=== PATIENT | male | born 1940 | race Caucasian/White ===

== ENCOUNTER 2018-02-06 00:23 | Outpatient (CLI) | payer MEDICARE, SELFPAY ==
--- NOTE | 2018-02-06 13:53 | MERGE_ITS ---
*[facility]* *[facility]* [address] [place] [address] Date of study: 02/06/2018 Transthoracic Echocardiography M-mode, complete 2D, complete spectral Doppler, and color Doppler *STUDY CONCLUSIONS* Summary: 1. Left ventricle: The cavity size was normal. Wall thickness was increased in a pattern of mild LVH. Systolic function was normal. The estimated ejection fraction was 60-65%. Wall motion was normal; there were no regional wall motion abnormalities. 2. Right ventricle: The cavity size was normal. Systolic function was normal. 3. Left atrium: The atrium was mildly dilated. 4. Aortic valve: A bioprosthesis was present and functioning normally. There was trivial regurgitation. Peak velocity (S): 2.3m/sec. Mean gradient (S): 11mm Hg. 5. Inferior vena cava: The vessel was normal in size. The respirophasic diameter changes were in the normal range (greater than or equal to 50%), consistent with normal central venous pressure. *PATIENT PRESENTATION* Height: 182.9cm ((72in) ) S/D Pressure: 159 / 81 Weight: 106.6kg ((234.5lb) ) BSA: 2.36m^2 Test start time: 01:53 PM. Test stop time: 03:10 PM. 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 Pertinent images and digital data are archived for permanent storage and are available for subsequent review. Comparison was made to the study of 01/07/2017. Study status: Routine. Transthoracic echocardiography. M-mode, complete 2D, complete spectral Doppler, and color Doppler. A Transthoracic Echocardiogram was performed. Scanning was performed from the parasternal, apical, subcostal, and suprasternal notch acoustic windows. Images were obtained using an [employer] 2000 cardiac ultrasound machine. Image quality was adequate. Study completion: The patient tolerated the procedure well. There were no complications. History: PMH: Bioprosthetic Aortic Valve, Aortic Stenosis. *CARDIAC ANATOMY* Left ventricle: The cavity size was normal. Wall thickness was increased in a pattern of mild LVH. Systolic function was normal. The estimated ejection fraction was 60-65%. Wall motion was normal; there were no regional wall motion abnormalities. Findings consistent with diastolic dysfunction. There was no evidence of elevated ventricular filling pressure by Doppler parameters. Aortic valve: A bioprosthesis was present and functioning normally. Mobility was not restricted. Doppler: Transvalvular velocity was within the normal range. There was no stenosis. There was trivial regurgitation. VTI ratio of LVOT to aortic valve: 0.62. Valve area (VTI): 2.3cm^2. Indexed valve area (VTI): 1cm^2/m^2. Peak velocity ratio of LVOT to aortic valve: 0.51. Valve area (Vmax): 1.9cm^2. Indexed valve area (Vmax): 0.8cm^2/m^2. Mean velocity ratio of LVOT to aortic valve: 0.49. Valve area (Vmean): 1.8cm^2. Indexed valve area (Vmean): 0.8cm^2/m^2. Mean gradient (S): 11mm Hg. Peak gradient (S): 21mm Hg. Aorta: Aortic root: The aortic root was normal in size. Ascending aorta: The ascending aorta was normal in size. Mitral valve: Mildly thickened leaflets. Mobility was not restricted. Doppler: Transvalvular velocity was within the normal range. There was no evidence for stenosis. There was mild regurgitation. Valve area by pressure half-time: 1.9cm^2. Indexed valve area by pressure half-time: 0.8cm^2/m^2. Left atrium: The atrium was mildly dilated. Right ventricle: The cavity size was normal. Systolic function was normal. Pulmonic valve: Poorly visualized. Doppler: Transvalvular velocity was within the normal range. There was no evidence for stenosis. There was mild to moderate regurgitation. Tricuspid valve: Structurally normal valve. Doppler: Transvalvular velocity was within the normal range. There was no evidence for stenosis. There was mild regurgitation. Pulmonary artery: Poorly visualized. Pulmonary systolic pressure was within the normal range, in the range of 30mm Hg to 35mm Hg. Right atrium: The atrium was dilated. Pericardium: There was no pericardial effusion. Systemic veins: Inferior vena cava: The vessel was normal in size. The respirophasic diameter changes were in the normal range (greater than or equal to 50%), consistent with normal central venous pressure. Measurements Left ventricle Value 01/07/2017 Reference LV ID, ED, PLAX 5.2 cm 6.1 3.5 - 6.0 LV ID, ES, PLAX (H) 4.1 cm 4.1 2.1 - 4.0 LV PW thickness, ED, PLAX 1.2 cm 1.1 LV end-diastolic volume, 121 ml 94 1-p A2C LV ejection fraction, 1-p 65 % 44 A2C LV end-diastolic volume, 104 ml 115 1-p A4C LV ejection fraction, 1-p 70 % 52 A4C LV e', lateral 0.089 m/sec LV E/e', lateral 6 LV e', medial 0.05 m/sec LV E/e', medial 11 LV e', average 0.069 m/sec LV E/e', average 8 Ventricular septum Value 01/07/2017 Reference IVS thickness, ED, PLAX 1.2 cm 1.0 LVOT Value 01/07/2017 Reference LVOT ID, A-P 2.2 cm 2.4 LVOT area 3.7 cm^2 4.5 LVOT peak velocity, S 1.16 m/sec 1.02 LVOT mean velocity, S 0.75 m/sec LVOT VTI, S 24.1 cm 25.4 LVOT peak gradient, S 5.4 mm Hg LVOT mean gradient, S 2.7 mm Hg 2 Stroke volume (SV), LVOT 90 ml DP Stroke index (SV/bsa), 38 ml/m^2 LVOT DP Aortic valve Value 01/07/2017 Reference Aortic valve peak 2.3 m/sec 2.4 velocity, S Aortic valve mean 1.53 m/sec velocity, S Aortic valve VTI, S 39.0 cm Aortic mean gradient, S 11 mm Hg 12 Aortic peak gradient, S 21 mm Hg 23 VTI ratio, LVOT/AV 0.62 0.49 Aortic valve area, VTI 2.3 cm^2 2.2 Velocity ratio, peak, 0.51 0.42 LVOT/AV Aortic valve area, peak 1.9 cm^2 1.9 velocity Velocity ratio, mean, 0.49 LVOT/AV Aortic valve area, mean 1.8 cm^2 velocity Aortic valve area/bsa, 0.8 cm^2/m^2 mean velocity Aorta Value 01/07/2017 Reference Aortic root ID, ED 3.4 cm 3.7 Ascending aorta ID, A-P, S 3.8 cm 3.8 Left atrium Value 01/07/2017 Reference LA ID, A-P, ES 4.6 cm LA ID/bsa, A-P 2.0 cm/m^2 <=2.2 LA area, ES, A4C (H) 24.9 cm^2 26 8.8 - 23.4 LA area, ES, A2C 27 cm^2 LA volume/bsa, S 39 ml/m^2 LA volume, ES, 2-p 84 ml LA volume/bsa, ES, 2-p 36 ml/m^2 LA/aortic root ratio 1.36 1.12 Mitral valve Value 01/07/2017 Reference Mitral E-wave peak 0.55 m/sec 0.63 velocity Mitral A-wave peak 0.89 m/sec 0.86 velocity Mitral deceleration time (H) 410 ms 150 - 230 Mitral pressure half-time 119 ms 80 Mitral E/A ratio, peak 0.61 0.74 Mitral valve area, PHT, DP 1.9 cm^2 2.7 Tricuspid valve Value 01/07/2017 Reference Tricuspid regurg peak 2.6 m/sec 2.7 velocity Tricuspid peak RV-RA 27.5 mm Hg 30 gradient Right atrium Value 01/07/2017 Reference RA area, ES, A4C (H) 29.9 cm^2 27 8.3 - 19.5 Legend: (L) and (H) thiago values outside specified reference range. I have personally reviewed the images and have reviewed and edited the reported findings. Electronically signed by Tiffany De Oliveira 02/07/2018 16:02
== END 2018-02-06 00:43 ==
PROVIDERS: PCP Family Medicine; Visit Provider Internal Medicine Interventional Cardiology
DX: I35.0 Nonrheumatic aortic (valve) stenosis (principal); Z95.2 Presence of prosthetic heart valve; I51.7 Cardiomegaly
CPT/HCPCS: 93306

== ENCOUNTER → 2018-02-23 10:43 | Outpatient (BNVA) | payer MEDICARE, SELFPAY | PROVIDERS: Visit Provider Internal Medicine Interventional Cardiology | DX: I35.0 Nonrheumatic aortic (valve) stenosis (principal); R00.2 Palpitations; I10 Essential (primary) hypertension | CPT/HCPCS: 99213 ==

== ENCOUNTER 2018-02-27 02:44 | Outpatient (CLI) | payer MEDICARE, SELFPAY ==
[2018-02-27 11:28] LABS: ALT 36 U/L (12-78); AST 21 U/L (15-37); Alkaline Phosphatase 63 U/L (46-116); Bilirubin, Direct 0.19 mg/dL (0.00-0.20); Bilirubin, Total 0.8 mg/dL (0.2-1.0); Total Protein 7.1 g/dL (6.4-8.2)
[2018-02-27 11:40] LABS: Cholesterol 185 mg/dL (50-200); HDL Cholesterol 52 mg/dL (40-60); LDL CHOLESTEROL 115 mg/dL (<100); Triglyceride 118 mg/dL (30-150)
== END 2018-02-27 03:04 ==
PROVIDERS: PCP Family Medicine; Visit Provider Internal Medicine Interventional Cardiology
DX: E78.5 Hyperlipidemia, unspecified (principal); I35.0 Nonrheumatic aortic (valve) stenosis
CPT/HCPCS: 36415; 80061; 80076; 83721

== ENCOUNTER 2019-05-26 00:55 | Outpatient (CLI) | payer MEDICARE, SELFPAY ==
[2019-05-26 10:48] LABS: Anion Gap 9.3 mmol/L (3-11); BUN 20 mg/dL (7-18); CO2 28.7 mmol/L (21.0-32.0); CREATININE 0.83 mg/dL (0.70-1.30); Calcium 9.2 mg/dL (8.5-10.1); Chloride 106 mmol/L (98-107); Glucose 100 mg/dL (74-106); Potassium 4.5 mmol/L (3.5-5.1); Sodium 144 mmol/L (136-145)
== END 2019-05-26 01:15 ==
PROVIDERS: PCP Nurse Practitioner; Visit Provider Family Medicine
DX: I10 Essential (primary) hypertension (principal)
CPT/HCPCS: 36415; 80048

== ENCOUNTER 2019-11-01 14:19 | Outpatient (REF) | payer MEDICARE, SELFPAY ==
[2019-11-01 15:43] LABS: Bilirubin Negative (Negative); Blood Negative (Negative); Clarity Clear (Clear); Glucose Negative (Negative); Ketones Negative (Negative); Leukocyte Esterase Negative (Negative); Nitrite Negative (Negative); Specific Gravity 1.025 (1.005-1.025); pH 5.5 (5-8)
== END 2019-11-01 14:39 ==
LOC: LBN 14:19
PROVIDERS: PCP Nurse Practitioner; Visit Provider Family Medicine
DX: N20.0 Calculus of kidney (principal); R82.998 Other abnormal findings in urine
CPT/HCPCS: 81003

== ENCOUNTER 2020-05-31 03:59 | Outpatient (CLI) | payer MEDICARE, SELFPAY ==
[2020-05-31 12:56] LABS: Calculated LDL 90 mg/dL (<100); Cholesterol 164 mg/dL (<200); HDL Cholesterol 54 mg/dL (40-60); Triglyceride 104 mg/dL (<150)
== END 2020-05-31 04:19 ==
PROVIDERS: PCP Nurse Practitioner; Visit Provider Nurse Practitioner
DX: I10 Essential (primary) hypertension (principal)
CPT/HCPCS: 36415; 80061; 82565

== ENCOUNTER → 2020-06-02 08:58 | Outpatient (BNVA) | payer MEDICARE, SELFPAY | PROVIDERS: PCP Nurse Practitioner; Referring Provider Nurse Practitioner; Visit Provider Internal Medicine Cardiovascular Disease | DX: I35.0 Nonrheumatic aortic (valve) stenosis (principal); Z95.3 Presence of xenogenic heart valve; R00.2 Palpitations; I10 Essential (primary) hypertension; E78.5 Hyperlipidemia, unspecified | CPT/HCPCS: 99215 ==

== ENCOUNTER 2020-06-21 02:16 | Outpatient (CLI) | payer MEDICARE, SELFPAY ==
--- NOTE | 2020-06-21 13:52 | DI.US_ITS ---
APPROVED REPORT EXAM: Comprehensive 2D, Doppler, and color-flow Echocardiogram Patient Location: Out-Patient Reinforcing Steel Erector: Sujey Lima RDCS (AE) Indications: Bioprosthetic Aortic Valve, Palpitations, Aortic Valve Stenosis Other Information Study Quality: Adequate Conclusion Left Ventricle : The left ventricle is normal size. The left ventricular systolic function is normal. The left ventricular ejection fraction is within the normal range. There is normal left ventricular wall thickness. There is normal LV segmental wall motion. The left ventricular diastolic function is normal. LVEF is 60%. Right Ventricle : The right ventricle is normal size. The right ventricular systolic function is norm al. The RVSP is 33.8 mmHg. Atria : The right atrium size is normal. Left atrium is mildly dilated. Aortic Valve : A bioprosthetic aortic valve is present. It appears to be functioning normally withou t any perivalvular leak. Trace aortic regurgitation. Peak aortic valve gradient is 22.8mmHg. Mean gra dient is 12 mmHg. Mitral Valve : Moderate mitral annular calcification. Mild mitral regurgitation. No evidence of tangela l valve stenosis. Please see remainder of study for further details. Compared to study from 02/06/2018, there is no significant change. Wall motion Left Ventricle The left ventricle is normal size. The left ventricular systolic function is normal. The left ventric ular ejection fraction is within the normal range. There is normal left ventricular wall thickness. T here is normal LV segmental wall motion. The left ventricular diastolic function is normal. There is no ventricular septal defect visualized. LVEF is 60%. Right Ventricle The right ventricle is normal size. The right ventricular systolic function is normal. The RVSP is 33 .8 mmHg. Atria Left atrium is mildly dilated. The right atrium size is normal. The interatrial septum is intact with no evidence for an atrial septal defect. Aortic Valve A bioprosthetic aortic valve is present. It appears to be functioning normally without any perivalvul ar leak. Peak aortic valve gradient is 22.8mmHg. Mean gradient is 12 mmHg. Trace aortic regurgitation . Mitral Valve Moderate mitral annular calcification. No evidence of mitral valve stenosis. Mild mitral regurgitatio n. Tricuspid Valve The tricuspid valve is normal in structure. There is no tricuspid valve stenosis. Mild to moderate tr icuspid regurgitation. Pulmonic Valve The pulmonary valve is normal in structure. There is no pulmonic valvular stenosis. Moderate pulmonic regurgitation. Great Vessels The aortic root is normal in size. The ascending aorta is mildly dilated. Aortic arch is normal in ca liber. IVC is normal in size and collapses >50% with inspiration. Pericardium There is no pericardial effusion. 2D Dimensions IVSD d PLAX 0.97 cm M: 0.6-1.2 LV Vol A2C d MOD 132.2 mL LVPW d PLAX 0.97 cm M: 0.6 - 1.2 LV Vol A4C d MOD 132.2 mL LVID d PLAX 5.67 cm M: 4.2 - 5.8 LA vol/ BSA A2C s A-L 39.9 mL/m2 LVDs 3.25 cm M: 2.5 - 4.0 LA vol/ BSA A4C s A-L 29.1 mL/m2 Ao Root d 3.49 cm M: 3.1 - 3.7 LA Vol/ BSA Biplane s A-L 34.4 mL/m2 RA Area A4C 22.67 cm2 LA Area A4C s MOD 23.19 cm2 RA Vol/ BSA A4C s A-L 32.2 mL/m2 LA Area A2C s MOD 27.46 cm2 Ao Asc Diam d 3.86 cm M: 2.6 - 3.4 LV EF A4C MOD 61.8 % LV EF Teichholz 72.6 % LV EF A2C MOD 60.0 % LVEF (Rangel's) 61.21 % M: 52 - 72 LV EF Biplane MOD 61.2 % LV Volume 95.86 mL M: 62 - 150 SV 82.03 mL LV Volume Index 41.31 mL/m2 M: 34 - 74 SV Index 35.32 mL/m2 LV Vol Biplane MOD 134.0 mL FS 42.20 % M-Mode TAPSE 2.60 cm (M/F) >1.7 LV Diastology MV E' medial 0.069 (>0.07 m/s) E/A Ratio 0.8 LV E/e MED 11.25 (<14) MV E Vmax 0.78 (0.4-1.3 m/s) MV E' lateral 0.064 (>0.1 m/s) MV A Vmax 0.95 (0.4-1.3 m/s) LV E/e LAT 12.10 (<14) MV E/A Ratio 0.79 MV E/E' medial 11.27 MV E/E' lateral 12.13 Aortic Valve LVOT Area 3.65 cm2 AoV Area Vmax 2.34 cm2 LVOT Vmax 1.53 m/s AoV Area/ BSA (Vmax) 1.01 cm2/m2 LVOT Mean Mario. 1.09 m/s MARISOL Mean Mario. 2.42 cm2 LVOT Peak Grad 9.4 mmHg MARISOL Mean Mario. Index 1.04 cm2/m2 LVOT Mean Grad 5.4 mmHg LVOT VTI 0.352 m LVOT Diam s 2.15 cm AoV Vmax 2.39 m/s Velocity Ratio 0.64 AoV Mean Mario. 1.64 m/s AoV Peak Grad 22.8 mmHg LVOT SV 128.46 mL AoV Mean Grad 12.1 mmHg AoV VTI 0.516 m AoV Area VTI 2.49 cm2 AoV Area/ BSA (VTI) 1.07 cm/m2 Mitral Valve MV DT 244 (160-240 msec) MV PHT 71 msec MV Area PHT 3.10 cm2 MV VTI 0.381 m MV Area VTI 3.37 (4.0-6.0 cm2) Pulmonary Valve PV Vmax 1.18 (0.5-1.5 m/s) RVOT Peak Gr. 1.58 mmHg PV Peak Grad 5.6 mmHg RVOT Mean Gr. 0.85 mmHg PV Mean Grad 2.5 mmHg RVOT VTI 0.160 m PV VTI 0.236 m RVOT Vmax 0.63 m/s Tricuspid Valve TR Peak Grad 30.7 mmHg TR Vmax 2.77 m/s RA Pressure 3.00 mmHg RVSP (TR) 33.8 mmHg
== END 2020-06-21 02:17 ==
LOC: DI 02:16
PROVIDERS: PCP Nurse Practitioner; Visit Provider Internal Medicine Cardiovascular Disease
DX: I08.0 Rheumatic disorders of both mitral and aortic valves (principal); R00.2 Palpitations; Z95.3 Presence of xenogenic heart valve
CPT/HCPCS: 93306

== ENCOUNTER 2020-06-21 03:12 | Outpatient (CLI) | payer MEDICARE, SELFPAY ==
--- NOTE | 2020-07-07 08:46 | W.ZIOMONITOR ---
Date of service: 07/07/20 Time of Service: 08:46 14 Day Certified Alcohol Drug Counselor Referring Provider:: Roxana Indications:: Palpitations Note: This is a 14-day Holter monitor. The predominant rhythm was sinus with an average heart rate of 53, minimum 40 and maximum 132 There were rare atrial and ventricular ectopic beats There was no ventricular tachycardia atrial fibrillation high-grade AV block or pauses greater than 3 seconds There were several brief self-limited atrial runs longest of which lasted 9 beats. These were asymptomatic. Patient triggered events corresponded to sinus rhythm , generally heart rates of 67-74
== END 2020-06-21 03:13 | disposition home or self-care (01) ==
LOC: RT 03:12
PROVIDERS: PCP Nurse Practitioner; Visit Provider Internal Medicine Cardiovascular Disease
DX: R00.2 Palpitations (principal); I08.0 Rheumatic disorders of both mitral and aortic valves; Z95.3 Presence of xenogenic heart valve
CPT/HCPCS: 93246; 93306

== ENCOUNTER 2020-07-07 08:46 | Outpatient (CLI) | payer MEDICARE, SELFPAY | END 2020-07-07 08:47 | LOC: CARDO 08-07 15:49 | PROVIDERS: PCP Nurse Practitioner; Referring Provider Internal Medicine Cardiovascular Disease; Visit Provider Internal Medicine Cardiovascular Disease | DX: R00.2 Palpitations (principal); I49.1 Atrial premature depolarization | CPT/HCPCS: 93248 ==

== ENCOUNTER → 2020-07-21 12:38 | Outpatient (BNVA) | payer MEDICARE, SELFPAY | PROVIDERS: PCP Nurse Practitioner; Referring Provider Nurse Practitioner; Visit Provider Internal Medicine Cardiovascular Disease | DX: I35.0 Nonrheumatic aortic (valve) stenosis (principal); I10 Essential (primary) hypertension; E78.5 Hyperlipidemia, unspecified; R00.2 Palpitations | CPT/HCPCS: 99213 ==

== ENCOUNTER 2021-06-05 04:12 | Outpatient (CLI) | payer MEDICARE, SELFPAY ==
[2021-06-05 13:29] LABS: Calculated LDL 103 mg/dL (<100); Cholesterol 180 mg/dL (<200); HDL Cholesterol 59 mg/dL (40-60); Triglyceride 94 mg/dL (<150)
== END 2021-06-05 04:13 | disposition home or self-care (01) ==
LOC: LBO 04:13
PROVIDERS: PCP Nurse Practitioner; Visit Provider Nurse Practitioner
DX: E78.5 Hyperlipidemia, unspecified (principal)
CPT/HCPCS: 36415; 80061

== ENCOUNTER → 2021-08-07 12:53 | Outpatient (BNVA) | payer MEDICARE, SELFPAY | PROVIDERS: PCP Nurse Practitioner; Referring Provider Nurse Practitioner; Visit Provider Internal Medicine Cardiovascular Disease | DX: I35.0 Nonrheumatic aortic (valve) stenosis (principal); I10 Essential (primary) hypertension | CPT/HCPCS: 99213 ==

== ENCOUNTER → 2022-08-08 13:31 | Outpatient (BNVA) | payer MEDICARE, SELFPAY | PROVIDERS: PCP Nurse Practitioner Family; Visit Provider Internal Medicine Cardiovascular Disease | DX: I35.0 Nonrheumatic aortic (valve) stenosis (principal); Z95.3 Presence of xenogenic heart valve | CPT/HCPCS: 99213 ==

== ENCOUNTER 2023-06-16 05:13 | Outpatient (CLI) | payer MEDICARE, SELFPAY ==
[2023-06-16 12:42] LABS: Abs Immature Grans 0.02 10^3/uL (0.0-0.06); Absolute Basophil Count 0.04 10^3/uL (0.0-0.2); Absolute Eosinophil Count 0.11 10^3/uL (0.0-0.7); Absolute Lymphocyte Count 1.59 10^3/uL (1.2-3.4); Absolute Monocyte Count 0.68 10^3/uL (0.1-0.8); Absolute Neutrophil Count 2.62 10^3/uL (1.2-6.7); Basophils % 0.8; Eosinophils % 2.2; HCT 42.3 % (40.0-50.0); Immature Grans % 0.4; Lymphocytes % 31.4; MCH 33.6 pg (27.0-33.0); MCHC 35.5 % (32.0-36.0); MCV 95 fL (80-95); MPV 10.8 fL (8.0-11.0); Monocytes % 13.4; Neutrophils % 51.8; Platelet Count 127 10^3/uL (130-400); RBC 4.46 10^6/uL (4.36-5.78); RDW 12.7 % (11.8-14.1); RDW-SD 43.9 fL; WBC 5.06 10^3/uL (4.4-10.8)
[2023-06-16 12:59] LABS: ALT 31 U/L (16-63); AST 22 U/L (15-37); Albumin 3.6 g/dL (3.4-5.0); Alkaline Phosphatase 58 U/L (46-116); Anion Gap 8.8 mmol/L (3-11); BUN 22 mg/dL (7-18); Bilirubin, Total 0.8 mg/dL (0.2-1.0); CO2 28.2 mmol/L (21.0-32.0); CREATININE 0.9 mg/dL (0.70-1.30); Calcium 9.1 mg/dL (8.5-10.1); Calculated LDL 55 mg/dL (<100); Chloride 105 mmol/L (98-107); Cholesterol 127 mg/dL (<200); Glucose 108 mg/dL (74-106); HDL Cholesterol 62 mg/dL (40-60); Potassium 3.8 mmol/L (3.5-5.1); Sodium 142 mmol/L (136-145); Total Protein 7.3 g/dL (6.4-8.2); Triglyceride 53 mg/dL (<150)
[2023-06-17 17:42] LABS: PSA, Ultrasensitive 0.61 ng/mL (<= 7.2)
== END 2023-06-16 05:14 | disposition home or self-care (01) ==
PROVIDERS: PCP Nurse Practitioner Family; Visit Provider Nurse Practitioner Family
DX: I10 Essential (primary) hypertension (principal); N20.0 Calculus of kidney; C61 Malignant neoplasm of prostate
CPT/HCPCS: 36415; 80053; 80061; 84153; 85025

== ENCOUNTER → 2023-07-18 00:04 | Outpatient (CLI) | payer MEDICARE, SELFPAY ==
--- NOTE | 2023-07-18 12:30 | DI.US_ITS ---
APPROVED REPORT EXAM: Comprehensive 2D, Doppler, and color-flow Echocardiogram Patient Location: Out-Patient Wind Turbine Installer: Dave Macdonald RDCS (AE) Indications: Check AVR, sleep apnea, aortic valve stenosis, HTN Conclusion Normal left ventricular wall thickness and chamber size. Ejection fraction is 60%. Wall motion is no rmal Mildly enlarged right ventricle Both atria are moderately dilated There is a bioprosthetic aortic valve. There is no aortic regurgitation. Mean gradient is 12 mmHg The tip of the anterior mitral leaflet is calcified. There is mild mitral regurgitation Mild to moderate tricuspid regurgitation. Estimated right ventricular systolic pressure is 32 mmHg Wall motion Left Ventricle The left ventricle is normal size. The left ventricular systolic function is normal. The left ventric ular ejection fraction is within the normal range. There is normal left ventricular wall thickness. T here is normal LV segmental wall motion. There is no ventricular septal defect visualized. LVEF is 62 -65%. Right Ventricle Right ventricle is mildly dilated. Right ventricular systolic function is grossly normal. Atria Left atrium is moderately dilated. Right atrium is moderately dilated. The interatrial septum is inta ct with no evidence for an atrial septal defect. Aortic Valve Bioprosthetic aortic valve is present. Peak aortic valve gradient is 19.7 mmHg. Highest mean aortic v alve gradient is 12.14 mmHg. Calculated MARISOL by the continuity equation is 1.2 cm2. No aortic regurgit ation is present. Mitral Valve Calcified tip anterior mitral leaflet No evidence of mitral valve stenosis. Mild mitral regurgitation . Tricuspid Valve The tricuspid valve is normal in structure. There is no tricuspid valve stenosis. Mild to moderate tr icuspid regurgitation. The RVSP is 32.5 mmHg. Pulmonic Valve The pulmonary valve is normal in structure. There is no pulmonic valvular stenosis. Moderate pulmonic regurgitation. Great Vessels The aortic root is normal in size. The ascending aorta is mildly dilated. Aortic arch is not well vis ualized. IVC is normal in size and collapses >50% with inspiration. Pericardium There is no pericardial effusion. 2D Dimensions IVSD d PLAX 0.90 cm M: 0.6-1.2 Ao Root d 3.13 cm M: 3.1 - 3.7 LVPW d PLAX 0.92 cm M: 0.6 - 1.2 Ao Asc Diam d 3.60 cm M: 2.6 - 3.4 LVID d PLAX 5.79 cm M: 4.2 - 5.8 LVDs 3.70 cm M: 2.5 - 4.0 LV EF Teichholz 64.8 % FS 35.99 % LV EDV (Teich) 165.6 mL LV ESV (Teich) 58.2 mL Stroke Vol Index (Teich) 48.13 M-Mode TAPSE 2.40 cm (M/F) >1.7 Auto EF LV EDV A4C 152.2 mL LV EDV A2C 124.1 mL LV EDV BP 139.0 mL LV ESV A4C 55.6 mL LV ESV A2C 46.8 mL LV ESV BP 51.1 mL LVEF(%) A4C 63.5 % LVEF(%) A2C 62.3 % LVEF(%) BP 63.2 % LV SV A4C 96.7 ml LV SV A2C 77.3 ml LV SV BP 87.9 ml LV CO A4C 4.9 L/min LV CO A2C 4.5 L/min LV CO BP 4.7 L/min HR A4C 50.85 BPM HR A2C 58.35 BPM LV EDV Index (BP) LA Volume LA Length A4C 6.4 cm LA Length A2C 6.2 cm LA Area A4C s 18.52 cm2 LA Area A2C s 18.95 cm2 LA Vol A4C A-L 45.46 mL LA Vol A2C A-L 49.44 mL LA Vol Biplane A-L 48.3 mL LA Vol/BSA A4C A-L LA Vol/BSA A2C A-L LA Vol/BSA BP A-L 21.7 mL/m2 LA Vol A4C MOD 44.2 mL LA Vol A2C MOD 48.6 mL LA Vol BP MOD 47.1 mL RA Volume RA Area A4C 24.8 cm2 RA ESV A4C (A-L) 84.8mL RA Vol/BSA A4C A-L RA Length A4C 6.1 cm RA ESV A4C (MOD) 86.7mL LV Diastology MV E' medial 0.067 (>0.07 m/s) MV E Vmax 0.74 (0.4-1.3 m/s) MV E/E' MED 11.08 (<14) MV A Vmax 1.15 (0.4-1.3 m/s) MV E' lateral 0.107 (>0.1 m/s) E/A Ratio 0.6 MV E/E' LAT 6.91 (<14) MV E' Average 0.087 m/s MV E/E'(average) 8.51 Aortic Valve AoV Vmax 2.22 m/s LVOT Vmax 1.14 m/s AoV Peak Grad 19.7 mmHg LVOT Peak Grad 5.2 mmHg AoV Area (Vmax) 1.24 cm2 LVOT VTI 0.252 m AoV VTI 0.490 m LVOT Mean Grad 2.6 mmHg AoV Mean Mario. 1.67 m/s LVOT SV 60.65 mL AoV Mean Grad 12.1 mmHg LVOT Diam s 1.75 cm AoV Area (VTI) 1.24 cm2 Velocity Ratio 0.51 Mitral Valve MV DT 343 (160-240 msec) Pulmonary Valve PV Vmax 1.26 (0.5-1.5 m/s) RVOT Vmax 0.45 m/s PV Peak Grad 6.3 mmHg RVOT Peak Gr. 0.8 mmHg PV Mean Mario 0.72 m/s RVOT VTI 0.113 m PV Mean Grad 2.6 mmHg RVOT Mean Gr. 0.5 mmHg Tricuspid Valve RA Pressure 3.00 mmHg TR Vmax 2.72 m/s TR Peak Grad 29.5 mmHg RVSP (TR) 32.5 mmHg
== END ==
PROVIDERS: PCP Nurse Practitioner Family; Visit Provider Internal Medicine Cardiovascular Disease
DX: G47.33 Obstructive sleep apnea (adult) (pediatric) (principal); I35.0 Nonrheumatic aortic (valve) stenosis
CPT/HCPCS: 93306

== ENCOUNTER 2023-08-07 08:17 | Outpatient (CLI) | payer MEDICARE, SELFPAY ==
--- NOTE | 2023-08-07 08:15 | RT.EKG_ITS ---
APPROVED REPORT Exam: Resting ECG Reason for Exam: palpitation Patient Location: O HR:56 bpm ECG Measurements Heart Rate 56 AXIS WA 97 P 8 QRSd 162 QRS -46 QT 464 T -11 QTc 448 Conclusion Sinus rhythm...normal P axis, V-rate 50- 99 Atrial premature complex...SV complex w/ short R-R interval Short WA interval...WA <110mS RBBB and LAFB...QRSd >120mS, axis(-40,240) Left ventricular hypertrophy...multiple voltage criteria Baseline wander in lead(s) II,III,aVF
== END 2023-08-07 08:18 | disposition home or self-care (01) ==
LOC: DI.CARD 08:18
PROVIDERS: PCP Nurse Practitioner Family; Visit Provider Internal Medicine Cardiovascular Disease
DX: R00.2 Palpitations (principal)
CPT/HCPCS: 93010

== ENCOUNTER → 2023-08-07 13:37 | Outpatient (BNVA) | payer MEDICARE, SELFPAY | PROVIDERS: PCP Nurse Practitioner Family; Visit Provider Internal Medicine Cardiovascular Disease | DX: I44.4 Left anterior fascicular block (principal); R94.31 Abnormal electrocardiogram [ECG] [EKG]; R00.2 Palpitations; I35.0 Nonrheumatic aortic (valve) stenosis | CPT/HCPCS: 93005; 99213 ==

== ENCOUNTER 2023-10-07 01:22 | Outpatient (CLI) | payer MEDICARE, SELFPAY ==
[2023-10-07 12:43] LABS: Abs Immature Grans 0.02 10^3/uL (0.0-0.06); Absolute Basophil Count 0.07 10^3/uL (0.0-0.2); Absolute Eosinophil Count 0.23 10^3/uL (0.0-0.7); Absolute Lymphocyte Count 1.56 10^3/uL (1.2-3.4); Absolute Monocyte Count 0.44 10^3/uL (0.1-0.8); Absolute Neutrophil Count 3.14 10^3/uL (1.2-6.7); Basophils % 1.3 %; Eosinophils % 4.2 %; HCT 41.6 % (40.0-50.0); HGB 14.2 g/dL (13.5-17.5); Immature Grans % 0.4 %; Lymphocytes % 28.6 %; MCH 33.2 pg (27.0-33.0); MCHC 34.1 % (32.0-36.0); MCV 97 fL (80-95); MPV 10.2 fL (8.0-11.0); Monocytes % 8.1 %; Neutrophils % 57.4 %; Platelet Count 143 10^3/uL (130-400); RBC 4.28 10^6/uL (4.36-5.78); RDW 12.9 % (11.8-14.1); WBC 5.46 10^3/uL (4.4-10.8)
[2023-10-07 13:29] LABS: ALT 27 U/L (16-63); AST 16 U/L (15-37); Albumin 3.8 g/dL (3.4-5.0); Alkaline Phosphatase 56 U/L (46-116); Anion Gap 10.9 mmol/L (3-11); BUN 24 mg/dL (7-18); Bilirubin, Total 0.7 mg/dL (0.2-1.0); CO2 24.1 mmol/L (21.0-32.0); CREATININE 0.9 mg/dL (0.70-1.30); Calcium 8.9 mg/dL (8.5-10.1); Chloride 106 mmol/L (98-107); Glucose 114 mg/dL (74-106); Potassium 3.9 mmol/L (3.5-5.1); Sodium 141 mmol/L (136-145)
[2023-10-09 13:00] LABS: PSA, Ultrasensitive 0.53 ng/mL (<= 7.2)
[2023-10-12 14:41] LABS: Testosterone, Total 393 ng/dL (240-950)
== END 2023-10-07 01:23 | disposition home or self-care (01) ==
LOC: LOS 01:22
PROVIDERS: PCP Nurse Practitioner Family; Visit Provider Internal Medicine
DX: C61 Malignant neoplasm of prostate (principal)
CPT/HCPCS: 36415; 80053; 84153; 84403; 85025

== ENCOUNTER 2024-01-09 01:22 | Outpatient (CLI) | payer MEDICARE, SELFPAY ==
--- OUTSIDE RECORDS SUMMARY | 2024-01-09 01:24 | XMS_ITS | Encounter Summary ---
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 Eliel Vanessa MD [address] [place] [id number] Franki Gutierrez MD [facility] [address] [place] [address] Referral ID Status Reason Start Date Expiration Date Visits Re quested Visits Authorized [id number] Closed 09/23/2023 09/22/2024 1 1 Encounter Details Date Type Department Care Team (Latest Contact Info) Description 10/08/2023 12:00 PM EDT Procedure visit Dermatology at [facility] [address] [place] [address] Franki Gutierrez MD [facility] [address] [place] [address] Squamous cell carcinoma of scalp Social History Tobacco Use Types Packs/Day Years Used Date Smoking Tobacco: Former Cigars Smokeless Tobacco: Never Alcohol Use Standard Drinks/Week Comments Yes 7 (1 standard drink = 0.6 oz pur e alcohol) Sex and Gender Information Value Date Recorded Sex Assigned at Not on file Gender Identity Not on file Sexual Orientation Not on file documented as of this encounter Last Filed Vital Signs Vital Sign Reading Time Taken Comments Blood Pressure 158/73 10/08/2023 11:44 AM EDT Pulse 61 10/08/2023 11:44 AM EDT Temperature - - Respiratory Rate - - Oxygen Saturation - - Inhaled Oxygen Concentration - - Weight - - Height - - Body Mass Index - - documented in this encounter Progress Notes * Franki Gutierrez MD - 10/08/2023 12:00 PM EDT Images from the original note were not included. Summary of Procedure(s): Site: left parietal scalp Tumor Type: invasive Squamous Cell Carcinoma, moderately to poorly differentiated Stages to clear tumor: 2 Repair: complex partial linear closure Images: The patient was asked to call with any issues and is aware that I am available 02/12 should questions arise. Franki Gutierrez MD PhD Mohs Micrographic Surgery and Dermatologic Oncology Department of Dermatology Please note that I have reviewed the preoperative checklist from today's nursing visit including relevant social history and medications. I have reviewed the preoperative photos if available and the biopsy report. VITAL SIGNS: BP 158/73 (BP Location (NBP): Left arm, Patient Position: Sitting, BP Cuff Sizes: Adult (25-34 cm)) Pulse 61 PHYSICAL EXAMINATION: General: patient is awake, alert, oriented and in no acute distress. Skin: Focused examination of surgical site(s) performed which shows a well healed biopsy site with surrounding ulcerated plaque and poorly defined induration. No palpable clinical lymphadenopathy. PHYSICIAN REVIEW OF REPORTS, RECORDS, IMAGES: 1) The accompanying pathology report(s) associated with aforementioned biopsy slide(s) were/was also reviewed. Assessment: Ayad Kauffman Sr. is a 82 y.o. male presenting for: 1. 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 Plan: 1. Findings from the biopsy report, today's clinical exam, and other pertinent details were reviewed with patient today. All questions were answered. 2. Discussed treatment options based on the above findings. We recommended Mohs micrographic surgery for treatment of this tumor. Mohs micrographic surgery was indicated due to patient, site and/or tumor characteristics (see operative report for specific indication). 3. We discussed risks, benefits, and alternative treatment options to the Mohs micrographic surgeryprocedure and pertinent information including but not limited to the following: Risks include bleeding, infection, scar, recurrence, incomplete tumor removal or inability to cure with surgery alone if the tumor features are more aggressive than the initial pathology indicates. Occasionally, additional adjuvant treatments may be recommended. Additional risks include large wound, prolonged wound and healing, pain, swelling, bruising, increased appearance of vessels or worsening erythema of baseline skin; more rarely risks include damage to underlying structures such as nerves, cartilage, or muscle which could lead to temporary or permanent loss of sensation or motor function. Benefit is precise tumor removal If reconstruction is performed, it is specific to the patient and defect. Discussed that the shape, size, depth of the wound is often not known until the tumor is cleared and thus the reconstruction options are sometimes not known until after tumor clearance. Occasionally,referrals to other providers may be recommended for reconstruction based on patient preference and need. Reviewed the pros and cons of common reconstructions used for this tumor type, size, and location, and that reconstruction may lead to change in appearance. Natural history of scar was discussed, including that the scar will continue to mature for 1-2 years. Recommended avoidance of special ointments or scar creams, and avoidance of direct sun exposure to the scar for optimal recovery. Reviewed that there are some aspects of cosmesis that are dependent on patient's characteristics such as age, skin laxity/texture factors, inflammatory skin diseases such as rosacea, prior surgery/radiation, degree of actinic damage, smoking status, strength of the patient's immune system, diligentwound care, medications, and genetics. Having Mohs surgery may lead to physical limitations for optimal healing, such as restricted physical activity and heavy lifting. 4. Signs and symptoms of skin cancer reviewed. Patient to report any new, changing, or symptomatic lesions and follow up with his or her laborer laboratory or other skin provider. 5. Discussed avoiding direct sun exposure to scars for best cosmetic result. Note initiated by JAMIN Vann RN has performed the documentation for this encounter in the presence of and acting as a scribe for Dr. Gutierrez I performed the above scribed service and agree with the accuracy of the documentation in this encounter. Reviewed and signed by: Franki Gutierrez [facility] * Franki Gutierrez MD - 10/08/2023 12:00 PM EDT Mohs micrographic Surgery Operative Report Patient name: Ayad Kauffman Sr. : 1940 Date: 10/08/2023 Staff Surgeon and Pathologist: Franki Gutierrez MD PhD Nursing/Die Finisher Forging(s): Abby Arroyo RN, Taisha Mueller RN, Mariely Tejada DESK REPRESENTATIVE, Rochelle WaldenShauna NET WASHER, Evan Colunga DESK REPRESENTATIVE, Tiffanie Muñoz NET WASHER, Lucina HER, France Davalos RN, Irene Huitron RN Armorer Technician (s): Bri Rivera, Lula Knox, Evan Colunga CMA Pre-operative diagnosis: invasive Squamous Cell Carcinoma, moderately to poorly differentiated Post-operative diagnosis: same Location/Site: left parietal scalp Procedure: Mohs micrographic surgery Indication(s) for Mohs micrographic surgery: Anatomic location for tissue conservation and >2cm Size Stages: 2 Preoperative size of tumor: 2.8 x 3.0 cm Stage I The nature and purpose of the procedure, associated risks, possible consequences and complications,and alternative forms of treatment were explained in detail. We reviewed the possible repairs basedon the clinical appearance of tumor but discussed that often the repair options may not be known until the tumor has yao extirpated. Informed consent and permission to take photographs were obtained. The site was confirmed with the patient/authorized support representative/referring physician and/or a photograph form time of biopsy. A pre-operative time-out (procedural pause) was conducted with no unresolved discrepancies noted. Local anesthesia was obtained with 0.5 % lidocaine with 1:200,000 epinephrine. The surgical site was prepped and draped in the usual sterile manner. A 1-2 mm margin was excised around clinically evident tumor as a complete layer. Hemostasis was achieved by electrocoagulation. The excised tissue was oriented and divided into 2 sections, chromacoded, and submitted for frozen sections. The patient tolerated the procedure well and without complications. On my personal microscopic evaluation of the frozen sections, residual tumor was identified as POORLY-DIFFERENTIATED INVASIVE SQUAMOUS CELL CARCINOMA -- Arising from the epidermis is a pleomorphic proliferation of atypical keratinocytes with mitoses. Invasion into the dermis is noted. on sections A1 and A2 (see section number on map). Stage II The surgical site was re-anesthetized with 0.5 % lidocaine with 1:200,000 epinephrine, re-prepped and redraped in a sterile manner. The residual tumor was re-excised as a complete layer 2-3mm in thickness using the Mohs map to delineate area of residual tumor. Hemostasis was achieved with electrocoa gulation. The tissue was oriented and divided into 1 section, chromacoded, and submitted for frozensections. The patient tolerated the procedure well and without complications. On my personal microscopic evaluation of the frozen sections, no residual tumor was identified on the deep or outer border of the sections. Depth of excision: periosteum . Final defect size: 3.3 x 3.6 cm Franki Gutierrez MD PhD Mohs Micrographic Surgery and Dermatologic Oncology Department of Dermatology [address] [place] [address] Repair Operative Report (Complex Partial Linear Repair) Patient name: Ayad Kauffman Sr. : 1940 Clinical Diagnosis: 3.3 x 3.6 cm surgical defect secondary to Mohs microscopically controlled excision Location/Site: left parietal scalp Indication: repair of wound for mormonism of function/anatomy Procedure: Complex partial linear layered closure of Mohs defect Due to the size and location of the defect resulting from the complete removal of the tumor, the postoperative risk of hemorrhage, infection, and the possibility of serious deformity from scarring, and in order to restore proper function and prevent loss of function, the defect was closed in the following manner. The nature and purpose of the procedure, associated risks, possible consequences, complications andalternative methods of treatment were explained to the patient in detail. An informed consent was obtained. The operative site was anesthetized with 0.5% lidocaine with 1:200,000 epinephrine. The site was prepped and draped in the usual sterile manner. The edges of the defect were widely underminedat the dermal subcutaneous layer greater than the width of the defect as stated above. Hemostasis was achieved with electrocoagulation. The edges could then be approximated without excess tension. The deep tissues were apposed and sutured with 4.0 Monocryl sutures and the epidermal edges were approximated with 5-0 Fast Absorbing Gut running and/or interrupted sutures. The resulting complex linearclosure measured 4.9 cm with an area of second intention measuring 2.7 x 1.4 cm. The surgical site was cleaned and white petrolatum with a gauze pressure dressing applied. The patient tolerated the procedure well and without complications and was given both verbal and written instruction on postoperative wound care. Follow up as needed. The patient was discharged in good condition. Pre-op medication: cephalexin (Keflex) 2,000 mg PO once @ 1200 (see MAR) Total local anesthesia with 0.5 % lidocaine with 1:200,000 epinephrine used: 20 cc Franki Gutierrez MD PhD Mohs Micrographic Surgery and Dermatologic Oncology Department of Dermatology [address] [place] [id number] Note initiated by Taisha Mueller, RN Taisha Mueller, JAMIN has performed the documentation for this encounter in the presence of and acting as a scribe for Dr. Gutierrez I performed the above scribed service and agree with the accuracy of the documentation in this encounter. Reviewed and signed by: Franki Gutierrez [facility] documented in this encounter Plan of Treatment Upcoming Encounters Date Type Department Care Team (Late st Contact Info) Description 01/20/2024 9:30 AM EDT Office Visit Hematology/Oncology at [address] [phone] Miguelina Lucia APRN [facility] [place] [address] 02/27/2024 2:15 PM EDT Office Visit Dermatology at [address] [place] [phone] Eliel Vanessa MD [address], [place] [address] documented as of this encounter Visit Diagnoses Diagnosis Squamous cell carcinoma of scalp Squamous cell carcinoma of scalp and skin of neck documented in this encounter Administered Medications Inactive Administered Medications - up to 3 most recent administrations Medication Order MAR Action Action Date Dose Rate Site cephALEXin (Keflex) capsule 2,000 mg 2,000 mg, Oral, ONCE, 1 dose, On Fri10/08/23 at 1230, Routine, Indication for (Active or Suspected): Prophylaxis Given 10/08/2023 12:00 PM EDT 2,000 mg documented in this encounter Care Teams Roll Plugger Relationship Specialty Start Date End Date Александр, Desire Richard APRN [address] [facility] [address] [place] [address] PCP - General Internal Medicine 10/08/23 documented as of this encounter
--- OUTSIDE RECORDS SUMMARY | 2024-01-09 01:24 | XMS_ITS | Encounter Summary ---
Author Organization [facility] [place] [address] Care Team Providers Care Electrical Engineering Manager Name Role Phone Александр, Desiredamari Richard APRN Primary Care Provider [phone]- [phone] Reason for Visit * Reason Comments Squamous Cell Carcinoma Encounter Details Date Type Department Care Team (Latest Contact Info) Description 10/08/2023 11:45 AM EDT Clinical Support Dermatology at [facility] [address] [place] [phone] Franki Gutierrez MD [facility] [address] [place] [address] Squamous cell carcinoma of scalp Social History [...] on file documented as of this encounter Progress Notes * Taisha Mueller RN - 10/08/2023 11:45 AM EDT Mohs consultation and preoperative note (H&P) Patient Name: Ayad Kauffman Sr. Age: 82 y.o. Date of : 1940 Today's Date: 10/08/2023 REFERRING PROVIDER: Eliel Vanessa MD CC: Mohs micrographic surgery for treatment of a cutaneous tumor HPI: Ayad Kauffman Sr. is a 82 y.o. male presenting for biopsy-proven squamous cell carcinoma, invasive,moderately to poorly differentiated, location on the left parietal scalp. The dermatologic preoperative information sheet was reviewed with pertinent positive and negative as below. DERMATOLOGIC PRE-OPERATIVE EVALUATION AND REVIEW OF SYSTEMS History of Mohs surgery? no Pacemaker/Defibrillator? no Joint replacement or other implantable devices (e.g. Cochlear implant)? If yes then when? no Do you take a blood thinner? No History of organ transplant? no History of artificial valve or stroke? yes artifical heart valve (aortic) bovine placed in 2011 History of liver disease or bleeding disorder? no Do you have any medical problems that may affect your upcoming surgery? no Do you have any concerns regarding your upcoming surgery? no SOCIAL HISTORY: Makes Own Decisions: Yes Hearing aid or other devices: Yes, has hearing aids, doesn't wear them Relevant travel history or future plans: none Tobacco use (amount per day, type of tobacco): no Do you have any physical limitations that may affect your surgery?: no ALLERGIES: Allergies reviewed MEDICATIONS: Medications reviewed documented in this encounter Plan of Treatment Upcoming Encounters Date Type Department Care Team (Late st Contact Info) Description 01/20/2024 9:30 AM EDT Office Visit Hematology/Oncology at [address] [phone] Miguelina Lucia APRN [facility] [place] [address] 02/27/2024 2:15 PM EDT Office Visit Dermatology at [address] [place] [address] Eliel Vanessa MD [address] [facility], [place] [address] documented as of this encounter Visit Diagnoses Diagnosis Squamous cell carcinoma of scalp Squamous cell carcinoma of scalp and skin of neck documented in this encounter Care Teams Electrical Engineering Manager Relationship Specialty Start Date End Date Александр, Desire Richard APRN [address] [place] [address] [place] [address] PCP - General Internal Medicine 10/08/23 documented as of this encounter
--- OUTSIDE RECORDS SUMMARY | 2024-01-09 01:24 | XMS_ITS | Encounter Summary ---
Author Organization [facility] [place] [address] Care Team Providers Care Thimble Press Operator Name Role Phone Desire Fountain APRN Primary Care Provider +1- [phone] Encounter Details Date Type Department Care Team (Late st Contact Info) Description 07/15/2023 11:00 AM EST Office Visit Hematology/Oncology at [address] [phone] Ankur Doss MD [facility] DR HEMATOLOGY [place] [address] Miguelina Lucia APRN [facility] [place] [address] Malignant neoplasm of prostate (Primary Dx) Social History Tobacco Use Types Packs/Day Years [...] Sign Reading Time Taken Comments Blood Pressure 160/72 07/15/2023 11:06 AM EST Pulse 70 07/15/2023 11:06 AM EST Temperature 36.1 ??C (97 ??F) 07/15/2023 11:06 AM EST Respiratory Rate 16 07/15/2023 11:06 AM EST Oxygen Saturation 99% 07/15/2023 11:06 AM EST Inhaled Oxygen Concentration - - Weight 98.9 kg (218 lb) 07/15/2023 11:06 AM EST Height 185.4 cm (6' 0.99) 07/15/2023 11:06 AM E Body Mass Index 28.77 07/15/2023 11:06 AM EST documented in this encounter Progress Notes * Ankur Doss MD - 07/15/2023 11:00 AM EST Problem list 1. Prostate cancer Diagnosed in 2006 with a PSA of 4.8. He underwent laparoscopic prostatectomy. He was found of Michelle's 7 with perineural invasion but no extracapsular extension. He did well until his PSA began to rise in 2010. It andreina to 0.13 in January of 2011 and radiation was started along with 4-month Lupron in February of 2011. He completed radiation therapy July 03, 2011. PSA in 10/21 was <0.03. Hehas been following with serial PSAs since. 2. Aortic stenosis S/P Bovine Aortic valve replacement Interval history 01/27/23 Marco Antonio returns for followup of his prostate cancer. He continues to feel well. Maribell passed a kidney stone about a week ago. No changes in peripheral neuropathy.. 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 He continues to have issues with balance- in part due to neuropathy-he stands and moves slowly so he does not fall. He denies any chest pain, shortness of breath or cough. His appetite is about the same. He denies any blood in his urine or stools. Overall stable ROS is otherwise negative. PMH: Squamous cell carcinoma of skin, follows with Dr. Vanessa Social and family history: No interval changes since last visit Review of Systems Constitution: Negative. HENT: Negative. Eyes: Negative. Cardiovascular: Negative. No swelling. Respiratory: Negative. Skin: Squamous cell carcinoma Actinic keratoses bothersome on top of scalp- sees Derm Dr. Vanessa Musculoskeletal: Negative. Arthralgias- uses CBD oil. Gastrointestinal: Negative. Positive for intermittent diarrhea/cramping Genitourinary: Positive for frequency, nocturia and urgency. Does note ED since prostatectomy in 2006. Recurrent kidney stones. Neurological: Negative. Psychiatric/Behavioral: Negative. Physical Exam BP 160/72 (Patient Position: Sitting) Pulse 70 Temp 36.1 ??C (97 ??F) (Temporal) Resp 16 Ht185.4 cm (6' 0.99) Wt 98.9 kg (218 lb) SpO2 99% BMI 28.77 kg/m?? Constitutional: He is oriented to person, place, and time. He appears well- developed and well-nourished. HENT: Head: Normocephalic. Eyes: Pupils are equal, round, and reactive to light. Conjunctivae and EOM are normal. Neck: Normal range of motion. Neck supple. Cardiovascular: Normal rate and regular rhythm. Pulmonary/Chest: Effort normal and breath sounds normal. Abdominal: Soft. He exhibits no distension and no mass. There is no tenderness. There is no guarding. Musculoskeletal: Normal range of motion. He exhibits no edema. Lymphadenopathy: He has no cervical adenopathy. Neurological: He is alert and oriented to person, place, and time. Skin: Skin is warm and dry. Psychiatric: He has a normal mood and affect. His behavior is normal. Wt Readings from Last 3 Encounters: 07/15/23 98.9 kg (218 lb) 01/27/23 100.7 kg (222 lb) 07/16/22 100.9 kg (222 lb 6.4 oz) Pathology: 09/30/2006 Adenocarcinoma of the prostate Michelle pattern 3+4 Labs: 06/18/2023 PSA 0.61 WBC 5.06, hemoglobin 15, platelet count 127, ANC 2.62, creatinine 0.9, calcium 9.1, TB 0.8, AST 22, ALT 31, alkaline phosphatase 58, total protein 7.3, albumin 3.6. 11/07/20- WBC-6.4 Hgb/Hct-15.8/44.5 Plt-150 ANC-4.16 Na-141 K+-4.3 BUN/cr-19/0.91 Ca-9.5 Glucose-108 Albumin-4.6 T. Bili-0.7 Alk phos-72 AST-23 ALT-23 04/25/20- WBC-6.9 Hgb/Hct-15.6/45.5 Plt-167 ANC-4.36 Na-140 K+-3.8 BUN/Cr-18/0.99 Ca-9.1 Glucose-95 Albumin-4.6 T. Bili-0.5 Alk phos- 73 AST-23 ALT-23 10/26/19- WBC-6.3 Hgb/Hct-15.3/44.6 Plt-191 ANC-3.77 BUN-22 Cr-0.84 K+-4.1 Ca-9.6 LFTS unremarkable Date PSA Testosterone 06/18/2023 0.61 01/14/23 0.36 07/16/22 0.35 11/21/21 0.40 05/16/21 0.31 11/07/20 0.20 04/25/20 0.20 10/26/19 0.17 Results for MARIBELL KAUFFMAN SR. ( ) as of 04/27/2019 14:17 Ref. Range 03/20/2017 12:04 09/01/2017 13:22 03/04/2018 12:35 08/18/2018 11:20 03/09/2019 12:11 PSA Total (Ultrasensitive) Latest Ref Range: 0.00 - 4.00 ng/mL 0.12 0.08 0.10 0.08 0.15 Assessment/plan: #Prostate cancer: Initially diagnosed with prostatic adenocarcinoma Drummonds 3+4 in 2006, status post prostatectomy and salvage radiation with short term Lupron. PSA in 10/21 was <0.03. Mr Kauffman's PSA is stable at this point -0.36. It has been in this range for about 18 months now. Hedenies any urinary issues. He denies any other pain or symptoms. We will continue monitoring his PSA every six months. If it doubles within a six month period we may consider scans. His platelet count is lower today than it has been. Over the last 3 yrs it has drifted slowly down from 190K to 131K today. We will just continue to monitor at this point. 07/15/2023 PSA 0.61 up from 0.36 last visit. PSA consistent with biochemical recurrence of his prostate cancer but PSA doubling time around 2 years. Will see him back in 3 to 4 months with blood work. If PSA goes above 1 we will consider restaging him with PSMA PET scan Plan: 1. Follow up visit in 3 months with labs The plan was discussed with the patient in details. All questions were answered to the patients satisfaction documented in this encounter Plan of Treatment Upcoming Encounters Date Type Department Care Team (Late st Contact Info) Description 01/20/2024 9:30 AM EDT Office Visit Hematology/Oncology at [address] [phone] Miguelina Lucia APRN [facility] [place] [address] 02/27/2024 2:15 PM EDT Office Visit Dermatology at [place] [address] [place] [phone] Eliel Vanessa MD [address], [place] [address] Scheduled Orders Name Type Priority Associated Diagnoses Orde r Schedule PSA (Ultrasensitive) Lab Routine Malignant neoplasm of prostate As Needed for 4 Occurrences starting 07/15/2023 until 07/14/2024 CBC (with Diff) Lab Routine Malignant neoplasm of prostate As Needed for 4 Occurrences starting 07/15/2023 until 07/14/2024 Comprehensive metabolic panel (non-fasting) Lab Routine Malignant neoplasm of prostate As Needed for 4 Occurrences starting 07/15/2023 until 07/14/2024 Testosterone, total Lab Routine Malignant neoplasm of prostate As Needed for 4 Occurrences starting 07/15/2023 until 07/14/2024 documented as of this encounter Visit Diagnoses Diagnosis Malignant neoplasm of prostate- Primary documented in this encounter Care Teams Thimble Press Operator Relationship Specialty Start Date End Date Александр, Desire Richard APRN PCP - General Internal Medicine 06/18/22 10/07/23 documented as of this encounter
--- OUTSIDE RECORDS SUMMARY | 2024-01-09 01:24 | XMS_ITS | Encounter Summary ---
Author Organization [facility] Address [facility] [place] [address] Care Team Providers Care Clinical Rehabilitation Aide Name Role Phone Александр, Desiredamari Richard APRN Primary Care Provider +1- [phone] Encounter Details Date Type Department Care Team (Late st Contact Info) Description 10/11/2023 Telephone Dermatology at [facility] [address] [place] [phone] Nieves Castillo MD [facility] [address] KRUPA HERNÁNDEZ[place] [address] Social History Tobacco Use Types Packs/Day Years Used Date Smoking Tobacco: Former Cigars Smokeless Tobacco: Never Alcohol Use Standard Drinks/Week Comments Yes 7 (1 standard drink = 0.6 oz pur e alcohol) Sex and Gender Information Value Date Recorded Sex Assigned at Not on file Gender Identity Not on file Sexual Orientation Not on file documented as of this encounter Miscellaneous Notes * Telephone Encounter - Nieves Castillo MD - 10/11/2023 12:24 PM EDT Patient's called about a yellow dressing with Vaseline tacked into the base of the wound. Should she remove this? Likely Xeroform, which needs to be taken out. I recommend leaving this alone and applying lots of Vaseline on top to assist wound healing, per the instruction sheet. I'll relay to Taisha to verify. Patient agrees with this plan. Nieves Castillo MD documented in this encounter Plan of Treatment Upcoming Encounters Date Type Department Care Team (Late st Contact Info) Description 01/20/2024 9:30 AM EDT Office Visit Hematology/Oncology at [address] [phone] Miguelina Lucia APRN [facility] [address] [place] [address] 02/27/2024 2:15 PM EDT Office Visit Dermatology at [place] [address] [place] [address] Eliel Vanessa MD [address], [place] [address] documented as of this encounter Visit Diagnoses Not on filedocumented in this encounter Care Teams Clinical Rehabilitation Aide Relationship Specialty Start Date End Date Александр, Desire Richard APRN [address] [facility] [address] [place] [address] PCP - General Internal Medicine 10/08/23 documented as of this encounter
--- OUTSIDE RECORDS SUMMARY | 2024-01-09 01:24 | XMS_ITS | Encounter Summary ---
Author Organization [facility] [place] [address] Care Team Providers Care Siebel Crm Developer Name Role Phone Desire Fountain APRN Primary Care Provider +1- [phone] Encounter Details Date Type Department Care Team (Latest Contact Info) Description 01/27/2023 Travel Social History Tobacco Use Types Packs/Day Years Used Date Smoking Tobacco: Former Cigars Smokeless Tobacco: Never Alcohol Use Standard Drinks/Week Comments Yes 7 (1 standard drink = 0.6 oz pur e alcohol) Sex and Gender Information Value Date Recorded Sex Assigned at Not on file Gender Identity Not on file Sexual Orientation Not on file documented as of this encounter Plan of Treatment Upcoming Encounters Date Type Department Care Team (Late st Contact Info) Description 01/20/2024 9:30 AM EDT Office Visit Hematology/Oncology at [address] [phone] Miguelina Lucia APRN [facility] [place] [address] 02/27/2024 2:15 PM EDT Office Visit Dermatology at [address] [place] [phone] Eliel Vanessa MD [address], [place]HAEL [place] [address] documented as of this encounter Visit Diagnoses Not on filedocumented in this encounter Care Teams Siebel Crm Developer Relationship Specialty Start Date End Date Александр, Desire Richard APRN PCP - General Internal Medicine 06/18/22 10/07/23 documented as of this encounter
--- OUTSIDE RECORDS SUMMARY | 2024-01-09 01:24 | XMS_ITS | Encounter Summary ---
Author Organization [facility] Address [facility] [place] [address] Care Team Providers Care Emblem Fuser Tender Name Role Phone Александр, Desire Richard ISRAEL Primary Care Provider +1- [phone] Encounter Details Date Type Department Care Team (Late st Contact Info) Description 10/14/2023 Notes Only Dermatology at [facility] [address] [place] [phone] Nieves Castillo MD [facility] [address] KRUPA HERNÁ[place] [address] Social History Tobacco Use Types Packs/Day Years Used Date Smoking Tobacco: Former Cigars Smokeless Tobacco: Never Alcohol Use Standard Drinks/Week Comments Yes 7 (1 standard drink = 0.6 oz pur e alcohol) Sex and Gender Information Value Date Recorded Sex Assigned at Not on file Gender Identity Not on file Sexual Orientation Not on file documented as of this encounter Progress Notes * Nieves Castillo MD - 10/14/2023 7:54 PM EDT Spoke with Anderson, Xeroform should be taken out. Lauren did remove it slowly and successfully yesterday. No issues with bleeding or healing at this point. Nieves Castillo MD documented in this encounter Plan of Treatment Upcoming Encounters Date Type Department Care Team (Late st Contact Info) Description 01/20/2024 9:30 AM EDT Office Visit Hematology/Oncology at [address] [phone] Miguelina Lucia APRN [facility] [place] [address] 02/27/2024 2:15 PM EDT Office Visit Dermatology at [place] [address] [place] [address] Eliel Vanessa MD [address], [place] [address] documented as of this encounter Visit Diagnoses Not on filedocumented in this encounter Care Teams Emblem Fuser Tender Relationship Specialty Start Date End Date Александр, Desire Richard APRN [address] [place] [address] PCP - General Internal Medicine 10/08/23 documented as of this encounter
--- OUTSIDE RECORDS SUMMARY | 2024-01-09 01:24 | XMS_ITS | Encounter Summary ---
[place] [address] Care Team Providers Care Tube Operator Name Role Phone Desire Founatin APRN Primary Care Provider +1- [phone] Encounter Details Date Type Department Care Team (Late st Contact Info) Description 09/23/2023 Telephone Dermatology at [address] [phone] Yumiko Peck LPN Social History Tobacco Use Types Packs/Day Years [...] encounter Miscellaneous Notes * Telephone Encounter - Yumiko Peck LPN - 09/23/2023 8:22 AM EDT 09/08/23 Left parietal scalp skin shave biopsy Diagnosis: SCCa Dr. Vanessa recommends Mohs [place] at [facility]. Also, schedule a six month follow up appointment to return to clinic for skin check. Reviewed biopsy results, detailed information on Mohs surgery, and follow up appointment reviewed with . Encouraged her to call if she had any other concerns. [facility] will call patient to schedule procedure. Scheduled f/u at 1:45. She voiced understanding. documented in this encounter Plan of Treatment Upcoming Encounters Date Type Department Care Team (Late st Contact Info) Description 01/20/2024 9:30 AM EDT Office Visit Hematology/Oncology at [address] [phone] Miguelina Lucia APRN [facility] [place] [address] 02/27/2024 2:15 PM EDT Office Visit Dermatology at [place] [address] [place] [phone] Eliel Vanessa MD [address], [place] [address] documented as of this encounter Visit Diagnoses Not on filedocumented in this encounter Care Teams Tube Operator Relationship Specialty Start Date End Date Александр, Desire Richard APRN PCP - General Internal Medicine 06/18/22 10/07/23 documented as of this encounter
--- OUTSIDE RECORDS SUMMARY | 2024-01-09 01:24 | XMS_ITS | Encounter Summary ---
Author Organization [facility] [place] [address] Care Team Providers Care Supervisor Evaporator Name Role Phone Desire Fountain APRN Primary Care Provider +1- [phone] Encounter Details Date Type Department Care Team (Latest Contact Info) Description 10/08/2023 Travel Social History Tobacco Use Types Packs/Day [...] 9:30 AM EDT Office Visit Hematology/Oncology at [address] [phone] Miguelina Lucia APRN [facility] [address] 02/27/2024 2:15 PM EDT Office Visit Dermatology at [address] [place] [phone] Eliel Vanessa MD [address], [place] [address] documented as of this encounter Visit Diagnoses Not on filedocumented in this encounter Care Teams Supervisor Evaporator Relationship Specialty Start Date End Date Александр, Desire Richard APRN [address] [place] [address] PCP - General Internal Medicine 10/08/23 documented as of this encounter
--- OUTSIDE RECORDS SUMMARY | 2024-01-09 01:24 | XMS_ITS | Encounter Summary ---
Author Organization [facility] [place] [address] Care Team Providers Care Embossing Unit Operator Name Role Phone Desire Fountain APRN Primary Care Provider +1- [phone] Encounter Details Date Type Department Care Team (Latest Contact Info) Description 12/01/2023 Travel Social History Tobacco Use Types Packs/Day [...] 9:30 AM EDT Office Visit Hematology/Oncology at [address] [phone] Miguelina Lucia APRN [facility] [place] [address] 02/27/2024 2:15 PM EDT Office Visit Dermatology at [address] [place] [phone] Eliel Vanessa MD [address], MICHAEL [place] [address] documented as of this encounter Visit Diagnoses Not on filedocumented in this encounter Care Teams Embossing Unit Operator Relationship Specialty Start Date End Date Александр, Desire Richard APRN [address] [place] [address] PCP - General Internal Medicine 10/08/23 documented as of this encounter
--- OUTSIDE RECORDS SUMMARY | 2024-01-09 01:24 | XMS_ITS | Encounter Summary ---
Author Organization [facility] [place] [address] Care Team Providers Care Window/Distribution Clerk Name Role Phone Desire Fountain APRN Primary Care Provider +1- [phone] Encounter Details Date Type Department Care Team (Late st Contact Info) Description 10/13/2023 2:30 PM EDT Office Visit Hematology/Oncology at [address] [phone] Miguelina Lucia APRN [facility] [place] [address] Malignant neoplasm of prostate Social History Tobacco Use Types Packs/Day Years [...] Sign Reading Time Taken Comments Blood Pressure 130/70 10/13/2023 2:38 PM EDT Pulse 51 10/13/2023 2:38 PM EDT Temperature 36.3 ??C (97.3 ??F) 10/13/2023 2:38 PM ED T Respiratory Rate 16 10/13/2023 2:38 PM EDT Oxygen Saturation 99% 10/13/2023 2:38 PM EDT Inhaled Oxygen Concentration - - Weight 98.9 kg (218 lb) 10/13/2023 2:38 PM EDT Height 185.4 cm (6' 0.99) 10/13/2023 2:38 PM ED T Body Mass Index 28.77 10/13/2023 2:38 PM EDT documented in this encounter Progress Notes * LuciaCitlalily Mark, TRANSPORTATION ASSOCIATE - 10/13/2023 2:30 PM EDT Problem list 1. Prostate cancer Diagnosed in 2006 with a PSA of 4.8. He underwent laparoscopic prostatectomy. He was found of [place]'s 7 with perineural invasion but no extracapsular [...] S/P Bovine Aortic valve replacement Interval history 10/13/23 Marco Antonio returns for followup of his prostate cancer. He continues to feel well.No changes in peripheral neuropathy. He continues to have issues with balance- in part due to neuropathy- he stands and moves slowly so he does not fall. He is s/p aortic valve replacement and follows with Cardiology and has serial echos. He denies any chest pain, shortness of breath or cough. His appetite is about the same. He denies any blood in his urine or stools. No new pain anywhere. 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 Overall stable ROS is otherwise negative. PMH: -Squamous cell carcinoma of skin, follows with Dr. 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 He is here with his today. She wanted to be a nurse all her life but never was able to finish school due to life events. They have 2 grandchildren who are PA-Cs in [place], one is with their great grandchild. Review of Systems As in interval history Physical Exam BP 130/70 (Patient Position: Sitting) Pulse 51 Temp 36.3 ??C (97.3 ??F) (Temporal) Resp 16 Ht 185.4 cm (6' 0.99) Wt 98.9 kg (218 lb) SpO2 99% BMI 28.77 kg/m?? Constitutional: He is oriented to person, place, and time. He appears well- developed and well-nourished. HENT: Head: Normocephalic. Eyes: non-icteric Neck: no lymphadenopathy Cardiovascular: Normal rate and regular rhythm. Pulmonary/Chest: Effort normal and breath sounds normal. CTA Abdominal: Soft. He exhibits no distension and no mass. There is no tenderness. There is no guarding. Lymphadenopathy: He has no cervical, axillary, or supraclavicular adenopathy. Wt Readings from Last 3 Encounters: 10/13/23 98.9 kg (218 lb) 07/15/23 98.9 kg (218 lb) 01/27/23 100.7 kg (222 lb) Pathology: 09/30/2006 Adenocarcinoma of the prostate Michelle pattern 3+4 Labs: 10/07/23 PSA 0.53 WBC 5.46, hemoglobin 14.2, platelet count 143, ANC 3.14, creatinine 0.9, calcium 8.9, TB 0.7, AST 16, ALT 27, alkaline phosphatase 56, total protein 7.0, albumin 3.8. 06/18/2023 PSA 0.61 WBC 5.06, hemoglobin 15, [...] K+-4.1 Ca-9.6 LFTS unremarkable Date PSA Testosterone 10/13/23 0.53 06/18/2023 0.61 01/14/23 0.36 07/16/22 0.35 11/21/21 0.40 05/16/21 0.31 11/07/20 0.20 04/25/20 0.20 10/26/19 0.17 Results for MARIBELL KAUFFMAN SR. ( ) as of 04/27/2019 14:17 Ref. Range 03/20/2017 12:04 09/01/2017 13:22 03/04/2018 12:35 08/18/2018 11:20 03/09/2019 12:11 PSA Total (Ultrasensitive) Latest Ref Range: 0.00 - 4.00 ng/mL 0.12 0.08 0.10 0.08 0.15 Assessment/plan: #Prostate cancer: Initially diagnosed with prostatic adenocarcinoma Michelle 3+4 in 2006, status post prostatectomy and salvage radiation with short term Lupron. PSA in 10/21 was <0.03. 07/15/2023 PSA 0.53, 0.61 last visit and 0.36 prior to that. PSA consistent with biochemical recurrence of his prostate cancer but PSA doubling time around 2 years. Will see him back in 3 to 4 months with blood work. If PSA goes above 1 we will consider restaging him with PSMA PET scan. #Hx of mild thrombocytopenia: PLT 143 today. Continue to monitor Plan: 1. Follow up visit in 3 months with labs prior to visit The plan was discussed with the patient in details. All questions were answered to the patients satisfaction Miguelina Lucia APRN 25 minutes were spent on date of visit, including non-face to face time. documented in this encounter Plan of Treatment Upcoming Encounters Date Type Department Care Team (Late st Contact Info) Description 01/20/2024 9:30 AM EDT Office Visit Hematology/Oncology at [address] [phone] Miguelina Lucia APRN [facility] [place] [address] 02/27/2024 2:15 PM EDT Office Visit Dermatology at [place] [address] [place] [address] Eliel Vanessa MD [address], [place] [address] documented as of this encounter Visit Diagnoses Diagnosis Malignant neoplasm of prostate documented in this encounter Care Teams Window/Distribution Clerk Relationship Specialty Start Date End Date Александр, Desire Richard APRN [address] [facility] [address] [place] [address] PCP - General Internal Medicine 10/08/23 documented as of this encounter
--- OUTSIDE RECORDS SUMMARY | 2024-01-09 01:24 | XMS_ITS | Encounter Summary ---
[place] [address] Care Team Providers Care Central Sterilization Technician Name Role Phone АлександрDesire APRN Primary Care Provider +1- [phone] Reason for Visit * Reason Comments Follow-up Check scalp Encounter Details Date Type Department Care Team (Late st Contact Info) Description 12/01/2023 4:30 PM EDT Office Visit Dermatology at [address] [phone] Eliel Vanessa MD [address] [place] [address], [facility] [place] [address] History of basal cell carcinoma; History of squamous cell carcinoma in situ (SCCIS) of skin; AK (actinic keratosis) Social History Tobacco Use Types Packs/Day Years Used Date Smoking Tobacco: Former Cigars Smokeless Tobacco: Never Alcohol Use Standard Drinks/Week Comments Yes 7 (1 standard drink = 0.6 oz pur e alcohol) Sex and Gender Information Value Date Recorded Sex Assigned at Not on file Gender Identity Not on file Sexual Orientation Not on file documented as of this encounter Progress Notes * Eliel Vanessa MD - 12/01/2023 4:30 PM EDT Problem: 1. 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 Actinic damage parietal scalp status post 3 weeks 5-FU to scalp September 2022 3. Status post Mohs surgery 2 stages for squamous of carcinoma left parietal scalp September 2023 Marco Antonio follows up today with his Lauren. He had a good experience with the Mohs surgery and things are healing very well things and almost totally granulated in. Physical examination is a pleasant 83-year-old gentleman who has excellent granulation and foremosttotal healing of the wound on the left parietal scalp. He has diffuse actinic damage on his scalp which states is somewhat itchy. Examination of the hands and the forearms is otherwise benign. Assessment plan: Actinic keratosis forehead scalp 1. Wait 2 more weeks and then begin again 5 fluorouracil 5% cream apply on a daily basis for 1 weekon 3 weeks off, repeat for total of 3 cycles. Apply to scalp temples and vertex. Patient still has plenty left from his last course of therapy 2. Return to clinic in another 3 months for repeat check. CC: Desire Fountain APRN documented in this encounter Plan of Treatment Upcoming Encounters Date Type Department Care Team (Late st Contact Info) Description 01/20/2024 9:30 AM EDT Office Visit Hematology/Oncology at [address] [phone] Miguelina Lucia APRN [facility] [place] [address] 02/27/2024 2:15 PM EDT Office Visit Dermatology at [address] [place] [address] Eliel Vanessa MD [address] [facility], [place] [address] documented as of this encounter Visit Diagnoses Diagnosis History of basal cell carcinoma Personal history of other malignant neoplasm of skin History of squamous cell carcinoma in situ (SCCIS) of skin AK (actinic keratosis) Actinic keratosis documented in this encounter Care Teams Central Sterilization Technician Relationship Specialty Start Date End Date Desire Fountain APRN [address] [place] [address] PCP - General Internal Medicine 10/08/23 documented as of this encounter
--- OUTSIDE RECORDS SUMMARY | 2024-01-09 01:24 | XMS_ITS | Encounter Summary ---
Author Organization [facility] [place] [address] Care Team Providers Care Wig Dresser Name Role Phone Desire Fountain APRN Primary Care Provider +1- [phone] Encounter Details Date Type Department Care Team (Latest Contact Info) Description 10/13/2023 Travel Social History Tobacco Use Types Packs/Day [...] 9:30 AM EDT Office Visit Hematology/Oncology at [address] [phone] Miguelina Lucia APRN [facility] [place] [address] 02/27/2024 2:15 PM EDT Office Visit Dermatology at [address] [place] [phone] Eliel Vanessa MD [address], [place] [address] documented as of this encounter Visit Diagnoses Not on filedocumented in this encounter Care Teams Wig Dresser Relationship Specialty Start Date End Date Александр, Desire Richard APRN [address] [place] [address] PCP - General Internal Medicine 10/08/23 documented as of this encounter
--- OUTSIDE RECORDS SUMMARY | 2024-01-09 01:24 | XMS_ITS | Clinical Summary ---
Author Organization [facility] Address [facility] [place] [address] Care Team Providers Care Blasting Gang Miner Name Role Phone Desire Fountain APRN Primary Care Provider +1- [phone] Allergies No known active allergies Medications Medication Sig Dispensed Refills Start Date End Date Status Flaxseed Oil 1,000 mg Cap 03/13/2010 Active GLUCOSAMINE HCL/CHONDRO EVANS A (GLUCOSAMINE-CHONDROIT IN ORAL) 03/13/2010 Active MULTI-VITAMIN ORAL Take by mouth daily. 10/04/2010 Active ibuprofen (ADVIL;MOTRIN) 200 mg tablet Take 3 tablets by mouth every 8 hours as needed for Pain. 12/09/2011 Active meTOPROLOL succinate (TOPROL-XL) 25 mg Tablet Sustained Release 24 hr Take 25 mg by mouth daily. Active tamsulosin (FLOMAX) 0.4 mg Capsule, Sust. Release 24 hr Take 0.4 mg by mouth daily as needed. Takes if needed for kidney stones Active rosuvastatin (CRESTOR) 10 mg Tablet Take 10 mg by mouth daily. Active ubiquinone (COENZYME Q10) 10 mg Capsule Take by mouth. Ac tive fluorouraciL (EFUDEX) 5 % Cream Uses once a year 05/26/2020 Active oxybutynin (Ditropan) 5 mg Tablet 05/26/2020 Active lisinopriL (Zestril) 5 mg Tablet Take 5 mg by mouth daily. Active amoxicillin (Amoxil) 500 mg capsule Uses twice a year for dentist 08/12/2022 Active acetaminophen (Tylenol) 500 mg tablet Take 500 mg by mouth every 6 hours as needed for Pain. Active Active Problems Problem Noted Date Diagnosed Date Aortic stenosis 07/03/2011 Overview (02/09/2012): No Spinals allowed per patient Prostate cancer 10/09/2010 ED (erectile dysfunction) 10/09/2010 Encounters Date Type Department Care Team Description 12/01/2023 4:30 PM EDT Office Visit Dermatology at [address] [phone] Eliel Vanessa MD History of basal cell carcinoma; History of squamous cell carcinoma in situ (SCCIS) of skin; AK (actinic keratosis) 12/01/2023 Travel 10/14/2023 Notes Only Dermatology at [facility] [address] [place] [address] Nieves Castillo MD 10/13/2023 2:30 PM EDT Office Visit Hematology/Oncology at [address] [phone] Miguelina Lucia APRN Malignant neoplasm of prostate 10/13/2023 Travel 10/11/2023 Telephone Dermatology at [facility] [address] [place] [address] Nieves Castillo MD from Last 3 Months Family History Medical History Relation Comments Prostate Cancer Brother Ovarian Cancer Maternal Grandfather Ovarian Cancer Maternal Grandmother Breast Cancer Mother Skin Cancer Paternal Aunt Relation Status Comments Brother Alive Maternal Grandfather Maternal Grandmother Alive Mother Paternal Aunt Social History Tobacco Use Types Packs/Day Years Used Date Smoking Tobacco: Former Cigars Smokeless Tobacco: Never Alcohol Use Standard Drinks/Week Comments Yes 7 (1 standard drink = 0.6 oz pur e alcohol) Sex and Gender Information Value Date Recorded Sex Assigned at Not on file Gender Identity Not on file Sexual Orientation Not on file Last Filed Vital Signs Vital Sign Reading [...] Mass Index 28.77 10/13/2023 2:38 PM EDT Plan of Treatment Upcoming Encounters Date Type Department Care Team (Late st Contact Info) Description 01/20/2024 9:30 AM EDT Office Visit Hematology/Oncology at [address] [phone] Miguelina Lucia APRN [facility] [place] [address] 02/27/2024 2:15 PM EDT Office Visit Dermatology at [place] [address] [place] [phone] Eliel Vanessa MD [address], [place] [address] Health Maintenance Due Date Last Done Comments Tdap adult 1960 Tetanus vaccine 1960 Zoster vaccine (1 of 2) 11/10/1991 Pneumoccocal Vaccine: 65+ (1 of 1 - PCV) 2006 Covid-19 Vaccine (1 - 2022-24 season) 2023 Influenza (Flu) vaccine (1 o f 1 - Influenza standard series) 01/11/2024 Medical Devices Implanted Type Area Waxer Device Identifier Shelf Expiration Date Model / Serial / Lot Cable,Sternal ([id number]) - [id number] Implanted:Qty : 1 on 12/05/2011 at [facility] IMPLANTS N/A: Chest [employer] - [id number] 10/09/2016 [id number] / / [id number] Valve,Trifect a,27mm ([id number]) - [id number] Implanted:Qty : 1 on 12/05/2011 at [facility] IMPLANTS N/A: Chest DO NOT USE [employer] - [id number] 03/18/2013 TF-27A / [id number] / Cable,Sternal ,Single ([id number]) - [id number] Implanted:Qty : 1 on 12/05/2011 at [facility] IMPLANTS N/A: Chest [employer] - [id number] 07/09/2016 [facility]-692 / / [id number] Advance Directives Documents on File Type Date Recorded Patient Housing Assistant Property Manager Expl anation Advance Directives and Livin g Will 07/11/2010 8:51 AM * Full Code (Latest Code Status on File) Date Activated Date Inactivated Comments 12/05/2011 12:08 PM 12/09/2011 3:37 PM Question Answer Comments Order Status: Initial Order Does patient have decision m aking capacity? Yes, Order is based on Patients wishes. * Full Code Date Activated Date Inactivated Comments 12/05/2011 6:11 AM 12/05/2011 12:02 PM Question Answer Comments Order Status: Initial Order Does patient have decision m aking capacity? Yes, Order is based on Patients wishes. Care Teams Blasting Gang Miner Relationship Specialty Start Date End Date Александр, Desire Richard APRN [address] [place] [address] PCP - General Internal Medicine 10/08/23
--- OUTSIDE RECORDS SUMMARY | 2024-01-09 01:24 | XMS_ITS | Encounter Summary ---
Author Organization [facility] [place] [address] Care Team Providers Care Fondant Cooker Name Role Phone Desire Fountain APRN Primary Care Provider +1- [phone] Encounter Details Date Type Department Care Team (Late Contact Info) Description 07/10/2023 Telephone Hematology/Oncology at [address] [phone] Shantel Joya Social History Tobacco Use Types Packs/Day Years [...] encounter Miscellaneous Notes * Telephone Encounter - Shantel Joya - 07/10/2023 2:12 PM EST Ayad thought that the labs from 06/16 would be ok for the appt on 07/14, I asked him to go get thelabs done again he will go the morning of the appt at 10am documented in this encounter Plan of Treatment Upcoming Encounters Date Type Department Care Team (Late Contact Info) Description 01/20/2024 9:30 AM EDT Office Visit Hematology/Oncology at [address] [phone] Miguelina Lucia APRN [facility] [place] [address] 02/27/2024 2:15 PM EDT Office Visit Dermatology at [place] [address] [place] [phone] Eliel Vanessa MD [address], MICHAEL [place] [address] documented as of this encounter Visit Diagnoses Not on filedocumented in this encounter Care Teams Fondant Cooker Relationship Specialty Start Date End Date Александр, Desire Richard APRN PCP - General Internal Medicine 06/18/22 10/07/23 documented as of this encounter
--- OUTSIDE RECORDS SUMMARY | 2024-01-09 01:24 | XMS_ITS | Encounter Summary ---
[place] [address] Care Team Providers Care Art Display Maker Name Role Phone Desire Fountain APRN Primary Care Provider +1- [phone] Encounter Details Date Type Department Care Team (Late st Contact Info) Description 10/07/2023 Telephone Dermatology at [address] [phone] Mariely Tejada CMA Social History Tobacco Use Types Packs/Day Years [...] encounter Miscellaneous Notes * Telephone Encounter - Mariely Tejada CMA - 10/07/2023 11:42 AM EDT Mohs consultation and preoperative note (H&P) Patient Name: Ayad Kauffman Sr. Age: 82 y.o. Date of : 1940 Today's Date: 10/07/2023 REFERRING PROVIDER: Eliel Vanessa MD CC: Mohs micrographic surgery for treatment of a cutaneous tumor HPI: Ayad B Daly Sr. is a 82 y.o. 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 The dermatologic preoperative information sheet was reviewed with pertinent positive and negative as below. DERMATOLOGIC PRE-OPERATIVE EVALUATION AND REVIEW OF SYSTEMS History of Mohs surgery? no If yes, have you ever had Mohs surgery with Dr. Pollard? no Pacemaker/Defibrillator? no Joint replacement or other implantable devices (e.g. Cochlear implant)? If yes then when? no Do you take a blood thinner? No History of organ transplant? 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 no Do you have any medical problems that may affect your upcoming surgery? no Do you have any concerns regarding your upcoming surgery? no We ask patients to discontinue Fish oil/Multivitamin/Vit E/?? supplements and natural medicines not prescribed by a physician 1 week prior to surgery. SOCIAL HISTORY: Makes Own Decisions Yes Hearing aid or other devices: Yes, [...] AM EDT Office Visit Hematology/Oncology at [address] [phone] Miguelina Lucia APRN [facility] [place] [address] 02/27/2024 2:15 PM EDT Office Visit Dermatology at [place] [address] [facility] [place] [phone] Eliel Vanessa MD [address], MICHAEL [place] [address] documented as of this encounter Visit Diagnoses Not on filedocumented in this encounter Care Teams Art Display Maker Relationship Specialty Start Date End Date Александр, Desire Richard APRN PCP - General Internal Medicine 06/18/22 10/07/23 documented as of this encounter
--- OUTSIDE RECORDS SUMMARY | 2024-01-09 01:24 | XMS_ITS | Encounter Summary ---
[place] [address] Care Team Providers Care Drum Sprayer Name Role Phone Александр, Desire Richard APRN Primary Care Provider +1- [phone] Reason for Visit * Reason Comments Skin Lesion Encounter Details Date Type Department Care Team (Late st Contact Info) Description 09/08/2023 4:15 PM EDT Office Visit Dermatology at [address] [address] Eliel Vanessa MD [address] [facility] DER[facility] [place], [place] [address] History of basal cell carcinoma; History of squamous cell carcinoma in situ (SCCIS) of skin Social History Tobacco Use Types Packs/Day Years [...] Progress Notes * Eliel Vanessa MD - 09/08/2023 4:15 PM EDT Images from the original note were not included. Problem: 1. 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 Actinic damage parietal scalp status post 3 weeks 5-FU to scalp September 2022 Marco Antonio follows up after last being seen last December. He is seen today on a semiurgent basis. He is concerned about a spot on his scalp and actually sent us a photograph of this morning. He has used some5-FU at home that he had leftover from last spring on several occasions to his scalp without benefit for this lesion. Physical examination reveals a pleasant 82-year-old gentleman here today with his Lauren and her who has a 1.5 cm eroded ulceration on the left parietal scalp concerning for a rodent ulcer BCCA versus SCCA. In the photographed some of the partially removed scab is hanging inferiorly from the ulceration. Assessment plan: Probable SCC versus BCCA left parietal scalp 1. Today shave biopsy obtained from raised anterior margin of lesion 2. Submitted for pathologic analysis 3. I was dressed and wound care reviewed with patient 4. Discussed the probable need for Mohs surgery for the site 5. Contact patient when we have biopsy results and make appropriate referral. CC: Desire Fountian APRN documented in this encounter Plan of Treatment Upcoming Encounters Date Type Department Care Team (Late st Contact Info) Description 01/20/2024 9:30 AM EDT Office Visit Hematology/Oncology at [address] [phone] Mgiuelina Lucia APRN [facility] [place] [address] 02/27/2024 2:15 PM EDT Office Visit Dermatology at [place] [address] [facility] [place] [address] Eliel Vanessa MD [address] [facility], [place] [address] documented as of this encounter Visit Diagnoses Diagnosis History of basal cell carcinoma Personal history of other malignant neoplasm of skin History of squamous cell carcinoma in situ (SCCIS) of skin documented in this encounter Care Teams Drum Sprayer Relationship Specialty Start Date End Date Desire Fountain APRN PCP - General Internal Medicine 06/18/22 10/07/23 documented as of this encounter
--- OUTSIDE RECORDS SUMMARY | 2024-01-09 01:24 | XMS_ITS | Encounter Summary ---
Author Organization [facility] [place] [address] Care Team Providers Care Ager Operator Name Role Phone Desire Fountain APRN Primary Care Provider +1- [phone] Encounter Details Date Type Department Care Team (Latest Contact Info) Description 09/08/2023 Travel Social History Tobacco Use Types Packs/Day [...] 9:30 AM EDT Office Visit Hematology/Oncology at [address] [phone] Miguelina Lucia APRN [facility] [place] [address] 02/27/2024 2:15 PM EDT Office Visit Dermatology at [address] [place] [phone] Eliel Vanessa MD [address] [address] [address], [place] [address] documented as of this encounter Visit Diagnoses Not on filedocumented in this encounter Care Teams Ager Operator Relationship Specialty Start Date End Date Александр, Desire Richard APRN PCP - General Internal Medicine 06/18/22 10/07/23 documented as of this encounter
--- OUTSIDE RECORDS SUMMARY | 2024-01-09 01:24 | XMS_ITS | Encounter Summary ---
Author Organization [facility] [place] [address] Care Team Providers Care Adult Manager Name Role Phone Desire Fountain APRN Primary Care Provider +1- [phone] Encounter Details Date Type Department Care Team (Latest Contact Info) Description 07/15/2023 Travel Social History Tobacco Use Types Packs/Day [...] AM EDT Office Visit Hematology/Oncology at [address] [phone] Miguelina Lucia APRN [facility] [place] [address] 02/27/2024 2:15 PM EDT Office Visit Dermatology at [address] [place] [phone] Eliel Vanessa MD [address], [place]HAEL [place] [address] documented as of this encounter Visit Diagnoses Not on filedocumented in this encounter Care Teams Adult Manager Relationship Specialty Start Date End Date Александр, Desire Richard APRN PCP - General Internal Medicine 06/18/22 10/07/23 documented as of this encounter
--- OUTSIDE RECORDS SUMMARY | 2024-01-09 01:24 | XMS_ITS | Encounter Summary ---
[place] [address] Care Team Providers Care Licensed Therapist Name Role Phone Александр, Desire Richard APRN Primary Care Provider [phone]- [phone] Encounter Details Date Type Department Care Team (Latest Contact Info) Description 09/08/2023 10:14 PM EDT - 09/08/2023 11:59 PM EDT Hospital [place] [address] Discharge Disposition: Home Social History Tobacco Use Types Packs/Day Years Used Date Smoking Tobacco: Former Cigars Smokeless Tobacco: Never Alcohol Use Standard Drinks/Week Comments Yes 7 (1 standard drink = 0.6 oz pur e alcohol) Sex and Gender Information Value Date Recorded Sex Assigned at Not on file Gender Identity Not on file Sexual Orientation Not on file documented as of this encounter Medications at Time of Discharge Medication Sig Dispensed Refills Start Date End Date amoxicillin (Amoxil) 500 mg capsule Uses twice a year for dentist 08/12/2022 lisinopriL (Zestril) 5 mg Tablet Take 5 mg by mouth daily. fluorouraciL (EFUDEX) 5 % Cream Uses once a year 05/26/2020 oxybutynin (Ditropan) 5 mg Tablet 05/26/2020 rosuvastatin (CRESTOR) 10 mg Tablet Take 10 mg by mouth daily. ubiquinone (COENZYME Q10) 10 mg Capsule Take by mouth. tamsulosin (FLOMAX) 0.4 mg Capsule, Sust. Release 24 hr Take 0.4 mg by mouth daily as needed. Takes if needed for kidney stones meTOPROLOL succinate (TOPROL-XL) 25 mg Tablet Sustained Release 24 hr Take 25 mg by mouth daily. ibuprofen (ADVIL;MOTRIN) 200 mg tablet Take 3 tablets by mouth every 8 hours as needed for Pain. 12/09/2011 MULTI-VITAMIN ORAL Take by mouth daily. 10/04/2010 Flaxseed Oil 1,000 mg Cap 03/13/2010 GLUCOSAMINE HCL/CHONDRO EVANS A (GLUCOSAMINE-CHONDROITIN ORAL) 03/13/2010 documented as of this encounter Plan of Treatment Upcoming Encounters Date Type Department Care Team (Late st Contact Info) Description 01/20/2024 9:30 AM EDT Office Visit Hematology/Oncology at [address] [phone] Miguelina Lucia APRN [facility] [place] [address] 02/27/2024 2:15 PM EDT Office Visit Dermatology at [place] [address] [place] [phone] Eliel Vanessa MD [address], [place] [address] documented as of this encounter Procedures Procedure Name Priority Date/Time Associated Diagnosis Comments SURGICAL PATHOLOGY REPORT Routine 09/08/2023 4:45 PM EDT documented in this encounter Results * (ABNORMAL) Surgical Pathology Report (09/08/2023 4:45 PM EDT) Final Diagnosis [id number] ? Location: [facility] The signing pathologist has (i) examined the relevant preparation(s) for the specimen(s) and (ii) rendered or confirmed the diagnosis(es). . ?Surgical Pathology DIAGNOSIS Left parietal scalp, skin shave biopsy: - ??Invasive squamous cell carcinoma, ??moderately to poorly differentiated, present at the peripheral and deep specimen edges Electronically signed by: ?Hunter BENITEZ, PhD, Komal Verified: ??09/22/2023 16:24 ??Dermatopathologist Performed at: ??-[facility] Dept. of Pathology, [place] [address] Account Clerk: Elan Godinez MD, FCAP, ??CLIA Certificate: [id number] DISCUSSION THIS RESULT REQUIRES PHYSICIAN/A.P.P. FOLLOW UP ADDITIONAL STUDIES Immunohistochemistry Studies: Formalin-fixed, paraffin-embedded tissue sections are studied using the polymer technique with appropriate positive and negative controls. ?These IHC studies provide the pathologist with adjunctive diagnostic information. Antibody specificity has been verified by testing antibodies on a series of in-house tissues with known immunohistochemical performance characteristics. The clinical interpretation of any antibody positive staining or its absence is evaluated within the context of clinical presentation, morphology, histopathological criteria and other diagnostic tests. Block ? Antibody ? Result (Positive/Negative) A1 ? Sox10 ? Tumor cells are negative A1 ? CK5 ? Tumor cells are positive SPECIMEN(S) SUBMITTED A - L parietal scalp, Shave Referring Identifier: ?(not provided) CLINICAL INFORMATION Gradually enlarging crusting scabbing area. ??Shave BX for Dx only. ??BCCA/SCCA SPECIMEN PROCESSING A - Labeled/Fixative: Patient demographics, formalin. Quantity/Size: ??Single, 1.0 x 0.2 x 0.1 cm. Tissue Description: Shave of a gore-solis skin papule. Sections/Processing: Inked, trisected and entirely submitted in 1 cassette labeled A1. ??vani(Mark) 09/22/2023 4:24 PM EDT [facility] SPECIMEN FROM SKIN / Unknown 09/08/2023 4:45 PM EDT 09/08/2023 4:45 PM EDT Eliel Vanessa MD PATHOLOGY/CYTOLOGY O SURYA [facility] [place] [id number] documented in this encounter Visit Diagnoses Not on filedocumented in this encounter Care Teams Licensed Therapist Relationship Specialty Start Date End Date Александр, Desire Richard APRN PCP - General Internal Medicine 06/18/22 10/07/23 documented as of this encounter
--- OUTSIDE RECORDS SUMMARY | 2024-01-09 01:25 | XMS_ITS | Encounter Summary ---
Author Organization [facility] [place] [address] Care Team Providers Care Pin Feather Machine Operator Name Role Phone Александр, Desire Richard APRN Primary Care Provider [phone]- [phone] Encounter Details Date Type Department Care Team (Late st Contact Info) Description 07/16/2022 2:30 PM EST Office Visit Hematology/Oncology at [address] [address] Ankur Doss MD [facility] [address] [place] [address] Kiera Zuluaga, RN Malignant neoplasm of prostate Social History Tobacco [...] Sign Reading Time Taken Comments Blood Pressure 141/60 07/16/2022 2:32 PM EST Pulse 63 07/16/2022 2:32 PM EST Temperature 35.9 ??C (96.6 ??F) 07/16/2022 2:32 PM ES T Respiratory Rate 18 07/16/2022 2:32 PM EST Oxygen Saturation 100% 07/16/2022 2:32 PM EST Inhaled Oxygen Concentration - - Weight 100.9 kg (222 lb 6.4 oz) 07/16/2022 2:32 PM EST Height 185.4 cm (6' 0.99) 07/16/2022 2:32 PM ES T Body Mass Index 29.35 07/16/2022 2:32 PM EST documented in this encounter Progress Notes * Kiera Zuluaga Jerome, CHEMIST STEROIDS - 07/16/2022 2:30 PM EST Problem list 1. Prostate cancer Diagnosed [...] S/P Bovine Aortic valve replacement Interval history (07/16/22)- Marco Antonio returns for routine followup of his prostate cancer. Last seen on 11/27/21. He continues to feel well. He has not had any new illnesses or hospitalizations. His budget specialist follows him on a regular basis. He is currently getting physical therapy for strengthening. Denies any falls but he states his balance has been off a little. He denies any new pain. He has had some weight loss that is intentional. No cough, shortness of breath, chest pain or edema. He denies any new urinary or bowel issues. Overall stable. ROS is otherwise negative. PMH: No interval changes since last visit Social and family history: No interval changes since last visit Review of Systems Constitution: Negative. HENT: Negative. Eyes: Negative. Cardiovascular: Negative. No swelling. Respiratory: Negative. Skin: Actinic keratoses bothersome on top of scalp- sees Derm Musculoskeletal: Negative. Arthralgias- uses CBD oil. Gastrointestinal: Negative. Positive for intermittent diarrhea/cramping Genitourinary: Positive for frequency, nocturia and urgency. Does note ED since prostatectomy in 2006. Recurrent kidney stones. Neurological: Negative. Psychiatric/Behavioral: Negative. Physical Exam BP 141/60 (Patient Position: Sitting) Pulse 63 Temp 35.9 ??C (96.6 ??F) (Temporal) Resp 18 Ht 185.4 cm (6' 0.99) Wt 100.9 kg (222 lb 6.4 oz) SpO2 100% BMI 29.35 kg/m?? Constitutional: He is oriented to person, [...] normal. Wt Readings from Last 3 Encounters: 07/16/22 100.9 kg (222 lb 6.4 oz) 11/27/21 102.5 kg (226 lb) 05/16/21 110.1 kg (242 lb 12.8 oz) Pathology: 09/30/2006 Adenocarcinoma of the prostate Michelle pattern 3+4 Labs: Latest Reference Range & Units 05/30/22 10:11 WBC 4.0 - 9.5 x10(3)/mcL 6.8 RBC 4.58 - 5.54 x10(6)/mcL 4.50 (L) Hemoglobin 13.7 - 16.5 g/dL 14.8 Hematocrit 40.5 - 48.5 % 42.9 MCV 82.9 - 93.1 fL 95.3 (H) MCH 27.5 - 32.1 pg 32.9 (H) MCHC 32.0 - 35.7 g/dL 34.5 RDWSD 36.0 - 45.0 fL 44.0 RDWCV 11.4 - 13.8 % 12.6 Platelets 145 - 357 x10(3)/mcL 142 (L) MPV 7.6 - 12.9 fL 10.2 nRBC % Auto % 0.0 nRBC Abs Auto 0.000 - 0.000 x10(3)/mcL 0.000 Neutr Abs (ANC) 1.70 - 6.10 x10(3)/mcL 4.69 Neutrophils % % 68.7 Immature Gran % % 0.30 Lymphocytes % % 18.4 Monocytes % % 8.6 Eosinophils % % 3.1 Basophils % % 0.9 Carolann Gran Abs 0.00 - 0.04 x10(3)/mcL 0.02 Lymphocytes Abs 0.9 - 3.2 x10(3)/mcL 1.3 Monocyte Abs 0.3 - 0.9 x10(3)/mcL 0.6 Eosinophils Abs 0.0 - 0.4 x10(3)/mcL 0.2 Basophils Abs 0.0 - 0.1 x10(3)/mcL 0.1 Sodium 135 - 145 mmol/L 141 Potassium 3.5 - 5.0 mmol/L 4.3 Chloride 98 - 107 mmol/L 105 CO2 22 - 31 mmol/L 27 Anion Gap 5 - 15 mmol/L 9 BUN 10 - 20 mg/dL 19 Creatinine 0.80 - 1.50 mg/dL 0.82 Estimated GFR >=60 mL/min/1.73 m?? 89 Calcium 8.5 - 10.5 mg/dL 9.8 Glucose Lvl 65 - 199 mg/dL 103 Total Protein 6.1 - 8.0 g/dL 7.1 Albumin 3.2 - 5.2 g/dL 4.6 Total Bilirubin 0.2 - 1.3 mg/dL 0.6 Alk Phos 40 - 130 unit/L 65 AST 0 - 39 unit/L 16 ALT 0 - 55 unit/L 18 PSA Total (Ultrasensitive) 0.00 - 4.00 ng/mL 0.35 (L): Data is abnormally low (H): Data is abnormally high 11/07/20- WBC-6.4 Hgb/Hct-15.8/44.5 Plt-150 ANC-4.16 Na-141 K+-4.3 BUN/cr-19/0.91 Ca-9.5 Glucose-108 Albumin-4.6 T. Bili-0.7 Alk phos-72 AST-23 ALT-23 04/25/20- WBC-6.9 Hgb/Hct-15.6/45.5 Plt-167 ANC-4.36 Na-140 K+-3.8 BUN/Cr-18/0.99 Ca-9.1 Glucose-95 Albumin-4.6 T. Bili-0.5 Alk phos- 73 AST-23 ALT-23 10/26/19- WBC-6.3 Hgb/Hct-15.3/44.6 Plt-191 ANC-3.77 BUN-22 Cr-0.84 K+-4.1 Ca-9.6 LFTS unremarkable Date PSA Testosterone 07/16/22 0.35 11/21/21 0.40 05/16/21 0.31 11/07/20 0.20 04/25/20 0.20 10/26/19 0.17 Results for MARIBELL KAUFFMAN SR. ( ) as of 04/27/2019 14:17 Ref. 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 PSA in 10/21 was <0.03. Mr Kauffman's PSA has been slowly increasing. He denies any urinary issues. He denies any other pain or symptoms. He would like to keep monitoring his PSA every six months. If it doubles within a six month period we may consider scans. Plan: 1. CBC,CMP, PSA 2. Follow up visit in 6 months with labs The plan was discussed with the patient in details. All questions were answered to the patients satisfaction documented in this encounter Plan of Treatment Upcoming Encounters Date Type Department Care Team (Late st Contact Info) Description 01/20/2024 9:30 AM EDT Office Visit Hematology/Oncology at [address] [phone] Miguelina Lucia APRN [facility] [place] [address] 02/27/2024 2:15 PM EDT Office Visit Dermatology at [place] [address] [place] [phone] Eliel Vanessa MD [address], MICHAEL [place] [address] documented as of this encounter Visit Diagnoses Diagnosis Malignant neoplasm of prostate documented in this encounter Care Teams Pin Feather Machine Operator Relationship Specialty Start Date End Date Александр, Desire Richard APRN PCP - General Internal Medicine 06/18/22 10/07/23 documented as of this encounter
--- OUTSIDE RECORDS SUMMARY | 2024-01-09 01:25 | XMS_ITS | Encounter Summary ---
Author Organization [facility] [place] [address] Care Team Providers Care Soils Technician Name Role Phone Desire Fountain APRN Primary Care Provider +1- [phone] Encounter Details Date Type Department Care Team (Late st Contact Info) Description 01/27/2023 2:00 PM EDT Office Visit Hematology/Oncology at [address] [address] Nisha Marlow [facility] [place] [address] Prostate cancer Social History Tobacco Use Types Packs/Day Years [...] Sign Reading Time Taken Comments Blood Pressure 154/75 01/27/2023 2:19 PM EDT Pulse 61 01/27/2023 2:19 PM EDT Temperature 36.2 ??C (97.1 ??F) 01/27/2023 2:19 PM ED T Respiratory Rate 16 01/27/2023 2:19 PM EDT Oxygen Saturation 97% 01/27/2023 2:19 PM EDT Inhaled Oxygen Concentration - - Weight 100.7 kg (222 lb) 01/27/2023 2:19 PM EDT Height 185.4 cm (6' 0.99) 01/27/2023 2:19 PM ED T Body Mass Index 29.3 01/27/2023 2:19 PM EDT documented in this encounter Patient Instructions * Patient Instructions* Nisha Marlow APRN - 01/27/2023 2:00 PM EDT He will return in 6 months with labs prior documented in this encounter Progress Notes * Nisha Marlow APRN - 01/27/2023 2:00 PM EDT Problem list 1. Prostate cancer Diagnosed in 2006 with a PSA of 4.8. He underwent laparoscopic prostatectomy. He was found of [place]'s 7 with perineural invasion but no extracapsular [...] prostate cancer. He continues to feel well. He has not had any new illnesses or hospitalizations. He continues to follow with his animal rehabilitator. He continues to have issues with balance- in part due to neuropathy- he stands and moves slowly sohe does not fall. He denies any chest pain, shortness of breath or cough. His appetite is about thesame. He denies any blood in his urine or stools. Overall stable ROS is otherwise negative. Interval history (07/16/22)- Marco Antonio returns for routine followup of his prostate cancer. Last seen on 11/27/21. He continues to feel well. He has not had any new illnesses or hospitalizations. His animal rehabilitator follows him on a regular basis. He [...] Neurological: Negative. Psychiatric/Behavioral: Negative. Physical Exam BP 154/75 (Patient Position: Sitting) Pulse 61 Temp 36.2 ??C (97.1 ??F) (Temporal) Resp 16 Ht 185.4 cm (6' 0.99) Wt 100.7 kg (222 lb) SpO2 97% BMI 29.30 kg/m?? Constitutional: He is oriented to person, [...] normal. Wt Readings from Last 3 Encounters: 01/27/23 100.7 kg (222 lb) 07/16/22 100.9 kg (222 lb 6.4 oz) 11/27/21 102.5 kg (226 lb) Pathology: 09/30/2006 Adenocarcinoma of the prostate Michelle pattern 3+4 Labs: Latest Reference Range & Units 01/14/23 13:19 WBC 4.0 - 9.5 x10(3)/mcL 6.2 RBC 4.58 - 5.54 x10(6)/mcL 4.36 (L) Hemoglobin 13.7 - 16.5 g/dL 14.6 Hematocrit 40.5 - 48.5 % 41.5 MCV 82.9 - 93.1 fL 95.2 (H) MCH 27.5 - 32.1 pg 33.5 (H) MCHC 32.0 - 35.7 g/dL 35.2 RDWSD 36.0 - 45.0 fL 44.0 RDWCV 11.4 - 13.8 % 12.7 Platelets 145 - 357 x10(3)/mcL 131 (L) MPV 7.6 - 12.9 fL 10.1 nRBC % Auto % 0.0 nRBC Abs Auto 0.000 - 0.000 x10(3)/mcL 0.000 Neutr Abs (ANC) 1.70 - 6.10 x10(3)/mcL 3.83 Neutrophils % % 62.1 Immature Gran % % 0.20 Lymphocytes % % 25.3 Monocytes % % 8.4 Eosinophils % % 3.2 Basophils % % 0.8 Carolann Gran Abs 0.00 - 0.04 x10(3)/mcL 0.01 Lymphocytes Abs 0.9 - 3.2 x10(3)/mcL 1.6 Monocyte Abs 0.3 - 0.9 x10(3)/mcL 0.5 Eosinophils Abs 0.0 - 0.4 x10(3)/mcL 0.2 Basophils Abs 0.0 - 0.1 x10(3)/mcL 0.0 Sodium 135 - 145 mmol/L 141 Potassium 3.5 - 5.0 mmol/L 4.1 Chloride 98 - 107 mmol/L 104 CO2 22 - 31 mmol/L 26 Anion Gap 5 - 15 mmol/L 11 BUN 10 - 20 mg/dL 19 Creatinine 0.80 - 1.50 mg/dL 0.74 (L) Estimated GFR >=60 mL/min/1.73 m?? 91 Calcium 8.5 - 10.5 mg/dL 9.3 Glucose Lvl 65 - 199 mg/dL 100 Total Protein 6.1 - 8.0 g/dL 6.9 Albumin 3.2 - 5.2 g/dL 4.4 Total Bilirubin 0.2 - 1.3 mg/dL 0.8 Alk Phos 40 - 130 unit/L 64 AST 0 - 39 unit/L 12 ALT 0 - 55 unit/L 15 PSA Total (Ultrasensitive) 0.00 - 4.00 ng/mL 0.36 (L): Data is abnormally low (H): Data is abnormally high 11/07/20- WBC-6.4 Hgb/Hct-15.8/44.5 Plt-150 ANC-4.16 Na-141 K+-4.3 BUN/cr-19/0.91 Ca-9.5 Glucose-108 Albumin-4.6 T. Bili-0.7 Alk phos-72 AST-23 ALT-23 04/25/20- WBC-6.9 Hgb/Hct-15.6/45.5 Plt-167 ANC-4.36 Na-140 K+-3.8 BUN/Cr-18/0.99 Ca-9.1 Glucose-95 Albumin-4.6 T. Bili-0.5 Alk phos- 73 AST-23 ALT-23 10/26/19- WBC-6.3 Hgb/Hct-15.3/44.6 Plt-191 ANC-3.77 BUN-22 Cr-0.84 K+-4.1 Ca-9.6 LFTS unremarkable Date PSA Testosterone 01/14/23 0.36 07/16/22 0.35 11/21/21 0.40 05/16/21 0.31 11/07/20 0.20 04/25/20 0.20 10/26/19 0.17 Results for MARIBELL KAUFFMAN Padmaja VARNER ( ) as of 04/27/2019 14:17 Ref. [...] just continue to monitor at this point. Plan: 1. CBC,CMP, PSA 2. Follow up visit in 6 months with labs The plan was discussed with the patient in details. All questions were answered to the patients satisfaction documented in this encounter Plan of Treatment Upcoming Encounters Date Type Department Care Team (Late st Contact Info) Description 01/20/2024 9:30 AM EDT Office Visit Hematology/Oncology at [address] [phone] Miguelina Lucia APRN [facility] [place] [address] 02/27/2024 2:15 PM EDT Office Visit Dermatology at [place] [address] [place] [address] Eliel Vanessa MD [address], MICHAEL [place] [address] documented as of this encounter Visit Diagnoses Diagnosis Prostate cancer Malignant neoplasm of prostate documented in this encounter Care Teams Soils Technician Relationship Specialty Start Date End Date Александр, Desire Richard APRN PCP - General Internal Medicine 06/18/22 10/07/23 documented as of this encounter
--- OUTSIDE RECORDS SUMMARY | 2024-01-09 01:25 | XMS_ITS | Encounter Summary ---
Author Organization [facility] [place] [address] Care Team Providers Care Elephant Keeper Name Role Phone Dseire Fountain APRN Primary Care Provider [phone] Encounter Details Date Type Department Care Team (Late Contact Info) Description 10/18/2022 Orders Only Hematology [place] [address] Nisha Marlow [facility] [place] [address] Malignant neoplasm of prostate Social History Tobacco [...] 9:30 AM EDT Office Visit Hematology/Oncology at [address] [phone] Miguelina Lucia APRN [facility] [place] [place] [address] 02/27/2024 2:15 PM EDT Office Visit Dermatology at [place] [address] [place] [address] Eliel Vanessa MD [address], MICHAEL [place] [address] documented as of this encounter Visit Diagnoses Diagnosis Malignant neoplasm of prostate documented in this encounter Care Teams Elephant Keeper Relationship Specialty Start Date End Date Александр, Desire Richard APRN PCP - General Internal Medicine 06/18/22 10/07/23 documented as of this encounter
--- OUTSIDE RECORDS SUMMARY | 2024-01-09 01:25 | XMS_ITS | Encounter Summary ---
Author Organization [facility] Address [facility] [place] [address] Care Team Providers Care Jewel Setter Name Role Phone Michael Franco MD Primary Care Provider [phone] Encounter Details Date Type Department Care Team (Late st Contact Info) Description 2019 11:00 AM EDT Office Visit Hematology/Oncology at [address] [phone] Ankur Doss MD [facility] [address] [place] [address] Kiera Zuluaga, RN Malignant neoplasm [...] Sign Reading Time Taken Comments Blood Pressure 159/83 2019 11:07 AM EDT Pulse 55 2019 11:07 AM EDT Temperature 37 ??C (98.6 ??F) 2019 11:07 AM EDT Respiratory Rate 20 2019 11:07 AM EDT Oxygen Saturation 98% 2019 11:07 AM EDT Inhaled Oxygen Concentration - - Weight 114.8 kg (253 lb) 2019 11:07 AM EDT Height 185.7 cm (6' 1.11) 2019 11:07 AM E DT Body Mass Index 33.28 2019 11:07 AM EDT documented in this encounter Progress Notes * Kiera Zuluaga, CLOTH PRINTING INSPECTOR - 2019 11:00 AM EDT Problem list 1. Prostate cancer Diagnosed [...] He completed radiation therapy July 03, 2011. He has been following with serial PSAs since. 2. Aortic stenosis S/P Bovine Aortic valve replacement Interval history: Maribell returns to the [facility] today for follow-up of his prostate cancer. His Lauren is on the phone during the visit. He is feeling well. Denies any new pain. No new illnesses,hospitalizations or medication changes. He has been having trouble with kidney stones and is going to see Dr. Carias. No chest pain,shortness of breath or edema. PMH: No interval changes since last visit Social and family history: No interval changes since last visit Review of Systems Constitution: Negative. HENT: Negative. Eyes: Negative. Cardiovascular: Negative. Respiratory: Negative. Skin: Actinic keratoses bothersome on top of scalp- sees Derm Musculoskeletal: Negative. Arthralgias- uses CBD oil. Gastrointestinal: Negative. Genitourinary: Positive for frequency, nocturia and urgency. Does note ED since prostatectomy in 2006. Recurrent kidney stones. Neurological: Negative. Psychiatric/Behavioral: Negative. Physical Exam Constitutional: He is oriented to person, place, [...] mood and affect. His behavior is normal. Pathology: 09/30/2006 Adenocarcinoma of the prostate Michelle pattern 3+4 Labs: 10/26/19- WBC-6.3 Hgb/Hct-15.3/44.6 Plt-191 ANC-3.77 BUN-22 Cr-0.84 K+-4.1 Ca-9.6 LFTS unremarkable Date PSA Testosterone 10/26/19 0.17 Results for MARIBELL KAUFFMAN SR. ( ) as of 04/27/2019 14:17 Ref. Range 03/20/2017 12:04 09/01/2017 13:22 03/04/2018 12:35 08/18/2018 11:20 03/09/2019 12:11 PSA Total (Ultrasensitive) Latest Ref Range: 0.00 - 4.00 ng/mL 0.12 0.08 0.10 0.08 0.15 Assessment/plan: #Prostate cancer: Initially diagnosed with prostatic adenocarcinoma [place] 3+4 in 2006, status post prostatectomy and salvage radiation with short term Lupron. PSA is 0.17- stable. Maribell is doing exceptionally well more than 10yrs out. PSA remains stable and low. He remains active and feels well. Plan: 1. CBC,CMP, PSA 2. Follow up visit in 6 months with labs The plan was discussed with the patient in details. All questions were answered to the patients satisfaction documented in this encounter Plan of Treatment Upcoming Encounters Date Type Department Care Team (Late st Contact Info) Description 01/20/2024 9:30 AM EDT Office Visit Hematology/Oncology at [address] [phone] Miguelina Lucia APRN [facility] [place] [address] 02/27/2024 2:15 PM EDT Office Visit Dermatology at [place] [address] [place] [phone] Eliel Vanessa MD [address], [place] [address] documented as of this encounter Visit Diagnoses Diagnosis Malignant neoplasm of prostate documented in this encounter Care Teams Jewel Setter Relationship Specialty Start Date End Date Michael Franco MD [address] [facility] [[email or web address] [address] [place] [address] PCP - General 04/03/10 05/15/21 documented as of this encounter
--- OUTSIDE RECORDS SUMMARY | 2024-01-09 01:25 | XMS_ITS | Encounter Summary ---
Author Organization Formerly [facility] [place] [address] Care Team Providers Care Foot Roentgenologist Name Role Phone AntoinetteDilciamonty Cano APRN Primary Care Provider [phone] Encounter Details Date Type Department Care Team (Late Contact Info) Description 06/11/2022 Telephone Hematology/Oncology at [address] [phone] Brit Butts Social History Tobacco Use Types Packs/Day Years [...] encounter Miscellaneous Notes * Telephone Encounter - Brit Butts - 06/11/2022 9:16 AM EST I LEFT A VOICEMAIL CONFIRMING THE CHANGE OF THE APPT FROM 06/25 TO 07/16 AT 2:30 documented in this encounter Plan of Treatment Upcoming Encounters Date Type Department Care Team (Late Contact Info) Description 01/20/2024 9:30 AM EDT Office Visit Hematology/Oncology at [address] [phone] [facility] [place] [address] 02/27/2024 2:15 PM EDT Office Visit Dermatology at [place] [address] [place] [address] Eliel Vanessa MD [address], [place] [address] documented as of this encounter Visit Diagnoses Not on filedocumented in this encounter Care Teams Foot Roentgenologist Relationship Specialty Start Date End Date Vicky Curry APRN [address] [place] [address] PCP - General Family Medicine 05/16/21 06/17/22 documented as of this encounter
--- OUTSIDE RECORDS SUMMARY | 2024-01-09 01:25 | XMS_ITS | Encounter Summary ---
[place] [address] Care Team Providers Care Auto Technician Name Role Phone Michael Franco MD Primary Care Provider [phone] Encounter Details Date Type Department Care Team (Latest Contact Info) Description 04/25/2020 1:20 PM EST Laboratory Appointment Lab [address] [place] [address] Malignant neoplasm of prostate Social History Tobacco [...] 9:30 AM EDT Office Visit Hematology/Oncology at [address] [phone] Miguelina Lucia APRN [facility] [place] [address] 02/27/2024 2:15 PM EDT Office Visit Dermatology at [address] [place] [phone] Eliel Vanessa MD [address], [place] [address] documented as of this encounter Procedures Procedure Name Priority Date/Time Associated Diagnosis Comments HEMOGRAM STAT 04/25/2020 1:28 PM EST Malignant neoplasm of prostate DIFFERENTIAL, AUTOMATED STAT 04/25/2020 1:28 PM EST Malignant neoplasm of prostate HC CBC,PLT & AUTO DIFF STAT 0 1:28 PM EST Malignant neoplasm of prostate HC PROSTATE SPECIFIC ANTIGEN STAT 04/25/2020 1:28 PM EST Malignant neoplasm of prostate COMPREHENSIVE METABOLIC PANEL STAT 04/25/2020 1:28 PM EST Malignant neoplasm of prostate documented in this encounter Results * Differential, Automated (04/25/2020 1:28 PM EST) Neutrophil % 63.6 % [facility] Neutrophil Absolute 4.36 1.70 - 6.10 x10(3)/[facility] Lymph % 23.3 % [facility] Lymphocytes Abs 1.6 0.9 - 3.2 x10(3)/[facility] Monocyte % 9.0 % [facility] Monocyte Abs 0.6 0.3 - 0.9 x10(3)/[facility] Eos % 2.9 % [facility] Eosinophils Abs 0.2 0.0 - 0.4 x10(3)/[facility] Basophil % 0.9 % [facility] Baso Absolute 0.1 0.0 - 0.1 x10(3)/[facility] Immature Gran % 0.30 % [facility] Comment: Immature granulocytes(IG's)percentage and absolute count will include metamyelocytes, myelocytes, and promyelocytes. Blood smears from CBCs yielding IG's will be scanned manually for concordance. If this scan disagrees with the automated IG or if promyelocytes are noted, a manual differential will be performed. Immature Gran Absolute 0.02 0.00 - 0.04 x10(3)/[facility] Blood specimen (specimen) 04/25/2020 1:28 PM EST 04/25/2020 1:32 PM EST Narrative Resulting Agency Comment Spec In Lab Ankur Doss MD HEMATOLOGY ORDERABLE S [facility] [place] [address] * (ABNORMAL) Hemogram (04/25/2020 1:28 PM EST) White Blood Cell 6.9 4.0 - 9.5 x10(3)/[facility] Red Blood Cell 4.68 4.58 - 5.54 x10(6)/[facility] Hemoglobin 15.6 13.7 - 16.5 gm/dL [facility] Hematocrit 45.5 40.5 - 48.5 % [facility] Mean Cell Volume 97.2(H) 82.9 - 93.1 [facility] Mean Cell Hemoglobin 33.3(H) 27.5 - 32.1 pg [facility] Mean Cell Hemoglobin Concentration 34.3 32.0 - 35.7 gm/dL [facility] Platelet 167 145 - 357 x10(3)/[facility] RDW Standard Deviation 45.6(H) 36.0 - 45.0 [facility] RDW coefficient of variation 12.8 11.4 - 13.8 % [facility] Mean Platelet Volume 10.1 7.6 - 12.9 [facility] NRBC% auto 0.0 % [facility] NRBC Absolute 0.000 0.000 - 0.000 x10(3)/[facility] Blood specimen (specimen) 04/25/2020 1:28 PM EST 04/25/2020 1:32 PM EST Narrative Resulting Agency Comment Spec In Lab Ankur Doss MD HEMATOLOGY ORDERABLE S [facility] [place] [address] * Comprehensive metabolic panel (non-fasting) (04/25/2020 1:28 PM EST) Glucose 95 65 - 199 mg/dL [facility] Comment:Diabetes: >=200 mg/d L plus symptoms Blood Urea Nitrogen 18 10 - 20 mg/dL [facility] Creatinine 0.99 0.80 - 1.50 mg/dL [facility] Sodium 140 135 - 145 mmol/L [facility] Potassium 3.8 3.5 - 5.0 mmol/L [facility] Comment: Please note: ??Patients with WBC >100,000 may have falsely elevated Potassium levels. ??For accurate Potassium quantification in these patients send serum separator tube (gold top) for subsequent determinations. ??Contact the Clinical Chemistry Laboratory if there are any questions. Chloride 103 98 - 107 mmol/L [facility] Carbon Dioxide 27 22 - 31 mmol/L [facility] Anion Gap 10 5 - 15 mmol/L [facility] Calcium 9.1 8.5 - 10.5 mg/dL [facility] Protein, Total 7.4 6.1 - 8.0 gm/dL [facility] Albumin 4.6 3.2 - 5.2 gm/dL [facility] Aspartate Aminotransferase 23 0 - 39 unit/L [facility] Alanine Aminotransferase 23 0 - 55 unit/L [facility] Alkaline Phosphatase 73 40 - 130 unit/L [facility] Bilirubin, Total 0.5 0.2 - 1.3 mg/dL [facility] Est Glomerular Filtration Rate 73 >=60 mL/min/1. 73 m?? [facility] Comment: This patient? s estimated glomerular filtration rate (eGFR) is between 73 mL/min/1.73 m2 (patients with less muscle mass per kg body weight) and 84 mL/min/1.73 m2 (patients with more muscle mass per kg body weight) as determined by the CKD-EPI equation. Assessment of eGFR is not appropriate when creatinine concentrations are rapidly changing. For clinical decisions where creatinine clearance will affect therapy, a 24-hour urine creatinine clearance may be advised. Assignment of CKD stage 1 ? 5 for patients with an eGFR near the transition point between stages may be based on clinical assessment of muscle mass and symptoms in addition to eGFR. Blood specimen (specimen) 04/25/2020 1:28 PM EST 04/25/2020 1:32 PM EST Narrative Resulting Agency Comment Spec In Lab Ankur Doss MD CHEMISTRY ORDERABLES Performing Organization Address [facility] Co de Phone Number [facility] [place] [address] * PSA (Ultrasensitive) (04/25/2020 1:28 PM EST) Prostate Specific Antigen (Ultrasensitive ) 0.20 0.00 - 4.00 ng/mL [facility] Comment: PLEASE NOTE: The above reference interval is intended for healthy males with an intact prostate. Values within this reference interval may indicate recurrence in men who have undergone radical prostatectomy. Blood specimen (specimen) 04/25/2020 1:28 PM EST 04/25/2020 1:32 PM EST Narrative Resulting Agency Comment Spec In Lab Ankur Doss MD CHEMISTRY ORDERABLES Performing Organization Address City/[facility]/ZIP Co de Phone Number [facility] [place] [address] documented in this encounter Visit Diagnoses Diagnosis Malignant neoplasm of prostate documented in this encounter Care Teams Auto Technician Relationship Specialty Start Date End Date Michael Franco MD [address] [place] [address] PCP - General 04/03/10 05/15/21 documented as of this encounter
--- OUTSIDE RECORDS SUMMARY | 2024-01-09 01:25 | XMS_ITS | Encounter Summary ---
[place] [address] Care Team Providers Care Data Analytics Developer Name Role Phone Michael Franco MD Primary Care Provider [phone] Encounter Details Date Type Department Care Team (Latest Contact Info) Description 04/25/2021 11:50 AM EST Laboratory Appointment Lab [address] [place] [address] Malignant neoplasm of prostate Social [...] 9:30 AM EDT Office Visit Hematology/Oncology at [address] [phone] Miguelina Lucia APRN [facility] [place] [address] 02/27/2024 2:15 PM EDT Office Visit Dermatology at [address] [place] [phone] Eliel Vanessa MD [address], [place] [address] documented as of this encounter Procedures Procedure Name Priority Date/Time Associated Diagnosis Comments HEMOGRAM Routine 04/25/2021 12:08 PM EST Malignant neoplasm of prostate DIFFERENTIAL, AUTOMATED Routine 04/25/2021 12:08 PM EST Malignant neoplasm of prostate HC CBC,PLT & AUTO DIFF Routine 04/25/2021 12:08 PM EST Malignant neoplasm of prostate HC PROSTATE SPECIFIC ANTIGEN Routine 04/25/2021 12:08 PM EST Malignant neoplasm of prostate HC VENIPUNCTURE Routine 04/25/2021 12:08 PM EST Malignant neoplasm of prostate documented in this encounter Results * Differential, Automated (04/25/2021 12:08 PM EST) Neutrophil % 68.3 % [facility] Neutrophil Absolute 4.14 1.70 - 6.10 x10(3)/[facility] LAB[facility] Lymph % 19.3 % [facility] Lymphocytes Abs 1.2 0.9 - 3.2 x10(3)/[facility] LAB[facility]ORY Monocyte % 8.9 % [facility] Monocyte Abs 0.5 0.3 - 0.9 x10(3)/[facility] LABOR[facility]ORY Eos % 2.6 % [facility] Eosinophils Abs 0.2 0.0 - 0.4 x10(3)/[facility] LAB[facility] Basophil % 0.7 % [facility] Baso Absolute 0.0 0.0 - 0.1 x10(3)/[facility] LAB[facility] Immature Gran % 0.20 % [facility] Comment: Immature granulocytes(IG's)percentage and absolute count will include metamyelocytes, myelocytes, and promyelocytes. Blood smears from CBCs yielding IG's will be scanned manually for concordance. If this scan disagrees with the automated IG or if promyelocytes are noted, a manual differential will be performed. Immature Gran Absolute 0.01 0.00 - 0.04 x10(3)/mcL [facility] Blood 04/25/2021 12:0 8 PM EST 04/25/2021 12:12 PM EST Narrative Resulting Agency Comment Spec In Lab Kiera Zuluaga RN HEMATOLOGY ORDERABLE S [facility] [place] [address] * (ABNORMAL) Hemogram (04/25/2021 12:08 PM EST) White Blood Cell 6.1 4.0 - 9.5 x10(3)/[facility] LABORAT[facility] Red Blood Cell 4.91 4.58 - 5.54 x10(6)/[facility] Hemoglobin 16.4 13.7 - 16.5 g/dL [facility] Hematocrit 47.2 40.5 - 48.5 % [facility] Mean Cell Volume 96.1(H) 82.9 - 93.1 [facility] Mean Cell Hemoglobin 33.4(H) 27.5 - 32.1 pg [facility] Mean Cell Hemoglobin Concentration 34.7 32.0 - 35.7 g/dL [facility] Platelet 152 145 - 357 x10(3)/[facility] LABORAT[facility] RDW Standard Deviation 44.1 36.0 - 45.0 [facility] RDW coefficient of variation 12.4 11.4 - 13.8 % [facility] Mean Platelet Volume 10.4 7.6 - 12.9 [facility] NRBC% auto 0.0 % [facility] NRBC Absolute 0.000 0.000 - 0.000 x10(3)/[facility] Blood 04/25/2021 12:0 8 PM EST 04/25/2021 12:12 PM EST Narrative Resulting Agency Comment Spec In Lab Kiera Zuluaga RN HEMATOLOGY ORDERABLE S Performing Organization Address [facility] Co de Phone Number [facility] [place] [address] * PSA (Ultrasensitive) (04/25/2021 12:08 PM EST) Prostate Specific Antigen (Ultrasensitive ) 0.31 0.00 - 4.00 ng/mL [facility] Comment: PLEASE NOTE: The above reference interval is intended for healthy males with an intact prostate. Values within this reference interval may indicate recurrence in men who have undergone radical prostatectomy. Blood 04/25/2021 12:0 8 PM EST 04/25/2021 12:12 PM EST Narrative Resulting Agency Comment Spec In Lab Kiera Zuluaga RN CHEMISTRY ORDERABLES Performing Organization Address [facility] Co de Phone Number [facility] [place] [address] * (ABNORMAL) Comprehensive metabolic panel (non-fasting) (04/25/2021 12:08 PM EST) Glucose 104 65 - 199 mg/dL [facility] Comment:Diabetes: >=200 mg/d L plus symptoms Blood Urea Nitrogen 20 10 - 20 mg/dL [facility] Creatinine 0.74(L) 0.80 - 1.50 mg/dL [facility] Sodium 143 135 - 145 mmol/L [facility] Potassium 4.4 3.5 - 5.0 mmol/L [facility] Comment: Please note: ??Patients with WBC >100,000 may have falsely elevated Potassium levels. ??For accurate Potassium quantification in these patients send serum separator tube (gold top) for subsequent determinations. ??Contact the Clinical Chemistry Laboratory if there are any questions. Chloride 106 98 - 107 mmol/L [facility] Carbon Dioxide 27 22 - 31 mmol/L [facility] Anion Gap 10 5 - 15 mmol/L [facility] Calcium 10.0 8.5 - 10.5 mg/dL [facility] Protein, Total 7.5 6.1 - 8.0 g/dL [facility] Albumin 4.8 3.2 - 5.2 g/dL [facility] Aspartate Aminotransferase 20 0 - 39 unit/L [facility] Alanine Aminotransferase 24 0 - 55 unit/L [facility] Alkaline Phosphatase 72 40 - 130 unit/L [facility] Bilirubin, Total 0.7 0.2 - 1.3 mg/dL [facility] Est Glomerular Filtration Rate 88 >=60 mL/min/1. 73 m?? [facility] Comment: This patient? s estimated glomerular filtration rate (eGFR) is between 88 mL/min/1.73 m2 (patients with less muscle mass per kg body weight) and 102 mL/min/1.73 m2 (patients with more muscle mass per kg body weight) as determined by the CKD-EPI equation. Assessment of eGFR is not appropriate when creatinine concentrations are rapidly changing. For clinical decisions where creatinine clearance will affect therapy, a 24-hour urine creatinine clearance may be advised. Assignment of CKD stage 1 - 5 for patients with an eGFR near the transition point between stages may be based on clinical assessment of muscle mass and symptoms in addition to eGFR. Blood 04/25/2021 12:0 8 PM EST 04/25/2021 12:12 PM EST Narrative Resulting Agency Comment Spec In Lab Kiera Zuluaga RN CHEMISTRY ORDERABLES [facility] [place] [address] documented in this encounter Visit Diagnoses Diagnosis Malignant neoplasm of prostate documented in this encounter Care Teams Data Analytics Developer Relationship Specialty Start Date End Date Michael Franco MD [address] [place] [address] PCP - General 04/03/10 05/15/21 documented as of this encounter
--- OUTSIDE RECORDS SUMMARY | 2024-01-09 01:25 | XMS_ITS | Encounter Summary ---
Author Organization [facility] [place] [address] Care Team Providers Care Food Stylist Name Role Phone EuniceDilcia hammondsmonty Cano APRN Primary Care Provider [phone] Encounter Details Date Type Department Care Team (Late Contact Info) Description 10/24/2021 Orders Only Hematology/Oncology at [address] [phone] Nisha Marlow [facility] [place] [address] Malignant neoplasm of prostate Social History Tobacco [...] 9:30 AM EDT Office Visit Hematology/Oncology at [address] [phone] Miguelina Lucia APRN [facility] [place] [address] 02/27/2024 2:15 PM EDT Office Visit Dermatology at [place] [address] [place] [address] Eliel Vanessa MD [address], MICHAEL [place] [address] documented as of this encounter Visit Diagnoses Diagnosis Malignant neoplasm of prostate documented in this encounter Care Teams Food Stylist Relationship Specialty Start Date End Date Vicky Curry APRN [address] [facility] [address] [place] [address] PCP - General Family Medicine 05/16/21 2 documented as of this encounter
--- OUTSIDE RECORDS SUMMARY | 2024-01-09 01:25 | XMS_ITS | Encounter Summary ---
[place] [address] Care Team Providers Care Truck Guard Name Role Phone Michael Franco MD Primary Care Provider [phone] Encounter Details Date Type Department Care Team (Late st Contact Info) Description 05/10/2020 11:00 AM EST Office Visit Hematology/Oncology at [address] [phone] Kiera Zuluaga, RN Malignant neoplasm of prostate [...] Sign Reading Time Taken Comments Blood Pressure 158/75 05/10/2020 11:00 AM EST Pulse 52 05/10/2020 11:00 AM EST Temperature 36 ??C (96.8 ??F) 05/10/2020 11:00 AM EST Respiratory Rate 20 05/10/2020 11:00 AM EST Oxygen Saturation 98% 05/10/2020 11:00 AM EST Inhaled Oxygen Concentration - - Weight 111.1 kg (245 lb) 05/10/2020 11:06 AM EST Height 185.7 cm (6' 1.11) 05/10/2020 11:00 AM Luis Eduardo ALVAREZ Body Mass Index 32.23 05/10/2020 11:00 AM EST documented in this encounter Progress Notes * Kiera Zuluaga, CROCODILE FARMER - 05/10/2020 11:00 AM EST Problem list 1. Prostate cancer Diagnosed in 2006 with a PSA of 4.8. He underwent laparoscopic prostatectomy. He was found of [place]'s 7 with perineural invasion but no extracapsular [...] stenosis S/P Bovine Aortic valve replacement Interval history(05/10/20): Maribell returns to the [facility] today for follow-up of his prostate cancer. He is feeling well today. Since his last visit with us he has been in the ED with a kidney stone which he passed. Lately he has been having some chest discomfort and feelings of tightness in his neck. He has a visit coming up shortly with his search director and he is having an echocardio gram done. Denies any joint pain or any other pain. Denies any urinary issues. No fevers, chills orinfections. Energy level has been good. He has intermittent issues with his bowels- sometimes he has normal movements and sometimes he has cramping and diarrhea. No shortness of breath or edema. PMH: No interval changes since last visit Social and family history: No interval changes since last visit Review of Systems Constitution: Negative. HENT: Negative. Eyes: Negative. Cardiovascular: Negative. Positive for chest discomfort and tightness in his throat. No swelling. Respiratory: Negative. Skin: Actinic keratoses [...] normal. Pathology: 09/30/2006 Adenocarcinoma of the prostate [place] pattern 3+4 Labs: 04/25/20- WBC-6.9 Hgb/Hct-15.6/45.5 Plt-167 ANC-4.36 Na-140 K+-3.8 BUN/Cr-18/0.99 Ca-9.1 Glucose-95 Albumin-4.6 T. Bili-0.5 Alk phos- 73 AST-23 ALT-23 10/26/19- WBC-6.3 Hgb/Hct-15.3/44.6 Plt-191 ANC-3.77 BUN-22 Cr-0.84 K+-4.1 Ca-9.6 LFTS unremarkable Date PSA Testosterone 04/25/20 0.20 10/26/19 0.17 Results for MARIBELL KAUFFMAN . ( ) as of 04/27/2019 14:17 Ref. [...] increasing. He denies any urinary issues. He has been having some chest discomfort and tightness in his throat and is seeing his search director later this week for followup and an echocardiogram. He denies any other pain or symptoms. Will continue to monitor his PSA every six months. Plan: 1. CBC,CMP, PSA 2. Follow up visit in 6 months with labs The plan was discussed with the patient in details. All questions were answered to the patients satisfaction documented in this encounter Plan of Treatment Upcoming Encounters Date Type Department Care Team (Late st Contact Info) Description 01/20/2024 9:30 AM EDT Office Visit Hematology/Oncology at [address] [phone] Miguelina Lucia APRN [facility] [place] [address] 02/27/2024 2:15 PM EDT Office Visit Dermatology at [place] [address] [place] [phone] Eliel Vanessa MD [address], [place] [address] documented as of this encounter Visit Diagnoses Diagnosis Malignant neoplasm of prostate documented in this encounter Care Teams Truck Guard Relationship Specialty Start Date End Date Michael Franco MD [address] [place] [address] PCP - General 04/03/10 05/15/21 documented as of this encounter
--- OUTSIDE RECORDS SUMMARY | 2024-01-09 01:25 | XMS_ITS | Encounter Summary ---
[place] [address] Care Team Providers Care Preassembler Printed Circuit Board Name Role Phone Desire Fountain APRN Primary Care Provider [phone] Reason for Visit * Reason Comments Skin Lesion * Consultation (Routine) - Closed Specialty Diagnoses / Procedures Referred By Hayley milian Referred To Contact Dermatology Diagnoses Solar keratosis Desire Fountain APRN [address] [facility] 1 [place] [address] [facility] [address] [place] [phone] Referral ID Status Reason Start Date Expiration Date V isits Requested Visits Authorized [id number] Closed Consult, Test & Treat PCP Updated and/or Approved 06/18/2022 06/18/2023 6 6 Encounter Details Date Type Department Care Team (Late st Contact Info) Description 08/30/2022 2:30 PM EDT Office Visit Dermatology at [address] [phone] Eliel Vanessa MD [address] [facility], [place] [address] [place] (actinic keratosis); History of squamous cell carcinoma in situ [...] Progress Notes * Eliel Vanessa MD - 08/30/2022 2:30 PM EDT Problem: 1. Right dorsal forearm lesion 2. Actinic damage parietal scalp Marco Antonio presents today with his Lauren. He is has actinic damage of the scalp and is referred for evaluation of this nonhealing lesion right forearm. This has been present for a year and a half at least. Patient grew up in [facility]. He is here today with his Lauren. He is in officework of his life. He states that he had several courses of 5-FU usually once daily application treatment but then eventually, the scalp lesions recur. Physical examination reveals a pleasant 81-year-old woman who has a shallow ulceration on the rightdorsal forearm about a centimeter in diameter. Is consistent with SCC versus BCCA. He has diffuse actinic keratoses present over the scalp, most prominently anteriorly. Assessment plan: Probable BCC versus SCC right dorsal forearm. 1. After obtaining consent site was anesthetized and removed with shave C&D 2. After curettage, the site measured 1 cm in diameter 3. Wound care instructions and supplies given Actinic keratosis scalp 1. Return to clinic in 3 weeks following healing of the right dorsal foot lesion to initiate a twice daily 3-week course of 5-FU to scalp utilizing triamcinolone presents afterwards 2. Patient has at home an unused 40 g tube of 5-FU. CC: Desire Fountain APRN documented in this encounter Plan of Treatment Upcoming Encounters Date Type Department Care Team (Late st Contact Info) Description 01/20/2024 9:30 AM EDT Office Visit Hematology/Oncology at [address] [phone] Miguelina Lucia APRN [facility] [place] [address] 02/27/2024 2:15 PM EDT Office Visit Dermatology at [place] [address] [place] [phone] Eliel Vanessa MD [address], [place] [address] documented as of this encounter Visit Diagnoses Diagnosis [place] (actinic keratosis) Actinic keratosis History of squamous cell carcinoma in situ (SCCIS) of skin documented in this encounter Care Teams Preassembler Printed Circuit Board Relationship Specialty Start Date End Date Александр, Desire Richard APRN PCP - General Internal Medicine 06/18/22 10/07/23 documented as of this encounter
--- OUTSIDE RECORDS SUMMARY | 2024-01-09 01:25 | XMS_ITS | Encounter Summary ---
[place] [address] Care Team Providers Care Public Bath Attendant Name Role Phone Александр, Desire Richard APRN Primary Care Provider [phone] Reason for Visit * Reason Comments Follow-up Encounter Details Date Type Department Care Team (Late st Contact Info) Description 12/19/2022 3:30 PM EDT Office Visit Dermatology at [address] [phone] Eliel Vanessa MD 580 [facility] [place] [address] [place] (actinic keratosis); History of basal cell carcinoma; History of [...] Progress Notes * Eliel Vanessa MD - 12/19/2022 3:30 PM EDT Problem: 1. 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 Actinic damage parietal scalp status post 3 weeks 5-FU to scalp September 2022 Marco Antonio follows today with his Lauren. He has had a good response with only minimal erythema but good clearance of the actinic's present widely over the bald parietal scalp. He tolerated this well. Physical examination reveals a pleasant 82-year-old gentleman who has resolution of all but 3 of the prior actinic keratoses of the scalp. Assessment plan: Actinic keratosis, mostly resolved following 3-week course of 5-FU 1. Today's residual actinic keratosis sites, 3, treated with LN2 2. Patient congratulated on good response 3. Return to clinic in a year for repeat check. CC: Desire Fountain APRN documented in this encounter Plan of Treatment Upcoming Encounters Date Type Department Care Team (Late st Contact Info) Description 01/20/2024 9:30 AM EDT Office Visit Hematology/Oncology at [address] [phone] Miguelina Lucia APRN [facility] [place] [address] 02/27/2024 2:15 PM EDT Office Visit Dermatology at [address] [place] [phone] Eliel Vanessa MD 580 [facility], [place] [address] documented as of this encounter Visit Diagnoses Diagnosis [place] (actinic keratosis) Actinic keratosis History of basal cell carcinoma Personal history of other malignant neoplasm of skin History of squamous cell carcinoma in situ (SCCIS) of skin documented in this encounter Care Teams Public Bath Attendant Relationship Specialty Start Date End Date Desire Fountain APRN PCP - General Internal Medicine 06/18/22 10/07/23 documented as of this encounter
--- OUTSIDE RECORDS SUMMARY | 2024-01-09 01:25 | XMS_ITS | Encounter Summary ---
Author Organization [facility] Address [facility] [place] [id number] Care Team Providers Care Apprentice Carpenter Name Role Phone Michael Franco MD Primary Care Provider [phone] Reason for Referral * Consultation (Routine) - Closed Specialty Diagnoses / Procedures Referred By Contac t Referred To Contact Urology Diagnoses Prostate cancer Erectile dysfunction, unspecified erectile dysfunction type ED S/P PROSTATECTOMY Lula Dobson APRN [address] [place] [address] Scottie Ivory MD [facility] [place] [address] Referral ID Status Reason Start Date Expiration Date V isits Requested Visits Authorized [id number] Closed Consult, Test & Treat 09/10/2018 09/10/2019 1 1 Encounter Details Date Type Department Care Team (Late st Contact Info) Description 09/10/2018 2:15 PM EDT Office Visit Hematology/Oncology at [address] [phone] Lula Dobson APRN [address] [place] [address] Prostate cancer; Erectile dysfunction, unspecified erectile dysfunction type Social History Tobacco Use Types Packs/Day Years [...] Sign Reading Time Taken Comments Blood Pressure 156/79 09/10/2018 2:19 PM EDT Pulse 68 09/10/2018 2:19 PM EDT Temperature 36.5 ??C (97.7 ??F) 09/10/2018 2:19 PM ED T Respiratory Rate 16 09/10/2018 2:19 PM EDT Oxygen Saturation 98% 09/10/2018 2:19 PM EDT Inhaled Oxygen Concentration - - Weight 113.9 kg (251 lb) 09/10/2018 2:19 PM EDT Height 185.4 cm (6' 0.99) 09/10/2018 2:19 PM ED T Body Mass Index 33.12 09/10/2018 2:19 PM EDT documented in this encounter Progress Notes * Lula Dobson, CITRIX ENGINEER - 09/10/2018 2:15 PM EDT Problem list 1. Prostate cancer Diagnosed in 2006 with a PSA of 4.8. He underwent laparoscopic prostatectomy. He was found of Michelle's 7 with perineural invasion but no extracapsular extension. He did well until his PSA began to rise in 2010. It andreina to 0.13 in January of 2011 and radiation was started along with Lupron in February of 2011. He completed radiation therapy July 03, 2011. 2. Aortic stenosis S/P Bovine Aortic valve replacement Subjective: Maribell comes in today for follow-up on his prostate cancer, now 7yrs out. He is doing great. Review of Systems Constitution: Negative. HENT: Negative. Eyes: Negative. Cardiovascular: Negative. Respiratory: Negative. Skin: Actinic keratoses bothersome on top of scalp- sees Derm Musculoskeletal: Negative. Gastrointestinal: Negative. Genitourinary: Positive for frequency, nocturia and urgency. Does note ED since prostatectomy in 2006. He and his miss this aspect of their lives upon questioning and started to explore options but then gave up. He states he still feels desire but has difficulty with maintaining an erection. They are interested in pursuing this. Neurological: Negative. Psychiatric/Behavioral: Negative. International Prostate Symptom Score Total Score_9__ 0 1 2 3 4 5 Not at all Less than one time in five Less than half of the time About half of the time More than half of the time Almost always Incomplete emptying x frequency x intermittency x urgency x Weak stream x Flow resistance x Not at all Every eight hours Every four hours Every three hours Every 2 hours Every hour nocturia x QOL=0 AMPARO = 1 BP 156/79 (Patient Position: Sitting) Pulse 68 Temp 36.5 ??C (97.7 ??F) (Oral) Resp 16 Ht 185.4 cm (6' 0.99) Wt 113.9 kg (251 lb) SpO2 98% BMI 33.12 kg/m?? Wt Readings from Last 3 Encounters: 09/10/18 113.9 kg (251 lb) 03/20/18 110.8 kg (244 lb 3.2 oz) 10/21/17 108.9 kg (240 lb) Physical Exam Constitutional: He is oriented to [...] mood and affect. His behavior is normal. Results for MARIBELL KAUFFMAN SR. ( ) as of 09/07/2018 09:00 Ref. Range 08/18/2018 11:20 WBC Latest Ref Range: 4.0 - 9.5 x10(3)/mcL 6.8 RBC Latest Ref Range: 4.58 - 5.54 x10(6)/mcL 4.74 Hemoglobin Latest Ref Range: 13.7 - 16.5 gm/dL 15.6 Hematocrit Latest Ref Range: 40.5 - 48.5 % 46.8 MCV Latest Ref Range: 82.9 - 93.1 fL 98.7 (H) MCH Latest Ref Range: 27.5 - 32.1 pg 32.9 (H) MCHC Latest Ref Range: 32.0 - 35.7 gm/dL 33.3 RDWSD Latest Ref Range: 36.0 - 45.0 fL 45.6 (H) RDWCV Latest Ref Range: 11.4 - 13.8 % 12.6 Platelets Latest Ref Range: 145 - 357 x10(3)/mcL 177 MPV Latest Ref Range: 7.6 - 12.9 fL 10.7 nRBC % Auto Latest Units: % 0.0 nRBC Abs Auto Latest Ref Range: 0.000 - 0.000 x10(3)/mcL 0.000 Neutr Abs (ANC) Latest Ref Range: 1.70 - 6.10 x10(3)/mcL 4.28 Neutrophils % Latest Units: % 63.0 Immature Gran % Latest Units: % 0.30 Lymphocytes % Latest Units: % 23.5 Monocytes % Latest Units: % 9.0 Eosinophils % Latest Units: % 3.5 Basophils % Latest Units: % 0.7 Carolann Gran Abs Latest Ref Range: 0.00 - 0.04 x10(3)/mcL 0.02 Lymphocytes Abs Latest Ref Range: 0.9 - 3.2 x10(3)/mcL 1.6 Monocyte Abs Latest Ref Range: 0.3 - 0.9 x10(3)/mcL 0.6 Eosinophils Abs Latest Ref Range: 0.0 - 0.4 x10(3)/mcL 0.2 Basophils Abs Latest Ref Range: 0.0 - 0.1 x10(3)/mcL 0.0 Sodium Latest Ref Range: 135 - 145 mmol/L 143 Potassium Latest Ref Range: 3.5 - 5.0 mmol/L 4.3 Chloride Latest Ref Range: 98 - 107 mmol/L 103 CO2 Latest Ref Range: 22 - 31 mmol/L 28 Anion Gap Latest Ref Range: 5 - 15 mmol/L 12 BUN Latest Ref Range: 10 - 20 mg/dL 17 Creatinine Latest Ref Range: 0.80 - 1.50 mg/dL 0.78 (L) eGFR Latest Ref Range: >=60 mL/min/1.73 m?? 88 eGFR Latest Ref Range: >=60 mL/min/1.73 m?? 102 Glucose Lvl Latest Ref Range: 65 - 199 mg/dL 101 Calcium Latest Ref Range: 8.5 - 10.5 mg/dL 9.7 Total Protein Latest Ref Range: 6.1 - 8.0 gm/dL 7.6 Albumin Latest Ref Range: 3.2 - 5.2 gm/dL 4.6 Total Bilirubin Latest Ref Range: 0.2 - 1.3 mg/dL 0.6 Alk Phos Latest Ref Range: 40 - 120 unit/L 58 AST Latest Ref Range: 0 - 39 unit/L 21 ALT Latest Ref Range: 0 - 55 unit/L 25 PSA Total Latest Ref Range: 0.00 - 4.00 ng/mL 0.08 Results for MARIBELL KAUFFMAN SR. ( ) as of 09/07/2018 09:00 Ref. Range 03/12/2016 10:29 03/20/2017 12:04 09/01/2017 13:22 03/04/2018 12:35 08/18/2018 11:20 PSA Total Latest Ref Range: 0.00 - 4.00 ng/mL 0.03 0.12 0.08 0.10 0.08 Assessment/plan: Maribell is doing exceptionally well 7yrs out. PSA remains stable and low. RTC 6mo for fwup. I will refer them to Dr. Scottie Ivory for evaluation for ED. Lula Dobson, MSN, INPATIENT SERVICES DIRECTOR, AOCN Hematology/Oncology Nurse Practitioner [place], [place] [phone] documented in this encounter Plan of Treatment Upcoming Encounters Date Type Department Care Team (Late st Contact Info) Description 01/20/2024 9:30 AM EDT Office Visit Hematology/Oncology at [address] [phone] Miguelina Lucia APRN [facility] [place] [address] 02/27/2024 2:15 PM EDT Office Visit Dermatology at [place] [address] [place] [address] Eliel Vanessa MD [address], [place] [address] Scheduled Referrals Name Type Priority Associated Diagnoses Orde r Schedule Referral to Urology Outpatient Referral Routine Prostate cancer Erectile dysfunction, unspecified erectile dysfunction type Ordered: 09/10/2018 documented as of this encounter Results * PSA (03/09/2019 12:11 PM EDT) Prostate Specific Antigen (Ultrasensitiv e) 0.15 0.00 - 4.00 ng/mL [facility] Blood specimen (specimen) 03/09/2019 12:11 PM EDT 03/09/2019 12:32 PM EDT Narrative Resulting Agency Comment Spec In Lab Lula Dobson CITRIX ENGINEER CHEMISTRY ORDERABLES [facility] [place] [phone] documented in this encounter Visit Diagnoses Diagnosis Prostate cancer Malignant neoplasm of prostate Erectile dysfunction, unspecified erectile dysfunction type documented in this encounter Care Teams Apprentice Carpenter Relationship Specialty Start Date End Date Michael Franco MD [address] [facility] 1 [place] [address] PCP - General 04/03/10 05/15/21 documented as of this encounter
--- OUTSIDE RECORDS SUMMARY | 2024-01-09 01:25 | XMS_ITS | Encounter Summary ---
Author Organization [facility] Address [facility] [place] [address] Care Team Providers Care Assistant Infant Toddler Teacher Name Role Phone Michael Franco MD Primary Care Provider [phone] Encounter Details Date Type Department Care Team (Late st Contact Info) Description 11/13/2018 [place] [phone] Scottie Ivory MD [facility] [place] [address] Social History Tobacco Use Types Packs/Day Years [...] encounter Miscellaneous Notes * Telephone Encounter - Stella Leon RN - 11/19/2018 2:16 PM EDT Call returned to patient. Informed him that the prior authorization for Sildenafil was submitted and denied by insurance. Advised that he look up local prices on [employer]. If he finds a location with an acceptable gregory range, he should call back with pharmacy information and we are happy to sendin a new prescription. Patient agrees with the plan. * Telephone Encounter - Jessy Diamond - 11/18/2018 2:05 PM EDT Pt called again to check on the prior authorization. He said it has to go to [facility]. . Thank you! * Telephone Encounter - Vero Pruitt - 11/13/2018 2:47 PM EDT Pt called stating that his prescription of sildanafel needs a prior authorization. Pt gave this number to call to do that documented in this encounter Plan of Treatment Upcoming Encounters Date Type Department Care Team (Late st Contact Info) Description 01/20/2024 9:30 AM EDT Office Visit Hematology/Oncology at [address] [phone] Miguelina Lucia APRN [facility] [place] [address] 02/27/2024 2:15 PM EDT Office Visit Dermatology at [address] [place] [phone] Eliel Vanessa MD [address], [place] [address] documented as of this encounter Visit Diagnoses Not on filedocumented in this encounter Care Teams Assistant Infant Toddler Teacher Relationship Specialty Start Date End Date Michael Franco MD [address] [place] [address] PCP - General 04/03/10 05/15/21 documented as of this encounter
--- OUTSIDE RECORDS SUMMARY | 2024-01-09 01:25 | XMS_ITS | Encounter Summary ---
Author Organization [facility] [place] [address] Care Team Providers Care Metal Spray Operator Name Role Phone Michael Franco MD Primary Care Provider [phone] Encounter Details Date Type Department Care Team (Late st Contact Info) Description 02/23/2020 Orders Only Hematology/Oncology at [address] [phone] Corey Parra RN Malignant neoplasm of prostate Social History [...] 9:30 AM EDT Office Visit Hematology/Oncology at [address] [phone] Miguelina Lucia APRN [facility] [place] [address] 02/27/2024 2:15 PM EDT Office Visit Dermatology at [address] [place] [address] Eliel Vanessa MD [address], [place] [address] documented as of this encounter Visit Diagnoses Diagnosis Malignant neoplasm of prostate documented in this encounter Care Teams Metal Spray Operator Relationship Specialty Start Date End Date Michael Franco MD [address] [facility] 1 [place] [address] PCP - General 04/03/10 05/15/21 documented as of this encounter
--- OUTSIDE RECORDS SUMMARY | 2024-01-09 01:25 | XMS_ITS | Encounter Summary ---
[place] [address] Care Team Providers Care Transportation Maintenance Supervisor Name Role Phone Александр, Desire Richard APRN Primary Care Provider [phone] Encounter Details Date Type Department Care Team (Latest Contact Info) Description 08/30/2022 9:36 PM EDT - 08/30/2022 11:59 PM EDT Hospital [place] [address] Discharge Disposition: Home Social History [...] GLUCOSAMINE HCL/CHONDRO EVANS A (GLUCOSAMINE-CHONDROITIN ORAL) 03/13/2010 hydroCHLOROthiazide (Hydrodiuril) 25 mg Tablet TAKE 1 TABLET BY MOUTH DAILY 06/09/2020 07/15/2023 UNABLE TO FIND cbd oil 01/27/2023 documented as of this encounter Plan of Treatment Upcoming Encounters Date Type Department Care Team (Late st Contact Info) Description 01/20/2024 9:30 AM EDT Office Visit Hematology/Oncology at [address] [phone] Miguelina Lucia APRN [facility] [place] [address] 02/27/2024 2:15 PM EDT Office Visit Dermatology at [address] [place] [phone] Eliel Vanessa MD [address], [place] [address] documented as of this encounter Procedures Procedure Name Priority Date/Time Associated Diagnosis Comments SURGICAL PATHOLOGY REPORT Routine 08/30/2022 3:15 PM EDT documented in this encounter Results * (ABNORMAL) Surgical Pathology Report (08/30/2022 3:15 PM EDT) Final Diagnosis [id number] ? Location: [facility] The signing pathologist has (i) examined the relevant preparation(s) for the specimen(s) and (ii) rendered or confirmed the diagnosis(es). . ?Surgical Pathology DIAGNOSIS Right dorsal forearm, skin shave biopsy: - ??Basal cell carcinoma, nodular type, present at the peripheral and deep specimen edge Electronically signed by: ?Kurt BENITEZ, PhD, Chet Richard Verified: ??09/13/2022 8:49 ?? Dermat[address]i st, Bone & Soft Tissue Pathologist Performed at: ??-[facility] [place] Dept. of Pathology, [place] [address] .Net Architect: Elan Godinez MD, AP, ??CLIA Certificate: [id number] DISCUSSION THIS RESULT REQUIRES PHYSICIAN/A.P.P. FOLLOW UP SPECIMEN(S) SUBMITTED A - R Dorsal forearm, shave Referring Identifier: ?(not provided) CLINICAL INFORMATION Pearly ulceration, tx'ed & shave C&D: BCCA/SCCA SPECIMEN PROCESSING A - Labeled/Fixative : Patient demographics, formalin. Quantity/Size: ??Single, 1.3 x 0.7 x 0.1 cm. Tissue Description: Shave of a gore-pink crusted skin papule. Sections/Process ing: Inked, quadrisected and entirely submitted in 1 cassette labeled A1. ??sdy(A) 09/13/2022 8:49 AM EDT [facility] SPECIMEN FROM SKIN / Unknown 08/30/2022 3:15 PM EDT 08/30/2022 3:15 PM EDT Eliel Vanessa MD PATHOLOGY/CYTOLOGY O RDERABLES [facility] [place] [phone] [facility] [place] [address] documented in this encounter Visit Diagnoses Not on filedocumented in this encounter Care Teams Transportation Maintenance Supervisor Relationship Specialty Start Date End Date Александр, Desire Richard APRN PCP - General Internal Medicine 06/18/22 10/07/23 documented as of this encounter
--- OUTSIDE RECORDS SUMMARY | 2024-01-09 01:25 | XMS_ITS | Encounter Summary ---
[place] [address] Care Team Providers Care Business And Financial Counsel Name Role Phone AntoinetteToyVickymarni Cano APRN Primary Care Provider [phone] Encounter Details Date Type Department Care Team (Latest Contact Info) Description 05/30/2022 9:50 AM EST Laboratory Appointment Lab 3L [place] [address] Malignant neoplasm of prostate Social [...] 9:30 AM EDT Office Visit Hematology/Oncology at [address] [phone] Miguelina Lucia APRN [facility] [place] [address] 02/27/2024 2:15 PM EDT Office Visit Dermatology at [address] [place] [address] Eliel Vanessa MD [address] [facility], [place] [address] documented as of this encounter Procedures Procedure Name Priority Date/Time Associated Diagnosis Comments HEMOGRAM Routine 05/30/2022 10:11 AM EST Malignant neoplasm of prostate DIFFERENTIAL, AUTOMATED Routine 05/30/2022 10:11 AM EST Malignant neoplasm of prostate HC VENIPUNCTURE Routine 05/30/2022 10:11 AM EST Malignant neoplasm of prostate HC PROSTATE SPECIFIC ANTIGEN Routine 05/30/2022 10:11 AM EST Malignant neoplasm of prostate COMPREHENSIVE METABOLIC PANEL Routine 05/30/2022 10:11 AM EST Malignant neoplasm of prostate documented in this encounter Results * Differential, Automated (05/30/2022 10:11 AM EST) Neutrophil % 68.7 % [facility] Neutrophil Absolute 4.69 1.70 - 6.10 x10(3)/[facility] Lymph % 18.4 % [facility] Lymphocytes Abs 1.3 0.9 - 3.2 x10(3)/[facility] Monocyte % 8.6 % [facility] Monocyte Abs 0.6 0.3 - 0.9 x10(3)/[facility] Eos % 3.1 % [facility] Eosinophils Abs 0.2 0.0 - 0.4 x10(3)/[facility] Basophil % 0.9 % [facility] Baso Absolute 0.1 0.0 - 0.1 x10(3)/[facility] Immature Gran % 0.30 % [facility] Comment: Immature granulocytes(IG's)percentage and absolute count will include metamyelocytes, myelocytes, and promyelocytes. Blood smears from CBCs yielding IG's will be scanned manually for concordance. If this scan disagrees with the automated IG or if promyelocytes are noted, a manual differential will be performed. Immature Gran Absolute 0.02 0.00 - 0.04 x10(3)/mcL [facility] Blood 05/30/2022 10:1 1 AM EST 05/30/2022 10:21 AM EST Narrative Resulting Agency Comment Spec In Lab Nisha Marlow ROTATING EQUIPMENT ENGINEER HEMATOLOGY ORDERABLE S Performing Organization Address City/[facility]/ZIP Co de Phone Number [facility] [place] [address] * (ABNORMAL) Hemogram (05/30/2022 10:11 AM EST) White Blood Cell 6.8 4.0 - 9.5 x10(3)/mc L [facility] Red Blood Cell 4.50(L) 4.58 - 5.54 x10(6)/mc L [facility] Hemoglobin 14.8 13.7 - 16.5 g/dL [facility] Hematocrit 42.9 40.5 - 48.5 % [facility] Mean Cell Volume 95.3(H) 82.9 - 93.1 fL [facility] Mean Cell Hemoglobin 32.9(H) 27.5 - 32.1 pg [facility] Mean Cell Hemoglobin Concentration 34.5 32.0 - 35.7 g/dL [facility] Platelet 142(L) 145 - 357 x10(3)/mc L [facility] RDW Standard Deviation 44.0 36.0 - 45.0 fL [facility] RDW coefficient of variation 12.6 11.4 - 13.8 % [facility] Mean Platelet Volume 10.2 7.6 - 12.9 fL [facility] NRBC% auto 0.0 % [facility] NRBC Absolute 0.000 0.000 - 0.000 x10(3)/mc L [facility] Blood 05/30/2022 10:1 1 AM EST 05/30/2022 10:21 AM EST Narrative Resulting Agency Comment Spec In Lab Nisha Marlow APRN HEMATOLOGY ORDERABLE S Performing Organization Address City/[facility]/ZIP Co de Phone Number [facility] [place] [address] * Comprehensive metabolic panel (non-fasting) (05/30/2022 10:11 AM EST) Glucose 103 65 - 199 mg/dL [facility] Comment:Diabetes: >=200 mg/d L plus symptoms Blood Urea Nitrogen 19 10 - 20 mg/dL [facility] Creatinine 0.82 0.80 - 1.50 mg/dL [facility] Sodium 141 135 - 145 mmol/L [facility] Potassium 4.3 3.5 - 5.0 mmol/L [facility] Comment: Please note: ??Patients with WBC >100,000 may have falsely elevated Potassium levels. ??For accurate Potassium quantification in these patients send serum separator tube (gold top) for subsequent determinations. ??Contact the Clinical Chemistry Laboratory if there are any questions. Chloride 105 98 - 107 mmol/L [facility] Carbon Dioxide 27 22 - 31 mmol/L [facility] Anion Gap 9 5 - 15 mmol/L [facility] Calcium 9.8 8.5 - 10.5 mg/dL [facility] Protein, Total 7.1 6.1 - 8.0 g/dL [facility] Albumin 4.6 3.2 - 5.2 g/dL [facility] Aspartate Aminotransferase 16 0 - 39 unit/L [facility] Alanine Aminotransferase 18 0 - 55 unit/L [facility] Alkaline Phosphatase 65 40 - 130 unit/L [facility] Bilirubin, Total 0.6 0.2 - 1.3 mg/dL [facility] Est Glomerular Filtration Rate 89 >=60 mL/min/1. 73 m?? [facility] Comment: This patient's estimated GFR was calculated using the 2020 CKD-EPI equation. The estimated GFR can vary from the measured GFR by up to 30% in the absence of rapidly changing kidney function. Assessment of the estimated GFR is not appropriate when creatinine concentrations are rapidly changing. For clinical situations in which a more precise estimate of GFR is necessary, consider alternative methods of GFR estimation such as a 24-hour urine creatinine clearance. Assignment of CKD stage 1-5 for patients with an eGFR near the transition point between stages may be based on clinical assessment of muscle mass and symptoms in addition to eGFR. Blood 05/30/2022 10:1 1 AM EST 05/30/2022 10:21 AM EST Narrative Resulting Agency Comment Spec In Lab Nisha Marlow APRN CHEMISTRY ORDERABLES Performing Organization Address [facility] Co de Phone Number [facility] [place] [address] * PSA (Ultrasensitive) (05/30/2022 10:11 AM EST) Prostate Specific Antigen (Ultrasensitive) 0.35 0.00 - 4.00 ng/mL [facility] Comment: PLEASE NOTE: The above reference interval is intended for healthy males with an intact prostate. Values within this reference interval may indicate recurrence in men who have undergone radical prostatectomy. This result was generated using a Smashrunas immunoassay. ??Results obtained from other methods or manufacturers cannot be used interchangeably with this method. Blood 05/30/2022 10:1 1 AM EST 05/30/2022 10:21 AM EST Narrative Resulting Agency Comment Spec In Lab Nisha Marlow APRN CHEMISTRY ORDERABLES Performing Organization Address [facility] Co de Phone Number [facility] [place] [address] documented in this encounter Visit Diagnoses Diagnosis Malignant neoplasm of prostate documented in this encounter Care Teams Business And Financial Counsel Relationship Specialty Start Date End Date Vicky Curry APRN [address] [place] [address] PCP - General Family Medicine 05/16/21 06/17/22 documented as of this encounter
--- OUTSIDE RECORDS SUMMARY | 2024-01-09 01:25 | XMS_ITS | Encounter Summary ---
Author Organization [facility] [place] [address] Care Team Providers Care Endoscopic Technician Name Role Phone Michael Franco MD Primary Care Provider [phone] Encounter Details Date Type Department Care Team (Late st Contact Info) Description 11/23/2018 [place] [phone] Scottie Ivory MD [facility] [place] [address] Social History Tobacco Use Types Packs/Day Years [...] encounter Miscellaneous Notes * Telephone Encounter - Henry Wright RN - 11/23/2018 10:19 AM EDT Spoke with Ayad and order was placed to [facility] for Sildenafil [address] Ivory. Will call with any questions or concerns * Telephone Encounter - Vero Pruitt - 11/23/2018 9:08 AM EDT Pt looking to get prescription sent to him. He had a hard time using [email or web address] He thinks he is going to try one of the [facility] up his way. Please give him a call at [phone] documented in this encounter Plan of Treatment Upcoming Encounters Date Type Department Care Team (Late st Contact Info) Description 01/20/2024 9:30 AM EDT Office Visit Hematology/Oncology at [address] [phone] Miguelina Lucia [facility] [place] [address] 02/27/2024 2:15 PM EDT Office Visit Dermatology at [address] [place] [phone] Eliel Vanessa MD [address] [facility] [facility] [address], [place] [address] documented as of this encounter Visit Diagnoses Not on filedocumented in this encounter Care Teams Endoscopic Technician Relationship Specialty Start Date End Date Michael Franco MD [address] [place] [address] PCP - General 04/03/10 05/15/21 documented as of this encounter
--- OUTSIDE RECORDS SUMMARY | 2024-01-09 01:25 | XMS_ITS | Encounter Summary ---
[place] [address] Care Team Providers Care Stereotyper Name Role Phone Desire Fountain APRN Primary Care Provider [phone] Reason for Referral * Consultation (Routine) - Closed Specialty Diagnoses / Procedures Referred By Hayley milian Referred To Contact Dermatology Diagnoses Solar keratosis Desire Fountain APRN [address] [place] [address] [facility] Dermatology [address] [place] [address] [place] [address] Referral ID Status Reason Start Date Expiration Date V isits Requested Visits Authorized [id number] Closed Consult, Test & Treat PCP Updated and/or Approved 06/18/2022 06/18/2023 6 6 Encounter Details Date Type Department Care Team (Late st Contact Info) Description 06/18/2022 Transcribe Orders eD Incoming Referrals [phone] Desire Fountain APRN [address] [place], [place] [id number] Solar keratosis Social History Tobacco Use Types Packs/Day Years [...] AM EDT Office Visit Hematology/Oncology at [address] [phone] Miguelina Lucia APRN [facility] [place] [address] 02/27/2024 2:15 PM EDT Office Visit Dermatology at [place] [address] [facility] [place] [phone] Eliel Vanessa MD [address] [facility] [address], [place] [address] Scheduled Referrals Name Type Priority Associated Diagnoses Order Schedule Referral to Dermatology Outpatient Referral Routine Solar keratosis Ordered: 06/18/2022 documented as of this encounter Visit Diagnoses Diagnosis Solar keratosis Actinic keratosis documented in this encounter Care Teams Stereotyper Relationship Specialty Start Date End Date Александр, Desire Richard APRN PCP - General Internal Medicine 06/18/22 10/07/23 documented as of this encounter
--- OUTSIDE RECORDS SUMMARY | 2024-01-09 01:25 | XMS_ITS | Encounter Summary ---
[place] [address] Care Team Providers Care Wash Box Operator Name Role Phone Michael Franco MD Primary Care Provider [phone] Encounter Details Date Type Department Care Team (Latest Contact Info) Description 10/26/2019 10:35 AM EDT Laboratory Appointment Lab [address]L [place] [address] Malignant neoplasm of prostate Social [...] 9:30 AM EDT Office Visit Hematology/Oncology at [address] [phone] Miguelina Lucia APRN [facility] [place] [address] 02/27/2024 2:15 PM EDT Office Visit Dermatology at [address] [place] [phone] Eliel Vanessa MD [address] [facility] [address], [place] [address] documented as of this encounter Procedures Procedure Name Priority Date/Time Associated Diagnosis Comments HEMOGRAM Routine 10/26/2019 10:02 AM EDT Malignant neoplasm of prostate DIFFERENTIAL, AUTOMATED Routine 10/26/2019 10:02 AM EDT Malignant neoplasm of prostate HC CBC,PLT & AUTO DIFF Routine 10/26/2019 10:02 AM EDT Malignant neoplasm of prostate HC PROSTATE SPECIFIC ANTIGEN Routine 10/26/2019 10:02 AM EDT Malignant neoplasm of prostate HC VENIPUNCTURE Routine 10/26/2019 10:02 AM EDT Malignant neoplasm of prostate documented in this encounter Results * Differential, Automated (10/26/2019 10:02 AM EDT) Neutrophil % 59.9 % [facility] Neutrophil Absolute 3.77 1.70 - 6.10 x10(3)/[facility] LAB[facility]AT[facility] Lymph % 24.2 % [facility] Lymphocytes Abs 1.5 0.9 - 3.2 x10(3)/[facility] Monocyte % 11.0 % [facility] Monocyte Abs 0.7 0.3 - 0.9 x10(3)/[facility] Eos % 3.5 % [facility] Eosinophils Abs 0.2 0.0 - 0.4 x10(3)/[facility] Basophil % 1.1 % [facility] Baso Absolute 0.1 0.0 - 0.1 x10(3)/[facility] LABORATORY Immature Gran % 0.30 % [facility] Comment: Immature granulocytes(IG's)percentage and absolute count will include metamyelocytes, myelocytes, and promyelocytes. Blood smears from CBCs yielding IG's will be scanned manually for concordance. If this scan disagrees with the automated IG or if promyelocytes are noted, a manual differential will be performed. Immature Gran Absolute 0.02 0.00 - 0.04 x10(3)/mcL [facility] Blood specimen (specimen) 10/26/2019 10:02 AM EDT 10/26/2019 10:08 AM EDT Narrative Resulting Agency Comment Spec In Lab Ankur oDss MD HEMATOLOGY ORDERABLE S [facility] [place] [address] * (ABNORMAL) Hemogram (10/26/2019 10:02 AM EDT) White Blood Cell 6.3 4.0 - 9.5 x10(3)/mc L [facility] Red Blood Cell 4.58 4.58 - 5.54 x10(6)/mc L [facility] Hemoglobin 15.3 13.7 - 16.5 gm/dL [facility] Hematocrit 44.6 40.5 - 48.5 % [facility] Mean Cell Volume 97.4(H) 82.9 - 93.1 fL [facility] Mean Cell Hemoglobin 33.4(H) 27.5 - 32.1 pg [facility] Mean Cell Hemoglobin Concentration 34.3 32.0 - 35.7 gm/dL [facility] Platelet 191 145 - 357 x10(3)/mc L [facility] RDW Standard Deviation 44.3 36.0 - 45.0 [facility] RDW coefficient of variation 12.3 11.4 - 13.8 % [facility] Mean Platelet Volume 10.4 7.6 - 12.9 [facility]ORY NRBC% auto 0.0 % [facility] NRBC Absolute 0.000 0.000 - 0.000 x10(3)/mc L [facility] Blood specimen (specimen) 10/26/2019 10:02 AM EDT 10/26/2019 10:08 AM EDT Narrative Resulting Agency Comment Spec In Lab Ankur Doss MD HEMATOLOGY ORDERABLE S Performing Organization Address [facility]/ZIP Co de Phone Number [facility] [place] [address] * PSA (Ultrasensitive) (10/26/2019 10:02 AM EDT) Prostate Specific Antigen (Ultrasensitiv e) 0.17 0.00 - 4.00 ng/mL [facility] Blood specimen (specimen) 10/26/2019 10:02 AM EDT 10/26/2019 10:08 AM EDT Narrative Resulting Agency Comment Spec In Lab Ankur Doss MD CHEMISTRY ORDERABLES Performing Organization Address [facility]/ZIP Co de Phone Number [facility] [place] [address] * (ABNORMAL) Comprehensive metabolic panel (non-fasting) (10/26/2019 10:02 AM EDT) Glucose 104 65 - 199 mg/dL [facility] Comment:Diabetes: >=200 mg/d L plus symptoms Blood Urea Nitrogen 22(H) 10 - 20 mg/dL [facility] Creatinine 0.84 0.80 - 1.50 mg/dL [facility] Sodium 142 135 - 145 mmol/L [facility] Potassium 4.1 3.5 - 5.0 mmol/L [facility] Comment: Please note: ??Patients with WBC >100,000 may have falsely elevated Potassium levels. ??For accurate Potassium quantification in these patients send serum separator tube (gold top) for subsequent determinations. ??Contact the Clinical Chemistry Laboratory if there are any questions. Chloride 105 98 - 107 mmol/L [facility] Carbon Dioxide 25 22 - 31 mmol/L [facility] Anion Gap 12 5 - 15 mmol/L [facility] Calcium 9.6 8.5 - 10.5 mg/dL [facility] Protein, Total 7.6 6.1 - 8.0 gm/dL [facility] Albumin 4.8 3.2 - 5.2 gm/dL [facility] Aspartate Aminotransferase 23 0 - 39 unit/L [facility] Alanine Aminotransferase 23 0 - 55 unit/L [facility] Alkaline Phosphatase 70 40 - 130 unit/L [facility] Bilirubin, Total 0.5 0.2 - 1.3 mg/dL [facility] Est Glomerular Filtration Rate 84 >=60 mL/min/1. 73 m?? [facility] Comment: The eGFR was calculated using the CKD-EPI equation. As with all creatinine based estimates of kidney function, eGFR values calculated with the CKD-EPI equation are not accurate in patients with acute kidney failure, extremes of body mass or the acutely ill. [email or web address] eGFR 98 >=60 mL/min/1. 73 m?? [facility] Comment: The eGFR was calculated using the CKD-EPI equation. As with all creatinine based estimates of kidney function, eGFR values calculated with the CKD-EPI equation are not accurate in patients with acute kidney failure, extremes of body mass or the acutely ill. [email or web address] Blood specimen (specimen) 10/26/2019 10:02 AM EDT 10/26/2019 10:08 AM EDT Narrative Resulting Agency Comment Spec In Lab Ankur Doss MD CHEMISTRY ORDERABLES [facility] [place] [address] documented in this encounter Visit Diagnoses Diagnosis Malignant neoplasm of prostate documented in this encounter Care Teams Wash Box Operator Relationship Specialty Start Date End Date Michael Franco MD [address] [place] [address] PCP - General 04/03/10 05/15/21 documented as of this encounter
--- OUTSIDE RECORDS SUMMARY | 2024-01-09 01:25 | XMS_ITS | Encounter Summary ---
[place] [address] Care Team Providers Care Director And Professor Name Role Phone Александр, Desire Richard APRN Primary Care Provider [phone] Encounter Details Date Type Department Care Team (Latest Contact Info) Description 01/14/2023 12:50 PM EDT Laboratory Appointment Lab [address] [place] [address] Malignant neoplasm of prostate Social [...] 9:30 AM EDT Office Visit Hematology/Oncology at [address] [phone] Miguelina Lucia APRN [facility] [place] [address] 02/27/2024 2:15 PM EDT Office Visit Dermatology at [address] [place] [phone] Eliel Vanessa MD [address] [facility], [place] [address] documented as of this encounter Procedures Procedure Name Priority Date/Time Associated Diagnosis Comments HEMOGRAM Routine 01/14/2023 1:19 PM EDT Malignant neoplasm of prostate DIFFERENTIAL, AUTOMATED Routine 01/14/2023 1:19 PM EDT Malignant neoplasm of prostate CBC (WITH DIFF) Routine 01/14/2023 1:19 PM EDT Malignant neoplasm of prostate PSA (ULTRASENSITIVE) Routine 01/14/2023 1:19 PM EDT Malignant neoplasm of prostate COMPREHENSIVE METABOLIC PANEL Routine 01/14/2023 1:19 PM EDT Malignant neoplasm of prostate documented in this encounter Results * Differential, Automated (01/14/2023 1:19 PM EDT) Neutrophil % 62.1 % [facility] Neutrophil Absolute 3.83 1.70 - 6.10 x10(3)/[facility] LABORAT[facility] Lymph % 25.3 % [facility] Lymphocytes Abs 1.6 0.9 - 3.2 x10(3)/[facility] LABORATORY Monocyte % 8.4 % [facility] Monocyte Abs 0.5 0.3 - 0.9 x10(3)/[facility] LABORATORY Eos % 3.2 % [facility] Eosinophils Abs 0.2 0.0 - 0.4 x10(3)/[facility] LABORATORY Basophil % 0.8 % [facility] Baso Absolute 0.0 0.0 - 0.1 x10(3)/[facility] LABORATORY Immature Gran % 0.20 % [facility] Comment: Immature granulocytes(IG's)percentage and absolute count will include metamyelocytes, myelocytes, and promyelocytes. Blood smears from CBCs yielding IG's will be scanned manually for concordance. If this scan disagrees with the automated IG or if promyelocytes are noted, a manual differential will be performed. Immature Gran Absolute 0.01 0.00 - 0.04 x10(3)/mcL [facility] Blood 01/14/2023 1:19 PM EDT 01/14/2023 1:30 PM EDT Narrative Resulting Agency Comment Spec In Lab Nisha Marlow APRN HEMATOLOGY ORDERABLE S Performing Organization Address City/[facility]/ZIP Co de Phone Number [facility] [place] [address] * (ABNORMAL) Hemogram (01/14/2023 1:19 PM EDT) White Blood Cell 6.2 4.0 - 9.5 x10(3)/mc L [facility] Red Blood Cell 4.36(L) 4.58 - 5.54 x10(6)/mc L [facility] Hemoglobin 14.6 13.7 - 16.5 g/dL [facility] Hematocrit 41.5 40.5 - 48.5 % [facility] Mean Cell Volume 95.2(H) 82.9 - 93.1 fL [facility] Mean Cell Hemoglobin 33.5(H) 27.5 - 32.1 pg [facility] Mean Cell Hemoglobin Concentration 35.2 32.0 - 35.7 g/dL [facility] Platelet 131(L) 145 - 357 x10(3)/mc L [facility] RDW Standard Deviation 44.0 36.0 - 45.0 fL [facility] RDW coefficient of variation 12.7 11.4 - 13.8 % [facility] Mean Platelet Volume 10.1 7.6 - 12.9 fL [facility] NRBC% auto 0.0 % [facility] NRBC Absolute 0.000 0.000 - 0.000 x10(3)/mc L [facility] Blood 01/14/2023 1:19 PM EDT 01/14/2023 1:30 PM EDT Narrative Resulting Agency Comment Spec In Lab Nisha Marlow APRN HEMATOLOGY ORDERABLE S Performing Organization Address City/[facility]/ZIP Co de Phone Number [facility] [place] [address] * PSA (Ultrasensitive) (01/14/2023 1:19 PM EDT) Prostate Specific Antigen (Ultrasensitive) 0.36 0.00 - 4.00 ng/mL [facility] Comment: PLEASE NOTE: The above reference interval is intended for healthy males with an intact prostate. Values within this reference interval may indicate recurrence in men who have undergone radical prostatectomy. This result was generated using a Ramon Kristel immunoassay. ??Results obtained from other methods or manufacturers cannot be used interchangeably with this method. Blood 01/14/2023 1:19 PM EDT 01/14/2023 1:30 PM EDT Narrative Resulting Agency Comment Spec In Lab Nisha Marlow RESIDENT SERVICES MANAGER CHEMISTRY ORDERABLES [facility] [place] [address] * (ABNORMAL) Comprehensive metabolic panel (non-fasting) (01/14/2023 1:19 PM EDT) Glucose 100 65 - 199 mg/dL [facility] Comment:Diabetes: >=200 mg/d L plus symptoms Blood Urea Nitrogen 19 10 - 20 mg/dL [facility] Creatinine 0.74(L) 0.80 - 1.50 mg/dL [facility] Sodium 141 135 - 145 mmol/L [facility] Potassium 4.1 3.5 - 5.0 mmol/L [facility] Comment: Please note: ??Patients with WBC >100,000 may have falsely elevated Potassium levels. ??For accurate Potassium quantification in these patients send serum separator tube (gold top) for subsequent determinations. ??Contact the Clinical Chemistry Laboratory if there are any questions. Chloride 104 98 - 107 mmol/L [facility] Carbon Dioxide 26 22 - 31 mmol/L [facility] Anion Gap 11 5 - 15 mmol/L [facility] Calcium 9.3 8.5 - 10.5 mg/dL [facility] Protein, Total 6.9 6.1 - 8.0 g/dL [facility] Albumin 4.4 3.2 - 5.2 g/dL [facility] Aspartate Aminotransferase 12 0 - 39 unit/L [facility] Alanine Aminotransferase 15 0 - 55 unit/L [facility] Alkaline Phosphatase 64 40 - 130 unit/L [facility] Bilirubin, Total 0.8 0.2 - 1.3 mg/dL [facility] Est Glomerular Filtration Rate 91 >=60 mL/min/1. 73 m?? [facility] Comment: This patient's estimated GFR was [...] and symptoms in addition to eGFR. Blood 01/14/2023 1:19 PM EDT 01/14/2023 1:30 PM EDT Narrative Resulting Agency Comment Spec In Lab Nisha Marlow APRN CHEMISTRY ORDERABLES [facility] [place] [address] documented in this encounter Visit Diagnoses Diagnosis Malignant neoplasm of prostate documented in this encounter Care Teams Director And Professor Relationship Specialty Start Date End Date Александр, Desire Richard APRN PCP - General Internal Medicine 06/18/22 10/07/23 documented as of this encounter
--- OUTSIDE RECORDS SUMMARY | 2024-01-09 01:25 | XMS_ITS | Encounter Summary ---
[place] [address] Care Team Providers Care Bath Attendant Name Role Phone Michael Franco MD Primary Care Provider [phone] Reason for Visit * Consultation (Routine) - Closed Specialty Diagnoses / Procedures Referred By Contafshan t Referred To Contact Urology Diagnoses Prostate cancer Erectile dysfunction, unspecified erectile dysfunction type ED S/P PROSTATECTOMY Lula Dobson, ORGAN TEACHER [address] [facility] [place] [place] [address] Scottie Ivory MD [facility] [place] [address] Referral ID Status Reason Start Date Expiration Date V isits Requested Visits Authorized [id number] Closed Consult, Test & Treat 09/10/2018 09/10/2019 1 1 Encounter Details Date Type Department Care Team (Late st Contact Info) Description 11/11/2018 1:40 PM EDT Office [place] [phone] Scottie Ivory MD [facility] [place] [address] Erectile dysfunction, unspecified erectile dysfunction type Social [...] Sign Reading Time Taken Comments Blood Pressure 136/66 11/11/2018 1:31 PM EDT Pulse 65 11/11/2018 1:31 PM EDT Temperature - - Respiratory Rate - - Oxygen Saturation - - Inhaled Oxygen Concentration - - Weight - - Height - - Body Mass Index - - documented in this encounter Progress Notes * Scottie Ivory MD - 11/11/2018 1:40 PM EDT S: I have been requested by Lula Dobson to see Mr. Kauffman for my opinion regarding his erectile dysfunction. He is a very pleasant 78-year-old gentleman with a history of erectile dysfunction laparoscopic prostatectomy for the last 12 years. He says his penile rigidity is approximately 0 % at best without medications. He has not tried PDE 5 inhibitors in the past. He has used a vacuum erection device without good success. His intentional erections are absent. His sustaining capacities are absent. AM erections are absent, and less frequent than previous. He rates his sexual desire at 70 % and says it is reduced due to frustration and aging. He says hisejaculation is absent following laparoscopic prostatectomy. Orgasmic capability is intact. He denies significant penile curvature. He denies penile pain. He denies a history of penile trauma. He denies blunt perineal trauma or any bicycle riding. Sexual Health Inventory for Men (AMPARO) 1. Rate your confidence: 1 2. Hard enough for penetration: 0 3. Maintain after penetration: 0 4. Maintain to completion: 0 5. Satisfaction from intercourse: 0 -- TOTAL 1 -- 1-7 Severe ED 8-11 Moderate ED 12-16 Mild to Moderate ED 17-21 Mild ED Other issues include a history of laparoscopic prostatectomy 12 years ago followed by XRT 7 years ago. He also notes urinary frequency and urgency. He consumes 3 cups of coffee in the morning and has a drink every afternoon. Past medical history is notable for hypertension, hyperlipidemia, prostate cancer. Past surgical history includes laparoscopic prostatectomy, aortic valve replacement, appendectomy, shoulder surgery. From a social perspective, he quit smoking 5 to 6 years ago and previously smoked cigars and pipe. Alcohol usage is [address] drug usage is denied. He is . He is retired. Family history is negative for any genitourinary cancers. He has no known drug allergies. His medications were reviewed and are consistent with those in the electronic medical record. A review of systems was performed and he has no pertinent positives, except for those listed in thehistory of present illness. O: On physical exam today he is in general a healthy, well-appearing man. He is awake, alert and oriented to person place and time. Mood and affect are normal. ? Gait: Normal and neurologically intact ? Skin: Warm and dry, no visible scars or lesions HEENT: EOMI, PERRLA, NC/AT ? Lungs: No audible wheezing, normal respiratory effort. ? His abdomen is soft, nontender, nondistended. His phallus is circumcised. There are no penile plaques or lesions. He has a patent, orthotopic urinary meatus. Both testes are scrotally located. The bilateral cords are palpable and within normal limits. There are no testicular masses or nodules bilaterally. His scrotum is without edema or erythema. A digital rectal exam was deferred. A: This is a 78-year-old gentleman with erectile dysfunction. P: We discussed ED at length, including the etiology and natural history of the disease. We specifically talked about the management of ED. We then discussed the treatment algorithm for ED, and I explained his options. These include PDE5 inhibitors, intraurethral alprostadil, intracavernosal injection therapy, and an inflatable penile prosthesis. He seemed most comfortable with proceeding with PDE5 inhibitor therapy after extensive explanation of the risks and benefits. He and his have reviewed all of these treatment options feel that that is the best way to proceed. I have written him for a prescription for sildenafil. I explained that I am doubtful this will have much of an effect, but he and his are interested in trying it nonetheless. We discussed appropriate medication administration, dosing and side effects. He was in agreement with this plan and expressed understanding. All of his questions were answered at length. I spent approximately 35 of the 40 minutes of our appointment in extensive [id number] counseling regarding hisED. We also discussed his urinary urgency and frequency, and I suggested reduction in caffeine and alcohol intake to see if this improves symptoms. I will see him again in 2 months to assess his progress. Should his urinary urgency and frequency remain bothersome we will consider anticholinergic therapy to help with this. I will keep you updated as we move forward. Thank you very much for this kind referral. Please do not hesitate to contact me if you have any questions. documented in this encounter Plan of Treatment Upcoming Encounters Date Type Department Care Team (Late st Contact Info) Description 01/20/2024 9:30 AM EDT Office Visit Hematology/Oncology at [address] [phone] Miguelina Lucia APRN [facility] [place] [address] 02/27/2024 2:15 PM EDT Office Visit Dermatology at [place] [address] [facility] [place] [address] Eliel Vanessa MD [address], [place] [address] documented as of this encounter Visit Diagnoses Diagnosis Erectile dysfunction, unspecified erectile dysfunction type documented in this encounter Care Teams Bath Attendant Relationship Specialty Start Date End Date Michael Franco MD [address] [place] [address] PCP - General 04/03/10 05/15/21 documented as of this encounter
--- OUTSIDE RECORDS SUMMARY | 2024-01-09 01:25 | XMS_ITS | Encounter Summary ---
Author Organization [facility] [place] [address] Care Team Providers Care Staff Services Manager Name Role Phone Michael Franco MD Primary Care Provider [phone] Encounter Details Date Type Department Care Team (Latest Contact Info) Description 03/09/2019 12:15 PM EDT Laboratory Appointment Lab 3L [place] [address] Prostate cancer; Erectile dysfunction, unspecified erectile dysfunction [...] 9:30 AM EDT Office Visit Hematology/Oncology at [address] [phone] Miguelina Lucia APRN [facility] [place] [address] 02/27/2024 2:15 PM EDT Office Visit Dermatology at [address] [place] [phone] Eliel Vanessa MD [address] [facility] [address], [place] [address] documented as of this encounter Procedures Procedure Name Priority Date/Time Associated Diagnosis Comments HC VENIPUNCTURE Routine 03/09/2019 12:11 PM EDT Prostate cancer Erectile dysfunction, unspecified erectile dysfunction type documented in this encounter Results * PSA (03/09/2019 12:11 PM EDT) Prostate Specific Antigen (Ultrasensitiv e) 0.15 0.00 - 4.00 ng/mL [facility] Blood specimen (specimen) 03/09/2019 12:11 PM EDT 03/09/2019 12:32 PM EDT Narrative Resulting Agency Comment Spec In Lab Lula Dobson ETHANOL MAINTENANCE MECHANIC CHEMISTRY ORDERABLES [facility] [place] [address] documented in this encounter Visit Diagnoses Diagnosis Prostate cancer Malignant neoplasm of prostate Erectile dysfunction, unspecified erectile dysfunction type documented in this encounter Care Teams Staff Services Manager Relationship Specialty Start Date End Date Michael Franco MD [address] [place] [address] PCP - General 04/03/10 05/15/21 documented as of this encounter
--- OUTSIDE RECORDS SUMMARY | 2024-01-09 01:25 | XMS_ITS | Encounter Summary ---
Author Organization [facility] [place] [address] Care Team Providers Care Underwriting Service Representative Name Role Phone Desire Fountain APRN Primary Care Provider [phone] Encounter Details Date Type Department Care Team (Latest Contact Info) Description 08/30/2022 Travel Social History Tobacco Use Types Packs/Day [...] 9:30 AM EDT Office Visit Hematology/Oncology at [address] [phone] Miguelina Lucia APRN [facility] [place] [address] 02/27/2024 2:15 PM EDT Office Visit Dermatology at [address] [place] [phone] Eliel Vanessa MD [address], [place] [address] documented as of this encounter Visit Diagnoses Not on filedocumented in this encounter Care Teams Underwriting Service Representative Relationship Specialty Start Date End Date Александр, Desire Richard APRN PCP - General Internal Medicine 06/18/22 10/07/23 documented as of this encounter
--- OUTSIDE RECORDS SUMMARY | 2024-01-09 01:25 | XMS_ITS | Encounter Summary ---
[place] [address] Care Team Providers Care Fender Mechanic Apprentice Name Role Phone Vicky Curry APRN Primary Care Provider [phone] Encounter Details Date Type Department Care Team (Late st Contact Info) Description 05/16/2021 1:30 PM EST Office Visit Hematology/Oncology at [address] [phone] Kiera Zuluaga, RN Malignant neoplasm [...] Sign Reading Time Taken Comments Blood Pressure 157/65 05/16/2021 1:29 PM EST Pulse 66 05/16/2021 1:29 PM EST Temperature 36.1 ??C (97 ??F) 05/16/2021 1:29 PM EST Respiratory Rate 18 05/16/2021 1:29 PM EST Oxygen Saturation 98% 05/16/2021 1:29 PM EST Inhaled Oxygen Concentration - - Weight 110.1 kg (242 lb 12.8 oz) 05/16/2021 1:29 PM EST Height 185.7 cm (6' 1.11) 05/16/2021 1:29 PM ES T Body Mass Index 31.94 05/16/2021 1:29 PM EST documented in this encounter Progress Notes * Kiera Zuluaga, TAPE DUPLICATOR - 05/16/2021 1:30 PM EST Problem list 1. Prostate cancer [...] stenosis S/P Bovine Aortic valve replacement Interval history(05/16/21): Maribell returns to the [facility] today for follow-up of his prostate cancer. He is feeling well today. Denies any new illnesses or hospitalizations since his last visit. He saw his production assembly supervisor since we last saw him and everything looked well. Denies any joint pain or any other pain. Denies any urinary issues. No fevers, chills or infections. Energy level has been good. He has intermittent issues with his bowels- sometimes he has normal movements and sometimeshe has cramping and diarrhea- this is not new for him. No shortness of breath or edema. No other focal complaints. PMH: No interval changes since last visit [...] of the prostate Michelle pattern 3+4 Labs: Results for ARUNMARIBELL SR. ( ) as of 05/16/2021 13:19 Ref. Range 04/25/2021 12:08 WBC Latest Ref Range: 4.0 - 9.5 x10(3)/mcL 6.1 RBC Latest Ref Range: 4.58 - 5.54 x10(6)/mcL 4.91 Hemoglobin Latest Ref Range: 13.7 - 16.5 g/dL 16.4 Hematocrit Latest Ref Range: 40.5 - 48.5 % 47.2 MCV Latest Ref Range: 82.9 - 93.1 fL 96.1 (H) MCH Latest Ref Range: 27.5 - 32.1 pg 33.4 (H) MCHC Latest Ref Range: 32.0 - 35.7 g/dL 34.7 RDWSD Latest Ref Range: 36.0 - 45.0 fL 44.1 RDWCV Latest Ref Range: 11.4 - 13.8 % 12.4 Platelets Latest Ref Range: 145 - 357 x10(3)/mcL 152 MPV Latest Ref Range: 7.6 - 12.9 fL 10.4 nRBC % Auto Latest Units: % 0.0 nRBC Abs Auto Latest Ref Range: 0.000 - 0.000 x10(3)/mcL 0.000 Neutr Abs (ANC) Latest Ref Range: 1.70 - 6.10 x10(3)/mcL 4.14 Neutrophils % Latest Units: % 68.3 Immature Gran % Latest Units: % 0.20 Lymphocytes % Latest Units: % 19.3 Monocytes % Latest Units: % 8.9 Eosinophils % Latest Units: % 2.6 Basophils % Latest Units: % 0.7 Carolann Gran Abs Latest Ref Range: 0.00 - 0.04 x10(3)/mcL 0.01 Lymphocytes Abs Latest Ref Range: 0.9 - 3.2 x10(3)/mcL 1.2 Monocyte Abs Latest Ref Range: 0.3 - 0.9 x10(3)/mcL 0.5 Eosinophils Abs Latest Ref Range: 0.0 - 0.4 x10(3)/mcL 0.2 Basophils Abs Latest Ref Range: 0.0 - 0.1 x10(3)/mcL 0.0 Sodium Latest Ref Range: 135 - 145 mmol/L 143 Potassium Latest Ref Range: 3.5 - 5.0 mmol/L 4.4 Chloride Latest Ref Range: 98 - 107 mmol/L 106 CO2 Latest Ref Range: 22 - 31 mmol/L 27 Anion Gap Latest Ref Range: 5 - 15 mmol/L 10 BUN Latest Ref Range: 10 - 20 mg/dL 20 Creatinine Latest Ref Range: 0.80 - 1.50 mg/dL 0.74 (L) Estimated GFR Latest Ref Range: >=60 mL/min/1.73 m?? 88 Calcium Latest Ref Range: 8.5 - 10.5 mg/dL 10.0 Glucose Lvl Latest Ref Range: 65 - 199 mg/dL 104 Total Protein Latest Ref Range: 6.1 - 8.0 g/dL 7.5 Albumin Latest Ref Range: 3.2 - 5.2 g/dL 4.8 Total Bilirubin Latest Ref Range: 0.2 - 1.3 mg/dL 0.7 Alk Phos Latest Ref Range: 40 - 130 unit/L 72 AST Latest Ref Range: 0 - 39 unit/L 20 ALT Latest Ref Range: 0 - 55 unit/L 24 PSA Total (Ultrasensitive) Latest Ref Range: 0.00 - 4.00 ng/mL 0.31 11/07/20- WBC-6.4 Hgb/Hct-15.8/44.5 Plt-150 ANC-4.16 Na-141 K+-4.3 BUN/cr-19/0.91 Ca-9.5 Glucose-108 Albumin-4.6 T. Bili-0.7 Alk phos-72 AST-23 ALT-23 04/25/20- WBC-6.9 Hgb/Hct-15.6/45.5 Plt-167 ANC-4.36 Na-140 K+-3.8 BUN/Cr-18/0.99 Ca-9.1 Glucose-95 Albumin-4.6 T. Bili-0.5 Alk phos- 73 AST-23 ALT-23 10/26/19- WBC-6.3 Hgb/Hct-15.3/44.6 Plt-191 ANC-3.77 BUN-22 Cr-0.84 K+-4.1 Ca-9.6 LFTS unremarkable Date PSA Testosterone 05/16/21 0.31 11/07/20 0.20 04/25/20 0.20 10/26/19 0.17 Results for MARIBELL KAUFFMAN SR. ( ) as of 04/27/2019 14:17 Ref. 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 PSA in 10/21 was <0.03. Mr Kauffman's PSA has been slowly increasing. He denies any urinary issues. He denies any other pain or symptoms. He would like to keep monitoring his PSA every six months. If it double within a six month period we may [...] 9:30 AM EDT Office Visit Hematology/Oncology at [address] [phone] Miguelina Lucia APRN [facility] [place] [address] 02/27/2024 2:15 PM EDT Office Visit Dermatology at [place] [address] [place] [phone] Eliel Vanessa MD [address], [place] [address] documented as of this encounter Visit Diagnoses Diagnosis Malignant neoplasm of prostate documented in this encounter Care Teams Fender Mechanic Apprentice Relationship Specialty Start Date End Date Vicky Curry APRN [address] [place] [address] [address] [facility] [address] [place] [address] PCP - General Family Medicine 05/16/21 06/17/22 documented as of this encounter
--- OUTSIDE RECORDS SUMMARY | 2024-01-09 01:25 | XMS_ITS | Encounter Summary ---
[place] [address] Care Team Providers Care Chief Service Observer Name Role Phone Александр, Desiremanfred Richard APRN Primary Care Provider [phone]- [phone] Reason for Visit * Reason Comments Follow-up Encounter Details Date Type Department Care Team (Late st Contact Info) Description 09/20/2022 3:00 PM EDT Office Visit Dermatology at [address] [phone] Eliel Vanessa MD 580 [facility] [address] [place] (actinic keratosis); History of basal cell carcinoma Social History Tobacco Use Types Packs/Day Years [...] Progress Notes * Eliel Vanessa MD - 09/20/2022 3:00 PM EDT Problem: 1. 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 Actinic damage parietal scalp Marco Antonio follows up today with his Lauren. Physical examination reveals good healing of the right dorsal forearm site. He does have ongoing diffuse actinic damage of the bald parietal scalp. Assessment plan: Diffuse actinic damage bald parietal scalp 1. Begin 5-FU percent cream applying on a daily basis for 2 weeks then discontinue. If there is little to no reaction, treatment may go to 3 weeks. Discussed with them what constitutes a moderate reaction. They will call if they have questions 2. Return to clinic in 2 months for repeat check. CC: Desire Fountain APRN documented in this encounter Plan of Treatment Upcoming Encounters Date Type Department Care Team (Late st Contact Info) Description 01/20/2024 9:30 AM EDT Office Visit Hematology/Oncology at [address] [phone] Miguelina Lucia APRN [facility] [place] [address] 02/27/2024 2:15 PM EDT Office Visit Dermatology at [address] [phone] Eliel Vanessa MD 580 [facility], [place] [address] documented as of this encounter Visit Diagnoses Diagnosis AK (actinic keratosis) Actinic keratosis History of basal cell carcinoma Personal history of other malignant neoplasm of skin documented in this encounter Care Teams Chief Service Observer Relationship Specialty Start Date End Date Desire Fountain APRN PCP - General Internal Medicine 06/18/22 10/07/23 documented as of this encounter
--- OUTSIDE RECORDS SUMMARY | 2024-01-09 01:25 | XMS_ITS | Encounter Summary ---
Author Organization [facility] [place] [address] Care Team Providers Care Curriculum Director Name Role Phone Michael Franco MD Primary Care Provider [phone] Encounter Details Date Type Department Care Team (Late st Contact Info) Description 03/04/2018 Orders Only Hematology/Oncology at [address] [phone] Corey Parra RN Prostate cancer Social History Tobacco Use Types [...] AM EDT Office Visit Hematology/Oncology at [address] [phone] Miguelina Lucia APRN [facility] [place] [address] 02/27/2024 2:15 PM EDT Office Visit Dermatology at [place] [address] [place] [phone] Eliel Vanessa MD 580 [facility], [place] [address] documented as of this encounter Results * PSA (03/04/2018 12:35 PM EDT) Pathologist [facility] Prostate Specific Antigen (Ultrasensitiv e) 0.10 0.00 - 4.00 ng/mL [facility] Blood specimen (specimen) 03/04/2018 12:35 PM EDT 03/04/2018 12:41 PM EDT Narrative Resulting Agency Comment Spec In Lab Lula Dobson APRN CHEMISTRY ORDERABLES [facility] [place] [address] * (ABNORMAL) Comprehensive metabolic panel (non-fasting) (03/04/2018 12:35 PM EDT) Pathologist [facility] Glucose 104 65 - 199 mg/dL [facility] Comment:Diabetes: >=200 mg/d L plus symptoms Blood Urea Nitrogen 19 10 - 20 mg/dL [facility] Creatinine 0.75(L) 0.80 - 1.50 mg/dL [facility] Sodium 142 135 - 145 mmol/L [facility] Potassium 4.5 3.5 - 5.0 mmol/L [facility] Comment: Please note: ??Patients with WBC >100,000 may have falsely elevated Potassium levels. ??For accurate Potassium quantification in these patients send serum separator tube (gold top) for subsequent determinations. ??Contact the Clinical Chemistry Laboratory if there are any questions. Chloride 103 98 - 107 mmol/L [facility] Carbon Dioxide 26 22 - 31 mmol/L [facility] Anion Gap 13 5 - 15 mmol/L [facility] Calcium 9.6 8.5 - 10.5 mg/dL [facility] Protein, Total 7.4 6.1 - 8.0 gm/dL [facility] Albumin 4.6 3.2 - 5.2 gm/dL [facility] Aspartate Aminotransferase 23 0 - 39 unit/L [facility] Alanine Aminotransferase 22 0 - 55 unit/L [facility] Alkaline Phosphatase 58 40 - 120 unit/L [facility] Bilirubin, Total 0.6 0.2 - 1.3 mg/dL [facility] Est Glomerular Filtration Rate 89 >=60 mL/min/1. 73 m?? [facility] Comment: The eGFR was calculated using the CKD-EPI equation. As with all creatinine based estimates of kidney function, eGFR values calculated with the CKD-EPI equation are not accurate in patients with acute kidney failure, extremes of body mass or the acutely ill. [email or web address]/[email or web address] eGFR 103 >=60 mL/min/1. 73 m?? [facility] Comment: The eGFR was calculated using the CKD-EPI equation. As with all creatinine based estimates of kidney function, eGFR values calculated with the CKD-EPI equation are not accurate in patients with acute kidney failure, extremes of body mass or the acutely ill. [email or web address]/[facility] Blood specimen (specimen) 03/04/2018 12:35 PM EDT 03/04/2018 12:41 PM EDT Narrative Resulting Agency Comment Spec In Lab Lula Dobson APRN CHEMISTRY ORDERABLES [facility] [place] [address] documented in this encounter Visit Diagnoses Diagnosis Prostate cancer Malignant neoplasm of prostate documented in this encounter Care Teams Curriculum Director Relationship Specialty Start Date End Date Michael Franco MD [address] [place] [address] PCP - General 04/03/10 05/15/21 documented as of this encounter
--- OUTSIDE RECORDS SUMMARY | 2024-01-09 01:25 | XMS_ITS | Encounter Summary ---
Author Organization [facility] [place] [address] Care Team Providers Care Fly Fishing Guide Name Role Phone Desire Fountain APRN Primary Care Provider [phone] Encounter Details Date Type Department Care Team (Latest Contact Info) Description 01/14/2023 Travel Social History Tobacco Use Types Packs/Day [...] 9:30 AM EDT Office Visit Hematology/Oncology at [address] [phone] Miguelina Lucia APRN [facility] [place] [address] 02/27/2024 2:15 PM EDT Office Visit Dermatology at [address] [place] [phone] Eliel Vanessa MD [address], [place] [address] documented as of this encounter Visit Diagnoses Not on filedocumented in this encounter Care Teams Fly Fishing Guide Relationship Specialty Start Date End Date Александр, Desire Richard APRN PCP - General Internal Medicine 06/18/22 10/07/23 documented as of this encounter
--- OUTSIDE RECORDS SUMMARY | 2024-01-09 01:25 | XMS_ITS | Encounter Summary ---
[place] [address] Care Team Providers Care Electronic Sensing Equipment Assembler Name Role Phone Michael Franco MD Primary Care Provider [phone] Encounter Details Date Type Department Care Team (Latest Contact Info) Description 11/07/2020 10:40 AM EDT Laboratory Appointment Lab [address] [place] [address] Malignant neoplasm of prostate Social [...] 9:30 AM EDT Office Visit Hematology/Oncology at [address] [phone] Miguelina Lucia APRN [facility] [place] [address] 02/27/2024 2:15 PM EDT Office Visit Dermatology at [address] [place] [phone] Eliel Vanessa MD [address], [place] [address] documented as of this encounter Procedures Procedure Name Priority Date/Time Associated Diagnosis Comments HEMOGRAM STAT 11/07/2020 10:50 AM EDT Malignant neoplasm of prostate DIFFERENTIAL, AUTOMATED STAT 11/07/2020 10:50 AM EDT Malignant neoplasm of prostate HC CBC,PLT & AUTO DIFF STAT 10:50 AM EDT Malignant neoplasm of prostate HC PROSTATE SPECIFIC ANTIGEN STAT 11/07/2020 10:50 AM EDT Malignant neoplasm of prostate COMPREHENSIVE METABOLIC PANEL STAT 11/07/2020 10:50 AM EDT Malignant neoplasm of prostate documented in this encounter Results * Differential, Automated (11/07/2020 10:50 AM EDT) Neutrophil % 64.7 % [facility] Neutrophil Absolute 4.16 1.70 - 6.10 x10(3)/[facility] Lymph % 21.9 % [facility] Lymphocytes Abs 1.4 0.9 - 3.2 x10(3)/[facility] Monocyte % 9.3 % [facility] Monocyte Abs 0.6 0.3 - 0.9 x10(3)/[facility] Eos % 3.0 % [facility] Eosinophils Abs 0.2 0.0 - 0.4 x10(3)/[facility] Basophil % 0.9 % [facility] Baso Absolute 0.1 0.0 - 0.1 x10(3)/[facility] Immature Gran % 0.20 % [facility] Comment: Immature granulocytes(IG's)percentage and absolute count will include metamyelocytes, myelocytes, and promyelocytes. Blood smears from CBCs yielding IG's will be scanned manually for concordance. If this scan disagrees with the automated IG or if promyelocytes are noted, a manual differential will be performed. Immature Gran Absolute 0.01 0.00 - 0.04 x10(3)/mcL [facility] Blood 11/07/2020 10:5 0 AM EDT 11/07/2020 10:56 AM EDT Narrative Resulting Agency Comment Spec In Lab Ankur Doss MD HEMATOLOGY ORDERABLE S [facility] [place] [address] * (ABNORMAL) Hemogram (11/07/2020 10:50 AM EDT) White Blood Cell 6.4 4.0 - 9.5 x10(3)/mc L [facility] Red Blood Cell 4.66 4.58 - 5.54 x10(6)/mc L [facility] Hemoglobin 15.8 13.7 - 16.5 gm/dL [facility] Hematocrit 44.5 40.5 - 48.5 % [facility] Mean Cell Volume 95.5(H) 82.9 - 93.1 fL [facility] Mean Cell Hemoglobin 33.9(H) 27.5 - 32.1 pg [facility] Mean Cell Hemoglobin Concentration 35.5 32.0 - 35.7 gm/dL [facility] Platelet 150 145 - 357 x10(3)/mc L [facility] RDW Standard Deviation 44.4 36.0 - 45.0 [facility] RDW coefficient of variation 12.6 11.4 - 13.8 % [facility] Mean Platelet Volume 10.1 7.6 - 12.9 fL [facility] NRBC% auto 0.0 % [facility] NRBC Absolute 0.000 0.000 - 0.000 x10(3)/mc L [facility] Blood 11/07/2020 10:5 0 AM EDT 11/07/2020 10:56 AM EDT Narrative Resulting Agency Comment Spec In Lab Ankur Doss MD HEMATOLOGY ORDERABLE S [facility] [place] [address] * Comprehensive metabolic panel (non-fasting) (11/07/2020 10:50 AM EDT) Glucose 108 65 - 199 mg/dL [facility] Comment:Diabetes: >=200 mg/d L plus symptoms Blood Urea Nitrogen 19 10 - 20 mg/dL [facility] Creatinine 0.91 0.80 - 1.50 mg/dL [facility] Sodium 141 135 - 145 mmol/L [facility] Potassium 4.3 3.5 - 5.0 mmol/L [facility] Comment: Please note: ??Patients with WBC >100,000 may have falsely elevated Potassium levels. ??For accurate Potassium quantification in these patients send serum separator tube (gold top) for subsequent determinations. ??Contact the Clinical Chemistry Laboratory if there are any questions. Chloride 104 98 - 107 mmol/L [facility] Carbon Dioxide 26 22 - 31 mmol/L [facility] Anion Gap 11 5 - 15 mmol/L [facility] Calcium 9.5 8.5 - 10.5 mg/dL [facility] Protein, Total 7.4 6.1 - 8.0 gm/dL [facility] Albumin 4.6 3.2 - 5.2 gm/dL [facility] Aspartate Aminotransferase 23 0 - 39 unit/L [facility] Alanine Aminotransferase 23 0 - 55 unit/L [facility] Alkaline Phosphatase 72 40 - 130 unit/L [facility] Bilirubin, Total 0.7 0.2 - 1.3 mg/dL [facility] Est Glomerular Filtration Rate 80 >=60 mL/min/1. 73 m?? [facility] Comment: This patient? s estimated glomerular filtration rate (eGFR) is between 80 mL/min/1.73 m2 (patients with less muscle mass per kg body weight) and 93 mL/min/1.73 m2 (patients with more muscle mass [...] and symptoms in addition to eGFR. Blood 11/07/2020 10:5 0 AM EDT 11/07/2020 10:57 AM EDT Narrative Resulting Agency Comment Spec In Lab Ankur Doss MD CHEMISTRY ORDERABLES Performing Organization Address [facility] Co de Phone Number [facility] [place] [address] * PSA (Ultrasensitive) (11/07/2020 10:50 AM EDT) Prostate Specific Antigen (Ultrasensitive ) 0.20 0.00 - 4.00 ng/mL [facility] Comment: PLEASE NOTE: The above reference interval is intended for healthy males with an intact prostate. Values within this reference interval may indicate recurrence in men who have undergone radical prostatectomy. Blood 11/07/2020 10:5 0 AM EDT 11/07/2020 10:57 AM EDT Narrative Resulting Agency Comment Spec In Lab Ankur Doss MD CHEMISTRY ORDERABLES Performing Organization Address [facility] Co de Phone Number [facility] [place] [address] documented in this encounter Visit Diagnoses Diagnosis Malignant neoplasm of prostate documented in this encounter Care Teams Electronic Sensing Equipment Assembler Relationship Specialty Start Date End Date Michael Franco MD [address] [place] [address] [address] [place] [address] PCP - General 04/03/10 05/15/21 documented as of this encounter
--- OUTSIDE RECORDS SUMMARY | 2024-01-09 01:25 | XMS_ITS | Encounter Summary ---
Author Organization [facility] [place] [address] Care Team Providers Care Plant Supervisor Name Role Phone Desire Fountain APRN Primary Care Provider [phone]- [phone] Encounter Details Date Type Department Care Team (Latest Contact Info) Description 09/20/2022 Travel Social History Tobacco Use Types Packs/Day [...] AM EDT Office Visit Hematology/Oncology at [address] [phone] Miguelina Lucia APRN [facility] [place] [address] 02/27/2024 2:15 PM EDT Office Visit Dermatology at [address] [place] [phone] Eliel Vanessa MD [address], [place] [address] documented as of this encounter Visit Diagnoses Not on filedocumented in this encounter Care Teams Plant Supervisor Relationship Specialty Start Date End Date Александр, Desire Richard APRN PCP - General Internal Medicine 06/18/22 10/07/23 documented as of this encounter
--- OUTSIDE RECORDS SUMMARY | 2024-01-09 01:25 | XMS_ITS | Encounter Summary ---
Author Organization [facility] [place] [address] Care Team Providers Care Air Cargo Ground Crew Supervisor Name Role Phone Desire Fountain APRN Primary Care Provider [phone]- [phone] Encounter Details Date Type Department Care Team (Latest Contact Info) Description 12/19/2022 Travel Social History Tobacco Use Types Packs/Day [...] 9:30 AM EDT Office Visit Hematology/Oncology at [address] [phone] Miguelina Lucia APRN [facility] [place] [address] 02/27/2024 2:15 PM EDT Office Visit Dermatology at [address] [place] [phone] Eliel Vanessa MD [address], [place] [address] documented as of this encounter Visit Diagnoses Not on filedocumented in this encounter Care Teams Air Cargo Ground Crew Supervisor Relationship Specialty Start Date End Date Александр, Desire Richard APRN PCP - General Internal Medicine 06/18/22 10/07/23 documented as of this encounter
--- OUTSIDE RECORDS SUMMARY | 2024-01-09 01:25 | XMS_ITS | Encounter Summary ---
[place] [address] Care Team Providers Care Hat Body Inspector Name Role Phone Александр, Desire Richard APRN Primary Care Provider [phone]- [phone] Encounter Details Date Type Department Care Team (Late st Contact Info) Description 09/13/2022 Telephone Dermatology at [address] [phone] Breanne Treadwell RN Social History Tobacco Use Types Packs/Day Years [...] encounter Miscellaneous Notes * Telephone Encounter - Breanne Treadwell RN - 09/13/2022 1:08 PM EDT Patient called and informed of his pathology results. Patient had a shave biopsy right dorsal forearm on 08/30/2022. Diagnosis: Basal cell carcinoma. Per Dr. Vanessa's recommendation, no further treatment is needed. Patient to return to the clinic for a follow up appointment on 09/20/2022. Patient informed the above and stated that he understood. documented in this encounter Plan of Treatment Upcoming Encounters Date Type Department Care Team (Late st Contact Info) Description 01/20/2024 9:30 AM EDT Office Visit Hematology/Oncology at [address] [phone] Miguelina Lucia APRN [facility] [place] [address] 02/27/2024 2:15 PM EDT Office Visit Dermatology at [place] [address] [place] [address] Eliel Vanessa MD [address], [place] [address] documented as of this encounter Visit Diagnoses Not on filedocumented in this encounter Care Teams Hat Body Inspector Relationship Specialty Start Date End Date Александр, Desire Richard APRN PCP - General Internal Medicine 06/18/22 10/07/23 documented as of this encounter
--- OUTSIDE RECORDS SUMMARY | 2024-01-09 01:25 | XMS_ITS | Encounter Summary ---
[place] [address] Care Team Providers Care Field Reviewer Name Role Phone Michael Franco MD Primary Care Provider Encounter Details Date Type Department Care Team (Latest Contact Info) Description 08/18/2018 11:15 AM EDT Laboratory Appointment Lab 3L [place] [address] Prostate cancer Social History Tobacco Use Types [...] AM EDT Office Visit Hematology/Oncology at [address] [phone] Miguelina Lucia APRN [facility] [place] [address] 02/27/2024 2:15 PM EDT Office Visit Dermatology at [address] [place] [phone] Eliel Vanessa MD [address], [place] [address] documented as of this encounter Procedures Procedure Name Priority Date/Time Associated Diagnosis Comments HEMOGRAM Routine 08/18/2018 11:20 AM EDT Prostate cancer DIFFERENTIAL, AUTOMATED Routine 08/18/2018 11:20 AM EDT Prostate cancer CBC (WITH DIFF) Routine 08/18/2018 11:20 AM EDT Prostate cancer PSA (ULTRASENSITIVE) Routine 08/18/2018 11:20 AM EDT Prostate cancer COMPREHENSIVE METABOLIC PANEL Routine 08/18/2018 11:20 AM EDT Prostate cancer documented in this encounter Results * Differential, Automated (08/18/2018 11:20 AM EDT) Neutrophil % 63.0 % [facility] Neutrophil Absolute 4.28 1.70 - 6.10 x10(3)/[facility] Lymph % 23.5 % [facility] Lymphocytes Abs 1.6 0.9 - 3.2 x10(3)/[facility] Monocyte % 9.0 % [facility] Monocyte Abs 0.6 0.3 - 0.9 x10(3)/[facility] Eos % 3.5 % [facility] Eosinophils Abs 0.2 0.0 - 0.4 x10(3)/[facility] Basophil % 0.7 % [facility] Baso Absolute 0.0 0.0 - 0.1 x10(3)/[facility] Immature Gran % 0.30 % [facility] Comment: Immature granulocytes(IG's)percentage and absolute count will include metamyelocytes, myelocytes, and promyelocytes. Blood smears from CBCs yielding IG's will be scanned manually for concordance. If this scan disagrees with the automated IG or if promyelocytes are noted, a manual differential will be performed. Immature Gran Absolute 0.02 0.00 - 0.04 x10(3)/[facility] Blood specimen (specimen) 08/18/2018 11:20 AM EDT 08/18/2018 11:36 AM EDT Narrative Resulting Agency Comment Spec In Lab Nisha Marlow MULTIMEDIA ASSISTANT HEMATOLOGY ORDERABLE S [facility] [place] [address] * (ABNORMAL) Hemogram (08/18/2018 11:20 AM EDT) White Blood Cell 6.8 4.0 - 9.5 x10(3)/[facility] Red Blood Cell 4.74 4.58 - 5.54 x10(6)/[facility] Hemoglobin 15.6 13.7 - 16.5 gm/dL [facility] Hematocrit 46.8 40.5 - 48.5 % [facility] Mean Cell Volume 98.7(H) 82.9 - 93.1 [facility] Mean Cell Hemoglobin 32.9(H) 27.5 - 32.1 pg [facility] Mean Cell Hemoglobin Concentration 33.3 32.0 - 35.7 gm/dL [facility] Platelet 177 145 - 357 x10(3)/[facility] RDW Standard Deviation 45.6(H) 36.0 - 45.0 [facility] RDW coefficient of variation 12.6 11.4 - 13.8 % [facility] Mean Platelet Volume 10.7 7.6 - 12.9 [facility] NRBC% auto 0.0 % [facility] NRBC Absolute 0.000 0.000 - 0.000 x10(3)/[facility] Blood specimen (specimen) 08/18/2018 11:20 AM EDT 08/18/2018 11:36 AM EDT Narrative Resulting Agency Comment Spec In Lab Nisha Lior Marlow MULTIMEDIA ASSISTANT HEMATOLOGY ORDERABLE S [facility] [place] [address] * (ABNORMAL) Comprehensive metabolic panel (non-fasting) (08/18/2018 11:20 AM EDT) Glucose 101 65 - 199 mg/dL [facility] Comment:Diabetes: >=200 mg/d L plus symptoms Blood Urea Nitrogen 17 10 - 20 mg/dL [facility] Creatinine 0.78(L) 0.80 - 1.50 mg/dL [facility] Sodium 143 135 - 145 mmol/L [facility] Potassium 4.3 3.5 - 5.0 mmol/L [facility] Comment: Please note: ??Patients with WBC >100,000 may have falsely elevated Potassium levels. ??For accurate Potassium quantification in these patients send serum separator tube (gold top) for subsequent determinations. ??Contact the Clinical Chemistry Laboratory if there are any questions. Chloride 103 98 - 107 mmol/L [facility] Carbon Dioxide 28 22 - 31 mmol/L [facility] Anion Gap 12 5 - 15 mmol/L [facility] Calcium 9.7 8.5 - 10.5 mg/dL [facility] Protein, Total 7.6 6.1 - 8.0 gm/dL [facility] Albumin 4.6 3.2 - 5.2 gm/dL [facility] Aspartate Aminotransferase 21 0 - 39 unit/L [facility] Alanine Aminotransferase 25 0 - 55 unit/L [facility] Alkaline Phosphatase 58 40 - 120 unit/L [facility] Bilirubin, Total 0.6 0.2 - 1.3 mg/dL [facility] Est Glomerular Filtration Rate 88 >=60 mL/min/1. 73 m?? [facility] Comment: The eGFR was calculated using the CKD-EPI equation. As with all creatinine based estimates of kidney function, eGFR values calculated with the CKD-EPI equation are not accurate in patients with acute kidney failure, extremes of body mass or the acutely ill. [email or web address] eGFR 102 >=60 mL/min/1. 73 m?? [facility] Comment: The eGFR was calculated using the CKD-EPI equation. As with all creatinine based estimates of kidney function, eGFR values calculated with the CKD-EPI equation are not accurate in patients with acute kidney failure, extremes of body mass or the acutely ill. [email or web address] Blood specimen (specimen) 08/18/2018 11:20 AM EDT 08/18/2018 11:36 AM EDT Narrative Resulting Agency Comment Spec In Lab Nisha Marlow APRN CHEMISTRY ORDERABLES Performing Organization Address City/[facility]/ZIP Co de Phone Number [facility] [address] * PSA (08/18/2018 11:20 AM EDT) Prostate Specific Antigen (Ultrasensitiv e) 0.08 0.00 - 4.00 ng/mL [facility] Blood specimen (specimen) 08/18/2018 11:20 AM EDT 08/18/2018 11:36 AM EDT Narrative Resulting Agency Comment Spec In Lab Nisha Marlow APRN CHEMISTRY ORDERABLES Performing Organization Address City/[facility]/ZIP Co de Phone Number [facility] [place] [address] documented in this encounter Visit Diagnoses Diagnosis Prostate cancer Malignant neoplasm of prostate documented in this encounter Care Teams Field Reviewer Relationship Specialty Start Date End Date Michael Franco MD [address] [place] [address] PCP - General 04/03/10 05/15/21 documented as of this encounter
--- OUTSIDE RECORDS SUMMARY | 2024-01-09 01:25 | XMS_ITS | Encounter Summary ---
[place] [address] Care Team Providers Care Warehouse Delivery Driver Name Role Phone AntoinetteToyVickymarni Cano APRN Primary Care Provider [phone] Encounter Details Date Type Department Care Team (Latest Contact Info) Description 11/21/2021 11:15 AM EDT Laboratory Appointment Lab [address] [address] Malignant neoplasm of prostate Social [...] AM EDT Office Visit Hematology/Oncology at [address] [phone] [facility] [place] [place] [address] 02/27/2024 2:15 PM EDT Office Visit Dermatology at [address] [place] [phone] Eliel Vanessa MD [address], [place] [address] documented as of this encounter Procedures Procedure Name Priority Date/Time Associated Diagnosis Comments HEMOGRAM STAT 11/21/2021 11:18 AM EDT Malignant neoplasm of prostate DIFFERENTIAL, AUTOMATED STAT 11/21/2021 11:18 AM EDT Malignant neoplasm of prostate HC CBC,PLT & AUTO DIFF STAT 11:18 AM EDT Malignant neoplasm of prostate HC VENIPUNCTURE STAT 11/21/2021 11:18 AM EDT Malignant neoplasm of prostate COMPREHENSIVE METABOLIC PANEL STAT 11/21/2021 11:18 AM EDT Malignant neoplasm of prostate documented in this encounter Results * Differential, Automated (11/21/2021 11:18 AM EDT) Neutrophil % 69.1 % [facility] Neutrophil Absolute 4.71 1.70 - 6.10 x10(3)/[facility] Lymph % 19.2 % [facility] Lymphocytes Abs 1.3 0.9 - 3.2 x10(3)/[facility] Monocyte % 8.5 % [facility] Monocyte Abs 0.6 0.3 - 0.9 x10(3)/[facility] Eos % 2.2 % [facility] Eosinophils Abs 0.2 0.0 - 0.4 x10(3)/[facility] Basophil % 0.7 % [facility] Baso Absolute 0.0 0.0 - 0.1 x10(3)/[facility] Immature Gran % 0.30 % [facility] Comment: Immature granulocytes(IG's)percentage and absolute count will include metamyelocytes, myelocytes, and promyelocytes. Blood smears from CBCs yielding IG's will be scanned manually for concordance. If this scan disagrees with the automated IG or if promyelocytes are noted, a manual differential will be performed. Immature Gran Absolute 0.02 0.00 - 0.04 x10(3)/mcL [facility] Blood 11/21/2021 11:1 8 AM EDT 11/21/2021 11:30 AM EDT Narrative Resulting Agency Comment Spec In Lab Nisha Marlow BANKING CONSULTANT HEMATOLOGY ORDERABLE S [facility] [place] [address] * (ABNORMAL) Hemogram (11/21/2021 11:18 AM EDT) White Blood Cell 6.8 4.0 - 9.5 x10(3)/mc L [facility] Red Blood Cell 4.54(L) 4.58 - 5.54 x10(6)/mc L [facility] Hemoglobin 15.4 13.7 - 16.5 g/dL [facility] Hematocrit 44.0 40.5 - 48.5 % [facility] Mean Cell Volume 96.9(H) 82.9 - 93.1 fL [facility] Mean Cell Hemoglobin 33.9(H) 27.5 - 32.1 pg [facility] Mean Cell Hemoglobin Concentration 35.0 32.0 - 35.7 g/dL [facility] Platelet 148 145 - 357 x10(3)/mc L [facility] RDW Standard Deviation 44.5 36.0 - 45.0 [facility] RDW coefficient of variation 12.4 11.4 - 13.8 % [facility] Mean Platelet Volume 10.0 7.6 - 12.9 fL [facility] NRBC% auto 0.0 % [facility] NRBC Absolute 0.000 0.000 - 0.000 x10(3)/mc L [facility] Blood 11/21/2021 11:1 8 AM EDT 11/21/2021 11:30 AM EDT Narrative Resulting Agency Comment Spec In Lab Nisha Tinajero Marlow BANKING CONSULTANT HEMATOLOGY ORDERABLE S [facility] [place] [address] * Comprehensive metabolic panel (non-fasting) (11/21/2021 11:18 AM EDT) Glucose 103 65 - 199 mg/dL [facility] Comment:Diabetes: >=200 mg/d L plus symptoms Blood Urea Nitrogen 17 10 - 20 mg/dL [facility] Creatinine 0.83 0.80 - 1.50 mg/dL [facility] Sodium 142 135 - 145 mmol/L [facility] Carbon Dioxide 27 22 - 31 mmol/L [facility] Anion Gap 12 5 - 15 mmol/L [facility] Calcium 9.6 8.5 - 10.5 mg/dL [facility] Protein, Total 7.3 6.1 - 8.0 g/dL [facility] Albumin 4.6 3.2 - 5.2 g/dL [facility] Aspartate Aminotransferase 21 0 - 39 unit/L [facility] Alanine Aminotransferase 23 0 - 55 unit/L [facility] Alkaline Phosphatase 66 40 - 130 unit/L [facility] Bilirubin, Total 0.7 0.2 - 1.3 mg/dL [facility] Est Glomerular Filtration Rate 88 >=60 mL/min/1. 73 m?? [facility] Comment: This patient's estimated GFR was [...] and symptoms in addition to eGFR. Blood 11/21/2021 11:1 8 AM EDT 11/21/2021 11:30 AM EDT Narrative Resulting Agency Comment Spec In Lab Nisha Marlow APRN CHEMISTRY ORDERABLES Performing Organization Address [facility] Co de Phone Number [facility] [place] [address] * PSA (Ultrasensitive) (11/21/2021 11:18 AM EDT) Prostate Specific Antigen (Ultrasensitive) 0.40 0.00 - 4.00 ng/mL [facility] Comment: PLEASE NOTE: The above reference interval is intended for healthy males with an intact prostate. Values within this reference interval may indicate recurrence in men who have undergone radical prostatectomy. This result was generated using a Ramon Kristel immunoassay. ??Results obtained from other methods or manufacturers cannot be used interchangeably with this method. Blood 11/21/2021 11:1 8 AM EDT 11/21/2021 11:30 AM EDT Narrative Resulting Agency Comment Spec In Lab Nisha Marlow APRN CHEMISTRY ORDERABLES Performing Organization Address [facility] Co de Phone Number [facility] [place] [address] documented in this encounter Visit Diagnoses Diagnosis Malignant neoplasm of prostate documented in this encounter Care Teams Warehouse Delivery Driver Relationship Specialty Start Date End Date Vicky Curry APRN [address] [place] [address] PCP - General Family Medicine 05/16/21 2 documented as of this encounter
--- OUTSIDE RECORDS SUMMARY | 2024-01-09 01:25 | XMS_ITS | Encounter Summary ---
Author Organization [facility] Address [facility] [place] [address] Care Team Providers Care Forest Economics Professor Name Role Phone Michael Franco MD Primary Care Provider [phone] Reason for Visit * Reason Comments Follow-up Encounter Details Date Type Department Care Team (Late st Contact Info) Description 04/20/2019 4:00 PM EST Office Visit Hematology/Oncology at [address] [phone] Ankur Doss MD [facility] HEMATOLOGY [place] [address] Malignant neoplasm of prostate (Primary Dx) Social [...] Sign Reading Time Taken Comments Blood Pressure 155/87 04/20/2019 4:40 PM EST Pulse 61 04/20/2019 4:40 PM EST Temperature 36.9 ??C (98.4 ??F) 04/20/2019 4:40 PM ES T Respiratory Rate 16 04/20/2019 4:40 PM EST Oxygen Saturation 99% 04/20/2019 4:40 PM EST Inhaled Oxygen Concentration - - Weight 113.4 kg (250 lb) 04/20/2019 4:40 PM EST Height 185.4 cm (6' 0.99) 04/20/2019 4:40 PM ES T Body Mass Index 32.99 04/20/2019 4:40 PM EST documented in this encounter Progress Notes * Ankur Doss MD - 04/20/2019 4:00 PM EST Problem list 1. Prostate cancer [...] Bovine Aortic valve replacement Interval history: Maribell comes in today for follow-up on his prostate cancer. He is feeling well. Denies any new pain.. PMH: No interval changes since last visit Social and family history: No interval changes since last visit Review of Systems Constitution: Negative. HENT: Negative. Eyes: Negative. Cardiovascular: Negative. Respiratory: Negative. Skin: Actinic keratoses bothersome on top of scalp- sees Derm Musculoskeletal: Negative. Gastrointestinal: Negative. Genitourinary: Positive for frequency, nocturia and urgency. Does note ED since prostatectomy in 2006. Neurological: Negative. Psychiatric/Behavioral: Negative. Physical Exam Constitutional: [...] prostate Michelle pattern 3+4 Labs: Results for MARIBELL KAUFFMAN SR. ( ) as of 04/27/2019 14:17 Ref. 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 PSA is 0.15, stable. Maribell is doing exceptionally well mpore than 7yrs out. PSA remains stable and low. RTC 6mo for fwup. Plan: 1. Next visit in 6 months with blood work at [facility]. The plan was discussed with the patient in details. All questions were answered to patient satisfaction documented in this encounter Plan of Treatment Upcoming Encounters Date Type Department Care Team (Late st Contact Info) Description 01/20/2024 9:30 AM EDT Office Visit Hematology/Oncology at [address] [phone] Miguelina Lucia APRN [facility] [address] [place] [address] 02/27/2024 2:15 PM EDT Office Visit Dermatology at [place] [address] [facility] [place] [phone] Eliel Vanessa MD [address], [place]HA[place] [address] documented as of this encounter Results * (ABNORMAL) Comprehensive metabolic panel (non-fasting) (10/26/2019 10:02 AM EDT) Glucose 104 65 - 199 mg/dL [facility] Comment:Diabetes: >=200 mg/d L plus symptoms Blood Urea Nitrogen 22(H) 10 - 20 mg/dL [facility] Creatinine 0.84 0.80 - 1.50 mg/dL [facility] Sodium 142 135 - 145 mmol/L [facility] Potassium 4.1 3.5 - 5.0 mmol/L [facility] Comment: Please note: ??Patients with WBC >100,000 may have falsely elevated Potassium levels. ??For accurate Potassium quantification in these patients send serum separator tube (gold top) for subsequent determinations. ??Contact the Clinical Chemistry Laboratory if there are any questions. Chloride 105 98 - 107 mmol/L [facility] Carbon Dioxide 25 22 - 31 mmol/L [facility] Anion Gap 12 5 - 15 mmol/L [facility] Calcium 9.6 8.5 - 10.5 mg/dL [facility] Protein, Total 7.6 6.1 - 8.0 gm/dL [facility] Albumin 4.8 3.2 - 5.2 gm/dL [facility] Aspartate Aminotransferase 23 0 - 39 unit/L [facility] Alanine Aminotransferase 23 0 - 55 unit/L [facility] Alkaline Phosphatase 70 40 - 130 unit/L [facility] Bilirubin, Total 0.5 0.2 - 1.3 mg/dL [facility] Est Glomerular Filtration Rate 84 >=60 mL/min/1. 73 m?? [facility] Comment: The eGFR was calculated using the CKD-EPI equation. As with all creatinine based estimates of kidney function, eGFR values calculated with the CKD-EPI equation are not accurate in patients with acute kidney failure, extremes of body mass or the acutely ill. [email or web address] eGFR 98 >=60 mL/min/1. 73 m?? [facility] Comment: The eGFR was calculated using the CKD-EPI equation. As with all creatinine based estimates of kidney function, eGFR values calculated with the CKD-EPI equation are not accurate in patients with acute kidney failure, extremes of body mass or the acutely ill. [email or web address] Blood specimen (specimen) 10/26/2019 10:02 AM EDT 10/26/2019 10:08 AM EDT Narrative Resulting Agency Comment Spec In Lab Ankur Doss MD CHEMISTRY ORDERABLES Performing Organization Address City/[facility] Co de Phone Number [facility] [place] [address] * PSA (Ultrasensitive) (10/26/2019 10:02 AM EDT) Prostate Specific Antigen (Ultrasensitiv e) 0.17 0.00 - 4.00 ng/mL [facility] Blood specimen (specimen) 10/26/2019 10:02 AM EDT 10/26/2019 10:08 AM EDT Narrative Resulting Agency Comment Spec In Lab Ankur Doss MD CHEMISTRY ORDERABLES Performing Organization Address [facility] Co de Phone Number [facility] [place] [address] documented in this encounter Visit Diagnoses Diagnosis Malignant neoplasm of prostate- Primary documented in this encounter Care Teams Forest Economics Professor Relationship Specialty Start Date End Date Michael Franco MD [address] [facility] [address] [place] [address] PCP - General 04/03/10 05/15/21 documented as of this encounter
--- OUTSIDE RECORDS SUMMARY | 2024-01-09 01:25 | XMS_ITS | Encounter Summary ---
Author Organization [facility] [place] [address] Care Team Providers Care Finger Buffs Assembler Name Role Phone Desire Fountain APRN Primary Care Provider [phone] Encounter Details Date Type Department Care Team (Latest Contact Info) Description 07/16/2022 Travel Social History Tobacco Use Types Packs/Day [...] AM EDT Office Visit Hematology/Oncology at [address] [phone] Miguelina Lucia APRN [facility] [address] 02/27/2024 2:15 PM EDT Office Visit Dermatology at [address] [place] [phone] Eliel Vanessa MD [address], [place] [address] documented as of this encounter Visit Diagnoses Not on filedocumented in this encounter Care Teams Finger Buffs Assembler Relationship Specialty Start Date End Date Александр, Desire Richard APRN PCP - General Internal Medicine 06/18/22 10/07/23 documented as of this encounter
--- OUTSIDE RECORDS SUMMARY | 2024-01-09 01:25 | XMS_ITS | Encounter Summary ---
Author Organization [facility] [place] [address] Care Team Providers Care Flat Drier Name Role Phone AntoinetteToyVickymarni Cano APRN Primary Care Provider [phone] Encounter Details Date Type Department Care Team (Late st Contact Info) Description 11/27/2021 11:00 AM EDT Office Visit Hematology/Oncology at [address] [phone] Ankur Doss MD [facility] [address] [place] [address] Malignant neoplasm of prostate Social History Tobacco [...] Sign Reading Time Taken Comments Blood Pressure 155/69 11/27/2021 11:06 AM EDT Pulse 64 11/27/2021 11:06 AM EDT Temperature 36.7 ??C (98.1 ??F) 11/27/2021 11:06 AM E DT Respiratory Rate 18 11/27/2021 11:06 AM EDT Oxygen Saturation 97% 11/27/2021 11:06 AM EDT Inhaled Oxygen Concentration - - Weight 102.5 kg (226 lb) 11/27/2021 11:06 AM EDT Height 185.4 cm (6' 1) 11/27/2021 11:06 AM EDT Body Mass Index 29.82 11/27/2021 11:06 AM EDT documented in this encounter Patient Instructions * Patient Instructions* Nisha Marlow APRN - 11/27/2021 11:00 AM EDT He will return in 6 months with labs prior documented in this encounter Progress Notes * Nisha Marlow APRN - 11/27/2021 11:00 AM EDT Problem list 1. Prostate cancer Diagnosed in 2006 with a PSA of 4.8. He underwent laparoscopic prostatectomy. He was found of Peck's 7 with perineural invasion but no extracapsular [...] S/P Bovine Aortic valve replacement Interval history 11/27/21 Marco Antonio returns for routine followup of his prostate cancer. He continues to feel well. He has not had any new illnesses or hospitalizations. His chemical checker follows him on a regular basis. He has been having issues with his blood pressure medicine. The original dose was too much for him so he has been tapering it slowly. He experienced light headedness and double or triple vision at times. He also felt off balance. He is now at 5 mg daily of lisinopril. He no longer has these symptoms. He has also lost some weight 16 lbs. He has cut back on his portions and feels better. This was intentional. ROS is otherwise negative. Interval history(05/16/21): Maribell returns to the [facility] today for follow-up of his prostate cancer. He is feeling well today. Denies any new illnesses or hospitalizations since his last visit. He saw his chemical checker since we last saw him and everything [...] stones. Neurological: Negative. Psychiatric/Behavioral: Negative. Physical Exam Temp: [36.7 ??C (98.1 ??F)] Heart Rate: [64] Resp: [18] BP: (155)/(69) SpO2: [97 %] Heart Rate from SpO2: -- Constitutional: He is oriented to person, place, [...] normal. Pathology: 09/30/2006 Adenocarcinoma of the prostate Peck pattern 3+4 Labs: Latest Reference Range & Units 11/21/21 11:18 WBC 4.0 - 9.5 x10(3)/mcL 6.8 RBC 4.58 - 5.54 x10(6)/mcL 4.54 (L) Hemoglobin 13.7 - 16.5 g/dL 15.4 Hematocrit 40.5 - 48.5 % 44.0 MCV 82.9 - 93.1 fL 96.9 (H) MCH 27.5 - 32.1 pg 33.9 (H) MCHC 32.0 - 35.7 g/dL 35.0 RDWSD 36.0 - 45.0 fL 44.5 RDWCV 11.4 - 13.8 % 12.4 Platelets 145 - 357 x10(3)/mcL 148 MPV 7.6 - 12.9 fL 10.0 nRBC % Auto % 0.0 nRBC Abs Auto 0.000 - 0.000 x10(3)/mcL 0.000 Neutr Abs (ANC) 1.70 - 6.10 x10(3)/mcL 4.71 Neutrophils % % 69.1 Immature Gran % % 0.30 Lymphocytes % % 19.2 Monocytes % % 8.5 Eosinophils % % 2.2 Basophils % % 0.7 Carolann Gran Abs 0.00 - 0.04 x10(3)/mcL 0.02 Lymphocytes Abs 0.9 - 3.2 x10(3)/mcL 1.3 Monocyte Abs 0.3 - 0.9 x10(3)/mcL 0.6 Eosinophils Abs 0.0 - 0.4 x10(3)/mcL 0.2 Basophils Abs 0.0 - 0.1 x10(3)/mcL 0.0 Sodium 135 - 145 mmol/L 142 Potassium 3.5 - 5.0 mmol/L 4.3 Chloride 98 - 107 mmol/L 103 CO2 22 - 31 mmol/L 27 Anion Gap 5 - 15 mmol/L 12 BUN 10 - 20 mg/dL 17 Creatinine 0.80 - 1.50 mg/dL 0.83 Estimated GFR >=60 mL/min/1.73 m?? 88 Calcium 8.5 - 10.5 mg/dL 9.6 Glucose Lvl 65 - 199 mg/dL 103 Total Protein 6.1 - 8.0 g/dL 7.3 Albumin 3.2 - 5.2 g/dL 4.6 Total Bilirubin 0.2 - 1.3 mg/dL 0.7 Alk Phos 40 - 130 unit/L 66 AST 0 - 39 unit/L 21 ALT 0 - 55 unit/L 23 PSA Total (Ultrasensitive) 0.00 - 4.00 ng/mL 0.40 (L): Data is abnormally low (H): Data is abnormally high 11/07/20- WBC-6.4 Hgb/Hct-15.8/44.5 Plt-150 ANC-4.16 Na-141 K+-4.3 BUN/cr-19/0.91 Ca-9.5 Glucose-108 Albumin-4.6 T. Bili-0.7 Alk phos-72 AST-23 ALT-23 04/25/20- WBC-6.9 Hgb/Hct-15.6/45.5 Plt-167 ANC-4.36 Na-140 K+-3.8 BUN/Cr-18/0.99 Ca-9.1 Glucose-95 Albumin-4.6 T. Bili-0.5 Alk phos- 73 AST-23 ALT-23 10/26/19- WBC-6.3 Hgb/Hct-15.3/44.6 Plt-191 ANC-3.77 BUN-22 Cr-0.84 K+-4.1 Ca-9.6 LFTS unremarkable Date PSA Testosterone 11/21/21 0.40 05/16/21 0.31 11/07/20 0.20 04/25/20 [...] 9:30 AM EDT Office Visit Hematology/Oncology at [address] [phone] Miguelina Lucia APRN [facility] [place] [address] 02/27/2024 2:15 PM EDT Office Visit Dermatology at [place] [address] [facility] [place] [phone] Eliel Vanessa MD [address], [place] [address] documented as of this encounter Results * PSA (Ultrasensitive) (05/30/2022 10:11 AM EST) Prostate Specific Antigen (Ultrasensitive) 0.35 0.00 - 4.00 ng/mL [facility] Comment: PLEASE NOTE: The above reference [...] In Lab Nisha Marlow APRN CHEMISTRY ORDERABLES [facility] [place] [address] * Comprehensive metabolic panel (non-fasting) (05/30/2022 10:11 AM EST) Glucose 103 65 - 199 mg/dL [facility] Comment:Diabetes: >=200 mg/d L plus symptoms Blood Urea Nitrogen 19 10 - 20 mg/dL [facility] Creatinine 0.82 0.80 - 1.50 mg/dL [facility] Sodium 141 135 - 145 mmol/L [facility] Potassium 4.3 3.5 - 5.0 mmol/L [facility] Comment: Please note: ??Patients with WBC >100,000 may have falsely elevated Potassium levels. ??For accurate Potassium quantification in these patients send serum separator tube (gold top) for subsequent determinations. ??Contact the Clinical Chemistry Laboratory if there are any questions. Chloride 105 98 - 107 mmol/L [facility] Carbon Dioxide 27 22 - 31 mmol/L [facility] Anion Gap 9 5 - 15 mmol/L [facility] Calcium 9.8 8.5 - 10.5 mg/dL [facility] Protein, Total 7.1 6.1 - 8.0 g/dL [facility] Albumin 4.6 3.2 - 5.2 g/dL [facility] Aspartate Aminotransferase 16 0 - 39 unit/L [facility] Alanine Aminotransferase 18 0 - 55 unit/L [facility] Alkaline Phosphatase 65 40 - 130 unit/L [facility] Bilirubin, Total 0.6 0.2 - 1.3 mg/dL [facility] Est Glomerular Filtration Rate 89 >=60 mL/min/1. 73 m?? [facility] Comment: This patient's estimated GFR was [...] In Lab Nisha Marlow APRN CHEMISTRY ORDERABLES [facility] [place] [address] documented in this encounter Visit Diagnoses Diagnosis Malignant neoplasm of prostate documented in this encounter Care Teams Flat Drier Relationship Specialty Start Date End Date Vicky Curry APRN [address] [place] [address] PCP - General Family Medicine 05/16/21 2 documented as of this encounter
--- OUTSIDE RECORDS SUMMARY | 2024-01-09 01:25 | XMS_ITS | Encounter Summary ---
Author Organization [facility] [place] [address] Care Team Providers Care Cotton Wringer Name Role Phone Michael Franco MD Primary Care Provider Encounter Details Date Type Department Care Team (Late st Contact Info) Description 03/20/2018 11:30 AM EST Office Visit Hematology/Oncology at [address] [phone] Nisha Marlow APRN [facility] [place] [address] Prostate cancer Social History Tobacco Use Types [...] Sign Reading Time Taken Comments Blood Pressure 142/71 03/20/2018 11:37 AM EST Pulse 53 03/20/2018 11:37 AM EST Temperature 36.9 ??C (98.4 ??F) 03/20/2018 1 1:37 AM EST Respiratory Rate 18 03/20/2018 11:3 7 AM EST Oxygen Saturation 99% 03/20/2018 11: 37 AM EST Inhaled Oxygen Concentration - - Weight 110.8 kg (244 lb 3.2 oz) 018 11:37 AM EST Height 185.4 cm (6' 1) 03/20/2018 11:3 7 AM EST Body Mass Index 32.22 03/20/2018 11:37 AM EST documented in this encounter Patient Instructions * Patient Instructions* Nisha Marlow APRN - 03/20/2018 11:30 AM EST He will return in 6 months with labs prior. He will do labs in [place]. documented in this encounter Progress Notes * Nisha Marlow APRN - 03/20/2018 11:30 AM EST Problem list 1. Prostate cancer [...] follow-up on his prostate cancer. He is status post prostatectomy so when his PSA started going up a couple years ago we were concerned his prostate cancer was back. Fortunately that has not been the case as his PSA has basically stabilized at a low level and actually dropped a bit. He did get his labs in a couple months ago as he was concerned but was able to get his results on the computer. He is here today for follow-up and notes he is doing well with no urinary or bowel problems and has a negative review of systems. He is active physically at home and has no complaints or problems. He is walking at least 1.5 miles/day. His energy level is good. He gets up usually 2x at night. He denies any bone pain Past history and social history are reviewed. He is still enjoying his longterm Review of Systems Constitutional: Negative for fever, chills, activity change, fatigue and unexpected weight change. HENT: Negative for sore throat, mouth sores and trouble swallowing. Eyes: Negative. Respiratory: Negative for cough, shortness of breath and wheezing. Cardiovascular: Negative for chest pain, palpitations and leg swelling. Gastrointestinal: Negative for nausea, vomiting, abdominal pain, diarrhea, constipation and abdominal distention. Genitourinary: Negative for dysuria and difficulty urinating. Musculoskeletal: Negative. Skin: Negative. Neurological: Negative. Hematological: Negative for adenopathy. Temp: [36.9 ??C (98.4 ??F)] Heart Rate: [53] Resp: [18] BP: (142)/(71) SpO2: [99 %] Heart Rate from SPO2: -- Head: Normocephalic, without obvious abnormality, atraumatic Eyes: PERRL, conjunctiva/corneas clear, EOM's intact, fundi benign, both eyes Ears: Normal TM's and external ear canals, both ears Nose: Nares normal, septum midline, mucosa normal, no drainage or sinus tenderness Throat: Lips, mucosa, and tongue normal; teeth and gums normal Neck: Supple, symmetrical, trachea midline, no adenopathy, thyroid: not enlarged, symmetric, no tenderness/mass/nodules, no carotid bruit or JVD Back: Symmetric, no curvature, ROM normal, no CVA tenderness Lungs: Clear to auscultation bilaterally, respirations unlabored Chest Wall: No tenderness or deformity Heart: Regular rate and rhythm, S1, S2 normal, no murmur, rub or gallop Abdomen: Soft, non-tender, bowel sounds active all four quadrants, no masses, no organomegaly Extremities: Extremities normal, atraumatic, no cyanosis or edema Pulses: 2+ and symmetric Skin: Skin color, texture, turgor normal, no rashes or lesions Lymph nodes: Cervical, supraclavicular, and axillary nodes normal Neurologic: Normal Results for MARIBELL KAUFFMAN SR. ( ) as of 03/20/2018 13:38 Ref. Range 09/01/2017 13:22 03/04/2018 12:35 WBC Latest Ref Range: 4.0 - 9.5 x10(3)/mcL 6.3 5.9 RBC Latest Ref Range: 4.58 - 5.54 x10(6)/mcL 4.54 (L) 4.56 (L) Hemoglobin Latest Ref Range: 13.7 - 16.5 gm/dL 15.2 15.3 Hematocrit Latest Ref Range: 40.5 - 48.5 % 43.2 44.0 MCV Latest Ref Range: 82.9 - 93.1 fL 95.2 (H) 96.5 (H) MCH Latest Ref Range: 27.5 - 32.1 pg 33.5 (H) 33.6 (H) MCHC Latest Ref Range: 32.0 - 35.7 gm/dL 35.2 34.8 RDWSD Latest Ref Range: 36.0 - 45.0 fL 43.2 45.1 (H) RDWCV Latest Ref Range: 11.4 - 13.8 % 12.4 12.6 Platelets Latest Ref Range: 145 - 357 x10(3)/mcL 165 166 MPV Latest Ref Range: 7.6 - 12.9 fL 10.6 10.1 nRBC % Auto Latest Units: % 0.0 0.0 nRBC Abs Auto Latest Ref Range: 0.000 - 0.000 x10(3)/mcL 0.000 0.000 Neutr Abs (ANC) Latest Ref Range: 1.70 - 6.10 x10(3)/mcL 3.75 3.33 Neutrophils % Latest Units: % 59.8 56.4 Immature Gran % Latest Units: % 0.30 0.20 Lymphocytes % Latest Units: % 27.4 26.5 Monocytes % Latest Units: % 8.3 8.7 Eosinophils % Latest Units: % 3.2 6.8 Basophils % Latest Units: % 1.0 1.4 Carolann Gran Abs Latest Ref Range: 0.00 - 0.04 x10(3)/mcL 0.02 0.01 Lymphocytes Abs Latest Ref Range: 0.9 - 3.2 x10(3)/mcL 1.7 1.6 Monocyte Abs Latest Ref Range: 0.3 - 0.9 x10(3)/mcL 0.5 0.5 Eosinophils Abs Latest Ref Range: 0.0 - 0.4 x10(3)/mcL 0.2 0.4 Basophils Abs Latest Ref Range: 0.0 - 0.1 x10(3)/mcL 0.1 0.1 Sodium Latest Ref Range: 135 - 145 mmol/L 141 142 Potassium Latest Ref Range: 3.5 - 5.0 mmol/L 4.6 4.5 Chloride Latest Ref Range: 98 - 107 mmol/L 101 103 CO2 Latest Ref Range: 22 - 31 mmol/L 27 26 Anion Gap Latest Ref Range: 5 - 15 mmol/L 13 13 BUN Latest Ref Range: 10 - 20 mg/dL 20 19 Creatinine Latest Ref Range: 0.80 - 1.50 mg/dL 0.82 0.75 (L) eGFR Latest Ref Range: >=60 mL/min/1.73 m?? >60 89 eGFR Latest Ref Range: >=60 mL/min/1.73 m?? 103 Glucose Lvl Latest Ref Range: 65 - 199 mg/dL 100 104 Calcium Latest Ref Range: 8.5 - 10.5 mg/dL 9.4 9.6 Total Protein Latest Ref Range: 6.1 - 8.0 gm/dL 7.4 7.4 Albumin Latest Ref Range: 3.2 - 5.2 gm/dL 4.6 4.6 Total Bilirubin Latest Ref Range: 0.2 - 1.3 mg/dL 0.6 0.6 Alk Phos Latest Ref Range: 40 - 120 unit/L 60 58 AST Latest Ref Range: 0 - 39 unit/L 22 23 ALT Latest Ref Range: 0 - 55 unit/L 22 22 PSA Total Latest Ref Range: 0.00 - 4.00 ng/mL 0.08 0.10 Assessment/plan: Maribell is doing exceptionally well. His PSA is about the same as it was several months ago. We will continue to monitor it on an every 6 month basis. If it starts to rise, we will follow it more closely. He is comfortable with this plan. He will call if there is issues or problems in the interim. documented in this encounter Plan of Treatment Upcoming Encounters Date Type Department Care Team (Late Contact Info) Description 01/20/2024 9:30 AM EDT Office Visit Hematology/Oncology at [address] [phone] Miguelina Lucia APRN [facility] [place] [address] 02/27/2024 2:15 PM EDT Office Visit Dermatology at [address] [place] [phone] Eliel Vanessa MD [address] [facility], [place] [address] documented as of this encounter Results * PSA (08/18/2018 11:20 AM EDT) Prostate Specific Antigen (Ultrasensitiv e) 0.08 0.00 - 4.00 ng/mL [facility] Blood specimen (specimen) 08/18/2018 11:20 AM EDT 08/18/2018 11:36 AM EDT Narrative Resulting Agency Comment Spec In Lab Nisha Marlow APRN CHEMISTRY ORDERABLES [facility] [place] [address] * (ABNORMAL) Comprehensive metabolic panel (non-fasting) (08/18/2018 11:20 AM EDT) Glucose 101 65 - 199 mg/dL [facility] Comment:Diabetes: >=200 mg/d L plus symptoms Blood Urea Nitrogen 17 10 - 20 mg/dL [facility] Creatinine 0.78(L) 0.80 - 1.50 mg/dL [facility] Sodium 143 135 - 145 mmol/L [facility] Potassium 4.3 3.5 - 5.0 mmol/L [facility] Comment: Please note: ??Patients with WBC >100,000 may have falsely elevated Potassium levels. ??For accurate Potassium quantification in these patients send serum separator tube (gold top) for subsequent determinations. ??Contact the Clinical Chemistry Laboratory if there are any questions. Chloride 103 98 - 107 mmol/L [facility] Carbon Dioxide 28 22 - 31 mmol/L [facility] Anion Gap 12 5 - 15 mmol/L [facility] Calcium 9.7 8.5 - 10.5 mg/dL [facility] Protein, Total 7.6 6.1 - 8.0 gm/dL [facility] Albumin 4.6 3.2 - 5.2 gm/dL [facility] Aspartate Aminotransferase 21 0 - 39 unit/L [facility] Alanine Aminotransferase 25 0 - 55 unit/L [facility] Alkaline Phosphatase 58 40 - 120 unit/L [facility] Bilirubin, Total 0.6 0.2 - 1.3 mg/dL [facility] Est Glomerular Filtration Rate 88 >=60 mL/min/1. 73 m?? [facility] Comment: The eGFR was calculated using the CKD-EPI equation. As with all creatinine based estimates of kidney function, eGFR values calculated with the CKD-EPI equation are not accurate in patients with acute kidney failure, extremes of body mass or the acutely ill. http://[employer]/[facility] eGFR 102 >=60 mL/min/1. 73 m?? [facility] Comment: The eGFR was calculated using the CKD-EPI equation. As with all creatinine based estimates of kidney function, eGFR values calculated with the CKD-EPI equation are not accurate in patients with acute kidney failure, extremes of body mass or the acutely ill. http://[employer]/[facility] Blood specimen (specimen) 08/18/2018 11:20 AM EDT 08/18/2018 11:36 AM EDT Narrative Resulting Agency Comment Spec In Lab Nisha Marlow APRN CHEMISTRY ORDERABLES [facility] [place] [address] documented in this encounter Visit Diagnoses Diagnosis Prostate cancer Malignant neoplasm of prostate documented in this encounter Care Teams Cotton Wringer Relationship Specialty Start Date End Date Michael Franco MD [address] [place] [address] PCP - General 04/03/10 05/15/21 documented as of this encounter
--- OUTSIDE RECORDS SUMMARY | 2024-01-09 01:25 | XMS_ITS | Encounter Summary ---
Author Organization [facility] [place] [address] Care Team Providers Care Adult Literacy Instructor Name Role Phone EuniceDilcia hammondsmonty Cano APRN Primary Care Provider [phone] Encounter Details Date Type Department Care Team (Latest Contact Info) Description 05/30/2022 Travel Social History Tobacco Use Types Packs/Day [...] 9:30 AM EDT Office Visit Hematology/Oncology at [address] [phone] Miguelina Lucia APRN [facility] [place] [address] 02/27/2024 2:15 PM EDT Office Visit Dermatology at [address] [place] [phone] Eliel Vanessa MD [address], [place] [address] documented as of this encounter Visit Diagnoses Not on filedocumented in this encounter Care Teams Adult Literacy Instructor Relationship Specialty Start Date End Date Vicky Curry APRN [address] [place] [address] PCP - General Family Medicine 05/16/21 2 documented as of this encounter
--- OUTSIDE RECORDS SUMMARY | 2024-01-09 01:25 | XMS_ITS | Encounter Summary ---
[place] [address] Care Team Providers Care Van Cdl Driver Name Role Phone Michael Franco MD Primary Care Provider [phone] Encounter Details Date Type Department Care Team (Late st Contact Info) Description 11/14/2020 2:30 PM EDT Office Visit Hematology/Oncology at [address] [phone] Kiera Zuluaga, RN Malignant neoplasm [...] Sign Reading Time Taken Comments Blood Pressure 152/63 11/14/2020 2:12 PM EDT Pulse 56 11/14/2020 2:12 PM EDT Temperature 37 ??C (98.6 ??F) 11/14/2020 2:12 PM EDT Respiratory Rate 18 11/14/2020 2:12 PM EDT Oxygen Saturation 98% 11/14/2020 2:12 PM EDT Inhaled Oxygen Concentration - - Weight 111.5 kg (245 lb 12.8 oz) 11/14/2020 2:12 PM EDT Height 185.7 cm (6' 1.11) 11/14/2020 2:12 PM ED T Body Mass Index 32.33 11/14/2020 2:12 PM EDT documented in this encounter Progress Notes * Kiera Zuluaga, BEVELING AND EDGING MACHINE OPERATOR - 11/14/2020 2:30 PM EDT Problem list 1. Prostate [...] stenosis S/P Bovine Aortic valve replacement Interval history(11/14/20): Maribell returns to the [facility] today for follow-up of his prostate cancer. He is feeling well today. Denies any new illnesses or hospitalizations since his last visit. He saw his fine grader since we last saw him and everything looked well. Denies any joint pain or any other pain. Denies any urinary issues. No fevers, chills or infections. Energy level has been good. He has intermittent issues with his bowels- sometimes he has normal movements and sometimeshe has cramping and diarrhea- this is not new for him. No shortness of breath or edema. PMH: [...] normal. Pathology: 09/30/2006 Adenocarcinoma of the prostate Wilmont pattern 3+4 Labs: 11/07/20- WBC-6.4 Hgb/Hct-15.8/44.5 Plt-150 ANC-4.16 Na-141 K+-4.3 BUN/cr-19/0.91 Ca-9.5 Glucose-108 Albumin-4.6 T. Bili-0.7 Alk phos-72 AST-23 ALT-23 04/25/20- WBC-6.9 Hgb/Hct-15.6/45.5 Plt-167 ANC-4.36 Na-140 K+-3.8 BUN/Cr-18/0.99 Ca-9.1 Glucose-95 Albumin-4.6 T. Bili-0.5 Alk phos- 73 AST-23 ALT-23 10/26/19- WBC-6.3 Hgb/Hct-15.3/44.6 Plt-191 ANC-3.77 BUN-22 Cr-0.84 K+-4.1 Ca-9.6 LFTS unremarkable Date PSA Testosterone 11/07/20 0.20 04/25/20 0.20 10/26/19 0.17 Results for MARIBELL KAUFFMAN SR. ( ) as of 04/27/2019 14:17 Ref. Range 03/20/2017 12:04 09/01/2017 13:22 03/04/2018 12:35 08/18/2018 11:20 03/09/2019 12:11 PSA Total (Ultrasensitive) Latest Ref Range: 0.00 - 4.00 ng/mL 0.12 0.08 0.10 0.08 0.15 Assessment/plan: #Prostate cancer: Initially diagnosed with prostatic adenocarcinoma Wilmont 3+4 in 2006, status post prostatectomy and salvage radiation with short term Lupron. PSA in 10/21 was <0.03. Mr Kauffman's PSA has been slowly increasing but has remained stable for the last 6 months. . He denies any urinary issues. He denies [...] 9:30 AM EDT Office Visit Hematology/Oncology at [address] [phone] Miguelina Lucia APRN [facility] [place] [address] 02/27/2024 2:15 PM EDT Office Visit Dermatology at [address] [place] [phone] Eliel Vanessa MD [address] [facility], [place] [address] documented as of this encounter Visit Diagnoses Diagnosis Malignant neoplasm of prostate documented in this encounter Care Teams Van Cdl Driver Relationship Specialty Start Date End Date Michael Franco MD [address] [place] [address] PCP - General 04/03/10 05/15/21 documented as of this encounter
--- OUTSIDE RECORDS SUMMARY | 2024-01-09 01:26 | XMS_ITS | Encounter Summary ---
[place] [address] Care Team Providers Care Monomer Recovery Operator Name Role Phone Michael Franco MD Primary Care Provider [phone] Encounter Details Date Type Department Care Team (Latest Contact Info) Description 03/16/2014 12:40 PM EST - 03/16/2014 11:59 PM [facility] Hospital Encounter Hematology [place] [phone] John Wilson MD [address] [place] [address] [address] [place], [place] [id number] Prostate cancer Discharge Disposition: Home Social History Tobacco Use [...] Sig Dispensed Refills Start Date End Date ibuprofen (ADVIL;MOTRIN) 200 mg tablet Take 3 tablets by mouth every 8 hours as needed for Pain. 12/09/2011 MULTI-VITAMIN ORAL Take by mouth daily. 10/04/2010 Flaxseed Oil 1,000 mg Cap 03/13/2010 GLUCOSAMINE HCL/CHONDRO EVANS A (GLUCOSAMINE-CHONDROITI N ORAL) 03/13/2010 simvastatin (ZOCOR) 40 mg tablet Take 40 mg by mouth nightly. 03/27/2017 acetaminophen (TYLENOL) 500 mg tablet Take 1-2 tablets by mouth every 6 hours as needed for Pain. 12/09/2011 03/16/2015 metoprolol tartrate (LOPRESSOR) 25 mg tablet Take 1 tablet by mouth 2 times daily. 60 tablet 1 12/09/2011 03/16/2015 senna-docusate (PERICOLACE) 8.6-50 mg per tablet Take 2 tablets by mouth daily. 12/09/2011 03/16/2015 aspirin 81 mg EC tablet Take 81 mg by mouth daily. 08/30/2022 ERGOCALCIFEROL, VITAMIN D2, (VITAMIN D ORAL) 03/13/2010 017 documented as of this encounter Plan of Treatment Upcoming Encounters Date Type Department Care Team (Late st Contact Info) Description 01/20/2024 9:30 AM EDT Office Visit Hematology/Oncology at [address] [phone] Miguelina Lucia APRN [facility] [place] [address] 02/27/2024 2:15 PM EDT Office Visit Dermatology at [place] [address] [place] [phone] Eliel Vanessa MD [address], MICHAEL [place] [address] documented as of this encounter Procedures Procedure Name Priority Date/Time Associated Diagnosis Comments HEMOGRAM Routine 03/16/2014 1:00 PM EST Prostate cancer DIFFERENTIAL, AUTOMATED Routine 03/16/2014 1:00 PM EST Prostate cancer CBC (WITH DIFF) Routine 03/16/2014 1:00 PM EST Prostate cancer PSA (ULTRASENSITIVE) Routine 03/16/2014 1:00 PM EST Prostate cancer COMPREHENSIVE METABOLIC PANEL Routine 03/16/2014 1:00 PM EST Prostate cancer documented in this encounter Results * Differential, Automated (03/16/2014 1:00 PM EST) Neutrophil % 50.1 % [facility] MILLENNIUM Neutrophil Absolute 2.35 1.50 - 6.30 x10(3)/mcL CERNER MILLENNIUM Lymph % 31.1 % CERNER MILLENNIUM Lymphocytes Abs 1.5 1.0 - 3.6 x10(3)/mcL CERNER MILLENNIUM Monocyte % 9.0 % CERNER MILLENNIUM Monocyte Abs 0.4 0.2 - 1.0 x10(3)/mcL CERNER MILLENNIUM Eos % 8.1 % CERNER MILLENNIUM Eosinophils Abs 0.4 0.0 - 0.5 x10(3)/mcL CERNER MILLENNIUM Basophil % 1.5 % CERNER MILLENNIUM Baso Absolute 0.1 0.0 - 0.2 x10(3)/mcL CERNER MILLENNIUM Immature Gran % 0.20 % CERN ER MILLENNIUM Comment: Immature granulocytes(IG's)percentage and absolute count will include metamyelocytes, myelocytes, and promyelocytes. Blood smears from CBCs yielding IG's will be scanned manually for concordance. If this scan disagrees with the automated IG or if promyelocytes are noted, a manual differential will be performed. Immature Gran Absolute 0.01 0.00 - 0.05 x10(3)/mcL CERNER MILLENNIUM Blood specimen (specimen) 03/16/2014 1:00 PM EST 03/16/2014 1:07 PM EST Narrative Resulting Agency Comment Spec In Lab John Wilson MD HEMATOLOGY ORDERABLE S CERNER MILLENNIUM * (ABNORMAL) Hemogram (03/16/2014 1:00 PM EST) White Blood Cell 4.7 4.0 - 10.0 x10(3)/mc L CERNER MILLENNIUM Red Blood Cell 4.36(L) 4.63 - 6.08 x10(6)/mc L CERNER MILLENNIUM Hemoglobin 15.1 13.7 - 17.5 gm/dL CERNER MILLENNIUM Hematocrit 42.3 40.0 - 51.0 % CERNER MILLENNIUM Mean Cell Volume 97.0(H) 79.0 - 92.0 fL CERNER MILLENNIUM Mean Cell Hemoglobin 34.6(H) 25.6 - 32.2 pg CERNER MILLENNIUM Mean Cell Hemoglobin Concentration 35.7 32.0 - 36.5 gm/dL CERNER MILLENNIUM Platelet 161 145 - 370 x10(3)/mc L CERNER MILLENNIUM RDW Standard Deviation 45.6 35.0 - 46.0 fL CERNER MILLENNIUM RDW coefficient of variation 13.0 10.9 - 14.4 % CERNER MILLENNIUM Mean Platelet Volume 10.4 9.0 - 12.0 fL CERNER MILLENNIUM Blood specimen (specimen) 03/16/2014 1:00 PM EST 03/16/2014 1:07 PM EST Narrative Resulting Agency Comment Spec In Lab John Wilson MD HEMATOLOGY ORDERABLE S CERNER MILLENNIUM * (ABNORMAL) Comprehensive metabolic panel (non-fasting) (03/16/2014 1:00 PM EST) [facility] Glucose 103 60 - 199 mg/dL CERNER MILLENNIUM Comment:Diabetes: >=200 mg/d L plus symptoms Blood Urea Nitrogen 20 10 - 20 mg/dL CERNER MILLENNIUM Creatinine 0.79(L) 0.80 - 1.50 mg/dL CERNER MILLENNIUM Comment: Please note that the pediatric reference intervals supplied above were not validated at [facility]. Results from pediatric patients should be interpreted in conjunction to the patient's age, height and muscle mass. Sodium 140 135 - 145 mmol/L CERNER MILLENNIUM Potassium 4.6 3.5 - 5.0 mmol/L CERNER MILLENNIUM Comment: Please note: ??Patients with WBC >100,000 may have falsely elevated Potassium levels. ??For accurate Potassium quantification in these patients send serum separator tube (gold top) for subsequent determinations. ??Contact the Clinical Chemistry Laboratory if there are any questions. Chloride 100 98 - 107 mmol/L CERNER MILLENNIUM Carbon Dioxide 24 22 - 31 mmol/L CERNER MILLENNIUM Anion Gap 16(H) 5 - 15 mmol/L CERNER MILLENNIUM Calcium 9.8 8.5 - 10.5 mg/dL CERNER MILLENNIUM Protein, Total 7.3 6.4 - 8.3 gm/dL CERNER MILLENNIUM Albumin 4.6 3.2 - 5.2 gm/dL CERNER MILLENNIUM Aspartate Aminotransferase 25 0 - 39 unit/L CERNER MILLENNIUM Alanine Aminotransferase 29 0 - 55 unit/L CERNER MILLENNIUM Alkaline Phosphatase 55 40 - 120 unit/L CERNER MILLENNIUM Bilirubin, Total 0.5 0.2 - 1.3 mg/dL CERNER MILLENNIUM Bilirubin, Direct 0.1 0.0 - 0.3 mg/dL CERNER MILLENNIUM Est Glomerular Filtration Rate >60 >=60 CERNER MILLENNIUM Comment: This estimated GFR (eGFR) value was calculated using the MDRD equation which has been validated on patients between the ages of 18 and 70. The MDRD should not be used to assess kidney function in patients < 18 years of age or in patients with extremes of body mass, or in patients with acute kidney failure. This value should be multiplied by 1.2 for patients. For further information please copy and paste the following links into your internet browser. [email or web address] [email or web address] Blood specimen (specimen) 03/16/2014 1:00 PM EST 03/16/2014 1:07 PM EST Narrative Resulting Agency Comment Spec In Lab John Wilson MD CHEMISTRY ORDERABLES [facility] * PSA (03/16/2014 1:00 PM EST) Prostate Specific Antigen (Ultrasensitiv e) <0.03 0.00 - 4.00 ng/mL CERNER MILLENNIUM Blood specimen (specimen) 03/16/2014 1:00 PM EST 03/16/2014 1:07 PM EST Narrative Resulting Agency Comment Spec In Lab John Wilson MD CHEMISTRY ORDERABLES [facility] documented in this encounter Visit Diagnoses Diagnosis Prostate cancer Malignant neoplasm of prostate documented in this encounter Care Teams Monomer Recovery Operator Relationship Specialty Start Date End Date Michael Franco MD [address] [place] [address] PCP - General 04/03/10 05/15/21 documented as of this encounter
--- OUTSIDE RECORDS SUMMARY | 2024-01-09 01:26 | XMS_ITS | Encounter Summary ---
[place] [address] Care Team Providers Care Frame Fixer Name Role Phone Michael Franco MD Primary Care Provider [phone] Encounter Details Date Type Department Care Team (Latest Contact Info) Description 03/01/2015 12:10 PM EDT Laboratory Appointment Lab [address] [place] [address] Prostate cancer Social History Tobacco [...] AM EDT Office Visit Hematology/Oncology at [address] [phone] Miguelina Lucia APRN [facility] [place] [address] 02/27/2024 2:15 PM EDT Office Visit Dermatology at [address] [place] [phone] Eliel Vanessa MD [address], MICHAEL Mark DERMATOLOGY [place], [place] [phone] documented as of this encounter Procedures Procedure Name Priority Date/Time Associated Diagnosis Comments HEMOGRAM Routine 03/01/2015 12:41 PM EDT DIFFERENTIAL, AUTOMATED Routine 03/01/2015 12:41 PM EDT PSA (ULTRASENSITIVE) Routine 03/01/2015 12:41 PM EDT COMPREHENSIVE METABOLIC PANEL Routine 03/01/2015 12:41 PM EDT documented in this encounter Results * PSA (03/01/2015 12:41 PM EDT) Pathologist [facility] Prostate Specific Antigen (Ultrasensitiv e) <0.03 0.00 - 4.00 ng/mL [facility] Blood specimen (specimen) Venous Draw / Unknown 03/01/2015 12:41 PM EDT 03/01/2015 12:52 PM EDT Narrative Resulting Agency Comment Spec In Lab John Wilson MD CHEMISTRY ORDERABLES [facility] * Comprehensive metabolic panel (non-fasting) (03/01/2015 12:41 PM EDT) Pathologist [facility] Glucose 95 65 - 199 mg/dL [facility] Comment:Diabetes: >=200 mg/d L plus symptoms Blood Urea Nitrogen 16 10 - 20 mg/dL [facility] Creatinine 0.88 0.80 - 1.50 mg/dL [facility] Comment: Please note that the pediatric reference intervals supplied above were not validated at [facility]. Results from pediatric patients should be interpreted in conjunction to the patient's age, height and muscle mass. Sodium 141 135 - 145 mmol/L [facility] Potassium 4.5 3.5 - 5.0 mmol/L [facility] Comment: Please note: ??Patients with WBC >100,000 may have falsely elevated Potassium levels. ??For accurate Potassium quantification in these patients send serum separator tube (gold top) for subsequent determinations. ??Contact the Clinical Chemistry Laboratory if there are any questions. Chloride 102 98 - 107 mmol/L CERNER MILLENNIUM Carbon Dioxide 26 22 - 31 mmol/L CERNER MILLENNIUM Anion Gap 13 5 - 15 mmol/L CERNER MILLENNIUM Calcium 9.3 8.5 - 10.5 mg/dL CERNER MILLENNIUM Protein, Total 7.2 6.1 - 8.0 gm/dL CERNER MILLENNIUM Albumin 4.5 3.2 - 5.2 gm/dL CERNER MILLENNIUM Aspartate Aminotransferase 27 0 - 39 unit/L CERNER MILLENNIUM Alanine Aminotransferase 35 0 - 55 unit/L CERNER MILLENNIUM Alkaline Phosphatase 58 40 - 120 unit/L CERNER MILLENNIUM Bilirubin, Total 0.6 0.2 - 1.3 mg/dL CERNER MILLENNIUM Bilirubin, [...] the following links into your internet browser. [email or web address] Blood specimen (specimen) Venous Draw / Unknown 03/01/2015 12:41 PM EDT 03/01/2015 12:52 PM EDT Narrative Resulting Agency Comment Spec In Lab John Wilson MD CHEMISTRY ORDERABLES CERNER MILLENNIUM * Differential, Automated (03/01/2015 12:41 PM EDT) Neutrophil % 63.2 % CERNER MILLENNIUM Neutrophil Absolute 3.36 1.50 - 6.30 x10(3)/mcL CERNER MILLENNIUM Lymph % 23.9 % CERNER MILLENNIUM Lymphocytes Abs 1.3 1.0 - 3.6 x10(3)/mcL CERNER MILLENNIUM Monocyte % 7.3 % CERNER MILLENNIUM Monocyte Abs 0.4 0.2 - 1.0 x10(3)/mcL CERNER MILLENNIUM Eos % 4.3 % CERNER MILLENNIUM Eosinophils Abs 0.2 0.0 - 0.5 x10(3)/mcL CERNER MILLENNIUM Basophil % 0.9 % CERNER MILLENNIUM Baso Absolute 0.0 0.0 - 0.2 x10(3)/mcL CERNER MILLENNIUM Immature Gran % 0.40 % CERN ER MILLENNIUM Comment: Immature granulocytes(IG's)percentage and absolute count will include metamyelocytes, myelocytes, and promyelocytes. Blood smears from CBCs yielding IG's will be scanned manually for concordance. If this scan disagrees with the automated IG or if promyelocytes are noted, a manual differential will be performed. Immature Gran Absolute 0.02 0.00 - 0.05 x10(3)/mcL CERNER MILLENNIUM Blood specimen (specimen) Venous Draw / Unknown 03/01/2015 12:41 PM EDT 03/01/2015 12:52 PM EDT Narrative Resulting Agency Comment Spec In Lab John Wilson MD HEMATOLOGY ORDERABLE S CERNER MILLENNIUM * (ABNORMAL) Hemogram (03/01/2015 12:41 PM EDT) White Blood Cell 5.3 4.0 - 10.0 x10(3)/mc L CERNER MILLENNIUM Red Blood Cell 4.51(L) 4.63 - 6.08 x10(6)/mc L CERNER MILLENNIUM Hemoglobin 15.2 13.7 - 17.5 gm/dL CERNER MILLENNIUM Hematocrit 43.6 40.0 - 51.0 % CERNER MILLENNIUM Mean Cell Volume 96.7(H) 79.0 - 92.0 fL CERNER MILLENNIUM Mean Cell Hemoglobin 33.7(H) 25.6 - 32.2 pg [facility]LLSEN[facility] Mean Cell Hemoglobin Concentration 34.9 32.0 - 36.5 gm/dL [facility]LL[facility] Platelet 178 145 - 370 x10(3)/mc L [facility]ERMAG[facility] WELLSENNIUM RDW Standard Deviation 46.5(H) 35.0 - 46.0 fL [facility]LLS[facility] RDW coefficient of variation 13.3 10.9 - 14.4 % [facility] WELLS[facility] Mean Platelet Volume 10.9 9.0 - 12.0 fL [facility] FATIMAI[facility] Blood specimen (specimen) Venous Draw / Unknown 03/01/2015 12:41 PM EDT 03/01/2015 12:52 PM EDT Narrative Resulting Agency Comment Spec In Lab John Wilson MD HEMATOLOGY ORDERABLE S [facility] documented in this encounter Visit Diagnoses Diagnosis Prostate cancer Malignant neoplasm of prostate documented in this encounter Care Teams Frame Fixer Relationship Specialty Start Date End Date Michael Franco MD [address] [place] [address] PCP - General 04/03/10 05/15/21 documented as of this encounter
--- OUTSIDE RECORDS SUMMARY | 2024-01-09 01:26 | XMS_ITS | Encounter Summary ---
Author Organization [facility] [place] [address] Care Team Providers Care Cloth Mercerizer Operator Name Role Phone Michael Franco MD Primary Care Provider Encounter Details Date Type Department Care Team (Latest Contact Info) Description 03/09/2012 9:09 AM EDT - 03/09/2012 11:59 PM EDT Hospital [place] [address] John Wilson MD [address] [place] [address] [address] [place], [place] [address] Prostate cancer Discharge Disposition: Home Social History [...] HCL/CHONDRO EVANS A (GLUCOSAMINE-CHONDROITI N ORAL) 03/13/2010 acetaminophen (TYLENOL) 500 mg tablet Take 1-2 [...] 9:30 AM EDT Office Visit Hematology/Oncology at [address] [phone] Miguelina Lucia APRN [facility] [place] [address] 02/27/2024 2:15 PM EDT Office Visit Dermatology at [place] [address] [place] [address] Eliel Vanessa MD [address], [place]EL [place] [address] documented as of this encounter Procedures Procedure Name Priority Date/Time Associated Diagnosis Comments DIFFERENTIAL, AUTOMATED STAT 03/09/2012 9:17 AM EDT CBC (WITH DIFF) STAT 03/09/2012 9:17 AM EDT Prostate cancer TESTOSTERONE, TOTAL STAT 03/09/2012 9 :17 AM EDT Prostate cancer PSA (ULTRASENSITIVE) STAT 03/09/2012 9:17 AM EDT Prostate cancer COMPREHENSIVE METABOLIC PANEL STAT 03/09/2012 9:17 AM EDT Prostate cancer documented in this encounter Results * DIFFERENTIAL, AUTOMATED (03/09/2012 9:17 AM EDT) Neutrophil % 68.3 34.0 - 71.0 % CERNER MILLENNIUM Neutrophil Absolute 3.90 1.50 - 6.30 x10(3)/mcL CERNER MILLENNIUM Lymph % 19.6 19.0 - 53.0 % CERNER MILLENNIUM Lymphocytes Abs 1.1 1.0 - 3.6 x10(3)/mcL CERNER MILLENNIUM Monocyte % 7.7 4.0 - 13.0 % CERNER MILLENNIUM Monocyte Abs 0.4 0.2 - 1.0 x10(3)/mcL CERNER MILLENNIUM Eos % 3.7 0.0 - 7.0 % CERNER MILLENNIUM Eosinophils Abs 0.2 0.0 - 0.5 x10(3)/mcL CERNER MILLENNIUM Basophil % 0.5 0.0 - 2.0 % CERNER MILLENNIUM Baso Absolute 0.0 0.0 - 0.2 x10(3)/mcL CERNER MILLENNIUM Immature Gran % 0.20 0.00 - 0.66 % CERNER MILLENNIUM Comment: Immature granulocytes(IG's)percentage and absolute count will include metamyelocytes, myelocytes, and promyelocytes. Blood smears from CBCs yielding IG's will be scanned manually for concordance. If this scan disagrees with the automated IG or if promyelocytes are noted, a manual differential will be performed. Immature Gran Absolute 0.01 0.00 - 0.05 x10(3)/mcL CERNER MILLENNIUM Blood specimen (specimen) 03/09/2012 9:17 AM EDT 03/09/2012 9:31 AM EDT John Wilson MD HEMATOLOGY ORDERABLE S [facility] * Testosterone, total (03/09/2012 9:17 AM EDT) Testosterone 3.25 2.80 - 8.00 ng/mL [facility] Comment: Please note: Updated Reference Ranges 08/29/2010. Reference Ranges: ? Males (7to18 years) ?Females (8-18 years) Bret Stage ?ng/ml ? ng/ml ? 1 ? <0.03 ? <0.03 to 0.06 ? 2 ? <0.03 to 4.32 ? <0.03 to 0.10 ? 3 ? 0.65 to 7.78 ?<0.03 to 0.24 ? 4 ? 1.80 to 7.63 ?<0.03 to 0.27 ? 5 ? 1.88 to 8.82 ?<0.05 to 0.38 ?Males 18 years to adult ? Females 18 years to adult ? 2.80 to 8.00 ng/ml ?0.06 to 0.82 ng/ml Stated adult reference ranges derived from review of [employer] E170 Testosterone reagent package insert 03/16, V8 Stated pediatric reference ranges derived from review of [employer] E170 Testosterone II reagent package insert 11/18, V2. Blood specimen (specimen) 03/09/2012 9:17 AM EDT 03/09/2012 9:31 AM EDT Narrative Resulting Agency Comment Spec In Lab John Wilson MD CHEMISTRY ORDERABLES [facility] * PSA (03/09/2012 9:17 AM EDT) Prostate Specific Antigen (Ultrasensitiv e) <0.03 0.00 - 4.00 ng/mL CERNER MILLENNIUM Blood specimen (specimen) 03/09/2012 9:17 AM EDT 03/09/2012 9:31 AM EDT Narrative Resulting Agency Comment Spec In Lab John Wilson MD CHEMISTRY ORDERABLES Performing Organization Address [facility] Co de Phone Number CERNER MILLENNIUM * (ABNORMAL) Comprehensive metabolic panel (non-fasting) (03/09/2012 9:17 AM EDT) Glucose 99 60 - 199 mg/dL CERNER MILLENNIUM Comment:Diabetes: >=200 mg/d L plus symptoms Blood Urea Nitrogen 17 10 - 20 mg/dL CERNER MILLENNIUM Creatinine 0.79(L) 0.80 - 1.50 mg/dL CERNER MILLENNIUM Comment: Please note that the pediatric reference intervals supplied above were not validated at [facility] Results from pediatric patients should be interpreted in conjunction to the patient's age, height and muscle mass. Sodium 138 135 - 145 mmol/L CERNER MILLENNIUM Potassium 4.0 3.5 - 5.0 mmol/L CERN[facility] MILLENNIUM Comment: Please note: ??Patients with WBC >100,000 may have falsely elevated Potassium levels. ??For accurate Potassium quantification in these patients send serum separator tube (gold top) for subsequent determinations. ??Contact the Clinical Chemistry Laboratory if there are any questions. Chloride 102 98 - 107 mmol/L CERNER MILLENNIUM Carbon Dioxide 28 22 - 31 mmol/L CERNER MILLENNIUM Anion Gap 8 5 - 15 mmol/L CERNER MILLENNIUM Calcium 9.8 8.5 - 10.5 mg/dL CERNER MILLENNIUM Protein, Total 7.3 6.4 - 8.3 gm/dL [facility] MILLENNIUM Albumin 4.3 3.2 - 5.2 gm/dL CERNER MILLENNIUM Aspartate Aminotransferase 17 0 - 39 unit/L CERNER MILLENNIUM Alanine Aminotransferase 21 0 - 55 unit/L CERNER MILLENNIUM Alkaline Phosphatase 97 40 - 120 unit/L CERNER MILLENNIUM Bilirubin, Total 0.3 0.2 - 1.3 mg/dL CERNER MILLENNIUM Bilirubin, Direct 0.1 0.0 - 0.3 mg/dL CERNER MILLENNIUM Est Glomerular Filtration Rate >60 >=60 CERNER MILLENNIUM Comment: The National Kidney Disease Education Program (NKDEP) has recommended all laboratories report estimated GFR (eGFR) along with plasma creatinine measurements to assist you with recognition of early kidney disease. Caveats: ??Plasma creatinine should be at steady-state (unchanged within the past week). For patients multiply eGFR by 1.2. The MDRD equation was developed using patients between the ages of 18 and 70 years. ?? The MDRD equation has not been validated for patients < 18 years of age and should not be used to assess renal function in the pediatric population. ??The MDRD eGFR equation will also overestimate the true GFR of patients above the age of 70. ??This overestimation is variable but increases with age. At present, NKDEP does NOT recommend using the MDRD equation for drug dosing purposes and pharmacists should continue to use their current dosing methods. In addition, numerical eGFR values greater than 60 ml/min/1.73 square meters should be treated as > 60, and not an exact number due to greater inaccuracies at these higher values. Per NKDEP, they classify normal renal function as any GFR >60ml/min/1.73 square meters; chronic kidney disease when GFR <60, and renal failure when GFR <15. ??This calculation may not be valid for patients with atypical muscle mass (very lean or obese), acute renal failure, and in patients with diabetic kidney disease. References: http://nkdep.nih.gov/resources/NKDEP_Suggestn4Labs_0606_508.pdf http://www.kidney.org/professionals/kls/pdf/faq_gfr.pdf Aileen Hernandez, Lamont NA, Dominic AK, Kuldip TS, Lenin AD, Cristy SHAWNA. Relative performance of the MDRD and CKD-EPI equations for estimating glomerular filtration rate among patients with varied clinical presentations. Clin J Am Soc Nephrol;6:1963-72. Blood specimen (specimen) 03/09/2012 9:17 AM EDT 03/09/2012 9:31 AM EDT Narrative Resulting Agency Comment Spec In Lab John Wilson MD CHEMISTRY ORDERABLES CERNER MILLENNIUM * (ABNORMAL) CBC (with Diff) (03/09/2012 9:17 AM EDT) White Blood Cell 5.7 4.0 - 10.0 x10(3)/mc L CERNER MILLENNIUM Red Blood Cell 4.55(L) 4.63 - 6.08 x10(6)/mc L CERNER MILLENNIUM Hemoglobin 14.5 13.7 - 17.5 gm/dL CERNER MILLENNIUM Hematocrit 43.2 40.0 - 51.0 % CERNER MILLENNIUM Mean Cell Volume 94.9(H) 79.0 - 92.0 fL CERNER MILLENNIUM Mean Cell Hemoglobin 31.9 25.6 - 32.2 pg CERNER MILLENNIUM Mean Cell Hemoglobin Concentration 33.6 32.0 - 36.5 gm/dL CERNER MILLENNIUM Platelet 233 145 - 370 x10(3)/mc L CERNER MILLENNIUM RDW Standard Deviation 48.3(H) 35.0 - 46.0 fL CERNER MILLENNIUM RDW coefficient of variation 14.2 10.9 - 14.4 % CERNER MILLENNIUM Mean Platelet Volume 10.2 9.0 - 12.0 fL CERNER MILLENNIUM Blood specimen (specimen) 03/09/2012 9:17 AM EDT 03/09/2012 9:31 AM EDT Narrative Resulting Agency Comment Spec In Lab John Wilson MD HEMATOLOGY ORDERABLE S [facility] documented in this encounter Visit Diagnoses Diagnosis Prostate cancer Malignant neoplasm of prostate documented in this encounter Care Teams Cloth Mercerizer Operator Relationship Specialty Start Date End Date Michael Franco MD [address] [facility] [address] [place] [address] PCP - General 04/03/10 05/15/21 documented as of this encounter
--- OUTSIDE RECORDS SUMMARY | 2024-01-09 01:26 | XMS_ITS | Encounter Summary ---
[place] [address] Care Team Providers Care Strategic Marketing Manager Name Role Phone Michael Franco MD Primary Care Provider [phone] Reason for Visit * Reason Comments Prostate Cancer Encounter Details Date Type Department Care Team (Late st Contact Info) Description 03/27/2017 2:30 PM EST Office Visit Hematology/Oncology at [address] [phone] John Wilson MD [address] [place] [address] Prostate cancer Social History Tobacco Use Types [...] Sign Reading Time Taken Comments Blood Pressure 132/65 03/27/2017 2:36 PM EST Pulse 60 03/27/2017 2:36 PM EST Temperature 36.7 ??C (98.1 ??F) 03/27/2017 2:36 PM ES T Respiratory Rate 16 03/27/2017 2:36 PM EST Oxygen Saturation 98% 03/27/2017 2:36 PM EST Inhaled Oxygen Concentration - - Weight 108.9 kg (240 lb) 03/27/2017 2:36 PM EST Height 185.4 cm (6' 0.99) 03/27/2017 2:36 PM ES T copied Body Mass Index 31.67 03/27/2017 2:36 PM EST documented in this encounter Progress Notes * John Wilson MD - 03/27/2017 2:30 PM EST Problem list 1. Prostate cancer Diagnosed in 2006 with a PSA of 4.8. He underwent laparoscopic prostatectomy. He was found of [place]'s 7 with perineural invasion but no extracapsular extension. He did well until his PSA began to rise in 2010. It andreina to 0.13 in January of 2011 and radiation was started along with Lupron in February of 2011. He completed radiation therapy July 03, 2011. 2. Aortic stenosis S/P Bovine Aortic valve replacement SUBJECTIVE: Maribell come in today for followup on his prostate cancer. He has done well since I last saw him. He is currently on a diet and exercise program and has lost about 20 pounds in an attempt to keep from needing to take medications for his cholesterol. They make him feel terrible and he feels better off of them, so he is highly motivated for that. He is not having urinary or bowel problems. He is doing well in that regard. We went over his lab today, which includes a slight increase in PSA going from 0.03 to 0.12. Past history and social history are reviewed. He is enjoying his chcf Review of Systems Constitutional: Negative for fever, [...] Negative. Neurological: Negative. Hematological: Negative for adenopathy. Head: Normocephalic, without obvious abnormality, atraumatic Eyes: [...] normal Neurologic: Normal Results for MARIBELL KAUFFMAN Padmaja VARNER ( ) as of 03/27/2017 14:52 Ref. Range 10/20/2013 14:27 03/16/2014 13:00 03/01/2015 12:41 03/12/2016 10:29 03/20/2017 12:04 PSA Total Latest Ref Range: 0.00 - 4.00 ng/mL <0.03 <0.03 <0.03 0.03 0.12 Laboratory is otherwise reviewed and unremarkable with a white count of 5.9, hemoglobin 15.7, hematocrit 43.6, platelet 161. CMP shows normal electrolytes, an alkaline phosphatase of 61 and a calcium of 9.1. ASSESSMENT/PLAN: Maribell has had a measurable PSA a year ago and again today. He does not have a prostate, so in that regard, if on remeasuring this in 6 months, his PSA continues to go upwards, one would have to hypothesize he has recurrent prostate cancer. At this point, it is obvious that he has gone 7 years since his radiation therapy without difficulty. In that regard, that argues well for the future. I discussed with him indications for treatment. I would certainly consider scanning him with bone scans and a CT scan if PSA got in the range of 10 or so. If he had any symptoms that could suggest metastatic prostate cancer, it would not be unreasonable to check a scan sooner than that. That being said, it may be several years before one even entertains a scan. In that regard, I think he is fine on the treatment right now. We decided to see him back in 6 months' time with a PSA and CBC and CMP. He will call if there are issues or problems in the interim but he is basically given reassurance today. documented in this encounter Plan of Treatment Upcoming Encounters Date Type Department Care Team (Late st Contact Info) Description 01/20/2024 9:30 AM EDT Office Visit Hematology/Oncology at [address] [phone] Miguelina Lucia APRN [facility] [place] [address] 02/27/2024 2:15 PM EDT Office Visit Dermatology at [place] [address] [place] [address] Eliel Vanessa MD [address] [facility], [place] [address] documented as of this encounter Results * PSA (09/01/2017 1:22 PM EDT) Pathologist [facility] [place] Prostate Specific Antigen (Ultrasensitiv e) 0.08 0.00 - 4.00 ng/mL [facility] Blood specimen (specimen) 09/01/2017 1:22 PM EDT 09/01/2017 1:28 PM EDT Narrative Resulting Agency Comment Spec In Lab John Wilson MD CHEMISTRY ORDERABLES [facility] [place] [address] * Comprehensive metabolic panel (non-fasting) (09/01/2017 1:22 PM EDT) Pathologist [facility] [place] Glucose 100 65 - 199 mg/dL [facility] Comment:Diabetes: >=200 mg/d L plus symptoms Blood Urea Nitrogen 20 10 - 20 mg/dL [facility] Creatinine 0.82 0.80 - 1.50 mg/dL [facility] Sodium 141 135 - 145 mmol/L [facility] Potassium 4.6 3.5 - 5.0 mmol/L [facility] Comment: Please note: ??Patients with WBC >100,000 may have falsely elevated Potassium levels. ??For accurate Potassium quantification in these patients send serum separator tube (gold top) for subsequent determinations. ??Contact the Clinical Chemistry Laboratory if there are any questions. Chloride 101 98 - 107 mmol/L [facility] Carbon Dioxide 27 22 - 31 mmol/L [facility] Anion Gap 13 5 - 15 mmol/L [facility] Calcium 9.4 8.5 - 10.5 mg/dL [facility] Protein, Total 7.4 6.1 - 8.0 gm/dL [facility] Albumin 4.6 3.2 - 5.2 gm/dL [facility] Aspartate Aminotransferase 22 0 - 39 unit/L [facility] Alanine Aminotransferase 22 0 - 55 unit/L [facility] Alkaline Phosphatase 60 40 - 120 unit/L [facility] Bilirubin, Total 0.6 0.2 - 1.3 mg/dL [facility] Est Glomerular Filtration Rate >60 >=60 [facility] Comment: The reported eGFR should be multiplied by 1.2 for patients. The MDRD is not an appropriate measure of renal function for patients with body mass extremes or in patients with acute kidney failure. http://Scutum.ascentify/DHnkdep http://Scutum.com/DHMCnkf Blood specimen (specimen) 09/01/2017 1:22 PM EDT 09/01/2017 1:28 PM EDT Narrative Resulting Agency Comment Spec In Lab John Wilson MD CHEMISTRY ORDERABLES [address] [place] [address] documented in this encounter Visit Diagnoses Diagnosis Prostate cancer Malignant neoplasm of prostate documented in this encounter Care Teams Strategic Marketing Manager Relationship Specialty Start Date End Date Michael Franco MD [address] [place] [address] PCP - General 04/03/10 05/15/21 documented as of this encounter
--- OUTSIDE RECORDS SUMMARY | 2024-01-09 01:26 | XMS_ITS | Encounter Summary ---
[place] [address] Care Team Providers Care Telegraph Plant Maintainer Name Role Phone Michael Franco MD Primary Care Provider [phone] Encounter Details Date Type Department Care Team (Latest Contact Info) Description 03/04/2018 12:10 PM EDT Laboratory Appointment Lab [address] [place] [address] Prostate cancer Social History Tobacco [...] 9:30 AM EDT Office Visit Hematology/Oncology at [address] [phone] Miguelina Lucia APRN [facility] [place] [address] 02/27/2024 2:15 PM EDT Office Visit Dermatology at [address] [place] [phone] Eliel Vanessa MD [address], [address] Flores DERMATOLOGY [place], [place] [id number] documented as of this encounter Procedures Procedure Name Priority Date/Time Associated Diagnosis Comments HEMOGRAM Routine 03/04/2018 12:35 PM EDT Prostate cancer DIFFERENTIAL, AUTOMATED Routine 03/04/2018 12:35 PM EDT Prostate cancer CBC (WITH DIFF) Routine 03/04/2018 12:35 PM EDT Prostate cancer PSA (ULTRASENSITIVE) Routine 03/04/2018 12:35 PM EDT Prostate cancer COMPREHENSIVE METABOLIC PANEL Routine 03/04/2018 12:35 PM EDT Prostate cancer documented in this encounter Results * Differential, Automated (03/04/2018 12:35 PM EDT) Neutrophil % 56.4 % [facility] Neutrophil Absolute 3.33 1.70 - 6.10 x10(3)/[facility] Lymph % 26.5 % [facility] Lymphocytes Abs 1.6 0.9 - 3.2 x10(3)/[facility] Monocyte % 8.7 % [facility] Monocyte Abs 0.5 0.3 - 0.9 x10(3)/[facility] Eos % 6.8 % [facility] Eosinophils Abs 0.4 0.0 - 0.4 x10(3)/[facility] Basophil % 1.4 % [facility] Baso Absolute 0.1 0.0 - 0.1 x10(3)/[facility] Immature Gran % 0.20 % [facility] Comment: Immature granulocytes(IG's)percentage and absolute count will include metamyelocytes, myelocytes, and promyelocytes. Blood smears from CBCs yielding IG's will be scanned manually for concordance. If this scan disagrees with the automated IG or if promyelocytes are noted, a manual differential will be performed. Immature Gran Absolute 0.01 0.00 - 0.04 x10(3)/[facility] Blood specimen (specimen) 03/04/2018 12:35 PM EDT 03/04/2018 12:41 PM EDT Narrative Resulting Agency Comment Spec In Lab Lula Dobson MEAL TEMPERER HEMATOLOGY ORDERABLE S [facility] [place] [address] * (ABNORMAL) Hemogram (03/04/2018 12:35 PM EDT) White Blood Cell 5.9 4.0 - 9.5 x10(3)/ L [facility] Red Blood Cell 4.56(L) 4.58 - 5.54 x10(6)/[facility] Hemoglobin 15.3 13.7 - 16.5 gm/dL [facility] Hematocrit 44.0 40.5 - 48.5 % [facility] Mean Cell Volume 96.5(H) 82.9 - 93.1 [facility] Mean Cell Hemoglobin 33.6(H) 27.5 - 32.1 pg [facility] Mean Cell Hemoglobin Concentration 34.8 32.0 - 35.7 gm/dL [facility] Platelet 166 145 - 357 x10(3)/mc L [facility] RDW Standard Deviation 45.1(H) 36.0 - 45.0 [facility] RDW coefficient of variation 12.6 11.4 - 13.8 % [facility] Mean Platelet Volume 10.1 7.6 - 12.9 [facility] NRBC% auto 0.0 % [facility] NRBC Absolute 0.000 0.000 - 0.000 x10(3)/ L [facility] Blood specimen (specimen) 03/04/2018 12:35 PM EDT 03/04/2018 12:41 PM EDT Narrative Resulting Agency Comment Spec In Lab Lula Dobson [place] HEMATOLOGY ORDERABLE S [facility] [place] [address] * (ABNORMAL) Comprehensive metabolic panel (non-fasting) (03/04/2018 12:35 PM EDT) Glucose 104 65 - 199 mg/dL [facility] Comment:Diabetes: >=200 mg/d L plus symptoms Blood Urea Nitrogen 19 10 - 20 mg/dL [facility] Creatinine 0.75(L) 0.80 - 1.50 mg/dL [facility] Sodium 142 135 - 145 mmol/L [facility] Potassium 4.5 3.5 - 5.0 mmol/L [facility] Comment: Please note: ??Patients with WBC >100,000 may have falsely elevated Potassium levels. ??For accurate Potassium quantification in these patients send serum separator tube (gold top) for subsequent determinations. ??Contact the Clinical Chemistry Laboratory if there are any questions. Chloride 103 98 - 107 mmol/L [facility] Carbon Dioxide 26 22 - 31 mmol/L [facility] Anion Gap 13 5 - 15 mmol/L [facility] Calcium 9.6 8.5 - 10.5 mg/dL [facility] Protein, Total 7.4 6.1 - 8.0 gm/dL [facility] Albumin 4.6 3.2 - 5.2 gm/dL [facility] Aspartate Aminotransferase 23 0 - 39 unit/L [facility] Alanine Aminotransferase 22 0 - 55 unit/L [facility] Alkaline Phosphatase 58 40 - 120 unit/L [facility] Bilirubin, Total 0.6 0.2 - 1.3 mg/dL [facility] Est Glomerular Filtration Rate 89 >=60 mL/min/1. 73 m?? [facility] Comment: The eGFR was calculated using the CKD-EPI equation. As with all creatinine based estimates of kidney function, eGFR values calculated with the CKD-EPI equation are not accurate in patients with acute kidney failure, extremes of body mass or the acutely ill. http://[employer]/[facility] NORMANnkf eGFR 103 >=60 mL/min/1. 73 m?? [facility] Comment: The eGFR was calculated using the CKD-EPI equation. As with all creatinine based estimates of kidney function, eGFR values calculated with the CKD-EPI equation are not accurate in patients with acute kidney failure, extremes of body mass or the acutely ill. http://[employer]/[facility] NORMANnkf Blood specimen (specimen) 03/04/2018 12:35 PM EDT 03/04/2018 12:41 PM EDT Narrative Resulting Agency Comment Spec In Lab Lula Bostonromario MEAL TEMPERER CHEMISTRY ORDERABLES [facility] [place] [address] * PSA (03/04/2018 12:35 PM EDT) Prostate Specific Antigen (Ultrasensitiv e) 0.10 0.00 - 4.00 ng/mL [facility] Blood specimen (specimen) 03/04/2018 12:35 PM EDT 03/04/2018 12:41 PM EDT Narrative Resulting Agency Comment Spec In Lab Lula Mark Olya MEAL TEMPERER CHEMISTRY ORDERABLES [facility] [place] [address] documented in this encounter Visit Diagnoses Diagnosis Prostate cancer Malignant neoplasm of prostate documented in this encounter Care Teams Telegraph Plant Maintainer Relationship Specialty Start Date End Date Michael Franco MD [address] [place] [address] PCP - General 04/03/10 05/15/21 documented as of this encounter
--- OUTSIDE RECORDS SUMMARY | 2024-01-09 01:26 | XMS_ITS | Encounter Summary ---
[place] [address] Care Team Providers Care Lap Grinder Name Role Phone Michael Franco MD Primary Care Provider [phone] Reason for Visit * Reason Comments Prostate Cancer Encounter Details Date Type Department Care Team (Late st Contact Info) Description 03/11/2012 11:30 AM EDT Follow-Up Hematology Oncology at [address] [phone] John Wilson MD [address] [place] [address] Prostate cancer (Primary Dx) Discharge Disposition: Home Social History Tobacco Use [...] Sign Reading Time Taken Comments Blood Pressure 150/79 03/11/2012 11:25 AM EDT Pulse 68 03/11/2012 11:25 AM EDT Temperature 36.6 ??C (97.9 ??F) 03/11/2012 11:25 AM E DT Respiratory Rate 18 03/11/2012 11:25 AM EDT Oxygen Saturation 98% 03/11/2012 11:25 AM EDT Inhaled Oxygen Concentration - - Weight 114.3 kg (252 lb) 03/11/2012 11:25 AM EDT Height 185.4 cm (6' 0.99) 03/11/2012 11:25 AM E DT Body Mass Index 33.25 03/11/2012 11:25 AM EDT documented in this encounter Progress Notes * John Wilson MD - 03/11/2012 12:31 PM EDT Problem list 1. Prostate cancer Diagnosed in 2006 with a PSA of 4.8. He underwent laparoscopic prostatectomy. He was found of [place]'s 7 with perineural invasion but no extracapsular extension. He did well until his PSA began to rise in 2010. It andreina to 0.13 in January of 2011 and radiation was started along with Lupron in February of 2001. He completed radiation therapy July 03, 2011. 2. Aortic stenosis S/P Bovine Aortic valve replacement History present illness: Maribell comes in today for followup. She's been off Lupron since last July and is starting to feel his old self again. Since we last saw him he has had his aortic valve replacement and notes his surgery went well and he is feeling great. He denies any issues or problems. He is urinating fine and hasno particular bone pain and has no bowel problems. Last visit here at the cancer center he is given the option of going on low-dose Casodex. He has decided against it. Past medical history and social history are reviewed and unchanged from when he was seen in October. Past Medical History Diagnosis Date ??? Prostate cancer ??? Hypertension ??? Hypercholesteremia Past Surgical History Procedure Date ??? Prostatectomy 2006 ??? Appendectomy ??? Tonsillectomy as a child ??? Replace aort valv, prosth valv 12/05/2011 @REPLACE AORTIC VALVE, W\CPB, W\PROSTHETIC VALVE performed by ERINN RAMIREZ at [facility] MA[facility] OR History Social History ??? Marital Status: Spouse Name: N/A Number of Children: N/A ??? Years of Education: N/A Occupational History ??? Not on file. Social History Main Topics ??? Smoking status: Former Smoker Types: Cigars ??? Smokeless tobacco: Never Used ??? Alcohol Use: 4.2 oz/week 7 Shots of liquor per week ??? Drug Use: No ??? Sexually Active: Yes Other Topics Concern ??? Not on file Social History Narrative ??? No narrative on file Current outpatient prescriptions ordered prior to encounter Medication Sig Dispense Refill ??? acetaminophen (TYLENOL) 500 mg tablet Take 1-2 tablets by mouth every 6 hours as needed for Pain. ??? ibuprofen (ADVIL;MOTRIN) 200 mg tablet Take 3 tablets by mouth every 8 hours as needed for Pain. ??? metoprolol tartrate (LOPRESSOR) 25 mg tablet Take 1 tablet by mouth 2 times daily. 60 tablet 1 ??? aspirin 81 mg EC tablet Take 81 mg by mouth daily. ??? MULTI-VITAMIN ORAL Take by mouth daily. ??? ERGOCALCIFEROL, VITAMIN D2, (VITAMIN D ORAL) ??? GLUCOSAMINE HCL/CHONDRO EVANS A (GLUCOSAMINE-CHONDROITIN ORAL) ??? senna-docusate (PERICOLACE) 8.6-50 mg per tablet Take 2 tablets by mouth daily. ??? Flaxseed Oil 1,000 mg Cap No Known Allergies Review of Systems Constitutional: Negative for fever, [...] MARIBELL KAUFFMAN SR. ( ) as of 03/11/2012 12:28 Ref. Range 10/09/2010 13:08 02/04/2011 08:55 07/18/2011 11:36 10/10/2011 13:26 03/09/2012 09:17 PSA Latest Range: 0.00-4.00 ng/mL 0.09 0.13 <0.03 <0.03 <0.03 PSA Total Latest Range: <=4.5 ng/mL <0.10 <0.10 PSA Free No range found <0.1 <0.1 Results for MARIBELL KAUFFMAN SR. ( ) as of 03/11/2012 12:28 Ref. Range 03/09/2012 09:17 Testo Total Latest Range: 2.80-8.00 ng/mL 3.25 Post op 12/16 PSA=0.04 03/18 0.03 08/17 0.0 04/18 <0.1 11/17 0.1 12/18 0.06 03/20 0.05 08/19 0.04 12/19 0.06 03/21 0.07 09/19 0.09 02/19 0.13 10/21 <0.03 Assessment/Plan: Maribell is doing well and is in remission from his prostate cancer. He well may be cured although certainly warrants following his PSA. We'll arrange for followup in 6 months with PSA CBC and CMP. He'll call if problems or issues develop in the interim. documented in this encounter Plan of Treatment Upcoming Encounters Date Type Department Care Team (Late st Contact Info) Description 01/20/2024 9:30 AM EDT Office Visit Hematology/Oncology at [address] [phone] Miguelina Lucia APRN [facility] [place] [address] 02/27/2024 2:15 PM EDT Office Visit Dermatology at [place] [address] [place] [address] Eliel Vanessa MD [address], [place] [address] documented as of this encounter Results * PSA (09/10/2012 12:19 PM EDT) Pathologist [facility] Prostate Specific Antigen (Ultrasensitiv e) <0.03 0.00 - 4.00 ng/mL [facility] Blood specimen (specimen) 09/10/2012 12:19 PM EDT 09/10/2012 12:19 PM EDT Narrative Resulting Agency Comment Spec In Lab John Wilson MD CHEMISTRY ORDERABLES [facility] * (ABNORMAL) Comprehensive metabolic panel (non-fasting) (09/10/2012 12:19 PM EDT) Pathologist [facility] Glucose 93 60 - 199 mg/dL [facility] Comment:Diabetes: >=200 mg/d L plus symptoms Blood Urea Nitrogen 19 10 - 20 mg/dL [facility] Creatinine 0.70(L) 0.80 - 1.50 mg/dL [facility] Comment: Please note that the pediatric reference intervals supplied above were not validated at [facility]. Results from pediatric patients should be interpreted in conjunction to the patient's age, height and muscle mass. Sodium 140 135 - 145 mmol/L [facility] Potassium 4.3 3.5 - 5.0 mmol/L [facility] Comment: Please note: ??Patients with WBC >100,000 may have falsely elevated Potassium levels. ??For accurate Potassium quantification in these patients send serum separator tube (gold top) for subsequent determinations. ??Contact the Clinical Chemistry Laboratory if there are any questions. Chloride 105 98 - 107 mmol/L [facility] Carbon Dioxide 26 22 - 31 mmol/L [facility] Anion Gap 9 5 - 15 mmol/L [facility] Calcium 9.3 8.5 - 10.5 mg/dL [facility] Protein, Total 7.2 6.4 - 8.3 gm/dL [facility] Albumin 4.5 3.2 - 5.2 gm/dL [facility] Aspartate Aminotransferase 23 0 - 39 unit/L [facility] Alanine Aminotransferase 29 0 - 55 unit/L [facility] Alkaline Phosphatase 64 40 - 120 unit/L [facility] Bilirubin, [...] the following links into your internet browser. http://www.nkdep.nih.gov/lab-evaluation.shtml http://www.kidney.org/professionals/ Blood specimen (specimen) 09/10/2012 12:19 PM EDT 09/10/2012 12:19 PM EDT Narrative Resulting Agency Comment Spec In Lab John Wilson MD [facility]LES [facility] * (ABNORMAL) CBC (with Diff) (09/10/2012 12:19 PM EDT) White Blood Cell 5.3 4.0 - 10.0 x10(3)/mc L [facility] Red Blood Cell 4.53(L) 4.63 - 6.08 x10(6)/mc L [facility] Hemoglobin 15.3 13.7 - 17.5 gm/dL [facility] Hematocrit 44.3 40.0 - 51.0 % [facility] Mean Cell Volume 97.8(H) 79.0 - 92.0 fL [facility] Mean Cell Hemoglobin 33.8(H) 25.6 - 32.2 pg [facility] Mean Cell Hemoglobin Concentration 34.5 32.0 - 36.5 gm/dL [facility] Platelet 175 145 - 370 x10(3)/mc L [facility] RDW Standard Deviation 46.1(H) 35.0 - 46.0 fL [facility] RDW coefficient of variation 13.0 10.9 - 14.4 % [facility] Mean Platelet Volume 10.8 9.0 - 12.0 fL [facility] Blood specimen (specimen) 09/10/2012 12:19 PM EDT 09/10/2012 12:19 PM EDT Narrative Resulting Agency Comment Spec In Lab John Wilson MD HEMATOLOGY ORDERABLE S [facility] documented in this encounter Visit Diagnoses Diagnosis Prostate cancer- Primary Malignant neoplasm of prostate documented in this encounter Care Teams Lap Grinder Relationship Specialty Start Date End Date Michael Franco MD [address] [place] [address] PCP - General 04/03/10 05/15/21 documented as of this encounter
--- OUTSIDE RECORDS SUMMARY | 2024-01-09 01:26 | XMS_ITS | Encounter Summary ---
Author Organization [place] [address] Care Team Providers Care Chief Data Officer Name Role Phone Michael Franco MD Primary Care Provider [phone] Encounter Details Date Type Department Care Team (Latest Contact Info) Description 03/12/2016 10:15 AM EDT Laboratory Appointment Lab [address] [place] [address] Prostate cancer Social History Tobacco [...] AM EDT Office Visit Hematology/Oncology at [address] [phone] Miguelina Lucia APRN [facility] [place] [address] 02/27/2024 2:15 PM EDT Office Visit Dermatology at [address] [place] [phone] Eliel Vanessa MD [address], MICHAEL Flores DERMATOLOGY [place], [place] [phone] documented as of this encounter Procedures Procedure Name Priority Date/Time Associated Diagnosis Comments HEMOGRAM Routine 03/12/2016 10:29 AM EDT Prostate cancer DIFFERENTIAL, AUTOMATED Routine 03/12/2016 10:29 AM EDT Prostate cancer CBC (WITH DIFF) Routine 03/12/2016 10:29 AM EDT Prostate cancer PSA (ULTRASENSITIVE), TOTAL AND FREE Routine 03/12/2016 10:29 AM EDT Prostate cancer COMPREHENSIVE METABOLIC PANEL Routine 03/12/2016 10:29 AM EDT Prostate cancer documented in this encounter Results * Differential, Automated (03/12/2016 10:29 AM EDT) Neutrophil % 61.5 % [facility] Neutrophil Absolute 3.85 1.70 - 6.10 x10(3)/[facility] Lymph % 21.7 % [facility] Lymphocytes Abs 1.4 0.9 - 3.2 x10(3)/[facility] Monocyte % 10.7 % [facility] Monocyte Abs 0.7 0.3 - 0.9 x10(3)/[facility] Eos % 4.8 % [facility] Eosinophils Abs 0.3 0.0 - 0.4 x10(3)/[facility] Basophil % 1.0 % [facility] Baso Absolute 0.1 0.0 - 0.1 x10(3)/[facility] Immature Gran % 0.30 % [facility] Comment: Immature granulocytes(IG's)percentage and absolute count will include metamyelocytes, myelocytes, and promyelocytes. Blood smears from CBCs yielding IG's will be scanned manually for concordance. If this scan disagrees with the automated IG or if promyelocytes are noted, a manual differential will be performed. Immature Gran Absolute 0.02 0.00 - 0.04 x10(3)/[facility] Blood specimen (specimen) 03/12/2016 10:29 AM EDT 03/12/2016 10:41 AM EDT Narrative Resulting Agency Comment Spec In Lab John Wilson MD HEMATOLOGY ORDERABLE S [facility] [place] [address] * (ABNORMAL) Hemogram (03/12/2016 10:29 AM EDT) White Blood Cell 6.3 4.0 - 9.5 x10(3)/[facility] LAB[facility] Red Blood Cell 4.50(L) 4.58 - 5.54 x10(6)/[facility] Hemoglobin 15.1 13.7 - 16.5 gm/dL [facility] Hematocrit 43.1 40.5 - 48.5 % [facility] Mean Cell Volume 95.8(H) 82.9 - 93.1 [facility] Mean Cell Hemoglobin 33.6(H) 27.5 - 32.1 pg [facility] Mean Cell Hemoglobin Concentration 35.0 32.0 - 35.7 gm/dL [facility] Platelet 181 145 - 357 x10(3)/ L [facility] RDW Standard Deviation 45.4(H) 36.0 - 45.0 [facility] RDW coefficient of variation 12.8 11.4 - 13.8 % [facility] Mean Platelet Volume 10.3 7.6 - 12.9 [facility] NRBC% auto 0.0 % [facility] NRBC Absolute 0.000 0.000 - 0.000 x10(3)/ L [facility] Blood specimen (specimen) 03/12/2016 10:29 AM EDT 03/12/2016 10:41 AM EDT Narrative Resulting Agency Comment Spec In Lab John Wilson MD HEMATOLOGY ORDERABLE S [facility] [place] [address] * PSA, total and free (03/12/2016 10:29 AM EDT) Prostate Specific Antigen (Ultrasensitiv e) 0.03 0.00 - 4.00 ng/mL [facility] Prostate Specific Antigen, Free <0.1 ng/mL [facility] PSA % Free Not Calculated % [facility] Comment: The percent free PSA was not calculated for this sample as the total PSA value was not in the range of 4-10 ng/mL. ??The utility of the percent free PSA in the setting of total PSA values below 4 or above 10 ng/mL has not been evaluated. Probability of finding [employer] on needle biopsy by age in years: % fPSA ? 50-59yrs ? 60-69yrs ? >=70yrs <=10 ? 49.2 ? 57.5 ? 64.5 11-18 ?26.9 ? 33.9 ? 40.8 19-25 ?18.2 ? 23.9 ? 29.7 >25 ? 9.1 ? 12.2 ? 15.8 Blood specimen (specimen) 03/12/2016 10:29 AM EDT 03/12/2016 10:41 AM EDT Narrative Resulting Agency Comment Spec In Lab John Wilson MD CHEMISTRY ORDERABLES [facility] [place] [address] * (ABNORMAL) Comprehensive metabolic panel (non-fasting) (03/12/2016 10:29 AM EDT) Glucose 107 65 - 199 mg/dL [facility] Comment:Diabetes: >=200 mg/d L plus symptoms Blood Urea Nitrogen 21(H) 10 - 20 mg/dL [facility] Creatinine 0.88 0.80 - 1.50 mg/dL [facility] Comment: Please note that the pediatric reference intervals supplied above were not validated at [facility]. Results from pediatric patients should be interpreted in conjunction to the patient's age, height and muscle mass. Sodium 140 135 - 145 mmol/L [facility] Potassium 4.7 3.5 - 5.0 mmol/L [facility] Comment: Please note: ??Patients with WBC >100,000 may have falsely elevated Potassium levels. ??For accurate Potassium quantification in these patients send serum separator tube (gold top) for subsequent determinations. ??Contact the Clinical Chemistry Laboratory if there are any questions. Chloride 101 98 - 107 mmol/L [facility] Carbon Dioxide 26 22 - 31 mmol/L [facility] Anion Gap 13 5 - 15 mmol/L [facility] Calcium 9.5 8.5 - 10.5 mg/dL [facility] Protein, Total 7.2 6.1 - 8.0 gm/dL [facility] Albumin 4.5 3.2 - 5.2 gm/dL [facility] Aspartate Aminotransferase 26 0 - 39 unit/L [facility] Alanine Aminotransferase 31 0 - 55 unit/L [facility] Alkaline Phosphatase 64 40 - 120 unit/L [facility] Bilirubin, Total 0.5 0.2 - 1.3 mg/dL [facility] Bilirubin, Direct 0.1 0.0 - 0.3 mg/dL [facility] Est Glomerular Filtration Rate >60 >=60 [facility] Comment: This estimated GFR (eGFR) value was [...] the following links into your internet browser. [email or web address] Blood specimen (specimen) 03/12/2016 10:29 AM EDT 03/12/2016 10:41 AM EDT Narrative Resulting Agency Comment Spec In Lab John Wilson MD CHEMISTRY ORDERABLES [facility] [place] [address] documented in this encounter Visit Diagnoses Diagnosis Prostate cancer Malignant neoplasm of prostate documented in this encounter Care Teams Chief Data Officer Relationship Specialty Start Date End Date Michael Franco MD [address] [place] [address] PCP - General 04/03/10 05/15/21 documented as of this encounter
--- OUTSIDE RECORDS SUMMARY | 2024-01-09 01:26 | XMS_ITS | Encounter Summary ---
[place] [address] Care Team Providers Care Milieu Coordinator Name Role Phone Michael Franco MD Primary Care Provider [phone] Reason for Visit * Reason Comments Prostate Cancer Encounter Details Date Type Department Care Team (Late st Contact Info) Description 09/15/2012 2:30 PM EDT Follow-Up Hematology Oncology at [address] [phone] John Wilson MD [address] [place] [address] Prostate cancer (Primary Dx) Discharge Disposition: [...] Sign Reading Time Taken Comments Blood Pressure 130/77 09/15/2012 2:17 PM EDT Pulse 73 09/15/2012 2:17 PM EDT Temperature 36.4 ??C (97.5 ??F) 09/15/2012 2:17 PM ED T Respiratory Rate 18 09/15/2012 2:17 PM EDT Oxygen Saturation 96% 09/15/2012 2:17 PM EDT Inhaled Oxygen Concentration - - Weight 117 kg (258 lb) 09/15/2012 2:17 PM EDT Height 185.4 cm (6' 0.99) 09/15/2012 2:17 PM ED T Body Mass Index 34.05 09/15/2012 2:17 PM EDT documented in this encounter Progress Notes * John Wilson MD - 09/15/2012 2:36 PM EDT Problem list 1. Prostate cancer Diagnosed in 2006 with a PSA of 4.8. He underwent laparoscopic prostatectomy. He was found of Michelle's 7 with perineural invasion but no extracapsular extension. He did well until his PSA began to rise in 2010. It anderina to 0.13 in January of 2011 and radiation was started along with Lupron in February of 2001. He completed radiation therapy July 03, 2011. 2. Aortic stenosis S/P Bovine Aortic valve replacement History present illness: Maribell comes in today for followup. He's been off Lupron since July 2011 and is starting to feel his old self again. The only residual problem he has is occasional soft bowel movements. This is not an issue for him. He is doing well as far as urination with a good stream and no difficulty there. Past history and social history are reviewed. He's going to retire here shortly from [employer] and is looking forward to that. 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 Review of Systems Constitutional: Negative for fever, [...] KAUFFMAN Padmaja VARNER ( ) as of 09/15/2012 14:36 Ref. Range 02/04/2011 08:55 07/18/2011 11:36 10/10/2011 13:26 03/09/2012 09:17 09/10/2012 12:19 PSA Latest Range: 0.00-4.00 ng/mL 0.13 <0.03 <0.03 <0.03 <0.03 Assessment/Plan: Maribell is doing well and [...] 9:30 AM EDT Office Visit Hematology/Oncology at [address] [phone] Miguelina Lucia APRN [facility] [place] [address] 02/27/2024 2:15 PM EDT Office Visit Dermatology at [place] [address] [place] [address] Eliel Vanessa MD [address], [place] [address] documented as of this encounter Results * PSA (03/16/2013 12:59 PM EST) Prostate Specific Antigen (Ultrasensitiv e) <0.03 0.00 - 4.00 ng/mL [facility] Blood specimen (specimen) 03/16/2013 12:59 PM EST 03/16/2013 1:06 PM EST Narrative Resulting Agency Comment Spec In Lab John Wilson MD CHEMISTRY ORDERABLES [facility] * Comprehensive metabolic panel (non-fasting) (03/16/2013 12:59 PM EST) Pathologist [facility] Glucose 101 60 - 199 mg/dL [facility] Comment:Diabetes: >=200 mg/d L plus symptoms Blood Urea Nitrogen 16 10 - 20 mg/dL [facility] Creatinine 0.87 0.80 - 1.50 mg/dL [facility] Comment: Please note that the pediatric reference intervals supplied above were not validated at [facility]. Results from pediatric patients should be interpreted in conjunction to the patient's age, height and muscle mass. Sodium 139 135 - 145 mmol/L [facility] Potassium 4.5 3.5 - 5.0 mmol/L [facility] Comment: Please note: ??Patients with WBC >100,000 may have falsely elevated Potassium levels. ??For accurate Potassium quantification in these patients send serum separator tube (gold top) for subsequent determinations. ??Contact the Clinical Chemistry Laboratory if there are any questions. Chloride 101 98 - 107 mmol/L [facility] Carbon Dioxide 27 22 - 31 mmol/L [facility] Anion Gap 11 5 - 15 mmol/L [facility] Calcium 9.8 8.5 - 10.5 mg/dL [facility] Protein, Total 7.3 6.4 - 8.3 gm/dL [facility] Albumin 4.6 3.2 - 5.2 gm/dL [facility] Aspartate Aminotransferase 25 0 - 39 unit/L [facility] Alanine Aminotransferase 31 0 - 55 unit/L [facility] Alkaline Phosphatase 71 40 - 120 unit/L [facility] Bilirubin, [...] internet browser. http://www.nkdep.nih.gov/lab-evaluation.shtml http://www.kidney.org/professionals/ Blood specimen (specimen) 03/16/2013 12:59 PM EST 03/16/2013 1:06 PM EST Narrative Resulting Agency Comment Spec In Lab John Wilson MD CHEMISTRY ORDERABLES [facility] * (ABNORMAL) CBC (with Diff) (03/16/2013 12:59 PM EST) White Blood Cell 6.1 4.0 - 10.0 x10(3)/mc L [facility] Red Blood Cell 4.64 4.63 - 6.08 x10(6)/mc L [facility] Hemoglobin 15.9 13.7 - 17.5 gm/dL [facility] Hematocrit 44.8 40.0 - 51.0 % [facility] Mean Cell Volume 96.6(H) 79.0 - 92.0 fL [facility] Mean Cell Hemoglobin 34.3(H) 25.6 - 32.2 pg [facility] Mean Cell Hemoglobin Concentration 35.5 32.0 - 36.5 gm/dL [facility] Platelet 173 145 - 370 x10(3)/mc L [facility] RDW Standard Deviation 45.0 35.0 - 46.0 fL [facility] RDW coefficient of variation 13.0 10.9 - 14.4 % [facility] Mean Platelet Volume 10.9 9.0 - 12.0 fL [facility] Blood specimen (specimen) 03/16/2013 12:59 PM EST 03/16/2013 1:06 PM EST Narrative Resulting Agency Comment Spec In Lab John Wilson MD HEMATOLOGY ORDERABLE S [facility] documented in this encounter Visit Diagnoses Diagnosis Prostate cancer- Primary Malignant neoplasm of prostate documented in this encounter Care Teams Milieu Coordinator Relationship Specialty Start Date End Date Michael Franco MD [address] [place] [address] PCP - General 04/03/10 05/15/21 documented as of this encounter
--- OUTSIDE RECORDS SUMMARY | 2024-01-09 01:26 | XMS_ITS | Encounter Summary ---
[place] [address] Care Team Providers Care Costume Shop Coordinator Name Role Phone Michael Franco MD Primary Care Provider [phone] Encounter Details Date Type Department Care Team (Latest Contact Info) Description 10/20/2013 2:17 PM EDT - 10/20/2013 11:59 PM EDT Hospital Encounter Hematology [place] [phone] John Wilson MD [address] [place] [address] [place], [place] [id number] Prostate cancer Discharge Disposition: Home Social History [...] 9:30 AM EDT Office Visit Hematology/Oncology at [address] [phone] Miguelina Lucia APRN [facility] DR [place] [address] 02/27/2024 2:15 PM EDT Office Visit Dermatology at [address] [place] [phone] Eliel Vanessa MD [address], [place]HAEL [place] [address] documented as of this encounter Procedures Procedure Name Priority Date/Time Associated Diagnosis Comments PSA (ULTRASENSITIVE) Routine 10/20/2013 2:27 PM EDT Prostate cancer documented in this encounter Results * PSA (10/20/2013 2:27 PM EDT) Prostate Specific Antigen (Ultrasensitiv e) <0.03 0.00 - 4.00 ng/mL [facility] Blood specimen (specimen) 10/20/2013 2:27 PM EDT 10/20/2013 2:38 PM EDT Narrative Resulting Agency Comment Spec In Lab John Wilson MD CHEMISTRY ORDERABLES [facility] documented in this encounter Visit Diagnoses Diagnosis Prostate cancer Malignant neoplasm of prostate documented in this encounter Care Teams Costume Shop Coordinator Relationship Specialty Start Date End Date Michael Franco MD [address] [place] [address] PCP - General 04/03/10 05/15/21 documented as of this encounter
--- OUTSIDE RECORDS SUMMARY | 2024-01-09 01:26 | XMS_ITS | Encounter Summary ---
Author Organization [facility] [address] Care Team Providers Care Union Contract Representative Name Role Phone Michael Franco MD Primary Care Provider [phone] Encounter Details Date Type Department Care Team (Late st Contact Info) Description 03/20/2017 Orders Only Hematology/Oncology at [address] [phone] John Wilson MD [address] [place] [address] Prostate cancer Social History Tobacco Use [...] 9:30 AM EDT Office Visit Hematology/Oncology at [address] [phone] Miguelina Lucia APRN [facility] DR [facility] ONCOLOGY [place], [place] [phone] 02/27/2024 2:15 PM EDT Office Visit Dermatology at [place] [address] [place] [address] Eliel Vanessa MD [address], [place] [address] documented as of this encounter Results * Comprehensive metabolic panel (non-fasting) (03/20/2017 12:04 PM EST) Glucose 102 65 - 199 mg/dL [facility] Comment:Diabetes: >=200 mg/d L plus symptoms Blood Urea Nitrogen 19 10 - 20 mg/dL [facility] Creatinine 0.87 0.80 - 1.50 mg/dL [facility] Sodium 141 135 - 145 mmol/L [facility] Potassium 4.5 3.5 - 5.0 mmol/L [facility] Comment: Please note: ??Patients with WBC >100,000 may have falsely elevated Potassium levels. ??For accurate Potassium quantification in these patients send serum separator tube (gold top) for subsequent determinations. ??Contact the Clinical Chemistry Laboratory if there are any questions. Chloride 101 98 - 107 mmol/L [facility] Carbon Dioxide 28 22 - 31 mmol/L [facility] Anion Gap 12 5 - 15 mmol/L [facility] Calcium 9.1 8.5 - 10.5 mg/dL [facility] Protein, Total 7.3 6.1 - 8.0 gm/dL [facility] Albumin 4.5 3.2 - 5.2 gm/dL [facility] Aspartate Aminotransferase 20 0 - 39 unit/L [facility] Alanine Aminotransferase 20 0 - 55 unit/L [facility] Alkaline Phosphatase 61 40 - 120 unit/L [facility] Bilirubin, Total 0.6 0.2 - 1.3 mg/dL [facility] Est Glomerular Filtration Rate >60 >=60 [facility] Comment: The reported eGFR should be multiplied by 1.2 for patients. The MDRD is not an appropriate measure of renal function for patients with body mass extremes or in patients with acute kidney failure. [email or web address] Blood specimen (specimen) 03/20/2017 12:04 PM EST 03/20/2017 12:09 PM EST Narrative Resulting Agency Comment Spec In Lab John Wilson MD CHEMISTRY ORDERABLES Performing Organization Address City/[facility] Co de Phone Number [facility] [place] [address] * PSA (03/20/2017 12:04 PM EST) Prostate Specific Antigen (Ultrasensitiv e) 0.12 0.00 - 4.00 ng/mL [facility] Blood specimen (specimen) 03/20/2017 12:04 PM EST 03/20/2017 12:09 PM EST Narrative Resulting Agency Comment Spec In Lab John Wilson MD CHEMISTRY ORDERABLES Performing Organization Address City/[facility]/ZIP Co de Phone Number [facility] [place] [address] documented in this encounter Visit Diagnoses Diagnosis Prostate cancer Malignant neoplasm of prostate documented in this encounter Care Teams Union Contract Representative Relationship Specialty Start Date End Date Michael Franco MD [address] [place] [address] PCP - General 04/03/10 05/15/21 documented as of this encounter
--- OUTSIDE RECORDS SUMMARY | 2024-01-09 01:26 | XMS_ITS | Encounter Summary ---
[place] [address] Care Team Providers Care Bulk Delivery Driver Name Role Phone Michael Franco MD Primary Care Provider [phone] Reason for Visit * Reason Comments Prostate Cancer Encounter Details Date Type Department Care Team (Late st Contact Info) Description 03/30/2013 2:00 PM EST Follow-Up Hematology Oncology at [address] [phone] John Wilson MD [address] [place] [address] Prostate cancer (Primary Dx) Discharge Disposition: [...] Sign Reading Time Taken Comments Blood Pressure 149/75 03/30/2013 1:52 PM EST Pulse 67 03/30/2013 1:52 PM EST Temperature 36.4 ??C (97.5 ??F) 03/30/2013 1:52 PM ES T Respiratory Rate 16 03/30/2013 1:52 PM EST Oxygen Saturation 97% 03/30/2013 1:52 PM EST Inhaled Oxygen Concentration - - Weight 116.1 kg (256 lb) 03/30/2013 1:52 PM EST Height 185.4 cm (6' 0.99) 03/30/2013 1:52 PM ES T Body Mass Index 33.78 03/30/2013 1:52 PM EST documented in this encounter Progress Notes * John Wilson MD - 03/30/2013 2:23 PM EST Problem list 1. Prostate cancer Diagnosed in 2006 with a PSA of 4.8. He underwent laparoscopic prostatectomy. 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 He is exercising more and has gotten his cholesterol down and feels he is in the best health he's been in along time. He recently went on a 9 mile hike and left the young [employer] and the dust. Past history and social history are reviewed. He is enjoying his long-term Review of Systems Constitutional: Negative for fever, [...] normal Neurologic: Normal Results for MARIBELL KAUFFMAN ( ) as of 09/15/2012 14:36 Ref. Range 02/04/2011 08:55 07/18/2011 11:36 10/10/2011 13:26 03/09/2012 09:17 09/10/2012 12:19 03/16/13 PSA Latest Range: 0.00-4.00 ng/mL 0.13 <0.03 <0.03 <0.03 <0.03 <0.03 Assessment/Plan: Maribell is doing well and is in remission from his prostate cancer. He well may be cured although certainly warrants following his PSA. We'll arrange for followup in 12 months with PSA CBC and CMP. We'll also check a PSA in 6 months to make sure it staying down. If he is fine over this next year I think we can go to yearly followup. He'll call if problems or issues develop in the interim. documented in this encounter Plan of Treatment Upcoming Encounters Date Type Department Care Team (Late st Contact Info) Description 01/20/2024 9:30 AM EDT Office Visit Hematology/Oncology at [address] [phone] Miguelina Lucia APRN [facility] [place] [address] 02/27/2024 2:15 PM EDT Office Visit Dermatology at [place] [address] [place] [address] Eliel Vanessa MD [address], MICHAEL [place] [address] documented as of this encounter Results * (ABNORMAL) Comprehensive metabolic panel (non-fasting) (03/16/2014 1:00 PM EST) [facility] Glucose 103 60 - 199 mg/dL CERNER MILLENNIUM Comment:Diabetes: >=200 mg/d L plus symptoms Blood Urea Nitrogen 20 10 - 20 mg/dL CERNER MILLENNIUM Creatinine 0.79(L) 0.80 - 1.50 mg/dL [facility]ERNER MILLENNIUM Comment: Please note that the pediatric reference intervals supplied above were not validated at [facility]. Results from pediatric patients [...] MILLENNIUM Est Glomerular Filtration Rate >60 >=60 [facility] Comment: This estimated GFR (eGFR) value was [...] the following links into your internet browser. http://World First/DHnkdep http://[employer]/DHMCnkf Blood specimen (specimen) 03/16/2014 1:00 PM EST 03/16/2014 1:07 PM EST Narrative Resulting Agency Comment Spec In Lab John Wilson MD CHEMISTRY ORDERABLES Performing Organization Address [facility] de Phone Number [facility] * PSA (03/16/2014 1:00 PM EST) Prostate Specific Antigen (Ultrasensitiv e) <0.03 0.00 - 4.00 ng/mL [facility] Blood specimen (specimen) 03/16/2014 1:00 PM EST 03/16/2014 1:07 PM EST Narrative Resulting Agency Comment Spec In Lab John Wilson MD CHEMISTRY ORDERABLES Performing Organization Address [facility] de Phone Number [facility] * PSA (10/20/2013 2:27 PM EDT) Prostate Specific Antigen (Ultrasensitiv e) <0.03 0.00 - 4.00 ng/mL [facility] Blood specimen (specimen) 10/20/2013 2:27 PM EDT 10/20/2013 2:38 PM EDT Narrative Resulting Agency Comment Spec In Lab John Wilson MD CHEMISTRY ORDERABLES Performing Organization Address [facility]/ZIP Co de Phone Number [facility] documented in this encounter Visit Diagnoses Diagnosis Prostate cancer- Primary Malignant neoplasm of prostate documented in this encounter Care Teams Bulk Delivery Driver Relationship Specialty Start Date End Date Michael Franco MD [address] [place] [address] PCP - General 04/03/10 05/15/21 documented as of this encounter
--- OUTSIDE RECORDS SUMMARY | 2024-01-09 01:26 | XMS_ITS | Encounter Summary ---
[place] [address] Care Team Providers Care Tonguer Name Role Phone Michael Franco MD Primary Care Provider [phone] Encounter Details Date Type Department Care Team (Late st Contact Info) Description 03/16/2015 2:30 PM EST Office Visit Hematology/Oncology at [address] [phone] John Wilson MD [address] [place] [phone] Prostate cancer Social History Tobacco Use Types [...] Sign Reading Time Taken Comments Blood Pressure 139/74 03/16/2015 2:40 PM EST Pulse 63 03/16/2015 2:40 PM EST Temperature 36.9 ??C (98.4 ??F) 03/16/2015 2:40 PM ES T Respiratory Rate 16 03/16/2015 2:40 PM EST Oxygen Saturation 98% 03/16/2015 2:40 PM EST Inhaled Oxygen Concentration - - Weight 117.9 kg (260 lb) 03/16/2015 2:40 PM EST Height - - Body Mass Index 34.31 03/24/2014 2:59 PM EST documented in this encounter Progress Notes * John Wilson MD - 03/16/2015 2:49 PM EST Problem list 1. Prostate cancer [...] since July 2011 and to feel great. Subjective: Maribell comes in today for followup. He is continuing to do well and enjoy assisted without any difficulties or medical problems. His bowels are fine and he is not having any urinary difficulties. Review of systems otherwise negative. He has no significant bone pain and is physically active. Subjective: Maribell comes in today for followup on his prostate cancer. He has been off any treatment since 2011 and has continued to have a nondetectable PSA. He is doing well overall. He has a little bit of frequency with his urination but other than that no problems at all. Bowel movements are fine. He is not having any particular bone pain, no other difficulties. Past history and social history are reviewed. He is enjoying his assisted Review of Systems Constitutional: Negative for fever, [...] MARIBELL KAUFFMAN SR. ( ) as of 09/15/2012 14:36 Ref. Range 02/04/2011 08:55 07/18/2011 11:36 10/10/2011 13:26 03/09/2012 09:17 09/10/2012 12:19 03/16/13 03/16/14 03/16/2015 PSA Latest Range: 0.00-4.00 ng/mL 0.13 <0.03 <0.03 <0.03 <0.03 <0.03 <0.03 <0.03 Results for MARIBELL KAUFFMAN SR. ( ) as of 03/16/2015 14:48 Ref. Range 03/01/2015 12:41 WBC Latest Range: 4.0-10.0 x10(3)/mcL 5.3 RBC Latest Range: 4.63-6.08 x10(6)/mcL 4.51 (L) Hemoglobin Latest Range: 13.7-17.5 gm/dL 15.2 Hematocrit Latest Range: 40.0-51.0 % 43.6 MCV Latest Range: 79.0-92.0 fL 96.7 (H) MCH Latest Range: 25.6-32.2 pg 33.7 (H) MCHC Latest Range: 32.0-36.5 gm/dL 34.9 RDWSD Latest Range: 35.0-46.0 fL 46.5 (H) RDWCV Latest Range: 10.9-14.4 % 13.3 Platelets Latest Range: 145-370 x10(3)/mcL 178 MPV Latest Range: 9.0-12.0 fL 10.9 Neutr Abs (ANC) Latest Range: 1.50-6.30 x10(3)/mcL 3.36 Neutrophils % Latest Units: % 63.2 Immature Gran % Latest Units: % 0.40 Lymphocytes % Latest Units: % 23.9 Monocytes % Latest Units: % 7.3 Eosinophils % Latest Units: % 4.3 Basophils % Latest Units: % 0.9 Carolann Gran Abs Latest Range: 0.00-0.05 x10(3)/mcL 0.02 Lymphocytes Abs Latest Range: 1.0-3.6 x10(3)/mcL 1.3 Monocyte Abs Latest Range: 0.2-1.0 x10(3)/mcL 0.4 Eosinophils Abs Latest Range: 0.0-0.5 x10(3)/mcL 0.2 Basophils Abs Latest Range: 0.0-0.2 x10(3)/mcL 0.0 Sodium Latest Range: 135-145 mmol/L 141 Potassium Latest Range: 3.5-5.0 mmol/L 4.5 Chloride Latest Range: 98-107 mmol/L 102 CO2 Latest Range: 22-31 mmol/L 26 Anion Gap Latest Range: 5-15 mmol/L 13 BUN Latest Range: 10-20 mg/dL 16 Creatinine Latest Range: 0.80-1.50 mg/dL 0.88 Estimated GFR Latest Range: >=60 >60 Glucose Lvl Latest Range: 65-199 mg/dL 95 Calcium Latest Range: 8.5-10.5 mg/dL 9.3 Total Protein Latest Range: 6.1-8.0 gm/dL 7.2 Albumin Latest Range: 3.2-5.2 gm/dL 4.5 Total Bilirubin Latest Range: 0.2-1.3 mg/dL 0.6 Bili, Direct Latest Range: 0.0-0.3 mg/dL 0.1 Alk Phos Latest Range: 40-120 unit/L 58 AST Latest Range: 0-39 unit/L 27 ALT Latest Range: 0-55 unit/L 35 PSA Total Latest Range: 0.00-4.00 ng/mL <0.03 Assessment/Plan: Maribell is doing well and has no evidence of recurrent prostate cancer. Enough time has gone by I think yearly followup is all we need at this point so we will continue to se him on a yearly basis. He likes getting his lab at [facility] so we will go ahead and do that there as well. He knows we are available if any issues or problems develop in the interim. documented in this encounter Plan of Treatment Upcoming Encounters Date Type Department Care Team (Late st Contact Info) Description 01/20/2024 9:30 AM EDT Office Visit Hematology/Oncology at [address] [phone] Miguelina Lucia APRN [facility] [place] [address] 02/27/2024 2:15 PM EDT Office Visit Dermatology at [place] [address] [place] [address] Eliel Vanessa MD [address], [place] [address] documented as of this encounter Results * PSA, total and free (03/12/2016 10:29 AM EDT) Prostate Specific Antigen (Ultrasensitiv e) 0.03 0.00 - 4.00 ng/mL [facility] Prostate Specific Antigen, Free <0.1 ng/mL [facility] PSA % Free Not Calculated % [facility] Comment: The percent free PSA was not calculated for this sample as the total PSA value was not in the range of 4-10 ng/mL. ??The utility of the percent free PSA in the setting of total PSA values below 4 or above 10 ng/mL has not been evaluated. Probability of finding BASKET MENDER on needle biopsy by age in years: [...] In Lab John Wilson MD CHEMISTRY ORDERABLES [facility] [place] [address] * (ABNORMAL) Comprehensive metabolic panel (non-fasting) (03/12/2016 10:29 AM EDT) Glucose 107 65 - 199 mg/dL [facility] Comment:Diabetes: >=200 mg/d L plus symptoms Blood Urea Nitrogen 21(H) 10 - 20 mg/dL [facility] Creatinine 0.88 0.80 - 1.50 mg/dL [facility] Comment: Please note that the pediatric reference intervals supplied above were not validated at [facility]. Results from pediatric patients should be interpreted in conjunction to the patient's age, height and muscle mass. Sodium 140 135 - 145 mmol/L [facility] Potassium 4.7 3.5 - 5.0 mmol/L [facility] Comment: Please note: ??Patients with WBC >100,000 may have falsely elevated Potassium levels. ??For accurate Potassium quantification in these patients send serum separator tube (gold top) for subsequent determinations. ??Contact the Clinical Chemistry Laboratory if there are any questions. Chloride 101 98 - 107 mmol/L [facility] Carbon Dioxide 26 22 - 31 mmol/L [facility] Anion Gap 13 5 - 15 mmol/L [facility] Calcium 9.5 8.5 - 10.5 mg/dL [facility] Protein, Total 7.2 6.1 - 8.0 gm/dL [facility] Albumin 4.5 3.2 - 5.2 gm/dL [facility] Aspartate Aminotransferase 26 0 - 39 unit/L [facility] Alanine Aminotransferase 31 0 - 55 unit/L [facility] Alkaline Phosphatase 64 40 - 120 unit/L [facility] Bilirubin, Total 0.5 0.2 - 1.3 mg/dL [facility] Bilirubin, Direct 0.1 0.0 - 0.3 mg/dL [facility] Est Glomerular Filtration Rate >60 >=60 [facility] Comment: This estimated GFR (eGFR) [...] the following links into your internet browser. [email or web address] [email or web address] Blood specimen (specimen) 03/12/2016 10:29 AM EDT 03/12/2016 10:41 AM EDT Narrative Resulting Agency Comment Spec In Lab John Wilson MD CHEMISTRY ORDERABLES [facility] [place] [address] documented in this encounter Visit Diagnoses Diagnosis Prostate cancer Malignant neoplasm of prostate documented in this encounter Care Teams Tonguer Relationship Specialty Start Date End Date Michael Franco MD [address] [place] [address] PCP - General 04/03/10 05/15/21 documented as of this encounter
--- OUTSIDE RECORDS SUMMARY | 2024-01-09 01:26 | XMS_ITS | Encounter Summary ---
Author Organization [facility] Address [facility] [place] [address] Care Team Providers Care Director Internal Communications Name Role Phone Michael Franco MD Primary Care Provider [phone] Encounter Details Date Type Department Care Team (Latest Contact Info) Description 01/15/2012 9:47 AM EDT - 01/15/2012 10:45 AM EDT Hospital Encounter XRay at [address] [place] [phone] Aortic stenosis Social History Tobacco Use Types Packs/Day Years [...] 9:30 AM EDT Office Visit Hematology/Oncology at [address] [phone] Miguelina Lucia APRN [facility] [place] [address] 02/27/2024 2:15 PM EDT Office Visit Dermatology at [place] [address] [place] [address] Eliel Vanessa MD [address], [place] [address] documented as of this encounter Procedures Procedure Name Priority Date/Time Associated Diagnosis Comments XR CHEST PA AND LATERAL Routine 01/15/2012 10:07 AM EDT Aortic stenosis documented in this encounter Results * XR chest routine PA & lateral (01/15/2012 10:07 AM EDT) Anatomical Region Laterality Modality Chest N/A Radiographic Komal ging 01/15/2012 10:0 7 AM EDT Narrative 01/15/2012 10:23 AM EDT Examination CHEST ROUTINE PA+LAT Clinical History Reason for exam and clinical history: s/p AVR; Comparison 12/08/2011. Technique Findings There is a better degree of inflation the lungs the previously seen small pleural effusions and bibasilar atelectasis have cleared. ??The heart size has returned closer to normal. ??There is no other interval change. ??Again noted are sternotomy wires. Impression Improved inflation and clearing of bibasilar atelectasis and pleural fluid. Procedure Note Lalit Dela Cruz MD - 01/15/2012 Examination CHEST ROUTINE PA+LAT Clinical History Reason for exam and clinical history: s/p AVR; Comparison 12/08/2011. Technique Findings There is a better degree of inflation the lungs the previously seen small pleural effusions and bibasilar atelectasis have cleared. The heart sizehas returned closer to normal. There is no other interval change. Againnoted are sternotomy wires. Impression Improved inflation and clearing of bibasilar atelectasis and pleuralfluid. Kehinde Munoz MD IMG DX ORDERABLES documented in this encounter Visit Diagnoses Diagnosis Aortic stenosis Aortic valve disorders documented in this encounter Care Teams Director Internal Communications Relationship Specialty Start Date End Date Michael Franco MD [address] [address] PCP - General 04/03/10 05/15/21 documented as of this encounter
--- OUTSIDE RECORDS SUMMARY | 2024-01-09 01:26 | XMS_ITS | Encounter Summary ---
[place] [address] Care Team Providers Care Compressor Assembler Name Role Phone Michael Franco MD Primary Care Provider [phone] Encounter Details Date Type Department Care Team (Latest Contact Info) Description 09/01/2017 1:15 PM EDT Laboratory Appointment Lab [address] [place] [address] Prostate cancer Social History Tobacco [...] 9:30 AM EDT Office Visit Hematology/Oncology at [address] [phone] Miguelina Lucia APRN [facility] [address] MEDICAL [place] [address] 02/27/2024 2:15 PM EDT Office Visit Dermatology at [address] [place] [phone] Eliel Vanessa MD [address], MICHAEL Flores DERMATOLOGY [place], [place] [phone] documented as of this encounter Procedures Procedure Name Priority Date/Time Associated Diagnosis Comments HEMOGRAM Routine 09/01/2017 1:22 PM EDT Prostate cancer DIFFERENTIAL, AUTOMATED Routine 09/01/2017 1:22 PM EDT Prostate cancer CBC (WITH DIFF) Routine 09/01/2017 1:22 PM EDT Prostate cancer PSA (ULTRASENSITIVE) Routine 09/01/2017 1:22 PM EDT Prostate cancer COMPREHENSIVE METABOLIC PANEL Routine 09/01/2017 1:22 PM EDT Prostate cancer documented in this encounter Results * Differential, Automated (09/01/2017 1:22 PM EDT) Neutrophil % 59.8 % [facility] Neutrophil Absolute 3.75 1.70 - 6.10 x10(3)/[facility] Lymph % 27.4 % [facility] Lymphocytes Abs 1.7 0.9 - 3.2 x10(3)/[facility] Monocyte % 8.3 % [facility] Monocyte Abs 0.5 0.3 - 0.9 x10(3)/[facility] Eos % 3.2 % [facility] Eosinophils Abs 0.2 0.0 - 0.4 x10(3)/[facility] Basophil % 1.0 % [facility] Baso Absolute 0.1 0.0 - 0.1 x10(3)/[facility] Immature Gran % 0.30 % [facility] Comment: Immature granulocytes(IG's)percentage and absolute count will include metamyelocytes, myelocytes, and promyelocytes. Blood smears from CBCs yielding IG's will be scanned manually for concordance. If this scan disagrees with the automated IG or if promyelocytes are noted, a manual differential will be performed. Immature Gran Absolute 0.02 0.00 - 0.04 x10(3)/[facility] Blood specimen (specimen) 09/01/2017 1:22 PM EDT 09/01/2017 1:28 PM EDT Narrative Resulting Agency Comment Spec In Lab John Wilson MD HEMATOLOGY ORDERABLE S [facility] [place] [address] * (ABNORMAL) Hemogram (09/01/2017 1:22 PM EDT) White Blood Cell 6.3 4.0 - 9.5 x10(3)/mc L [facility] Red Blood Cell 4.54(L) 4.58 - 5.54 x10(6)/[facility] Hemoglobin 15.2 13.7 - 16.5 gm/dL [facility] Hematocrit 43.2 40.5 - 48.5 % [facility] Mean Cell Volume 95.2(H) 82.9 - 93.1 [facility] Mean Cell Hemoglobin 33.5(H) 27.5 - 32.1 pg [facility] Mean Cell Hemoglobin Concentration 35.2 32.0 - 35.7 gm/dL [facility] Platelet 165 145 - 357 x10(3)/mc L [facility] RDW Standard Deviation 43.2 36.0 - 45.0 [facility] RDW coefficient of variation 12.4 11.4 - 13.8 % [facility] Mean Platelet Volume 10.6 7.6 - 12.9 [facility] NRBC% auto 0.0 % [facility] NRBC Absolute 0.000 0.000 - 0.000 x10(3)/ L [facility] Blood specimen (specimen) 09/01/2017 1:22 PM EDT 09/01/2017 1:28 PM EDT Narrative Resulting Agency Comment Spec In Lab John Wilson MD HEMATOLOGY ORDERABLE S Performing Organization Address [facility] Co de Phone Number [facility] [place] [address] * PSA (09/01/2017 1:22 PM EDT) Prostate Specific Antigen (Ultrasensitiv e) 0.08 0.00 - 4.00 ng/mL [facility] Blood specimen (specimen) 09/01/2017 1:22 PM EDT 09/01/2017 1:28 PM EDT Narrative Resulting Agency Comment Spec In Lab John Wilson MD CHEMISTRY ORDERABLES Performing Organization Address [facility] Co de Phone Number [facility] [place] [address] * Comprehensive metabolic panel (non-fasting) (09/01/2017 1:22 PM EDT) Glucose 100 65 - 199 mg/dL [facility] Comment:Diabetes: >=200 mg/d L plus symptoms Blood Urea Nitrogen 20 10 - 20 mg/dL [facility] Creatinine 0.82 0.80 - 1.50 mg/dL [facility] Sodium 141 135 - 145 mmol/L [facility] Potassium 4.6 3.5 - 5.0 mmol/L [facility] Comment: Please note: ??Patients with WBC >100,000 may have falsely elevated Potassium levels. ??For accurate Potassium quantification in these patients send serum separator tube (gold top) for subsequent determinations. ??Contact the Clinical Chemistry Laboratory if there are any questions. Chloride 101 98 - 107 mmol/L [facility] Carbon Dioxide 27 22 - 31 mmol/L [facility] Anion Gap 13 5 - 15 mmol/L [facility] Calcium 9.4 8.5 - 10.5 mg/dL [facility] Protein, Total 7.4 6.1 - 8.0 gm/dL [facility] Albumin 4.6 3.2 - 5.2 gm/dL [facility] Aspartate Aminotransferase 22 0 - 39 unit/L [facility] Alanine Aminotransferase 22 0 - 55 unit/L [facility] Alkaline Phosphatase 60 40 - 120 unit/L [facility] Bilirubin, Total 0.6 0.2 - 1.3 mg/dL [facility] Est Glomerular Filtration Rate >60 >=60 [facility] Comment: The reported eGFR should be multiplied by 1.2 for patients. The MDRD is not an appropriate measure of renal function for patients with body mass extremes or in patients with acute kidney failure. http://GLSS/DHnkdep http://GLSS/DHMCnkf Blood specimen (specimen) 09/01/2017 1:22 PM EDT 09/01/2017 1:28 PM EDT Narrative Resulting Agency Comment Spec In Lab John Wilson MD CHEMISTRY ORDERABLES [facility] [place] [address] documented in this encounter Visit Diagnoses Diagnosis Prostate cancer Malignant neoplasm of prostate documented in this encounter Care Teams Compressor Assembler Relationship Specialty Start Date End Date Michael Franco MD [address] [facility] [address] [place] [address] PCP - General 04/03/10 05/15/21 documented as of this encounter
--- OUTSIDE RECORDS SUMMARY | 2024-01-09 01:26 | XMS_ITS | Encounter Summary ---
Author Organization [facility] [place] [address] Care Team Providers Care Wire Preparation Machine Tender Name Role Phone Michael Franco MD Primary Care Provider [phone] Encounter Details Date Type Department Care Team (Latest Contact Info) Description 09/10/2012 11:45 AM EDT - 09/10/2012 11:59 PM EDT Hospital [place] [address] John Wilson MD [address] [place] [address] [place], [place] [id number] Prostate cancer Discharge Disposition: Home Social History [...] HCL/CHONDRO EVANS A (GLUCOSAMINE-CHONDROITI N ORAL) 03/13/2010 atorvastatin (LIPITOR) 20 mg tablet Take 20 mg by mouth daily. 03/30/2013 acetaminophen (TYLENOL) 500 mg tablet Take 1-2 [...] 9:30 AM EDT Office Visit Hematology/Oncology at [address] [phone] Miguelina Lucia ADVERTISING TEACHER [facility] [place] [address] 02/27/2024 2:15 PM EDT Office Visit Dermatology at [address] [place] [address] Eliel Vanessa MD [address], [place] [address] documented as of this encounter Procedures Procedure Name Priority Date/Time Associated Diagnosis Comments DIFFERENTIAL, AUTOMATED Routine 09/10/2012 12:19 PM EDT CBC (WITH DIFF) Routine 09/10/2012 12:19 PM EDT Prostate cancer PSA (ULTRASENSITIVE) Routine 09/10/2012 12:19 PM EDT Prostate cancer COMPREHENSIVE METABOLIC PANEL Routine 09/10/2012 12:19 PM EDT Prostate cancer documented in this encounter Results * Differential, Automated (09/10/2012 12:19 PM EDT) Neutrophil % 58.4 34.0 - 71.0 % CERNER MILLENNIUM Neutrophil Absolute 3.12 1.50 - 6.30 x10(3)/mcL CERNER MILLENNIUM Lymph % 24.9 19.0 - 53.0 % CERNER MILLENNIUM Lymphocytes Abs 1.3 1.0 - 3.6 x10(3)/mcL CERNER MILLENNIUM Monocyte % 10.7 4.0 - 13.0 % CERNER MILLENNIUM Monocyte Abs 0.6 0.2 - 1.0 x10(3)/mcL CERNER MILLENNIUM Eos % 4.7 0.0 - 7.0 % CERNER MILLENNIUM Eosinophils Abs 0.2 0.0 - 0.5 x10(3)/mcL CERNER MILLENNIUM Basophil % 0.9 0.0 - 2.0 % CERNER MILLENNIUM Baso Absolute 0.0 0.0 - 0.2 x10(3)/mcL CERNER MILLENNIUM Immature Gran % 0.40 0.00 - 0.66 % CERNER MILLENNIUM Comment: Immature granulocytes(IG's)percentage and absolute count will include metamyelocytes, myelocytes, and promyelocytes. Blood smears from CBCs yielding IG's will be scanned manually for concordance. If this scan disagrees with the automated IG or if promyelocytes are noted, a manual differential will be performed. Immature Gran Absolute 0.02 0.00 - 0.05 x10(3)/mcL CERNER MILLENNIUM Blood specimen (specimen) 09/10/2012 12:19 PM EDT 09/10/2012 12:19 PM EDT John Wilson MD HEMATOLOGY ORDERABLE S [facility] FATIM[facility]UM * PSA (09/10/2012 12:19 PM EDT) Prostate Specific Antigen (Ultrasensitiv e) <0.03 0.00 - 4.00 ng/mL CERNER MILLENNIUM Blood specimen (specimen) 09/10/2012 12:19 PM EDT 09/10/2012 12:19 PM EDT Narrative Resulting Agency Comment Spec In Lab John Wilson MD CHEMISTRY ORDERABLES CERNER MILLENNIUM * (ABNORMAL) Comprehensive metabolic panel (non-fasting) (09/10/2012 12:19 PM EDT) Glucose 93 60 - 199 mg/dL CERNER MILLENNIUM Comment:Diabetes: >=200 mg/d L plus symptoms Blood Urea Nitrogen 19 10 - 20 mg/dL CERNER MILLENNIUM Creatinine 0.70(L) 0.80 - 1.50 mg/dL CERNER MILLENNIUM Comment: Please note that the pediatric reference intervals supplied above were [place] [facility] Results from pediatric patients should be interpreted [...] CERNER MILLENNIUM * (ABNORMAL) CBC (with Diff) (09/10/2012 12:19 [...] MD HEMATOLOGY ORDERABLE S Performing Organization Address City/State/[facility] Co va Phone Number [facility] documented in this encounter Visit Diagnoses Diagnosis Prostate cancer Malignant neoplasm of prostate documented in this encounter Care Teams Wire Preparation Machine Tender Relationship Specialty Start Date End Date Michael Franco MD [address] [place] [address] PCP - General 04/03/10 05/15/21 documented as of this encounter
--- OUTSIDE RECORDS SUMMARY | 2024-01-09 01:26 | XMS_ITS | Encounter Summary ---
[place] [address] Care Team Providers Care Survey Data Technician Name Role Phone Michael Franco MD Primary Care Provider Reason for Visit * Reason Comments Prostate Cancer Encounter Details Date Type Department Care Team (Late st Contact Info) Description 10/21/2017 3:30 PM EDT Office Visit Hematology/Oncology at [address] [phone] John Wilson MD [address] [place] [address] Prostate cancer Social History Tobacco Use [...] Sign Reading Time Taken Comments Blood Pressure 161/80 10/21/2017 3:27 PM EDT Pulse 64 10/21/2017 3:27 PM EDT Temperature 36.9 ??C (98.4 ??F) 10/21/2017 3:27 PM ED T Respiratory Rate 18 10/21/2017 3:27 PM EDT Oxygen Saturation 98% 10/21/2017 3:27 PM EDT Inhaled Oxygen Concentration - - Weight 108.9 kg (240 lb) 10/21/2017 3:27 PM EDT Height - - Body Mass Index 31.67 03/27/2017 2:36 PM EST documented in this encounter Progress Notes * John Wilson MD - 10/21/2017 3:30 PM EDT Problem list 1. Prostate cancer [...] and has no complaints or problems. He denies any bone pain Past history and social history are reviewed. He is still enjoying his fci Review of Systems Constitutional: Negative for fever, [...] MARIBELL KAUFFMAN SR. ( ) as of 10/21/2017 15:26 Ref. Range 03/16/2014 13:00 03/01/2015 12:41 03/12/2016 10:29 03/20/2017 12:04 09/01/2017 13:22 PSA Total Latest Ref Range: 0.00 - 4.00 ng/mL <0.03 <0.03 0.03 0.12 0.08 Results for MARIBELL KAUFFMAN SR. ( ) as of 10/21/2017 15:26 Ref. Range 09/01/2017 13:22 WBC Latest Ref Range: 4.0 - 9.5 x10(3)/mcL 6.3 RBC Latest Ref Range: 4.58 - 5.54 x10(6)/mcL 4.54 (L) Hemoglobin Latest Ref Range: 13.7 - 16.5 gm/dL 15.2 Hematocrit Latest Ref Range: 40.5 - 48.5 % 43.2 MCV Latest Ref Range: 82.9 - 93.1 fL 95.2 (H) MCH Latest Ref Range: 27.5 - 32.1 pg 33.5 (H) MCHC Latest Ref Range: 32.0 - 35.7 gm/dL 35.2 RDWSD Latest Ref Range: 36.0 - 45.0 fL 43.2 RDWCV Latest Ref Range: 11.4 - 13.8 % 12.4 Platelets Latest Ref Range: 145 - 357 x10(3)/mcL 165 MPV Latest Ref Range: 7.6 - 12.9 fL 10.6 nRBC % Auto Latest Units: % 0.0 nRBC Abs Auto Latest Ref Range: 0.000 - 0.000 x10(3)/mcL 0.000 Neutr Abs (ANC) Latest Ref Range: 1.70 - 6.10 x10(3)/mcL 3.75 Neutrophils % Latest Units: % 59.8 Immature Gran % Latest Units: % 0.30 Lymphocytes % Latest Units: % 27.4 Monocytes % Latest Units: % 8.3 Eosinophils % Latest Units: % 3.2 Basophils % Latest Units: % 1.0 Carolann Gran Abs Latest Ref Range: 0.00 - 0.04 x10(3)/mcL 0.02 Lymphocytes Abs Latest Ref Range: 0.9 - 3.2 x10(3)/mcL 1.7 Monocyte Abs Latest Ref Range: 0.3 - 0.9 x10(3)/mcL 0.5 Eosinophils Abs Latest Ref Range: 0.0 - 0.4 x10(3)/mcL 0.2 Basophils Abs Latest Ref Range: 0.0 - 0.1 x10(3)/mcL 0.1 Sodium Latest Ref Range: 135 - 145 mmol/L 141 Potassium Latest Ref Range: 3.5 - 5.0 mmol/L 4.6 Chloride Latest Ref Range: 98 - 107 mmol/L 101 CO2 Latest Ref Range: 22 - 31 mmol/L 27 Anion Gap Latest Ref Range: 5 - 15 mmol/L 13 BUN Latest Ref Range: 10 - 20 mg/dL 20 Creatinine Latest Ref Range: 0.80 - 1.50 mg/dL 0.82 eGFR Latest Ref Range: >=60 >60 Glucose Lvl Latest Ref Range: 65 - 199 mg/dL 100 Calcium Latest Ref Range: 8.5 - 10.5 mg/dL 9.4 Total Protein Latest Ref Range: 6.1 - 8.0 gm/dL 7.4 Albumin Latest Ref Range: 3.2 - 5.2 gm/dL 4.6 Total Bilirubin Latest Ref Range: 0.2 - 1.3 mg/dL 0.6 Alk Phos Latest Ref Range: 40 - 120 unit/L 60 AST Latest Ref Range: 0 - 39 unit/L 22 ALT Latest Ref Range: 0 - 55 unit/L 22 PSA Total Latest Ref Range: 0.00 - 4.00 ng/mL 0.08 Assessment/plan: Maribell is doing exceptionally well. With PSA going down it certainly raises the question of whether or not he actually has recurrent disease. He is comfortable checking on it a couple times a year andwould like to have a recheck in March before the winter snow comes. We will make arrangements for that and see him back following the labs tests. He will call if there is issues or problems in theinterim. documented in this encounter Plan of Treatment Upcoming Encounters Date Type Department Care Team (Late st Contact Info) Description 01/20/2024 9:30 AM EDT Office Visit Hematology/Oncology at [address] [phone] Miguelina Lucia CHURN OPERATOR [facility] [place] [address] 02/27/2024 2:15 PM EDT Office Visit Dermatology at [place] [address] [facility] [place] [phone] Eliel Vanessa MD [address] [facility], [place] [address] documented as of this encounter Procedures Procedure Name Priority Date/Time Associated Diagnosis Comments LAB SCAN 02/23/2018 12:00 AM EDT documented in this encounter Results * SCAN DOC: LAB (02/23/2018 12:00 AM EDT) Narrative 02/23/2018 12:00 AM EDT Ordered by an unspecified provider. Scanning Provider MEDIA MGR SCAN EXT O RDR/RSLT documented in this encounter Visit Diagnoses Diagnosis Prostate cancer Malignant neoplasm of prostate documented in this encounter Care Teams Survey Data Technician Relationship Specialty Start Date End Date Michael Franco MD [address] [place] [address] PCP - General 04/03/10 05/15/21 documented as of this encounter
--- OUTSIDE RECORDS SUMMARY | 2024-01-09 01:26 | XMS_ITS | Encounter Summary ---
[place] [address] Care Team Providers Care Narcotics Agent Name Role Phone Kristian Machuca MD Primary Care Provider Encounter Details Date Type Department Care Team (Latest Contact Info) Description 01/15/2012 10:46 AM EDT - 01/15/2012 11:59 PM EDT Hospital Encounter Non-[place] [address] Aortic stenosis Social History Tobacco Use Types [...] 9:30 AM EDT Office Visit Hematology/Oncology at [address] [phone] [facility] [place] [address] 02/27/2024 2:15 PM EDT Office Visit Dermatology at [place] [address] [facility] [place] [address] Eliel Vanessa MD [address] [facility], [place]HAEL [place] [address] documented as of this encounter Procedures Procedure Name Priority Date/Time Associated Diagnosis Comments ECHOCARDIOGRAM TRANSTHORACIC Routine 01/15/2012 11:36 AM EDT Aortic stenosis documented in this encounter Results * Echo Transthoracic (Complete) (01/15/2012 11:36 AM EDT) EF 60 [employer] SYSTEM Anatomical Region Laterality Modality Other 01/15/2012 Narrative 01/15/2012 12:03 PM EDT Procedure: ? Transthoracic Echocardiogram Patient: ? DALY Giang ?(Age): 1940(71) Med Rec#: ?[id number] ? Sex: ?M ? Site Loc: ?[facility] ? Ht / Wt: ??185.4(cm)/109(k Pt. Loc: ? Echo Lab ? BSA: ?2.37 Study Date: ?01/15/2012 ? Pt. Type: Outpatient Tape: ? Referring: Kehinde Munoz Referring: KRISTIAN MACHUCA G Staff Reporter: Hany Deleon MS, [facility] Diagnosis: ??Aortic valve disorders (424.1) CPT Code(s): ??Echo LTD (29216), ??Color Doppler (57826), ??Doppler LTD (45474), Indication(s): ??Aortic prosthesis, F/U Rhythm: HR ?BP ?129/69 ?? SUMMARY: 1. Left ventricular chamber size, wall thickness, global and segmental systolic function are within normal limits. Ejection fraction is estimated to be 60%. 2. Right ventricular chamber size, wall thickness, and systolic function are within normal limits. 3. The bio-prosthetic aortic valve appears well seated with normal function. The mean trans-valvular gradient across ??the aortic valve is 8 mmHg. 4. There is mild dilatation of the ascending aorta. The ascending aorta dimension is 3.7 cm. 5. See remainder of report for additional findings. FINDINGS: Left Ventricle ?Left ventricular chamber size, wall thickness, global and segmental systolic function are within normal limits. Ejection fraction is estimated to be 60%. ?The left ventricular chamber size is normal. Left Atrium ?The left atrium is mildly dilated. Right Ventricle ?Right ventricular chamber size, wall thickness, and systolic function are within normal limits. ?No pulmonary hypertension is noted. ?The estimated pulmonary artery systolic pressure is 28 mmHg. ?The estimated right atrial pressure is 3 mmHg. Right Atrium ?The right atrium is mildly dilated. Aortic Valve ?The mean trans-valvular gradient across ??the aortic valve is 8 mmHg. ?The size of the prosthetic aortic valve is 27mm. ?The prosthetic aortic valve was implanted on 12/05/2011. ?A pericardial bio-prosthetic aortic valve is present. ?The prosthetic aortic valve leaflets are normal. ?The bio-prosthetic aortic valve appears well seated with normal function. ?There is no prosthetic aortic valve regurgitation present. Mitral Valve ?There is thickening of the anterior mitral valve leaflet. ?There is no evidence of mitral stenosis. ?There is mild (1+/4+) mitral regurgitation present. Tricuspid Valve ?The tricuspid valve appears normal in structure and function. ?There is trace tricuspid regurgitation present. Pulmonic Valve ?There is mild (1+/4+) pulmonic regurgitation present. Pericardium ?There is no pericardial effusion. Aorta ?The aortic root is normal in size. ?There is mild dilatation of the ascending aorta. ?The ascending aorta dimension is 3.7 cm. Misc ?Two-dimensional echo, limited spectral Doppler and color Doppler performed. Wall Motion: Segment Name ?Rest ? Base-Anteroseptal ?? Normal ? Base-Anterior ? Normal ? Base-Anterolateral ??Normal ? Base-Posterolateral Normal ? Base-Inferior ? Normal ? Base-Inferoseptal ?? Normal ? Mid-Anteroseptal ?Normal ? Mid-Anterior ?Normal ? Mid-Anterolateral ?? Normal ? Mid-Posterolateral ??Normal ? Mid-Inferior ?Normal ? Mid-Inferoseptal ?Normal ? Booker-Septal ? Normal ? Booker-Anterior ? Normal ? Booker-Lateral ?Normal ? Booker-Inferior ? Normal ? Booker-Tip ?Normal ? Chambers ?Value ?Units (Range) ? LV EF Est ? 60 ? % (55 to 80) ? IVSd MM ? 1 ?cm (0.3 to 1.1) ? LVIDd MM ?5.3 ?cm (3.7 to 5.6) ? PWd MM ?0.9 ?cm (0.6 to 1.1) ? LVIDs MM ?3.8 ?cm (2.3 to 3.9) ? LVFS MM ? 28 ? % (28 to 42) ? LV mass ? 187 ?gm ? LA area ? 20 ? cm2 (<21) ? RA area ? 18.6 ? cm2 (<18) ? Ao root ? 3.4 ?cm (2.1 to 3.6) ? Asc Ao ?3.7 ?cm (2 to 3.5) ? Aortic Valve ?Value ?Units (Range) ? AV grad P ? 14 ? mmHg ? AV grad M ? 8 ?mmHg ? DOI ? 0.495 ? AV pk delma ? 1.9 ?m/sec (1 to 1.7) ? LVOT pk delma ? 0.93 ? m/sec (0.7 to 1.1) ?? Mitral Valve ?Value ?Units (Range) ? E peak ?0.72 ? m/sec ? E/A ratio ? 1 ?ratio ? MVDT ?257 ?msec ? E1 ?0.15 ? m/sec ? E/E1 ?4.8 ?ratio ? Tricuspid/Pulmonic Valves ?Value ?Units (Range) ? TR peak delma ? 2.5 ?m/sec ? RAP ? 3 ?mmHg ? RVSP/PASP ? 28 ? mmHg ? This report has been electronically signed by: Kulwinder Cherry MD ? 01/15/2012 12:02:52 Images reviewed and interpretation verified [facility] Cardiac Ultrasound Laboratory Procedure Note Kulwinder Cherry MD - 01/15/2012 Procedure: Transthoracic Echocardiogram Patient: DALY NO(Age): 1940(71) Med Rec#: [id number] Sex: M Site Loc: [facility] Ht / Wt: 185.4(cm)/109(k Pt. Loc: Echo Lab BSA: 2.37 Study Date: 01/15/2012 Pt. Type: Outpatient Tape: Referring: Kehinde Munoz Referring: KRISTIAN MACHUCA G Staff Reporter: Hany Deleon MS, [facility] Diagnosis: Aortic valve disorders (424.1) CPT Code(s): Echo LTD (74652), Color Doppler (01872), Doppler LTD (30664), Indication(s): Aortic prosthesis, F/U Rhythm: HR BP 129/69 SUMMARY: 1. Left ventricular chamber size, wall thickness, global and segmental systolic function are within normal limits. Ejection fraction is estimated to be 60%. 2. Right ventricular chamber size, wall thickness, and systolic function are within normal limits. 3. The bio-prosthetic aortic valve appears well seated with normal function. The mean trans-valvular gradient across the aortic valve is 8 mmHg. 4. There is mild dilatation of the ascending aorta. The ascending aorta dimension is 3.7 cm. 5. See remainder of report for additional findings. FINDINGS: Left Ventricle Left ventricular chamber size, wall thickness, global and segmental systolic function are within normal limits. Ejection fraction is estimated to be 60%. The left ventricular chamber size is normal. Left Atrium The left atrium is mildly dilated. Right Ventricle Right ventricular chamber size, wall thickness, and systolic function are within normal limits. No pulmonary hypertension is noted. The estimated pulmonary artery systolic pressure is 28 mmHg. The estimated right atrial pressure is 3 mmHg. Right Atrium The right atrium is mildly dilated. Aortic Valve The mean trans-valvular gradient across the aortic valve is 8 mmHg. The size of the prosthetic aortic valve is 27mm. The prosthetic aortic valve was implanted on 12/05/2011. A pericardial bio-prosthetic aortic valve is present. The prosthetic aortic valve leaflets are normal. The bio-prosthetic aortic valve appears well seated with normal function. There is no prosthetic aortic valve regurgitation present. Mitral Valve There is thickening of the anterior mitral valve leaflet. There is no evidence of mitral stenosis. There is mild (1+/4+) mitral regurgitation present. Tricuspid Valve The tricuspid valve appears normal in structure and function. There is trace tricuspid regurgitation present. Pulmonic Valve There is mild (1+/4+) pulmonic regurgitation present. Pericardium There is no pericardial effusion. Aorta The aortic root is normal in size. There is mild dilatation of the ascending aorta. The ascending aorta dimension is 3.7 cm. Misc Two-dimensional echo, limited spectral Doppler and color Doppler performed. Wall Motion: Segment Name Rest Base-Anteroseptal Normal Base-Anterior Normal Base-Anterolateral Normal Base-Posterolateral Normal Base-Inferior Normal Base-Inferoseptal Normal Mid-Anteroseptal Normal Mid-Anterior Normal Mid-Anterolateral Normal Mid-Posterolateral Normal Mid-Inferior Normal Mid-Inferoseptal Normal Booker-Septal Normal Booker-Anterior Normal Booker-Lateral Normal Booker-Inferior Normal Booker-Tip Normal Chambers Value Units (Range) LV EF Est 60 % (55 to 80) IVSd MM 1 cm (0.3 to 1.1) LVIDd MM 5.3 cm (3.7 to 5.6) PWd MM 0.9 cm (0.6 to 1.1) LVIDs MM 3.8 cm (2.3 to 3.9) LVFS MM 28 % (28 to 42) LV mass 187 gm LA area 20 cm2 (<21) RA area 18.6 cm2 (<18) Ao root 3.4 cm (2.1 to 3.6) Asc Ao 3.7 cm (2 to 3.5) Aortic Valve Value Units (Range) AV grad P 14 mmHg AV grad M 8 mmHg DOI 0.495 AV pk delma 1.9 m/sec (1 to 1.7) LVOT pk delma 0.93 m/sec (0.7 to 1.1) Mitral Valve Value Units (Range) E peak 0.72 m/sec E/A ratio 1 ratio MVDT 257 msec E1 0.15 m/sec E/E1 4.8 ratio Tricuspid/Pulmonic Valves Value Units (Range) TR peak delma 2.5 m/sec RAP 3 mmHg RVSP/PASP 28 mmHg This report has been electronically signed by: Kulwinder Cherry MD 01/15/2012 12:02:52 Images reviewed and interpretation verified [facility] Cardiac Ultrasound Laboratory Kehinde Munoz MD ECHO ORDERABLES documented in this encounter Visit Diagnoses Diagnosis Aortic stenosis Aortic valve disorders documented in this encounter Care Teams Narcotics Agent Relationship Specialty Start Date End Date Kristian Machuca MD [address] [place] [address] PCP - General 04/03/10 05/15/21 documented as of this encounter
--- OUTSIDE RECORDS SUMMARY | 2024-01-09 01:26 | XMS_ITS | Encounter Summary ---
[place] [address] Care Team Providers Care Site Medical Director Name Role Phone Michael Franco MD Primary Care Provider [phone] Encounter Details Date Type Department Care Team (Latest Contact Info) Description 03/16/2013 12:49 PM EST - 03/16/2013 11:59 PM [facility] [place] [address] John Wilson MD [address] [place] [address] [address] [place], [place] [address] Prostate cancer Discharge Disposition: Home Social History [...] Take 40 mg by mouth nightly. 03/27/2017 LACTOBACILLUS COMBO NO.6 (PROBIOTIC COMPLEX ORAL) Take by mouth. 03/30/2013 atorvastatin (LIPITOR) 20 mg tablet Take 20 [...] 9:30 AM EDT Office Visit Hematology/Oncology at [address] [phone] Miguelina Lucia APRN [facility] [place] [address] 02/27/2024 2:15 PM EDT Office Visit Dermatology at [place] [address] [place] [phone] Eliel Vanessa MD [address] [facility] [facility], [place] [address] documented as of this encounter Procedures Procedure Name Priority Date/Time Associated Diagnosis Comments DIFFERENTIAL, AUTOMATED Routine 03/16/2013 12:59 PM EST CBC (WITH DIFF) Routine 03/16/2013 12:59 PM EST Prostate cancer PSA (ULTRASENSITIVE) Routine 03/16/2013 12:59 PM EST Prostate cancer COMPREHENSIVE METABOLIC PANEL Routine 03/16/2013 12:59 PM EST Prostate cancer documented in this encounter Results * Differential, Automated (03/16/2013 12:59 PM EST) Neutrophil % 60.2 34.0 - 71.0 % CERNER MILLENNIUM Neutrophil Absolute 3.69 1.50 - 6.30 x10(3)/mcL CERNER MILLENNIUM Lymph % 26.1 19.0 - 53.0 % CERNER MILLENNIUM Lymphocytes Abs 1.6 1.0 - 3.6 x10(3)/mcL CERNER MILLENNIUM Monocyte % 8.0 4.0 - 13.0 % CERNER MILLENNIUM Monocyte Abs 0.5 0.2 - 1.0 x10(3)/mcL CERNER MILLENNIUM Eos % 4.4 0.0 - 7.0 % CERNER MILLENNIUM Eosinophils Abs 0.3 0.0 - 0.5 x10(3)/mcL CERNER MILLENNIUM Basophil % 1.1 0.0 - 2.0 % CERNER MILLENNIUM Baso Absolute 0.1 0.0 [...] 0.05 x10(3)/mcL CERNER MILLENNIUM Blood specimen (specimen) 03/16/2013 12:59 PM EST 03/16/2013 1:06 PM EST John Wilson MD HEMATOLOGY ORDERABLE S [facility] * PSA (03/16/2013 12:59 PM EST) Prostate Specific Antigen (Ultrasensitiv e) <0.03 0.00 - 4.00 ng/mL CERNER MILLENNIUM Blood specimen (specimen) 03/16/2013 12:59 PM EST 03/16/2013 1:06 PM EST Narrative Resulting Agency Comment Spec In Lab John Wilson MD CHEMISTRY ORDERABLES CERNER MILLENNIUM * Comprehensive metabolic panel (non-fasting) (03/16/2013 12:59 PM EST) Glucose 101 60 - 199 mg/dL CERNER MILLENNIUM Comment:Diabetes: >=200 mg/d L plus symptoms Blood Urea Nitrogen 16 10 - 20 mg/dL CERNER MILLENNIUM Creatinine 0.87 0.80 - 1.50 mg/dL CERNER MILLENNIUM Comment: Please note that the pediatric reference intervals supplied above [place] [facility] Results from pediatric patients should be interpreted [...] In Lab John Wilson MD CHEMISTRY ORDERABLES [facility] * (ABNORMAL) CBC (with Diff) (03/16/2013 12:59 [...] MD HEMATOLOGY ORDERABLE S Performing Organization Address City/State/[facility] Co de Phone Number [facility] documented in this encounter Visit Diagnoses Diagnosis Prostate cancer Malignant neoplasm of prostate documented in this encounter Care Teams Site Medical Director Relationship Specialty Start Date End Date Michael Franco MD [address] [place] [address] PCP - General 04/03/10 05/15/21 documented as of this encounter
--- OUTSIDE RECORDS SUMMARY | 2024-01-09 01:26 | XMS_ITS | Encounter Summary ---
[place] [address] Care Team Providers Care Financial Dealers Name Role Phone Michael Franco MD Primary Care Provider [phone] Reason for Visit * Reason Comments Prostate Cancer Encounter Details Date Type Department Care Team (Late st Contact Info) Description 03/18/2016 2:30 PM EST Office Visit Hematology/Oncology at [address] [phone] John Wilson MD [address] [place] [address] Prostate cancer Social History Tobacco Use [...] Sign Reading Time Taken Comments Blood Pressure 121/77 03/18/2016 2:34 PM EST Pulse 68 03/18/2016 2:34 PM EST Temperature 36.4 ??C (97.5 ??F) 03/18/2016 2:34 PM ES T Respiratory Rate 20 03/18/2016 2:34 PM EST Oxygen Saturation 97% 03/18/2016 2:34 PM EST Inhaled Oxygen Concentration - - Weight 117 kg (258 lb) 03/18/2016 2:34 PM EST Height 185.4 cm (6' 0.99) 03/18/2016 2:34 PM ES T copied Body Mass Index 34.05 03/18/2016 2:34 PM EST documented in this encounter Progress Notes * John Wilson MD - 03/18/2016 2:30 PM EST Problem list 1. Prostate [...] is continuing to do well and enjoy snf without any difficulties or medical problems. His bowels are fine and he is not having any other urinary difficulties. Review of systems otherwise negative. He has no significant bone pain and is physically active. Past history and social history are reviewed. He is enjoying his snf Review of Systems Constitutional: Negative for fever, [...] MARIBELL KAUFFMAN SR. ( ) as of 03/18/2016 15:11 Ref. Range 03/16/2013 12:59 10/20/2013 14:27 03/16/2014 13:00 03/01/2015 12:41 03/12/2016 10:29 PSA Total Latest Ref Range: 0.00 - 4.00 ng/mL <0.03 <0.03 <0.03 <0.03 0.03 PSA Free Latest Units: ng/mL <0.1 PSA % Free Latest Units: % Not Calculated Results for MARIBELL KAUFFMAN SR. ( ) as of 03/18/2016 15:11 Ref. Range 03/12/2016 10:29 WBC Latest Ref Range: 4.0 - 9.5 x10(3)/mcL 6.3 RBC Latest Ref Range: 4.58 - 5.54 x10(6)/mcL 4.50 (L) Hemoglobin Latest Ref Range: 13.7 - 16.5 gm/dL 15.1 Hematocrit Latest Ref Range: 40.5 - 48.5 % 43.1 MCV Latest Ref Range: 82.9 - 93.1 fL 95.8 (H) MCH Latest Ref Range: 27.5 - 32.1 pg 33.6 (H) MCHC Latest Ref Range: 32.0 - 35.7 gm/dL 35.0 RDWSD Latest Ref Range: 36.0 - 45.0 fL 45.4 (H) RDWCV Latest Ref Range: 11.4 - 13.8 % 12.8 Platelets Latest Ref Range: 145 - 357 x10(3)/mcL 181 MPV Latest Ref Range: 7.6 - 12.9 fL 10.3 nRBC % Auto Latest Units: % 0.0 nRBC Abs Auto Latest Ref Range: 0.000 - 0.000 x10(3)/mcL 0.000 Neutr Abs (ANC) Latest Ref Range: 1.70 - 6.10 x10(3)/mcL 3.85 Neutrophils % Latest Units: % 61.5 Immature Gran % Latest Units: % 0.30 Lymphocytes % Latest Units: % 21.7 Monocytes % Latest Units: % 10.7 Eosinophils % Latest Units: % 4.8 Basophils % Latest Units: % 1.0 Carolann Gran Abs Latest Ref Range: 0.00 - 0.04 x10(3)/mcL 0.02 Lymphocytes Abs Latest Ref Range: 0.9 - 3.2 x10(3)/mcL 1.4 Monocyte Abs Latest Ref Range: 0.3 - 0.9 x10(3)/mcL 0.7 Eosinophils Abs Latest Ref Range: 0.0 - 0.4 x10(3)/mcL 0.3 Basophils Abs Latest Ref Range: 0.0 - 0.1 x10(3)/mcL 0.1 Sodium Latest Ref Range: 135 - 145 mmol/L 140 Potassium Latest Ref Range: 3.5 - 5.0 mmol/L 4.7 Chloride Latest Ref Range: 98 - 107 mmol/L 101 CO2 Latest Ref Range: 22 - 31 mmol/L 26 Anion Gap Latest Ref Range: 5 - 15 mmol/L 13 BUN Latest Ref Range: 10 - 20 mg/dL 21 (H) Creatinine Latest Ref Range: 0.80 - 1.50 mg/dL 0.88 Estimated GFR Latest Ref Range: >=60 >60 Glucose Lvl Latest Ref Range: 65 - 199 mg/dL 107 Calcium Latest Ref Range: 8.5 - 10.5 mg/dL 9.5 Total Protein Latest Ref Range: 6.1 - 8.0 gm/dL 7.2 Albumin Latest Ref Range: 3.2 - 5.2 gm/dL 4.5 Total Bilirubin Latest Ref Range: 0.2 - 1.3 mg/dL 0.5 Bili, Direct Latest Ref Range: 0.0 - 0.3 mg/dL 0.1 Alk Phos Latest Ref Range: 40 - 120 unit/L 64 AST Latest Ref Range: 0 - 39 unit/L 26 ALT Latest Ref Range: 0 - 55 unit/L 31 PSA Total Latest Ref Range: 0.00 - 4.00 ng/mL 0.03 PSA Free Latest Units: ng/mL <0.1 PSA % Free Latest Units: % Not Calculated Assessment/Plan: Maribell is doing well and has no evidence of recurrent prostate cancer. Enough time has gone by I think yearly followup is all we need at this point so we will continue to se him on a yearly basis. He likes getting his lab at [facility] so we will go ahead and do that there as well. He knows we are available if any issues or problems develop in the interim. documented in this encounter Plan of Treatment Upcoming Encounters Date Type Department Care Team (Late st Contact Info) Description 01/20/2024 9:30 AM EDT Office Visit Hematology/Oncology at [address] [phone] Miguelina Lucia APRN [facility] [place] [address] 02/27/2024 2:15 PM EDT Office Visit Dermatology at [address] [place] [phone] Eliel Vanessa MD [address] [place] [address] RD, [place] [address] documented as of this encounter Visit Diagnoses Diagnosis Prostate cancer Malignant neoplasm of prostate documented in this encounter Care Teams Financial Dealers Relationship Specialty Start Date End Date Michael Franco MD [address] [facility] 1 [place] [address] PCP - General 04/03/10 05/15/21 documented as of this encounter
--- OUTSIDE RECORDS SUMMARY | 2024-01-09 01:26 | XMS_ITS | Encounter Summary ---
Author Organization [facility]ly [facility] [place] [address] Care Team Providers Care Director Of Conservation Name Role Phone Michael rFanco MD Primary Care Provider [phone] Encounter Details Date Type Department Care Team (Late st Contact Info) Description 03/06/2012 Orders Only Hematology Oncology at [address] [phone] Vicky Sanchez RN Prostate cancer (Primary Dx) Social History Tobacco Use Types [...] 9:30 AM EDT Office Visit Hematology/Oncology at [address] [phone] Miguelina Lucia APRN [facility] [place] [address] 02/27/2024 2:15 PM EDT Office Visit Dermatology at [address] [place] [phone] Eliel Vanessa MD [address] [facility] [place] [address] documented as of this encounter Results * Testosterone, total (03/09/2012 9:17 AM EDT) [facility] Testosterone 3.25 2.80 - 8.00 ng/mL [facility] Comment: Please note: Updated Reference Ranges 08/29/2010. [...] adult reference ranges derived from review of Ramon E170 Testosterone reagent package insert 03/16, V8 Stated pediatric reference ranges derived from review of Ramon E170 Testosterone II reagent package insert 11/18, V2. Blood specimen (specimen) 03/09/2012 9:17 AM EDT 03/09/2012 9:31 AM EDT Narrative Resulting Agency Comment Spec In Lab John Wilson MD CHEMISTRY ORDERABLES Performing Organization Address [facility] de Phone Number [facility] * PSA (03/09/2012 9:17 AM EDT) Prostate Specific Antigen (Ultrasensitiv e) <0.03 0.00 - 4.00 ng/mL [facility] Blood specimen (specimen) 03/09/2012 9:17 AM EDT 03/09/2012 9:31 AM EDT Narrative Resulting Agency Comment Spec In Lab John Wilson MD CHEMISTRY ORDERABLES Performing Organization Address [facility] de Phone Number [facility] * (ABNORMAL) Comprehensive metabolic panel (non-fasting) (03/09/2012 9:17 AM EDT) Glucose 99 60 - 199 mg/dL [facility] Comment:Diabetes: >=200 mg/d L plus symptoms Blood Urea Nitrogen 17 10 - 20 mg/dL [facility] Creatinine 0.79(L) 0.80 - 1.50 mg/dL [facility] Comment: Please note that the pediatric reference intervals supplied above were not validated at [facility]. Results from pediatric patients should be interpreted [...] diabetic kidney disease. References: http://nkdep.nih.gov/resources/NKDEP_Suggestn4Labs_0606_508.pdf http://www.kidney.org/professionals/kls/pdf/faq_gfr.pdf Aileen K, Lamont NA, Dominic AK, Kuldip TS, Lenin AD, Cristy SHAWNA. Relative performance of the MDRD and CKD-EPI equations for estimating glomerular filtration rate among patients with varied clinical presentations. Clin J Am Soc Nephrol;6:1963-72. Blood specimen (specimen) 03/09/2012 9:17 AM EDT 03/09/2012 9:31 AM EDT Narrative Resulting Agency Comment Spec In Lab John Wilson MD CHEMISTRY ORDERABLES [facility] [employer] GroupENNIUM * (ABNORMAL) CBC (with Diff) (03/09/2012 9:17 [...] of variation 14.2 10.9 - 14.4 % EF[facility] SANC[facility] Mean Platelet Volume 10.2 9.0 - 12.0 fL [facility] Blood specimen (specimen) 03/09/2012 9:17 AM EDT 03/09/2012 9:31 AM EDT Narrative Resulting Agency Comment Spec In Lab John Wilson MD HEMATOLOGY ORDERABLE S [facility] SANCHEZ documented in this encounter Visit Diagnoses Diagnosis Prostate cancer- Primary Malignant neoplasm of prostate documented in this encounter Care Teams Director Of Conservation Relationship Specialty Start Date End Date Michael Franco MD [address] [place] [address] [place] [address] PCP - General 04/03/10 05/15/21 documented as of this encounter
--- OUTSIDE RECORDS SUMMARY | 2024-01-09 01:26 | XMS_ITS | Encounter Summary ---
Author Organization [place] [address] Care Team Providers Care Cst Name Role Phone Michael Franco MD Primary Care Provider [phone] Encounter Details Date Type Department Care Team (Late st Contact Info) Description 01/15/2012 12:00 PM EDT Office Visit Cardiothoracic Surgery [place] [phone] Erinn Munoz MD [facility] C[place] [address] Aortic stenosis; S/P AVR Discharge Disposition: Home Social History Tobacco Use [...] Sign Reading Time Taken Comments Blood Pressure 130/68 01/15/2012 12:03 PM EDT Pulse 62 01/15/2012 12:03 PM EDT Temperature - - Respiratory Rate - - Oxygen Saturation 95% 01/15/2012 12:03 PM EDT Inhaled Oxygen Concentration - - Weight 109.3 kg (241 lb) 01/15/2012 12:03 PM EDT Height 185.4 cm (6' 1) 01/15/2012 12:03 PM EDT Body Mass Index 31.8 01/15/2012 12:03 PM EDT documented in this encounter Progress Notes * Erinn Munoz MD - 01/15/2012 1:02 PM EDT I am seeing Mr. Kauffman in followup after AVR. He is doing very well. He has no complaints really at all. Breathing easily. No chest pain. He feels great. He has already returned to work. ECHO shows EF normal, mean gradient of 8 mmHg across the valve. CXR shows clear lung salas with no effusion EKG shows NSR without acute changes Outpatient prescriptions marked as taking for the 01/15/12 encounter (Office Visit) with ERINN MUNOZ Medication Sig Dispense Refill ??? acetaminophen (TYLENOL) 500 mg tablet Take 1-2 tablets by mouth every 6 hours as needed for Pain. ??? ibuprofen (ADVIL;MOTRIN) 200 mg tablet Take 3 tablets by mouth every 8 hours as needed for Pain. ??? metoprolol tartrate (LOPRESSOR) 25 mg tablet Take 1 tablet by mouth 2 times daily. 60 tablet 1 ??? senna-docusate (PERICOLACE) 8.6-50 mg per tablet Take 2 tablets by mouth daily. ??? DISCONTD: AMIOdarone (PACERONE) 400 mg tablet Take 1 tablet by mouth daily. 30 tablet 0 ??? aspirin 81 mg EC tablet Take 81 mg by mouth daily. ??? MULTI-VITAMIN ORAL Take by mouth daily. ??? ERGOCALCIFEROL, VITAMIN D2, (VITAMIN D ORAL) ??? Flaxseed Oil 1,000 mg Cap ??? GLUCOSAMINE HCL/CHONDRO EVANS A (GLUCOSAMINE-CHONDROITIN ORAL) Physical Exam: BP 130/68 Pulse 62 Ht 185.4 cm (6' 1) Wt 109.317 kg (241 lb) BMI 31.80 kg/m2 SpO2 95%\ Sternal incision is well healed and sternum is stable CV: RRR without murmur LUNG: CTA No peripheral edema A/P: doing very well. May resume unrestricted activity. He will continue followup with Dr. Lisa and his primary care physician, Dr. Franco. He does not need to see me unless a specific issue arises. documented in this encounter Plan of Treatment Upcoming Encounters Date Type Department Care Team (Late st Contact Info) Description 01/20/2024 9:30 AM EDT Office Visit Hematology/Oncology at [address] [phone] Miguelina Lucia APRN [facility] [place] [address] 02/27/2024 2:15 PM EDT Office Visit Dermatology at [place] [address] [facility] [place] [address] Eliel Vanessa MD [address], [place] [address] documented as of this encounter Procedures Procedure Name Priority Date/Time Associated Diagnosis Comments EKG 12-LEAD Routine 01/15/2012 11:59 AM EDT Aortic stenosis documented in this encounter Results * EKG 12 Lead (01/15/2012 11:59 AM EDT) Ventricular rate 60 BPM MUSE SYSTEM Atrial Rate 60 BPM MUSE SYSTEM P-R Interval 214 ms MUSE SYSTEM QRS Duration 98 ms MUSE SYSTEM Q-T Interval 464 ms MUSE SYSTEM QTC Calculated (Bezet) 464 ms MUSE SYSTEM Calculated P [place] 22 degrees MUSE SYSTEM Calculated R [place] -8 degrees MUSE SYSTEM Calculated T [place] 20 degrees MUSE SYSTEM INTERPRETATION Sinus rhythm with 1st degree A-V block RSR' or QR pattern in V1 suggests right ventricular conduction delay When compared with ECG of 05-DEC-2011 13:45, No significant change was found Confirmed by MD Abbie, Lupillo ([id number]) on 01/15/2012 6:09:07 PM MUSE SYSTEM 01/15/2012 11:5 9 AM EDT 01/15/2012 6:09 PM EDT Erinn Munoz MD ECG ORDERABLES [employer] SYSTEM documented in this encounter Visit Diagnoses Diagnosis Aortic stenosis Aortic valve disorders S/P AVR Heart valve replaced by other means documented in this encounter Care Teams Cst Relationship Specialty Start Date End Date Michael Franco MD [address] [place] [address] PCP - General 04/03/10 05/15/21 documented as of this encounter
--- OUTSIDE RECORDS SUMMARY | 2024-01-09 01:26 | XMS_ITS | Encounter Summary ---
[place] [address] Care Team Providers Care Heel Cementer Machine Name Role Phone Michael Franco MD Primary Care Provider [phone] Encounter Details Date Type Department Care Team (Latest Contact Info) Description 03/20/2017 11:55 AM EST Laboratory Appointment Lab [address] [place] [address] Prostate cancer Social History Tobacco [...] AM EDT Office Visit Hematology/Oncology at [address] [phone] Miguelina Lucia APRN [facility] [place] [address] 02/27/2024 2:15 PM EDT Office Visit Dermatology at [address] [place] [address] Eliel Vanessa MD [address], MICHAEL [place] [address] documented as of this encounter Procedures Procedure Name Priority Date/Time Associated Diagnosis Comments HEMOGRAM Routine 03/20/2017 12:04 PM EST Prostate cancer DIFFERENTIAL, AUTOMATED Routine 03/20/2017 12:04 PM EST Prostate cancer CBC (WITH DIFF) Routine 03/20/2017 12:04 PM EST Prostate cancer PSA (ULTRASENSITIVE) Routine 03/20/2017 12:04 PM EST Prostate cancer COMPREHENSIVE METABOLIC PANEL Routine 03/20/2017 12:04 PM EST Prostate cancer documented in this encounter Results * Differential, Automated (03/20/2017 12:04 PM EST) Neutrophil % 58.6 % [facility] Neutrophil Absolute 3.47 1.70 - 6.10 x10(3)/[facility] Lymph % 26.1 % [facility] Lymphocytes Abs 1.6 0.9 - 3.2 x10(3)/[facility] Monocyte % 9.1 % [facility] Monocyte Abs 0.5 0.3 - 0.9 x10(3)/[facility] Eos % 5.1 % [facility] Eosinophils Abs 0.3 0.0 - 0.4 x10(3)/[facility] Basophil % 0.8 % [facility] Baso Absolute 0.0 0.0 - 0.1 x10(3)/[facility] Immature Gran % 0.30 % [facility] Comment: Immature granulocytes(IG's)percentage and absolute count will include metamyelocytes, myelocytes, and promyelocytes. Blood smears from CBCs yielding IG's will be scanned manually for concordance. If this scan disagrees with the automated IG or if promyelocytes are noted, a manual differential will be performed. Immature Gran Absolute 0.02 0.00 - 0.04 x10(3)/mcL [facility] Blood specimen (specimen) 03/20/2017 12:04 PM EST 03/20/2017 12:09 PM EST Narrative Resulting Agency Comment Spec In Lab John Wlison MD HEMATOLOGY ORDERABLE S [facility] [place] [address] * (ABNORMAL) Hemogram (03/20/2017 12:04 PM EST) White Blood Cell 5.9 4.0 - 9.5 x10(3)/[facility] Red Blood Cell 4.60 4.58 - 5.54 x10(6)/[facility] Hemoglobin 15.7 13.7 - 16.5 gm/dL [facility] Hematocrit 43.6 40.5 - 48.5 % [facility] Mean Cell Volume 94.8(H) 82.9 - 93.1 fL [facility] Mean Cell Hemoglobin 34.1(H) 27.5 - 32.1 pg [facility] Mean Cell Hemoglobin Concentration 36.0(H) 32.0 - 35.7 gm/dL [facility] Platelet 161 145 - 357 x10(3)/[facility] RDW Standard Deviation 44.5 36.0 - 45.0 [facility] RDW coefficient of variation 12.8 11.4 - 13.8 % [facility] Mean Platelet Volume 10.1 7.6 - 12.9 [facility] NRBC% auto 0.0 % [facility] NRBC Absolute 0.000 0.000 - 0.000 x10(3)/[facility] Blood specimen (specimen) 03/20/2017 12:04 PM EST 03/20/2017 12:09 PM EST Narrative Resulting Agency Comment Spec In Lab John Wilson MD HEMATOLOGY ORDERABLE S [facility] [place] [address] * Comprehensive metabolic panel (non-fasting) (03/20/2017 12:04 PM EST) Glucose 102 65 - 199 mg/dL [facility] Comment:Diabetes: >=200 mg/d L plus symptoms Blood Urea Nitrogen 19 10 - 20 mg/dL [facility] Creatinine 0.87 0.80 - 1.50 mg/dL [facility] Sodium 141 135 - 145 mmol/L [facility] Potassium 4.5 3.5 - 5.0 mmol/L [facility] Comment: Please note: ??Patients with WBC >100,000 may have falsely elevated Potassium levels. ??For accurate Potassium quantification in these patients send serum separator tube (gold top) for subsequent determinations. ??Contact the Clinical Chemistry Laboratory if there are any questions. Chloride 101 98 - 107 mmol/L [facility] Carbon Dioxide 28 22 - 31 mmol/L [facility] Anion Gap 12 5 - 15 mmol/L [facility] Calcium 9.1 8.5 - 10.5 mg/dL [facility] Protein, Total 7.3 6.1 - 8.0 gm/dL [facility] Albumin 4.5 3.2 - 5.2 gm/dL [facility] Aspartate Aminotransferase 20 0 - 39 unit/L [facility] Alanine Aminotransferase 20 0 - 55 unit/L [facility] Alkaline Phosphatase 61 40 - 120 unit/L [facility] Bilirubin, Total 0.6 0.2 - 1.3 mg/dL [facility] Est Glomerular Filtration Rate >60 >=60 [facility] Comment: The reported eGFR should be multiplied by 1.2 for patients. The MDRD is not an appropriate measure of renal function for patients with body mass extremes or in patients with acute kidney failure. http://[employer]/DHnkdep http://[employer]/DHMCnkf Blood specimen (specimen) 03/20/2017 12:04 PM EST 03/20/2017 12:09 PM EST Narrative Resulting Agency Comment Spec In Lab John Wilson MD CHEMISTRY ORDERABLES Performing Organization Address City/[facility]/ZIP Co de Phone Number [facility] [place] [address] * PSA (03/20/2017 12:04 PM EST) Prostate Specific Antigen (Ultrasensitiv e) 0.12 0.00 - 4.00 ng/mL [facility] Blood specimen (specimen) 03/20/2017 12:04 PM EST 03/20/2017 12:09 PM EST Narrative Resulting Agency Comment Spec In Lab John Wilson MD CHEMISTRY ORDERABLES Performing Organization Address City/[facility] [place] [address] documented in this encounter Visit Diagnoses Diagnosis Prostate cancer Malignant neoplasm of prostate documented in this encounter Care Teams Heel Cementer Machine Relationship Specialty Start Date End Date Michael Franco MD [address] [address] PCP - General 04/03/10 05/15/21 documented as of this encounter
--- OUTSIDE RECORDS SUMMARY | 2024-01-09 01:26 | XMS_ITS | Encounter Summary ---
[place] [address] Care Team Providers Care Central Office Repairer Name Role Phone Michael Franco MD Primary Care Provider [phone] Reason for Visit * Reason Comments Prostate Cancer Encounter Details Date Type Department Care Team (Late st Contact Info) Description 03/24/2014 3:00 PM EST Follow-Up Hematology Oncology at [address] [phone] John Wilson MD [address] [place] [address] Prostate cancer Discharge Disposition: Home Social History [...] Sign Reading Time Taken Comments Blood Pressure 143/83 03/24/2014 2:59 PM EST Pulse 66 03/24/2014 2:59 PM EST Temperature 36.7 ??C (98.1 ??F) 03/24/2014 2:59 PM ES T Respiratory Rate 18 03/24/2014 2:59 PM EST Oxygen Saturation 98% 03/24/2014 2:59 PM EST Inhaled Oxygen Concentration - - Weight 117.9 kg (260 lb) 03/24/2014 2:59 PM EST Height 185.4 cm (6' 0.99) 03/24/2014 2:59 PM ES T Body Mass Index 34.31 03/24/2014 2:59 PM EST documented in this encounter Progress Notes * John Wilson MD - 03/24/2014 3:15 PM EST Problem list 1. Prostate cancer Diagnosed in 2006 with a PSA of 4.8. He underwent laparoscopic prostatectomy. He was found of [place]'s 7 with perineural invasion but no extracapsular [...] is continuing to do well and enjoy penitentiary without any difficulties or medical problems. His bowels are fine and he is not having any urinary difficulties. Review of systems otherwise negative. He has no significant bone pain and is physically active. Past history and social history are reviewed. He is enjoying his penitentiary Review of Systems Constitutional: Negative for fever, [...] normal Neurologic: Normal Results for MARIBELL KAUFFMAN SREstela ( ) as of 09/15/2012 14:36 Ref. Range 02/04/2011 08:55 07/18/2011 11:36 10/10/2011 13:26 03/09/2012 09:17 09/10/2012 12:19 03/16/13 03/16/14 PSA Latest Range: 0.00-4.00 ng/mL 0.13 <0.03 <0.03 <0.03 <0.03 <0.03 <0.03 Assessment/Plan: Maribell is doing well and has no evidence of any recurrence of prostate cancer now going on three years after treatment. His PSA is undetectable. At this point chances are he will be cured, but I have recommended yearly PSAs. We will be glad to see him back in a year with a PSA prior to return. He will let us know if any issues or problems develop in the interim. documented in this encounter Plan of Treatment Upcoming Encounters Date Type Department Care Team (Late st Contact Info) Description 01/20/2024 9:30 AM EDT Office Visit Hematology/Oncology at [address] [phone] Miguelina Lucia APRN [facility] [place] [address] 02/27/2024 2:15 PM EDT Office Visit Dermatology at [place] [address] [place] [address] Eliel Vanessa MD [address], [place] [address] documented as of this encounter Visit Diagnoses Diagnosis Prostate cancer Malignant neoplasm of prostate documented in this encounter Care Teams Central Office Repairer Relationship Specialty Start Date End Date Michael Franco MD [address] [facility] [place] [address] PCP - General 04/03/10 05/15/21 documented as of this encounter
--- OUTSIDE RECORDS SUMMARY | 2024-01-09 01:27 | XMS_ITS | Encounter Summary ---
Author Organization [facility] Address [facility] [place] [address] Care Team Providers Care [facility] Nurse Name Role Phone Michael Franco MD Primary Care Provider [phone] Encounter Details Date Type Department Care Team (Latest Contact Info) Description 11/18/2011 11:21 AM EDT - 11/18/2011 11:59 PM EDT Hospital Encounter XRay at [address] [place] [phone] CLINIC, Kehinde King MD [facility] [place] [address] Aortic stenosis Discharge Disposition: Home Social History Tobacco Use [...] mg Cap 03/13/2010 GLUCOSAMINE HCL/CHONDRO EVANS A (GLUCOSAMINE-CHONDRO ITIN ORAL) 03/13/2010 acetaminophen (TYLENOL) 500 mg tablet Take 1-2 tablets by mouth every 6 hours as needed for Pain. 12/09/2011 03/16/2015 metoprolol tartrate (LOPRESSOR) 25 mg tablet Take 1 tablet by mouth 2 times daily. 60 tablet 1 12/09/2011 03/16/2015 senna-docusate (PERICOLACE) 8.6-50 mg per tablet Take 2 tablets by mouth daily. 12/09/2011 03/16/2015 ibuprofen (ADVIL;MOTRIN) 200 mg tablet Take 200 mg by mouth nightly. 12/09/2011 chlorhexidine (HIBICLENS) 4 % external liquidIndications:Ao rtic stenosis Apply topically daily as needed. Shower from head to toe with Chlorhexidine the night before surgery 120 mL 0 11/18/2011 12/06/2011 aspirin 81 mg EC tablet Take 81 mg by mouth daily. 08/30/2022 lisinopril (PRINIVIL;ZESTRIL) 10 mg tablet Take 10 mg by mouth daily. 12/09/2011 simvastatin (ZOCOR) 80 mg tablet Take 80 mg by mouth daily. 10/04/2010 12/09/2011 ERGOCALCIFEROL, VITAMIN D2, (VITAMIN D ORAL) 03/13/2010 03/27/2017 documented as of this encounter Plan of Treatment Upcoming Encounters Date Type Department Care Team (Late st Contact Info) Description 01/20/2024 9:30 AM EDT Office Visit Hematology/Oncology at [address] [phone] Miguelina Lucia APRN [facility] [place] [address] 02/27/2024 2:15 PM EDT Office Visit Dermatology at [place] [address] [place] [phone] Eliel Vanessa MD [address], MICHAEL [place] [address] documented as of this encounter Procedures Procedure Name Priority Date/Time Associated Diagnosis Comments XR CHEST PA AND LATERAL Routine 11/18/2011 11:43 AM EDT Aortic valve disorders documented in this encounter Results * XR CHEST ROUTINE PA & LATERAL (11/18/2011 11:43 AM EDT) Anatomical Region Laterality Modality Chest N/A Radiographic Komal ging 11/18/2011 11:4 3 AM EDT Narrative 11/18/2011 2:55 PM EDT Examination CHEST TWO VIEWS Clinical History preop AVR. Technique PA and lateral radiographs of the chest. Comparison No priors available. Findings The lungs are clear. ??The cardiomediastinal silhouette, martín, pulmonary vasculature, and pleura appear within normal limits. ??The skeletal structures are unremarkable. ?? Impression Normal chest radiograph. Procedure Note Kay Brown MD - 11/18/2011 Examination CHEST TWO VIEWS Clinical History preop AVR. Technique PA and lateral radiographs of the chest. Comparison No priors available. Findings The lungs are clear. The cardiomediastinal silhouette, martín, pulmonary vasculature, and pleura appear within normal limits. The skeletalstructures are unremarkable. Impression Normal chest radiograph. Kehinde Munoz MD IMG DX ORDERABLES documented in this encounter Visit Diagnoses Diagnosis Aortic stenosis Aortic valve disorders documented in this encounter Care Teams [facility] Nurse Relationship Specialty Start Date End Date Michael Franco MD [address] [address] PCP - General 04/03/10 05/15/21 documented as of this encounter
--- OUTSIDE RECORDS SUMMARY | 2024-01-09 01:27 | XMS_ITS | Encounter Summary ---
Author Organization [facility] [place] [address] Care Team Providers Care Naval Surface Fire Support Planner Name Role Phone Michael Franco MD Primary Care Provider [phone] Encounter Details Date Type Department Care Team (Late st Contact Info) Description 11/04/2011 11:10 AM EDT Office Visit [place] [address] Erinn Munoz MD [facility] [place]ARDIOTH[place] [address] Aortic stenosis (Primary Dx) Discharge Disposition: Home Social History [...] Sign Reading Time Taken Comments Blood Pressure 142/90 11/04/2011 11:06 AM EDT Pulse 80 11/04/2011 11:06 AM EDT Temperature - - Respiratory Rate - - Oxygen Saturation 98% 11/04/2011 11:06 AM EDT Inhaled Oxygen Concentration - - Weight 114.8 kg (253 lb) 11/04/2011 11:06 AM EDT Height 185.4 cm (6' 1) 11/04/2011 11:06 AM EDT Body Mass Index 33.38 11/04/2011 11:06 AM EDT documented in this encounter Progress Notes * Erinn Munoz MD - 11/04/2011 12:17 PM EDT I am seeing Mr. Kauffman at the request of Dr. Lisa for evaulation of aortic stenosis. This is a 70 yo male who has been followed for progressive aortic stenosis over time. Last Aprilhe was going to undergo knee surgery and Stress test was done, which showed no ischemia and ECHO showed a mean gradient of 35 mmHg. He went through that knee surgery without difficulty. He has, however, noted progressive and predictable exertional chest pain symptoms. He denies any real shortness of breath. No orthopnea or PND. No weight gain or leg edema. No sense of his heart racing or palpitations. Repeat ECHO shows mean gradient of 43 now, peak gradient of 76 (p velocity 4.3 m/s). EF is hyperdynamic. No other valve disease noted, but I do see mitral calcification, particularly in the anterior leaflet. He comes in today to discuss surgical TX. No Known Allergies Outpatient prescriptions marked as taking for the 11/04/11 encounter (Office Visit) with ERINN MUNOZ Medication Sig Dispense Refill ??? aspirin 81 mg EC tablet Take 81 mg by mouth daily. ??? lisinopril (PRINIVIL;ZESTRIL) 10 mg tablet Take 10 mg by mouth daily. ??? MULTI-VITAMIN ORAL Take by mouth daily. ??? simvastatin (ZOCOR) 80 mg tablet Take 80 mg by mouth daily. ??? ibuprofen (ADVIL;MOTRIN) 200 mg tablet 800 MG = 1 Tablet(s), PO, Three times daily ??? ERGOCALCIFEROL, VITAMIN D2, (VITAMIN D ORAL) ??? Flaxseed Oil 1,000 mg Cap ??? GLUCOSAMINE HCL/CHONDRO EVANS A (GLUCOSAMINE-CHONDROITIN ORAL) Patient Active Problem List Diagnoses Code ??? Prostate cancer 185A ??? ED (erectile dysfunction) 607.84R ??? Aortic stenosis 424.1Y PMH: Lap. Prostatectomy for prostate cancer S/p XRT and hormonal TX for prostate cancer Kidney stones Tonsils S/p APPY FH: positive for cancer in multiple family member, no overt heart disease SH: , accompanied by . Former cigar smoker, quit 4 years ago. Drinks 1-2 drinks daily. 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 ROS: very rare urinary incontinence, erectile dysfunction, occaisonal constipation, no significant bowel problems from radiation. Physical Exam: BP 142/90 Pulse 80 Ht 185.4 cm (6' 1) Wt 114.76 kg (253 lb) BMI 33.38 kg/m2 SpO2 98% Lung: CTA CV: RRR, 4/6 [facility] with radiation to the carotids No peripheral edema Palpable pulses in all extremities A/P: 70 yo male with symptomatic severe aortic stenosis. He clearly meets indications for aortic valve replacement. He likely would do best with a tissue valve prosthesis. He needs to undergo cardiaccath and he would like that done here. I do not think the surgery is urgent, but there is nothing to be gained by waiting overly long. He needs to be scheduled for cardiac cath. I need to see him in the clinic after cath to proceed with scheduling surgery. documented in this encounter Plan of Treatment Upcoming Encounters Date Type Department Care Team (Late st Contact Info) Description 01/20/2024 9:30 AM EDT Office Visit Hematology/Oncology at [address] [phone] Miguelina Lucia APRN [facility] [place] [address] 02/27/2024 2:15 PM EDT Office Visit Dermatology at [place] [address] [place] [address] Eliel Vanessa MD [address], MICHAEL A DERMATOLOGY [place], [place] [address] documented as of this encounter Visit Diagnoses Diagnosis Aortic stenosis- Primary Aortic valve disorders documented in this encounter Care Teams Naval Surface Fire Support Planner Relationship Specialty Start Date End Date Michael Franco MD [address] [place] [address] PCP - General 04/03/10 05/15/21 documented as of this encounter
--- OUTSIDE RECORDS SUMMARY | 2024-01-09 01:27 | XMS_ITS | Encounter Summary ---
[place] [address] Care Team Providers Care Associate Field Service Engineer Name Role Phone Michael Franco MD Primary Care Provider [phone] Encounter Details Date Type Department Care Team (Latest Contact Info) Description 11/14/2011 8:51 AM EDT - 11/14/2011 3:49 PM EDT Hospital Encounter [place] [phone] Michael Simental MD [facility] [place] [address] Jaron Arrington PA [facility] [place] [address] Aortic stenosis Discharge Disposition: Home Social History [...] Sign Reading Time Taken Comments Blood Pressure 113/63 11/14/2011 2:35 PM EDT Pulse 78 11/14/2011 2:35 PM EDT Temperature 36.3 ??C (97.3 ??F) 11/14/2011 1:41 PM ED T Respiratory Rate 16 11/14/2011 2:35 PM EDT Oxygen Saturation 96% 11/14/2011 2:35 PM EDT Inhaled Oxygen Concentration - - Weight - - Height - - Body Mass Index - - documented in this encounter Discharge Instructions * Discharge Instructions* Sadaf Garza RN - 11/14/2011 1:47 PM EDT ACTIVITY If you are discharged the same day as your procedure, do not drive yourself home. Arrange to have another person drive. You may walk around when you get home, but keep your activity at a minimum until the morning. Do not bend over, strain, or lift heavy objects for 24 hours after the procedure. Do not participate in active sports for 48 hours. You may engage in sexual activity after 48 hours. These restrictions do not apply if the catheter was placed in a blood vessel in your arm. CATHETER INSERTION AREA CARE Take the band-aid off the catheter insertion area in the morning following the procedure. You may take a shower if you wish. Wash the area with soap and water. Look for signs of infection over the next several days. A little spot of blood at the catheter insertion area is not unusual. A bruise or a small lump under the skin is normal; they generally disappear in 3 to 4 days. For the first several days at home ifyou cough or sneeze, hold your groin to help prevent bleeding. Expect some mild tenderness over the area where the catheter was inserted. You will notice this after the local anesthetic (numbing) wears off. This should improve during the 24 to 48 hours after theprocedure. Take Tylenol if needed. Contact your Doctor if the discomfort worsens. PROBLEMS TO WATCH FOR If there is BRIGHT RED BLOOD flowing from the Catheter insertion area: * Stop what you are doing and lie down. *Hold pressure steadily on the area for 15 minutes. * Call for help. * If the bleeding does not stop in 15 minutes, call 911 for an ambulance. If there is swelling with black and blue color at the catheter insertion area, there may be bleeding inside. Contact the doctor if there is any increase in size. Look at the insertion site for the first few days at home. Signs of infection are: * Redness * Swelling *Yellow, white, green, or brown foul smelling drainage * Increased soreness If you think there is an infection, take your temperature. Then call your Doctor. If you feel faint or dizzy, lie down with your feet elevated. Have someone call the Doctor. If you are alert, drink fluids. HOW TO DEAL WITH CHEST PAIN If you had only the cardiac catheterization, treat any angina or chest discomfort as instructed. Stop what you are doing, and sit or lie down. If prescribed, take nitroglycerin under your tongue. If the angina isn't relieved, take another nitroglycerin in 5 minutes. After another 5 minutes, a third Nitroglycerin may be taken. If the angina isn't improved, you should call for an ambulance to bringyou to the nearest Emergency Room. If your angina is more frequent or more severe than before, callyour Doctor. We usually would not expect you to have angina after an angioplasty. If you do get angina, treat itas you did before, but also contact your Doctor. RETURN TO WORK The Doctor will usually have told you when to return to work. If you do not perform any heavy physical labor, most people can return to work in a few days. documented in this encounter Medications at Time of Discharge Medication Sig Dispensed Refills Start Date End Date MULTI-VITAMIN ORAL Take by mouth daily. 10/04/2010 Flaxseed Oil 1,000 mg Cap 03/13/2010 GLUCOSAMINE HCL/CHONDRO EVANS A (GLUCOSAMINE-CHONDROITIN ORAL) 03/13/2010 aspirin 81 mg EC tablet Take 81 mg by mouth daily. 08/30/2022 lisinopril (PRINIVIL;ZESTRIL) 10 mg tablet Take 10 mg by mouth daily. 12/09/2011 simvastatin (ZOCOR) 80 mg tablet Take 80 mg by mouth daily. 10/04/2010 12/09/2011 ibuprofen (ADVIL;MOTRIN) 200 mg tablet 800 MG = 1 Tablet(s), PO, Three times daily 03/13/2010 11/18/2011 ERGOCALCIFEROL, VITAMIN D2, (VITAMIN D ORAL) 03/13/2010 017 documented as of this encounter Progress Notes * Sadaf Garza RN - 11/14/2011 3:34 PM EDT Discharge instructions reviewed with patient and his , both verbalized a good understanding of same. Patient up to bathroom now attempting to void. Patient able to void after urinary catheter removed. Ready for discharge. * Katerine Hoffman RN - 11/14/2011 2:56 PM EDT Patient up OOB ambulating in santizo with steady gait. Right groin site remains CDI without s/s of hematoma or bleeding. documented in this encounter Miscellaneous Notes * Miscellaneous - Provider, Scanning - 11/14/2011 9:17 AM EDT documented in this encounter Plan of Treatment Upcoming Encounters Date Type Department Care Team (Late st Contact Info) Description 01/20/2024 9:30 AM EDT Office Visit Hematology/Oncology at [address] [phone] Miguelina Lucia APRN [facility] [place] [address] 02/27/2024 2:15 PM EDT Office Visit Dermatology at [place] [address] [place] [address] Eliel Vanessa MD [address], [place] [address] documented as of this encounter Procedures Procedure Name Priority Date/Time Associated Diagnosis Comments CARDIAC CATHETERIZATION 11/14/19 12 10:54 AM EDT CAD,PRE-OP documented in this encounter Visit Diagnoses Diagnosis Aortic stenosis Aortic valve disorders documented in this encounter Administered Medications Inactive Administered Medications - up to 3 most recent administrations Medication Order MAR Action Action Date Dose Rate Site diaZEPam (VALIUM) tablet 5 mg 5 mg, Oral, ONCE, 1 dose, On Deborah 7/12 at 1030, Cath (Day of Procedure), Routine Given 11/14/2011 10:30 AM EDT 5 mg diphenhydrAMINE (BENADRYL) tablet 25 mg 25 mg, Oral, ONCE, 1 dose, On Deborah 7/12 at 1030, Cath (Day of Procedure), Routine Given 11/14/2011 10:30 AM EDT 25 mg sodium chloride 0.9% infusion 200 mL/hr, Intravenous, CONTINUOUS, Starting on Deborah 712 at 1030, Until Deborah 712 at 1821, Cath (Day of Procedure) New Bag 11/14/2011 10:30 AM EDT 200 mL/hr 200 mL/hr sodium chloride 0.9% infusion 200 mL/hr, Intravenous, CONTINUOUS, Starting on Deborah 712 at 1245, Until Deborah 7 at 1544 New Bag 11/14/2011 12:28 PM EDT 200 mL/hr 200 mL/hr documented in this encounter Active and Recently Administered Medications Times are shown in EDT. Scheduled Medication Order 11/12/2011 11/13/2011 11/14/2011 diaZEPam (VALIUM) tablet 5 mg (COMPLETED) 5 mg, Oral, ONCE, 1 dose, On Deborah 712 at 1030, Cath (Day of Procedure), Routine 1030 (Given - Provid er: Jackeline Rizzo RN) diphenhydrAMINE (BENADRYL) tablet 25 mg (COMPLETED) 25 mg, Oral, ONCE, 1 dose, On Deborah 712 at 1030, Cath (Day of Procedure), Routine 1030 (Given - Provid er: Jackeline Rizzo RN) Continuous Medication Order 11/12/2011 11/13/2011 11/14/2011 sodium chloride 0.9% infusion (CANCELED) 200 mL/hr, Intravenous, CONTINUOUS, Starting on Deborah 7/12 at 1030, Until Deborah 712 at 1821, Cath (Day of Procedure) 1030 (New Bag - Prov ider: Jackeline Rizzo RN)1228 (Stopped - Provider: Stella Mills RN) sodium chloride 0.9% infusion () 200 mL/hr, Intravenous, CONTINUOUS, Starting on Deborah 7 at 1245, Until Deborah 7 at 1544 1228 (New Bag - Prov ider: Stella Mills RN) PRN Medication Order 11/12/2011 11/13/2011 11/14/2011 heparin (porcine) injection (CANCELED) ONCE PRN, Starting on Deborah 7 at 1136, Until Deborah 11/14/11 at 1821, Intra-Operative (Intra-Procedure), Routine 1136 (Given - Provid er: Michael Simental MD) iohexol (OMNIPAQUE) 350 mg/mL injection (CANCELED) ONCE PRN, Starting on Deborah 7 at 1208, Until Deborah 7 at 1821, Per Protocol, Cath (Intra-Procedure), Routine 1208 (Given - Provid er: Michael Simental MD) lidocaine (PF) (XYLOCAINE) 10 mg/mL (1 %) injection (CANCELED) ONCE PRN, Starting on Deborah 11/14/11 at 1126, Until Deborah 11/14/11 at 1821, Intra-Operative (Intra-Procedure), Routine 1126 (Given - Provid er: Michael Simental MD)1131 (Given - Provider: Michael Simental MD) documented in this encounter Care Teams Associate Field Service Engineer Relationship Specialty Start Date End Date Michael Franco MD [address] [place] [address] PCP - General 04/03/10 05/15/21 documented as of this encounter
--- OUTSIDE RECORDS SUMMARY | 2024-01-09 01:27 | XMS_ITS | Encounter Summary ---
Author Organization [place] [address] Care Team Providers Care Oil Processing Technician Name Role Phone Michael Franco MD Primary Care Provider [phone] Encounter Details Date Type Department Care Team (Late st Contact Info) Description 12/05/2011 7:18 AM EDT Anesthesia Event [place] [address] Chet Davis MD [facility] [place] [address] Michael Billings MD [facility] [place] [address] Anesthesia Record Procedure Summary Procedure Name Responsible Anesthesiologist Anesthesia Start Time Anesthesia Stop Time @REPLACE AORTIC VALVE, OPEN, W\CPB, W\PROSTHETIC VALVE (WRVU 41.32) (Chest) Chet Davis MD 12/05/11 0718 12/05/11 1251 Events Date Time Event Comment 12/05/2011 0711 0718 Start 1251 Stop Meds * Agents No agents on file. * Blood No blood administrations on file. Lines, Drains, and Airways Type Details Placement Removal (RETIRED) Arterial LIne 12/05/11; 12/06/11; 1140 12/05/11 0000 by Rochelle Wall RN 12/06/11 1140 by Hossein Fernandez RN (RETIRED) Central Line Assessment/Interventio n - single lumen 12/05/11 0000 by Rochelle Wall RN 12/06/11 1140 by Hossein Fernandez RN Pulmonary Artery Catheter - Single Lumen 12/05/11; Right; subclavian vein; 12/05/11; 200312/05/11 0000 by Rochelle Wall RN 12/05/112003 by Aminta Kingsley RN Urethral Catheter 12/05/11; indwelling catheter w/ core temperature probe; 100% silicone; 16; inserted (without difficulty, urine noted in catheter); 1; drainage bag to dependent drainage; 12/07/11; 1605 12/05/11 0000 by Rochelle Wall RN 12/07/11 1605 by Nuno Thomas RN Incision 12/05/11; chest; 01/07/22 (LDA cleanup utility RA#[id number]); 1715 (LDA cleanup utility RA#[id number]) 12/05/11 0000 by Rochelle Wall RN 01/07/22 1715 by Kimberli Cortes Chest Tube 12/05/11; 12/06/11; 1130 12/05/11 0000 by Rochelle Wall RN 12/06/11 1130 by Hossein Fernandez RN Chest Tube 12/05/11; 12/06/11; 1130 12/05/11 0000 by Rochelle Wall RN 12/06/11 1130 by Hossein Fernandez RN (RETIRED) Peripheral IV Line - Single Lumen 12/05/11; 0641; 12/09/11; 1318 12/05/11 0641 by Katerine Hoffman RN 12/09/11 1318 by Nuno Thomas RN (RETIRED) Non-Surgical Airway Size: 7.5 mm; Removal Date: 12/05/11; Removal Time: 17412/05/11 1253 by Catrachito Dueñas RCP 12/05/11 1743 by Kulwinder Roger TRANSPLANT IMMUNOLOGIST documented in this encounter Social History Tobacco Use Types Packs/Day Years Used Date Smoking Tobacco: Former Cigars Smokeless Tobacco: Never Alcohol Use Standard Drinks/Week Comments Yes 7 (1 standard drink = 0.6 oz pur e alcohol) Sex and Gender Information Value Date Recorded Sex Assigned at Not on file Gender Identity Not on file Sexual Orientation Not on file documented as of this encounter OR Notes * Anesthesia Postprocedure Evaluation - Mayela Perez MD - 12/06/2011 2:04 PM EDT Patient: Ayad Kauffman Sr. Procedure(s) Performed: Procedure(s): @REPLACE AORTIC VALVE, W\CPB, W\PROSTHETIC VALVE Patient location: ICU Post-op pain: Adequate analgesia Post-op nausea: nausea or vomiting an issue but being treated with medication Last Vitals: Filed Vitals: 12/06/11 1200 BP: 135/70 Pulse: 79 Temp: Resp: 18 Post-op cardiovascular and respiratory status: is stable Level of consciousness: awake, alert and oriented Complications: no apparent complications, tolerated the procedure well and no evidence of recall Fluid Status: normal * Anesthesia Preprocedure Evaluation - Mayela Perez MD - 12/04/2011 8:14 PM EDT Anesthesia Evaluation Airway Mallampati: III TM distance: >3 FB Neck ROM: full Comment: Gr 1-2 airway with cricoid pressure on DL in 2006 Dental Comment: Chilkat dentition, none loose Pulmonary breath sounds clear to auscultation (+) sleep apnea, (-) COPD, asthma and shortness of breath Cardiovascular (+) hypertension, valvular problems/murmurs , angina with exertion, murmur, (-) dysrhythmias and CASTILLO CAD: mild LAD disease. Rhythm: regular Rate: normal ROS comment: Cardiac cath: mild diffuse disease in LAD, other coronaries normal. CO 6.9, PA 27/14 Reportedly on Echo, with peak/mean gradients 76/43 and normal EF. Neuro/Psych (-) seizures and CVA Comments: Daily etOH use GI/Hepatic/Renal (+) chronic renal disease (h/o KAR following prostatectomy; nephrolithiasis), (-) GERD Comments: Prostate ca s/p prostatectomy, chemo, XRt No dysphagia Endo/Other (-) Type II DM and clotting problem (no blood thinners) Abdominal Anesthesia Plan ASA 4 General with intravenous induction 71 yo M with , HTN, suspected MAGDY, prostate cancer presenting for AVR. Plan GETA with A line, PAC, ANDREINA. Plan/risks discussed with pt and his . Consent obtained. Anesthetic plan and risks discussed with patient and spouse. Use of blood products discussed with patient and spouse whom. Plan discussed with attending. documented in this encounter Miscellaneous Notes * Addendum Note - Rochelle Goss - 12/24/2011 2:14 PM EDT documented in this encounter Plan of Treatment Upcoming Encounters Date Type Department Care Team (Late st Contact Info) Description 01/20/2024 9:30 AM EDT Office Visit Hematology/Oncology at [address] [phone] Miguelina Lucia [facility] [place] [address] 02/27/2024 2:15 PM EDT Office Visit Dermatology at [address] [place] [address] Eliel Vanessa MD [address], [place] [address] documented as of this encounter Visit Diagnoses Not on filedocumented in this encounter Care Teams Oil Processing Technician Relationship Specialty Start Date End Date Michael Franco MD [address] [place] [address] PCP - General 04/03/10 05/15/21 documented as of this encounter
--- OUTSIDE RECORDS SUMMARY | 2024-01-09 01:27 | XMS_ITS | Encounter Summary ---
Author Organization [facility] [place] [address] Care Team Providers Care Senior Administrative Services Officer Name Role Phone Kristian Franco MD Primary Care Provider [phone] Reason for Visit * Reason Comments Prostate Cancer follow up Encounter Details Date Type Department Care Team (Late st Contact Info) Description 10/23/2011 2:00 PM EDT Follow-Up Hematology Oncology at [address] [phone] Kristian Meneses MD [facility] [place] [address] Prostate cancer (Primary Dx) Discharge Disposition: Home Social History Tobacco Use Types Packs/Day Years Used Date Smoking Tobacco: Former Alcohol Use Standard Drinks/Week Comments Yes 7 (1 standard drink = 0.6 oz pur e alcohol) Sex and Gender Information Value Date Recorded Sex Assigned at Not on file Gender Identity Not on file Sexual Orientation Not on file documented as of this encounter Last Filed Vital Signs Vital Sign Reading Time Taken Comments Blood Pressure 118/83 10/23/2011 1:38 PM EDT Pulse 89 10/23/2011 1:38 PM EDT Temperature 36.7 ??C (98.1 ??F) 10/23/2011 1:38 PM ED T Respiratory Rate 16 10/23/2011 1:38 PM EDT Oxygen Saturation 97% 10/23/2011 1:38 PM EDT Inhaled Oxygen Concentration - - Weight 113.5 kg (250 lb 3.6 oz) 10/23/2011 1:38 PM EDT Height 185.4 cm (6' 0.99) 10/23/2011 1:38 PM ED T Body Mass Index 33.02 10/23/2011 1:38 PM EDT documented in this encounter Progress Notes * Kristian Meneses MD - 10/23/2011 2:53 PM EDT Problem list #1 prostate cancer Diagnosed in 2006 with a PSA of 4.8. He underwent laparoscopic prostatectomy. He was found of Michelle's 7 with perineural invasion but no extracapsular extension. He did well until his PSA began to rise in 2010. It andreina to 0.13 in January of 2011 and radiation was started along with Lupron in February of 2001. He completed radiation therapy July 03, 2011. #2 aortic stenosis He has aortic stenosis and is aware of that and they know that he is going to need an aortic valve replacement in the future. #3 hyperlipidemia #4 hypertension Medications #1 Avastin #2 lisinopril #3 Lupron every 4 months History present illness Please see path results below. He was initially found of a PSA of 4.8 back in 2006. He underwent laparoscopic prostatectomy which did not include lymph node dissection. Pathology showed this to have clean margins with no extracapsular extension. Heyburn score was 7 with 35% of prostate gland involved. He was then followed expectantly with PSAs until 2010 were began to rise up to 0.06 and by January there up to 0.13 and radiat ion Lupron were initiated. He returns today for his third dose of Lupron and has decided not to take it. He reports of Lupron makes him feel washed out, week, run down and just in general does not feel good on it and since it is not clear that he has to have it, he would like to stop. Otherwise he is doing well and has no complaints in terms of bone pain weight loss change in appetite etc. Provider: KRISTIAN LOVELACE Pt. Name: MARIBELL KAUFFMAN SR ---Pathologic Diagnosis--- Specimen type: Prostatectomy Histologic type: Adenocarcinoma Michelle grade: 3+4 Heyburn score: 7 Location of tumor: Bilateral lobes % prostate involved by tumor: 35 Extracapsular extension (ISAAK):See comment=ISAAK NOT warrented Seminal vesicle invasion: Absent Margins: Margins uninvolved by invasive carcinoma Perineural invasion: Present Lymphovascular invasion: Absent Additional findings: HGPIN TNM STAGING (AJCC, 6th ed., 2003): Extent of invasion: pT2c: (organ confined, bilateral disease) Regional lymph nodes: pNX (cannot be assessed) Distant metastasis: pMX (cannot be assessed) Post op 12/16 PSA=0.04 03/18 0.03 08/17 0.0 04/18 <0.1 11/17 0.1 12/18 0.06 03/20 0.05 08/19 0.04 12/19 0.06 03/21 0.07 09/19 0.09 02/19 0.13 10/21 <0.03 Review of systems Essentially negative. Specifically no weight loss, nausea vomiting, shortness of breath, bone pain,chest pain, fevers, diarrhea, abdominal pain, change in bowel or bladder habits, edema. His real symptoms and only come during the first month or so being on Lupron and by the time he gets here, 4 months after the injection, side effects essentially gone with the first 2 months he feelsreally run down. 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 [place] was [place] in about [place]. He continues to work. He has 2 sons who are healthy. He and his ride motorcycles. Past medical history #1 prostate cancer as noted above #2 aortic stenosis #3 hyperlipidemia #4 hypertension Family history He has a significant family history for prostate and breast cancer. Specifically his mother had breast cancer around age 50 and from it, his mother's sister had 2 daughters both with breast cancer, his maternal grandmother had ovarian cancer. There were 4 brothers in his family and in 3 of the 4 have had prostate cancer. The youngest brother is cancer free at this point. Medications #1 some Avastin #2 lisinopril #3 Lupron Physical exam Not repeated today Assessment He has thought things over and decided like to stop the Lupron. He only had a very small bump in his PSA to 0.13 and received radiation to the prostate bed including the lymph nodes and Lupron was added as an afterthought and it is not clear that he needs that for 2 full years and since it makes him feel so run down he would like to stop it. We discussed this today specifically the fact that we don't have an absolute proof that in his situation there is a definitive survival advantage and even if there were it probably only benefits a small percentage of patients. Given this I don't think is unreasonable to stop it but it might be reasonable to try to suppress his testosterone with Casodex,even though stop the gold standard, it may produce enough testosterone deficit have some clinical benefit. And if it gives him intolerable side effects he can just quit. We decided we try Casodex 50 mg twice a day and monitor his PSA chemistries and testosterone levelsevery 4 months and he knows he can stop the Casodex for side effects time. To be discussed on next visit: Note the significant positive family history above. Specifically, his mother had breast cancer, as maternal grandmother had ovarian cancer, and he had 2 cousins with breast cancer. Three out of four brothers and his family have had prostate cancer. He may have a BRCA mutation. I discussed with him the possibility of genetic counseling and is interested and will consider making that appointment. Plan #1 stop Lupron at his request #2 try Casodex 50 mg twice a day #3 monitor PSA chemistries and testosterone levels every 4 months #4 see him here in 4 months documented in this encounter Plan of Treatment Upcoming Encounters Date Type Department Care Team (Late st Contact Info) Description 01/20/2024 9:30 AM EDT Office Visit Hematology/Oncology at [address] [phone] Miguelina Lucia APRN [facility] [place] [address] 02/27/2024 2:15 PM EDT Office Visit Dermatology at [address] [place] [address] Eliel Vanessa MD [address] [facility], [place] [address] documented as of this encounter Visit Diagnoses Diagnosis Prostate cancer- Primary Malignant neoplasm of prostate documented in this encounter Care Teams Senior Administrative Services Officer Relationship Specialty Start Date End Date Kristian Franco MD [address] [place] [address] PCP - General 04/03/10 05/15/21 documented as of this encounter
--- OUTSIDE RECORDS SUMMARY | 2024-01-09 01:27 | XMS_ITS | Encounter Summary ---
Author Organization [facility] Include [address] [facility] [address] Care Team Providers Care Vault Cashier Name Role Phone Michael Franco MD Primary Care Provider [phone] Reason for Visit * Reason Comments Cardiac Valve Problem Encounter Details Date Type Department Care Team (Late st Contact Info) Description 11/14/2011 7:45 AM EDT Office Visit Cardiology at [address] [phone] Jaron Arrington PA [facility] [place] [address] (aortic stenosis) (Primary Dx) Discharge Disposition: Home Social History [...] Sign Reading Time Taken Comments Blood Pressure 146/80 11/14/2011 8:14 AM EDT Pulse 76 11/14/2011 8:14 AM EDT Temperature - - Respiratory Rate 16 11/14/2011 8:14 AM EDT Oxygen Saturation 97% 11/14/2011 8:14 AM EDT Inhaled Oxygen Concentration - - Weight 114.8 kg (253 lb) 11/14/2011 8:14 AM EDT Height 185.4 cm (6' 1) 11/14/2011 8:14 AM EDT Body Mass Index 33.38 11/14/2011 8:14 AM EDT documented in this encounter Progress Notes * Jaron Arrington PA - 11/14/2011 9:02 AM EDT Pre-Cardiac Catheterization Assessment History: Ayad Kauffman Sr. here to be evaluated prior to planned diagnostic cardiac catheterization. He has severe aortic stenosis and is considering valve replacement and requires coronary angiography prior to proceeding. (see Dr. Munoz's note below) This is a 70 yo male who [...] in today to discuss surgical TX. No current outpatient prescriptions on file. No Known Allergies PMH: Lap. Prostatectomy for prostate cancer S/p XRT and hormonal TX for prostate cancer Kidney stones Tonsils S/p APPY Coronary Risk factors: Smoking: cigars. Quit 4 years ago Hypertension: neg Diabetes: neg Lipid disorder: treated Known or suspected valvular heart disease: as above Physical Exam: He appears well, in no apparent distress. Alert and oriented times three, pleasant and cooperative. Filed Vitals: 11/14/11 0814 BP: 146/80 Pulse: 76 Resp: 16 HEENT: No JVD. Radiated mumur. Lungs: Clear to A+P Cor: NSR, S1 and S2 physiologic. No precordial heaves or thrills. PMI unremarkable. 4/6 SE audible murmur, no rub or gallop. Ext: Pulses well preserved, no edema, cyanosis. Assessment: Severe As Plan: Elective cardiac catheterization 1. A discussion was held reviewing the benefits and attendant risks of diagnostic or therapeutic catheterization. The risks include, but are not limited to: stroke, , myocardial infarction, bleeding, limb loss, infection, dye reaction, vascular injury, arrhythmias. If an intervention is performed, risks would include the potential for vessel closure, need for emergency CABG, subacute closure, restenosis. The patient appears to understand these risks and benefits. The informed consent was signed. 2. Laboratory screening will be obtained before the procedure as ordered. 3. The patient's medications, NPO status after MN and other details of the planned procedure were discussed. Questions were addressed. 4. Follow up will be dependent on the results of the cardiac catheterization. documented in this encounter Procedure Notes * Provider, Scanning - 11/15/2011 5:20 AM EDTAssociated Order(s): SCAN DOC: CARDIAC CATH documented in this encounter Miscellaneous Notes * Miscellaneous - Ronald Vargas - 11/15/2011 7:12 AM EDT documented in this encounter Plan of Treatment Upcoming Encounters Date Type Department Care Team (Late st Contact Info) Description 01/20/2024 9:30 AM EDT Office Visit Hematology/Oncology at [address] [phone] Miguelina Lucia APRN [facility] [place] [address] 02/27/2024 2:15 PM EDT Office Visit Dermatology at [place] [address] [facility] [place] [address] Eliel Vanessa MD [address] [facility], [place] [place] [address] documented as of this encounter Procedures Procedure Name Priority Date/Time Associated Diagnosis Comments CARDIAC CATH SCAN 11/15/2011 5:2 0 AM EDT BMP W/FASTING GLUCOSE STAT 11/14/2011 7:43 AM EDT DIFFERENTIAL, AUTOMATED STAT 11/14/2011 7:43 AM EDT PROTHROMBIN TIME STAT 11/14/2011 7:43 AM EDT CBC (WITH DIFF) STAT 11/14/2011 7:43 AM EDT documented in this encounter Results * SCAN DOC: CARDIAC CATH (11/15/2011 5:20 AM EDT) Anatomical Region Laterality Modality Other Narrative 11/15/2011 7:12 AM EDT Procedure Note Provider, Scanning - 11/15/2011 5:20 AM EDT Scanning Provider MEDIA MGR SCAN EXT O RDR/RSLT * DIFFERENTIAL, AUTOMATED (11/14/2011 7:43 AM EDT) Neutrophil % 65.8 34.0 - 71.0 % CERNER MILLENNIUM Neutrophil Absolute 3.42 1.50 - 6.30 x10(3)/mcL CERNER MILLENNIUM Lymph % 20.4 19.0 - 53.0 % CERNER MILLENNIUM Lymphocytes Abs 1.1 1.0 - 3.6 x10(3)/mcL CERNER MILLENNIUM Monocyte % 6.6 4.0 - 13.0 % CERNER MILLENNIUM Monocyte Abs 0.3 0.2 - 1.0 x10(3)/mcL CERNER MILLENNIUM Eos % 6.0 0.0 - 7.0 % CERNER MILLENNIUM Eosinophils Abs 0.3 0.0 - 0.5 x10(3)/mcL CERNER MILLENNIUM Basophil % 1.0 0.0 - 2.0 % CERNER MILLENNIUM Baso [...] 0.05 x10(3)/mcL CERNER MILLENNIUM Blood specimen (specimen) 11/14/2011 7:43 AM EDT 11/14/2011 7:46 AM EDT T [facility] HEMATOLOGY ORDERABLE S CERMAGGY MILLENNIUM * (ABNORMAL) BMP W/FASTING GLUCOSE (11/14/2011 7:43 AM EDT) Glucose Fasting 109(H) 65 - 99 mg/dL CERNER MILLENNIUM Comment: ?Fasting* Glucose Interpretive Criteria Normal ?65-99 mg/dL Impaired Fasting glucose ?100-125 mg/dL Consistent with Diabetes Mellitus ? >or= 126 mg/dL *Fasting is defined as no caloric intake for at least 8 hours In the absence of unequivocal hyperglycemia a plasma glucose value of >or= 126 mg/dL should be repeated on a subsequent day. Diagnosis and Classification of Diabetes Mellitus, Position Statement from the [place] [employer]. ??Diabetes Care, Volume 33, Supplement 1, May 2009 Blood Urea Nitrogen 15 10 - 20 mg/dL CERNER MILLENNIUM Creatinine 0.81 0.80 - 1.50 mg/dL CERNER MILLENNIUM Comment: Please note that the pediatric reference intervals supplied above were not validated at [facility]. Results from pediatric patients should be interpreted in conjunction to the patient's age, height and muscle mass. Sodium 135 135 - 145 mmol/L CERNER MILLENNIUM Potassium [...] - 31 mmol/L CERNER MILLENNIUM Anion Gap 7 5 - 15 mmol/L CERNER MILLENNIUM Calcium 10.0 8.5 - 10.5 mg/dL CERNER MILLENNIUM Est Glomerular Filtration Rate [...] J Am Soc Nephrol;6:1963-72. Blood specimen (specimen) 11/14/2011 7:43 AM EDT 11/14/2011 7:46 AM EDT Narrative Resulting Agency Comment Spec In Lab T Dania ADAIR CHEMISTRY ORDERABLES Performing Organization Address City/[facility]/ZIP Co de Phone Number CERNER MILLENNIUM * (ABNORMAL) CBC (WITH DIFF) (11/14/2011 7:43 AM EDT) White Blood Cell 5.2 4.0 - 10.0 x10(3)/mc L CERNER MILLENNIUM Red Blood Cell 4.26(L) 4.63 - 6.08 x10(6)/mc L CERNER MILLENNIUM Hemoglobin 14.0 13.7 - 17.5 gm/dL CERNER MILLENNIUM Hematocrit 39.2(L) 40.0 - 51.0 % CERNER MILLENNIUM Mean Cell Volume 92.0 79.0 - 92.0 fL CERNER MILLENNIUM Mean Cell Hemoglobin 32.9(H) 25.6 - 32.2 pg CERNER MILLENNIUM Mean Cell Hemoglobin Concentration 35.7 32.0 - 36.5 gm/dL CERNER MILLENNIUM Platelet 162 145 - 370 x10(3)/mc L CERNER MILLENNIUM RDW Standard Deviation 42.7 35.0 - 46.0 fL CERNER MILLENNIUM RDW coefficient of variation 12.8 10.9 - 14.4 % CERNER MILLENNIUM Mean Platelet Volume 10.0 9.0 - 12.0 fL CERNER MILLENNIUM Blood specimen (specimen) 11/14/2011 7:43 AM EDT 11/14/2011 7:46 AM EDT Narrative Resulting Agency Comment Spec In Lab T Dania ADAIR HEMATOLOGY ORDERABLE S CERMAGGY WELLSENNIUM * PROTHROMBIN TIME (11/14/2011 7:43 AM EDT) Prothrombin Time 12.7 11.9 - 14.7 sec EFREM FATIMAIUM Comment: [facility] Transfusion Committee Guidelines: INR less than 2.0, PTT less than OR equal to 43.5 seconds, or Fibrinogen greater than or equal to 100 mg/dl indicate adequate procoagulant activity for hemostasis in patients without underlying bleeding disorders. International Normalization Ratio 0.9 0.9 - 1.1 EFREM PRISCILLAKELSEYIUM Blood specimen (specimen) 11/14/2011 7:43 AM EDT 11/14/2011 7:46 AM EDT Narrative Resulting Agency Comment Spec In Lab T Dania ADAIR HEMATOLOGY ORDERABLE S EFREM SANCHEZ documented in this encounter Visit Diagnoses Diagnosis (aortic stenosis)- Primary Aortic valve disorders documented in this encounter Care Teams Vault Cashier Relationship Specialty Start Date End Date Michael Franco MD [address] [place] [address] PCP - General 04/03/10 05/15/21 documented as of this encounter
--- OUTSIDE RECORDS SUMMARY | 2024-01-09 01:27 | XMS_ITS | Encounter Summary ---
Author Organization Formerly [facility] [address] Care Team Providers Care Dip Unit Operator Name Role Phone Michael Franco MD Primary Care Provider [phone] Encounter Details Date Type Department Care Team (Late st Contact Info) Description 11/18/2011 9:50 AM EDT Follow-Up [place] [address] Erinn Munoz MD [facility] [place] [address] Aortic stenosis (Primary Dx) Discharge Disposition: Home [...] Sign Reading Time Taken Comments Blood Pressure 114/78 11/18/2011 9:00 AM EDT Pulse 80 11/18/2011 9:00 AM EDT regul ar Temperature - - Respiratory Rate - - Oxygen Saturation 98% 11/18/2011 9:00 AM EDT at rest Inhaled Oxygen Concentration - - Weight 113.4 kg (250 lb) 11/18/2011 9:00 AM EDT Height 185.4 cm (6' 1) 11/18/2011 9:00 AM EDT Body Mass Index 32.98 11/18/2011 9:00 AM EDT documented in this encounter Progress Notes * Erinn Munoz MD - 11/18/2011 10:30 AM EDT Subjective: Patient ID: Maribell Kauffman Sr. is a 71 y.o. male. HPI 71 yo male with known aortic stenosis with mean gradient of 43, nml EF who has been experiencing exertional chest pain. Cardiac Cath showed no CAD, nml PA pressures and good cardiac output. He has felt well since the cardiac cath, in fact he has been less symptomatic since the cath. He does note difficulty with urinary catheterization during the cardiac cath and has had some persistent dysuria. He has had some groin bruising and tenderness. He is very much ready to proceed with surgery. No Known Allergies Outpatient prescriptions marked as taking for the 11/18/11 encounter (Follow-Up) with ERINN UMNOZ Medication Sig Dispense Refill ??? ibuprofen (ADVIL;MOTRIN) 200 mg tablet Take 200 mg by mouth nightly. ??? aspirin 81 mg EC tablet Take 81 mg by mouth daily. ??? lisinopril (PRINIVIL;ZESTRIL) 10 mg tablet Take 10 mg by mouth daily. ??? MULTI-VITAMIN ORAL Take by mouth daily. ??? simvastatin (ZOCOR) 80 mg tablet Take 80 mg by mouth daily. ??? ERGOCALCIFEROL, VITAMIN D2, [...] 1-2 drinks daily. Still working as a [employer]. Review of Systems Constitutional: Negative. HENT: Negative. Eyes: Negative. Respiratory: Positive for shortness of breath. Cardiovascular: Positive for chest pain. Gastrointestinal: Negative. Genitourinary: Positive for dysuria. Musculoskeletal: Negative. Skin: Negative. Neurological: Negative. Objective: BP 114/78 Pulse 80 Ht 185.4 cm (6' 1) Wt 113.399 kg (250 lb) BMI 32.98 kg/m2 SpO2 98% Physical Exam Constitutional: He is oriented to person, place, and time. He appears well- developed and well-nourished. No distress. HENT: Head: Normocephalic and atraumatic. Mouth/Throat: No oropharyngeal exudate. Eyes: Conjunctivae and EOM are normal. Pupils are equal, round, and reactive to light. Right eye exhibits no discharge. Left eye exhibits no discharge. No scleral icterus. Neck: Normal range of motion. Neck supple. No JVD present. No tracheal deviation present. No thyromegaly present. Cardiovascular: Normal rate, regular rhythm, S1 normal, S2 normal, intact distal pulses and normal pulses. Murmur heard. Crescendo decrescendo systolic murmur is present with a grade of 4/6 Murmur radiates to both carotids Pulmonary/Chest: Effort normal and breath sounds normal. No respiratory distress. He has no wheezes. He has no rales. Abdominal: Soft. Bowel sounds are normal. He exhibits no distension. No tenderness. He has no rebound and no guarding. wellhealed scars RLQ and laparoscopy scars in lower abdomen Musculoskeletal: Normal range of motion. He exhibits no edema and no tenderness. Bruising in right groin cath site Lymphadenopathy: He has no cervical adenopathy. Neurological: He is alert and oriented to person, place, and time. He has normal reflexes. No cranial nerve deficit. Coordination normal. Skin: Skin is warm and dry. No rash noted. Assessment and Plan: 71 yo male with symptomatic severe and normal LV function with no CAD. He meets indications for aortic valve replacement. He would like a tissue valve prosthesis. He understands the procedure and risks which include , bleeding, infection, stroke, heart attack, lung problems, kidney problemsand heart rhythm changes. Consent signed today. He would liek to proceed with surgery CYRUS. I plan for him to get a urine culture today to make sure he does not have a UTI. documented in this encounter Miscellaneous Notes * Miscellaneous - Ronald Vargas - 12/10/2011 11:27 AM EDT documented in this encounter Plan of Treatment Upcoming Encounters Date Type Department Care Team (Late st Contact Info) Description 01/20/2024 9:30 AM EDT Office Visit Hematology/Oncology at [address] [phone] Miguelina Lucia APRN [facility] [place] [address] 02/27/2024 2:15 PM EDT Office Visit Dermatology at [place] [address] [facility] [place] [phone] Eliel Vanessa MD [address], [place] [address] Pending Results Name Type Priority Associated Diagnoses Date /Time EKG 12 Lead ECG Routine Aortic stenosis 11/18/2011 11:12 AM EDT documented as of this encounter Procedures Procedure Name Priority Date/Time Associated Diagnosis Comments @REPLACE AORTIC VALVE, OPEN, W\CPB, W\PROSTHETIC VALVE Routine 11/18/2011 10:33 AM EDT documented in this encounter Results * Hemoglobin A1c (11/18/2011 11:16 AM EDT) Hemoglobin A1c 4.7 4.3 - 6.1 % [facility] Estimated Average Glucose See note mg/dL [facility] [employer] Comment: Estimated Average Glucose not appropriate for patients over 70 years of age. eAG equivalents for HbA1c percentages: HbA1c(%) ?eAG(mg/dL) 6.0 ?126 6.5 ?140 7.0 ?154 7.5 ?169 8.0 ?183 8.5 ?197 9.0 ?212 9.5 ?226 10.0 ? 240 Limitations: The eAG calculation has not been validated on women, individuals below 18 years old and above 70 years old, and individuals with hemoglobinopathies. Additional resources are available on the ADA website: ??http://professional.diabetes.org/glucosecalculator.aspx Reference: Danie ONEILL, Jamila J, Eileen R, et al. ??Translating the A1C assay into estimated average glucose values. ??Diabetes Care 2008:31(8):8286-7499. Blood specimen (specimen) 11/18/2011 11:16 AM EDT 11/18/2011 11:20 AM EDT Narrative Resulting Agency Comment Spec In Lab Erinn Munoz MD CHEMISTRY ORDERABL ES [facility] * (ABNORMAL) Basic Metabolic Panel (non-fasting) (11/18/2011 11:16 AM EDT) [facility] Glucose 98 60 - 199 mg/dL [facility] Comment:Diabetes: >=200 mg/d L plus symptoms Blood Urea Nitrogen 19 10 - 20 mg/dL [facility] Creatinine 0.77(L) 0.80 - 1.50 mg/dL [facility] Comment: Please note that the pediatric reference intervals supplied above were not validated at [facility]. Results from pediatric patients should be interpreted in conjunction to the patient's age, height and muscle mass. Sodium 137 135 - 145 mmol/L [facility] Potassium 4.2 3.5 - 5.0 mmol/L [facility] Comment: Please note: ??Patients with WBC >100,000 may have falsely elevated Potassium levels. ??For accurate Potassium quantification in these patients send serum separator tube (gold top) for subsequent determinations. ??Contact the Clinical Chemistry Laboratory if there are any questions. Chloride 100 98 - 107 mmol/L [facility] Carbon Dioxide 27 22 - 31 mmol/L [facility] Anion Gap 10 5 - 15 mmol/L [facility] Calcium 9.7 8.5 - 10.5 mg/dL [facility] Est [...] J Am Soc Nephrol;6:1963-72. Blood specimen (specimen) 11/18/2011 11:16 AM EDT 11/18/2011 11:20 AM EDT Narrative Resulting Agency Comment Spec In Lab Erinn Munoz MD CHEMISTRY ORDERABL ES Performing Organization Address [facility] Co de Phone Number [facility] * (ABNORMAL) CBC (with Diff) (11/18/2011 11:16 AM EDT) White Blood Cell 5.3 4.0 - 10.0 x10(3)/mc L [facility] Red Blood Cell 4.18(L) 4.63 - 6.08 x10(6)/mc L [facility] Hemoglobin 13.9 13.7 - 17.5 gm/dL [facility] Hematocrit 38.5(L) 40.0 - 51.0 % [facility] Mean Cell Volume 92.1(H) 79.0 - 92.0 fL [facility] Mean Cell Hemoglobin 33.3(H) 25.6 - 32.2 pg [facility] Mean Cell Hemoglobin Concentration 36.1 32.0 - 36.5 gm/dL [facility] Platelet 178 145 - 370 x10(3)/mc L [facility] RDW Standard Deviation 42.4 35.0 - 46.0 fL [facility] RDW coefficient of variation 12.6 10.9 - 14.4 % [facility] Mean Platelet Volume 9.9 9.0 - 12.0 fL [facility] Blood specimen (specimen) 11/18/2011 11:16 AM EDT 11/18/2011 11:20 AM EDT Narrative Resulting Agency Comment Spec In Lab Erinn Munoz MD HEMATOLOGY ORDERAB LES Performing Organization Address [facility]/ZIP Co de Phone Number [facility] [employer] [facility] * Urine culture Clean Catch Urine (11/18/2011 10:59 AM EDT) Urine Culture ? Patient Name: DALY SR, MARIBELL B ?Ordered By: ERINN MUNOZ ? MR#: [id number] ?LOC: ??4V ? /Sex: ?? 2 (71 years), ? Male ? PROCEDURE: Urine Culture ?SOURCE: U CC ? COLLECTED: 11/18/2011 10:59 ? STARTED: 11/18/2011 11:42 ? FINAL REPORT ? Final Report ? Verified: 10:52 ? No growth (Less than 1,000 cfu/ml). ? ____ [facility] Urine specimen obtained by clean catch procedure (specimen) 11/18/2011 10:59 AM EDT 11/18/2011 11:35 AM EDT Narrative Resulting Agency Comment Spec In Lab Erinn Munoz MD MICROBIOLOGY - GEN ERAL ORDERABLES [facility] documented in this encounter Visit Diagnoses Diagnosis Aortic stenosis- Primary Aortic valve disorders documented in this encounter Care Teams Dip Unit Operator Relationship Specialty Start Date End Date Michael Franco MD [address] [place] [address] PCP - General 04/03/10 05/15/21 documented as of this encounter
--- OUTSIDE RECORDS SUMMARY | 2024-01-09 01:27 | XMS_ITS | Encounter Summary ---
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 Name Role Phone Kristian Machuca MD Primary Care Provider [phone] Reason for Referral * (Routine) - Closed by system - unspecified Specialty Diagnoses / Procedures Referred By Contac t Referred To Contact Diagnoses Aortic stenosis Kehinde Ramirez MD [facility] [place] [address] Referral ID Status Reason Start Date Expiration Date Visits Requested Visits Authorized [id number] Closed by system - unspecified Evaluate and Treat 12/09/2011 06/06/2012 1 1 Encounter Details Date Type Department Care Team (Latest Contact Info) Description 12/05/2011 6:01 AM EDT - 12/09/2011 1:05 PM EDT Hospital Encounter Inter[place] [id number] Kehinde Ramirez MD [facility] [place] [address] Aortic stenosis Discharge Disposition: Home with VNA Social History Tobacco Use Types Packs/Day Years [...] Sign Reading Time Taken Comments Blood Pressure 106/57 12/09/2011 7:43 AM EDT Pulse 59 12/09/2011 7:43 AM EDT Temperature 36.7 ??C (98.1 ??F) 12/09/2011 7:43 AM ED T Respiratory Rate 16 12/09/2011 7:43 AM EDT Oxygen Saturation 97% 12/09/2011 7:43 AM EDT Inhaled Oxygen Concentration - - Weight 112.5 kg (248 lb 0.3 oz) 12/09/2011 6:34 AM EDT Height 185.4 cm (6' 1) 12/05/2011 6:18 AM EDT Body Mass Index 32.72 12/05/2011 6:18 AM EDT documented in this encounter Discharge Instructions * Patient Instructions* Goran Nguyen PA - 12/09/2011 10:26 AM EDT Discharge Instructions: Call your doctor if: You have a fever of greater than 101 degrees, shaking chills, if you develop redness or drainage from your incision sites, or if you have questions. Please call your surgeon's office if you have any discharge or drainage from your chest incision. Your surgeon, Dr. Kehinde Ramirez and/or the Cardiac Surgery Physician Purification Operator Team may be reached at . Antibiotic prophylaxis: You will need to take antibiotics prior to many invasive tests and treatments, such as dental cleaning, which should be done every 6 months. Your primary care physician or your dentist can prescribe this medication. Please refer to the card with the [employer] Association Guidelines for more information. You have been provided with 3 copies of this card. Keep one for your self. Give one to your primary care physician and one to your dentist. Please refer to the [employer] Guidelines for more information. Activity level: Do not lift more than 10 pounds for 4 weeks. Walk three times a day. You should continue to increase your walks by 1-2 minutes each day, as per your postoperative Cardiac Surgery Guidelines. When you are walking 20 minutes at a time you can cut back to two walks a day. It is expected that you will be walking 20-30 minutes twice a day within 3-4 weeks after discharge to home. Rest between activities and after meals. Use common sense, don't exhaust yourself. Biking: You may use a stationary bicycle whenever you are comfortable enough to permit this. Tighten the resistance slightly. Increase the amount of time on the bicycle as you would do for your walks, a minute or two each day. No biking outside until after your return appointment with Dr. Kehinde Ramirez. You may use a [place] or treadmill but avoid any pulling motion with the arms. Home activities: You may do light housework, e.g. dusting, setting the table, washing dishes, preparing a meal. Light carpentry and gardening are allowed. Avoid trying to open tight jars and stuck windows. No vacuuming, mopping, raking, shoveling, digging or hoeing until after your return visit with the surgeon. Sexual activity: You may engage in sexual activity when you feel ready. Use a position that protects your sternum (breastbone). Do not have your partner lie on your chest. Stairs: There are no restrictions on stair climbing. Use common sense. Don't exhaust yourself. Activities outside the home: After the first week home you may go out to dinner, visit friends, go to a movie, go to orthodox, etc. Heavy activities: No hunting, skiing, jogging, snow shoveling, snowmobiling, lawn mowing, swimming,golf or tennis until after your return appointment with the surgeon. Do not ride motorcycles, ATV'stractors or horses. Avoid the use of a rifle with kickback against the shoulder for six months. Sleep: Try to establish normal sleep patterns. Long naps during the day may make it hard for you tosleep at night. Use the pain medication at bedtime for the first week at home. If you have nightmares, contact us. Some medications make this worse and these can be changed. Smoking: It is very important that you not smoke after surgery. Smoking cessation education was provided. If you need further assistance with this please call and you will be referred to a smoking cessation specialist. Medications: Take only those medications listed on your discharge information. Keep your pain undercontrol so you can be active, do your coughing and breathing exercises and sleep. Contact us if thepain medication isn't working for you. Do not take any herbal preparations until after you return to see the surgeon. Diet: You should follow a regular diet until your appetite returns to normal. At that point in timeyou should resume a low fat, low cholesterol, [place] Heart Association Diet. Driving: No driving for 4 weeks. Avoid long trips if possible. If you must go on a long trip, stop the car and walk every hour. Shower/Bath: You may shower daily. No baths, soaking, or swimming until cleared by your surgeon. Wound care: Wash your incisions daily with antibacterial soap and rinse well, pat dry. Assess for any signs of infection such as increased redness, pain, warmth or drainage. Please call your surgeon's office if you have any discharge or drainage from your chest incision. If there is a lot of swelling, apply estuardo wraps during the day and remove at bedtime. Elevate your legs when you are sitting. Follow up appointments: You should arrange to see your primary care physician, KRISTIAN MACHUCA MD, intwo weeks. You will return to clinic to see Dr. Kehinde Ramirez in 4 weeks and will have a CXR,EKG, and ECHO at that time. A letter will be mailed to you with your appointment information. Cardiac Rehabilitation: Maribell Kauffman Sr. was seen regarding participation in outpatient Phase 2 Cardiac Rehabilitation at [facility]. A referral will be sent to this program. The patient was given contact information and should expect to be contacted by the program within 1-2 weeks after discharge from [facility]. Home oxygen therapy: N/A documented in this encounter Medications at Time [...] as of this encounter Progress Notes * Nuno Thomas, RN - 12/09/2011 1:00 PM EDT IV and quality assurance monitor body removed. AVS and discharge summary reviewed with patient by MANA Nguyen. Narcotic Rx in hand. Ambulated patient to [facility]. Patient transported to home via private car. Report called to visiting nurse * Girma Michael RN - 12/09/2011 10:52 AM EDT Office of Care Management (OCM) / Clinical Wood Finisher Apprentice (CRC)/ Initial Assessment Discussed patient with Provider Team and in multidisciplinary discharge-planning rounds. Reviewed record and interviewed patient's Introduced/reviewed CRC role and services accepted. REASON for HOSPITALIZATION: AVR PMH/PSH: See H&P Note PREVIOUS FUNCTIONAL STATUS: Independent at home. Drives, Preforms own ADLS CURRENT FUNCTIONAL STATUS:Sitting in reclining chair. Pleasant, calm. SOCIAL / FAMILY SUPPORTS Lives with his Lauren ADVANCE DIRECTIVES: Copy in [facility] INSURANCE COVERAGE / FINANCIAL ISSUES: Nat. PATTI Kevin. Part A only Medicare. States no financial concerns at this time CURRENT HOME/COMMUNITY SERVICES/EQUIPMENT: DME:None Home Health Agency:List provided. Pt request referral be sent to [facility]. PHONE: [phone] FAX: [phone] . Referral sent via resource group two. Other: SIDE PANEL HANGER REFERRAL: Notified N/A, SIDE PANEL HANGER - Support/Financial/Medication Assistance; See SIDE PANEL HANGER notes for further needs. PRIMARY CARE PHYSICIAN: KRISTIAN MACHUCA MD [address] / [place] [address] POTENTIAL DISCHARGE NEEDS: Home VN for RN Care TRANSPORTATION @ D/C: will provide ride at time of d/c PLAN: CRC will continue to monitor progress, follow for continuity of care and assist with discharge planning while hospitalized . * Nisa Young RN - 12/09/2011 10:03 AM EDT [facility] CARDIAC REHABILITATION Maribell Kauffman Sr. was seen today regarding participation in outpatient Phase 2 Cardiac Rehabilitation at [facility] . A referral will be sent to this program. The patient was given contact information and should expect to be contacted by the program within 1-2 weeks after discharge from [facility]. * Goran Nguyen PA - 12/09/2011 9:50 AM EDT Cardiac Surgery Progress Note: ID: [id number] 71/M POD #4 tissue AVR Subjective and 24 Hour Events: -feels good, no overnight events Temperature Temp: 36.7 ??C (98.1 ??F) Temp: [36.7 ??C (98.1 ??F)-37.4 ??C (99.3 ??F)] Heart Rate Heart Rate: 59 Heart Rate: [59-75] Blood Pressure BP: 106/57 mmHg BP: (102-129)/(57-69) Respiratory Rate Resp: 16 Resp: [16-18] SpO2 SpO2: 97 % SpO2: [93 %-99 %] I/O last 3 completed shifts: In: 1280 [P.O.:1280] Out: 3700 [Urine:3700] Admit weight 109.60 kg Current Weight Weight - Scale: 112.5 kg (248 lb 0.3 oz) Patient Weight in the past 168 hrs: Weight 12/09/11 0634 112.5 kg (248 lb 0.3 oz) 12/08/11 0549 113.4 kg (250 lb) 12/07/11 0614 114.6 kg (252 lb 10.4 oz) 12/05/11 0618 109.6 kg (241 lb 10 oz) Physical exam: General: in chair, good affect Lungs: bronchial breath sounds at right base, otherwise clear Heart: regularly regular rate and rhythm, s1/s2 present, no murmurs/rubs/gallops Abdomen: nondistended, normoactive bowel sounds Neuro: no focal deficits Ext: no edema Incisions: healing well Tubes/Lines/Drains: PIV Recent Labs Basename 12/08/11 05 ??? WBC 9.5 ??? HGB 10.3* ??? HCT 30.0* ??? PLATELET 97* ??? PT -- ??? INR -- ??? PTT -- ??? FIBRINOGEN -- Recent Labs Basename 12/09/11 0417 12/08/1154512/07/11 045 ??? NA -- 138 -- ??? K 3.5 4.5 5.2* ??? CL -- 99 -- ??? CO2 -- 32* -- ??? BUN -- 23* -- ??? CREATININE -- 0.62* -- ??? GLUCOSE -- 119 -- ??? CALCIUM -- 9.1 -- ??? MAGNESIUM -- -- -- ??? PHOS -- -- -- Assessment/Plan: Medically optimized for discharge home today. * Maribell Romano MD - 12/08/2011 10:18 AM EDT Cardiac Surgery Progress Note: ID: [id number] 71 year old gentleman POD #3 S/P tissue AVR. 24 Hour Events: -remained in SR o/n, few PVCs -rate controlled -transient left hemispheric disturbances that resolved sponateously S: Better this AM, pain controlled, more flatus, no BM. No n/v/shob. On RA O: Temperature Temp: 37.2 ??C (99 ??F) Temp: [36.6 ??C (97.9 ??F)-37.8 ??C (100 ??F)] Heart Rate Heart Rate: 69 Heart Rate: [64-81] Blood Pressure BP: 119/68 mmHg BP: (99-150)/(52-80) Respiratory Rate Resp: 18 Resp: [18-20] SpO2 SpO2: 99 % SpO2: [91 %-99 %] I/O last 3 completed shifts: In: 2300 [P.O.:2300] Out: 3850 [Urine:3850] Admit weight 109.60 kg Current Weight Weight - Scale: 113.4 kg (250 lb) Patient Weight in the past 168 hrs: Weight 12/08/11 0549 113.4 kg (250 lb) 12/07/11 0614 114.6 kg (252 lb 10.4 oz) 12/05/11 0618 109.6 kg (241 lb 10 oz) Physical exam: General: Sitting up in chair in NAD. Neuro: A/O x 3, NFD, visual salas intact. Lungs: CTAB. Heart: RRR, Abdomen: Soft, NT, ND, +BS. Ext: Warm and dry. Incisions: Sternotomy c/d/i Tubes/Lines/Drains: PW, f LABS: Recent Labs Basename 12/08/11 0546 12/06/11 0400 12/05/11 1045 ??? WBC 9.5 17.0* 17.3* ??? HGB 10.3* 12.1* 9.9* ??? HCT 30.0* 34.7* 27.9* ??? PLATELET 97* 159 136* ??? PT -- -- 17.8* ??? INR -- -- 1.4* ??? PTT -- -- 29 ??? FIBRINOGEN -- -- 273 Recent Labs Basename 12/08/11 0546 12/07/11 0458 12/06/11 0400 ??? NA 138 -- -- ??? K 4.5 5.2* 4.5 ??? CL 99 -- -- ??? CO2 32* -- -- ??? BUN 23* -- 16 ??? CREATININE 0.62* -- 0.57* ??? GLUCOSE 119 -- -- ??? CALCIUM 9.1 -- -- ??? MAGNESIUM -- -- -- ??? PHOS -- -- -- Studies 12/08/2011 AP/L CXR -lungs inflated, no visible PTX, minimal effusions Assessment/Plan: 71 year old gentleman POD #3 S/P tissue AVR. -Pathway. Neuro: Intact. Tylenol and oxycodone pain medication. Visual disturbances most likely due to eitherslight orthostatic hypotension vs. Post operative fluid status. Will continue to monitor, if persistent, will consider imaging. Will maintain higher SBP and continue with current diuresis regimen. CV: HDS. metoprolol 25 mg BID w Amio 400 mg PO daily. CW Zocor 20 mg QHS-dose decreased due to amiodarone use. Will keep current metoprolol dose to minimize hypotension. Resp: CW IS, cough, and deep breathing. GI: [facility] diet RBOs and Nexium 40 mg for prophylaxis. : voiding w/o issues. Renal: lasix BID, hold K and follow daily. ID: Afebrile. . Heme: ASA 81 mg daily. Endo: wnl Dispo: Stable. Pathway. ICCU. Olu Thomason MD PGY2 I have seen and examined Mr. Kauffman and agree with the history and physical findings documented above. He had brief transient blurred vision this AM that has completely resolved. We will follow this and work this up further if needed, but he is currently asymptomatic. Otherwise he is on pathway. CXRand labs OK this AM. Pacing wires now out. Likely d/c home early this week. * Wiley Laughlin RN - 12/08/2011 2:50 AM EDT Patient on the pathway and doing great. Pain controlled and activity increased. Appetite better continue to monitor. * Abby Mauricio LD - 12/07/2011 1:14 PM EDT Nutrition Initial Evaluation Note: S: Per pt: My appetite is picking up I had eggs, a muffin, coffee, and juice for breakfast. Appetite: Good per pt Chewing/Swallowing:No problems per pt N/V:No problems per pt O: Dx: s/p AVR Past Medical History Diagnosis Date ??? Prostate cancer ??? Hypertension ??? Hypercholesteremia Past Surgical History Procedure Date ??? Prostatectomy 2007 ??? Appendectomy ??? Tonsillectomy as a child ??? Replace aort valv, prosth valv 12/05/2011 @REPLACE AORTIC VALVE, W\CPB, W\PROSTHETIC VALVE performed by KEHINDE RAMIREZ at [facility] OR Diet:Regular Height:185.4 cm Admit Weight: 109.6 kg BMI:31.9 Labs: Ha1c: 4.7 (11/18/11), K+: 5.2, Glucose: 132 Medications: Multivitamin, Insulin, KCL, Senna-docusate A: RD consulted for high protein diet education. Pt is s/p AVR repair. He reports that his appetetis is picking up. We reviewed good sources of protein in the diet for healing. Pt verbalized a goodunderstanding. He typically consumes meat and dairy products on a daily basis. Provided pt with handout with protein containing foods and about of protein. Offered pt high protein snacks. He is agreeable to niuean yogurt BID. Of note, Pt is prescribed insulin. He has no PMH of DM and last Ha1c was 4.7. Blood sugars seem to be coming down. Pt had a high K+ this morning. Pt received KCL last night. May need to hold of on additional K+ supplementation. Recommend changing pt diet to [facility] (Heart Healthy) given dx and PMH of HTN and high cholesterol. P: 1. High protein diet education and handouts provided. 2. Dietary to provide High protein niuean yogurt BID. 3. Recommend changing pt diet to [facility] (Heart Healthy). 4. Nutrition to follow in one week, unless consulted sooner. * Maribell Romano MD - 12/07/2011 11:02 AM EDT Cardiac Surgery Progress Note: ID: [id number] 71 year old gentleman POD #2 S/P tissue AVR. 24 Hour Events: -transferred to ICCU -occasional PVCs overnight, SR -pain controlled S: Better this AM, pain controlled, minimal flatus, no BM. No n/v/shob. On RA O: Temperature Temp: 36.9 ??C (98.4 ??F) Temp: [36.5 ??C (97.7 ??F)-37.5 ??C (99.5 ??F)] Heart Rate Heart Rate: 74 Heart Rate: [74-89] Blood Pressure BP: 117/70 mmHg BP: (111-149)/(63-72) Respiratory Rate Resp: 18 Resp: [17-26] SpO2 SpO2: 93 % SpO2: [91 %-100 %] I/O last 3 completed shifts: In: 2202 [P.O.:1150; I.V.:1052] Out: 3445 [Urine:3275; Other:170] Admit weight 109.60 kg Current Weight Weight - Scale: 114.6 kg (252 lb 10.4 oz) Patient Weight in the past 168 hrs: Weight 12/07/11 0614 114.6 kg (252 lb 10.4 oz) 12/05/11 0618 109.6 kg (241 lb 10 oz) Physical exam: General: Sitting up in chair in NAD. Neuro: A/O x 3 Lungs: CTAB. Heart: RRR, Abdomen: Soft, NT, ND, +BS. Ext: Warm and dry. Incisions: Sternotomy c/d/i Tubes/Lines/Drains: PW, beyer in place, clear urine LABS: Recent Labs Basename 12/06/11 0400 12/05/11 1045 12/05/11 0935 ??? WBC 17.0* 17.3* -- ??? HGB 12.1* 9.9* -- ??? HCT 34.7* 27.9* -- ??? PLATELET 159 136* 169 ??? PT -- 17.8* -- ??? INR -- 1.4* -- ??? PTT -- 29 -- ??? FIBRINOGEN -- 273 283 Recent Labs Basename 12/07/11 0458 12/06/11 0400 ??? NA -- -- ??? K 5.2* 4.5 ??? CL -- -- ??? CO2 -- -- ??? BUN -- 16 ??? CREATININE -- 0.57* ??? GLUCOSE -- -- ??? CALCIUM -- -- ??? MAGNESIUM -- -- ??? PHOS -- -- Assessment/Plan: 71 year old gentleman POD #2 S/P tissue AVR. -Pathway. Neuro: Intact. Tylenol and oxycodone pain medication. CV: HDS. metoprolol 25 mg BID w Amio 400 mg PO daily. CW Zocor 20 mg QHS-dose decreased due to amiodarone use. Resp: CW IS, cough, and deep breathing. GI: [facility] diet RBOs and Nexium 40 mg for prophylaxis. : d/c beyer Renal: lasix BID, hold K given K of 5.2 this AM. ID: Afebrile. . Heme: ASA 81 mg daily. Endo: d/c insulin gtt Dispo: Stable. Pathway. ICCU. Olu Thomason MD PGY2 I have seen and examined Mr. Kauffman and agree with the history and physical findings documented above. He is pathway care so far. Plan is to ambulate, diurese and remove beyer, and d/c pacing wires Friday. * Wiley Laughlin RN - 12/07/2011 6:11 AM EDT Patient doing real well on the pathway. Pain controlled and up in room and ambulating with stand byassist. Looking forward to high activity and rehabbing. Wires and Beyer in place no issues. Insulindrip off with glucose checks. Continuing to monitor. Wanting to shower in morning. * Nuno Thomas RN - 12/06/2011 5:55 PM EDT Patient settled into Rm. 436 from the [facility]. Delton patient to room, call garcia and pain scale. Patient resting in bed, at the bed side. Currently 05/21 for pain. Received tylenol at 1700. * Lupillo Barbosa III, PA - 12/06/2011 11:18 AM EDT Cardiac Surgery Progress Note: ID: [id number] 71 year old gentleman POD #1 S/P tissue AVR. 24 Hour Events: -Returned from OR. -Extubated. -Manuel to off. S: Restless night. Pain is well controlled this morning on current regimen- minimal currently. SOB with CTs, but non-labored. Tolerating ice chips. Minimal flatus. OOB to chair. O: Temperature Temp: 37 ??C (98.6 ??F) Temp: [36.6 ??C (97.9 ??F)-37 ??C (98.6 ??F)] Heart Rate Heart Rate: 77 Heart Rate: [67-77] Blood Pressure BP: 116/85 mmHg (Right Arm) BP: -- Respiratory Rate Resp: 18 Resp: [10-24] SpO2 SpO2: 95 % SpO2: [95 %-100 %] Hemodynamics: CVP 8 Drips: Amio 0.5, fent 50, insulin 1.5 I/O last 3 completed shifts: In: 3539.4 [P.O.:190; I.V.:3349.4] Out: 1770 [Urine:1540; Other:230] I/O this shift: In: 312.8 [P.O.:120; I.V.:192.8] Out: 255 [Urine:195; Other:60] I-2.92 L O-1.62 L (1.34 L UO, [address]) Net positive 1.30 L Admit weight 109.60 kg Current Weight Weight - Scale: 109.6 kg (241 lb 10 oz) Patient Weight in the past 168 hrs: Weight 12/05/11 0618 109.6 kg (241 lb 10 oz) Physical exam: General: Sitting up in chair in NAD. Neuro: Awake and alert without gross FND. Lungs: Present bilaterally without W/R/C. CTs SSD without air leak. Heart: RR. S1 S2. No M/R. SR without ectopy. Abdomen: Soft, NT, ND, +BS. Ext: Warm and dry. Incisions: Sternotomy C/D dressed. Tubes/Lines/Drains: Cordis, A-line, TPW, CTs, beyer all in place. LABS: Recent Labs Basename 12/06/11 0400 12/05/11 1045 12/05/11 0935 ??? WBC 17.0* 17.3* -- ??? HGB 12.1* 9.9* -- ??? HCT 34.7* 27.9* -- ??? PLATELET 159 136* 169 ??? PT -- 17.8* -- ??? INR -- 1.4* -- ??? PTT -- 29 -- ??? FIBRINOGEN -- 273 283 Recent Labs Basename 12/06/11 0400 ??? NA -- ??? K 4.5 ??? CL -- ??? CO2 -- ??? BUN 16 ??? CREATININE 0.57* ??? GLUCOSE -- ??? CALCIUM -- ??? MAGNESIUM -- ??? PHOS -- ABG (Arterial Blood Gas) Lab Results Component Value Date pH Art 7.35* 12/05/2011 pO2 Art 116* 12/05/2011 pCO2 Art 40 12/05/2011 Assessment/Plan: 71 year old gentleman POD #1 S/P tissue AVR. -Pathway. Neuro: Intact. Tylenol and oxycodone pain medication. CV: HDS. Off Manuel. Start metoprolol 12.5 mg BID with parameters. DC Amio drip and start 400 mg PO daily. CW Zocor 20 mg QHS-dose decreased due to amiodarone use. Resp: 97% NC. Removed CTs. CW IS, cough, and deep breathing. GI: ADAT. RBOs and Nexium 40 mg for prophylaxis. : Continue with beyer for accurate I/Os with anticipation to remove tomorrow. Renal: Good UOP. BUN 16/Cr 0.91. K+ 4.1. Start lasix BID with K+ supplementation. ID: Afebrile. Complete perioperative ABX. Heme: H/H/Platelets stable. Start ASA 81 mg daily. Endo: CW insulin protocol with plan to DC tomorrow as is not a diabetic. Dispo: Stable. Pathway. Transfer to ICCU. DW Attending Surgeon on rounds. Signed: Lupillo Barbosa III, MS, PADallas [facility] Section of Cardiothoracic Surgery Date: 12/06/11. documented in this encounter H&P Notes * Kehinde Ramirez MD - 12/05/2011 7:06 AM EDT I have seen and examined the patient and we are ready to proceed. Source Note - Kehinde Ramirez MD - 12/05/2011 7:05 AM EDT Subjective: Patient ID: Maribell Kauffman [...] taking for the 11/18/11 encounter (Follow-Up) with KEHINDE RAMIREZ Medication Sig Dispense Refill ??? ibuprofen (ADVIL;MOTRIN) [...] 1-2 drinks daily. 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 Review of Systems Constitutional: Negative. [...] sure he does not have a UTI. * Kehinde Ramirez MD - 12/05/2011 7:05 AM EDT Subjective: Patient ID: Maribell Kauffman [...] taking for the 11/18/11 encounter (Follow-Up) with KEHINDE RAMIREZ Medication Sig Dispense Refill ??? ibuprofen (ADVIL;MOTRIN) [...] 1-2 drinks daily. 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 Review of Systems Constitutional: Negative. [...] have a UTI. documented in this encounter Procedure Notes * Provider, Scanning - 12/10/2011 9:51 AM EDTAssociated Order(s): SCAN DOC: SCHEME TECHNICIAN * Provider, Scanning - 12/10/2011 9:51 AM EDTAssociated Order(s): SCAN DOC: IMPLANTABLE DEVICES documented in this encounter Nursing Notes * Rochelle Wall RN - 12/05/2011 8:58 AM EDT External zoll pads applied to patient after transferring to OR bed. Intraoperative medications: Nuknit - to sternal edges at time of sternotomy. Vancomycin 1 gram / 1 Floseal / 1 ml NaCl - vancopaste - to sternal edges at time of reapproximation. Family updated throughout procedure. documented in this encounter Miscellaneous Notes * Op Note - Kehinde Ramirez MD - 12/11/2011 4:03 PM EDT Patient Name: Maribell Kauffman Sr. : [id number] MR#: [id number] Case Date: 12/05/2011 Surgeon: Surgeon(s) and Role: * KEHINDE RAMIREZ MD - Primary * MANA ZHENG Preoperative diagnosis: aortic stenosis Postoperative diagnosis: Aortic Stenosis Procedure(s): AVR 27 TRIFECTA PERICARDIAL, ANDREINA Indications for Procedure: Mr. Kauffman is a 71-year-old gentleman who has developed symptomatic severe aortic stenosis. Cardiac catheterization shows no concomitant coronary artery disease. He is taken to the Operating Room for elective aortic valve replacement. Findings at the Time of Surgery: The aortic valve was three-leaflet in nature with very heavy leaflet and annular calcification. Valve was replaced using a 27-Trifecta pericardial valve placed with 16 mattress sutures. The patient weaned easily from cardiopulmonary bypass. ANDREINA showed normal left ventricular function and no nikki-valve leak. There was 1+ to 2+ mitral regurgitation, both pre and postop by echocardiogram. Conduct of Cardiopulmonary Bypass: Routine aortic and venous cannulation was accomplished. Antegrade and retrograde cardioplegia was utilized with cold induction of arrest. Body temperature was maintained at normothermia. Total pump time was 102 minutes. Crossclamp time was 77 minutes. Technical Procedure Used: The patient was placed on the table in a supine position, and adequate general endotracheal anesthesia was induced. Appropriate monitoring lines were placed, and the patient was prepped and draped in the usual fashion. Median sternotomy was performed. Pericardium was opened in the midline. Heparin was administered to the patient. Routine aortic and venous cannulation was accomplished. Antegrade and retrograde cardioplegia cannulas were placed within the heart, and cardiopulmonary bypass was initiated. The ascending aorta was crossclamped. Antegrade and retrograde cardioplegia was instilled to achieve arrest of the heart. Slush was used for topical cooling of the heart. The ascending aorta was opened using an oblique incision, and the valve was examined. Valve leaflets were excised, and a rongeur was used to debride a significant amount of calcium from the annulus. The valve was sized to a 27-Trifecta pericardial valve. Sixteen pledgeted horizontal mattress sutures were placed circumferentially in the aortic annulus with pledgets on the ventricular side. These were brought up through the sewing ring of the valve, which was lowered into position and secured in place. There was an excellent seat of the valve in the annulus. The aortotomy was then closed in two layers using running 5-0 Prolene suture. Hotshot was then administered first retrograde then antegrade. Then warm blood was delivered sequentially antegrade and retrograde until the heart began to beat, and aortic crossclamp was removed. Epicardial pacing wires were placed in the right atrium and right ventricle and brought out through the anterior abdominal wall. Two chest tubes were placed within the chest. The lungs were re-inflated, and ANDREINA was used to guide deairing of the heart. When adequate deairing had been accomplished, antegrade and retrograde cardioplegia cannulas were removed from the heart. Sites were oversewn with 5-0 Prolene suture. The patient was then easily weaned from cardiopulmonary bypass. ANDREINA showed normal ventricular function, no nikki-valve leak, and unchanged 1+ to 2+ mitral regurgitation. Protamine was administered for reversal of heparin effect; and at the conclusion of protamine administration, the aortic cannula was removed. Site was oversewn with 5-0 Prolene suture. Pericardium was inspected for bleeding. When hemostasis was assured, chest wall retractor was removed; and the chest wall was inspected for bleeding. When hemostasis was assured, sternum was approximated using five surgical-steel cables. Subcutaneous tissues were irrigated and closed using running 0 Vicryl suture. Skin was closed using running subcuticular stitch of 4-0 Monocryl. The patient tolerated the procedure and was transported to the Cardiac Surgical Intensive Care Unit in stable condition. Needle and sponge counts were reported correct at the conclusion of the procedure. * Miscellaneous - Provider, Scanning - 12/10/2011 9:51 AM EDT * Miscellaneous - Provider, Scanning - 12/10/2011 9:51 AM EDT * Miscellaneous - Provider, Scanning - 12/10/2011 9:51 AM EDT * Miscellaneous - Provider, Scanning - 12/10/2011 9:51 AM EDT * Miscellaneous - Provider, Scanning - 12/10/2011 9:51 AM EDT * Miscellaneous - Provider, Scanning - 12/10/2011 9:51 AM EDT * Plan of Care - Nuno Thomas RN - 12/09/2011 9:37 AM EDT Problem: Cardiac Surgery (Adult) Intervention: Fluid Management Discussed with Patient and his spouse about the importance of monitoring weight daily and keeping the sodium intake low. Able to verbalize understanding. Cardiac Surgery packet in hand with referral to cardiac rehab.Patient to be d/c today * Initial Assessments - Tay Vivar, PT - 12/08/2011 10:44 AM EDT Physical Therapy Evaluation Cardiac Surgery Patient Profile: Patient is a 71 y.o. male of Kehinde Herbert MD, admitted on 12/05/2011 with history of . Patient underwent AVR on 12/05/11. Post-op he was extubated overnight the night of surgery and transferred to on 12/06/11. Precautions: sternal (no lifting >7-10 lbs.; no pushing or pulling with UE's; no excessive cheststretching). PMH: Past Medical History Diagnosis Date ??? Prostate cancer ??? Hypertension ??? Hypercholesteremia Lap. Prostatectomy for prostate cancer S/p XRT and hormonal TX for prostate cancer Kidney stones Past Surgical History Procedure Date ??? Prostatectomy 2006 ??? Appendectomy ??? Tonsillectomy as a child ??? Replace aort valv, prosth valv 12/05/2011 @REPLACE AORTIC VALVE, W\CPB, W\PROSTHETIC VALVE performed by KEHINDE RAMIREZ at [facility] MAIN OR Social History: Patient lives with their spouse in one level home. Stairs: 2 with a rail to enter. 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 Equipment at home: crutches, and grab bars in the shower and by the toilet. Subjective: I feel pretty good. Objective: PT referral has been received, chart reviewed, Pt seen this morning on for 39 minutes for PT evaluation and pt related discussion. His was present for treatment session. Total time spent with patient: 39 minutes-eval Total timed interventions: 0 minutes Pain: less than a 1/4 out of 10. Pt reports pain has been controled. Not much. Vital Signs/Cardiopulmonary Status: SpO2: 92% after walking HR: 87 after walking BP: see RN flowsheets Incentive Spirometer: Volume: 1250 ml Quality: good Mental Status/Behavior: alert, oriented to person, place, and time and very pleasant Skin: sternal incision dry, but some scabs. IV LUE. Sensation: normal ROM: WFL Strength: WFL Bed Mobility: Supine <-> Sit to/from a flat bed with extra pillows: independent after instruction; occ reminders to maintain precautions. comfortable overseeing at home. Transfers: Sit to Stand: independent and did well with precautions Stand to Sit: independent and did well with precautions. Gait: Distance: 250 ft Device used: no assistive device Level of assist: independent Gait pattern: steady gait pattern Stairs: Up and down 4 stairs with a rail for balance only independently. Balance: good Education: Pt and his were educated on post-op sternal precautions, use of incentive spirometer, the importance of deep breathing, and post-op cardiac exercises. Pt performed 5-7 reps of the following exercises today without issues: head nod, head twist, shoulder flexion, knee extension, ankle circles, and ankle pumps. Pt was given a written list of exercisesand precautions. Pt's status, treatment, and mobility recommendations were discussed with the nursing staff. Assessment: Pt is a very pleasant 71 year old man who is now POD# 3 s/p AVR. He is mobilizing well,and is independent and safe mobility, and he is safe to return home with family support when he is medically stable. His is comfortable overseeing his mobility and cueing him to maintain his sternal precautions if needed; However he did well after training and education today. Expect no further inpt PT will be needed, pt did well with mobility today, but will monitor his status while he remains in-house. Pt has good rehab potential. He should follow up with his MD and cardiac rehab on an outpt basis as appropriate. Equipment needs: none Goals: The below goals were MET today. 1. Pt will ambulate independently 200ft ft. without an assistive device to allow for a safe d/c. 2. Pt will perform all post op cardiac surgery exercises adequately. 3. Pt will demonstrate independence with incentive spirometer and/or threshold PEP to promote lung function. 4. Pt will demonstrate understanding of sternal precautions to allow for a safe d/c. 5. Pt will be able to transfer sit <-> stand independently while maintaining sternal precautions to allow for a safe d/c. 6. Pt will be able to go supine <-> sit independently while maintaining sternal precautions to allow for a safe d/c. 7. Pt will be able to go up and down 3 stairs using a rail for balance only with stand-by assistance to prepare for a safe d/c. Treatment Plan: Pt seen today for patient and family/caregiver education and training on sternal precautions, functional mobility, gait, stairs, exercise, safety awareness, endurance & energy conservation, and d/c planning. Tentative D/C Plan: Home with support/assistance Informed Consent: Pt understands and agrees with PT plan, goals, and tentative discharge plan: Yes TAY VIVAR, PT Pager: [phone] Physical Therapy Rehabilitation Department * Plan of Care - Hossein Fernandez RN - 12/06/2011 4:52 PM EDT Problem: Skin Integrity Impairment, Risk/Actual (Adult, Obstetric) Goal: Skin Integrity Impairment, Risk/Actual: Skin Integrity/Wound Healing Outcome: Absent and monitoring Sternal incision dry and intact. Otherwise, no skin breakdown. Mepilex border in place. * Plan of Care - Anabel العلي RN - 12/06/2011 1:48 AM EDT Problem: Pain, Acute (Adult, Obstetric) Goal: Acute Pain: Acceptable Pain Control/Comfort Level - Pain, Acute (Adult, Obstetric) Outcome: Present (see interventions, notes) titrating fentanyl, and gibing boluses PRN with good effect. * Plan of Care - Anabel العلي RN - 12/06/2011 1:43 AM EDT Problem: Cardiac Surgery (Adult) Goal: Prevent/Manage Potential Problems Based on my scope of practice, I assessed for signs and symptoms of potential problems that could be present as documented. Outcome: Present (see interventions, notes) Pt on amiodarone gtt, remains in NSR * OR Attestation - Kehinde Ramirez MD - 12/05/2011 11:41 AM EDT Attestation: Case Date: 12/05/2011 I performed this procedure without the involvement of a resident. KEHINDE RAMIREZ MD 12/05/2011 * Brief Op Note - Kehinde Ramirez MD - 12/05/2011 11:37 AM EDT Brief Operative Note Patient Name: Maribell Kauffman . : [id number] MR#: [id number] Case Date: 12/05/2011 Surgeon: Surgeon(s) and Role: * KEHINDE RAMIREZ MD - Primary * MANA ZHENG Preoperative diagnosis: aortic stenosis Postoperative diagnosis: Aortic Stenosis Procedure(s): AVR 27 TRIFECTA PERICARDIAL, ANDREINA Anesthesia: General Estimated Blood Loss: CELL SAVER Drains: 2 CHEST TUBES, 2A-2V WIRES Disposition: [facility] Condition: STABLE CONDUCT OF CARDIOPULMONARY BYPASS: Venous Cannula 28 THREE STAGE Arterial cannula 20 EOPA Temperature management: NORMOTHERMIC TPT 102 min/CCT 77 min FINDINGS: THREE LEAFLET AORTIC VALVE WITH HEAVY CALCIFICATION. 27 TRIFECTA VALVE PLACED WITH 16 SUTURES. WEANED EASILY FROM CPB. ANDREINA--NORMAL LV FUNCTION, NO PERIVALVE LEAK, 1-2+ MR UNCHANGED. * Discharge Summary - Goran Nguyen PA - 12/05/2011 10:06 AM EDT Primary diagnoses: Aortic stenosis Disposition: Patient discharged to home Condition at Discharge: Stable Patient Active Problem List Diagnoses Code ??? Prostate cancer 185A ??? ED (erectile dysfunction) 607.84R ??? Aortic stenosis 424.1Y Past Medical History Diagnosis Date ??? Prostate cancer ??? Hypertension ??? Hypercholesteremia Primary Care Physician: KRISTIAN MACHUCA MD Prior To Admission Medications: Prescriptions prior to admission Medication Sig Dispense Refill ??? ibuprofen (ADVIL;MOTRIN) 200 mg tablet Take 200 mg by mouth nightly. ??? chlorhexidine (HIBICLENS) 4 % external liquid Apply topically daily as needed. Shower from headto toe with Chlorhexidine the night before surgery 120 mL 0 ??? aspirin 81 mg EC tablet [...] ??? GLUCOSAMINE HCL/CHONDRO EVANS A (GLUCOSAMINE-CHONDROITIN ORAL) Allergies: No Known Allergies History of Presentation: Maribell Kauffman was referred to Dr. Kehinde Ramirez by Dr. Lisa for evaulation of aortic stenosis. He is a 71/M who had been followed for progressive aortic stenosis. Last April he was scheduled to undergo knee surgery and stress test was done. It showed no ischemia and ECHO showed a mean gradient of 35 mmHg. After successful knee surgery he noted increased exertional chest pain. He denied shortness of breath, orthopnea, paroxysmal dyspnea, weight gain or leg edema. No heart racing or palpitations. Repeat ECHO showed mean gradient of 43 mmHg, peak gradient of 76 mmHg, and hyperdynamic ejection fraction. Cardiac catheterization show no coronary artery disease. Operations and Procedures: 12/05/11 Procedure: AVR 27 TRIFECTA PERICARDIAL Hospital Course: Maribell Kauffman Sr. was admitted to [facility] on 12/05/2011 via the Same Day Program. He was brought to the operating room where Dr. Kehinde Ramirez performed the above procedure. He tolerated the procedure and was brought to the Cardiovascular Intensive Care Unit for recov anil. He initially required the pharmacologic support of intravenous phenylephrine. Amiodarone had been started intraoperatively for tachyarrhythmias. He was extubated from the ventilator on the day of surgery. Overnight he did well. By postoperative day #1 all drips were weaned to off and he was transferred to the Intermediate Cardiac Care Unit for continued rehabilitation. Edwin was started to diurese the volume he gained on cardiopulmonary bypass and during postoperative resuscitation and he responded appropriately. He was started on beta blockade and it was maximized. All tubes, lines, and epicardial pacing wires were removed without incident. He voided normally after his Beyer was removed. He worked with physical therapy and his discharge plan at this time is tohome with VNA. The remainder of the patient's hospital course was uneventful and by postoperative day #4 he had met all criteria for discharge to home. Pain was controlled on oral medications. He had walked 5 minutes and gone up and down stairs. He was tolerating a regular diet and had a bowel movement. Vital Signs: Last set of vitals: BP 106/57 Pulse 59 Temp(Src) 36.7 ??C (98.1 ??F) (Oral) Resp 16 Ht 185.4 cm (6' 1) Wt 112.5 kg (248 lb 0.3 oz) BMI 32.72 kg/m2 SpO2 97% Current weight: 112.5 kg Preoperative weight: 109.6 kg Pertinent physical exam findings prior to discharge: General: in chair, good affect Lungs: bronchial breath sounds at right base, otherwise clear Heart: regularly regular rate and rhythm, s1/s2 present, no murmurs/rubs/gallops Abdomen: nondistended, normoactive bowel sounds Neuro: no focal deficits Ext: no edema Incisions: healing well Important Lab Data: Lab Results Component Value Date/Time WBC 9.5 12/08/11 05:46 AM HGB 10.3* 12/08/11 05:46 AM HCT 30.0* 12/08/11 05:46 AM PLATELET 97* 12/08/11 05:46 AM NA 138 12/08/11 05:46 AM K 3.5 12/09/11 04:17 AM CL 99 12/08/11 05:46 AM CO2 32* 12/08/11 05:46 AM BUN 23* 12/08/11 05:46 AM CREATININE 0.62* 12/08/11 05:46 AM Discharge Medications: Maribell Kauffman Sr. Home Medication Instructions LAURA:[id number] Printed on:12/09/11 7096 Medication Information ERGOCALCIFEROL, VITAMIN D2, (VITAMIN D ORAL) Flaxseed Oil 1,000 mg Cap GLUCOSAMINE HCL/CHONDRO EVANS A (GLUCOSAMINE-CHONDROITIN ORAL) MULTI-VITAMIN ORAL Take by mouth daily. aspirin 81 mg EC tablet Take 81 mg by mouth daily. acetaminophen (TYLENOL) 500 mg tablet Take 1-2 tablets by mouth every 6 hours as needed for Pain. AMIOdarone (PACERONE) 400 mg tablet Take 1 tablet by mouth daily. ibuprofen (ADVIL;MOTRIN) 200 mg tablet Take 3 tablets by mouth every 8 hours as needed for Pain. metoprolol tartrate (LOPRESSOR) 25 mg tablet Take 1 tablet by mouth 2 times daily. OXYcodone (ROXICODONE) 5 mg immediate release tablet Take 1-2 tablets by mouth every 4 hours as needed for Pain. senna-docusate (PERICOLACE) 8.6-50 mg per tablet Take 2 tablets by mouth daily. simvastatin (ZOCOR) 20 mg tablet Take 1 tablet by mouth every evening. OXYcodone (ROXICODONE) 5 mg immediate release tablet Take 1 tablet by mouth every 4 hours as needed for Pain. DO NOT FILL PRIOR TO 12/16/11. Discharge Instructions: Call your doctor if: You have a fever of greater than 101 degrees, shaking chills, if you develop redness or drainage from your incision sites, or if you have questions. Please call your surgeon's office if you have any discharge or drainage from your chest incision. Your surgeon, Dr. Kehinde Ramirez and/or the Cardiac Surgery Physician Purification Operator Team may be reached at . Antibiotic prophylaxis: You will need to take antibiotics prior to many invasive tests and treatments, such as dental cleaning, which should be done every 6 months. Your primary care physician or your dentist can prescribe this medication. Please refer to the card with the [employer] Guidelines for more information. You have been provided with 3 copies of this card. Keep one for your self. Give one to your primary care physician and one to your dentist. Please refer to the [employer] Guidelines for more information. Activity level: Do not lift more than 10 pounds for 4 weeks. Walk three times a day. You should continue to increase your walks by 1-2 minutes each day, as per your postoperative Cardiac Surgery Guidelines. When you are walking 20 minutes at a time you can cut back to two walks a day. It is expected that you will be walking 20-30 minutes twice a day within 3-4 weeks after discharge to home. Rest between activities and after meals. Use common sense, don't exhaust yourself. Biking: You may use a stationary bicycle whenever you are comfortable enough to permit this. Tighten the resistance slightly. Increase the amount of time on the bicycle as you would do for your walks, a minute or two each day. No biking outside until after your return appointment with Dr. Kehinde Ramirez. You may use a [place] or treadmill but avoid any pulling motion with the arms. Home activities: You may do light housework, e.g. dusting, setting the table, washing dishes, preparing a meal. Light carpentry and gardening are allowed. Avoid trying to open tight jars and stuck windows. No vacuuming, mopping, raking, shoveling, digging or hoeing until after your return visit with the surgeon. Sexual activity: You may engage in sexual activity when you feel ready. Use a position that protects your sternum (breastbone). Do not have your partner lie on your chest. Stairs: There are no restrictions on stair climbing. Use common sense. Don't exhaust yourself. Activities outside the home: After the first week home you may go out to dinner, visit friends, go to a movie, go to orthodox, etc. Heavy activities: No hunting, skiing, jogging, snow shoveling, snowmobiling, lawn mowing, swimming,golf or tennis until after your return appointment with the surgeon. Do not ride motorcycles, ATV'stractors or horses. Avoid the use of a rifle with kickback against the shoulder for six months. Sleep: Try to establish normal sleep patterns. Long naps during the day may make it hard for you tosleep at night. Use the pain medication at bedtime for the first week at home. If you have nightmares, contact us. Some medications make this worse and these can be changed. Smoking: It is very important that you not smoke after surgery. Smoking cessation education was provided. If you need further assistance with this please call and you will be referred to a smoking cessation specialist. Medications: Take only those medications listed on your discharge information. Keep your pain undercontrol so you can be active, do your coughing and breathing exercises and sleep. Contact us if thepain medication isn't working for you. Do not take any herbal preparations until after you return to see the surgeon. Diet: You should follow a regular diet until your appetite returns to normal. At that point in timeyou should resume a low fat, low cholesterol, [employer] Diet. Driving: No driving for 4 weeks. Avoid long trips if possible. If you must go on a long trip, stop the car and walk every hour. Shower/Bath: You may shower daily. No baths, soaking, or swimming until cleared by your surgeon. Wound care: Wash your incisions daily with antibacterial soap and rinse well, pat dry. Assess for any signs of infection such as increased redness, pain, warmth or drainage. Please call your surgeon's office if you have any discharge or drainage from your chest incision. If there is a lot of swelling, apply estuardo wraps during the day and remove at bedtime. Elevate your legs when you are sitting. Follow up appointments: You should arrange to see your primary care physician, KRISTIAN MACHUCA MD, intwo weeks. You will return to clinic to see Dr. Kehinde Ramirez in 4 weeks and will have a CXR,EKG, and ECHO at that time. A letter will be mailed to you with your appointment information. Cardiac Rehabilitation: Maribell Kauffman Sr. was seen regarding participation in outpatient Phase 2 Cardiac Rehabilitation at [facility]. A referral will be sent to this program. The patient was given contact information and should expect to be contacted by the program within 1-2 weeks after discharge from [facility]. Arrangements for VNA/home care: DOCUMENTATION FOR VNA SERVICES (INCLUDING THOSE PATIENTS WITH MEDICARE COVERAGE REQUIRING HOME VNA SERVICES AND/OR HOSPICE SERVICES) PATIENT'S LOCATION: Maribell Kauffman Sr. [address] [place] [id number] (home) [phone] (cell) Packaging [employer] Supplies Distributor's Name: Pt and Lauren In discussion with the attending physician, it is certified that this patient is under their care and that they, or a nurse practitioner, clinical nurse specialist or physician's ob gyn physician assistant who is working directly with them, had a face to face encounter that meets the physician face to face encounter requirements with this patient on 12/09/2011. The encounter with the patient was in whole, or in part, for the following medical condition, which is the primary reason for home health care services:AVR. In discussion with the provider, it is certified that, based on their findings, the following services are medically necessary for home health services. To provide the following care/treatments w ith the clinical findings supporting the need for services as follows: HOME HEALTH AGENCY: [facility]. PHONE: [phone] FAX: [phone] RN orders: Cardiopulmonary assessment, incisional assessment, assess vital signs, assessment of rehab progress, medication management and effectiveness, home safety evaluation. PLEASE REMOVE CHEST TUBE SUTURES ON OR AFTER 12/16/11. Start of Care Date: 12/10/11 SPECIAL INSTRUCTIONS: For any follow up questions, needs, or issues please call the Cardiac SurgeryOffice at [phone] FOR MEDICARE ONLY: In discussion with the attending physician, it is certified that the clinical findings support thatthis patient is homebound (i.e. absences from home require considerable and taxing effort and are for medical reasons or samaritan services of infrequently or of short duration when for other reasons) Home Health agencies which cover the area of patient's residence have been reviewed, either verbally or in writing, and patient/family have chosen the agency as noted. Home oxygen therapy: N/A Checo Nguyen PA-C Section [place] Cardioth[place] [address] Date: 11/3011 Time: 10:57 CC: MD KRISTIAN FUNK [address] [place] [address] * Miscellaneous - Provider, Scanning - 12/05/2011 7:23 AM EDT * Miscellaneous - Provider, Scanning - 12/05/2011 7:23 AM EDT documented in this encounter Plan of Treatment Upcoming Encounters Date Type Department Care Team (Late st Contact Info) Description 01/20/2024 9:30 AM EDT Office Visit Hematology/Oncology at [address] [id number] Miguelina Lucia APRN [facility] [place] [address] 02/27/2024 2:15 PM EDT Office Visit Dermatology at [place] [address] [place] [id number] Eliel Vanessa MD [address], [place]HAEL [place] [address] Scheduled Referrals Name Type Priority Associated Diagnoses Orde r Schedule REFERRAL TO CARDIAC REHAB Outpatient Referral Routine Aortic stenosis Ordered: 12/09/2011 documented as of this encounter Procedures Procedure Name Priority Date/Time Associated Diagnosis Comments IMPLANTABLE DEVICES SCAN 12/10/2011 9:51 AM EDT SCHEME TECHNICIAN SCAN 12/10/2011 9:51 AM EDT POTASSIUM Routine 12/09/2011 4:17 AM EDT XR CHEST PA AND LATERAL Routine 12/08/2011 8:03 AM EDT SCAN, PERIPHERAL BLOOD Routine 12/08/2011 5:46 AM EDT DIFFERENTIAL, AUTOMATED Routine 12/08/2011 5:46 AM EDT CBC (WITH DIFF) Routine 12/08/2011 5:46 AM EDT BASIC METABOLIC PANEL Routine 12/08/2011 5:46 AM EDT POCT GLUCOSE Routine 12/07/2011 9:03 PM EDT POCT GLUCOSE Routine 12/07/2011 4:03 PM EDT POCT GLUCOSE Routine 12/07/2011 12:22 PM EDT POCT GLUCOSE Routine 12/07/2011 9:01 AM EDT POTASSIUM Routine 12/07/2011 4:58 AM EDT POCT GLUCOSE Routine 12/07/2011 4:30 AM EDT POCT GLUCOSE Routine 12/06/2011 11:57 PM EDT POCT GLUCOSE Routine 12/06/2011 9:07 PM EDT POCT GLUCOSE Routine 12/06/2011 5:12 PM EDT POCT GLUCOSE Routine 12/06/2011 2:34 PM EDT POCT GLUCOSE Routine 12/06/2011 12:31 PM EDT POCT GLUCOSE Routine 12/06/2011 10:40 AM EDT POCT GLUCOSE Routine 12/06/2011 8:07 AM EDT POCT GLUCOSE Routine 12/06/2011 6:31 AM EDT NUCLEATED RED BLOOD CELLS Routine 12/06/2011 4:00 AM EDT DIFFERENTIAL, AUTOMATED Routine 12/06/2011 4:00 AM EDT CARDIAC ENZYMES (MC/CGP) Routine 12/06/2011 4:00 AM EDT CREATININE Routine 12/06/2011 4:00 AM EDT CBC (WITH DIFF) Routine 12/06/2011 4:00 AM EDT BUN Routine 12/06/2011 4:00 AM EDT POTASSIUM Routine 12/06/2011 4:00 AM EDT GLUCOSE, FASTING Routine 12/06/2011 4:00 AM EDT POCT GLUCOSE Routine 12/06/2011 3:56 AM EDT POCT GLUCOSE Routine 12/06/2011 2:16 AM EDT POCT GLUCOSE Routine 12/06/2011 12:07 AM EDT POCT GLUCOSE Routine 12/05/2011 10:13 PM EDT POCT GLUCOSE Routine 12/05/2011 9:16 PM EDT POCT GLUCOSE Routine 12/05/2011 8:02 PM EDT EXTUBATE Routine 12/05/2011 5:26 PM EDT BLOOD GAS ARTERIAL POC Routine 12/05/2011 5:17 PM EDT EKG 12-LEAD STAT 12/05/2011 1:45 PM EDT Aortic stenosis BLOOD GAS ARTERIAL POC Routine 12/05/2011 1:29 PM EDT ENDOTRACHEAL TUBE POSITION CHANGE Routine 12/05/2011 1:23 PM EDT XR CHEST ONE VIEW STAT 12/05/2011 1:2 2 PM EDT SURGICAL PATHOLOGY REPORT Routine 12/05/2011 11:50 AM EDT BLOOD GAS ARTERIAL POC Routine 12/05/2011 10:49 AM EDT DIFFERENTIAL, MANUAL STAT 12/05/2011 10:45 AM EDT APTT STAT 12/05/2011 10:45 AM EDT THROMBIN TIME STAT 12/05/2011 10:45 AM EDT PROTHROMBIN TIME STAT 12/05/2011 10:4 5 AM EDT FIBRINOGEN STAT 12/05/2011 10:45 AM EDT CBC (WITH DIFF) STAT 12/05/2011 10:45 AM EDT BLOOD GAS ARTERIAL POC Routine 12/05/2011 10:17 AM EDT BLOOD GAS ARTERIAL POC Routine 12/05/2011 9:42 AM EDT FIBRINOGEN STAT 12/05/2011 9:35 AM EDT PLATELET COUNT STAT 12/05/2011 9:35 AM EDT SPECIMEN TO PATHOLOGY Routine 12/05/2011 9:30 AM EDT PREPARE COAG FACTORS (NON-HEMOPHILIA) STAT 12/05/2011 9:20 AM EDT BLOOD GAS ARTERIAL POC Routine 12/05/2011 9:06 AM EDT BLOOD GAS ARTERIAL POC Routine 12/05/2011 8:13 AM EDT @REPLACE AORTIC VALVE, OPEN, W\CPB, W\PROSTHETIC VALVE (WRVU 41.32) 12/05/2011 7:14 AM EDT Aortic Stenosis PREPARE RBC STAT 12/05/2011 6:35 AM EDT POCT GLUCOSE Routine 12/05/2011 6:24 AM EDT documented in this encounter Results * EKG 12 Lead (01/15/2012 11:59 AM EDT) Ventricular rate 60 BPM MUSE SYSTEM Atrial Rate 60 BPM MUSE SYSTEM P-R Interval 214 ms MUSE SYSTEM QRS Duration 98 ms MUSE SYSTEM Q-T Interval 464 ms MUSE SYSTEM QTC Calculated (Bezet) 464 ms MUSE SYSTEM Calculated P Dodge 22 degrees MUSE SYSTEM Calculated R Dodge -8 degrees MUSE SYSTEM Calculated T Dodge 20 degrees MUSE SYSTEM INTERPRETATION Sinus rhythm with 1st degree A-V block RSR' or QR pattern in V1 suggests right ventricular conduction delay When compared with ECG of 05-DEC-2011 13:45, No significant change was found Confirmed by MD Leiva Robert ([id number]) on 01/15/2012 6:09:07 PM MUSE SYSTEM 01/15/2012 11:5 9 AM EDT 01/15/2012 6:09 PM EDT Kehinde Ramirez MD ECG ORDERABLES MUSE SYSTEM * Echo Transthoracic (Complete) (01/15/2012 11:36 AM EDT) EF 60 HEARTLAB SYSTEM Anatomical Region Laterality Modality Other 01/15/2012 Narrative 01/15/2012 12:03 PM EDT Procedure: ? Transthoracic Echocardiogram Patient: ? ARUN Giang ?(Age): 1940(71) Med Rec#: ?[id number] ? Sex: ?M ? Site Loc: ?[facility] ? Ht / Wt: ??185.4(cm)/109(k Pt. Loc: ? Echo Lab ? BSA: ?2.37 Study Date: ?01/15/2012 ? Pt. Type: Outpatient Tape: ? Referring: Kehinde Ramirez Referring: KRISTIAN MACHUCA G Clinical Trial Associate: Hany Deleon MS, [facility] Diagnosis: ??Aortic valve disorders (424.1) CPT Code(s): ??Echo LTD (45258), ??Color Doppler (13873), ??Doppler LTD (47553), Indication(s): ??Aortic prosthesis, F/U Rhythm: HR ?BP [...] ? Mid-Inferior ?Normal ? Mid-Inferoseptal ?Normal ? [place]-Septal ? Normal ? [place]-Anterior ? Normal ? [place]-Lateral ?Normal ? [place]-Inferior ? Normal ? [place]-Tip ?Normal ? Chambers ?Value ?Units (Range) ? [...] 01/15/2012 12:02:52 Images reviewed and interpretation verified [facility] Cardiac Ultrasound Laboratory Procedure Note Kulwinder Cherry MD - 01/15/2012 Procedure: Transthoracic Echocardiogram Patient: ARUN NO(Age): 1940(71) Med Rec#: [id number] Sex: M Site Loc: [facility] Ht / Wt: 185.4(cm)/109(k Pt. Loc: Echo Lab BSA: 2.37 Study Date: 01/15/2012 Pt. Type: Outpatient Tape: Referring: Kehinde Ramirez Referring: KRISTIAN MACHUCA G Clinical Trial Associate: Hany Deleon MS, [facility] Diagnosis: Aortic valve disorders (424.1) CPT Code(s): Echo LTD (82617), Color Doppler (91694), Doppler LTD (37827), Indication(s): Aortic prosthesis, F/U Rhythm: HR BP [...] Normal Mid-Posterolateral Normal Mid-Inferior Normal Mid-Inferoseptal Normal [place]-Septal Normal [place]-Anterior Normal [place]-Lateral Normal [place]-Inferior Normal [place]-Tip Normal Chambers Value Units (Range) LV EF [...] 01/15/2012 12:02:52 Images reviewed and interpretation verified [facility] Cardiac Ultrasound Laboratory Kehinde Ramirez MD ECHO ORDERABLES * XR chest routine PA & lateral [...] clearing of bibasilar atelectasis and pleuralfluid. Kehinde Ramirez MD IMG DX ORDERABLES * SCAN DOC: IMPLANTABLE DEVICES (12/10/2011 9:51 AM EDT) Narrative 12/10/2011 9:51 AM EDT Procedure Note Provider, Scanning - 12/10/2011 9:51 AM EDT Scanning Provider MEDIA MGR SCAN EXT O RDR/RSLT * SCAN DOC: SCHEME TECHNICIAN (12/10/2011 9:51 AM EDT) Anatomical Region Laterality Modality Other Narrative 12/10/2011 11:27 AM EDT Procedure Note Provider, Scanning - 12/10/2011 9:51 AM EDT Scanning Provider MEDIA MGR SCAN EXT O RDR/RSLT * Potassium (12/09/2011 4:17 AM EDT) Potassium 3.5 3.5 - 5.0 mmol/L EFREM SANCHEZ Comment: Please note: ??Patients with WBC >100,000 may have falsely elevated Potassium levels. ??For accurate Potassium quantification in these patients send serum separator tube (gold top) for subsequent determinations. ??Contact the Clinical Chemistry Laboratory if there are any questions. Blood specimen (specimen) 12/09/2011 4:17 AM EDT 12/09/2011 4:49 AM EDT Narrative Resulting Agency Comment Spec In Lab Kehidne Ramirez MD CHEMISTRY ORDERABL ES [facility] * XR chest routine PA & lateral (12/08/2011 8:03 AM EDT) Anatomical Region Laterality Modality Chest N/A Radiographic Komal ging 12/08/2011 8:03 AM EDT Narrative 12/08/2011 11:18 AM EDT Examination CHEST ROUTINE PA+LAT, 12/08/2011 Clinical History S/P AVR. Comparison Portable AP supine chest, 12/05/2011 at 1300 hours. Findings Interval removal of the ET tube, NG tube, right IJ [place]-Eber catheter, and the 2 subxiphoid drains. ??No pneumothorax. A relatively low degree of lung inflation is demonstrated, bilaterally, with small bilateral pleural effusions and mild left basilar subsegmental atelectasis. ??Cardiomediastinal silhouette is stable. ??No pulmonary edema. ??Median sternotomy wires and prosthetic aortic valve are again noted. Impression Uncomplicated removal of support equipment. ??Small bilateral pleural effusions with mild left basilar subsegmental atelectasis. Procedure Note Ellie Wilson MD - 12/08/2011 Examination CHEST ROUTINE PA+LAT, 12/08/2011 Clinical History S/P AVR. Comparison Portable AP supine chest, 12/05/2011 at 1300 hours. Findings Interval removal of the ET tube, NG tube, right IJ [place]-Eber catheter, andthe 2 subxiphoid drains. No pneumothorax. A relatively low degree of lung inflation is demonstrated, bilaterally, with small bilateral pleuraleffusions and mild left basilar subsegmental atelectasis. Cardiomediastinalsilhouette is stable. No pulmonary edema. Median sternotomy wires and prostheticaortic valve are again noted. Impression Uncomplicated removal of support equipment. Small bilateral pleuraleffusions with mild left basilar subsegmental atelectasis. Kehinde Ramirez MD IMG DX ORDERABLES * (ABNORMAL) DIFFERENTIAL, AUTOMATED (12/08/2011 5:46 AM EDT) Neutrophil % 82.7(H) 34.0 - 71.0 % CERNER MILLENNIUM Neutrophil Absolute 7.84(H) 1.50 - 6.30 x10(3)/mc L CERNER MILLENNIUM Lymph % 7.4(L) 19.0 - 53.0 % CERNER MILLENNIUM Lymphocytes Abs 0.7(L) 1.0 - 3.6 x10(3)/mc L CERNER MILLENNIUM Monocyte % 8.4 4.0 - 13.0 % CERNER MILLENNIUM Monocyte Abs 0.8 0.2 - 1.0 x10(3)/mc L CERNER MILLENNIUM Eos % 1.1 0.0 - 7.0 % CERNER MILLENNIUM Eosinophils Abs 0.1 0.0 - 0.5 x10(3)/mc L CERNER MILLENNIUM Basophil % 0.3 0.0 - 2.0 % CERNER MILLENNIUM Baso Absolute 0.0 0.0 - 0.2 x10(3)/mc L CERN[facility] MILLENNIUM Immature Gran % 0.10 0.00 - 0.66 % CERNER MILLENNIUM Comment: Immature granulocytes(IG's)percentage and absolute count will include metamyelocytes, myelocytes, and promyelocytes. Blood smears from CBCs yielding IG's will be scanned manually for concordance. If this scan disagrees with the automated IG or if promyelocytes are noted, a manual differential will be performed. Immature Gran Absolute 0.01 0.00 - 0.05 x10(3)/mc L [facility] MILLENNIUM Blood specimen (specimen) 12/08/2011 5:46 AM EDT 12/08/2011 6:03 AM EDT Kehinde Ramirez MD HEMATOLOGY ORDERAB LES [facility] MILLENNIUM * SCAN, PERIPHERAL BLOOD (12/08/2011 5:46 AM EDT) Plat estimate Decreased CERNER MILLENNIUM RBC Morphology Normal CERNE R MILLENNIUM Blood specimen (specimen) 12/08/2011 5:46 AM EDT 12/08/2011 6:03 AM EDT Narrative Resulting Agency Comment Spec In Lab Kehinde Ramirez MD HEMATOLOGY ORDERAB LES Performing Organization Address City/[facility]/ZIP Co de Phone Number CERNER MILLENNIUM * (ABNORMAL) Basic Metabolic Panel (non-fasting) (12/08/2011 5:46 AM EDT) Glucose 119 60 - 199 mg/dL CERNER MILLENNIUM Comment:Diabetes: >=200 mg/d L plus symptoms Blood Urea Nitrogen 23(H) 10 - 20 mg/dL CERN[facility] MILLENNIUM Creatinine 0.62(L) 0.80 - 1.50 mg/dL CERN[facility] MILLENNIUM Comment: Please note that the pediatric reference intervals supplied above were not validated at [facility]. Results from pediatric patients should be interpreted [...] Laboratory if there are any questions. Chloride 99 98 - 107 mmol/L CERN[facility] MILLENNIUM Carbon Dioxide 32(H) 22 - 31 mmol/L [facility]ERN[facility] MILLENNIUM Anion Gap 7 5 - 15 mmol/L CERN[facility] MILLENNIUM Calcium 9.1 8.5 - 10.5 mg/dL CERNER MILLENNIUM Est Glomerular Filtration Rate >60 >=60 [facility] Comment: The National Kidney Disease Education Program [...] J Am Soc Nephrol;6:1963-72. Blood specimen (specimen) 12/08/2011 5:46 AM EDT 12/08/2011 6:02 AM EDT Narrative Resulting Agency Comment Spec In Lab Kehinde Ramirez MD CHEMISTRY ORDERABL ES Performing Organization Address [facility] de Phone Number [facility] MILLENNIUM * (ABNORMAL) CBC (with Diff) (12/08/2011 5:46 AM EDT) White Blood Cell 9.5 4.0 - 10.0 x10(3)/mc L CERNER MILLENNIUM Red Blood Cell 3.11(L) 4.63 - 6.08 x10(6)/mc L CERNER MILLENNIUM Hemoglobin 10.3(L) 13.7 - 17.5 gm/dL CERNER MILLENNIUM Hematocrit 30.0(L) 40.0 - 51.0 % CERNER MILLENNIUM Mean Cell Volume 96.5(H) 79.0 - 92.0 fL CERNER MILLENNIUM Mean Cell Hemoglobin 33.1(H) 25.6 - 32.2 pg CERNER MILLENNIUM Mean Cell Hemoglobin Concentration 34.3 32.0 - 36.5 gm/dL CERNER MILLENNIUM Platelet 97(L) 145 - 370 x10(3)/mc L CERNER MILLENNIUM RDW Standard Deviation 46.4(H) 35.0 - 46.0 fL CERNER MILLENNIUM RDW coefficient of variation 13.4 10.9 - 14.4 % CERNER MILLENNIUM Mean Platelet Volume 10.6 9.0 - 12.0 fL CERN[facility] MILLENNIUM Blood specimen (specimen) 12/08/2011 5:46 AM EDT 12/08/2011 6:03 AM EDT Narrative Resulting Agency Comment Spec In Lab Kehinde Ramirez MD HEMATOLOGY ORDERAB LES [facility] * POCT GLUCOSE LAB USE ONLY (12/07/2011 9:03 PM EDT) Glucose, POC 143 60 - 199 mg/dL CERNER MILLENNIUM Comment: Supplemental ranges: <110 mg/dL before meals <200 mg/dL all other times of the day Blood specimen (specimen) 12/07/2011 9:03 PM EDT 12/07/2011 9:03 PM EDT Kehinde Ramirez MD POINT OF CARE TEST ORDERABLES CERMAGGY FATIMAIUM * POCT GLUCOSE LAB USE ONLY (12/07/2011 4:03 PM EDT) Glucose, POC 139 60 - 199 mg/dL [facility] Comment: Supplemental ranges: <110 mg/dL before meals <200 mg/dL all other times of the day Blood specimen (specimen) 12/07/2011 4:03 PM EDT 12/07/2011 4:03 PM EDT Kehinde Ramirez MD POINT OF CARE TEST ORDERABLES Performing Organization Address [facility] Co de Phone Number [facility] * POCT GLUCOSE LAB USE ONLY (12/07/2011 12:22 PM EDT) Glucose, POC 119 60 - 199 mg/dL [facility] Comment: Supplemental ranges: <110 mg/dL before meals <200 mg/dL all other times of the day Blood specimen (specimen) 12/07/2011 12:22 PM EDT 12/07/2011 12:22 PM EDT Kehinde Ramirez MD POINT OF CARE TEST ORDERABLES Performing Organization Address [facility] Co de Phone Number CERMAGGY FATIMAIUM * POCT GLUCOSE LAB USE ONLY (12/07/2011 9:01 AM EDT) Glucose, POC 188 60 - 199 mg/dL [facility] Comment: Supplemental ranges: <110 mg/dL before meals <200 mg/dL all other times of the day Blood specimen (specimen) 12/07/2011 9:01 AM EDT 12/07/2011 9:01 AM EDT Kehinde Ramirez MD POINT OF CARE TEST ORDERABLES Performing Organization Address City/[facility]/ZIP Co de Phone Number CERMAG[facility] WELLSENNIUM * (ABNORMAL) Potassium (12/07/2011 4:58 AM EDT) Potassium 5.2(H) 3.5 - 5.0 mmol/L [facility] Comment: Please note: ??Patients with WBC >100,000 may have falsely elevated Potassium levels. ??For accurate Potassium quantification in these patients send serum separator tube (gold top) for subsequent determinations. ??Contact the Clinical Chemistry Laboratory if there are any questions. Blood specimen (specimen) 12/07/2011 4:58 AM EDT 12/07/2011 5:16 AM EDT Narrative Resulting Agency Comment Spec In Lab Kehinde Ramirez MD CHEMISTRY ORDERABL ES Performing Organization Address [facility] Co tn Phone Number [facility] * POCT GLUCOSE LAB USE ONLY (12/07/2011 4:30 AM EDT) Glucose, POC 132 60 - 199 mg/dL [facility] Comment: Supplemental ranges: <110 mg/dL before meals <200 mg/dL all other times of the day Blood specimen (specimen) 12/07/2011 4:30 AM EDT 12/07/2011 4:30 AM EDT Kehinde Ramirez MD POINT OF CARE TEST ORDERABLES Performing Organization Address [facility] Phone Number [facility] * POCT GLUCOSE LAB USE ONLY (12/06/2011 11:57 PM EDT) Glucose, POC 162 60 - 199 mg/dL [facility] Comment: Supplemental ranges: <110 mg/dL before meals <200 mg/dL all other times of the day Blood specimen (specimen) 12/06/2011 11:57 PM EDT 12/06/2011 11:57 PM EDT Kehinde Ramirez MD POINT OF CARE TEST ORDERABLES Performing Organization Address [facility] Co de Phone Number [facility] * POCT GLUCOSE LAB USE ONLY (12/06/2011 9:07 PM EDT) Glucose, POC 134 60 - 199 mg/dL [facility] MILLENNIUM Comment: Supplemental ranges: <110 mg/dL before meals <200 mg/dL all other times of the day Blood specimen (specimen) 12/06/2011 9:07 PM EDT 12/06/2011 9:07 PM EDT Kehinde Ramirez MD POINT OF CARE TEST ORDERABLES Performing Organization Address City/[facility] Co de Phone Number [facility] PR[facility]CILLABANNER [facility]ENTERIUM * POCT GLUCOSE LAB USE ONLY (12/06/2011 5:12 PM EDT) Glucose, POC 127 60 - 199 mg/dL [facility] MILLENNIUM Comment: Supplemental ranges: <110 mg/dL before meals <200 mg/dL all other times of the day Blood specimen (specimen) 12/06/2011 5:12 PM EDT 12/06/2011 5:12 PM EDT Kehinde Ramirez MD POINT OF CARE TEST ORDERABLES Performing Organization Address [facility] Co de Phone Number [facility] PRISCILALBANNER [facility]ENTERIUM * POCT GLUCOSE LAB USE ONLY (12/06/2011 2:34 PM EDT) Glucose, POC 135 60 - 199 mg/dL [facility] Comment: Supplemental ranges: <110 mg/dL before meals <200 mg/dL all other times of the day Blood specimen (specimen) 12/06/2011 2:34 PM EDT 12/06/2011 2:34 PM EDT Kehinde Ramirez MD POINT OF CARE TEST ORDERABLES Performing Organization Address City/[facility] Co de Phone Number [facility] PRISCILLABANNER B[facility]OD [facility]ENTERIUM * POCT GLUCOSE LAB USE ONLY (12/06/2011 12:31 PM EDT) Glucose, POC 133 60 - 199 mg/dL [facility] MILLENNIUM Comment: Supplemental ranges: <110 mg/dL before meals <200 mg/dL all other times of the day Blood specimen (specimen) 12/06/2011 12:31 PM EDT 12/06/2011 12:31 PM EDT Kehinde Ramirez MD POINT OF CARE TEST ORDERABLES Performing Organization Address [facility] de Phone Number [facility]LLAM[facility] * POCT GLUCOSE LAB USE ONLY (12/06/2011 10:40 AM EDT) Glucose, POC 136 60 - 199 mg/dL [facility] MILLENNIUM Comment: Supplemental ranges: <110 mg/dL before meals <200 mg/dL all other times of the day Blood specimen (specimen) 12/06/2011 10:40 AM EDT 12/06/2011 10:40 AM EDT Kehinde Ramirez MD POINT OF CARE TEST ORDERABLES Performing Organization Address [facility] Phone Number [facility] * POCT GLUCOSE LAB USE ONLY (12/06/2011 8:07 AM EDT) Glucose, POC 145 60 - 199 mg/dL [facility] MILLENNIUM Comment: Supplemental ranges: <110 mg/dL before meals <200 mg/dL all other times of the day Blood specimen (specimen) 12/06/2011 8:07 AM EDT 12/06/2011 8:07 AM EDT Kehinde Ramirez MD POINT OF CARE TEST ORDERABLES Performing Organization Address [facility] de Phone Number [facility] PRISCILLABANNER BAYWOOD MED[facility] CENTERIUM * POCT GLUCOSE LAB USE ONLY (12/06/2011 6:31 AM EDT) Glucose, POC 135 60 - 199 mg/dL [facility] MILLENNIUM Comment: Supplemental ranges: <110 mg/dL before meals <200 mg/dL all other times of the day Blood specimen (specimen) 12/06/2011 6:31 AM EDT 12/06/2011 6:31 AM EDT Kehinde Ramirez MD POINT OF CARE TEST ORDERABLES Performing Organization Address [facility] de Phone Number EF[facility] FATIMAIUM * NUCLEATED RED BLOOD CELLS (12/06/2011 4:00 AM EDT) NRBC% auto 0.0 0.0 - 0.2 % CERNER MILLENNIUM NRBC Absolute 0.000 0.000 - 0.012 x10(3)/mcL CERNER MILLENNIUM Blood specimen (specimen) 12/06/2011 4:00 AM EDT 12/06/2011 4:10 AM EDT Narrative Resulting Agency Comment Spec In Lab Kehinde Ramirez MD HEMATOLOGY ORDERAB LES Performing Organization Address City/[facility]/ZIP Co de Phone Number EFREM FATIMAIUM * (ABNORMAL) DIFFERENTIAL, AUTOMATED (12/06/2011 4:00 AM EDT) Neutrophil % 88.8(H) 34.0 - 71.0 % CERNER MILLENNIUM Neutrophil Absolute 15.10(H) 1.50 - 6.30 x10(3)/mc L CERNER MILLENNIUM Lymph % 7.1(L) 19.0 - 53.0 % CERNER MILLENNIUM Lymphocytes Abs 1.2 1.0 - 3.6 x10(3)/mc L CERNER MILLENNIUM Monocyte % 3.9(L) 4.0 - 13.0 % CERNER MILLENNIUM Monocyte Abs 0.7 0.2 - 1.0 x10(3)/mc L CERNER MILLENNIUM Eos % 0.0 0.0 - 7.0 % CERNER MILLENNIUM Eosinophils Abs 0.0 0.0 - 0.5 x10(3)/mc L CERNER MILLENNIUM Basophil % 0.1 0.0 - 2.0 % CERNER MILLENNIUM Baso Absolute 0.0 0.0 - 0.2 x10(3)/mc L CERNER MILLENNIUM Immature Gran % 0.10 0.00 - 0.66 % CERNER MILLENNIUM Comment: Immature granulocytes(IG's)percentage and absolute count will include metamyelocytes, myelocytes, and promyelocytes. Blood smears from CBCs yielding IG's will be scanned manually for concordance. If this scan disagrees with the automated IG or if promyelocytes are noted, a manual differential will be performed. Immature Gran Absolute 0.02 0.00 - 0.05 x10(3)/mc L [facility]IUM Blood specimen (specimen) 12/06/2011 4:00 AM EDT 12/06/2011 4:10 AM EDT Kehinde Ramirez MD HEMATOLOGY ORDERAB LES Performing Organization Address [facility] Co de Phone Number [employer] [facility]ren[facility]IUM * (ABNORMAL) Cardiac Enzymes (12/06/2011 4:00 AM EDT) Troponin-T 0.34(H) <=0.03 ng/mL [facility] Comment: 0.03 ng/mL: Represents the 99th percentile upper reference limit for normals. >0.03 ng/mL: Elevated cardiac troponin T level indicative of myocardial damage. Diagnosis of acute, evolving or recent [place] requires a typical rise and gradual fall of cTnT with at least ONE of the following: a) Ischemic symptoms b) Development of pathologic Q waves on the ECG c) ECG changes indicative of eschemia (S-T segment elevation/depression) d) Coronary artery intervention Serial bloods should be obtained for testing on admission, at 6 to 9 hrs and again at 12 to 24 hrs if earlier samples are negative and the clinical index of suspicion is high. Reference: [Myocardial infarction redefined a consensus document of the Joint Society of Cardiology/[place] College of Cardiology Committee for the redefinition of myocardial infarction. Journal of the [place] College [employer] Cardiology 2000; 36: 959-969] Creatine Kinase 293(H) 0 - 200 unit/L [facility] Blood specimen (specimen) 12/06/2011 4:00 AM EDT 12/06/2011 4:10 AM EDT Narrative Resulting Agency Comment Spec In Lab Kehinde Ramirez MD CHEMISTRY ORDERABL ES Performing Organization Address [facility] Co de Phone Number EFREM SirenServJOEL * Potassium (12/06/2011 4:00 AM EDT) Potassium 4.5 3.5 - 5.0 mmol/L CERNER [facility] Comment: Please note: ??Patients with WBC >100,000 may have falsely elevated Potassium levels. ??For accurate Potassium quantification in these patients send serum separator tube (gold top) for subsequent determinations. ??Contact the Clinical Chemistry Laboratory if there are any questions. Blood specimen (specimen) 12/06/2011 4:00 AM EDT 12/06/2011 4:10 AM EDT Narrative Resulting Agency Comment Spec In Lab Kehinde Ramirez MD CHEMISTRY ORDERABL ES Performing Organization Address [facility] de Phone Number [facility] * (ABNORMAL) Glucose, fasting (12/06/2011 4:00 AM EDT) Glucose Fasting 139(H) 65 - 99 mg/dL [facility] Comment: ?Fasting* Glucose Interpretive Criteria Normal ?65-99 [...] of Diabetes Mellitus, Position Statement from the [place] [employer] Association. ??Diabetes Care, Volume 33, Supplement 1, May 2009 Blood specimen (specimen) 12/06/2011 4:00 AM EDT 12/06/2011 4:10 AM EDT Narrative Resulting Agency Comment Spec In Lab Kehinde Ramirez MD CHEMISTRY ORDERABL ES Performing Organization Address [facility] de Phone Number [facility] * (ABNORMAL) Creatinine, serum (12/06/2011 4:00 AM EDT) Creatinine 0.57(L) 0.80 - 1.50 mg/dL [facility] Comment: Please note that the pediatric reference intervals supplied above were not validated at [facility]. Results from pediatric patients should be interpreted in conjunction to the patient's age, height and muscle mass. Est Glomerular Filtration Rate >60 >=60 [facility] Comment: The National Kidney Disease Education Program [...] J Am Soc Nephrol;6:1963-72. Blood specimen (specimen) 12/06/2011 4:00 AM EDT 12/06/2011 4:10 AM EDT Narrative Resulting Agency Comment Spec In Lab Kehinde Ramirez MD CHEMISTRY ORDERABL ES [facility] * BUN (12/06/2011 4:00 AM EDT) Blood Urea Nitrogen 16 10 - 20 mg/dL [facility] MILLENNIUM Blood specimen (specimen) 12/06/2011 4:00 AM EDT 12/06/2011 4:10 AM EDT Narrative Resulting Agency Comment Spec In Lab Kehinde Ramirez MD CHEMISTRY ORDERABL ES [facility] * (ABNORMAL) CBC (with Diff) (12/06/2011 4:00 AM EDT) White Blood Cell 17.0(H) 4.0 - 10.0 x10(3)/mc L [facility] MILLENNIUM Red Blood Cell 3.65(L) 4.63 - 6.08 x10(6)/mc L [facility] MILLENNIUM Hemoglobin 12.1(L) 13.7 - 17.5 gm/dL [facility] Comment: Called by: [facility], Read back by: ANABEL العلي, Date-Time: 12-06-11 04:39. LAST HGB WAS IN THE OR. Hematocrit 34.7(L) 40.0 - 51.0 % [facility] MILLENNIUM Mean Cell Volume 95.1(H) 79.0 - 92.0 fL [facility] MILLENNIUM Mean Cell Hemoglobin 33.2(H) 25.6 - 32.2 pg [facility] MILLENNIUM Mean Cell Hemoglobin Concentration 34.9 32.0 - 36.5 gm/dL [facility] MILLENNIUM Platelet 159 145 - 370 x10(3)/mc L [facility] MILLENNIUM RDW Standard Deviation 46.4(H) 35.0 - 46.0 fL [facility] MILLENNIUM RDW coefficient of variation 13.5 10.9 - 14.4 % [facility] MILLENNIUM Mean Platelet Volume 10.5 9.0 - 12.0 fL [facility] MILLENNIUM Blood specimen (specimen) 12/06/2011 4:00 AM EDT 12/06/2011 4:10 AM EDT Narrative Resulting Agency Comment Spec In Lab Kehinde Ramirez MD HEMATOLOGY ORDERAB LES Performing Organization Address [facility] de Phone Number [facility] * POCT GLUCOSE LAB USE ONLY (12/06/2011 3:56 AM EDT) Glucose, POC 143 60 - 199 mg/dL [facility] Comment: Supplemental ranges: <110 mg/dL before meals <200 mg/dL all other times of the day Blood specimen (specimen) 12/06/2011 3:56 AM EDT 12/06/2011 3:56 AM EDT Kehinde Ramirez MD POINT OF CARE TEST ORDERABLES Performing Organization Address [facility] Phone Number [facility] * POCT GLUCOSE LAB USE ONLY (12/06/2011 2:16 AM EDT) Glucose, POC 139 60 - 199 mg/dL [facility] Comment: Supplemental ranges: <110 mg/dL before meals <200 mg/dL all other times of the day Blood specimen (specimen) 12/06/2011 2:16 AM EDT 12/06/2011 2:16 AM EDT Kehinde Ramirez MD POINT OF CARE TEST ORDERABLES Performing Organization Address [facility] de Phone Number [facility] * POCT GLUCOSE LAB USE ONLY (12/06/2011 12:07 AM EDT) Glucose, POC 165 60 - 199 mg/dL [facility] Comment: Supplemental ranges: <110 mg/dL before meals <200 mg/dL all other times of the day Blood specimen (specimen) 12/06/2011 12:07 AM EDT 12/06/2011 12:07 AM EDT Kehinde Ramirez MD POINT OF CARE TEST ORDERABLES Performing Organization Address [facility] Co de Phone Number [facility] * POCT GLUCOSE LAB USE ONLY (12/05/2011 10:13 PM EDT) Glucose, POC 138 60 - 199 mg/dL [facility] Comment: Supplemental ranges: <110 mg/dL before meals <200 mg/dL all other times of the day Blood specimen (specimen) 12/05/2011 10:13 PM EDT 12/05/2011 10:13 PM EDT Kehinde Ramirez MD POINT OF CARE TEST ORDERABLES Performing Organization Address [facility] Co de Phone Number [facility] * POCT GLUCOSE LAB USE ONLY (12/05/2011 9:16 PM EDT) Glucose, POC 171 60 - 199 mg/dL [facility] Comment: Supplemental ranges: <110 mg/dL before meals <200 mg/dL all other times of the day Blood specimen (specimen) 12/05/2011 9:16 PM EDT 12/05/2011 9:16 PM EDT Kehinde Ramirez MD POINT OF CARE TEST ORDERABLES Performing Organization Address [facility] de Phone Number [facility] * POCT GLUCOSE LAB USE ONLY (12/05/2011 8:02 PM EDT) Glucose, POC 175 60 - 199 mg/dL [facility] Comment: Supplemental ranges: <110 mg/dL before meals <200 mg/dL all other times of the day Blood specimen (specimen) 12/05/2011 8:02 PM EDT 12/05/2011 8:02 PM EDT Kehinde Ramirez MD POINT OF CARE TEST ORDERABLES Performing Organization Address [facility] Co de Phone Number [facility] * (ABNORMAL) BLOOD GAS 2 ARTERIAL (12/05/2011 5:17 PM EDT) pH, Arterial 7.35(L) CERNER MILLENNIUM PCO2, Arterial 40 mmHg CERNE R MILLENNIUM PO2, Arterial 116(H) mmHg [facility]ER MILLENNIUM Bicarbonate, Arterial 21.4 mmol/L [facility] MILLENNIUM Base Excess, Arterial -4.2(L) mmol/L [facility] MILLENNI[facility] Hgb Blood Gas 12.6(L) gm/dL [facility] Comment: Total Hemoglobin (in gm/dL) ?Based on [facility] Hematology ranges: ?Age ?Reference Range Less than 3 days ?14.5 to 22.5 3 days to 2 weeks ? 12.5 to 20.5 2 weeks to 1 month ?10.0 to 18.0 1 to 6 months ?9.4 to 14.0 6 months to 2 years ? 10.5 to 13.5 2 to 6 years ?11.5 to 13.5 6 to 12 years ? 11.5 to 15.5 12 to 18 years (female) 12.0 to 16.0 ? (male) ?? 13.0 to 16.0 > 18 years ? (female) 11.2 to 15.7 ? (male) ?? 13.7 to 17.5 Oxyhemoglobin, Arterial 97.2(H) % [facility] MILLENNIUM Carboxyhemoglob in, Arterial 0.6 % [facility] Comment: Nonsmokers: 0.5-1.5% COHB Smokers: Variable, but usually less than 10% Toxic: 20-30% COHB Lethal: Greater than 60% COHB Methemoglobin, Arterial 0.4 % [facility] MILLENNIUM Na Whole Blood 138 mmol/L CERNE R MILLENNIUM K Whole Blood 4.4 mmol/L [facility] Comment: Please note: Patients with WBC >100,000 may have falsely elevated Potassium levels. Contact the Clinical Chemistry Laboratory if there are any questions. ICa Whole Blood 1.12(L) mmol/L [facility] ER [facility]ILLENNI[facility] Comment: Reference Ranges: ?? < 19 yrs: 1.22 - 1.37 mmol/L ? Adults: 1.15 - 1.33 mmol/L Note: ??Total bilirubin higher than 20 mg/dL may lead to falsely low ionized calcium. CL Whole Blood 106 mmol/L [facility] R MILLENNIUM Gluc Whole Bld 156 mg/dL [facility] R [facility]ILL[facility]NI[facility] Comment:Diabetes: >=200 mg/d L plus symptoms. FIO2 Art 100 % [facility] MILLENNIUM PF Ratio Art 116 [facility] MILLENNIUM Blood specimen (specimen) 12/05/2011 5:17 PM EDT 12/05/2011 5:17 PM EDT Kehinde Ramirez MD POINT OF CARE TEST ORDERABLES Performing Organization Address [facility] Co de Phone Number [facility]ER MILLENNIUM * EKG 12 Lead (12/05/2011 1:45 PM EDT) Ventricular rate 72 BPM MUSE SYSTEM Atrial Rate 72 BPM MUSE SYSTEM P-R Interval 188 ms MUSE SYSTEM QRS Duration 96 ms MUSE SYSTEM Q-T Interval 444 ms MUSE SYSTEM QTC Calculated (Bezet) 486 ms MUSE SYSTEM Calculated P Dodge 9 degrees MUSE SYSTEM Calculated R Dodge -7 degrees MUSE SYSTEM Calculated T Dodge 19 degrees MUSE SYSTEM INTERPRETATION Normal sinus rhythm RSR' or QR pattern in V1 suggests right ventricular conduction delay Prolonged QT Abnormal ECG When compared with ECG of 18-NOV-2011 11:12, Premature ventricular complexes are no longer Present Confirmed by MD GENA, DIPIKA ([id number]) on 12/05/2011 7:06:45 PM MUSE SYSTEM 12/05/2011 1:45 PM EDT 12/05/2011 7:06 PM EDT Kehinde Ramirez MD ECG ORDERABLES Performing Organization Address [facility] Co de Phone Number [facility] * (ABNORMAL) BLOOD GAS 2 ARTERIAL (12/05/2011 1:29 PM EDT) pH, Arterial 7.33(L) [facility]ER MILLENNIUM PCO2, Arterial 41 mmHg CERNE R MILLENNIUM PO2, Arterial 416(H) mmHg [facility]ER MILLENNIUM Bicarbonate, Arterial 21.2 mmol/L [facility] MILLENNIUM Base Excess, Arterial -4.7(L) mmol/L [facility] MILLENNIUM Hgb Blood Gas 12.9(L) gm/dL [facility]ILL[facility]NI[facility] Comment: Total Hemoglobin (in gm/dL) ?Based on [facility] Hematology ranges: ?Age ?Reference Range Less than 3 days ?14.5 to 22.5 3 days to 2 weeks ? 12.5 to 20.5 2 weeks to 1 month ?10.0 to 18.0 1 to 6 months ?9.4 to 14.0 6 months to 2 years ? 10.5 to 13.5 2 to 6 years ?11.5 to 13.5 6 to 12 years ? 11.5 to 15.5 12 to 18 years (female) 12.0 to 16.0 ? (male) ?? 13.0 to 16.0 > 18 years ? (female) 11.2 to 15.7 ? (male) ?? 13.7 to 17.5 Oxyhemoglobin, Arterial 98.6(H) % [facility] MILLENNIUM Carboxyhemoglob in, Arterial 0.4 % [facility] MILLENNI[facility] Comment: Nonsmokers: 0.5-1.5% COHB Smokers: Variable, but usually less than 10% Toxic: 20-30% COHB Lethal: Greater than 60% COHB Methemoglobin, Arterial 0.4 % [facility] MILLENNIUM Na Whole Blood 140 mmol/L CERNE R MILLENNIUM K Whole Blood 4.1 mmol/L [facility]ILL[facility]NI[facility] Comment: Please note: Patients with WBC >100,000 may have falsely elevated Potassium levels. Contact the Clinical Chemistry Laboratory if there are any questions. ICa Whole Blood 1.12(L) mmol/L [facility] ER MILLENNIUM Comment: Reference Ranges: ?? < 19 yrs: 1.22 - 1.37 mmol/L ? Adults: 1.15 - 1.33 mmol/L Note: ??Total bilirubin higher than 20 mg/dL may lead to falsely low ionized calcium. CL Whole Blood 108(H) mmol/L CERNE R MILLENNIUM Gluc Whole Bld 135 mg/dL [facility] R MILLENNIUM Comment:Diabetes: >=200 mg/d L plus symptoms. FIO2 Art 100 % C[facility]ER MILLENNIUM PF Ratio Art 416 [facility] MILLENNIUM Blood specimen (specimen) 12/05/2011 1:29 PM EDT 12/05/2011 1:29 PM EDT Kehinde Ramirez MD POINT OF CARE TEST ORDERABLES Performing Organization Address City/State/[facility] Co de Phone Number [facility]ER MILLENNIUM * XR CHEST PA OR AP- 1 VIEW (12/05/2011 1:22 PM EDT) Anatomical Region Laterality Modality Chest N/A Radiographic Komal ging 12/05/2011 1:22 PM EDT Narrative 12/05/2011 1:26 PM EDT Examination Single-view chest. Clinical History Status post tissue aortic valve replacement. Comparison 11/18/2011 PA chest radiograph. Technique AP supine chest radiograph from 12/05/2011 at 1300 hours. Findings Endotracheal tube is approximately 5 cm above the mauricio. ??Right IJ introducer with [place]-E[place] catheter tip in the proximal main pulmonary artery. ??No pneumothorax is identified. ??2 subxiphoid drains are present. ??Nasogastric tube extends to the proximal stomach. ??Subsegmental atelectasis at the left lung base. ??No pleural fluid collection identified. ??No change in the cardiomediastinal silhouette. Impression Equipment positions as above. ??No complications are seen. Procedure Note Kay Brown MD - 12/05/2011 Examination Single-view chest. Clinical History Status post tissue aortic valve replacement. Comparison 11/18/2011 PA chest radiograph. Technique AP supine chest radiograph from 12/05/2011 at 1300 hours. Findings Endotracheal tube is approximately 5 cm above the mauricio. Right IJintroducer with [place]-Eber catheter tip in the proximal main pulmonary artery. No pneumothorax is identified. 2 subxiphoid drains are present. 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 Subsegmental atelectasis at the leftlung base. No pleural fluid collection identified. No change in the cardiomediastinal silhouette. Impression Equipment positions as above. No complications are seen. Kehinde Ramirez MD IMG DX ORDERABLES * SURGICAL PATHOLOGY REPORT (12/05/2011 11:50 AM EDT) Surgical Pathology Report ? [facility] ? Provider: ?? KEHINDE RAMIREZ Pt. Name: ?? ARUN PAULINO, MARIBELL Giang ? Acc #: ?[id number] ?Pt. ? Col Date: ?? 12/05/2011 ? /Sex: ?1940,(71 years),Male ? Rec Date: ?? 12/05/2011 ? LOC: ?[facility] ? SURGICAL PATHOLOGY ? ---Pathologic Diagnosis--- ? Aortic valve leaflets, excision: ? Valve leaflets with focal myxoid degeneration, and extensive dystrophic ? calcification. ? CR-0 ? 12/10/11 ? LJT ? 12/10/11 Verified by: ? Román BENITEZ, Kendra Espinoza ? Pathologist ? (Electronic Signature) ? The attending pathologist whose signature appears on this report has ? reviewed all diagnostic slides and has edited the gross and/or ? microscopic portion of the report in rendering the final pathologic ? diagnosis. ? ---Microscopic Description--- ? Slides reviewed, microscopic description not recorded. ? ---Gross Description--- ? Labeled/Fixative: ? Aortic valve leaflets, fresh. ? Qty/Size/Weight: ?Three, 8.0 cm (circumference). ? Tissue Description: ?? Three aortic valve leaflets, gore-white with extensive ? calcification in the cusps involving the free edge as ? well. ? Sections/Processi ng: ??Submitted for decalcification. ??(R1, decal) ??aje/LITTLE ? ---Clinical Information--- ? Specimen Submitted: ? A - Aortic Valve Leaflets ? Clinical History/Diagnosis : ? Aortic stenosis [facility] MILLENNIUM 12/05/2011 11:5 0 AM EDT Kehinde Ramirez MD PATHOLOGY/CYTOLOGY ORDERABLES [facility] * (ABNORMAL) BLOOD GAS 2 ARTERIAL (12/05/2011 10:49 AM EDT) pH, Arterial 7.36 [facility]ER MILLENNIUM PCO2, Arterial 43 mmHg CERNE R MILLENNIUM PO2, Arterial 403(H) mmHg [facility]ER MILLENNIUM Bicarbonate, Arterial 24.1 mmol/L [facility] MILLENNIUM Base Excess, Arterial -1.3 mmol/L [facility] MILLENNIUM Hgb Blood Gas 10.2(L) gm/dL [facility] MILLENNIUM Comment: Total Hemoglobin (in gm/dL) ?Based on [facility] Hematology ranges: ?Age ?Reference Range Less than 3 days ?14.5 to 22.5 3 days to 2 weeks ? 12.5 to 20.5 2 weeks to 1 month ?10.0 to 18.0 1 to 6 months ?9.4 to 14.0 6 months to 2 years ? 10.5 to 13.5 2 to 6 years ?11.5 to 13.5 6 to 12 years ? 11.5 to 15.5 12 to 18 years (female) 12.0 to 16.0 ? (male) ?? 13.0 to 16.0 > 18 years ? (female) 11.2 to 15.7 ? (male) ?? 13.7 to 17.5 Oxyhemoglobin, Arterial 98.6(H) % CERNER MILLENNIUM Carboxyhemoglob in, Arterial 0.3 % [facility] MILLENNI[facility] Comment: Nonsmokers: 0.5-1.5% COHB Smokers: Variable, but usually less than 10% Toxic: 20-30% COHB Lethal: Greater than 60% COHB Methemoglobin, Arterial 0.4 % CERNER MILLENNIUM Na Whole Blood 133(L) mmol/L CERNE R MILLENNIUM K Whole Blood 4.0 mmol/L [facility] MILLENNIUM Comment: Please note: Patients with WBC >100,000 may have falsely elevated Potassium levels. Contact the Clinical Chemistry Laboratory if there are any questions. ICa Whole Blood 1.20 mmol/L [facility]ERN ER MILLENNIUM Comment: Reference Ranges: ?? < 19 yrs: 1.22 - 1.37 mmol/L ? Adults: 1.15 - 1.33 mmol/L Note: ??Total bilirubin higher than 20 mg/dL may lead to falsely low ionized calcium. CL Whole Blood 102 mmol/L [facility]ERNE R MILLENNIUM Gluc Whole Bld 211(H) mg/dL [facility] R MILLENNIUM Comment:Diabetes: >=200 mg/d L plus symptoms. Blood specimen (specimen) 12/05/2011:49 AM EDT 12/05/2011 10:49 AM EDT Kehinde Ramirez MD POINT OF CARE TEST ORDERABLES [facility] * (ABNORMAL) DIFFERENTIAL, MANUAL (12/05/2011 10:45 AM EDT) Segmented Neutrophils Manual 86(H) 34 - 71 % [facility] MILLENNIUM Band % 5 0 - 12 % [facility] MILLENNIUM Lymphocyte Manual 5(L) 19 - 53 % [facility] MILLENNIUM Monocyte Manual 3(L) 4 - 13 % CERN ER MILLENNIUM Eosinophil Manual 1 0 - 7 % C[facility]ER MILLENNIUM Segs Absolute Manual 14.8(H) 1.5 - 6.3 x10(3)/mc L CERNER MILLENNIUM Band Abs 0.9(H) 0.2 - 0.6 x10(3)/mc L CERNER MILLENNIUM ANC 15.71(H) 1.50 - 6.30 x10(3)/mc L [facility] MILLENNIUM Lymph Absolute Manual 0.9(L) 1.0 - 3.6 x10(3)/mc L [facility] MILLENNIUM Monocyte Absolute Manual 0.5 0.2 - 1.0 x10(3)/mc L [facility] MILLENNIUM Eos Absolute Manual 0.2 0.0 - 0.5 x10(3)/mc L [facility] MILLENNIUM Total Cells Ct 100 CERNE R MILLENNIUM Plat estimate Decreased [facility]ER MILLENNIUM RBC Morphology Normal [facility]NE R MILLENNIUM Blood specimen (specimen) 12/05/2011 10:45 AM EDT 12/05/2011 10:51 AM EDT Narrative Resulting Agency Comment Spec In Lab Kehinde Ramirez MD HEMATOLOGY ORDERAB LES [facility] * THROMBIN TIME (12/05/2011 10:45 AM EDT) Thrombin Time 18 15 - 20 sec [facility] MILLENNIUM Blood specimen (specimen) 12/05/2011 10:45 AM EDT 12/05/2011 10:51 AM EDT Narrative Resulting Agency Comment Spec In Lab Kehinde Ramirez MD HEMATOLOGY ORDERAB LES Performing Organization Address [facility] Co de Phone Number [facility] * FIBRINOGEN (12/05/2011 10:45 AM EDT) Fibrinogen 273 220 - 480 mg/dL [facility]ILLEN[facility]UM Comment:Called by: , Read back by: rochelle wall, Date/Time:12/05/11 11:06. Blood specimen (specimen) 12/05/2011 10:45 AM EDT 12/05/2011 10:51 AM EDT Narrative Resulting Agency Comment Spec In Lab Kehinde Ramirez MD HEMATOLOGY ORDERAB LES Performing Organization Address [facility] de Phone Number [facility] * APTT (12/05/2011 10:45 AM EDT) Partial Thromboplastin Time 29 25 - 35 sec [facility]ER MILLENNIUM Comment: Recommended therapeutic PTT range for full dose unfractionated heparin is 80-114 seconds. Blood specimen (specimen) 12/05/2011 10:45 AM EDT 12/05/2011 10:51 AM EDT Narrative Resulting Agency Comment Spec In Lab Kehinde Ramirez MD HEMATOLOGY ORDERAB LES Performing Organization Address [facility] de Phone Number [facility] * (ABNORMAL) PROTHROMBIN TIME (12/05/2011 10:45 AM EDT) Prothrombin Time 17.8(H) 11.9 - 14.7 sec CERNER MILLENNIUM Comment: [facility] Transfusion Committee Guidelines: INR less than 2.0, PTT less than OR equal to 43.5 seconds, or Fibrinogen greater than or equal to 100 mg/dl indicate adequate procoagulant activity for hemostasis in patients without underlying bleeding disorders. International Normalization Ratio 1.4(H) 0.9 - 1.1 CERNER MILLENNIUM Blood specimen (specimen) 12/05/2011 10:45 AM EDT 12/05/2011 10:51 AM EDT Narrative Resulting Agency Comment Spec In Lab Kehinde Ramirez MD HEMATOLOGY ORDERAB LES Performing Organization Address City/[facility]/ZIP Co de Phone Number [facility]ILLENNI[facility] * (ABNORMAL) CBC (WITH DIFF) (12/05/2011 10:45 AM EDT) White Blood Cell 17.3(H) 4.0 - 10.0 x10(3)/mc L CERNER MILLENNIUM Red Blood Cell 2.96(L) 4.63 - 6.08 x10(6)/mc L [facility] MILLENNIUM Hemoglobin 9.9(L) 13.7 - 17.5 gm/dL CERNER MILLENNIUM Hematocrit 27.9(L) 40.0 - 51.0 % CERNER MILLENNIUM Mean Cell Volume 94.3(H) 79.0 - 92.0 fL CERNER MILLENNIUM Mean Cell Hemoglobin 33.4(H) 25.6 - 32.2 pg CERNER MILLENNIUM Mean Cell Hemoglobin Concentration 35.5 32.0 - 36.5 gm/dL CERNER MILLENNIUM Platelet 136(L) 145 - 370 x10(3)/mc L CERNER MILLENNIUM RDW Standard Deviation 44.3 35.0 - 46.0 fL CERNER MILLENNIUM RDW coefficient of variation 13.0 10.9 - 14.4 % CERNER MILLENNIUM Mean Platelet Volume 10.3 9.0 - 12.0 fL CERNER MILLENNIUM Blood specimen (specimen) 12/05/2011 10:45 AM EDT 12/05/2011 10:51 AM EDT Narrative Resulting Agency Comment Spec In Lab Kehinde Ramirez MD HEMATOLOGY ORDERAB LES [facility] * (ABNORMAL) BLOOD GAS 2 ARTERIAL (12/05/2011 10:17 AM EDT) pH, Arterial 7.37 CERNER MILLENNIUM PCO2, Arterial 45 mmHg CERNE R MILLENNIUM PO2, Arterial 141(H) mmHg CERNER MILLENNIUM Bicarbonate, Arterial 25.4 mmol/L CERNER MILLENNIUM Base Excess, Arterial 0.2 mmol/L CERNER MILLENNIUM Hgb Blood Gas 10.1(L) gm/dL CERNER MILLENNIUM Comment: Total Hemoglobin (in gm/dL) ?Based on [facility] Hematology ranges: ?Age ?Reference Range Less than 3 days ?14.5 to 22.5 3 days to 2 weeks ? 12.5 to 20.5 2 weeks to 1 month ?10.0 to 18.0 1 to 6 months ?9.4 to 14.0 6 months to 2 years ? 10.5 to 13.5 2 to 6 years ?11.5 to 13.5 6 to 12 years ? 11.5 to 15.5 12 to 18 years (female) 12.0 to 16.0 ? (male) ?? 13.0 to 16.0 > 18 years ? (female) 11.2 to 15.7 ? (male) ?? 13.7 to 17.5 Oxyhemoglobin, Arterial 98.0(H) % CERNER MILLENNIUM Carboxyhemoglob in, Arterial 0.4 % CERNER MILLENNIUM Comment: Nonsmokers: 0.5-1.5% COHB Smokers: Variable, but usually less than 10% Toxic: 20-30% COHB Lethal: Greater than 60% COHB Methemoglobin, Arterial 0.3 % CERNER MILLENNIUM Na Whole Blood 133(L) mmol/L CERNE R MILLENNIUM K Whole Blood 4.8 mmol/L CERNER MILLENNIUM Comment: Please note: Patients with WBC >100,000 may have falsely elevated Potassium levels. Contact the Clinical Chemistry Laboratory if there are any questions. ICa Whole Blood 1.24 mmol/L CERN ER MILLENNIUM Comment: Reference Ranges: ?? < 19 yrs: 1.22 - 1.37 mmol/L ? Adults: 1.15 - 1.33 mmol/L Note: ??Total bilirubin higher than 20 mg/dL may lead to falsely low ionized calcium. CL Whole Blood 100 mmol/L CERNE R MILLENNIUM Gluc Whole Bld 275(H) mg/dL [facility]ERNE R MILLENNIUM Comment:Diabetes: >=200 mg/d L plus symptoms. Blood specimen (specimen) 12/05/2011 10:17 AM EDT 12/05/2011 10:17 AM EDT Kehinde Ramirez MD POINT OF CARE TEST ORDERABLES [facility] * (ABNORMAL) BLOOD GAS 2 ARTERIAL (12/05/2011 9:42 AM EDT) pH, Arterial 7.32(L) CERNER MILLENNIUM PCO2, Arterial 52(Critica l) mmHg CERNER MILLENNIUM Comment:Noted by surgical instrument mechanic. PO2, Arterial 276(H) mmHg CERNER MILLENNIUM Bicarbonate, Arterial 26.1(H) mmol/L CERNER MILLENNIUM Base Excess, Arterial 0.0 mmol/L CERNER MILLENNIUM Hgb Blood Gas 10.8(L) gm/dL CERNER MILLENNIUM Comment: Total Hemoglobin (in gm/dL) ?Based on [facility] Hematology ranges: ?Age ?Reference Range Less than 3 days ?14.5 to 22.5 3 days to 2 weeks ? 12.5 to 20.5 2 weeks to 1 month ?10.0 to 18.0 1 to 6 months ?9.4 to 14.0 6 months to 2 years ? 10.5 to 13.5 2 to 6 years ?11.5 to 13.5 6 to 12 years ? 11.5 to 15.5 12 to 18 years (female) 12.0 to 16.0 ? (male) ?? 13.0 to 16.0 > 18 years ? (female) 11.2 to 15.7 ? (male) ?? 13.7 to 17.5 Oxyhemoglobin, Arterial 98.7(H) % CERNER MILLENNIUM Carboxyhemoglob in, Arterial 0.1 % CERNER MILLENNIUM Comment: Nonsmokers: 0.5-1.5% COHB Smokers: Variable, but usually less than 10% Toxic: 20-30% COHB Lethal: Greater than 60% COHB Methemoglobin, Arterial 0.2 % CERNER MILLENNIUM Na Whole Blood 129(L) mmol/L CERNE R MILLENNIUM K Whole Blood 5.7(H) mmol/L CERNER MILLENNIUM Comment: Please note: Patients with WBC >100,000 may have falsely elevated Potassium levels. Contact the Clinical Chemistry Laboratory if there are any questions. ICa Whole Blood 1.02(L) mmol/L CERN ER MILLENNIUM Comment: Reference Ranges: ?? < 19 yrs: 1.22 - 1.37 mmol/L ? Adults: 1.15 - 1.33 mmol/L Note: ??Total bilirubin higher than 20 mg/dL may lead to falsely low ionized calcium. CL Whole Blood 97(L) mmol/L CERNE R MILLENNIUM Gluc Whole Bld 278(H) mg/dL CERNE R MILLENNIUM Comment:Diabetes: >=200 mg/d L plus symptoms. Blood specimen (specimen) 12/05/2011 9:42 AM EDT 12/05/2011 9:42 AM EDT Kehinde Ramirez MD POINT OF CARE TEST ORDERABLES [facility]USHAL[facility] * FIBRINOGEN (12/05/2011 9:35 AM EDT) Fibrinogen 283 220 - 480 mg/dL CERNER MILLENNIUM Comment:Called by: wu, Read back by: rochelle wall, Date/Time:12/05/11 10:12. Blood specimen (specimen) 12/05/2011 9:35 AM EDT 12/05/2011 9:45 AM EDT Narrative Resulting Agency Comment Spec In Lab Kehinde Ramirez MD HEMATOLOGY ORDERAB LES Performing Organization Address [facility] de Phone Number [facility] * PLATELET COUNT (12/05/2011 9:35 AM EDT) Platelet 169 145 - 370 x10(3)/mcL [facility] FATIM[facility] Blood specimen (specimen) 12/05/2011 9:35 AM EDT 12/05/2011 9:44 AM EDT Narrative Resulting Agency Comment Spec In Lab Kehinde Ramirez MD HEMATOLOGY ORDERAB LES Performing Organization Address [facility] Phone Number [facility] SANC[facility] * Specimen to Pathology (surgical or derm) (12/05/2011 9:30 AM EDT) AP Specimen 12/05/2011 9:30 AM EDT 12/05/2011 9:30 AM EDT Narrative EFREM FATIMAIUM - 12/05/2011 9:30 AM EDT Specimen requisition ordered. ??Separate Pathology report to follow Kehinde Ramirez MD PATHOLOGY/CYTOLOGY ORDERABLES Performing Organization Address [facility] Phone Number EFREM SANCHEZ * Prepare Coag Factors (Non-Hemophilia) (12/05/2011 9:20 AM EDT) Dispensed? Yes EFREM SANCHEZ Blood specimen (specimen) 12/05/2011 9:20 AM EDT 12/05/2011 9:19 AM EDT Kehinde Ramirez MD BLOOD BANK PRODUCT ORDERABLES Performing Organization Address [facility] Co de Phone Number EFREM SANCHEZ * (ABNORMAL) BLOOD GAS 2 ARTERIAL (12/05/2011 9:06 AM EDT) pH, Arterial 7.40 CERNER MILLENNIUM PCO2, Arterial 39 mmHg CERNE R MILLENNIUM PO2, Arterial 350(H) mmHg CERNER MILLENNIUM Bicarbonate, Arterial 23.5 mmol/L CERNER MILLENNIUM Base Excess, Arterial -1.3 mmol/L CERNER MILLENNIUM Hgb Blood Gas 8.8(L) gm/dL CERNER MILLENNIUM Comment: Total Hemoglobin (in gm/dL) ?Based on [facility] Hematology ranges: ?Age ?Reference Range Less than 3 days ?14.5 to 22.5 3 days to 2 weeks ? 12.5 to 20.5 2 weeks to 1 month ?10.0 to 18.0 1 to 6 months ?9.4 to 14.0 6 months to 2 years ? 10.5 to 13.5 2 to 6 years ?11.5 to 13.5 6 to 12 years ? 11.5 to 15.5 12 to 18 years (female) 12.0 to 16.0 ? (male) ?? 13.0 to 16.0 > 18 years ? (female) 11.2 to 15.7 ? (male) ?? 13.7 to 17.5 Oxyhemoglobin, Arterial 98.8(H) % CERNER MILLENNIUM Carboxyhemoglob in, Arterial 0.1 % CERNER MILLENNIUM Comment: Nonsmokers: 0.5-1.5% COHB Smokers: Variable, but usually less than 10% Toxic: 20-30% COHB Lethal: Greater than 60% COHB Methemoglobin, Arterial 0.2 % CERNER MILLENNIUM Na Whole Blood 125(L) mmol/L CERNE R MILLENNIUM K Whole Blood 5.2(H) mmol/L CERNER MILLENNIUM Comment: Please note: Patients with WBC >100,000 may have falsely elevated Potassium levels. Contact the Clinical Chemistry Laboratory if there are any questions. ICa Whole Blood 0.90(Criti reyna) mmol/L CERNER MILLENNIUM Comment: Noted by surgical instrument mechanic. Reference Ranges: ?? < 19 yrs: 1.22 - 1.37 mmol/L ? Adults: 1.15 - 1.33 mmol/L Note: ??Total bilirubin higher than 20 mg/dL may lead to falsely low ionized calcium. CL Whole Blood 96(L) mmol/L CERNE R MILLENNIUM Gluc Whole Bld 208(H) mg/dL CERNE R MILLENNIUM Comment:Diabetes: >=200 mg/d L plus symptoms. Blood specimen (specimen) 12/05/2011 9:06 AM EDT 12/05/2011 9:06 AM EDT Kehinde Ramirez MD POINT OF CARE TEST ORDERABLES CERNER MILLENNIUM * (ABNORMAL) BLOOD GAS 2 ARTERIAL (12/05/2011 8:13 AM EDT) pH, Arterial 7.40 CERNER MILLENNIUM PCO2, Arterial 41 mmHg CERNE R MILLENNIUM PO2, Arterial 454(H) mmHg CERNER MILLENNIUM Bicarbonate, Arterial 25.1 mmol/L CERNER MILLENNIUM Base Excess, Arterial 0.3 mmol/L CERNER MILLENNIUM Hgb Blood Gas 12.6(L) gm/dL CERNER MILLENNIUM Comment: Total Hemoglobin (in gm/dL) ?Based on [facility] Hematology ranges: ?Age ?Reference Range Less than 3 days ?14.5 to 22.5 3 days to 2 weeks ? 12.5 to 20.5 2 weeks to 1 month ?10.0 to 18.0 1 to 6 months ?9.4 to 14.0 6 months to 2 years ? 10.5 to 13.5 2 to 6 years ?11.5 to 13.5 6 to 12 years ? 11.5 to 15.5 12 to 18 years (female) 12.0 to 16.0 ? (male) ?? 13.0 to 16.0 > 18 years ? (female) 11.2 to 15.7 ? (male) ?? 13.7 to 17.5 Oxyhemoglobin, Arterial 99.1(H) % CERNER MILLENNIUM Carboxyhemoglob in, Arterial 0.3 % CERNER MILLENNIUM Comment: Nonsmokers: 0.5-1.5% COHB Smokers: Variable, but usually less than 10% Toxic: 20-30% COHB Lethal: Greater than 60% COHB Methemoglobin, Arterial 0.1 % CERNER MILLENNIUM Na Whole Blood 137 mmol/L CERNE R MILLENNIUM K Whole Blood 4.2 mmol/L CERNER MILLENNIUM Comment: Please note: Patients with WBC >100,000 may have falsely elevated Potassium levels. Contact the Clinical Chemistry Laboratory if there are any questions. ICa Whole Blood 1.18 mmol/L CERN ER MILLENNIUM Comment: Reference Ranges: ?? < 19 yrs: 1.22 - 1.37 mmol/L ? Adults: 1.15 - 1.33 mmol/L Note: ??Total bilirubin higher than 20 mg/dL may lead to falsely low ionized calcium. CL Whole Blood 101 mmol/L CERNE R MILLENNIUM Gluc Whole Bld 112 mg/dL CERNE R MILLENNIUM Comment:Diabetes: >=200 mg/d L plus symptoms. Blood specimen (specimen) 12/05/2011 8:13 AM EDT 12/05/2011 8:13 AM EDT Kehinde Ramirez MD POINT OF CARE TEST ORDERABLES Performing Organization Address City/State/[facility] Co de Phone Number CERMAGGY MILLENNIUM * Prepare RBC (12/05/2011 6:35 AM EDT) Dispensed? Yes CERNER MILLENNIUM Blood specimen (specimen) 12/05/2011 6:35 AM EDT 12/05/2011 6:32 AM EDT Kehinde Ramirez MD BLOOD BANK PRODUCT ORDERABLES EFREM SANCHEZ * POCT GLUCOSE LAB USE ONLY (12/05/2011 6:24 AM EDT) Glucose, POC 110 60 - 199 mg/dL EFREM SANCHEZ Comment: Supplemental ranges: <110 mg/dL before meals <200 mg/dL all other times of the day Blood specimen (specimen) 12/05/2011 6:24 AM EDT 12/05/2011 6:24 AM EDT Kehinde Ramirez MD POINT OF CARE TEST ORDERABLES EFREM SANCHEZ documented in this encounter Visit Diagnoses Diagnosis Aortic stenosis Aortic valve disorders Aortic stenosis Aortic valve disorders Aortic stenosis Aortic valve disorders documented in this encounter Administered Medications Inactive Administered Medications - up to 3 most recent administrations Medication Order MAR Action Action Date Dose Rate Site acetaminophen (TYLENOL) tablet 1,000 mg 1,000 mg, Oral, EVERY 6 HOURS SCHEDULED, First dose on Deborah 12/05/11 at 1230, Until Discontinued, For pain when taking by mouth , Routine Given 12/09/2011 12:37 PM EDT 1,000 mg Given 12/09/2011 6:40 AM EDT 1,000 mg Given 12/09/2011 12:45 AM EDT 1,000 mg albumin human 25 % 50 mL bottle Intravenous, ONCE, 1 dose, On Deborah 12/05/11 at 1230, PRN as needed for volume replacement to maintain cardiac index greater than or equal to 2.0 L/min/M2, Recovery (Recovery-Hospital Unit), STAT Given 12/05/2011 1:00 PM EDT g aminocaproic acid (AMICAR) 3g (CT Surg ONLY) in dextrose 5% 150 mL infusion 3 g, Intravenous, at 50 mL/hr, ONCE, On Deborah 12/05/11 at 1300, 1 dose, Do not exceed 30 g in 24 hours. New Bag 12/05/2011 1:00 PM EDT 3 g 50 mL/hr AMIOdarone (CORDARONE; PACERONE) tablet 400 mg 400 mg, Oral, DAILY, First dose on Fri12/06/11 at 1200, Until Discontinued, Routine Given 12/09/2011 8:19 AM EDT 400 mg Given 12/08/2011 8:55 AM EDT 400 mg Given 12/07/2011 9:25 AM EDT 400 mg AMIOdarone 450 mg in dextrose 5% 250 mL Infusion 0.5-1 mg/min (rounded to 16.7-33.3 mL/hr), Intravenous, CONTINUOUS, Starting on Fri12/05/11 at 1300, Until Fri12/05/11 at 1703, Initiate loading infusion (slow): 1 mg/minute over 6 hours (pump rate= 33 mL/hour), then decrease to maintenance Infusion: 0.5 mg/minute over 18 hours (pump rate= 17 mL/hour). At 24 hours from start time, call MD regarding infusion or change to oral dosing. Rate/Dose Verify 12/05/2011 5:00 PM EDT 0.999 mg/min 33.3 mL/hr Rate/Dose Verify 12/05/2011 4:00 PM EDT 0.999 mg/min 33.3 mL/hr Rate/Dose Verify 12/05/2011 2:00 PM EDT 0.999 mg/min 33.3 mL/hr AMIOdarone 450 mg in dextrose 5% 250 mL Infusion 0.5-1 mg/min (rounded to 16.7-33.3 mL/hr), Intravenous, CONTINUOUS, Starting on Fri12/05/11 at 1730, Until Fri12/06/11 at 1433, Initiate loading infusion (slow): 1 mg/minute over 6 hours (pump rate= 33 mL/hour), then decrease to maintenance Infusion: 0.5 mg/minute over 18 hours (pump rate= 17 mL/hour). At 24 hours from start time, call MD regarding infusion or change to oral dosing. New Bag 12/06/2011 10:00 AM EDT 0.5 mg/min 16.7 mL/hr Rate/Dose Verify 12/06/2011 6:00 AM EDT 0.501 mg/min 16.7 mL/hr Rate/Dose Verify 12/06/2011 12:00 AM EDT 0.501 mg/min 16.7 mL/hr aspirin chewable tablet 81 mg 81 mg, Oral, DAILY, First dose on Fri12/06/11 at 0900, Until Discontinued, Start on post-op day 1 in the AM., Routine Given 12/09/2011 8:17 AM EDT 81 mg Given 12/08/2011 8:54 AM EDT 81 mg Given 12/07/2011 9:23 AM EDT 81 mg ceFURoxime (ZINACEF) 750mg vial attach to sodium chloride 0.9% 100 mL Mini-Bag Plus 750 mg, Intravenous, EVERY 8 HOURS, 3 doses, First dose on Fri12/05/11 at 1900, Last dose on Fri12/06/11 at 1100, Administer over 60 Minutes, Attach to 100 mL sodium Chloride Mini-bag Plus. Give first dose at 8 hours after dose in operating room., Indication for (Active or Suspected): Prophylaxis Given 12/06/2011 11:00 AM EDT 750 mg 100 mL /hr Given 12/06/2011 3:00 AM EDT 750 mg 100 mL/hr Given 12/05/2011 7:00 PM EDT 750 mg 100 mL/hr chlorhexidine (PERIDEX) 0.12 % oral solution 15 mL 15 mL, Oral, EVERY 12 HOURS SCHEDULED (2 times per day), First dose on Fri12/05/11 at 1300, Until Discontinued, [place] teeth., Routine Given 12/08/2011 9:00 PM EDT 15 mLs Given 12/07/2011 9:00 PM EDT 15 mLs Given 12/06/2011 9:00 PM EDT 15 mLs esomeprazole (NEXIUM) capsule 40 mg 40 mg, Oral, DAILY, First dose on Fri12/06/11 at 0900, Until Discontinued, If unable to take PO, may give IV, Routine Given 12/09/2011 8:19 AM EDT 40 mg Given 12/08/2011 8:54 AM EDT 40 mg Given 12/07/2011 9:25 AM EDT 40 mg fentaNYL 2500mcg/50mL infusion 0-100 mcg/hr (rounded to 0-2 mL/hr), Intravenous, CONTINUOUS, Starting on Fri12/05/11 at 1230, Until Fri12/06/11 at 1104, Titrate to patient comfort. Dose not to exceed 100 mcg/hour Rate/Dose Verify 12/06/2011 6:00 AM EDT 50 mcg/hr 1 mL/hr Rate/Dose Verify 12/06/2011 12:00 AM EDT 50 mcg/hr 1 mL/h r Rate/Dose Verify 12/05/2011 10:00 PM EDT 50 mcg/hr 1 mL/h r fentaNYL 50mcg/mL injection 25 mcg, Intravenous, EVERY 10 MIN PRN, Starting on Deborah 12/05/11 at 1202, Until Fri12/06/11 at 1104, Pain, For breakthrough pain while intubated. Maximum dose 300 mcg over one hour., Routine Given 12/06/2011 12:00 AM EDT 25 mcg fentaNYL 50mcg/mL injection 25-50 mcg, Intravenous, EVERY 1 HOUR PRN, Starting on Deborah 12/05/11 at 1202, Until Fri12/06/11 at 1104, Pain, For pain when extubated., Routine Bolus from Bag 12/06/2011 7:51 AM EDT 50 mcg furosemide (LASIX) injection 20 mg 20 mg, Intravenous, 2 TIMES DAILY, First dose on Fri12/06/11 at 1130, Until Discontinued Given 12/09/2011 8:24 AM EDT 20 mg Given 12/08/2011 5:00 PM EDT 20 mg Given 12/08/2011 8:54 AM EDT 20 mg granisetron (KYTRIL) injection 1 mg 1 mg, Intravenous, DAILY PRN, Starting on Deborah 12/05/11 at 1205, Until Fri12/09/11 at 1506, nv, Routine Given 12/05/2011 11:40 PM EDT 1 mg insulin aspart (NOVOLOG) PEN injection 3-6 Units 3-6 Units, Subcutaneous, 3 TIMES DAILY WITH MEALS, First dose on Deborah 12/05/11 at 1700, Until Discontinued, If 50% or less of the meal is eaten, give 3 units immediately following the meal. If more than 50% of the meal is eaten, give 6 units immediately following the meal., Routine Given 12/07/2011 9:26 AM EDT 3 Units insulin regular human (HUMULIN;NOVOLIN) 150 Units in sodium chloride 0.9% 150 mL infusion 0.5-16 Units/hr (rounded to 0.5-16 mL/hr), Intravenous, CHANGE BAG EVERY EVENING, First dose on Deborah 12/05/11 at 1300, Until Discontinued, Type 2 diabetes. Current blood glucose 140 - 179 Titration- aim for target range of 140 - 180 mg/dL. Check BG every hour unless otherwise indicated. [[ No initial bolus. Begin continuous infusion at 2 units/hour. ]] Current BG less than 80 - Stop insulin, give juice or D50 per protocol. Re-check BG in 30 minutes and as soon as BG is greater than 80, restart with rate 50% of previous rate. If previous rate had been 0.5 units/hour, restart at 0.5 units/hour when BG greater than 100. Current BG 80 - 139 - If BG dropped 10 mg/dL or more since last test, decrease rate by 50% and re-check in 30 minutes. Otherwise, decrease rate by 0.5 units/hour. Current BG 140 - 180 - If BG dropped 50 mg/dL or more since last test, decrease rate by 1 unit/hour. Otherwise, maintain same rate. Current BG 181 - 220 - If BG is lower than last test, maintain same rate. Otherwise, increase rate by 0.5 units/hour. Current BG 221 - 250 - If BG dropped 30 mg/dL or more since last test, maintain same rate. Otherwise, increase rate by 1 unit/hour. Current BG greater than 250 - Increase rate by 1 unit/hour AND bolus with Regular insulin IV as per IV Bolus Scale. Re-check BG in 30 minutes. Rate/Dose Verify 12/06/2011 4:00 PM EDT 1.5 Units/hr 1.5 mL/hr Rate/Dose Verify 12/06/2011 12:00 PM EDT 1.5 Units/hr 1.5 mL/hr Rate/Dose Verify 12/06/2011 10:00 AM EDT 1.5 Units/hr 1.5 mL/hr lactated ringers infusion 100 mL/hr, Intravenous, CONTINUOUS, Starting on Deborah 12/05/11 at 0715, Until Deborah 12/05/11 at 1202, Day of Surgery (Day of Procedure) New Bag 12/05/2011 7:15 AM EDT 100 mL/hr 100 mL/hr magnesium hydroxide (MILK OF MAGNESIA) oral suspension 10 mL 10 mL, Oral, DAILY, First dose on 12/07/11 at 0900, Until Discontinued, Post-op day 2. Do not use with renal insufficiency., Routine Given 12/07/2011 4:27 PM EDT 10 mLs metoprolol (LOPRESSOR) tablet 12.5 mg 12.5 mg, Oral, EVERY 12 HOURS SCHEDULED (2 times per day), First dose on Fri12/06/11 at 2100, Until Discontinued, Hold for SBP < 90; HR 55, Routine Given 12/07/2011 9:25 AM EDT 12.5 mg Given 12/06/2011 9:00 PM EDT 12.5 mg metoprolol tartrate (LOPRESSOR) tablet 25 mg 25 mg, Oral, EVERY 12 HOURS SCHEDULED (2 times per day), First dose (after last modification) on Fri12/07/11 at 2100, Until Discontinued, Hold for SBP < 90; HR 55, Routine Given 12/09/2011 8:19 AM EDT 25 mg Given 12/08/2011 9:00 PM EDT 25 mg Given 12/08/2011 8:54 AM EDT 25 mg multivitamin (THERAGRAN) tablet 1 tablet 1 tablet, Oral, DAILY, First dose on Fri12/06/11 at 1530, Until Discontinued Given 12/09/2011 8:19 AM EDT 1 tablet Given 12/08/2011 8:54 AM EDT 1 tablet Given 12/07/2011 9:25 AM EDT 1 tablet OXYcodone (ROXICODONE) immediate release tablet 5-10 mg 5-10 mg, Oral, EVERY 4 HOURS PRN, Starting on Fri12/05/11 at 1206, Until Fri12/09/11 at 1506, Pain, For pain when taking by mouth., Routine Given 12/07/2011 9:00 PM EDT 5 mg Given 12/07/2011 4:58 AM EDT 5 mg Given 12/06/2011 9:35 PM EDT 5 mg PHENYLephrine (MANUEL-SYNEPHRINE) 20 mg in sodium chloride 250 mL infusion 0-200 mcg/min (rounded to 0-150 mL/hr), Intravenous, CONTINUOUS, Starting on Fri12/05/11 at 1230, Until Fri12/06/11 at 1104, Titrate to keep systolic blood pressure greater than 90 mmHg.Dose not to exceed 200 mcg/minute., Routine Rate/Dose Verify 12/06/2011 6:00 AM EDT 30 mcg/min 22.5 mL/hr Rate/Dose Verify 12/06/2011 12:00 AM EDT 30 mcg/min 22.5 m L/hr Rate/Dose Verify 12/05/2011 10:00 PM EDT 30 mcg/min 22.5 m L/hr potassium chloride (K-DUR) tablet 10 mEq 10 mEq, Oral, 2 TIMES DAILY, First dose on Fri12/06/11 at 1145, Until Discontinued, Routine Given 12/06/2011 9:00 PM EDT 10 mEq potassium chloride (K-DUR) tablet 10 mEq 10 mEq, Oral, 2 TIMES DAILY, First dose (after last modification) on Fri12/08/11 at 0900, Until Discontinued, Routine Given 12/09/2011 8:19 AM EDT 10 mEq Given 12/08/2011 9:00 PM EDT 10 mEq Given 12/08/2011 8:54 AM EDT 10 mEq potassium chloride (K-DUR) tablet 30 mEq 30 mEq, Oral, ONCE, 1 dose, On Fri12/09/11 at 0815, Routine Given 12/09/2011 8:19 AM EDT 30 mEq propofol (DIPRIVAN) 10 mg/mL infusion 1 dose, Starting on Deborah 12/05/11 at 1337, Until Deborah 12/05/11 at 1345, NO PIERSON: Cabinet Override propofol (DIPRIVAN) infusion 0-50 mcg/kg/min ? 109.6 kg (rounded to 0-32.9 mL/hr), Intravenous, CONTINUOUS, Starting on Deborah 12/05/11 at 1230, Until Fri12/06/11 at 1104, Titrate to sedation level of RASS -1. Dose not to exceed 50 mcg/kg/minute. Discontinue upon extubation., Routine Rate/Dose Verify 12/05/2011 2:00 PM EDT 29.957 mcg/kg/min 19.7 mL/hr New Bag 12/05/2011 1:45 PM EDT 30 mcg/kg/min 19.7 mL/hr Rate/Dose Change 12/05/2011 12:30 PM EDT 40 mcg/kg/min 26. 3 mL/hr senna-docusate (PERICOLACE) 8.6-50 mg per tablet 2 tablet 2 tablet, Oral, DAILY, First dose on Fri12/06/11 at 2100, Until Discontinued, Post-op day 1, Routine Given 12/07/2011 9:00 PM EDT 2 tablets Given 12/06/2011 9:00 PM EDT 2 tablets simvastatin (ZOCOR) tablet 20 mg 20 mg, Oral, EVERY EVENING, First dose on Fri12/06/11 at 1700, Until Discontinued, Routine Given 12/08/2011 5:00 PM EDT 20 mg Given 12/07/2011 5:30 PM EDT 20 mg Given 12/06/2011 5:00 PM EDT 20 mg sodium chloride 0.9 % flush 5 mL 5 mL, Intravenous, EVERY 8 HOURS, First dose on Fri12/06/11 at 1500, Until Discontinued Given 12/09/2011 6:40 AM EDT 5 mLs Given 12/09/2011 12:45 AM EDT 5 mLs Given 12/08/2011 3:00 PM EDT 5 mLs sodium chloride 0.9% infusion 0-500 mL/hr, Intravenous, CONTINUOUS, Starting on Fri12/05/11 at 1245, Until Fri12/08/11 at 1018, As needed for volume replacement to maintain cardiac index greater than or equal to 2.0 L/min/M2. Call boiler house operator for additional fluid orders: pager #[phone]. Rate/Dose Verify 12/05/2011 7:00 PM EDT 250 mL/hr 250 mL/hr Rate/Dose Verify 12/05/2011 6:00 PM EDT 250 mL/hr 250 mL/ hr Rate/Dose Verify 12/05/2011 5:00 PM EDT 250 mL/hr 250 mL/ hr sodium chloride 0.9% infusion 10-30 mL/hr, Intravenous, DAILY PRN, Starting on Fri12/05/11 at 1202, Until Fri12/06/11 at 1104, Side port TKO rate Rate/Dose Verify 12/05/2011 7:00 PM EDT 50 mL/hr 50 mL/hr Rate/Dose Verify 12/05/2011 6:00 PM EDT 50 mL/hr 50 mL/h r Rate/Dose Verify 12/05/2011 5:00 PM EDT 50 mL/hr 50 mL/h r sodium chloride 0.9% infusion 10-30 mL/hr, Intravenous, DAILY PRN, Starting on Fri12/05/11 at 1202, Until Fri12/06/11 at 1104, Side port TKO rate Rate/Dose Verify 12/06/2011 10:00 AM EDT 30 mL/hr 30 mL/hr Rate/Dose Verify 12/06/2011 6:00 AM EDT 30 mL/hr 30 mL/h r Rate/Dose Verify 12/06/2011 12:00 AM EDT 30 mL/hr 30 mL/ hr documented in this encounter Active and Recently Administered Medications Times are shown in EDT. Scheduled Medication Order 12/07/2011 12/08/2011 12/09/2011 acetaminophen (TYLENOL) tablet 1,000 mg 1,000 mg, Oral, EVERY 6 HOURS SCHEDULED, First dose on Deborah 12/05/11 at 1230, Until Discontinued, For pain when taking by mouth , Routine 0000 (Given - Provider: Wiley Laughlin RN)0600 (Given - Provider: Wiley Laughlin RN)1154 (Given - Provider: Nuno Thomas RN)1806 (Given - Provider: Nuno Thomas RN) 0000 (Given - Provider: Wiley Laughlin RN)0600 (Given - Provider: Wiley Laughlin RN)1200 (Given - Provider: Hayde Arce, JAMIN)2011 (Given - Provider: Hayde Arce RN) 0045 (Given - Provider: Stephani Schwab RN)0640 (Given - Provider: Stephani Schwab RN)1237 (Given - Provider: Nuno Thomas, JAMIN) AMIOdarone (CORDARONE; PACERONE) tablet 400 mg 400 mg, Oral, DAILY, First dose on Fri12/06/11 at 1200, Until Discontinued, Routine 0925 (Given - Provider: Nuno Thomas RN - Comment: 0.45) 0855 (Given - Provider: Joss García RN) 0819 (Given - Provider: Nuno Thomas RN - Comment: Qtc 0.49) aspirin chewable tablet 81 mg (CANCELED)(Linked Group 1) 81 mg, Oral, DAILY, First dose on Fri12/06/11 at 0900, Until Discontinued, Start on post-op day 1 in the AM., Routine 0923 (Given - Provider: Nuno Thomas RN) 0854 (Given - Provider: Joss García RN) 0817 (Given - Provider: Nuno Thomas RN) chlorhexidine (PERIDEX) 0.12 % oral solution 15 mL (CANCELED) 15 mL, Oral, EVERY 12 HOURS SCHEDULED (2 times per day), First dose on Fri12/05/11 at 1300, Until Discontinued, [place] teeth., Routine 0900 (Not Given - Provider: Nuno Thomas RN - Reason: Medication not available)2100 (Given - Provider: Wiley Laughlin RN) 0900 (Not Given - Provider: Joss García RN - Reason: Patient/family refused)2100 (Given - Provider: Hayde Arce, JAMIN) 0900 (Not Given - Provider: Nuno Thomas RN - Reason: Medication not available) esomeprazole (NEXIUM) capsule 40 mg (CANCELED)(Linked Group 2) 40 mg, Oral, DAILY, First dose on Fri12/06/11 at 0900, Until Discontinued, If unable to take PO, may give IV, Routine 0925 (Given - Provider: Nuno Thomas RN) 0854 (Given - Provider: Joss García RN) 0819 (Given - Provider: Nuno Thomas RN) furosemide (LASIX) injection 20 mg (CANCELED) 20 mg, Intravenous, 2 TIMES DAILY, First dose on Fri12/06/11 at 1130, Until Discontinued 0936 (Given - Provider: Nuno Thomas RN)1730 (Given - Provider: Nuno Thomas RN) 0854 (Given - Provider: Joss García, JAMIN)1700 (Given - Provider: Hayde Arce, JAMIN) 0824 (Given - Provider: Nuno Thomas RN) insulin aspart (NOVOLOG) PEN injection 3-6 Units (CANCELED) 3-6 Units, Subcutaneous, 3 TIMES DAILY WITH MEALS, First dose on Fri12/05/11 at 1700, Until Discontinued, If 50% or less of the meal is eaten, give 3 units immediately following the meal. If more than 50% of the meal is eaten, give 6 units immediately following the meal., Routine 09 (Given - Provider: Nuno Thomas RN) magnesium hydroxide (MILK OF MAGNESIA) oral suspension 10 mL (CANCELED) 10 mL, Oral, DAILY, First dose on Fri12/07/11 at 0900, Until Discontinued, Post-op day 2. Do not use with renal insufficiency., Routine 0900 (Not Given - Provider: Nuno Thomas RN - Reason: Medication not available)1627 (Given - Provider: Nuno Thomas RN) 0900 (Not Given - Provider: Joss García RN - Reason: Medication not available) 0816 (Not Given - Provider: Nuno Thomas RN - Reason: Patient/family refused) metoprolol (LOPRESSOR) tablet 12.5 mg (CANCELED) 12.5 mg, Oral, EVERY 12 HOURS SCHEDULED (2 times per day), First dose on Fri12/06/11 at 2100, Until Discontinued, Hold for SBP < 90; HR 55, Routine 0925 (Given - Provider: Nuno Thomas RN) metoprolol tartrate (LOPRESSOR) tablet 25 mg 25 mg, Oral, EVERY 12 HOURS SCHEDULED (2 times per day), First dose (after last modification) on Fri12/07/11 at 2100, Until Discontinued, Hold for SBP < 90; HR 55, Routine 2100 (Given - Provider: Wiley Laughlin RN) 0854 (Given - Provider: Joss García RN)2100 (Given - Provider: Hayde Arce RN) 0819 (Given - Provider: Nuno Thomas RN) multivitamin (THERAGRAN) tablet 1 tablet (CANCELED) 1 tablet, Oral, DAILY, First dose on Fri12/06/11 at 1530, Until Discontinued 0925 (Given - Provider: Nuno Thomas RN) 0854 (Given - Provider: Joss García RN) 0819 (Given - Provider: Nuno Thomas RN) potassium chloride (K-DUR) tablet 10 mEq (CANCELED) 10 mEq, Oral, 2 TIMES DAILY, First dose (after last modification) on Fri12/08/11 at 0900, Until Discontinued, Routine 0854 (Given - Provider: Joss García RN)2099 (Given - Provider: Hayde Arce, JAMIN) 0819 (Given - Provider: Nuno Thomas RN) potassium chloride (K-DUR) tablet 30 mEq (COMPLETED) 30 mEq, Oral, ONCE, 1 dose, On Fri12/09/11 at 0815, Routine 0819 (Given - Provider: Nuno Thomas RN) senna-docusate (PERICOLACE) 8.6-50 mg per tablet 2 tablet 2 tablet, Oral, DAILY, First dose on Fri12/06/11 at 2100, Until Discontinued, Post-op day 1, Routine 2100 (Given - Provider: Wiley Laughlin RN) 2100 (Not Given - Provider: Hayde Arce, JAMIN - Reason: Order parameters not met) simvastatin (ZOCOR) tablet 20 mg 20 mg, Oral, EVERY EVENING, First dose on Fri12/06/11 at 1700, Until Discontinued, Routine 1730 (Given - Provider: Nuno Thomas RN) 1700 (Given - Provider: Hayde Arce, JAMIN) sodium chloride 0.9 % flush 5 mL (CANCELED) 5 mL, Intravenous, EVERY 8 HOURS, First dose on Fri12/06/11 at 1500, Until Discontinued 0600 (Given - Provider: Wiley Laughlin RN)1400 (Given - Provider: Nuno Thomas, JAMIN)2300 (Given - Provider: Wiley Laughlin RN) 0854 (Given - Provider: Joss García RN)1500 (Given - Provider: Hayde Arce RN) 0045 (Given - Provider: Stephani Schwab, JAMIN)0640 (Given - Provider: Stephani Schwab, JAMIN) PRN Medication Order 12/07/2011 12/08/2011 12/09/2011 OXYcodone (ROXICODONE) immediate release tablet 5-10 mg 5-10 mg, Oral, EVERY 4 HOURS PRN, Starting on Deborah 12/05/11 at 1206, Until Fri12/09/11 at 1506, Pain, For pain when taking by mouth., Routine 0458 (Given - Provider: Wiley Laughlin RN)2100 (Given - Provider: Wiley Laughlin RN) Linked Groups Order Group 1: aspirin chewable tablet 81 mg (CANCELED)Jump to med 81 mg, Oral, DAILY, First dose on Fri12/06/11 at 0900, Until Discontinued, Start on post-op day 1 in the AM., Routine Or aspirin suppository 300 mg (CANCELED) 300 mg, Rectal, DAILY, First dose on Fri12/06/11 at 0900, Until Discontinued, Start on post-op day 1 in the AM, Routine Group 2: esomeprazole (NEXIUM) capsule 40 mg (CANCELED)Jump to med 40 mg, Oral, DAILY, First dose on Fri12/06/11 at 0900, Until Discontinued, If unable to take PO, may give IV, Routine Or esomeprazole (NEXIUM) injection 40 mg (CANCELED) 40 mg, Intravenous, DAILY, First dose on Fri12/06/11 at 0900, Until Discontinued, Routine documented in this encounter Care Teams 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
--- OUTSIDE RECORDS SUMMARY | 2024-01-09 01:27 | XMS_ITS | Encounter Summary ---
[place] [address] Care Team Providers Care Used Car Renovator Name Role Phone Kristian Machuca MD Primary Care Provider [phone] Encounter Details Date Type Department Care Team (Late st Contact Info) Description 12/05/2011 7:30 AM EDT - 12/05/2011 12:39 PM EDT Surgery [place] [address] Erinn Ramirez MD [facility] DR [place] [address] @REPLACE AORTIC VALVE, OPEN, W\CPB, W\PROSTHETIC VALVE (WRVU 41.32) Social History Tobacco Use Types Packs/Day Years [...] from your chest incision. Your surgeon, Dr. Erinn Ramirez and/or the Cardiac Surgery Physician Rubber Tile Floor Layer Team may be reached at . Antibiotic prophylaxis: You will need to take antibiotics prior to many invasive tests and treatments, such as dental cleaning, which should be done every 6 months. Your primary care physician or your dentist can prescribe this medication. Please refer to the card with the [place] [employer] Guidelines for more information. You have been provided with 3 copies of this card. Keep one for your self. Give one to your primary care physician and one to your dentist. Please refer to the [place] [employer] Guidelines for more information. Activity [...] until after your return appointment with Dr. Erinn Ramirez. You may use a [place] Track or treadmill but avoid any pulling [...] friends, go to a movie, go to temple, etc. Heavy activities: No hunting, skiing, jogging, [...] should resume a low fat, low cholesterol, [place] [employer] Diet. Driving: No driving for [...] will return to clinic to see Dr. Erinn Ramirez in 4 weeks and will have a CXR,EKG, and ECHO at that time. A letter will be mailed to you with your appointment information. Cardiac Rehabilitation: Maribell Kauffman Sr. was seen regarding participation in outpatient Phase 2 Cardiac Rehabilitation at [facility]. A referral will be sent to this program. The patient was given contact information and should expect to be contacted by the program within 1-2 weeks after discharge from [facility]. Home oxygen therapy: N/A documented in this [...] - 12/09/2011 1:00 PM EDT IV and suture winder hand removed. AVS and discharge summary reviewed with patient by MANA Nguyen. Narcotic Rx in hand. Ambulated patient to [facility]. Patient transported to home via private car. Report called to visiting nurse * Girma Michael RN - 12/09/2011 10:52 AM EDT Office of Care Management (OCM) / Clinical Starting Sheet Tank Operator (CRC)/ Initial Assessment Discussed patient with Provider [...] in EDH INSURANCE COVERAGE / FINANCIAL ISSUES: Faye. OOS Blue. Part A only Medicare. States no financial concerns at this time CURRENT HOME/COMMUNITY SERVICES/EQUIPMENT: DME:None Home Health Agency:List provided. Pt request referral be sent to [facility]. PHONE: [phone] FAX: [phone] . Referral sent via resource group two. Other: PAIL BAILER REFERRAL: Notified N/A, PAIL BAILER - Support/Financial/Medication Assistance; See PAIL BAILER notes for further needs. PRIMARY CARE PHYSICIAN: KRISTAIN MACHUCA MD [address] / [facility] [address] POTENTIAL DISCHARGE NEEDS: Home VN for RN Care TRANSPORTATION @ D/C: will provide ride at time of d/c PLAN: CRC will continue to monitor progress, follow for continuity of care and assist with discharge planning while hospitalized . * Nisa Young RN - 12/09/2011 10:03 AM EDT [facility] CARDIAC REHABILITATION Maribell Kauffman Sr. was seen today regarding participation in outpatient Phase 2 Cardiac Rehabilitation at [facility] . A referral will be sent to this program. The patient was given contact information and should expect to be contacted by the program within 1-2 weeks after discharge from [facility]. * Goran Nguyen PA - 12/09/2011 9:50 AM EDT Cardiac Surgery Progress Note: ID: [id number] 71/M POD #4 tissue AVR Subjective and [...] well Tubes/Lines/Drains: PIV Recent Labs Basename 12/08/11 0546 ??? WBC 9.5 ??? HGB 10.3* ??? HCT 30.0* ??? PLATELET 97* ??? PT -- ??? INR -- ??? PTT -- ??? FIBRINOGEN -- Recent Labs Basename 12/09/1141612/08/11 0546 12/07/11457 ??? NA -- 138 -- ??? K [...] AM EDT Cardiac Surgery Progress Note: ID: [id number] 71 year old gentleman POD #3 S/P [...] CW IS, cough, and deep breathing. GI: [facility] diet RBOs and Nexium 40 mg for [...] W\PROSTHETIC VALVE performed by ERINN RAMIREZ at [facility] OR Diet:Regular Height:185.4 cm Admit [...] high protein snacks. He is agreeable to saudi arabian yogurt BID. Of note, Pt is prescribed insulin. He has no PMH of DM and last Ha1c was 4.7. Blood sugars seem to be coming down. Pt had a high K+ this morning. Pt received KCL last night. May need to hold of on additional K+ supplementation. Recommend changing pt diet to [facility] (Heart Healthy) given dx and PMH of HTN and high cholesterol. P: 1. High protein diet education and handouts provided. 2. Dietary to provide High protein saudi arabian yogurt BID. 3. Recommend changing pt diet to [facility] (Heart Healthy). 4. Nutrition to follow in one week, unless consulted sooner. * Maribell Romano MD - 12/07/2011 11:02 AM EDT Cardiac Surgery Progress Note: ID: [id number] 71 year old gentleman POD #2 S/P [...] CW IS, cough, and deep breathing. GI: [facility] diet RBOs and Nexium 40 mg for [...] Patient settled into Rm. 436 from the [facility]. Franklin patient to room, call garcia and pain scale. Patient resting in bed, at the bed side. Currently 05/21 for pain. Received tylenol at 1700. * Lupillo Barbosa III, PA - 12/06/2011 11:18 AM EDT Cardiac Surgery Progress Note: ID: [id number] 71 year old gentleman POD #1 S/P [...] on rounds. Signed: Lupillo Barbosa III, MS, PA-C [facility] Section of Cardiothoracic Surgery Date: 12/06/11. documented in this encounter H&P Notes * Erinn Ramirez MD - 12/05/2011 7:06 AM EDT I have seen and examined the patient and we are ready to proceed. Source Note - Erinn Ramirez MD - 12/05/2011 7:05 AM EDT [...] for the 11/18/11 encounter (Follow-Up) with ERINN RAMIREZ Medication Sig Dispense Refill ??? ibuprofen [...] 1-2 drinks daily. 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 Review of Systems Constitutional: Negative. [...] he does not have a UTI. * Erinn Ramirez MD - 12/05/2011 7:05 AM EDT [...] for the 11/18/11 encounter (Follow-Up) with ERINN RAMIREZ Medication Sig Dispense Refill ??? ibuprofen [...] 1-2 drinks daily. 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 Review of Systems Constitutional: Negative. [...] 12/10/2011 9:51 AM EDTAssociated Order(s): SCAN DOC: GAS ENGINE OPERATOR GENERATORS * Provider, Scanning - 12/10/2011 9:51 AM EDTAssociated Order(s): SCAN DOC: IMPLANTABLE DEVICES documented in this encounter Nursing Notes * Kaitlynn Wall RN - 12/05/2011 8:58 AM EDT External zoll pads applied to patient after transferring to OR bed. Intraoperative medications: Nuknit - to sternal edges at time of sternotomy. Vancomycin 1 gram / 1 Floseal / 1 ml NaCl - vancopaste - to sternal edges at time of reapproximation. Family updated throughout procedure. documented in this encounter Miscellaneous Notes * Op Note - Erinn Ramirez MD - 12/11/2011 4:03 PM EDT Patient Name: Maribell Kauffman Sr. : [id number] MR#: [id number] Case Date: 12/05/2011 Surgeon: Surgeon(s) and Role: * ERINN RAMIREZ MD - Primary * MANA ZHENG [...] Patient is a 71 y.o. male of Erinn Herbert MD, admitted on 12/05/2011 with history of . Patient underwent AVR on 12/05/11. Post-op he was extubated overnight the night of surgery and transferred to [address] [place] [address] on 12/06/11. Precautions: sternal (no lifting >7-10 [...] W\PROSTHETIC VALVE performed by ERINN RAMIREZ at [facility] OR Social History: Patient lives with their spouse in one level home. Stairs: 2 with a rail to enter. 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 Equipment at home: crutches, and grab bars in the shower and by the toilet. Subjective: I feel pretty good. Objective: PT referral has been received, chart reviewed, Pt seen this morning on [facility] for 39 minutes for PT evaluation and [...] discharge plan: Yes TAY VIVAR, PT Pager: [phone] Physical Therapy Rehabilitation Department * Plan of Care - Hossein Fernandez RN - 12/06/2011 4:52 PM EDT Problem: Skin Integrity Impairment, Risk/Actual (Adult, Obstetric) Goal: Skin Integrity Impairment, Risk/Actual: Skin Integrity/Wound Healing Outcome: Absent and monitoring Sternal incision dry and intact. Otherwise, no skin breakdown. Mepilex border in place. * Plan of Care - Paloma العلي RN - 12/06/2011 1:48 AM EDT Problem: Pain, Acute (Adult, Obstetric) Goal: Acute Pain: Acceptable Pain Control/Comfort Level - Pain, Acute (Adult, Obstetric) Outcome: Present (see interventions, notes) titrating fentanyl, and gibing boluses PRN with good effect. * Plan of Care - Paloma العلي RN - 12/06/2011 1:43 AM EDT Problem: Cardiac Surgery (Adult) Goal: Prevent/Manage Potential Problems Based on my scope of practice, I assessed for signs and symptoms of potential problems that could be present as documented. Outcome: Present (see interventions, notes) Pt on amiodarone gtt, remains in NSR * OR Attestation - Erinn Ramirez MD - 12/05/2011 11:41 AM EDT Attestation: Case Date: 12/05/2011 I performed this procedure without the involvement of a resident. ERINN RAMIREZ MD 12/05/2011 * Brief Op Note - Erinn Ramirez MD - 12/05/2011 11:37 AM EDT Brief Operative Note Patient Name: Maribell Kauffman Sr. : [id number] MR#: [id number] Case Date: 12/05/2011 Surgeon: Surgeon(s) and Role: * ERINN RAMIREZ MD - Primary * MANA ZHENG Preoperative diagnosis: aortic stenosis Postoperative diagnosis: Aortic Stenosis Procedure(s): AVR 27 TRIFECTA PERICARDIAL, ANDREINA Anesthesia: General Estimated Blood Loss: CELL SAVER Drains: 2 CHEST TUBES, 2A-2V WIRES Disposition: CVCC Condition: STABLE CONDUCT OF CARDIOPULMONARY BYPASS: Venous [...] Presentation: Maribell Kauffman was referred to Dr. Erinn Ramirez by Dr. Lisa for evaulation of [...] Course: Maribell Kauffman Sr. was admitted to [facility] on 12/05/2011 via the Same Day Program. He was brought to the operating room where Dr. Erinn Ramirez performed the above procedure. He tolerated [...] Intermediate Cardiac Care Unit for continued rehabilitation. Lasix was started to diurese the volume he [...] Medications: Maribell Kauffman Sr. Home Medication Instructions LAURA:[id number] Printed on:12/09/11 1271 Medication Information ERGOCALCIFEROL, VITAMIN D2, (VITAMIN D [...] from your chest incision. Your surgeon, Dr. Erinn Ramirez and/or the Cardiac Surgery Physician Rubber Tile Floor Layer Team may be reached at . Antibiotic prophylaxis: You will need to take antibiotics prior to many invasive tests and treatments, such as dental cleaning, which should be done every 6 months. Your primary care physician or your dentist can prescribe this medication. Please refer to the card with the [place] Heart Association Guidelines for more information. You have been provided with 3 copies of this card. Keep one for your self. Give one to your primary care physician and one to your dentist. Please refer to the [place] Heart Association Guidelines for more information. Activity [...] until after your return appointment with Dr. Erinn Ramirez. You may use a [place] Track or treadmill but avoid any pulling [...] friends, go to a movie, go to temple, etc. Heavy activities: No hunting, skiing, jogging, [...] should resume a low fat, low cholesterol, [place] Heart Association Diet. Driving: No driving for [...] primary care physician, KRISTIAN MACHUCA MD, intwo giovanny. You will return to clinic to see Dr. Erinn Ramirez in 4 weeks and will have a CXR,EKG, and ECHO at that time. A letter will be mailed to you with your appointment information. Cardiac Rehabilitation: Maribell Kauffman Sr. was seen regarding participation in outpatient Phase 2 Cardiac Rehabilitation at [facility]. A referral will be sent to this program. The patient was given contact information and should expect to be contacted by the program within 1-2 weeks after discharge from [facility]. Arrangements for VNA/home care: DOCUMENTATION FOR VNA SERVICES (INCLUDING THOSE PATIENTS WITH MEDICARE COVERAGE REQUIRING HOME VNA SERVICES AND/OR HOSPICE SERVICES) PATIENT'S LOCATION: Maribell Kauffman Sr. [address] [place] [phone] (home) [phone] (cell) Quill Cleaner's Name: Pt and Lauren In discussion with the attending physician, it is certified that this patient is under their care and that they, or a nurse practitioner, clinical nurse specialist or physician's assistant property manager who is working directly with them, had [...] for services as follows: HOME HEALTH AGENCY: [facility] PHONE: [phone] FAX: [phone] RN orders: Cardiopulmonary assessment, incisional assessment, assess vital signs, assessment of rehab progress, medication management and effectiveness, home safety evaluation. PLEASE REMOVE CHEST TUBE SUTURES ON OR AFTER 12/16/11. Start of Care Date: 12/10/11 SPECIAL INSTRUCTIONS: For any follow up questions, needs, or issues please call the Cardiac SurgeryOffice at [phone] FOR MEDICARE ONLY: In discussion with the attending physician, it is certified that the clinical findings support thatthis patient is homebound (i.e. absences from home require considerable and taxing effort and are for medical reasons or mandaen services of infrequently or of short duration when for other reasons) Home Health agencies which cover the area of patient's residence have been reviewed, either verbally or in writing, and patient/family have chosen the agency as noted. Home oxygen therapy: N/A Checo Nguyen PA-C Section [place] [address] Date: 11/3011 Time: 10:57 CC: MD KRISTIAN FUNK [address] [place] [address] * Miscellaneous - Provider, Scanning - 12/05/2011 7:23 AM EDT * Miscellaneous - Provider, Scanning - 12/05/2011 7:23 AM EDT documented in this encounter Plan of Treatment Upcoming Encounters Date Type Department Care Team (Late st Contact Info) Description 01/20/2024 9:30 AM EDT Office Visit Hematology/Oncology at [address] [phone] Miguelina Lucia APRN [facility] [place] [address] 02/27/2024 2:15 PM EDT Office Visit Dermatology at [place] [address] [place] [phone] Eliel Vanessa MD [address], [place] [address] Scheduled Referrals Name Type Priority Associated Diagnoses Orde r Schedule REFERRAL TO CARDIAC REHAB Outpatient Referral Routine Aortic stenosis Ordered: 12/09/2011 documented as of this encounter Procedures Procedure Name Priority Date/Time Associated Diagnosis Comments IMPLANTABLE DEVICES SCAN 12/10/2011 9:51 AM EDT GAS ENGINE OPERATOR GENERATORS SCAN 12/10/2011 9:51 AM EDT POTASSIUM Routine [...] Routine 12/06/2011 4:00 AM EDT CARDIAC ENZYMES ([facility]) Routine 12/06/2011 4:00 AM EDT CREATININE Routine [...] (Bezet) 464 ms MUSE SYSTEM Calculated P [place] 22 degrees MUSE SYSTEM Calculated R [place] -8 degrees MUSE SYSTEM Calculated T [place] 20 degrees MUSE SYSTEM INTERPRETATION Sinus rhythm with 1st degree A-V block RSR' or QR pattern in V1 suggests right ventricular conduction delay When compared with ECG of 05-DEC-2011 13:45, No significant change was found Confirmed by MD Abbie, Lupillo ([id number]) on 01/15/2012 6:09:07 PM MUSE SYSTEM 01/15/2012 11:5 9 AM EDT 01/15/2012 6:09 PM EDT Erinn Ramirez MD ECG ORDERABLES MUSE SYSTEM * Echo Transthoracic (Complete) (01/15/2012 11:36 AM EDT) EF 60 HEARTLAB SYSTEM Anatomical Region Laterality Modality Other 01/15/2012 Narrative 01/15/2012 12:03 PM EDT Procedure: ? Transthoracic Echocardiogram Patient: ? DALY Giang ?(Age): 1940(71) Med Rec#: ?[id number] ? Sex: ?M ? Site Loc: ?[facility] ? Ht / Wt: ??185.4(cm)/109(k Pt. Loc: ? Echo Lab ? BSA: ?2.37 Study Date: ?01/15/2012 ? Pt. Type: Outpatient Tape: ? Referring: Erinn Ramirez Referring: KRISTIAN MACHUCA G Page Designer: Hany Deleon MS, [facility] Diagnosis: ??Aortic valve disorders (424.1) CPT Code(s): ??Echo LTD (60609), ??Color Doppler (86773), ??Doppler LTD (15422), Indication(s): ??Aortic prosthesis, F/U Rhythm: HR ?BP [...] ? Mid-Inferior ?Normal ? Mid-Inferoseptal ?Normal ? [place]-Septal ? Normal ? [place]-Anterior ? Normal ? [place]-Lateral ?Normal ? [place]-Inferior ? Normal ? [place]-Tip ?Normal ? Chambers ?Value ?Units (Range) ? [...] ? DOI ? 0.495 ? AV pk demla ? 1.9 ?m/sec (1 to 1.7) ? [...] 12:02:52 Images reviewed and interpretation verified [facility] Procedure Note Kulwinder Cherry MD - 01/15/2012 Procedure: Transthoracic Echocardiogram Patient: DALY Giang DOB(Age): 1940(71) Med Rec#: [id number] Sex: M Site Loc: [facility] Ht / Wt: 185.4(cm)/109(k Pt. Loc: Echo Lab BSA: 2.37 Study Date: 01/15/2012 Pt. Type: Outpatient Tape: Referring: Erinn Ramirez Referring: KRISTIAN MACHUCA G Page Designer: Hany Deleon MS, [facility] Diagnosis: Aortic valve disorders (424.1) CPT Code(s): Echo LTD (59426), Color Doppler (67474), Doppler LTD (29186), Indication(s): Aortic prosthesis, F/U Rhythm: HR BP [...] Normal Mid-Posterolateral Normal Mid-Inferior Normal Mid-Inferoseptal Normal [place]-Septal Normal [place]-Anterior Normal [place]-Lateral Normal [place]-Inferior Normal [place]-Tip Normal Chambers Value Units (Range) LV EF [...] 12:02:52 Images reviewed and interpretation verified [facility] Erinn Ramirez MD ECHO ORDERABLES * XR chest [...] and clearing of bibasilar atelectasis and pleuralfluid. Erinn Ramirez MD IMG DX ORDERABLES * SCAN DOC: IMPLANTABLE DEVICES (12/10/2011 9:51 AM EDT) Narrative 12/10/2011 9:51 AM EDT Procedure Note Provider, Scanning - 12/10/2011 9:51 AM EDT Scanning Provider MEDIA MGR SCAN EXT O RDR/RSLT * SCAN DOC: GAS ENGINE OPERATOR GENERATORS (12/10/2011 9:51 AM EDT) Anatomical Region Laterality Modality Other Narrative 12/10/2011 11:27 AM EDT Procedure Note Provider, Scanning - 12/10/2011 9:51 AM EDT Scanning Provider MEDIA MGR SCAN EXT O RDR/RSLT * Potassium (12/09/2011 4:17 AM EDT) [facility] Potassium 3.5 3.5 - 5.0 mmol/L [facility] Comment: Please note: ??Patients with WBC >100,000 may have falsely elevated Potassium levels. ??For accurate Potassium quantification in these patients send serum separator tube (gold top) for subsequent determinations. ??Contact the Clinical Chemistry Laboratory if there are any questions. Blood specimen (specimen) 12/09/2011 4:17 AM EDT 12/09/2011 4:49 AM EDT Narrative Resulting Agency Comment Spec In Lab Erinn Ramirez MD CHEMISTRY ORDERABL ES EFREM SANCHEZ * XR chest routine PA & lateral (12/08/2011 8:03 AM EDT) Anatomical Region Laterality Modality Chest N/A Radiographic Komal ging 12/08/2011 8:03 AM EDT Narrative 12/08/2011 11:18 AM EDT Examination CHEST ROUTINE PA+LAT, 12/08/2011 Clinical History S/P AVR. Comparison Portable AP supine chest, 12/05/2011 at 1300 hours. Findings Interval removal of the ET tube, NG tube, right IJ [place]-Eber catheter, and the 2 subxiphoid drains. ??No [...] the ET tube, NG tube, right IJ [place]-Eber catheter, andthe 2 subxiphoid drains. No pneumothorax. A relatively low degree of lung inflation is demonstrated, bilaterally, with small bilateral pleuraleffusions and mild left basilar subsegmental atelectasis. Cardiomediastinalsilhouette is stable. No pulmonary edema. Median sternotomy wires and prostheticaortic valve are again noted. Impression Uncomplicated removal of support equipment. Small bilateral pleuraleffusions with mild left basilar subsegmental atelectasis. Erinn Ramirez MD IMG DX ORDERABLES * (ABNORMAL) DIFFERENTIAL, AUTOMATED (12/08/2011 5:46 AM EDT) Pathologist [facility] Neutrophil % 82.7(H) 34.0 - 71.0 % [...] 5:46 AM EDT 12/08/2011 6:03 AM EDT Erinn Ramirez MD HEMATOLOGY ORDERAB LES CERNER MILLENNIUM * SCAN, PERIPHERAL BLOOD (12/08/2011 5:46 AM EDT) Plat estimate Decreased CERNER MILLENNIUM RBC Morphology Normal CERNE R MILLENNIUM Blood specimen (specimen) 12/08/2011 5:46 AM EDT 12/08/2011 6:03 AM EDT Narrative Resulting Agency Comment Spec In Lab Erinn Ramirez MD HEMATOLOGY ORDERAB LES CERNER MILLENNIUM * (ABNORMAL) Basic Metabolic Panel (non-fasting) (12/08/2011 5:46 AM EDT) Glucose 119 60 - 199 mg/dL CERNER MILLENNIUM Comment:Diabetes: >=200 mg/d L plus symptoms Blood Urea Nitrogen 23(H) 10 - 20 mg/dL CERNER MILLENNIUM Creatinine 0.62(L) 0.80 - 1.50 mg/dL CERNER MILLENNIUM Comment: Please note that the pediatric reference intervals supplied above were not validated at [facility]. Results from pediatric patients should be interpreted [...] Resulting Agency Comment Spec In Lab Erinn Ramirez MD CHEMISTRY ORDERABL ES EFREM FATIMAIUM * (ABNORMAL) CBC (with Diff) (12/08/2011 5:46 [...] Resulting Agency Comment Spec In Lab Erinn Ramirez MD HEMATOLOGY ORDERAB LES Performing Organization Address City/[facility]/ZIP Co de Phone Number [facility] * POCT GLUCOSE LAB USE ONLY (12/07/2011 9:03 PM EDT) Glucose, POC 143 60 - 199 mg/dL [facility] Comment: Supplemental ranges: <110 mg/dL before meals <200 mg/dL all other times of the day Blood specimen (specimen) 12/07/2011 9:03 PM EDT 12/07/2011 9:03 PM EDT Erinn Ramirez MD POINT OF CARE TEST ORDERABLES Performing Organization Address City/[facility]/ZIP Co de Phone Number [facility] * POCT GLUCOSE LAB USE ONLY (12/07/2011 4:03 PM EDT) Glucose, POC 139 60 - 199 mg/dL [facility] Comment: Supplemental ranges: <110 mg/dL before meals <200 mg/dL all other times of the day Blood specimen (specimen) 12/07/2011 4:03 PM EDT 12/07/2011 4:03 PM EDT Erinn Ramirez MD POINT OF CARE TEST ORDERABLES Performing Organization Address [facility] de Phone Number [facility] * POCT GLUCOSE LAB USE ONLY (12/07/2011 12:22 PM EDT) Glucose, POC 119 60 - 199 mg/dL [facility] Comment: Supplemental ranges: <110 mg/dL before meals <200 mg/dL all other times of the day Blood specimen (specimen) 12/07/2011 12:22 PM EDT 12/07/2011 12:22 PM EDT Erinn Ramirez MD POINT OF CARE TEST ORDERABLES Performing Organization Address [facility] de Phone Number [facility] * POCT GLUCOSE LAB USE ONLY (12/07/2011 9:01 AM EDT) Glucose, POC 188 60 - 199 mg/dL [facility] Comment: Supplemental ranges: <110 mg/dL before meals <200 mg/dL all other times of the day Blood specimen (specimen) 12/07/2011 9:01 AM EDT 12/07/2011 9:01 AM EDT Erinn Ramirez MD POINT OF CARE TEST ORDERABLES Performing Organization Address [facility] de Phone Number [facility] * (ABNORMAL) Potassium (12/07/2011 4:58 AM EDT) Potassium 5.2(H) 3.5 - 5.0 mmol/L [facility] MILLENNIUM Comment: Please note: ??Patients with WBC >100,000 may have falsely elevated Potassium levels. ??For accurate Potassium quantification in these patients send serum separator tube (gold top) for subsequent determinations. ??Contact the Clinical Chemistry Laboratory if there are any questions. Blood specimen (specimen) 12/07/2011 4:58 AM EDT 12/07/2011 5:16 AM EDT Narrative Resulting Agency Comment Spec In Lab Erinn Ramirez MD CHEMISTRY ORDERABL ES Performing Organization Address [facility] de Phone Number [facility] * POCT GLUCOSE LAB USE ONLY (12/07/2011 4:30 AM EDT) Glucose, POC 132 60 - 199 mg/dL [facility] Comment: Supplemental ranges: <110 mg/dL before meals <200 mg/dL all other times of the day Blood specimen (specimen) 12/07/2011 4:30 AM EDT 12/07/2011 4:30 AM EDT Erinn Ramirez MD POINT OF CARE TEST ORDERABLES Performing Organization Address [facility] Phone Number [facility] * POCT GLUCOSE LAB USE ONLY (12/06/2011 11:57 PM EDT) Glucose, POC 162 60 - 199 mg/dL [facility] Comment: Supplemental ranges: <110 mg/dL before meals <200 mg/dL all other times of the day Blood specimen (specimen) 12/06/2011 11:57 PM EDT 12/06/2011 11:57 PM EDT Erinn Ramirez MD POINT OF CARE TEST ORDERABLES Performing Organization Address [facility] Phone Number [facility] * POCT GLUCOSE LAB USE ONLY (12/06/2011 9:07 PM EDT) Glucose, POC 134 60 - 199 mg/dL [facility] Comment: Supplemental ranges: <110 mg/dL before meals <200 mg/dL all other times of the day Blood specimen (specimen) 12/06/2011 9:07 PM EDT 12/06/2011 9:07 PM EDT Erinn Ramirez MD POINT OF CARE TEST ORDERABLES Performing Organization Address [facility] de Phone Number CERNER MILLENNIUM * POCT GLUCOSE LAB USE ONLY (12/06/2011 5:12 PM EDT) Glucose, POC 127 60 - 199 mg/dL [facility] Comment: Supplemental ranges: <110 mg/dL before meals <200 mg/dL all other times of the day Blood specimen (specimen) 12/06/2011 5:12 PM EDT 12/06/2011 5:12 PM EDT Erinn Ramirez MD POINT OF CARE TEST ORDERABLES Performing Organization Address City/[facility] Co de Phone Number [facility] * POCT GLUCOSE LAB USE ONLY (12/06/2011 2:34 PM EDT) Glucose, POC 135 60 - 199 mg/dL [facility] Comment: Supplemental ranges: <110 mg/dL before meals <200 mg/dL all other times of the day Blood specimen (specimen) 12/06/2011 2:34 PM EDT 12/06/2011 2:34 PM EDT Erinn Ramirez MD POINT OF CARE TEST ORDERABLES Performing Organization Address [facility] de Phone Number [facility] * POCT GLUCOSE LAB USE ONLY (12/06/2011 12:31 PM EDT) Glucose, POC 133 60 - 199 mg/dL [facility] Comment: Supplemental ranges: <110 mg/dL before meals <200 mg/dL all other times of the day Blood specimen (specimen) 12/06/2011 12:31 PM EDT 12/06/2011 12:31 PM EDT Erinn Ramirez MD POINT OF CARE TEST ORDERABLES Performing Organization Address [facility] Co de Phone Number [facility] * POCT GLUCOSE LAB USE ONLY (12/06/2011 10:40 AM EDT) Glucose, POC 136 60 - 199 mg/dL [facility] Comment: Supplemental ranges: <110 mg/dL before meals <200 mg/dL all other times of the day Blood specimen (specimen) 12/06/2011 10:40 AM EDT 12/06/2011 10:40 AM EDT Erinn Ramirez MD POINT OF CARE TEST ORDERABLES Performing Organization Address [facility] de Phone Number [facility] * POCT GLUCOSE LAB USE ONLY (12/06/2011 8:07 AM EDT) Glucose, POC 145 60 - 199 mg/dL [facility] Comment: Supplemental ranges: <110 mg/dL before meals <200 mg/dL all other times of the day Blood specimen (specimen) 12/06/2011 8:07 AM EDT 12/06/2011 8:07 AM EDT Erinn Ramirez MD POINT OF CARE TEST ORDERABLES Performing Organization Address [facility] de Phone Number [facility] * POCT GLUCOSE LAB USE ONLY (12/06/2011 6:31 AM EDT) Glucose, POC 135 60 - 199 mg/dL [facility] Comment: Supplemental ranges: <110 mg/dL before meals <200 mg/dL all other times of the day Blood specimen (specimen) 12/06/2011 6:31 AM EDT 12/06/2011 6:31 AM EDT Erinn Ramirez MD POINT OF CARE TEST ORDERABLES Performing Organization Address [facility] de Phone Number [facility] * NUCLEATED RED BLOOD CELLS (12/06/2011 4:00 AM EDT) NRBC% auto 0.0 0.0 - 0.2 % [facility] NRBC Absolute 0.000 0.000 - 0.012 x10(3)/mcL [facility] Blood specimen (specimen) 12/06/2011 4:00 AM EDT 12/06/2011 4:10 AM EDT Narrative Resulting Agency Comment Spec In Lab Erinn Ramirez MD HEMATOLOGY ORDERAB LES [facility]ILL[facility] * (ABNORMAL) DIFFERENTIAL, AUTOMATED (12/06/2011 4:00 AM [...] Absolute 0.02 0.00 - 0.05 x10(3)/mc L [facility] MILLENNI[facility] Blood specimen (specimen) 12/06/2011 4:00 AM EDT 12/06/2011 4:10 AM EDT Erinn Ramirez MD HEMATOLOGY ORDERAB LES [facility] * (ABNORMAL) Cardiac Enzymes (12/06/2011 4:00 AM EDT) Troponin-T 0.34(H) <=0.03 ng/mL [facility] Comment: 0.03 ng/mL: Represents the 99th percentile upper reference limit for normals. >0.03 ng/mL: Elevated cardiac troponin T level indicative of myocardial damage. Diagnosis of acute, evolving or recent ND requires a typical rise and gradual fall [...] consensus document of the Joint Society of Cardiology/[place] College of Cardiology Committee for the redefinition of myocardial infarction. Journal of the [place] College of Cardiology 2000; 36: 959-969] Creatine Kinase 293(H) 0 - 200 unit/L [facility] Blood specimen (specimen) 12/06/2011 4:00 AM EDT 12/06/2011 4:10 AM EDT Narrative Resulting Agency Comment Spec In Lab Erinn Ramirez MD CHEMISTRY ORDERABL ES [facility] * Potassium (12/06/2011 4:00 AM EDT) Pathologist [facility] Potassium 4.5 3.5 - 5.0 mmol/L [facility] Comment: Please note: ??Patients with WBC >100,000 may have falsely elevated Potassium levels. ??For accurate Potassium quantification in these patients send serum separator tube (gold top) for subsequent determinations. ??Contact the Clinical Chemistry Laboratory if there are any questions. Blood specimen (specimen) 12/06/2011 4:00 AM EDT 12/06/2011 4:10 AM EDT Narrative Resulting Agency Comment Spec In Lab Erinn Ramirez MD CHEMISTRY ORDERABL ES Performing Organization Address [facility] de Phone Number [facility] * (ABNORMAL) Glucose, fasting (12/06/2011 4:00 AM EDT) Glucose Fasting 139(H) 65 - 99 mg/dL [facility] Comment: ?Fasting* Glucose Interpretive Criteria Normal ?65-99 [...] of Diabetes Mellitus, Position Statement from the [place] Diabetes Association. ??Diabetes Care, Volume 33, Supplement 1, May 2009 Blood specimen (specimen) 12/06/2011 4:00 AM EDT 12/06/2011 4:10 AM EDT Narrative Resulting Agency Comment Spec In Lab Erinn Ramirez MD CHEMISTRY ORDERABL ES Performing Organization Address [facility] de Phone Number [facility] * (ABNORMAL) Creatinine, serum (12/06/2011 4:00 AM EDT) Creatinine 0.57(L) 0.80 - 1.50 mg/dL [facility] Comment: Please note that the pediatric reference intervals supplied above were not validated at [facility]. Results from pediatric patients should be interpreted in conjunction to the patient's age, height and muscle mass. Est Glomerular Filtration Rate >60 >=60 [facility] Comment: The National Kidney Disease Education Program [...] Resulting Agency Comment Spec In Lab Erinn Ramirez MD CHEMISTRY ORDERABL ES EFREM SANCHEZ * BUN (12/06/2011 4:00 AM EDT) Blood Urea Nitrogen 16 10 - 20 mg/dL EF[facility] FATIMAJOEL Blood specimen (specimen) 12/06/2011 4:00 AM EDT 12/06/2011 4:10 AM EDT Narrative Resulting Agency Comment Spec In Lab Erinn Ramirez MD CHEMISTRY ORDERABL ES [facility]ILLENNI[facility] * (ABNORMAL) CBC (with Diff) (12/06/2011 4:00 AM EDT) White Blood Cell 17.0(H) 4.0 - 10.0 x10(3)/mc L [facility] MILLENNIUM Red Blood Cell 3.65(L) 4.63 - 6.08 x10(6)/mc L [facility] MILLENNIUM Hemoglobin 12.1(L) 13.7 - 17.5 gm/dL [facility] MILLENNIUM Comment: Called by: [facility], Read back by: PALOMA العلي, Date-Time: 12-06-11 04:39. LAST HGB WAS [...] Resulting Agency Comment Spec In Lab Erinn Ramirez MD HEMATOLOGY ORDERAB LES [facility] * POCT GLUCOSE LAB USE ONLY (12/06/2011 3:56 AM EDT) Glucose, POC 143 60 - 199 mg/dL [facility] Comment: Supplemental ranges: <110 mg/dL before meals <200 mg/dL all other times of the day Blood specimen (specimen) 12/06/2011 3:56 AM EDT 12/06/2011 3:56 AM EDT Erinn Ramirez MD POINT OF CARE TEST ORDERABLES Performing Organization Address City/[facility] Co de Phone Number [facility] * POCT GLUCOSE LAB USE ONLY (12/06/2011 2:16 AM EDT) Glucose, POC 139 60 - 199 mg/dL [facility] Comment: Supplemental ranges: <110 mg/dL before meals <200 mg/dL all other times of the day Blood specimen (specimen) 12/06/2011 2:16 AM EDT 12/06/2011 2:16 AM EDT Erinn Ramirez MD POINT OF CARE TEST ORDERABLES Performing Organization Address [facility] Co de Phone Number [facility] * POCT GLUCOSE LAB USE ONLY (12/06/2011 12:07 AM EDT) Glucose, POC 165 60 - 199 mg/dL [facility] Comment: Supplemental ranges: <110 mg/dL before meals <200 mg/dL all other times of the day Blood specimen (specimen) 12/06/2011 12:07 AM EDT 12/06/2011 12:07 AM EDT Erinn Ramirez MD POINT OF CARE TEST ORDERABLES Performing Organization Address [facility] Co de Phone Number [facility] * POCT GLUCOSE LAB USE ONLY (12/05/2011 10:13 PM EDT) Glucose, POC 138 60 - 199 mg/dL [facility] MILLENNIUM Comment: Supplemental ranges: <110 mg/dL before meals <200 mg/dL all other times of the day Blood specimen (specimen) 12/05/2011 10:13 PM EDT 12/05/2011 10:13 PM EDT Erinn Ramirez MD POINT OF CARE TEST ORDERABLES Performing Organization Address [facility] Co de Phone Number EF[facility] FATIMAIUM * POCT GLUCOSE LAB USE ONLY (12/05/2011 9:16 PM EDT) Glucose, POC 171 60 - 199 mg/dL [facility] MILLENNIUM Comment: Supplemental ranges: <110 mg/dL before meals <200 mg/dL all other times of the day Blood specimen (specimen) 12/05/2011 9:16 PM EDT 12/05/2011 9:16 PM EDT Erinn Ramirez MD POINT OF CARE TEST ORDERABLES Performing Organization Address [facility] de Phone Number [facility] FATIMAI[facility] * POCT GLUCOSE LAB USE ONLY (12/05/2011 8:02 PM EDT) Glucose, POC 175 60 - 199 mg/dL [facility] MILLENNIUM Comment: Supplemental ranges: <110 mg/dL before meals <200 mg/dL all other times of the day Blood specimen (specimen) 12/05/2011 8:02 PM EDT 12/05/2011 8:02 PM EDT Erinn Ramirez MD POINT OF CARE TEST ORDERABLES Performing Organization Address [facility] de Phone Number [facility] * (ABNORMAL) BLOOD GAS 2 ARTERIAL (12/05/2011 5:17 PM EDT) pH, Arterial 7.35(L) CERNER MILLENNIUM PCO2, Arterial 40 mmHg CERNE R MILLENNIUM PO2, Arterial 116(H) mmHg [facility] MILLENNIUM Bicarbonate, Arterial 21.4 mmol/L [facility] MILLENNIUM Base Excess, Arterial -4.2(L) mmol/L [facility] MILLENNIUM Hgb Blood Gas 12.6(L) gm/dL [facility] MILLENNI[facility] Comment: Total Hemoglobin (in gm/dL) ?Based on [facility] Hematology ranges: ?Age ?Reference Range Less than [...] 5:17 PM EDT 12/05/2011 5:17 PM EDT Erinn Ramirez MD POINT OF CARE TEST ORDERABLES Performing Organization Address [facility] de Phone Number CERNER MILLENNIUM * EKG 12 Lead (12/05/2011 1:45 PM EDT) Ventricular rate 72 BPM MUSE SYSTEM Atrial Rate 72 BPM MUSE SYSTEM P-R Interval 188 ms MUSE SYSTEM QRS Duration 96 ms MUSE SYSTEM Q-T Interval 444 ms MUSE SYSTEM QTC Calculated (Bezet) 486 ms MUSE SYSTEM Calculated P [place] 9 degrees MUSE SYSTEM Calculated R [place] -7 degrees MUSE SYSTEM Calculated T [place] 19 degrees MUSE SYSTEM INTERPRETATION Normal sinus rhythm RSR' or QR pattern in V1 suggests right ventricular conduction delay Prolonged QT Abnormal ECG When compared with ECG of 18-NOV-2011 11:12, Premature ventricular complexes are no longer Present Confirmed by MD GENA, DIPIKA ([id number]) on 12/05/2011 7:06:45 PM MUSE SYSTEM 12/05/2011 1:45 PM EDT 12/05/2011 7:06 PM EDT Erinn Ramirez MD ECG ORDERABLES Performing Organization Address [facility] de Phone Number MUSE SYSTEM * (ABNORMAL) BLOOD GAS 2 ARTERIAL (12/05/2011 1:29 PM EDT) pH, Arterial 7.33(L) [facility]ERNER MILLENNIUM PCO2, Arterial 41 mmHg CERNE R MILLENNIUM PO2, Arterial 416(H) mmHg [facility] MILLENNIUM Bicarbonate, Arterial 21.2 mmol/L [facility] MILLENNI[facility] Base Excess, Arterial -4.7(L) mmol/L [facility] MILLENNI[facility] Hgb Blood Gas 12.9(L) gm/dL [facility] MILL[facility] Comment: Total Hemoglobin (in gm/dL) ?Based on [facility] Hematology ranges: ?Age ?Reference Range Less than [...] 1:29 PM EDT 12/05/2011 1:29 PM EDT Erinn Ramirez MD POINT OF CARE TEST ORDERABLES EFREM SANCHEZ * XR CHEST PA OR AP- 1 [...] above the mauricio. ??Right IJ introducer with [place] catheter tip in the proximal main pulmonary [...] cm above the mauricio. Right IJintroducer with [place] catheter tip in the proximal main pulmonary artery. No pneumothorax is identified. 2 subxiphoid drains are present. 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 Subsegmental atelectasis at the leftlung base. No pleural fluid collection identified. No change in the cardiomediastinal silhouette. Impression Equipment positions as above. No complications are seen. Erinn Ramirez MD IMG DX ORDERABLES * SURGICAL PATHOLOGY REPORT (12/05/2011 11:50 AM EDT) Surgical Pathology Report ? [facility] ? Provider: ?? ERINN RAMIREZ Pt. Name: ?? DALY PAULINO, MARIBELL Giang ? Acc #: ?[id number] ?Pt. ? Col Date: ?? 12/05/2011 ? [...] CERNER MILLENNIUM 12/05/2011 11:5 0 AM EDT Erinn Ramirez MD PATHOLOGY/CYTOLOGY ORDERABLES [facility] MILLENNI[facility] * (ABNORMAL) BLOOD GAS 2 ARTERIAL (12/05/2011 10:49 AM EDT) pH, Arterial 7.36 CERNER MILLENNIUM PCO2, Arterial 43 mmHg CERNE R MILLENNIUM PO2, Arterial 403(H) mmHg [facility] MILLENNIUM Bicarbonate, Arterial 24.1 mmol/L [facility] MILLENNIUM Base Excess, Arterial -1.3 mmol/L [facility] MILLENNIUM Hgb Blood Gas 10.2(L) gm/dL [facility] MILLENNIUM Comment: Total Hemoglobin (in gm/dL) ?Based on [facility] Hematology ranges: ?Age ?Reference Range Less than [...] L plus symptoms. Blood specimen (specimen) 12/05/2011 10:49 AM EDT 12/05/2011 10:49 AM EDT Erinn Ramirez MD POINT OF CARE TEST ORDERABLES [facility] MILLENNIUM * (ABNORMAL) DIFFERENTIAL, MANUAL (12/05/2011 10:45 AM [...] Resulting Agency Comment Spec In Lab Erinn Ramirez MD HEMATOLOGY ORDERAB LES Performing Organization Address [facility] de Phone Number [facility]ER[facility] FATIM[facility] * THROMBIN TIME (12/05/2011 10:45 AM EDT) Thrombin Time 18 15 - 20 sec CERNER MILLENNIUM Blood specimen (specimen) 12/05/2011 10:45 AM EDT 12/05/2011 10:51 AM EDT Narrative Resulting Agency Comment Spec In Lab Erinn Ramirez MD HEMATOLOGY ORDERAB LES Performing Organization Address City/State/[facility] Co de Phone Number CERNER PRISCILLAENNIUM * FIBRINOGEN (12/05/2011 10:45 AM EDT) Fibrinogen 273 220 - 480 mg/dL [facility] MILLENNIUM Comment:Called by: , Read back by: kaitlynn wall, Date/Time:12/05/11 11:06. Blood specimen (specimen) 12/05/2011 10:45 AM EDT 12/05/2011 10:51 AM EDT Narrative Resulting Agency Comment Spec In Lab Erinn Ramirez MD HEMATOLOGY ORDERAB LES Performing Organization Address [facility] de Phone Number EFREM FATIMAIUM * APTT (12/05/2011 10:45 AM EDT) Partial Thromboplastin Time 29 25 - 35 sec [facility] Comment: Recommended therapeutic PTT range for full dose unfractionated heparin is 80-114 seconds. Blood specimen (specimen) 12/05/2011 10:45 AM EDT 12/05/2011 10:51 AM EDT Narrative Resulting Agency Comment Spec In Lab Erinn Ramirez MD HEMATOLOGY ORDERAB LES Performing Organization Address [facility] Phone Number CERMAGGY WELLSENNIUM * (ABNORMAL) PROTHROMBIN TIME (12/05/2011 10:45 AM EDT) Prothrombin Time 17.8(H) 11.9 - 14.7 sec CERMAGGY WELLSENNIUM Comment: [facility] Transfusion Committee Guidelines: INR less than [...] Resulting Agency Comment Spec In Lab Erinn Ramirez MD HEMATOLOGY ORDERAB LES Performing Organization Address [facility] de Phone Number EFREM FATIMAIUM * (ABNORMAL) CBC (WITH DIFF) (12/05/2011 10:45 [...] Resulting Agency Comment Spec In Lab Erinn Ramirez MD HEMATOLOGY ORDERAB LES C[facility]ER MILLENNIUM * (ABNORMAL) BLOOD GAS 2 ARTERIAL (12/05/2011 10:17 AM EDT) pH, Arterial 7.37 CERNER MILLENNIUM PCO2, Arterial 45 mmHg CERNE R MILLENNIUM PO2, Arterial 141(H) mmHg [facility]ERNER MILLENNIUM Bicarbonate, Arterial 25.4 mmol/L [facility] MILLENNIUM Base Excess, Arterial 0.2 mmol/L [facility] MILLENNIUM Hgb Blood Gas 10.1(L) gm/dL [facility] MILLENNIUM Comment: Total Hemoglobin (in gm/dL) ?Based on [facility] Hematology ranges: ?Age ?Reference Range Less than [...] 10:17 AM EDT 12/05/2011 10:17 AM EDT Erinn Ramirez MD POINT OF CARE TEST ORDERABLES [facility] MILLENNIUM * (ABNORMAL) BLOOD GAS 2 ARTERIAL (12/05/2011 9:42 AM EDT) pH, Arterial 7.32(L) CERNER MILLENNIUM PCO2, Arterial 52(Critica l) mmHg [facility]ER MILLENNIUM Comment:Noted by instrument room technician. PO2, Arterial 276(H) mmHg CERNER MILLENNIUM Bicarbonate, Arterial 26.1(H) mmol/L CERN[facility] MILLENNIUM Base Excess, Arterial 0.0 mmol/L [facility] MILLENNIUM Hgb Blood Gas 10.8(L) gm/dL [facility]ERN[facility] MILLENNIUM Comment: Total Hemoglobin (in gm/dL) ?Based on [facility] Hematology ranges: ?Age ?Reference Range Less than [...] 9:42 AM EDT 12/05/2011 9:42 AM EDT Erinn Ramirez MD POINT OF CARE TEST ORDERABLES Performing Organization Address City/[facility] Co de Phone Number [facility] * FIBRINOGEN (12/05/2011 9:35 AM EDT) Fibrinogen 283 220 - 480 mg/dL CERNER MILLENNIUM Comment:Called by: , Read back by: kaitlynn wall, Date/Time:12/05/11 10:12. Blood specimen (specimen) 12/05/2011 9:35 AM EDT 12/05/2011 9:45 AM EDT Narrative Resulting Agency Comment Spec In Lab Erinn Ramirez MD HEMATOLOGY ORDERAB LES Performing Organization Address [facility] Co de Phone Number [facility] * PLATELET COUNT (12/05/2011 9:35 AM EDT) Platelet 169 145 - 370 x10(3)/mcL CERNER MILLENNIUM Blood specimen (specimen) 12/05/2011 9:35 AM EDT 12/05/2011 9:44 AM EDT Narrative Resulting Agency Comment Spec In Lab Erinn Ramirez MD HEMATOLOGY ORDERAB LES EFREM SANCHEZ * Specimen to Pathology (surgical or derm) (12/05/2011 9:30 AM EDT) AP Specimen 12/05/2011 9:30 AM EDT 12/05/2011 9:30 AM EDT Narrative EFREM WELLSKELSEYIUM - 12/05/2011 9:30 AM EDT Specimen requisition ordered. ??Separate Pathology report to follow Erinn Ramirez MD PATHOLOGY/CYTOLOGY ORDERABLES Performing Organization Address City/[facility]/ZIP Co de Phone Number EFREM SANCHEZ * Prepare Coag Factors (Non-Hemophilia) (12/05/2011 9:20 AM EDT) Dispensed? Yes JUAN MMAGGY WELLSKELSEYJOEL Blood specimen (specimen) 12/05/2011 9:20 AM EDT 12/05/2011 9:19 AM EDT Erinn Ramirez MD BLOOD BANK PRODUCT ORDERABLES Performing Organization Address [facility]/ZIP Co de Phone Number EFREM SANCHEZ * (ABNORMAL) BLOOD GAS 2 ARTERIAL (12/05/2011 9:06 AM EDT) pH, Arterial 7.40 CERNER MILLENNIUM PCO2, Arterial 39 mmHg CERNE R MILLENNIUM PO2, Arterial 350(H) mmHg CERNER MILLENNIUM Bicarbonate, Arterial 23.5 mmol/L CERNER MILLENNIUM Base Excess, Arterial -1.3 mmol/L CERNER MILLENNIUM Hgb Blood Gas 8.8(L) gm/dL CERNER MILLENNIUM Comment: Total Hemoglobin (in gm/dL) ?Based on [facility] Hematology ranges: ?Age ?Reference Range Less than [...] reyna) mmol/L CERNER MILLENNIUM Comment: Noted by instrument room technician. Reference Ranges: ?? < 19 yrs: 1.22 - 1.37 mmol/L ? Adults: 1.15 - 1.33 mmol/L Note: ??Total bilirubin higher than 20 mg/dL may lead to falsely low ionized calcium. CL Whole Blood 96(L) mmol/L CERNE R MILLENNIUM Gluc Whole Bld 208(H) mg/dL CERNE R MILLENNIUM Comment:Diabetes: >=200 mg/d L plus symptoms. Blood specimen (specimen) 12/05/2011 9:06 AM EDT 12/05/2011 9:06 AM EDT Erinn Ramirez MD POINT OF CARE TEST ORDERABLES [...] Comment: Total Hemoglobin (in gm/dL) ?Based on [facility] Hematology ranges: ?Age ?Reference Range Less than [...] 8:13 AM EDT 12/05/2011 8:13 AM EDT Erinn Ramirez MD POINT OF CARE TEST ORDERABLES Performing Organization Address [facility] Co de Phone Number [facility] * Prepare RBC (12/05/2011 6:35 AM EDT) Dispensed? Yes [facility] Blood specimen (specimen) 12/05/2011 6:35 AM EDT 12/05/2011 6:32 AM EDT Erinn Ramirez MD BLOOD BANK PRODUCT ORDERABLES Performing Organization Address City/State/[facility] Co de Phone Number [facility] * POCT GLUCOSE LAB USE ONLY (12/05/2011 6:24 AM EDT) Glucose, POC 110 60 - 199 mg/dL [facility] Comment: Supplemental ranges: <110 mg/dL before meals <200 mg/dL all other times of the day Blood specimen (specimen) 12/05/2011 6:24 AM EDT 12/05/2011 6:24 AM EDT Erinn Ramirez MD POINT OF CARE TEST ORDERABLES Performing Organization Address City/State/[facility] Co pr Phone Number [facility] documented in this encounter Visit Diagnoses Not on filedocumented in this encounter Administered Medications Inactive Administered Medications - up to 3 most recent administrations Medication Order MAR Action Action Date Dose Rate Site calcium chloride injection ONCE PRN, Starting on Deborah 12/05/11 at 1003, Until Fri12/05/11 at 1202, Intra-Operative (Intra-Procedure) Given 12/05/2011 10:03 AM EDT 1 g cardioplegic solution (PLEGISOL) induction solution ONCE PRN, Starting on Deborah 12/05/11 at 0859, Until Fri12/05/11 at 1202, Intra-Operative (Intra-Procedure) Given 12/05/2011 8:59 AM EDT 300 mLs cardioplegic solution (PLEGISOL) maintenance solution ONCE PRN, Starting on Deborah 12/05/11 at 0954, Until Fri12/05/11 at 1202, Intra-Operative (Intra-Procedure) Given 12/05/2011 9:54 AM EDT 300 mLs cardioplegic solution (PLEGISOL) reperfusion solution ONCE PRN, Starting on Deborah 12/05/11 at 1003, Until Deborah 12/05/11 at 1202, Intra-Operative (Intra-Procedure) Given 12/05/2011 10:03 AM EDT 110 mLs ceFURoxime (ZINACEF) injection 1.5 g Administer over 60 Minutes, ONCE PRN, Starting on Deborah 12/05/11 at 0747, Until Deborah 12/05/11 at 1202, Attach to 100mL of sodium chloride 0.9% Mini-Bag Plus, Intra-Operative (Intra-Procedure), Routine Given 12/05/2011 10:55 AM EDT 1 g Given 12/05/2011 10:40 AM EDT 1.5 g Given 12/05/2011 7:47 AM EDT 1.5 g electrolyte-R (PH 7.4) (NORMOSOL) injetion ONCE PRN, Starting on Deborah 12/05/11 at 1030, Until Fri12/05/11 at 1202, Intra-Operative (Intra-Procedure) Given 12/05/2011 10:30 AM EDT 2,600 mLs heparin (porcine) injection ONCE PRN, Starting on Deborah 12/05/11 at 1030, Until Deborah 12/05/11 at 1202, Intra-Operative (Intra-Procedure), Routine Given 12/05/2011 10:30 AM EDT 60,000 Units Lidocaine (PF) 20 mg/mL (2 %) ONCE PRN, Starting on Deborah 12/05/11 at 0956, Until Deborah 12/05/11 at 1202, Intra-Operative (Intra-Procedure), Routine Given 12/05/2011 10:07 AM EDT 100 mg Given 12/05/2011 9:56 AM EDT 200 mg mannitol 100 g/500 mL (20%) infusion ONCE PRN, Starting on Deborah 12/05/11 at 0907, Until Deborah 12/05/11 at 1202, Intra-Operative (Intra-Procedure) Given 12/05/2011 9:07 AM EDT 50 g protamine injection ONCE PRN, Starting on Deborah 12/05/11 at 1039, Until Deborah 12/05/11 at 1202, Intra-Operative (Intra-Procedure), Routine Given 12/05/2011 10:39 AM EDT 350 mg vancomycin (VANCOCIN) injection ONCE PRN, Starting on Deborah 12/05/11 at 0747, Until Deborah 12/05/11 at 1202, Intra-Operative (Intra-Procedure), Routine Given 12/05/2011 7:47 AM EDT 1 g documented in this encounter Active and Recently [...] Wiley Laughlin RN)1154 (Given - Provider: Nuno Thomas, JAMIN)1806 (Given - Provider: Nuno Thomas, JAMIN) 0000 (Given - Provider: Wiley Laughlin RN)0600 (Given - Provider: Wiley Laughlin RN)1200 (Given - Provider: Hayde Arce, RN)2011 (Given - Provider: Hayde Arce, RN) 0045 (Given - Provider: Stephani Schwab, RN)0640 (Given - Provider: Stephani Schwab, RN)1237 (Given - Provider: Nuno Thomas RN) AMIOdarone (CORDARONE; PACERONE) tablet 400 mg 400 mg, Oral, DAILY, First dose on Fri12/06/11 at 1200, Until Discontinued, Routine 0925 (Given - Provider: Nuno Thomas RN - Comment: 0.45) 0855 (Given - Provider: Joss García, JAMIN) 0819 (Given - Provider: Nuno Thomas RN [...] dose on Fri12/05/11 at 1300, Until Discontinued, Mission teeth., Routine 0900 (Not Given - Provider: [...] García RN) 0819 (Given - Provider: Nuno Thomas, JAMIN) furosemide (LASIX) injection 20 mg (CANCELED) 20 mg, Intravenous, 2 TIMES DAILY, First dose on Fri12/06/11 at 1130, Until Discontinued 0936 (Given - Provider: Nuno Thomas RN)1730 (Given - Provider: Nuno Thomas, JAMIN) 0854 (Given - Provider: Joss García RN)1700 (Given - Provider: Hayde Arce RN) 0824 (Given - Provider: Nuno Thomas, JAMIN) insulin aspart (NOVOLOG) PEN injection 3-6 Units [...] Medication not available)1627 (Given - Provider: Nuno Thomas, JAMIN) 0900 (Not Given - Provider: Joss García RN - Reason: Medication not available) 0816 (Not Given - Provider: Nuno Thomas RN - Reason: Patient/family refused) metoprolol (LOPRESSOR) tablet 12.5 mg (CANCELED) 12.5 mg, Oral, EVERY 12 HOURS SCHEDULED (2 times per day), First dose on Fri12/06/11 at 2100, Until Discontinued, Hold for SBP < 90; HR 55, Routine 09 (Given - Provider: Nuno Thomas, JAMIN) metoprolol tartrate (LOPRESSOR) tablet 25 mg 25 mg, Oral, EVERY 12 HOURS SCHEDULED (2 times per day), First dose (after last modification) on 12/07/11 at 2100, Until Discontinued, Hold for SBP < 90; HR 55, Routine 2100 (Given - Provider: Wiley Laughlin RN) 0854 (Given - Provider: Joss García RN)2099 (Given - Provider: Hayde Arce RN) 08 (Given - Provider: Nuno Thomas RN) multivitamin (THERAGRAN) tablet 1 tablet (CANCELED) 1 tablet, Oral, DAILY, First dose on Fri12/06/11 at 1530, Until Discontinued 0925 (Given - Provider: Nuno Thomas RN) 08 (Given - Provider: Joss García RN) 08 (Given - Provider: Nuno Thomas RN) potassium chloride (K-DUR) tablet 10 mEq (CANCELED) 10 mEq, Oral, 2 TIMES DAILY, First dose (after last modification) on Fri12/08/11 at 0900, Until Discontinued, Routine 0854 (Given - Provider: Joss García RN)2099 (Given - Provider: Hayde Arce RN) 08 (Given - Provider: Nuno Thomas RN) potassium chloride (K-DUR) tablet 30 mEq (COMPLETED) 30 mEq, Oral, ONCE, 1 dose, On Fri12/09/11 at 0815, Routine 08 (Given - Provider: Nuno Thomas RN) senna-docusate (PERICOLACE) 8.6-50 mg per tablet 2 tablet 2 tablet, Oral, DAILY, First dose on Fri12/06/11 at 2100, Until Discontinued, Post-op day 1, Routine 2099 (Given - Provider: Wiley Laughlin RN) 2099 (Not Given - Provider: Hayde Arce RN - Reason: Order parameters not met) simvastatin (ZOCOR) tablet 20 mg 20 mg, Oral, EVERY EVENING, First dose on Fri12/06/11 at 1700, Until Discontinued, Routine 1730 (Given - Provider: Nuno Thomas RN) 1700 (Given - Provider: Hayde Arce RN) sodium chloride 0.9 % flush 5 mL (CANCELED) 5 mL, Intravenous, EVERY 8 HOURS, First dose on Fri12/06/11 at 1500, Until Discontinued 0600 (Given - Provider: Wiley Laughlin RN)1400 (Given - Provider: Nuno Thomas, JAMIN)2300 (Given - Provider: Wiley Laughlin, JAMIN) 0854 (Given - Provider: Joss García, JAMIN)1500 (Given - Provider: Hayde Arce, JAMIN) 0045 (Given - Provider: Stephani Schwab, RN)0640 (Given - Provider: Stephani Schwab, JAMIN) PRN Medication Order 12/07/2011 12/08/2011 12/09/2011 OXYcodone (ROXICODONE) immediate release tablet 5-10 mg 5-10 mg, Oral, EVERY 4 HOURS PRN, Starting on Deborah 12/05/11 at 1206, Until 12/09/11 at 1506, Pain, For pain when taking [...] Routine documented in this encounter Care Teams Used Car Renovator Relationship Specialty Start Date End Date Kristian Machuca MD [address] [place] [address] [address] [facility] [address] [place] [address] PCP - General 04/03/10 05/15/21 documented as of this encounter
--- OUTSIDE RECORDS SUMMARY | 2024-01-09 01:27 | XMS_ITS | Encounter Summary ---
[place] [address] Care Team Providers Care Smoke Room Operator Name Role Phone Michael Franco MD Primary Care Provider [phone] Encounter Details Date Type Department Care Team (Late st Contact Info) Description 11/14/2011 9:10 AM EDT - 11/14/2011 10:10 AM EDT Surgery [place] [phone] Michael Simental MD [facility] [place] [address] CARDIAC CATHETERIZATION Social History Tobacco Use Types Packs/Day Years [...] AM EDT Office Visit Hematology/Oncology at [address] [phone] Miguelina Lucia APRN [facility] [place] [address] 02/27/2024 2:15 PM EDT Office Visit Dermatology at [address] [place] [address] Eliel Vanessa MD [address], [place] [address] documented as of this encounter Procedures Procedure Name Priority Date/Time Associated Diagnosis Comments CARDIAC CATHETERIZATION 11/14/19 12 10:54 AM EDT CAD,PRE-OP documented in this encounter Visit Diagnoses Not on filedocumented in this encounter Administered Medications Inactive Administered Medications - up to 3 most recent administrations Medication Order MAR Action Action Date Dose Rate Site diaZEPam (VALIUM) tablet 5 mg 5 mg, Oral, ONCE, 1 dose, On Deborah 11/14/11 at 1030, Cath (Day of Procedure), Routine Given 11/14/2011 10:30 AM EDT 5 mg diphenhydrAMINE (BENADRYL) tablet 25 mg 25 mg, Oral, ONCE, 1 dose, On Deborah 11/14/11 at 1030, Cath (Day of Procedure), Routine Given 11/14/2011 10:30 AM EDT 25 mg heparin (porcine) injection ONCE PRN, Starting on Deborah 7 at 1136, Until Deborah 7 at 1821, Intra-Operative (Intra-Procedure), Routine Given 11/14/2011 11:36 AM EDT 2,000 Units iohexol (OMNIPAQUE) 350 mg/mL injection ONCE PRN, Starting on Deborah 7 at 1208, Until Deborah 7 at 1821, Per Protocol, Cath (Intra-Procedure), Routine Given 11/14/2011 12:08 PM EDT 120 mLs lidocaine (PF) (XYLOCAINE) 10 mg/mL (1 %) injection ONCE PRN, Starting on Deborah 7 at 1126, Until Deborah 11/14/11 at 1821, Intra-Operative (Intra-Procedure), Routine Given 11/14/2011 11:31 AM EDT 10 mg Given 11/14/2011 11:26 AM EDT 10 mg sodium chloride 0.9% infusion 200 mL/hr, Intravenous, CONTINUOUS, Starting on Deborah 7 at 1030, Until Deborah 11/14/11 at 1821, Cath (Day of Procedure) New Bag 11/14/2011 10:30 AM EDT 200 mL/hr 200 mL/hr sodium chloride 0.9% infusion 200 mL/hr, Intravenous, CONTINUOUS, Starting on Deborah 11/14/11 at 1245, Until Deborah 11/14/11 at 1544 New Bag 11/14/2011 12:28 PM EDT 200 mL/hr 200 mL/hr documented in this encounter Active and Recently Administered Medications Times are shown in EDT. Scheduled Medication Order 11/12/2011 11/13/2011 11/14/2011 diaZEPam (VALIUM) tablet 5 mg (COMPLETED) 5 mg, Oral, ONCE, 1 dose, On Deborah 12 at 1030, Cath (Day of Procedure), Routine 1030 (Given - Provid er: Jackeline Rizzo RN) diphenhydrAMINE (BENADRYL) tablet 25 mg (COMPLETED) 25 mg, Oral, ONCE, 1 dose, On Deborah 12 at 1030, Cath (Day of Procedure), Routine 1030 (Given - Provid er: Jackeline Rizzo RN) Continuous Medication Order 11/12/2011 11/13/2011 11/14/2011 sodium chloride 0.9% infusion (CANCELED) 200 mL/hr, Intravenous, CONTINUOUS, Starting on Deborah 11/14/11 at 1030, Until Deborah 11/14/11 at 1821, Cath (Day of Procedure) 1030 (New Bag - Prov ider: Jackeline Rizzo RN)1228 (Stopped - Provider: Stella Mills RN) sodium chloride 0.9% infusion () 200 mL/hr, Intravenous, CONTINUOUS, Starting on Deborah 11/14/11 at 1245, Until Deborah 11/14/11 at 1544 1228 (New Bag - Prov ider: Stella Mills RN) PRN Medication Order 11/12/2011 11/13/2011 11/14/2011 heparin (porcine) injection (CANCELED) ONCE PRN, Starting on Deborah 11/14/11 at 1136, Until Deborah 7 at 1821, Intra-Operative (Intra-Procedure), Routine 1136 (Given - Provid er: Michael Simental MD) iohexol (OMNIPAQUE) 350 mg/mL injection (CANCELED) ONCE PRN, Starting on Deborah 7 at 1208, Until Deborah 712 at 1821, Per Protocol, Cath (Intra-Procedure), Routine 1208 (Given - Provid er: Michael Simental MD) lidocaine (PF) (XYLOCAINE) 10 mg/mL (1 %) injection (CANCELED) ONCE PRN, Starting on Deborah 7 at 1126, Until Deborah 712 at 1821, Intra-Operative (Intra-Procedure), Routine 1126 (Given - Provid er: Michael Simental MD)1131 (Given - Provider: Michael Simental MD) documented in this encounter Care Teams Smoke Room Operator Relationship Specialty Start Date End Date Michael Franco MD [address] [place] [address] PCP - General 04/03/10 05/15/21 documented as of this encounter
--- OUTSIDE RECORDS SUMMARY | 2024-01-09 01:27 | XMS_ITS | Encounter Summary ---
Author Organization [facility] [place] [address] Care Team Providers Care Esthetician Spa Name Role Phone Michael Franco MD Primary Care Provider [phone] Encounter Details Date Type Department Care Team (Latest Contact Info) Description 11/18/2011 10:53 AM EDT - 11/18/2011 11:59 PM EDT Hospital [place] [phone] Erinn Munoz MD [facility] [place] [address] Aortic stenosis Discharge Disposition: Home Social History [...] AM EDT Office Visit Hematology/Oncology at [address] [phone] Miguelina Lucia APRN [facility] [place] [address] 02/27/2024 2:15 PM EDT Office Visit Dermatology at [place] [address] [place] [address] Eliel Vanessa MD [address], MICHAEL [place] [address] documented as of this encounter Procedures Procedure Name Priority Date/Time Associated Diagnosis Comments DIFFERENTIAL, AUTOMATED Routine 11/18/2011 11:16 AM EDT TYPE AND SCREEN, SDP (FUTURE SURGERY, [facility] SAME DAY PROGRAM ONLY) Routine 11/18/2011 11:16 AM EDT Aortic stenosis ABO/RH TYPING Routine 11/18/2011 11:16 AM EDT Aortic stenosis CBC (WITH DIFF) Routine 11/18/2011 11:16 AM EDT Aortic stenosis ANTIBODY SCREEN Routine 11/18/2011 11:16 AM EDT Aortic stenosis HEMOGLOBIN A1C Routine 11/18/2011 11:16 AM EDT Aortic stenosis BASIC METABOLIC PANEL Routine 11/18/2011 11:16 AM EDT Aortic stenosis URINE CULTURE Routine 11/18/2011 10:59 AM EDT Aortic stenosis documented in this encounter Results * (ABNORMAL) DIFFERENTIAL, AUTOMATED (11/18/2011 11:16 AM EDT) Neutrophil % 68.6 34.0 - 71.0 % [facility]EN[facility]UM Neutrophil Absolute 3.61 1.50 - 6.30 x10(3)/mc L [facility] MILLENNIUM Lymph % 17.7(L) 19.0 - 53.0 % [facility] MILLENNIUM Lymphocytes Abs 0.9(L) 1.0 - 3.6 x10(3)/mc L [facility] MILLENNIUM Monocyte % 9.3 4.0 - 13.0 % CERNER MILLENNIUM Monocyte Abs 0.5 0.2 - 1.0 x10(3)/mc L CERNER MILLENNIUM Eos % 3.6 0.0 - 7.0 % CERNER MILLENNIUM Eosinophils Abs 0.2 0.0 - 0.5 x10(3)/mc L CERNER MILLENNIUM Basophil % 0.6 0.0 - 2.0 % CERNER MILLENNIUM Baso Absolute 0.0 0.0 - 0.2 x10(3)/mc L CERNER MILLENNIUM Immature Gran % 0.20 0.00 [...] Absolute 0.01 0.00 - 0.05 x10(3)/mc L EF[facility] SANCHEZ Blood specimen (specimen) 11/18/2011 11:16 AM EDT 11/18/2011 11:20 AM EDT Erinn Munoz MD HEMATOLOGY ORDERAB LES Performing Organization Address [facility] Co de Phone Number EFREM SANCHEZ * ANTIBODY SCREEN (11/18/2011 11:16 AM EDT) Ab Screen Interp Negative [facility] Expires at 2359 on: [id number] [facility] Comment: Corrected from 11/21/11 00:00:00 EDT [Unknown] on 12/03/11 11:14:34 EDT by Angelica Jacobo Blood specimen (specimen) 11/18/2011 11:16 AM EDT 11/18/2011 11:19 AM EDT Narrative Resulting Agency Comment Spec In Lab Erinn Munoz MD BLOOD BANK LAB ORD ERABLES Performing Organization Address [facility] Co de Phone Number EFREM SANCHEZ * ABO/RH TYPING (11/18/2011 11:16 AM EDT) ABORH Type A Neg [facility] Blood specimen (specimen) 11/18/2011 11:16 AM EDT 11/18/2011 11:19 AM EDT Narrative Resulting Agency Comment Spec In Lab Erinn Munoz MD BLOOD BANK LAB ORD ERABLES Performing Organization Address City/[facility] Co de Phone Number [facility] * Hemoglobin A1c (11/18/2011 11:16 AM EDT) [facility] Hemoglobin A1c 4.7 4.3 - 6.1 % [facility] Estimated Average Glucose See note mg/dL [facility] Comment: Estimated Average Glucose not appropriate for [...] into estimated average glucose values. ??Diabetes Care 2008:31(8):2962-3780. Blood specimen (specimen) 11/18/2011 11:16 AM EDT 11/18/2011 11:20 AM EDT Narrative Resulting Agency Comment Spec In Lab Erinn Munoz MD CHEMISTRY ORDERABL ES [facility] * (ABNORMAL) Basic Metabolic Panel (non-fasting) (11/18/2011 11:16 AM EDT) [facility] Glucose 98 60 - 199 mg/dL [facility] MILLENNIUM Comment:Diabetes: >=200 mg/d L plus symptoms Blood Urea Nitrogen 19 10 - 20 mg/dL CERNER MILLENNIUM Creatinine 0.77(L) 0.80 - 1.50 mg/dL [facility] MILLENNIUM Comment: Please note that the pediatric reference intervals supplied above were not validated at [facility]. Results from pediatric patients should be interpreted in conjunction to the patient's age, height and muscle mass. Sodium 137 135 - 145 mmol/L [facility] MILLENNIUM Potassium 4.2 3.5 - 5.0 mmol/L [facility] MILLENNIUM Comment: [...] References: http://nkdep.nih.gov/resources/NKDEP_Suggestn4Labs_0606_508.pdf http://www.kidney.org/professionals/kls/pdf/faq_gfr.pdf Aileen K, Lamont NA, Doimnic AK, Kuldip TS, Lenin AD, Cristy SHAWNA. Relative performance of the MDRD and CKD-EPI equations for estimating glomerular filtration rate among patients with varied clinical presentations. Clin J Am Soc Nephrol;6:1963-72. Blood specimen (specimen) 11/18/2011 11:16 AM EDT 11/18/2011 11:20 AM EDT Narrative Resulting Agency Comment Spec In Lab Erinn Munoz MD CHEMISTRY ORDERABL ES [facility] * [...] Platelet Volume 9.9 9.0 - 12.0 fL [facility] SANCHEZ Blood specimen (specimen) 11/18/2011 11:16 AM EDT 11/18/2011 11:20 AM EDT Narrative Resulting Agency Comment Spec In Lab Erinn Munoz MD HEMATOLOGY ORDERAB LES [facility] * Urine culture Clean Catch Urine (11/18/2011 10:59 AM EDT) Urine Culture ? Patient Name: DALY SR, MARIBELL B ?Ordered By: ERINN MUNOZ ? MR#: [id number] ?LOC: ??4V ? /Sex: ?? 2 (71 years), ? Male ? PROCEDURE: Urine Culture ?SOURCE: U CC ? COLLECTED: 11/18/2011 10:59 ? STARTED: 11/18/2011 11:42 ? FINAL REPORT ? Final Report ? Verified: 10:52 ? No growth (Less than 1,000 cfu/ml). ? ____ EFREM SANCHEZ Urine specimen obtained by clean catch procedure (specimen) 11/18/2011 10:59 AM EDT 11/18/2011 11:35 AM EDT Narrative Resulting Agency Comment Spec In Lab Erinn Munoz MD MICROBIOLOGY - GEN ERAL ORDERABLES [facility] documented in this encounter Visit Diagnoses Diagnosis Aortic stenosis Aortic valve disorders documented in this encounter Care Teams Esthetician Spa Relationship Specialty Start Date End Date Michael Franco MD [address] [place] [address] PCP - General 04/03/10 05/15/21 documented as of this encounter
--- OUTSIDE RECORDS SUMMARY | 2024-01-09 01:27 | XMS_ITS | Encounter Summary ---
[place] [address] Care Team Providers Care Deburrer Strip Name Role Phone Michael Franco MD Primary Care Provider [phone] Encounter Details Date Type Department Care Team (Late st Contact Info) Description 11/18/2011 11:20 AM EDT [place] [address] Aortic stenosis Social History Tobacco [...] as of this encounter Progress Notes * Ashtyn Persaud RN - 11/18/2011 11:08 AM EDT Patient Name: Ayad Kauffman Sr. Patient Age: 71 y.o. Birthdate: 1940 Admit date: (Not on file) Attending Physician: No att. providers found Patient arrived in [facility] for CT teaching and pre-op testing. Written and verbal instructions along with Hibiclens soap given to Pt. The heart surgery pathway and discharge planning written information was given and reviewed with Pt. We discussed the pain management scale, incentive spirometry and TCDB exercises. The patient states an understanding of our discussion and knows to call Dr Munoz or preadmissiontesting with questions or concerns. Patients states that she has witnessed Ayad having sleep apnea. He states that he has never had asleep study. Brit ADAIR made aware Labs, urine culture and EKG done in PAT today. Sent for a chest xray today. documented in this encounter Plan of Treatment Upcoming Encounters Date Type Department Care Team (Late st Contact Info) Description 01/20/2024 9:30 AM EDT Office Visit Hematology/Oncology at [address] [phone] Miguelina Lucia APRN [facility] [place] [address] 02/27/2024 2:15 PM EDT Office Visit Dermatology at [place] [address] [place] [address] Eliel Vanessa MD [address], [place] [address] Pending Results Name Type Priority Associated Diagnoses Date /Time EKG 12 Lead ECG Routine Aortic stenosis 11/18/2011 11:12 AM EDT documented as of this encounter Procedures Procedure Name Priority Date/Time Associated Diagnosis Comments EKG 12-LEAD Routine 11/18/2011 11:12 AM EDT EKG 12-LEAD Routine 11/18/2011 11:12 AM EDT Aortic stenosis documented in this encounter Results * EKG 12-LEAD (11/18/2011 11:12 AM EDT) Ventricular rate 73 BPM MUSE SYSTEM Atrial Rate 73 BPM MUSE SYSTEM P-R Interval 182 ms MUSE SYSTEM QRS Duration 106 ms MUSE SYSTEM Q-T Interval 408 ms MUSE SYSTEM QTC Calculated (Bezet) 449 ms MUSE SYSTEM Calculated P Magnolia 13 degrees MUSE SYSTEM Calculated R Magnolia -9 degrees MUSE SYSTEM Calculated T Magnolia 19 degrees MUSE SYSTEM INTERPRETATION Sinus rhythm Occasional Premature ventricular complexes Otherwise normal ECG When compared with ECG of 05-NOV-2006 14:46, Premature ventricular complexes are now Present Confirmed by MD Lion Douglas ([id number]) on 11/19/2011 8:48:15 AM MUSE SYSTEM 11/18/2011 11:1 2 AM EDT 11/19/2011 8:48 AM EDT Kehinde Munoz MD ECG ORDERABLES MUSE SYSTEM documented in this encounter Visit Diagnoses Diagnosis Aortic stenosis Aortic valve disorders documented in this encounter Care Teams Deburrer Strip Relationship Specialty Start Date End Date Micahel Franco MD [address] [facility] [place] [address] PCP - General 04/03/10 05/15/21 documented as of this encounter
--- OUTSIDE RECORDS SUMMARY | 2024-01-09 01:28 | XMS_ITS | Encounter Summary ---
Author Organization [facility] Address [address] [place] [address] Care Team Providers Care Riverboat Captain Name Role Phone Unavailable Primary Care Provider Unavailabl e Encounter Details Date Type Department Care Team (Late st Contact Info) Description 01/28/2011 Results Only [facility] Laboratory Services - [facility] ([facility] [address], [place] [id number] Scottie Starks MD [address] [place] [address] Social History Tobacco Use Types Packs/Day Years Used Date Smoking Tobacco: Never Assessed Sex and Gender Information Value Date Recorded Sex Assigned at Not on file Gender Identity Not on file Sexual Orientation Not on file documented as of this encounter Plan of Treatment Not on file documented as of this encounter Procedures Procedure Name Priority Date/Time Associated Diagnosis Comments SURGICAL PATHOLOGY Routine 01/28/2011 0:00 EDT documented in this encounter Results * SURGICAL PATHOLOGY (01/28/2011 0:00 EDT) Pathology Report: SURGICAL PATHOLOGY REPORT ? Reports generated via electronic interface contain original data; ? however they are lacking the format of the original report. ? Caution should be taken when reading/interpreti ng unformatted reports. ? Name: ? DALY, MARIBELL B SR ? Accession #: ? [id number] ? : ? 1940 (Age: 70) ??M ? Collect Date: ? 01/28/2011 ? Location: ? [facility] ? Receive Date: ? 01/28/2011 ? Provider: SCOTTIE STARKS MD ? Copy to: KRISTIAN MACHUCA MD ? Final Pathologic Diagnosis: ? A. ?Terminal ileum, biopsy: ? 1. ?Ileal mucosa with no specific pathologic features. ? B. ?Ileocecal valve, biopsy: ? 1. ?Ileocolonic mucosa with chronic active colitis. ??See comment. ? C. ?Colon, sigmoid, polyp, biopsy: ? 1. ?Hyperplastic polyp. ??See comment. ? D. ?Rectum, random, biopsies: ? 1. ?? Active proctitis with architectural disarray. ??See comment. ? Comment: ? The biopsies from the ileocecal valve (B) and the rectum (D) show active ?? inflammation with crypt abscess formation and predominantly surface epithelial ?? inflammation. ??Although areas of definitive chronicity are limited to the ? ileocecal valve (B), the submitted biopsies are worrisome for an early, evolving inflammatory bowel disease. ??No granulomas are identified. ??Clinical correlation and exclusion of an infectious etiology are essential. ??Dr. Nisa Bean has ?? reviewed this case in consultation and agrees with the above interpretation. ? Deeper levels were examined on specimen (C). ??This case was discussed with ?? Walko on 02/01/11 at 10:00 am. ??(Dr. Garay)/[facility] ? Document reviewed and electronically signed by: ? MARKUS TELLOOF MD ? Report ??Date: 02/04/2011 13:31 ? By the signature above, the attending physician certifies that he/she has ? personally conducted a gross and/or microscopic examination of the described ? specimens and rendered or confirmed the above diagnosis. ? Specimen(s) Received: ? A. ?Bx terminal ileum ? B. ? Bx ileocecal valve ? C. ? Sigmoid polyp ? D. ? Random rectal bx ? Clinical History: ? Colorectal screen ? Gross Description: ? Received in formalin labelled Daly, Maribell and bx terminal ileum are ?? two pink-gore irregular soft tissues, 0.4 x 0.2 x 0.2 cm and 0.6 x 0.2 x 0.1 cm, submitted in toto in (A). ? Received in formalin labelled Daly, Maribell and bx ileocecal valve are two ?? pink-gore irregular soft tissues, 0.2 x 0.2 x 0.1 cm and 0.3 x 0.2 x 0.2 cm, ? submitted in toto in (B). ? Received in formalin labelled Daly Maribell and sigmoid polyp is a single 0.3 x 0.3 x 0.2 cm pink-gore irregular soft tissue, submitted in toto in (C). ? Received in formalin labelled Maribell Kauffman and random rectal biopsy are two pink-gore irregular soft tissues, 0.2 x 0.2 x 0.2 cm and 0.5 x 0.2 x 0.1 cm, ? submitted in toto in (D). Shawanda Valdovinos)/mpl ? End of Report ? ERVIN MCPHERSON 01/28/2011 01/28/2011 20: 36 EDT Scottie Starks MD PATHOLOGY ORDERABLES Performing Organization Address City/State/[facility] Co de Phone Number [place] [phone] documented in this encounter Visit Diagnoses Not on filedocumented in this encounter
--- OUTSIDE RECORDS SUMMARY | 2024-01-09 01:28 | XMS_ITS | Encounter Summary ---
Author Organization [facility] [place] [address] Care Team Providers Care Pouncing Machine Operator Name Role Phone Michael Franco MD Primary Care Provider [phone] Reason for Visit * Reason Comments Radiation Treatment Encounter Details Date Type Department Care Team (Late st Contact Info) Description 05/15/2011 5:45 PM EST Follow-Up Radiation Oncology at [address] [phone] Michael Olson MD [facility] [place] [address] Prostate cancer (Primary Dx) Discharge Disposition: Home [...] Sign Reading Time Taken Comments Blood Pressure 152/90 05/15/2011 6:00 PM EST Pulse 76 05/15/2011 6:00 PM EST Temperature - - Respiratory Rate - - Oxygen Saturation 97% 05/15/2011 6:00 PM EST Inhaled Oxygen Concentration - - Weight 114.1 kg (251 lb 8 oz) 05/15/2011 6:00 PM EST Height - - Body Mass Index 33.18 10/31/2010 9:00 AM EDT documented in this encounter Progress Notes * Michael Olson MD - 05/16/2011 8:11 AM EST ON TREATMENT VISIT: DATE:05/15/2011 PATIENT STATUS: CaP, S/P LRP 2007; GS 7/10, no ISAAK, Stage: [id number] PSA undetcted until 12/18, now = 0.13 . TREATMENT PLAN: RADIATION. On hormones Site Technique Dose/ Fraction Fraction Number MeV p e TOTAL DOSE Treatment Dates PTV 1 P bed + LN IMRT CBCT daily x 1 week weekly thereafter ,KV other days 180 25 p 4500 05-14 to DOSE to DATE:360 cGy in 2 FX RADIATION TREATMENT IMAGING: matches original approved images ON TREATMENT EVALUATION: MEDICAL: 0 PHYSICAL: 0 AIDS: LABS: TOXICITY:0 REFER TO NURSES UPDATED NOTES RESPONSE TO TREATMENT: MANAGEMENT PLAN: CONTINUE TREATMENT PLANNED: XX CHANGE TREATMENT HOLD TREATMENT STOP TREATMENT Discussion time with patient (face to face)10 min. documented in this encounter Plan of Treatment Upcoming Encounters Date Type Department Care Team (Late st Contact Info) Description 01/20/2024 9:30 AM EDT Office Visit Hematology/Oncology at [address] [phone] Miguelina Lucia APRN [facility] [place] [address] 02/27/2024 2:15 PM EDT Office Visit Dermatology at [address] [place] [address] Eliel Vanessa MD [address], MICHAEL [place] [address] documented as of this encounter Visit Diagnoses Diagnosis Prostate cancer- Primary Malignant neoplasm of prostate documented in this encounter Care Teams Pouncing Machine Operator Relationship Specialty Start Date End Date Michael Franco MD [address] [place] [address] PCP - General 04/03/10 05/15/21 documented as of this encounter
--- OUTSIDE RECORDS SUMMARY | 2024-01-09 01:28 | XMS_ITS | Encounter Summary ---
Author Organization [facility] [place] [address] Care Team Providers Care Principal Network Engineer Name Role Phone Michael Franco MD Primary Care Provider [phone] Reason for Visit * Reason Onset Date Comments Abnormal Labs 07/12/2011 calling inq uiring about abnormal labs drawn on 07/03 Encounter Details Date Type Department Care Team (Late st Contact Info) Description 07/12/2011 Telephone Hematology Oncology at [address] [phone] Suri Amador, RN Abnormal Labs ( calling inquiring about abnormal labs drawn on 07/03) Social History Tobacco Use Types Packs/Day Years Used Date Smoking Tobacco: Former Alcohol Use Standard Drinks/Week Comments Yes 7 (1 standard drink = 0.6 oz pur e alcohol) Sex and Gender Information Value Date Recorded Sex Assigned at Not on file Gender Identity Not on file Sexual Orientation Not on file documented as of this encounter Miscellaneous Notes * Telephone Encounter - Suri Amador, RN - 07/15/2011 3:36 PM EST Phone call back from Mrs. Kauffman to inquire as to if Dr. Meneses had reviewed patient's labs from 07/03/11. Assured her that message was sent to Dr. Meneses for review and that he will be in this clinic on Friday, so that we will get back to them Friday at the latest. She states she just feels that they would like his official OK as to how the labs are, as they do not want to worry about them, but several were modestly abnormal. She also requested that patient be able to have a PSA drawn at [facility]. She states last PSA done at [facility] gives general less than amounts and would prefer to have drawn at [facility] so that they will get an exact amount. They wondered if Dr. Meneses would be willing to order that. Message forwarded to Dr. Meneses and Lucretia Slaughter, JAMIN * Telephone Encounter - Suri Amador RN - 07/12/2011 12:17 PM EST Mrs. Kauffman called inquiring about lab results that patient has from 07/03/11 at [facility]. She was most concerned about CBC and numerous values that were reported as abnormal. Reassured that all were just marginally out of the realm of normal, but that we would forward message and concerns that they haveto Dr. Meneses for review. Mrs. Sanchez is inquiring as to if they should be concerned and if Dr. Rahul matrin would make any suggestions to restore values to within normal range. Message forwarded to Dr. Meneses for response. documented in this encounter Plan of Treatment Upcoming Encounters Date Type Department Care Team (Late st Contact Info) Description 01/20/2024 9:30 AM EDT Office Visit Hematology/Oncology at [address] [phone] Miguelina Lucia APRN [facility] MEDICAL [place] [address] 02/27/2024 2:15 PM EDT Office Visit Dermatology at [address] [place] [address] Eliel Vanessa MD [address], MICHAEL [place] [address] documented as of this encounter Visit Diagnoses Not on filedocumented in this encounter Care Teams Principal Network Engineer Relationship Specialty Start Date End Date Michael Franco MD [address] [place] [address] PCP - General 04/03/10 05/15/21 documented as of this encounter
--- OUTSIDE RECORDS SUMMARY | 2024-01-09 01:28 | XMS_ITS | Encounter Summary ---
Author Organization [facility] [place] [address] Care Team Providers Care Business Administration Program Chair Name Role Phone Kristian Franco MD Primary Care Provider [phone] Reason for Visit * Reason Comments Prostate Cancer Encounter Details Date Type Department Care Team (Late st Contact Info) Description 10/31/2010 10:00 AM EDT Office Visit Radiation Oncology at [address] [phone] Kristian Olson MD [facility] [place] [address] Prostate cancer (Primary Dx) Discharge [...] Sign Reading Time Taken Comments Blood Pressure 129/80 10/31/2010 9:00 AM EDT Pulse 68 10/31/2010 9:00 AM EDT Temperature 36.9 ??C (98.4 ??F) 10/31/2010 9:00 AM ED T Respiratory Rate 16 10/31/2010 9:00 AM EDT Oxygen Saturation 70% 10/31/2010 9:00 AM EDT Inhaled Oxygen Concentration - - Weight 112 kg (247 lb) 10/31/2010 9:00 AM EDT Height 185.4 cm (6' 1) 10/31/2010 9:00 AM EDT Body Mass Index 32.59 10/31/2010 9:00 AM EDT documented in this encounter Progress Notes * Kristian Olson MD - 10/31/2010 9:[address] Kristian Li has requested radiaion therapy input regarding Mr. Kauffman's recent upward trend of the PSA, that have undergone one previous blip. Mr Kauffman is a 69 YO man who on 11-11-2006 underwent a robotic assisted laprocospic radical prostatectomy by Dr. Li. Pre-op PSA=4.8. The surgical path: Provider: KRISTIAN LI PtEstela Name: DALY MARIBELL PAULINO ---Pathologic Diagnosis--- Specimen type: Prostatectomy Histologic type: Adenocarcinoma Miami grade: 3+4 Miami score: 7 Location of tumor: Bilateral lobes [...] 0.04 12/19 0.06 03/21 0.07 09/19 0.09 Physical Exam Constitutional: He is oriented to person, place, and time and well-developed, well-nourished, and in no distress. HENT: Head: Normocephalic. Eyes: EOM are normal. Pupils are equal, round, and reactive to light. Cardiovascular: Normal rate and regular rhythm. Pulmonary/Chest: Effort normal. Genitourinary: Rectal exam shows no external hemorrhoid, no fissure, no laceration, no mass and no tenderness. Guaiac negative stool. Prostate bed flat without nodularity or induration. Hemoccult neg Musculoskeletal: Normal range of motion. Lymphadenopathy: Right: No inguinal adenopathy present. Left: No inguinal adenopathy present. Neurological: He is alert and oriented to person, place, and time. Gait normal. Skin: Skin is warm. Psychiatric: Memory, affect and judgment normal. His mood appears anxious. The PSA rise is slow and there has yao one previous rise to nearly the same level with subsequent fall. The present rise may be a similar, but with 3 consecutive increases (over nine months) combinedwith the pathology of four years ago this may be true recurrence. At this session the patient, his , and I agreed to obtain a PSA in 3 month--if elevation continues,salvage radiation will be recommended. Review of Systems Constitutional: Negative. HENT: Positive for hearing loss (right side). Eyes: Negative. Respiratory: Positive for shortness of breath. Cardiovascular: Negative. Aortic stenosis Gastrointestinal: Negative. Genitourinary: Negative. Musculoskeletal: Positive for joint pain (left knee). Skin: Negative. Neurological: Positive for tingling and sensory change. Carpel tunnel in left hand. Endo/Heme/Allergies: Positive for environmental allergies. Psychiatric/Behavioral: Patient is not claustrophobic. IPSS Questionnaire (AUA-7): Over the past month??? 1) How often have you had a sensation of not emptying your bladder completely after you finish urinating? 0 - Not at all 2) How often have you had to urinate again less than two hours after you finished urinating? 1 - Less than 1 time in 5 3) How often have you found you stopped and started again several times when you urinated? 0 - Not at all 4) How difficult have you found it to postpone urination? 0 - Not at all 5) How often have you had a weak urinary stream? 0 - Not at all 6) How often have you had to push or strain to begin urination? 0 - Not at all 7) How many times did you most typically get up to urinate from the time you went to bed until the time you got up in the morning? 0 - None Total score: 1 0-7 mildly symptomatic 8-19 moderately symptomatic 20-35 severely symptomatic Sexual Health Inventory For Men 1 How do You rate your Confidence that you could get and keep and erection? Very Low 1 Low 2 Moderate 3 High 4 Very High 5 2 When you had erections with sexual stimulation, how often were your erection hard enough for penetration? No Sexual Activity 0 Never or Almost Never 1 A Few Times (Much less than Half) 2 Sometimes (About Half the time) 3 Most Times (much more than half the time) 4 Almost Always or Always 5 3 How often are you able to maintain an erection after penetration? Did not attempt intercourse 0 Never or Almost Never 1 A few times (much less that half) 2 Sometimes (About Half the time) 3 Most Times (much more than half the time) 4 Almost Always or Always 5 4 How difficult is it to maintain you???re an erection to completion of intercourse? Did not attempt intercourse 0 Never or Almost Never 1 A few times (much less that half) 2 Sometimes (About Half the time) 3 Most Times (much more than half the time) 4 Almost Always or Always 5 5 How often is intercourse satisfactory? Did not attempt intercourse 0 Never or Almost Never 1 A few times (much less that half) 2 Sometimes (About Half the time) 3 Most Times (much more than half the time) 4 Almost Always or Always 5 Total: 2 Prior Treatement Site Treated/Last Treatment Facility Radiation n Chemotherapy n Hormone Tx n Assessment and Recommendations: Biochemical recurrence and the aspect of adjuvant and specifically salvage radiation, side effects,and benefit of both were dicussed in detail. After discussion it was decided to obtain one more PSA in 3 months and review options at the time. In my absence please have Dr Perry review this case. documented in this encounter Plan of Treatment Upcoming Encounters Date Type Department Care Team (Late st Contact Info) Description 01/20/2024 9:30 AM EDT Office Visit Hematology/Oncology at [address] [phone] Miguelina Lucia APRN [facility] MEDICAL [place] [address] 02/27/2024 2:15 PM EDT Office Visit Dermatology at [address] [place] [address] Eliel Vanessa MD [address] [facility], [place] [address] documented as of this encounter Visit Diagnoses Diagnosis Prostate cancer- Primary Malignant neoplasm of prostate documented in this encounter Care Teams Business Administration Program Chair Relationship Specialty Start Date End Date Kristian Franco MD [address] [facility] [facility] [place] [address] PCP - General 04/03/10 05/15/21 documented as of this encounter
--- OUTSIDE RECORDS SUMMARY | 2024-01-09 01:28 | XMS_ITS | Encounter Summary ---
[place] [address] Care Team Providers Care Locomotive Operator Helper Name Role Phone Michael Franco MD Primary Care Provider [phone] Reason for Visit * Reason Comments Follow-up Encounter Details Date Type Department Care Team (Late st Contact Info) Description 10/09/2010 1:45 PM EDT [place] [address] Kalpana French APRN [facility] [place] [place] [address] Michael Li MD [facility] [place] [address] Elevated PSA; Prostate cancer Discharge Disposition: Home Social History Tobacco Use Types Packs/Day Years Used Date Smoking Tobacco: Never Assessed Sex and Gender Information Value Date Recorded Sex Assigned at Not on file Gender Identity Not on file Sexual Orientation Not on file documented as of this encounter Progress Notes * Michael Li - 10/11/2010 8:07 AM EDT See Ms Bullard's note. documented in this encounter Plan of Treatment Upcoming Encounters Date Type Department Care Team (Late st Contact Info) Description 01/20/2024 9:30 AM EDT Office Visit Hematology/Oncology at [address] [phone] Miguelina Lucia APRN [facility] [place] [address] 02/27/2024 2:15 PM EDT Office Visit Dermatology at [place] [address] [place] [phone] Eliel Vanessa MD [address], [place] [address] documented as of this encounter Procedures Procedure Name Priority Date/Time Associated Diagnosis Comments PSA (ULTRASENSITIVE) Routine 10/09/2010 1:08 PM EDT Elevated PSA documented in this encounter Results * PSA (10/09/2010 1:08 PM EDT) Prostate Specific Antigen (Ultrasensitiv e) 0.09 0.00 - 4.00 ng/mL [facility] Blood specimen (specimen) 10/09/2010 1:08 PM EDT 10/09/2010 1:17 PM EDT Michael Zapata MD CHEMISTRY ORDERABLES [facility] documented in this encounter Visit Diagnoses Diagnosis Elevated PSA Elevated prostate specific antigen (PSA) Prostate cancer Malignant neoplasm of prostate documented in this encounter Care Teams Locomotive Operator Helper Relationship Specialty Start Date End Date Michael Franco MD [address] [place] [address] PCP - General 04/03/10 05/15/21 documented as of this encounter
--- OUTSIDE RECORDS SUMMARY | 2024-01-09 01:28 | XMS_ITS | Encounter Summary ---
[place] [address] Care Team Providers Care Associate Professor Of Kinesiology Name Role Phone Michael Franco MD Primary Care Provider [phone] Encounter Details Date Type Department Care Team (Late st Contact Info) Description 04/15/2011 Telephone [place] [address] Bettie Wilson, RN Social History Tobacco Use Types Packs/Day Years Used Date Smoking Tobacco: Former Alcohol Use Standard Drinks/Week Comments Yes 7 (1 standard drink = 0.6 oz pur e alcohol) Sex and Gender Information Value Date Recorded Sex Assigned at Not on file Gender Identity Not on file Sexual Orientation Not on file documented as of this encounter Miscellaneous Notes * Telephone Encounter - Bettie Wilson, RN - 04/15/2011 8:41 AM EST Message copied by BETTIE WILSON on FriApr 15, 2011 8:41 AM ------ Message from: HECTOR BRUNO Created: Ophelia Apr 14, 2011 1:53 PM Ochoa: Please arrange delay of start for Mr. Kauffman till after the first of the New Year. [place]: Please call him and let him know this is not a problem -- since he is already on hormones, start can be delayed by several weeks (even a couple of months) without any concerns. Thanks, [facility] I spoke with Mrs Fajardo, 04/15/11, and told her it was fine to delay Mr Payne prostate tx until after the new year. [place] ----- Message ----- From: Bettie Wilson, RN Sent: 04/10/2011 2:42 PM To: Hector Bruno MD Mr Payne would like to delay his prostate radiation to the end of Apr, instead of 04/22/11. His knee meniscus surgery has been delayed d/t need to get a stress test, (itzel.04/15/11) first. He is worried if there was a time limit, as he started Casodex 02/05/11 and Lupron 30mg 02/21/11. documented in this encounter Plan of Treatment Upcoming Encounters Date Type Department Care Team (Late st Contact Info) Description 01/20/2024 9:30 AM EDT Office Visit Hematology/Oncology at [address] [phone] Miguelina Lucia MANAGER [facility] [place] [address] 02/27/2024 2:15 PM EDT Office Visit Dermatology at [address] [place] [phone] Eliel Vanessa MD [address] [place] [address] RD, [place] [address] documented as of this encounter Visit Diagnoses Not on filedocumented in this encounter Care Teams Associate Professor Of Kinesiology Relationship Specialty Start Date End Date Michael Franco MD [address] [facility] [place] [address] PCP - General 04/03/10 05/15/21 documented as of this encounter
--- OUTSIDE RECORDS SUMMARY | 2024-01-09 01:28 | XMS_ITS | Encounter Summary ---
Author Organization [facility] Address [address] [place] [address] Care Team Providers Care Vegetable Farm Manager Name Role Phone Unavailable Primary Care Provider Unavailabl e Encounter Details Date Type Department Care Team (Late st Contact Info) Description 09/30/2006 Results Only [facility] [address] [place] [address] aTng Kaufman MD [address] [place] [address] Social History Tobacco Use Types Packs/Day Years Used Date Smoking Tobacco: Never Assessed Sex and Gender Information Value Date Recorded Sex Assigned at Not on file Gender Identity Not on file Sexual Orientation Not on file documented as of this encounter Plan of Treatment Not on file documented as of this encounter Procedures Procedure Name Priority Date/Time Associated Diagnosis Comments SURGICAL PATHOLOGY Routine 09/30/2006 0:00 EDT documented in this encounter Results * SURGICAL PATHOLOGY (09/30/2006 0:00 EDT) Pathology Report: SURGICAL PATHOLOGY REPORT Reports generated via electronic interface contain original data; however they are lacking the format of the original report. Caution should be taken when reading/interpreti ng unformatted reports. Name: ? MARIBELL KAUFFMAN ? Accession #: ? [id number] ? : ? 1940 (Age: 65) ??M ? Collect Date: ? 09/30/2006 ? Location: ? [facility] ? Receive Date: ? 09/30/2006 ? Provider: TANG KAUFMAN MD Copy to: KRISTIAN BARCENAS MD ? Final Pathologic Diagnosis: A. ?Prostate, right apex, needle core biopsy: 1. ?Adenocarcinoma of the prostate. ? - [place] pattern 4+3=7. - 50% of prostatic tissue involved by tumor. - Tumor involves two of two cores. ? 2. ?? High grade prostatic intraepithelial neoplasia (PIN). ? B. ?? Prostate, right mid, needle core biopsy: ?1. ?? Adenocarcinoma of the prostate. ?- Michelle pattern 3+4=7. ? - 20% of prostatic tissue involved by tumor. - Tumor involves two of two cores. ? 2. ?? High grade prostatic intraepithelial neoplasia (PIN). ? C. ?? Prostate, right base, needle core biopsy: ?1. ??Adenocarcinoma of the prostate. ? - Michelle pattern 3+4=7. ? - Less than 5% of prostatic tissue involved by tumor. ? - Tumor involves one of one core. ? D. ?? Prostate, left apex, needle core biopsy: ?1. ?? Adenocarcinoma of the prostate. ?- [place] pattern 3+4=7. ?- 70% of prostatic tissue involved by tumor. ?- Tumor involves two of two cores. ? E. ?? Prostate, left mid, needle core biopsy: ?1. ?? Adenocarcinoma of the prostate. ? - [place] pattern 3+4=7. ? - Less than 5% of prostatic tissue involved by tumor. ? - Tumor involves one of two cores. ? - Perineural invasion is identified. ? F. ?? Prostate, left base, needle core biopsy: ?1. ?? Benign prostatic glands and stroma. ? Document reviewed and electronically signed by: JOHN GLYNN MD Report ??Date: 10/02/2006 17:21 By the signature above, the attending physician certifies that he/she has personally conducted a gross and/or microscopic examination of the described specimens and rendered or confirmed the above diagnosis. Specimen(s) Received: A. ?Rt apex (#1) B. ? Rt mid (#2) C. ? Rt base (#3) D. ? Lt apex (#4) E. ? Lt mid (#5) F. ? Lt base (#6) Clinical History: ? PSA 4-8/ 10% free Gross Description: ? Received in formalin labelled [place] and #1 - Rt apex are two 0.1 cm in diameter cores of gore-white tissue which measure 1.6 and 2.0 cm in length. The specimen is entirely submitted in one cassette as (A). Received in formalin labelled [place] and #2 - Rt mid are two 0.1 cm in diameter cores of gore-white tissue which measure 1.5 and 1.7 cm in length. The specimen is entirely submitted in one cassette as (B). Received in formalin labelled [place] and #3 - Rt base is a 0.1 cm in diameter cores of gore-white tissue which measures 1.5 cm in length. The specimen is entirely submitted in one cassette as (C). Received in formalin labelled [place] and #4 - Lt apex are two cores of gore-white tissue which measure 1.5 and 1.8 cm in length. The specimen is entirely submitted in one cassette as (D). Received in formalin labelled [place]aly and #5 ??Lt mid are two 0.1 cm in diameter cores of gore-white tissue which measure 1.5 and 2.0 cm in length. The specimen is entirely submitted in one cassette as (E). Received in formalin labelled [place] and #6 ??Lt base is a ??0.1 cm in diameter cores of gore-white tissue which measures 1.5 cm in length. The specimen is entirely submitted in one cassette as (F). (Dr. Kline)/[facility] End of Report ERVIN MCPHERSON 09/30/2006 09/30/2006 15: 01 EDT Tang Kaufman MD PATHOLOGY ORDERABLES ERVIN MCPHERSON [address] [place] [address] documented in this encounter Visit Diagnoses Not on filedocumented in this encounter
--- OUTSIDE RECORDS SUMMARY | 2024-01-09 01:28 | XMS_ITS | Encounter Summary ---
[place] [address] Care Team Providers Care Vitreo Retinal Surgeon Name Role Phone Michael Franco MD Primary Care Provider [phone] Reason for Visit * Reason Onset Date Comments Follow-up 02/18/2011 Encounter Details Date Type Department Care Team (Late st Contact Info) Description 02/18/2011 Telephone [place] [phone] Hector Perry MD [facility] [place] [address] Follow-up Social History Tobacco Use Types Packs/Day Years Used Date Smoking Tobacco: Former Alcohol Use Standard Drinks/Week Comments Yes 7 (1 standard drink = 0.6 oz pur e alcohol) Sex and Gender Information Value Date Recorded Sex Assigned at Not on file Gender Identity Not on file Sexual Orientation Not on file documented as of this encounter Miscellaneous Notes * Telephone Encounter - Tea Pickering RN - 02/18/2011 3:44 PM EDT I spoke with Ms. Kauffman today regarding when her started his casodex. I was informed that hestarted his casodex 02/05/11. He would like to have his lupron shot at [facility] documented in this encounter Plan of Treatment Upcoming Encounters Date Type Department Care Team (Late st Contact Info) Description 01/20/2024 9:30 AM EDT Office Visit Hematology/Oncology at [address] [phone] Miguelina Lucia APRN [facility] [place] [address] 02/27/2024 2:15 PM EDT Office Visit Dermatology at [place] [address] [place] [address] Eliel Vanessa MD [address], MICHAEL [place] [address] documented as of this encounter Visit Diagnoses Not on filedocumented in this encounter Care Teams Vitreo Retinal Surgeon Relationship Specialty Start Date End Date Michael Franco MD [address] [place] [address] PCP - General 04/03/10 05/15/21 documented as of this encounter
--- OUTSIDE RECORDS SUMMARY | 2024-01-09 01:28 | XMS_ITS | Encounter Summary ---
Author Organization [facility] [place] [address] Care Team Providers Care Haul Driver Name Role Phone Michael Franco MD Primary Care Provider [phone] Encounter Details Date Type Department Care Team (Latest Contact Info) Description 02/04/2011 8:40 AM EDT - 02/04/2011 11:59 PM EDT Hospital [place] [phone] Michael Li MD [facility] [place] [address] Prostate cancer Discharge Disposition: Home Social History [...] HCL/CHONDRO EVANS A (GLUCOSAMINE-CHONDROITI N ORAL) 03/13/2010 bicalutamide (CASODEX) 50 mg tablet Take 1 tablet by mouth daily. 120 tablet 0 02/04/2011 06/05/2011 aspirin 325 mg tablet Take 325 mg by mouth daily. 10/23/2011 lisinopril (PRINIVIL;ZESTRIL) 10 mg tablet Take 10 [...] AM EDT Office Visit Hematology/Oncology at [address] [phone] Miguelina Lucia APRN [facility] [place] [address] 02/27/2024 2:15 PM EDT Office Visit Dermatology at [place] [address] [place] [address] Eliel Vanessa MD [address], [place] [address] documented as of this encounter Procedures Procedure Name Priority Date/Time Associated Diagnosis Comments PSA (ULTRASENSITIVE) Routine 02/04/2011 8:55 AM EDT Prostate cancer documented in this encounter Results * PSA (02/04/2011 8:55 AM EDT) Prostate Specific Antigen (Ultrasensitiv e) 0.13 0.00 - 4.00 ng/mL [facility] Blood specimen (specimen) 02/04/2011 8:55 AM EDT 02/04/2011 9:00 AM EDT Michael Li MD CHEMISTRY ORDERABLES [facility] documented in this encounter Visit Diagnoses Diagnosis Prostate cancer Malignant neoplasm of prostate documented in this encounter Care Teams Haul Driver Relationship Specialty Start Date End Date Michael Franco MD [address] [place] [address] PCP - General 04/03/10 05/15/21 documented as of this encounter
--- OUTSIDE RECORDS SUMMARY | 2024-01-09 01:28 | XMS_ITS | Encounter Summary ---
Author Organization [facility] [place] [address] Care Team Providers Care Ballast Inspector Name Role Phone Michael Franco MD Primary Care Provider [phone] Reason for Visit * Reason Comments Radiation Treatment Encounter Details Date Type Department Care Team (Late st Contact Info) Description 06/26/2011 9:30 AM EST Follow-Up Radiation Oncology at [address] [phone] Michael Olson MD [facility] [place] [address] Prostate cancer (Primary Dx) Discharge [...] Sign Reading Time Taken Comments Blood Pressure 128/72 06/26/2011 9:45 AM EST Pulse 79 06/26/2011 9:45 AM EST Temperature 37.1 ??C (98.7 ??F) 06/26/2011 9:45 AM ES T Respiratory Rate 16 06/26/2011 9:45 AM EST Oxygen Saturation 98% 06/26/2011 9:45 AM EST Inhaled Oxygen Concentration - - Weight 114.8 kg (253 lb) 06/26/2011 9:45 AM EST Height - - Body Mass Index 33.38 10/31/2010 9:00 AM EDT documented in this encounter Progress Notes * Michael Olson MD - 06/26/2011 10:54 AM EST ON TREATMENT VISIT: DATE:06/26/2011 PATIENT STATUS: Prostate;Post LRP 2006: GS=7/10, no ISAAK. St [id number] . TREATMENT PLAN: RADIATION --on hormones Site Technique Dose/ Fraction Fraction Number MeV p e TOTAL DOSE Treatment Dates PTV 1 Bed+LN I IMRT 180 25 p 4500 05/14 to 06/17/11 PTV 2 bed IMRT 180 11 p 1980 06/18 to DOSE to DATE:5760 cGy in 32 FX RADIATION TREATMENT IMAGING: matches original approved images ON TREATMENT EVALUATION: MEDICAL:0 PHYSICAL: 0 AIDS: LABS: TOXICITY:0 REFER TO NURSES UPDATED NOTES RESPONSE TO TREATMENT:GOOD MANAGEMENT PLAN: CONTINUE TREATMENT PLANNED: XX CHANGE TREATMENT HOLD TREATMENT STOP TREATMENT Discussion time with patient (face to face)15 min. documented in this encounter Plan of Treatment Upcoming Encounters Date Type Department Care Team (Late st Contact Info) Description 01/20/2024 9:30 AM EDT Office Visit Hematology/Oncology at [address] [phone] Miguelina Lucia APRN [facility] [place] [address] 02/27/2024 2:15 PM EDT Office Visit Dermatology at [place] [address] [place] [phone] Eliel Vanessa MD [address], MICHAEL [place] [address] documented as of this encounter Visit Diagnoses Diagnosis Prostate cancer- Primary Malignant neoplasm of prostate documented in this encounter Care Teams Ballast Inspector Relationship Specialty Start Date End Date Michael Franco MD [address] [place] [address] PCP - General 04/03/10 05/15/21 documented as of this encounter
--- OUTSIDE RECORDS SUMMARY | 2024-01-09 01:28 | XMS_ITS | Encounter Summary ---
Author Organization [facility] [place] [address] Care Team Providers Care Virtualization Architect Name Role Phone Michael Franco MD Primary Care Provider [phone] Encounter Details Date Type Department Care Team (Latest Contact Info) Description 10/10/2011 11:26 AM EDT - 10/10/2011 11:59 PM EDT [place] [phone] Michael Meneses MD [facility] [place]OLOG[place] [address] Prostate cancer Discharge Disposition: Home Social History [...] HCL/CHONDRO EVANS A (GLUCOSAMINE-CHONDROITIN ORAL) 03/13/2010 aspirin 325 mg tablet Take 325 mg [...] AM EDT Office Visit Hematology/Oncology at [address] [phone] Miguelina Lucia APRN [facility] [place] [address] 02/27/2024 2:15 PM EDT Office Visit Dermatology at [place] [address] [place] [address] Eliel Vanessa MD [address], MICHAEL Mark [place] [address] documented as of this encounter Procedures Procedure Name Priority Date/Time Associated Diagnosis Comments LAB SCAN 10/21/2011 1:15 PM EDT DIFFERENTIAL, AUTOMATED Routine 10/10/2011 1:26 PM EDT CBC (WITH DIFF) Routine 10/10/2011 1:26 PM EDT Prostate cancer PSA (ULTRASENSITIVE), TOTAL AND FREE Routine 10/10/2011 1:26 PM EDT Prostate cancer PSA (ULTRASENSITIVE) Routine 10/10/2011 1:26 PM EDT Prostate cancer COMPREHENSIVE METABOLIC PANEL Routine 10/10/2011 1:26 PM EDT Prostate cancer documented in this encounter Results * SCAN DOC: LAB (10/21/2011 1:15 PM EDT) Narrative 10/21/2011 1:15 PM EDT A scan was deleted from the Results section by Alexis Meneses [[id number]] on 10/21/2011 at ??1:15 PM (File: [id number]) Scanning Provider MEDIA MGR SCAN EXT O RDR/RSLT * DIFFERENTIAL, AUTOMATED (10/10/2011 1:26 PM EDT) Neutrophil % 68.9 34.0 - 71.0 % CERNER MILLENNIUM Neutrophil Absolute 3.68 1.50 - 6.30 x10(3)/mcL CERNER MILLENNIUM Lymph % 19.4 19.0 - 53.0 % CERNER MILLENNIUM Lymphocytes Abs 1.0 1.0 - 3.6 x10(3)/mcL CERNER MILLENNIUM Monocyte % 6.7 4.0 - 13.0 % CERNER MILLENNIUM Monocyte Abs 0.4 0.2 - 1.0 x10(3)/mcL CERNER MILLENNIUM Eos % 3.9 0.0 - 7.0 % CERNER MILLENNIUM Eosinophils [...] 0.05 x10(3)/mcL CERN[facility] MILLENNIUM Blood specimen (specimen) 10/10/2011 1:26 PM EDT 10/10/2011 1:32 PM EDT Michael Meneses MD HEMATOLOGY ORDERABLE S [employer] [facility] [facility] * PSA, total and free (10/10/2011 1:26 PM EDT) PSA Total <0.10 <=4.5 ng/mL [facility] Comment: Test Performed by: [place] [address] Rack Worker: Rosalie Patino, Ph.D. Prostate Specific Antigen, Free <0.1 ng/mL [facility] Comment: Test Performed by: [facility] [place] [address] Rack Worker: Rosalie Patino, Ph.D. Free PSA/PSA SEE COMMENTS ratio [facility] Comment: Ratio was not calculated because free PSA is less than 0.1 ng/mL Ratio not calculated because clinical usefulness is not defined except in range of total PSA 4.0-10.0 ng/mL. The testing method is an electrochemiluminescence assay manufactured by [employer] and performed on the Modular or Kristel system. Values obtained with different assay methods or kits may be different and cannot be used interchangeably. Test results cannot be interpreted as absolute evidence for the presence or absence of malignant disease. Test Performed by: [place] [address] Rack Worker: Rosalie Patino, Ph.D. Blood specimen (specimen) 10/10/2011 1:26 PM EDT 10/10/2011 3:14 PM EDT Narrative Resulting Agency Comment Spec In Lab Michael Meneses MD CHEMISTRY ORDERABLES Performing Organization Address [facility] Co de Phone Number [employer] [facility] [facility] * PSA (10/10/2011 1:26 PM EDT) Prostate Specific Antigen (Ultrasensitiv e) <0.03 0.00 - 4.00 ng/mL [facility] Blood specimen (specimen) 10/10/2011 1:26 PM EDT 10/10/2011 1:32 PM EDT Narrative Resulting Agency Comment Spec In Lab Michael Meneses MD CHEMISTRY ORDERABLES CERNER PRISCILLAENNIUM * (ABNORMAL) Comprehensive metabolic panel (non-fasting) (10/10/2011 1:26 PM EDT) [facility] Signature Glucose 106 60 - 199 mg/dL CERNER MILLENNIUM Comment:Diabetes: >=200 mg/d L plus symptoms Blood Urea Nitrogen 22(H) 10 - 20 mg/dL CERNER MILLENNIUM Creatinine 0.71(L) 0.80 - 1.50 mg/dL [facility] MILLENNIUM Comment: Please note that the pediatric reference intervals supplied above were not validated at [facility]. Results from pediatric patients should be interpreted [...] 5 - 15 mmol/L CERNER MILLENNIUM Calcium 9.9 8.5 - 10.5 mg/dL CERNER MILLENNIUM Protein, Total 7.4 6.4 - 8.3 gm/dL CERNER MILLENNIUM Albumin 4.7 3.2 - 5.2 gm/dL CERNER MILLENNIUM Aspartate Aminotransferase 25 0 - 39 unit/L CERNER MILLENNIUM Alanine Aminotransferase 24 0 - 55 unit/L CERNER MILLENNIUM Alkaline Phosphatase 69 40 - 120 unit/L CERNER MILLENNIUM Bilirubin, [...] J Am Soc Nephrol;6:1963-72. Blood specimen (specimen) 10/10/2011 1:26 PM EDT 10/10/2011 1:32 PM EDT Narrative Resulting Agency Comment Spec In Lab Michael Meneses MD CHEMISTRY ORDERABLES [facility] PRIS[facility]LLAL[facility] * (ABNORMAL) CBC (with Diff) (10/10/2011 1:26 PM EDT) White Blood Cell 5.4 4.0 - 10.0 x10(3)/mc L CERNER MILLENNIUM Red Blood Cell 4.23(L) 4.63 - 6.08 x10(6)/mc L CERNER MILLENNIUM Hemoglobin 14.0 13.7 - 17.5 gm/dL CERNER MILLENNIUM Hematocrit 39.6(L) 40.0 - 51.0 % CERNER MILLENNIUM Mean Cell Volume 93.6(H) 79.0 - 92.0 fL CERNER MILLENNIUM Mean Cell Hemoglobin 33.1(H) 25.6 - 32.2 pg CERNER MILLENNIUM Mean Cell Hemoglobin Concentration 35.4 32.0 - 36.5 gm/dL CERNER MILLENNIUM Platelet 161 145 - 370 x10(3)/mc L CERNER MILLENNIUM RDW Standard Deviation 42.4 35.0 - 46.0 fL CERNER MILLENNIUM RDW coefficient of variation 12.5 10.9 - 14.4 % CERNER PRISCILLAENNIUM Mean Platelet Volume 10.1 9.0 - 12.0 fL [facility] Blood specimen (specimen) 10/10/2011 1:26 PM EDT 10/10/2011 1:32 PM EDT Narrative Resulting Agency Comment Spec In Lab Michael Meneses MD HEMATOLOGY ORDERABLE S [facility] documented in this encounter Visit Diagnoses Diagnosis Prostate cancer Malignant neoplasm of prostate documented in this encounter Care Teams Virtualization Architect Relationship Specialty Start Date End Date Michael Franco MD [address] [place] [address] PCP - General 04/03/10 05/15/21 documented as of this encounter
--- OUTSIDE RECORDS SUMMARY | 2024-01-09 01:28 | XMS_ITS | Encounter Summary ---
Author Organization [facility] Address [address] [place] [address] Care Team Providers Care Account Development Representative Name Role Phone Kristian Machuca MD Primary Care Provider Encounter Details Date Type Department Care Team (Late st Contact Info) Description 06/04/2016 Results Only [facility] [phone] Patrick Butler, DO [address] [place], [place] [phone] Social History Tobacco Use Types Packs/Day Years Used Date Smoking Tobacco: Never Assessed Sex and Gender Information Value Date Recorded Sex Assigned at Not on file Gender Identity Not on file Sexual Orientation Not on file documented as of this encounter Plan of Treatment Not on file documented as of this encounter Procedures Procedure Name Priority Date/Time Associated Diagnosis Comments SURGICAL PATHOLOGY Routine 06/04/2016 8:18 EST documented in this encounter Results * SURGICAL PATHOLOGY (06/04/2016 8:18 EST) Pathology Report: SURGICAL PATHOLOGY REPORT Reports generated via electronic interface contain original data; however they are lacking the format of the original report. Caution should be taken when reading/interpret ing unformatted reports. Name: ? MARIBELL KAUFFMAN ? Accession #: ? [id number] ? : ? 1940 (Age: 75) ??M ? Collect Date: ? 06/04/2016 ? Location: ? [facility] ? Receive Date: ? 06/05/2016 ? Provider: PATRICK BUTLER DO Copy to: KRISTIAN MACHUCA MD ? Final Pathologic Diagnosis: A. COLON, ASCENDING, BIOPSY: - ??Colonic mucosa with no specific pathologic features. - ??Negative for dysplasia. B. COLON, TRANSVERSE, BIOPSY: - ??Colonic mucosa with no specific pathologic features. - ??Negative for dysplasia. C. COLON, DESCENDING, BIOPSY: - ??Colonic mucosa with no specific pathologic features. - ??Negative for dysplasia. D. COLON, SIGMOID, BIOPSY: - ??Colonic mucosa with no specific pathologic features. - ??Negative for dysplasia. E. RECTUM, BIOPSY: - ??Colonic mucosa with mild architectural disarray. - ??Negative for dysplasia. Document reviewed and electronically signed by: BELLA IBANEZ MD Report ??Date: 06/05/2016 17:11 By the signature above, the attending physician certifies that he/she has personally conducted a gross and/or microscopic examination of the described specimens and rendered or confirmed the above diagnosis. Specimen(s) Received: A. ??Ascending colon bx B. ??Transverse colon bx C. ??Descending colon bx D. ??Bxs sigmoid E. ??Rectal bxs Clinical History: Hx of colitis on colonoscopy 2010; asymptomatic; (+) radiation for prostate CA Gross Description: A. ? Received in formalin labelled with proper patient identification (initials N, J) and ascending colon bx are two pink-gore tissues (0.3 x 0.2 x 0.2 cm and 0.4 x 0.2 x 0.2 cm). Entirely submitted in A1. B. ?Received in formalin labelled with proper patient identification (initials N, J) and transverse colon bx are two pink-gore tissues (0.3 x 0.2 x 0.2 cm and 0.4 x 0.2 x 0.2 cm). Entirely submitted in B1. C. ?Received in formalin labelled with proper patient identification (initials N, J) and descending colon bx are two pink-gore tissues (0.3 x 0.2 x 0.2 cm and 0.4 x 0.2 x 0.2 cm). Entirely submitted in C1. D. ?Received in formalin labelled with proper patient identification (initials N, J) and bx sigmoid are two pink-gore tissues (0.2 x 0.2 x 0.2 cm and 0.6 x 0.1 x 0.1 cm). Entirely submitted in D1. E. ? Received in formalin labelled with proper patient identification (initials N, J) and rectal bxs are two pink-gore tissues (0.2 x 0.2 x 0.2 cm and 0.4 x 0.2 x 0.2 cm). Entirely submitted in E1. MANA Mix ([facility]) 06/05/2016 9:04 AM End of Report [facility] 06/04/2016 8:18 EST 06/05/2016 8:18 EST Patrick Butler DO PATHOLOGY ORDER SRIDHAR [facility] [address] [place] [address] documented in this encounter Visit Diagnoses Not on filedocumented in this encounter Care Teams Account Development Representative Relationship Specialty Start Date End Date Kristian Machuca MD PCP - General 01/31/11 documented as of this encounter
--- OUTSIDE RECORDS SUMMARY | 2024-01-09 01:28 | XMS_ITS | Encounter Summary ---
Author Organization [facility] [place] [address] Care Team Providers Care Decorator Mannequin Name Role Phone Michael Franco MD Primary Care Provider [phone] Reason for Visit * Reason Comments Radiation Treatment Encounter Details Date Type Department Care Team (Late st Contact Info) Description 06/19/2011 9:45 AM EST Follow-Up Radiation Oncology at [address] [phone] Michael Olson MD [facility] [place] [address] Prostate cancer (Primary Dx) Discharge [...] Sign Reading Time Taken Comments Blood Pressure 137/75 06/19/2011 9:54 AM EST Pulse 77 06/19/2011 9:54 AM EST Temperature 36.1 ??C (97 ??F) 06/19/2011 9:54 AM EST Respiratory Rate 16 06/19/2011 9:54 AM EST Oxygen Saturation 98% 06/19/2011 9:54 AM EST Inhaled Oxygen Concentration - - Weight 114.8 kg (253 lb) 06/19/2011 9:54 AM EST Height - - Body Mass Index 33.38 10/31/2010 9:00 AM EDT documented in this encounter Progress Notes * Michael Olson MD - 06/19/2011 12:07 PM EST ON TREATMENT VISIT: DATE:06/19/2011 PATIENT STATUS: Prostate;Post LRP 2006: GS=7/10, no ISAAK. St [id number] . TREATMENT PLAN: RADIATION --on hormones Site Technique Dose/ Fraction Fraction Number MeV p e TOTAL DOSE Treatment Dates PTV 1 Bed+LN I IMRT 180 25 p 4500 05/14 to DOSE to DATE:4860 cGy in 27 FX RADIATION TREATMENT IMAGING: matches original approved [...] AM EDT Office Visit Hematology/Oncology at [address] [phone] Miguelina Lucia APRN [facility] [place] [address] 02/27/2024 2:15 PM EDT Office Visit Dermatology at [place] [address] [place] [phone] Eliel Vanessa MD [address], [place] [address] documented as of this encounter Visit Diagnoses Diagnosis Prostate cancer- Primary Malignant neoplasm of prostate documented in this encounter Care Teams Decorator Mannequin Relationship Specialty Start Date End Date Michael Franco MD [address] [place] [address] PCP - General 04/03/10 05/15/21 documented as of this encounter
--- OUTSIDE RECORDS SUMMARY | 2024-01-09 01:28 | XMS_ITS | Encounter Summary ---
Author Organization [facility] [place] [address] Care Team Providers Care Applications Project Manager Name Role Phone Michael Franco MD Primary Care Provider Reason for Visit * Reason Comments Radiation Treatment Encounter Details Date Type Department Care Team (Late st Contact Info) Description 05/29/2011 3:00 PM EST Follow-Up Radiation Oncology at [address] [phone] Michael Olson MD [facility] [place] [address] Prostate cancer (Primary Dx) Discharge [...] Sign Reading Time Taken Comments Blood Pressure 126/83 05/29/2011 3:16 PM EST Pulse 87 05/29/2011 3:16 PM EST Temperature 36.6 ??C (97.9 ??F) 05/29/2011 3:16 PM ES T Respiratory Rate 16 05/29/2011 3:16 PM EST Oxygen Saturation 98% 05/29/2011 3:16 PM EST Inhaled Oxygen Concentration - - Weight 113.9 kg (251 lb) 05/29/2011 3:16 PM EST Height - - Body Mass Index 33.12 10/31/2010 9:00 AM EDT documented in this encounter Progress Notes * Michael Olson MD - 05/29/2011 4:17 PM EST ON TREATMENT VISIT: DATE:05/29/2011 PATIENT STATUS: Prostate;Post LRP 2006: GS=7/10, no ISAAK. St [id number] . TREATMENT PLAN: RADIATION --on hormones Site Technique Dose/ Fraction Fraction Number MeV p e TOTAL DOSE Treatment Dates PTV 1 Bed+LN I IMRT 180 25 p 4500 05/14 to DOSE to DATE:2160 cGy in 12 FX RADIATION TREATMENT IMAGING: matches original approved images ON TREATMENT EVALUATION: MEDICAL:0minor irritation on urination--advised cran/juice PHYSICAL: 0 AIDS: LABS: TOXICITY:0 REFER TO NURSES UPDATED NOTES RESPONSE TO TREATMENT:0 MANAGEMENT PLAN: CONTINUE TREATMENT PLANNED: XX CHANGE TREATMENT HOLD TREATMENT STOP TREATMENT Discussion time with patient (face to face)15 min. documented in this encounter Plan of Treatment Upcoming Encounters Date Type Department Care Team (Late st Contact Info) Description 01/20/2024 9:30 AM EDT Office Visit Hematology/Oncology at [address] [phone] Miguelina Lucia APRN [facility] [place] [address] 02/27/2024 2:15 PM EDT Office Visit Dermatology at [place] [address] [place] [phone] Eliel Vanessa MD [address], [place]HAEL [place] [address] documented as of this encounter Visit Diagnoses Diagnosis Prostate cancer- Primary Malignant neoplasm of prostate documented in this encounter Care Teams Applications Project Manager Relationship Specialty Start Date End Date Michael Franco MD [address] [place] [address] PCP - General 04/03/10 05/15/21 documented as of this encounter
--- OUTSIDE RECORDS SUMMARY | 2024-01-09 01:28 | XMS_ITS | Encounter Summary ---
[place] [address] Care Team Providers Care Manager Analysis Name Role Phone Michael Franco MD Primary Care Provider [phone] Encounter Details Date Type Department Care Team (Late st Contact Info) Description 03/29/2011 2:22 PM EST - 04/10/2011 11:59 PM EST Hospital Encounter [place] [phone] NURSE, RADIATION ONCOLOGY RADIATION ONCOLOGY [facility] Michael Garcia MD [address] [place] [address] [facility] [place] [address] Discharge Disposition: Home Social History Tobacco Use [...] AM EDT Office Visit Hematology/Oncology at [address] [phone] Miguelina Lucia [facility] [place] [address] 02/27/2024 2:15 PM EDT Office Visit Dermatology at [address] [place] [phone] Eliel Vanessa MD [address], [place] [address] documented as of this encounter Visit Diagnoses Not on filedocumented in this encounter Care Teams Manager Analysis Relationship Specialty Start Date End Date Michael Franco MD [address] [facility] 1 [place] [address] PCP - General 04/03/10 05/15/21 documented as of this encounter
--- OUTSIDE RECORDS SUMMARY | 2024-01-09 01:28 | XMS_ITS | Encounter Summary ---
Author Organization [facility] [place] [address] Care Team Providers Care Slag Worker Name Role Phone Michael Franco MD Primary Care Provider [phone] Encounter Details Date Type Department Care Team (Late Contact Info) Description 02/20/2011 Orders Only [place] [address] Hector Perry MD [facility] [place] [address] Social History Tobacco Use Types Packs/Day Years [...] 9:30 AM EDT Office Visit Hematology/Oncology at [address] [phone] Miguelina Lucia APRN [facility] [place] [address] 02/27/2024 2:15 PM EDT Office Visit Dermatology at [place] [address] [place] [address] Eliel Vanessa MD [address], [place] [address] documented as of this encounter Visit Diagnoses Not on filedocumented in this encounter Care Teams Slag Worker Relationship Specialty Start Date End Date Michael Franco MD [address] [facility] 1 [place] [address] PCP - General 04/03/10 05/15/21 documented as of this encounter
--- OUTSIDE RECORDS SUMMARY | 2024-01-09 01:28 | XMS_ITS | Encounter Summary ---
Author Organization [place] [address] Care Team Providers Care Seo Professional Name Role Phone Michael Franco MD Primary Care Provider Encounter Details Date Type Department Care Team (Latest Contact Info) Description 07/18/2011 11:25 AM EST - 07/18/2011 11:59 PM [facility] Hospital [place] [phone] Michael Meneses MD [facility] [place]ATOLOG[place] [address] Prostate cancer Discharge Disposition: Home Social History [...] 03/13/2010 017 documented as of this encounter Procedure Notes * Provider, Scanning - 07/29/2011 3:05 PM EDTAssociated Order(s): SCAN DOC: LAB * Provider, Scanning - 07/29/2011 3:05 PM EDTAssociated Order(s): SCAN DOC: LAB documented in this encounter Plan of Treatment Upcoming Encounters Date Type Department Care Team (Late st Contact Info) Description 01/20/2024 9:30 AM EDT Office Visit Hematology/Oncology at [address] [phone] Miguelina Lucia CARDIAC EXERCISE PHYSIOLOGIST [facility] [place] [address] 02/27/2024 2:15 PM EDT Office Visit Dermatology at [place] [address] [place] [address] Eliel Vanessa MD [address], MICHAEL [place] [address] documented as of this encounter Procedures Procedure Name Priority Date/Time Associated Diagnosis Comments LAB SCAN 07/29/2011 3:05 PM EDT LAB SCAN 07/29/2011 3:05 PM EDT DIFFERENTIAL, AUTOMATED STAT 07/18/2011 11:36 AM EST CBC (WITH DIFF) STAT 07/18/2011 11:36 AM EST Prostate cancer PSA (ULTRASENSITIVE), TOTAL AND FREE Routine 07/18/2011 11:36 AM EST Prostate cancer PSA (ULTRASENSITIVE) Routine 07/18/2011 11:36 AM EST Prostate cancer COMPREHENSIVE METABOLIC PANEL STAT 07/18/2011 11:36 AM EST Prostate cancer documented in this encounter Results * SCAN DOC: LAB (07/29/2011 3:05 PM EDT) Narrative 07/29/2011 3:05 PM EDT Procedure Note Provider, Scanning - 07/29/2011 3:05 PM EDT Scanning Provider MEDIA MGR SCAN EXT O RDR/RSLT * SCAN DOC: LAB (07/29/2011 3:05 PM EDT) Narrative 07/29/2011 3:05 PM EDT Procedure Note Provider, Scanning - 07/29/2011 3:05 PM EDT Scanning Provider MEDIA MGR SCAN EXT O RDR/RSLT * (ABNORMAL) DIFFERENTIAL, AUTOMATED (07/18/2011 11:36 AM EST) Neutrophil % 63.1 34.0 - 71.0 % CERNER MILLENNIUM Neutrophil Absolute 2.86 1.50 - 6.30 x10(3)/mc L CERNER MILLENNIUM Lymph % 16.3(L) 19.0 - 53.0 % CERNER MILLENNIUM Lymphocytes Abs 0.7(L) 1.0 - 3.6 x10(3)/mc L CERNER MILLENNIUM Monocyte % 11.2 4.0 - 13.0 % CERNER MILLENNIUM Monocyte Abs 0.5 0.2 - 1.0 x10(3)/mc L CERNER MILLENNIUM Eos % 7.9(H) 0.0 - 7.0 % CERNER MILLENNIUM Eosinophils Abs 0.4 0.0 - 0.5 x10(3)/mc L CERNER MILLENNIUM Basophil % 1.3 0.0 - 2.0 % CERNER MILLENNIUM Baso Absolute 0.1 0.0 - 0.2 x10(3)/mc L CERNER MILLENNIUM [...] x10(3)/mc L CERNER MILLENNIUM Blood specimen (specimen) 07/18/2011 11:36 AM EST 07/18/2011 11:40 AM EST Michael Meneses MD HEMATOLOGY ORDERABLE S Performing Organization Address [facility] Co de Phone Number CERNER MILLENNIUM * PSA (07/18/2011 11:36 AM EST) Prostate Specific Antigen (Ultrasensitiv e) <0.03 0.00 - 4.00 ng/mL CERNER MILLENNIUM Blood specimen (specimen) 07/18/2011 11:36 AM EST 07/18/2011 11:40 AM EST Narrative Resulting Agency Comment Spec In Lab Michael Meneses MD CHEMISTRY ORDERABLES Performing Organization Address [facility] Co de Phone Number CERNER MILLENNIUM * PSA, total and free (07/18/2011 11:36 AM EST) PSA Total <0.10 <=4.5 ng/mL CERNER MILLENNIUM Comment: Test Performed by: [place] [address] Engine Turner: Rosalie Patino, Ph.D. Prostate Specific Antigen, Free <0.1 ng/mL CERNER MILLENNIUM Comment: Test Performed by: [facility] [place] [address] Engine Turner: Rosalie Patino, Ph.D. Free PSA/PSA SEE COMMENTS ratio CERNER MILLENNIUM Comment: Ratio was not calculated because free PSA is less than 0.1 ng/mL Ratio not calculated because clinical usefulness is not defined except in range of total PSA 4.0-10.0 ng/mL. The testing method is an electrochemiluminescence assay manufactured by [employer] and performed on the Modular or Kristel system. Values obtained with different assay methods or kits may be different and cannot be used interchangeably. Test results cannot be interpreted as absolute evidence for the presence or absence of malignant disease. Test Performed by: [facility] [place] [address] Engine Turner: Rosalie Patino, Ph.D. Blood specimen (specimen) 07/18/2011 11:36 AM EST 07/18/2011 3:04 PM EST Narrative Resulting Agency Comment Spec In Lab Michael Meneses MD CHEMISTRY ORDERABLES [facility] * Comprehensive metabolic panel (non-fasting) (07/18/2011 11:36 AM EST) Glucose 116 60 - 199 mg/dL CERNER MILLENNIUM Comment:Diabetes: >=200 mg/d L plus symptoms Blood Urea Nitrogen 20 10 - 20 mg/dL CERNER MILLENNIUM Creatinine 0.83 0.80 - 1.50 mg/dL CERNER MILLENNIUM Sodium 141 135 - 145 mmol/L CERNER MILLENNIUM Potassium 4.4 3.5 - 5.0 mmol/L CERNER MILLENNIUM Comment: Please note: ??Patients with WBC >100,000 may have falsely elevated Potassium levels. ??For accurate Potassium quantification in these patients send serum separator tube (gold top) for subsequent determinations. ??Contact the Clinical Chemistry Laboratory if there are any questions. Chloride 102 98 - 107 mmol/L CERNER MILLENNIUM Carbon Dioxide 25 22 - 31 mmol/L CERNER MILLENNIUM Anion Gap 14 5 - 15 mmol/L CERNER MILLENNIUM Calcium 10.0 8.5 - 10.5 mg/dL CERNER MILLENNIUM Protein, Total 7.8 6.4 - 8.3 gm/dL CERNER MILLENNIUM Albumin 4.8 3.2 - 5.2 gm/dL CERNER MILLENNIUM Aspartate Aminotransferase 22 0 - 39 unit/L CERNER MILLENNIUM Alanine Aminotransferase 23 0 - 55 unit/L CERNER MILLENNIUM Alkaline Phosphatase 67 40 - 120 unit/L CERNER MILLENNIUM Bilirubin, [...] multiply eGFR by 1.2. The MDRD equation has not been validated for pediatric patients and is only valid for patients with age >= 18 years. At present, NKDEP does NOT recommend using [...] with diabetic kidney disease. References: http://nkdep.nih.gov/resources/NKDEP_Suggestn4Labs_0606_508.pdf http://www.kidney.org/professionals/kls/pdf/faq_gfr.pdf Blood specimen (specimen) 07/18/2011 11:36 AM EST 07/18/2011 11:40 AM EST Narrative Resulting Agency Comment Spec In Lab Michael Meneses MD CHEMISTRY ORDERABLES [facility] LAURA * (ABNORMAL) CBC (with Diff) (07/18/2011 11:36 AM EST) White Blood Cell 4.5 4.0 - 10.0 x10(3)/mc L CERNER MILLENNIUM Red Blood Cell 3.95(L) 4.63 - 6.08 x10(6)/mc L CERNER MILLENNIUM Hemoglobin 13.5(L) 13.7 - 17.5 gm/dL CERNER MILLENNIUM Hematocrit 36.8(L) 40.0 - 51.0 % CERNER MILLENNIUM Mean Cell Volume 93.2(H) 79.0 - 92.0 fL CERNER MILLENNIUM Mean Cell Hemoglobin 34.2(H) 25.6 - 32.2 pg CERNER MILLENNIUM Mean Cell Hemoglobin Concentration 36.7(H) 32.0 - 36.5 gm/dL CERNER MILLENNIUM Platelet 166 145 - 370 x10(3)/mc L CERNER MILLENNIUM RDW Standard Deviation 45.6 35.0 - 46.0 fL CERNER MILLENNIUM RDW coefficient of variation 13.4 10.9 - 14.4 % CERNER MILLENNIUM Mean Platelet Volume 10.1 9.0 - 12.0 fL CERNER MILLENNIUM Blood specimen (specimen) 07/18/2011 11:36 AM EST 07/18/2011 11:40 AM EST Narrative Resulting Agency Comment Spec In Lab Michael Meneses MD HEMATOLOGY ORDERABLE S EFREM SANCHEZ documented in this encounter Visit Diagnoses Diagnosis Prostate cancer Malignant neoplasm of prostate documented in this encounter Care Teams Seo Professional Relationship Specialty Start Date End Date Michael Franco MD [address] [place] [address] PCP - General 04/03/10 05/15/21 documented as of this encounter
--- OUTSIDE RECORDS SUMMARY | 2024-01-09 01:28 | XMS_ITS | Encounter Summary ---
[place] [address] Care Team Providers Care Facility Maintenance Manager Name Role Phone Michael Franco MD Primary Care Provider [phone] Encounter Details Date Type Department Care Team (Late st Contact Info) Description 03/13/2010 [place] [address] Kalpana French [facility] [address] Social History Tobacco Use Types Packs/Day Years Used Date Smoking Tobacco: Never Assessed Sex and Gender Information Value Date Recorded Sex Assigned at Not on file Gender Identity Not on file Sexual Orientation Not on file documented as of this encounter Plan of Treatment Upcoming Encounters Date Type Department Care Team (Late Contact Info) Description 01/20/2024 9:30 AM EDT Office Visit Hematology/Oncology at [address] [phone] Miguelina Lucia [facility] [address] 02/27/2024 2:15 PM EDT Office Visit Dermatology at [address] [place] [address] Eliel Vanessa MD [address], [place] [address] documented as of this encounter Procedures Procedure Name Priority Date/Time Associated Diagnosis Comments PSA (ULTRASENSITIVE) CYRUS 03/13/2010 12:33 PM EDT documented in this encounter Results * PSA (03/13/2010 12:33 PM EDT) Prostate Specific Antigen (Ultrasensitiv e) 0.07 0.00 - 4.00 ng/mL [facility] Blood specimen (specimen) 03/13/2010 12:33 PM EDT 03/13/2010 12:57 PM EDT Kalpana Bullard APRN CHEMISTRY ORDER [facility] [employer] documented in this encounter Visit Diagnoses Not on filedocumented in this encounter Care Teams Facility Maintenance Manager Relationship Specialty Start Date End Date Michael Franco MD [address] [place] [address] PCP - General 04/03/10 05/15/21 documented as of this encounter
--- OUTSIDE RECORDS SUMMARY | 2024-01-09 01:28 | XMS_ITS | Referral Summary ---
Author Organization [facility] Address [address] [place] [address] Care Team Providers Care Rn Transitional Care Name Role Phone Michael Franco MD Primary Care Provider [phone] Social History Tobacco Use Types Packs/Day Years Used Date Smoking Tobacco: Never Assessed Sex and Gender Information Value Date Recorded Sex Assigned at Not on file Gender Identity Not on file Sexual Orientation Not on file Plan of Treatment Not on file Care Teams Rn Transitional Care Relationship Specialty Start Date End Date Michael Franco MD PCP - General 01/31/11
--- OUTSIDE RECORDS SUMMARY | 2024-01-09 01:28 | XMS_ITS | Encounter Summary ---
Author Organization [facility] [place] [address] Care Team Providers Care Back Tacker Name Role Phone Michael Franco MD Primary Care Provider [phone] Reason for Visit * Reason Comments Radiation Treatment Encounter Details Date Type Department Care Team (Late st Contact Info) Description 05/22/2011 5:45 PM EST Follow-Up Radiation Oncology at [address] [phone] Michael Olson MD [facility] [place] [address] Prostate cancer (Primary Dx) Discharge [...] Sign Reading Time Taken Comments Blood Pressure 134/65 05/22/2011 5:00 PM EST Pulse 78 05/22/2011 5:00 PM EST Temperature - - Respiratory Rate 0 05/22/2011 5:00 PM EST Oxygen Saturation 97% 05/22/2011 5:00 PM EST Inhaled Oxygen Concentration - - Weight - - Height - - Body Mass Index - - documented in this encounter Progress Notes * Michael Olson MD - 05/22/2011 6:16 PM EST ON TREATMENT VISIT: DATE:05/22/2011 PATIENT STATUS: Prostate;Post LRP 2006: GS=7/10, no ISAAK. St [id number] . TREATMENT PLAN: RADIATION --on hormones Site Technique Dose/ Fraction Fraction Number MeV p e TOTAL DOSE Treatment Dates PTV 1 Bed+LN I IMRT 180 25 p 4500 05/14 to DOSE to DATE:1260 cGy in 7 FX RADIATION TREATMENT IMAGING: matches original approved images ON TREATMENT EVALUATION: MEDICAL:0 PHYSICAL: 0 AIDS: LABS: TOXICITY:0 REFER TO NURSES UPDATED NOTES RESPONSE TO TREATMENT:0 MANAGEMENT PLAN: CONTINUE TREATMENT PLANNED: XX CHANGE TREATMENT HOLD TREATMENT STOP TREATMENT Discussion time with patient (face to face)5 min. documented in this encounter Plan of Treatment Upcoming Encounters Date Type Department Care Team (Late st Contact Info) Description 01/20/2024 9:30 AM EDT Office Visit Hematology/Oncology at [address] [phone] Miguelina Lucia APRN [facility] [place] [address] 02/27/2024 2:15 PM EDT Office Visit Dermatology at [address] [place] [phone] Eliel Vanessa MD [address], [place] [address] documented as of this encounter Visit Diagnoses Diagnosis Prostate cancer- Primary Malignant neoplasm of prostate documented in this encounter Care Teams Back Tacker Relationship Specialty Start Date End Date Michael Franco MD [address] [place] [address] PCP - General 04/03/10 05/15/21 documented as of this encounter
--- OUTSIDE RECORDS SUMMARY | 2024-01-09 01:28 | XMS_ITS | Encounter Summary ---
[place] [address] Care Team Providers Care Electronics Mechanic Apprentice Name Role Phone Michael Franco MD Primary Care Provider [phone] Reason for Referral * Consultation (Routine) - Closed Specialty Diagnoses / Procedures Referred By Hayley milian Referred To Contact Radiation Oncology Diagnoses Prostate cancer Kalpana French APRN [facility] [place] [address] [facility] [place] [address] Referral ID Status Reason Start Date Expiration Date V isits Requested Visits Authorized [id number] Closed Consult, Test & Treat 10/09/2010 04/07/2011 1 1 Reason for Visit * Reason Comments Follow-up Prostate Cancer Encounter Details Date Type Department Care Team (Late st Contact Info) Description 10/09/2010 1:15 PM EDT [place] [address] Kalpana French APRN [facility] [place] [address] Prostate cancer; ED (erectile dysfunction) Social History Tobacco Use Types Packs/Day Years Used Date Smoking Tobacco: Never Assessed Sex and Gender Information Value Date Recorded Sex Assigned at Not on file Gender Identity Not on file Sexual Orientation Not on file documented as of this encounter Last Filed Vital Signs Vital Sign Reading Time Taken Comments Blood Pressure 134/79 10/09/2010 1:50 PM EDT Pulse 80 10/09/2010 1:50 PM EDT Temperature - - Respiratory Rate - - Oxygen Saturation - - Inhaled Oxygen Concentration - - Weight 108.9 kg (240 lb) 10/09/2010 1:50 PM EDT Height - - Body Mass Index - - documented in this encounter Progress Notes * Kalpana French, [place] - 10/09/2010 2:07 PM EDT Patient Name: Maribell Kauffman Sr. Date of Service: 10/09/10 Primary Care Provider: Keira Martini MD [phone] Reason for Visit: Maribell Kauffman Sr. is a 69 year old gentleman here for follow up. He presents with his . 11/11/06: S/P RNS Laparoscopic Radical Prostatectomy 11/11/06 for pT2c (35% - fat and tumor together but interpreted as not ISAAK) Nx Mx Michelle III+IV CaP Mg -, returns for F/U. Pre PSA 4.8 ng/ml to 0.04 PSA history [place]: [place]/19/[place] [place]: 04/01/07[place] 0.03 [place] [place] PSA[place] 08/31/07: 0.0 [[facility]]* PSA: 12/07/08: 0.1 [[facility]]* LAB RESULTS: [id number] MARIBELL KAUFFMAN SR Prostate Specific Antigen 03/13/2010 0.07 12/20/2009 0.06 08/23/2009 0.04 03/22/2009 0.05 12/21/2008 0.06 04/01/2007 0.03 12/19/2006 0.04 PSA 09/19: 0.09 No incontinence at all now. no pads. IPSS: 03/20: 9 Erectile Function: In the last year he has noted rightsided penile tumescense. Tried pump but doesn't use it. His PCP has encouraged him to use Viagra but he has been reluctant as he has some Aortic Stenosis due to calcification of the valves. He denies a h/o SD, angina or use of nitrates. He took 50 mg without much benefit. Not interested in pursuing further therapies. can still orgasm. He is happy and does not want further therapies. AMPARO Score: 1 (Severe ED) No new back or bone pain, appetite stable, no unexplained wt loss. Scores (as of 03/09/2010) EPIC Urinary: Function - 100 / Bother - 100 EPIC Bowel: Function - 100 / Bother - 100 EPIC Sexual: Function - 23 / Bother - 88 EPIC Hormonal:Function - 85 / Bother - 100 AMPARO Score: 1 (Severe ED) IPSS:10 (Moderate LUTS) IPSS QOL: SF-12 - MCS (Mental): 57 SF-12 - PCS (Physical): 56 Karnofsky: 2 - I am able to carry on normal activities; I have minor signs or symptoms of my illness myD-H Prostate 10/09/2010 GREG-7 0 (No Anxiety) VR12 - Physical Component Summary 59.28 VR12 - MentalComponent Summary 25.69 Sexual Health Inventory for Men 2 (Severe ED) International Prostate Symptom Score 4 ( Mild LUTS) EPIC Urinary Function 100 EPIC Urinary Bother 96.42 EPIC Bowel Function 100 EPIC Bowel Bother 100 EPIC Sexual Function 19.44 EPIC Sexual Bother 81.25 EPIC Hormonal Function 85 EPIC Hormonal Bother 95.83 Post Traumatic Stress Disorder 0 Objective: Very pleasant well appearing M in NAD. O x 3. No cervical, clavicular, or inguinal adenopathy Back- no CVAT, no spine tenderness to palpation Abdomen: obese, soft and non-tender without masses Genital: deferred Rectal- flat prostatic fossa Investigations: Urine: negative Assessment: Slightly rising PSA s/p prostatectomy ED Plan: 1. No further treatments for ED at this time. He and his are content. 2. Have discussed his case with Dr. Li in the past. Given that his PSA fluctuates and he never nadired at <0.03, we discussed that there is likely no concern about his PSA at this time until his PSA reaches 0.20, which would be a biochemically significant recurrence. However, we discussed that his PSA is slowly creeping up and would he like to see RT just to get their perspective and see when they would indicate therapy for him. He would like this information so that he can better make adecision. Will refer him down. 3. I will see him back in 6 months, sooner with concerns. documented in this encounter Plan of Treatment Upcoming Encounters Date Type Department Care Team (Late st Contact Info) Description 01/20/2024 9:30 AM EDT Office Visit Hematology/Oncology at [address] [phone] Mgiuelina Lucia APRN [facility] [place] [address] 02/27/2024 2:15 PM EDT Office Visit Dermatology at [place] [address] [place] [phone] Eliel Vanessa MD [address], [place] [address] Scheduled Referrals Name Type Priority Associated Diagnoses Order Schedule Ambulatory referral to Radiation Oncology Outpatient Referral Routine Prostate cancer Ordered: 10/09/2010 documented as of this encounter Results * PSA (02/04/2011 8:55 AM EDT) Prostate Specific Antigen (Ultrasensitiv e) 0.13 0.00 - 4.00 ng/mL [facility] Blood specimen (specimen) 02/04/2011 8:55 AM EDT 02/04/2011 9:00 AM EDT Michael Li MD CHEMISTRY ORDERABLES [facility] documented in this encounter Visit Diagnoses Diagnosis Prostate cancer Malignant neoplasm of prostate ED (erectile dysfunction) Impotence of organic origin documented in this encounter Care Teams Electronics Mechanic Apprentice Relationship Specialty Start Date End Date Michael Franco MD [address] [place] [address] PCP - General 04/03/10 05/15/21 documented as of this encounter
--- OUTSIDE RECORDS SUMMARY | 2024-01-09 01:28 | XMS_ITS | Encounter Summary ---
Author Organization [facility] [place] [address] Care Team Providers Care Gear Tester Name Role Phone Michael Franco MD Primary Care Provider [phone] Encounter Details Date Type Department Care Team (Late st Contact Info) Description 10/10/2011 Orders Only Hematology Oncology at [address] [phone] Michael Meneses MD [facility] [address] HEMATOLOGY/[place] [address] Prostate cancer (Primary Dx) Social History Tobacco [...] AM EDT Office Visit Hematology/Oncology at [address] [phone] Miguelina Lucia APRN [facility] [place] [address] 02/27/2024 2:15 PM EDT Office Visit Dermatology at [place] [address] [place] [address] Eliel Vanessa MD [address], [place] [address] documented as of this encounter Procedures Procedure Name Priority Date/Time Associated Diagnosis Comments TRANSESOPHAGEAL ECHOCARDIOGRAM (JOSHUA) Routine 12/05/2011 documented in this encounter Results * TRANSESOPHAGEAL ECHOCARDIOGRAM (JOSHUA) (12/05/2011) Anatomical Region Laterality Modality Other 12/05/2011 Narrative 12/05/2011 3:37 PM EDT Procedure: ? Transesophageal Echocardiogram Patient: ? ARUN REYNA ?(Age): () ? Med Rec#: ?[id number] ? Sex: ? [place] Loc: [place] ? Ht / Wt: ??(cm)/(kg) ? Pt. Loc: ?BSA: ? Study Date: ?12/05/2011 ? Pt. Type: Inpatient Tape: ? Referring: Kehinde Munoz Medical Services Assistant: Callie Wesley ([id number]) Interpreting Fellow: Callie Wesley ([id number]) Interpreting Fellow: Alvino Boyd Diagnosis: ??Aortic valve disorders (424.1) CPT Code(s): ??Echo JOSHUA Full (65814), ??Color Doppler (63157), Indication(s):Rhythm: SUMMARY: 1. This JOSHUA study was performed for preoperative evaluation of aortic valve stenosis. 2. PREOPERATIVE STUDY: There is severe aortic stenosis of a tricuspid aortic valve with heavy leaflet calcification and restricted leaflet excursion and associated trace aortic regurgitation. ??The mean systolic gradient across the valve by JOSHUA is measured at 40 mmHg. ??There is normal biventricular function with estimated LVEF of 65%. ??The mitral leaflets are thickened with a sclerotic nodule present near the tip of the anterior leaflet. ??Associated mitral regurgitation is [id number] in severity. ??There is no intracardiac thrombus. 3. POSTOPERATIVE STUDY: There is now a pericardial valve in the aortic position (27 mm Trifecta pericardial valve). ??The prosthesis is well-seated and exhibits normal function without regurgitation or paravalvular leak. ??The mean systolic gradient through the aortic valve by JOSHUA is 4 mmHg. ??Biventricular function remains preserved with visually estimated LVEF 65%. ??There are no other significant changes compared to the preop study. FINDINGS: Left Ventricle ?The left ventricular chamber size is normal. ?There is normal global left ventricular systolic function. ??Ejection fraction is estimated to be 65%. Left Atrium ?There is no evidence of spontaneous echo contrast. ?The left atrial appendage velocity is normal. ?No mass is visualized within the left atrium. ?No thrombus is visualized within the left atrium. ?No atrial septal defect is visualized.by color Doppler. ?Inter-atrial septal thickening is present. ?There is no patent foramen ovale visualized.by color Doppler. Right Ventricle ?The right ventricle is normal in size. ?Right ventricular global systolic function is normal. Right Atrium ?No spontaneous echo contrast is present in the right atrium. ?No mass is visualized in the right atrium. ?No thrombus is visualized in the right atrium. Aortic Valve ?The size of the prosthetic aortic valve is 27mm. ?The prosthetic aortic valve was implanted on 12/05/2011. ?A pericardial bio-prosthetic aortic valve is present. ?The prosthetic aortic valve leaflets are normal. ?The bio-prosthetic aortic valve appears well seated with normal function. ?There is no prosthetic aortic valve regurgitation present. Mitral Valve ?Moderate mitral leaflet calcification is visualized. ?There is thickening of the anterior mitral valve leaflet. ?There is mild to moderate (1-2+/4+) mitral regurgitation present.at systemic blood pressure 120 mmHg. Tricuspid Valve ?The tricuspid valve leaflets are morphologically normal. ?There is mild (1+/4+) tricuspid regurgitation present. Aorta ?There is evidence of grade 2 (extensive intimal thickening) atheromatous disease of the ascending aorta. ?There is evidence of grade 2 (extensive intimal thickening) atheromatous disease of the aortic arch. ?There is evidence of grade 3 (atheroma <= 5mm) atheromatous disease of the descending thoracic aorta. Venous ?The flow pattern of the pulmonary veins appear normal. Joshua Procedures ?The JOSHUA probe was passed in the operating room by the anesthesiologist after the patient was sedated with general anesthesia. Misc ?I personally reviewed the images and edited the resident's/fellow's interpretation. ?Transesophageal echo and color Doppler performed pre and post operatively. This report has been electronically signed by: Gene Millard. ? 12/05/2011 15:36:44 Images reviewed and interpretation verified [facility] Cardiac Ultrasound Laboratory Resulting Agency Comment [id number] Procedure Note Gene Millard MD - 12/05/2011 Procedure: Transesophageal Echocardiogram Patient: ARUN NO(Age): () Med Rec#: [id number] Sex: Site Loc: [facility] Ht / Wt: (cm)/(kg) Pt. Loc: BSA: Study Date: 12/05/2011 Pt. Type: Inpatient Tape: Referring: Kehinde Munoz Medical Services Assistant: Callie Wesley ([id number]) Interpreting Fellow: Callie Wesley ([id number]) Interpreting Fellow: Alvino Boyd Diagnosis: Aortic valve disorders (424.1) CPT Code(s): Echo JOSHUA Full (84193), Color Doppler (72320), Indication(s):Rhythm: SUMMARY: 1. This JOSHUA study was performed for preoperative evaluation of aortic valve stenosis. 2. PREOPERATIVE STUDY: There is severe aortic stenosis of a tricuspid aortic valve with heavy leaflet calcification and restricted leaflet excursion and associated trace aortic regurgitation. The mean systolic gradient across the valve by JOSHUA is measured at 40 mmHg. There is normal biventricular function with estimated LVEF of 65%. The mitral leaflets are thickened with a sclerotic nodule present near the tip of the anterior leaflet. Associated mitral regurgitation is [id number] in severity. There is no intracardiac thrombus. 3. POSTOPERATIVE STUDY: There is now a pericardial valve in the aortic position (27 mm Trifecta pericardial valve). The prosthesis is well-seated and exhibits normal function without regurgitation or paravalvular leak. The mean systolic gradient through the aortic valve by JOSHUA is 4 mmHg. Biventricular function remains preserved with visually estimated LVEF 65%. There are no other significant changes compared to the preop study. FINDINGS: Left Ventricle The left ventricular chamber size is normal. There is normal global left ventricular systolic function. Ejection fraction is estimated to be 65%. Left Atrium There is no evidence of spontaneous echo contrast. The left atrial appendage velocity is normal. No mass is visualized within the left atrium. No thrombus is visualized within the left atrium. No atrial septal defect is visualized.by color Doppler. Inter-atrial septal thickening is present. There is no patent foramen ovale visualized.by color Doppler. Right Ventricle The right ventricle is normal in size. Right ventricular global systolic function is normal. Right Atrium No spontaneous echo contrast is present in the right atrium. No mass is visualized in the right atrium. No thrombus is visualized in the right atrium. Aortic Valve The size of the prosthetic aortic valve is 27mm. The prosthetic aortic valve was implanted on 12/05/2011. A pericardial bio-prosthetic aortic valve is present. The prosthetic aortic valve leaflets are normal. The bio-prosthetic aortic valve appears well seated with normal function. There is no prosthetic aortic valve regurgitation present. Mitral Valve Moderate mitral leaflet calcification is visualized. There is thickening of the anterior mitral valve leaflet. There is mild to moderate (1-2+/4+) mitral regurgitation present.at systemic blood pressure 120 mmHg. Tricuspid Valve The tricuspid valve leaflets are morphologically normal. There is mild (1+/4+) tricuspid regurgitation present. Aorta There is evidence of grade 2 (extensive intimal thickening) atheromatous disease of the ascending aorta. There is evidence of grade 2 (extensive intimal thickening) atheromatous disease of the aortic arch. There is evidence of grade 3 (atheroma <= 5mm) atheromatous disease of the descending thoracic aorta. Venous The flow pattern of the pulmonary veins appear normal. Joshua Procedures The JOSHUA probe was passed in the operating room by the anesthesiologist after the patient was sedated with general anesthesia. [facility] I personally reviewed the images and edited the resident's/fellow's interpretation. Transesophageal echo and color Doppler performed pre and post operatively. This report has been electronically signed by: Gene Millard 12/05/2011 15:36:44 Images reviewed and interpretation verified [facility] Cardiac Ultrasound Laboratory Unknown ECHO ORDERABLES * PSA, total and free (10/10/2011 1:26 PM EDT) PSA Total <0.10 <=4.5 ng/mL CERNER MILLENNIUM Comment: Test Performed by: [email or web address] [address] [address] Plumber Maintenance: Rosalie Patino, Ph.D. Prostate Specific Antigen, Free <0.1 ng/mL CERNER MILLENNIUM Comment: Test Performed by: [facility] [address] [address] Plumber Maintenance: Rosalie Patino, Ph.D. Free PSA/PSA SEE COMMENTS [...] absence of malignant disease. Test Performed by: [place] [address] Plumber Maintenance: Rosalie Patino, Ph.D. Blood specimen (specimen) 10/10/2011 1:26 PM EDT 10/10/2011 3:14 PM EDT Narrative Resulting Agency Comment Spec In Lab Michael Meneses MD CHEMISTRY ORDERABLES Performing Organization Address [facility] Co de Phone Number CERNER MILLENNIUM * PSA (10/10/2011 1:26 PM EDT) Prostate Specific Antigen (Ultrasensitiv e) <0.03 0.00 - 4.00 ng/mL CERNER MILLENNIUM Blood specimen (specimen) 10/10/2011 1:26 PM EDT 10/10/2011 1:32 PM EDT Narrative Resulting Agency Comment Spec In Lab Michael Meneses MD CHEMISTRY ORDERABLES Performing Organization Address [facility] Co de Phone Number CERNER MILLENNIUM * (ABNORMAL) Comprehensive metabolic panel (non-fasting) (10/10/2011 1:26 PM EDT) Glucose 106 60 - 199 mg/dL CERNER MILLENNIUM Comment:Diabetes: >=200 mg/d L plus symptoms Blood Urea Nitrogen 22(H) 10 - 20 mg/dL CERNER MILLENNIUM Creatinine 0.71(L) 0.80 - 1.50 mg/dL CERNER MILLENNIUM Comment: Please note that the pediatric reference intervals supplied above were not validated at [facility]. Results from pediatric patients should be interpreted [...] Lab Michael Meneses MD CHEMISTRY ORDERABLES CERNER MILLENNIUM * (ABNORMAL) CBC (with Diff) (10/10/2011 1:26 [...] of variation 12.5 10.9 - 14.4 % EFREM WELLSENNIUM Mean Platelet Volume 10.1 9.0 - 12.0 fL JUAN MMAGGY WELLSKELSEYIUM Blood specimen (specimen) 10/10/2011 1:26 PM EDT 10/10/2011 1:32 PM EDT Narrative Resulting Agency Comment Spec In Lab Michael Meneses MD HEMATOLOGY ORDERABLE S EFREM SANCHEZ documented in this encounter Visit Diagnoses Diagnosis Prostate cancer- Primary Malignant neoplasm of prostate documented in this encounter Care Teams Gear Tester Relationship Specialty Start Date End Date Michael Franco MD [address] [place] [address] PCP - General 04/03/10 05/15/21 documented as of this encounter
--- OUTSIDE RECORDS SUMMARY | 2024-01-09 01:28 | XMS_ITS | Encounter Summary ---
Author Organization [facility] [place] [address] Care Team Providers Care Foot Miter Operator Name Role Phone Michael Franco MD Primary Care Provider [phone] Encounter Details Date Type Department Care Team (Late st Contact Info) Description 10/04/2010 Abstract [place] [address] Toña Enriquez RN Social History Tobacco Use Types Packs/Day [...] AM EDT Office Visit Hematology/Oncology at [address] [phone] Miguelina Lucia APRN [facility] [place] [address] 02/27/2024 2:15 PM EDT Office Visit Dermatology at [address] [place] [address] Eliel Vanessa MD [address], [place] [address] documented as of this encounter Visit Diagnoses Not on filedocumented in this encounter Care Teams Foot Miter Operator Relationship Specialty Start Date End Date Michael Franco MD [address] [place] [address] PCP - General 04/03/10 05/15/21 documented as of this encounter
--- OUTSIDE RECORDS SUMMARY | 2024-01-09 01:28 | XMS_ITS | Encounter Summary ---
[place] [address] Care Team Providers Care Machine Stuffer Name Role Phone Michael Franco MD Primary Care Provider Encounter Details Date Type Department Care Team (Latest Contact Info) Description 03/29/2011 2:22 PM EST - 03/29/2011 11:59 PM EST Hospital Encounter [place] [phone] Hector Perry MD [facility] [address] [place] [address] Prostate cancer Social History Tobacco Use Types [...] Sign Reading Time Taken Comments Blood Pressure 131/78 03/29/2011 2:51 PM EST Pulse 70 03/29/2011 2:51 PM EST Temperature 36.6 ??C (97.9 ??F) 03/29/2011 2:51 PM ES T Respiratory Rate - - Oxygen Saturation 97% 03/29/2011 2:51 PM EST Inhaled Oxygen Concentration - - Weight - - Height - - Body Mass Index - - documented in this encounter Medications at Time [...] as of this encounter Progress Notes * Hector Perry MD - 03/31/2011 9:39 PM EST Ayad Kauffman Sr. is a 70 y.o. gentleman with rising PSA s/p prostatecomy in 2006, Michelle 7/10 tumor at that time without ISAAK, Stage [id number]. PSA has been rising gradually up to 0.13. He presents today for CT-based simulation. After installation of contrast material into the urethra, the patient underwent CT-based simulationscanning with images acquired covering lower lumbar spine and pelvis -- including prostate region, bladder, rectum, and draining lymphatics -- and extending below the tuberosities. Standard immobilization was accomplished using knee sponge and band-fixation of the feet. Following acquisition of the images, these were reviewed, determined adequate for radiation treatment planning, and pushed to dosimetry for off-line treatment planning. The patient was discharged in good condition. * Bettie Mancuso RN - 03/29/2011 3:09 PM EST Radiation Oncology Simulation Note Mr Sanchez is here for radiation planning , undergoing a simulation to the prostate bed for cancer treatment . Usual radiation oncology routines and purpose of on treatment visits were explained. Site to be treated: Prostate bed and lymph nodes Anticipatory Guidance: Skin care. Bladder and bowel issues addressed Literature Given: Radiation booklet Barriers to Treatment/ Compliance issues identified: Knee surgery 04/03/11. Need healing time 4-6 weeks.Tx at [facility]. Patient confirms they can have no difficulties lying flat/plan if needed with pre- medication made: Referrals: documented in this encounter Plan of Treatment Upcoming Encounters Date Type Department Care Team (Late st Contact Info) Description 01/20/2024 9:30 AM EDT Office Visit Hematology/Oncology at [address] [phone] Miguelina Lucia APRN [facility] [place] [address] 02/27/2024 2:15 PM EDT Office Visit Dermatology at [address] [place] [address] Eliel Vanessa MD [address], [place] [address] documented as of this encounter Visit Diagnoses Diagnosis Prostate cancer Malignant neoplasm of prostate documented in this encounter Care Teams Machine Stuffer Relationship Specialty Start Date End Date Michael Franco MD [address] [place] [address] PCP - General 04/03/10 05/15/21 documented as of this encounter
--- OUTSIDE RECORDS SUMMARY | 2024-01-09 01:28 | XMS_ITS | Encounter Summary ---
Author Organization [facility] [place] [address] Care Team Providers Care Instrumentation Controls Engineer Name Role Phone Michael Franco MD Primary Care Provider Encounter Details Date Type Department Care Team (Late Contact Info) Description 02/07/2011 Orders [place] [address] Hector [place] MD [facility] [place] [address] Prostate cancer (Primary Dx) Social History Tobacco [...] 9:30 AM EDT Office Visit Hematology/Oncology at [address] [phone] Miguelina Lucia APRN [facility] [place] [address] 02/27/2024 2:15 PM EDT Office Visit Dermatology at [place] [address] [place] [phone] Eliel Vanessa MD [address], MICHAEL [place] [address] documented as of this encounter Visit Diagnoses Diagnosis Prostate cancer- Primary Malignant neoplasm of prostate documented in this encounter Care Teams Instrumentation Controls Engineer Relationship Specialty Start Date End Date Michael Franco MD [address] [facility] 1 [place] [address] PCP - General 04/03/10 05/15/21 documented as of this encounter
--- OUTSIDE RECORDS SUMMARY | 2024-01-09 01:28 | XMS_ITS | Encounter Summary ---
Author Organization [facility] [place] [address] Care Team Providers Care Staining Machine Operator Name Role Phone Desire Fountain APRN Primary Care Provider [phone] Encounter Details Date Type Department Care Team (Late Contact Info) Description 11/11/2006 [place] [address] Michael Li MD [facility] [place] [address] Social History Tobacco Use Types Packs/Day Years [...] AM EDT Office Visit Hematology/Oncology at [address] [phone] Miguelina Lucia APRN [facility] [place] [address] 02/27/2024 2:15 PM EDT Office Visit Dermatology at [address] [place] [address] Eliel Vanessa MD [address], [place] [address] documented as of this encounter Procedures Procedure Name Priority Date/Time Associated Diagnosis Comments SURGICAL PATHOLOGY REPORT Routine 11/11/2006 1:07 PM EDT documented in this encounter Results * Surgical Pathology Report (11/11/2006 1:07 PM EDT) Surgical Pathology Report ? Location: [facility]; [facility]; A The signing pathologist has (i) examined the relevant preparation(s) for the specimen(s) and (ii) rendered or confirmed the diagnosis(es). . ?Pathology Surgical Pathology Final Report Clinical Information Specimen Submitted: A - Prostate/stitch tomlinson right apex, pelvis Clinical Diagnosis: Prostate Ca. Gross Description Labeled/Fixative: ?Prostate, fresh. Qty/Size/Weight: ? Single, 5.3 x 4.3 x 4.0 cm, 50 g. Tissue Description: ?Prostatectomy specimen with attached bilateral ? adnexa. ??The specimen is received oriented with a suture designating right apex. ??External surface is hernadez-pink and smooth, becoming ragged around the base. ?? Length of adnexa: ?Rt Seminal Vesicle: ??3.5 cm. ?Lt Seminal Vesicle: ??2.7 cm. ?Rt Vas Deferens: ? 3.6 cm. ?Lt Vas Deferens: ? 3.2 cm. ?? Outer Surface: ?Hernadez-pink and spongy prostatic parenchyma. ?? Cut Surface: ?A 1.2 x 1.2 x 1.1-cm, ill-defined, white, pallid ? area is identified within the left half of the specimen spanning both the anterior and posterior quadrants within slices III-. ??There is also a 0.6 x 0.3 x 0.3-cm, ill-defined, yellow focus involving the left posterior quadrant of slices VIII-IX. Sections/Processi ng: ? The right half of the specimen is inked with ? April ink and the left half with yellow ink. ??The prostate is serially sectioned from apex to base at 3-mm intervals. ??Each slice is quadrisected and technical account representative sections of the transverse slices are submitted in the ??following sequence: ??Right anterior quadrant, right posterior quadrant, left anterior quadrant, and left posterior quadrant. ??Each seminal vesicle is serially sectioned longitudinally, and both sides are entirely submitted. ??The bilateral vas deferens margins are submitted with the seminal vesicle. ??(1-2) bladder neck margin; ??(3) apical anterior margin; (4) apical posterior margin. ??Slices are entirely submitted in the sequence of quadrants as noted above, as follows: ??(5-8) slice II; (9-12) slice III: (13-16) slice IV; (17-20) slice V; (21-24) slice ; (25-28) slice VII; (29-32) slice VIII; (33-36) slice IX; (37-40) slice X; (41-44) slice XI; (45-46) slice XI; (47) right and left vas deferens margins en face; (48-51) right seminal vesicle; (52-56) left seminal vesicle. ??(R56) ??aje/SNS Microscopic Description Slides reviewed, microscopic description not recorded. Diagnosis Specimen type: ?Prostatectomy Histologic type: ?Adenocarcinoma Colrain grade: ?3+4 Colrain score: ?7 Location of tumor: ?Bilateral lobes % prostate involved by tumor: 35 Extracapsular extension (ISAAK):See comment Seminal vesicle invasion: ? Absent Margins: ?Margins uninvolved by invasive carcinoma . Diagnosis Perineural invasion: ?Present Lymphovascular invasion: ?Absent Additional findings: ?HGPIN TNM STAGING ( AJCC, 6th ed., 2003): Extent of invasion: ? pT2c: (organ confined, bilateral disease) Regional lymph nodes: ? pNX (cannot be assessed) Distant metastasis: ? pMX (cannot be assessed) CR-0 11/14/06 PATROL JUDGE 11/14/06 Verified by: ? Sharron Brown ?Pathologist ?(Electronic Signature) The attending pathologist whose signature appears on this report has reviewed all diagnostic slides and has edited the gross and/or microscopic portion of the report in rendering the final pathologic diagnosis. Comment _ In sections A7, 15, 19 (all contiguous sections from the left lobe anteriorly) there appears to be some fat invaginating into the prostatic parentchyma. Though tumor is seen around adipose tissue in these sections, there is scant stroma around these foci and an interpretation of extracapsular extension is not warranted. These sections were reviewed with Dr Menchaca who concurs. [facility] 11/11/2006 1:07 PM EDT Michael Li MD PATHOLOGY/CYTOLOGY O RDERABLES [facility] documented in this encounter Visit Diagnoses Not on filedocumented in this encounter Care Teams Staining Machine Operator Relationship Specialty Start Date End Date Александр, Desire Richard APRN PCP - General Internal Medicine 06/18/22 10/07/23 documented as of this encounter
--- OUTSIDE RECORDS SUMMARY | 2024-01-09 01:28 | XMS_ITS | Encounter Summary ---
Author Organization [facility] [place] [address] Care Team Providers Care Hatch Supervisor Name Role Phone Michael Franco MD Primary Care Provider [phone] Reason for Visit * Reason Comments Radiation Treatment Encounter Details Date Type Department Care Team (Late st Contact Info) Description 07/03/2011 9:15 AM EST Office Visit Radiation Oncology at [address] [phone] Michael Olson MD [facility] [place] [address] Savita Sims RN Prostate cancer (Primary Dx) Discharge Disposition: Home [...] Sign Reading Time Taken Comments Blood Pressure 129/72 07/03/2011 10:00 AM EST Pulse 81 07/03/2011 10:00 AM EST Temperature 37.6 ??C (99.6 ??F) 07/03/2011 10:[address] Respiratory Rate - - Oxygen Saturation 97% 07/03/2011 10:00 AM EST Inhaled Oxygen Concentration - - Weight 113.9 kg (251 lb) 07/03/2011 10:00 AM EST Height - - Body Mass Index 33.12 07/03/2011 9:44 AM EST documented in this encounter Progress Notes * Michael Olson MD - 07/03/2011 1:21 PM EST DATE:07/03/2011 COMPLETION OF RADIATION TREATMENT NOTE: PATIENT STATUS: Prostate;Post LRP 2006: GS=7/10, no ISAAK. St [id number] . TREATMENT SUMMERY + hormones Site Technique Dose/ Fraction Fraction Number MeV p e TOTAL DOSE Treatment Dates PTV 1 Bed+LN I IMRT 180 25 p 4500 05/14 to 06/17/11 PTV 2 bed IMRT 180 11 p 1980 06/18 to 07/03/11 FINAL DOSE: 6480 cGy in 36 FX RADIATION TREATMENT IMAGING: matches original approved images END OF TREATMENT EVALUATION MEDICAL:0 PHYSICAL: 0 TOXICITY:0 RESPONSE TO TREATMENT:GOOD MANAGEMENT PLAN: REFER TO MED ONC NOTE TO ATTENDINGS RTC 40 C PSA Discussion time with patient (face to face)15 min. documented in this encounter Plan of Treatment Upcoming Encounters Date Type Department Care Team (Late st Contact Info) Description 01/20/2024 9:30 AM EDT Office Visit Hematology/Oncology at [address] [phone] Miguelina Lucia APRN [facility] [place] [address] 02/27/2024 2:15 PM EDT Office Visit Dermatology at [place] [address] [place] [phone] Eliel Vanessa MD [address], [place] [address] documented as of this encounter Visit Diagnoses Diagnosis Prostate cancer- Primary Malignant neoplasm of prostate documented in this encounter Care Teams Hatch Supervisor Relationship Specialty Start Date End Date Michael Franco MD [address]EL [address] [place] [address] PCP - General 04/03/10 05/15/21 documented as of this encounter
--- OUTSIDE RECORDS SUMMARY | 2024-01-09 01:28 | XMS_ITS | Encounter Summary ---
Author Organization [facility] [place] [address] Care Team Providers Care Sales Support Representative Name Role Phone Michael Franco MD Primary Care Provider [phone] Reason for Visit * Reason Comments Injections Lupron 30mg IM Q 4mo [facility] Encounter Details Date Type Department Care Team (Late st Contact Info) Description 07/03/2011 11:00 AM EST Follow-Up Hematology Oncology at [address] [phone] Prostate cancer (Primary Dx) Social History Tobacco Use Types Packs/Day Years Used Date Smoking Tobacco: Former Alcohol Use Standard Drinks/Week Comments Yes 7 (1 standard drink = 0.6 oz pur e alcohol) Sex and Gender Information Value Date Recorded Sex Assigned at Not on file Gender Identity Not on file Sexual Orientation Not on file documented as of this encounter Progress Notes * Savita Sims RN - 07/03/2011 12:03 PM EST Infusion Note Diagnosis:Prostate Cancer Treatment: Lupron Injection Lupron 30 mg injected in right buttocks Patient instructed on side effects of Lupron. Patient states understanding of teaching, Patient aware to call clinic with any questions or concerns. Plan: Return to clinic as scheduled. documented in this encounter Procedure Notes * Provider, Scanning - 07/12/2011 10:37 AM ESTAssociated Order(s): SCAN DOC: LAB * Provider, Scanning - 07/03/2011 4:01 PM ESTAssociated Order(s): SCAN DOC: CHEMOTHERAPY documented in this encounter Plan of Treatment Upcoming Encounters Date Type Department Care Team (Late st Contact Info) Description 01/20/2024 9:30 AM EDT Office Visit Hematology/Oncology at [address] [phone] Miguelina Lucia APRN [facility] [place] [address] 02/27/2024 2:15 PM EDT Office Visit Dermatology at [place] [address] [place] [address] Eliel Vanessa MD [address], MICHAEL [place] [address] documented as of this encounter Procedures Procedure Name Priority Date/Time Associated Diagnosis Comments LAB SCAN 07/12/2011 10:37 AM EST CHEMOTHERAPY SCAN 07/03/2011 4:0 1 PM EST documented in this encounter Results * SCAN DOC: LAB (07/12/2011 10:37 AM EST) Narrative 07/12/2011 10:37 AM EST Procedure Note Provider, Scanning - 07/12/2011 10:37 AM EST Scanning Provider MEDIA MGR SCAN EXT O RDR/RSLT * SCAN DOC: CHEMOTHERAPY (07/03/2011 4:01 PM EST) Narrative 07/03/2011 4:01 PM EST Procedure Note Provider, Scanning - 07/03/2011 4:01 PM EST Scanning Provider MEDIA MGR SCAN EXT O RDR/RSLT documented in this encounter Visit Diagnoses Diagnosis Prostate cancer- Primary Malignant neoplasm of prostate documented in this encounter Care Teams Sales Support Representative Relationship Specialty Start Date End Date Michael Franco MD [address] [place] [address] PCP - General 04/03/10 05/15/21 documented as of this encounter
--- OUTSIDE RECORDS SUMMARY | 2024-01-09 01:28 | XMS_ITS | Encounter Summary ---
Author Organization [facility] [place] [address] Care Team Providers Care Director Of Consumer Affairs Name Role Phone Unavailable Primary Care Provider Unavailabl e Encounter Details Date Type Department Care Team (Late Contact Info) Description 03/13/2010 1:30 PM EDT [place] [address] Kalpana French [facility] [place] [address] Social History Tobacco Use Types Packs/Day Years [...] AM EDT Office Visit Hematology/Oncology at [address] [phone] Miguelina Lucia [facility] [place] [address] 02/27/2024 2:15 PM EDT Office Visit Dermatology at [address] [place] [phone] Eliel Vanessa MD [address], [place] [address] documented as of this encounter Visit Diagnoses Not on filedocumented in this encounter
--- OUTSIDE RECORDS SUMMARY | 2024-01-09 01:28 | XMS_ITS | Encounter Summary ---
Author Organization [facility] [place] [address] Care Team Providers Care Business Division Chair Name Role Phone Kristian Franco MD Primary Care Provider [phone] Reason for Visit * Reason Comments Prostate Cancer Encounter Details Date Type Department Care Team (Late st Contact Info) Description 07/03/2011 10:00 AM EST Office Visit Hematology Oncology at [address] [phone] Kristian Meneses MD [facility] [place]ATOLOG[place] [address] Aortic stenosis (Primary Dx); Prostate cancer Social History Tobacco Use Types [...] Sign Reading Time Taken Comments Blood Pressure - - Pulse - - Temperature - - Respiratory Rate - - Oxygen Saturation - - Inhaled Oxygen Concentration - - Weight - - Height 185.4 cm (6' 0.99) 07/03/2011 9:44 AM ES T Body Mass Index - - documented in this encounter Progress Notes * Kristian Meneses MD - 07/03/2011 11:08 AM EST Problem list #1 prostate cancer Diagnosed in 2006 with a PSA of 4.8. He underwent laparoscopic prostatectomy. He was found of Lemont's 7 with perineural invasion but no extracapsular [...] have clean margins with no extracapsular extension. Michelle score was 7 with 35% of prostate gland involved. He was then followed expectantly with PSAs until 2010 were began to rise up to 0.06 and by January there up to 0.13 and radiat ion Lupron were initiated. He completed radiation July 03, 2011. His first Lupron injection was February 22, 2011. He is here today for followup. Provider: KRISTIAN LOVELACE Pt. Name: MARIBELL KAUFFMAN SR ---Pathologic Diagnosis--- Specimen type: Prostatectomy Histologic type: Adenocarcinoma Lemont grade: 3+4 Michelle score: 7 Location of tumor: Bilateral lobes [...] 0.04 12/19 0.06 03/21 0.07 09/19 0.09 Review of systems Essentially negative. Specifically no weight loss, nausea vomiting, shortness of breath, bone pain,chest pain, fevers, diarrhea, abdominal pain, change in bowel or bladder habits, edema. The only symptoms is having is some weight gain and some mild hot flashes and Lupron but he doesn'tthink it is bad. He thinks he may be a little bit weaker since he started Lupron and initially had a little bit of memory problems but that seems to have resolved. 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 [place] mood [place] in [place]. He continues to work. He [...] Avastin #2 lisinopril #3 Lupron Physical exam Lungs clear throughout no wheezes rales or rhonchi Regular rate and rhythm no edema no cyanosis no JVD. Positive for grade 3 murmur at this left sternal border radiating across to the right sternal border. 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 There is no evidence of systemic metastatic disease. Note that he did not have a lymph node dissection with the original prostatectomy. He completed radiation therapy. July 03, 2011. He began Lupron February 22, 2011. He is here today to continue Lupron therapy and monitoring of his prostate cancer. Note the significant positive family history above. [...] will consider making that appointment. Plan #1 Lupron 30 mg today and every 4 months. #2 check CBC, CMP, and PSA now, and every 4 months. #3 consider a genetic counseling as noted above * Lucretia Hammer RN - 07/03/2011 10:16 AM EST MEDICAL ONCOLOGY INITIAL NURSING ASSESSMENT ADVANCE DIRECTIVES: In ED [ X ] Has documents [ ] Will bring in [ ] IF NO: Advance Directive pamphlet provided : Referral to Care Management : PRESENTING SYSTEMS and PATHOLOGY: REVIEW OF SYSTEMS: Prior Radiotherapy: no[ ] Yes[ X ]Site Date_ended 07/02/11_ Facility_[facility]- Prior Chemotherapy: no[ X ] Yes[ ] Drug: Oncologist- LastTreatment: NO: YES: Claustrophobia or requires sedation for MRIs X Allergy to CT or MRI contrast agent or iodine or shellfish X Diabetic and on metformin X Metal in body, implanted device, worked with metal, body piercings,braces X Dentures or hearing device X Pacemaker X Difficulty breathing while lying flat X Kidney problems/creatinine X Balance difficulty: [ X ]no [ ]yes At risk for fall: [ X ] no [ ] yes If yes, actions implemented to prevent fall. Patient/family instructed to avoid independent ambulation. Use wheelchair and ask for assistance of staff while in the clinic. ADL [ X ] no limits [ ] needs dressing assistance [ ] needs meal assistance Assistive device:[ X ]none [ ]cane [ ]walker [ ]wheelchair [ ]other: explain SOCIAL ASSESSMENT: See [facility] social assessment information entered. Support Systems: Lives with - 2 sons, live close Barriers to treatment: Referrals/Interventions: LEARNING STYLE: Visual and verbal, wants written material and verbal discussion. TEACHING: __ NCI ???Chemotherapy and You?? and folder given __ Specific chemotherapy literature provided and reviewed with patient documented in this encounter Procedure Notes * Provider, Scanning - 07/12/2011 10:22 AM ESTAssociated Order(s): SCAN DOC: LAB documented in this encounter Plan of Treatment Upcoming Encounters Date Type Department Care Team (Late st Contact Info) Description 01/20/2024 9:30 AM EDT Office Visit Hematology/Oncology at [address] [phone] Miguelina Lucia APRN [facility] [place] [address] 02/27/2024 2:15 PM EDT Office Visit Dermatology at [place] [address] [place] [phone] Eliel Vanessa MD [address], [place] [address] documented as of this encounter Procedures Procedure Name Priority Date/Time Associated Diagnosis Comments LAB SCAN 07/12/2011 10:22 AM EST documented in this encounter Results * PSA, total and free (07/18/2011 11:36 AM EST) PSA Total <0.10 <=4.5 ng/mL CERNER MILLENNIUM Comment: Test Performed by: [facility] [address] [address] Sample Puller: Rosalie Patino, Ph.D. Prostate Specific Antigen, Free <0.1 ng/mL CERNER MILLENNIUM Comment: Test Performed by: [place] [address] Sample Puller: Rosalie Patino, Ph.D. Free PSA/PSA SEE COMMENTS [...] absence of malignant disease. Test Performed by: [place] [address] Sample Puller: Rosalie Patino, Ph.D. Blood specimen (specimen) 07/18/2011 11:36 AM EST 07/18/2011 3:04 PM EST Narrative Resulting Agency Comment Spec In Lab Kristian Meneses MD CHEMISTRY ORDERABLES CERNER MILLENNIUM * Comprehensive metabolic panel (non-fasting) (07/18/2011 11:36 [...] Narrative Resulting Agency Comment Spec In Lab Kristian Meneses MD CHEMISTRY ORDERABLES EFREM FATIMAIUM * (ABNORMAL) CBC (with Diff) (07/18/2011 11:36 [...] Narrative Resulting Agency Comment Spec In Lab Kristian Meneses MD HEMATOLOGY ORDERABLE S EFREM SANCHEZ * SCAN DOC: LAB (07/12/2011 10:22 AM EST) Narrative 07/12/2011 10:22 AM EST Procedure Note Provider, Scanning - 07/12/2011 10:22 AM EST Scanning Provider MEDIA MGR SCAN EXT O RDR/RSLT documented in this encounter Visit Diagnoses Diagnosis Aortic stenosis- Primary Aortic valve disorders Prostate cancer Malignant neoplasm of prostate documented in this encounter Care Teams Business Division Chair Relationship Specialty Start Date End Date Kristian Franco MD [address] [place] [address] PCP - General 04/03/10 05/15/21 documented as of this encounter
--- OUTSIDE RECORDS SUMMARY | 2024-01-09 01:28 | XMS_ITS | Encounter Summary ---
Author Organization [facility] [place] [address] Care Team Providers Care Wire Coiler Name Role Phone Michael Franco MD Primary Care Provider [phone] Encounter Details Date Type Department Care Team (Late st Contact Info) Description 02/21/2011 11:30 AM EDT Follow-Up Hematology Oncology at [address] [phone] CLINIC, DR REYNA HEM/ONC Discharge Disposition: Home Social History Tobacco Use Types Packs/Day Years Used Date Smoking Tobacco: Former Alcohol Use Standard Drinks/Week Comments Yes 7 (1 standard drink = 0.6 oz pur e alcohol) Sex and Gender Information Value Date Recorded Sex Assigned at Not on file Gender Identity Not on file Sexual Orientation Not on file documented as of this encounter Procedure Notes * Provider, Scanning - 02/21/2011 2:30 PM EDTAssociated Order(s): SCAN DOC: CHEMOTHERAPY documented in this encounter Plan of Treatment Upcoming Encounters Date Type Department Care Team (Late Contact Info) Description 01/20/2024 9:30 AM EDT Office Visit Hematology/Oncology at [address] [phone] Miguelina Lucia, [facility] [place] [address] 02/27/2024 2:15 PM EDT Office Visit Dermatology at [place] [address] [place] [address] Eliel Vanessa MD [address], [place] [address] documented as of this encounter Procedures Procedure Name Priority Date/Time Associated Diagnosis Comments CHEMOTHERAPY SCAN 02/21/2011 2:3 0 PM EDT documented in this encounter Results * SCAN DOC: CHEMOTHERAPY (02/21/2011 2:30 PM EDT) Narrative 02/21/2011 2:30 PM EDT Procedure Note Provider, Scanning - 02/21/2011 2:30 PM EDT Scanning Provider MEDIA MGR SCAN EXT O RDR/RSLT documented in this encounter Visit Diagnoses Not on filedocumented in this encounter Administered Medications Inactive Administered Medications - up to 3 most recent administrations Medication Order MAR Action Action Date Dose Rate Site leuprolide (LUPRON) injection 30 mg 30 mg, Intramuscular, ONCE, 1 dose, On Deborah 02/21/11 at 1200, Routine Given 02/21/2011 11:40 AM EDT 30 mg documented in this encounter Care Teams Wire Coiler Relationship Specialty Start Date End Date Michael Franco MD [address] [facility] 1 [place] [address] PCP - General 04/03/10 05/15/21 documented as of this encounter
--- OUTSIDE RECORDS SUMMARY | 2024-01-09 01:28 | XMS_ITS | Encounter Summary ---
Author Organization Formerly [facility] [place] [address] Care Team Providers Care Lead Network Engineer Name Role Phone Michael Franco MD Primary Care Provider [phone] Reason for Visit * Reason Comments Radiation Treatment Encounter Details Date Type Department Care Team (Late st Contact Info) Description 06/12/2011 2:00 PM EST Follow-Up Radiation Oncology at [address] [phone] Michael Olson MD [facility] [place] [address] Prostate cancer (Primary Dx) Discharge [...] Sign Reading Time Taken Comments Blood Pressure 119/72 06/12/2011 2:23 PM EST Pulse 78 06/12/2011 2:23 PM EST Temperature 37.5 ??C (99.5 ??F) 06/12/2011 2:23 PM ES T Respiratory Rate 16 06/12/2011 2:23 PM EST Oxygen Saturation 97% 06/12/2011 2:23 PM EST Inhaled Oxygen Concentration - - Weight 114.3 kg (252 lb) 06/12/2011 2:23 PM EST Height - - Body Mass Index 33.25 10/31/2010 9:00 AM EDT documented in this encounter Progress Notes * Michael Olson MD - 06/12/2011 5:17 PM EST ON TREATMENT VISIT: DATE:06/12/2011 PATIENT STATUS: Prostate;Post LRP 2006: GS=7/10, no ISAAK. St [id number] . TREATMENT PLAN: RADIATION --on hormones Site Technique Dose/ Fraction Fraction Number MeV p e TOTAL DOSE Treatment Dates PTV 1 Bed+LN I IMRT 180 25 p 4500 05/14 to DOSE to DATE:3960 cGy in 22 FX RADIATION TREATMENT IMAGING: matches original approved images ON TREATMENT EVALUATION: MEDICAL:0 PHYSICAL: 0 AIDS: LABS : TOXICITY:0 REFER TO NURSES UPDATED NOTES RESPONSE TO TREATMENT:good MANAGEMENT PLAN: CONTINUE TREATMENT PLANNED: XX CHANGE TREATMENT HOLD TREATMENT STOP TREATMENT Discussion time with patient (face to face)15 min. documented in this encounter Plan of Treatment Upcoming Encounters Date Type Department Care Team (Late st Contact Info) Description 01/20/2024 9:30 AM EDT Office Visit Hematology/Oncology at [address] [phone] Miguelina Lucia APRN [facility] [place] [address] 02/27/2024 2:15 PM EDT Office Visit Dermatology at [place] [address] [place] [address] Eliel Vanessa MD [address], [place] [address] documented as of this encounter Visit Diagnoses Diagnosis Prostate cancer- Primary Malignant neoplasm of prostate documented in this encounter Care Teams Lead Network Engineer Relationship Specialty Start Date End Date Michael Franco MD [address] [place] [address] PCP - General 04/03/10 05/15/21 documented as of this encounter
--- OUTSIDE RECORDS SUMMARY | 2024-01-09 01:28 | XMS_ITS | Clinical Summary ---
Author Organization [facility] Address [address] [place] [address] Care Team Providers Care Nutrition Assistant Name Role Phone Michael Franco MD Primary Care Provider [phone] Social History Tobacco Use Types Packs/Day Years Used Date Smoking Tobacco: Never Assessed Sex and Gender Information Value Date Recorded Sex Assigned at Not on file Gender Identity Not on file Sexual Orientation Not on file Plan of Treatment Health Maintenance Due Date Last Done Comments RSV Immunization ( o r 60+ Years) (1 - 1-dose 60+ series) 2001 Fall Risk Screening 2006 COVID-19 Vaccine ( season) 2023 Care Teams Nutrition Assistant Relationship Specialty Start Date End Date Michael Franco MD PCP - General 01/31/11
--- OUTSIDE RECORDS SUMMARY | 2024-01-09 01:28 | XMS_ITS | Encounter Summary ---
[place] [address] Care Team Providers Care Noc Analyst Name Role Phone Michale Franco MD Primary Care Provider [phone] Encounter Details Date Type Department Care Team (Late Contact Info) Description 09/21/2010 Orders [place] [address] Kalpana French [facility] [place] [address] Elevated PSA (Primary Dx) Social History Tobacco Use Types [...] AM EDT Office Visit Hematology/Oncology at [address] [phone] Miguelina Lucia [facility] [place] [address] 02/27/2024 2:15 PM EDT Office Visit Dermatology at [address] [place] [phone] Eliel Vanessa MD [address], [place] [address] documented as of this encounter Results * PSA (10/09/2010 1:08 PM EDT) Prostate Specific Antigen (Ultrasensitiv e) 0.09 0.00 - 4.00 ng/mL JUAN MDropifi Blood specimen (specimen) 10/09/2010 1:08 PM EDT 10/09/2010 1:17 PM EDT Michael Zapata MD CHEMISTRY ORDERABLES [facility] [employer] documented in this encounter Visit Diagnoses Diagnosis Elevated PSA- Primary Elevated prostate specific antigen (PSA) documented in this encounter Care Teams Noc Analyst Relationship Specialty Start Date End Date Michael Franco MD [address] [place] [address] PCP - General 04/03/10 05/15/21 documented as of this encounter
--- OUTSIDE RECORDS SUMMARY | 2024-01-09 01:28 | XMS_ITS | Encounter Summary ---
[place] [address] Care Team Providers Care Chimney Builder Name Role Phone Michael Franco MD Primary Care Provider [phone] Reason for Visit * Reason Comments Radiation Follow-up Prostate Cancer Encounter Details Date Type Department Care Team (Latest Contact Info) Description 02/04/2011 9:50 AM EDT - 02/04/2011 11:59 PM EDT Hospital Encounter [place] [address] Hector Perry MD [facility] [place] [address] Prostate cancer Discharge Disposition: Home Social History [...] Sign Reading Time Taken Comments Blood Pressure 136/76 02/04/2011 9:56 AM EDT Pulse 75 02/04/2011 9:56 AM EDT Temperature 36.7 ??C (98 ??F) 02/04/2011 9:56 AM EDT Respiratory Rate 20 02/04/2011 9:56 AM EDT Oxygen Saturation 98% 02/04/2011 9:56 AM EDT Inhaled Oxygen Concentration - - Weight 110.2 kg (243 lb) 02/04/2011 9:56 AM EDT Height - - Body Mass Index 32.06 10/31/2010 9:00 AM EDT documented in this encounter Discharge Instructions * Patient Instructions* Hector Perry MD - 02/04/2011 12:26 PM EDT With PSA gradually increasing, and your otherwise good health and age, treatment with radiation therapy at this point in time makes sense. Adding hormones on top of this treatment is a maximally aggressive approach, and perhaps may be of benefit. We will write you for Casodex, one pill daily. Please let us know when you start this medication. After two weeks of this medication you should have a Lupron injection. This can be done at our [facility] facility. We will then have you return here in about a month or so for radiation treatment planning. Please call with any questions or concerns. documented in this encounter Medications at Time [...] Progress Notes * Hector Perry MD - 02/04/2011 11:45 AM EDT Identification Ayad Kauffman Sr. is a 70 y.o. gentleman with rising PSA s/p prostatecomy in 2006, [place] 7/10 tumor at that time without ISAAK, Stage [id number]. PSA has been rising gradually; today it is 0.13. He was recently seen in [facility] by Dr. Olson. He presents to further discuss options. Interval history Following his surgery in November 2006, Mr. Kauffman recuperated well. His post-op PSA history is as follows: 12/19/06 0.04 04/01/07 0.03 12/21/08 0.06 03/22/09 0.05 08/23/09 0.04 12/20/09 0.06 03/13/10 0.07 10/09/10 0.09 02/04/11 0.13 Symptomatically, he is currently doing very well, with current IPSS score at 0. No dysuria, no hematura, no spotting. Not wearing pads. Bowel movements are regular, 1-2 a day, without constipation or diarrhea, no blood DC. Of note, he had colonoscopy last week, which identified a very small polyp, likely benign (done at [facility]). Final pathology will be available shortly, per the patient. Since the prostatectomy erections have not been working (AMPARO score 1), though they were functionalprior to the surgery. Otherwise, he is active, riding his motorcycle, ambulating comfortably. 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 Review of Systems is otherwise unremarkable. Current outpatient prescriptions ordered prior to encounter Medication Sig Dispense Refill ??? aspirin 325 mg tablet Take 325 mg by mouth daily. ??? lisinopril (PRINIVIL;ZESTRIL) [...] ??? GLUCOSAMINE HCL/CHONDRO EVANS A (GLUCOSAMINE-CHONDROITIN ORAL) No Known Allergies Physical Exam BP 136/76 Pulse 75 Temp(Src) 36.7 ??C (98 ??F) (Oral) Resp 20 Wt 110.224 kg (243 lb) WoH179% Sclera anicteric. No adenopathy in cervical, supraclavicular, or inguinal regions. Lungs clear in all salas. No back or costo-vertebral angle tenderness. CV with regular rate and rhythm Abdomen soft, nontender, positive bowels sounds, no hepatosplenomegaly. No suprapubic tenderness. External genitalia unremarkable. No pretibial edema. Rectal with normal tone, guiac negative stool, no masses. Empty prostatic fossa. Investigations PSA history as above. Pathology report from 11/11/06 documents: ---Pathologic Diagnosis--- Specimen type: Prostatectomy Histologic type: Adenocarcinoma [place] grade: 3+4 Michelle score: 7 Location of tumor: Bilateral lobes % prostate involved by tumor: 35 Extracapsular extension (ISAAK):See comment Seminal vesicle invasion: Absent Margins: Margins uninvolved by invasive carcinoma Perineural invasion: Present Lymphovascular invasion: Absent Additional findings: HGPIN TNM STAGING (AJCC, 6th ed., 2003): Extent of invasion: pT2c: (organ confined, bilateral disease) Regional lymph nodes: pNX (cannot be assessed) Distant metastasis: pMX (cannot be assessed) CR-0 ---Comment--- _ In sections A7, 15, 19 (all contiguous sections from the left lobe anteriorly) there appears to be some fat invaginating into the prostatic parentchyma. Though tumor is seen around adipose tissue in these sections, there is scant stroma around these foci and an interpretation of extracapsular extension is not warranted. These sections were reviewed with Dr Menchaca who concurs. Assessment and Plan Mr. Kauffman presents with recurrent prostate cancer following prostatectomy performed 11/11/06. Pathology at that time demonstrated no ISAKA or positive margins: [id number]. Calculated doubling time of PSA values from 12/19/06 through 02/04/11 is 31 months. Current PSA level is 0.13 ng/ml. Given his overall young age and the evident disease recurrence with likely acceleration of the doubling time to be anticipated in the years ahead, Mr. Kauffman is interested in pursuing treatment at this time. The lower the PSA and the earlier the disease recurrence when treated, the less likely that the disease will have spread beyond the pelvis. At this point likelihood of achieving 4-year biochemical progression-free survival of his prostate cancer is about 60-70% with radiation therapy (see Abhilash et al, JCO 2007). We reviewed details of radiation therapy, including potential short- and long-term side effects. We also discussed hormonal therapy as a potential additional adjuvant therapy. He would be a potential candidate for enrollment in RTOG protocol 0534, which randomizes patientswith recurrent prostate cancer following prostatectomy to radiation therapy alone (delivered to theprostate bed) or to radiation in combination with androgen ablation treatment (delivered to prostate bed +/- pelvic nodes). He did take a protocol consent, but he also indicated that he preferred to proceed with androgen ablation therapy along with definitive external beam radiotherapy, so a prescription starting Casodex was electronically sent to his pharmacy. We emphasized that he could consider his options further once he was home, and if he preferred enrollment in the protocol or another option, that would be available for him, as long as he did not start the hormonal treatments. He and his will consider these options and issues further. We will follow-up with him shortly. Ayad Kauffman Sr. was seen in follow-up for a total of 40 minutes, with 35 minutes of that time spent discussing his current clinical condition, reviewing treatment options, and planning further management. documented in this encounter Plan of Treatment Upcoming Encounters Date Type Department Care Team (Late st Contact Info) Description 01/20/2024 9:30 AM EDT Office Visit Hematology/Oncology at [address] [phone] Miguelina Lucia APRN [facility] [place] [address] 02/27/2024 2:15 PM EDT Office Visit Dermatology at [address] [place] [phone] Eliel Vanessa MD [address], [place] [address] documented as of this encounter Visit Diagnoses Diagnosis Prostate cancer Malignant neoplasm of prostate documented in this encounter Care Teams Chimney Builder Relationship Specialty Start Date End Date Michael Franco MD [address] [place] [address] PCP - General 04/03/10 05/15/21 documented as of this encounter
--- OUTSIDE RECORDS SUMMARY | 2024-01-09 01:28 | XMS_ITS | Encounter Summary ---
Author Organization [facility] [place] [address] Care Team Providers Care Cooker Loader Name Role Phone Michael Franco MD Primary Care Provider [phone] Encounter Details Date Type Department Care Team (Late Contact Info) Description 07/16/2011 Orders Only Hematology Oncology at [address] [phone] Lucretia Hammer RN Prostate cancer (Primary Dx) Social History [...] AM EDT Office Visit Hematology/Oncology at [address] [phone] Miguelina Lucia APRN [facility] [address] 02/27/2024 2:15 PM EDT Office Visit Dermatology at [address] [place] [address] Eliel Vanessa MD [address], [place] [address] documented as of this encounter Results * PSA (07/18/2011 11:36 AM EST) Prostate Specific Antigen (Ultrasensitiv e) <0.03 0.00 - 4.00 ng/mL EFREM PRISCILLAKELSEYIUM Blood specimen (specimen) 07/18/2011 11:36 AM EST 07/18/2011 11:40 AM EST Narrative Resulting Agency Comment Spec In Lab Michael Meneses MD CHEMISTRY ORDERABLES [facility] SANCHEZ documented in this encounter Visit Diagnoses Diagnosis Prostate cancer- Primary Malignant neoplasm of prostate documented in this encounter Care Teams Cooker Loader Relationship Specialty Start Date End Date Michael Franco MD [address] [facility] [address] [place] [address] PCP - General 04/03/10 05/15/21 documented as of this encounter
--- OUTSIDE RECORDS SUMMARY | 2024-01-09 01:28 | XMS_ITS | Encounter Summary ---
[place] [address] Care Team Providers Care Aircraft Launch And Recovery Technician Name Role Phone Michael Franco MD Primary Care Provider [phone] Encounter Details Date Type Department Care Team (Late st Contact Info) Description 03/29/2011 2:22 PM EST - 03/29/2011 11:59 PM EST Hospital Encounter [place] [address] Social History Tobacco Use Types Packs/Day Years [...] 9:30 AM EDT Office Visit Hematology/Oncology at [address] [phone] Miguelina Lucia LEASING ASSOCIATE [facility] [place] [address] 02/27/2024 2:15 PM EDT Office Visit Dermatology at [place] [address] [place] [address] Eliel Vanessa MD [address], [place] [address] documented as of this encounter Visit Diagnoses Not on filedocumented in this encounter Care Teams Aircraft Launch And Recovery Technician Relationship Specialty Start Date End Date Michael Franco MD [address] [facility] 1 [place] [address] PCP - General 04/03/10 05/15/21 documented as of this encounter
--- OUTSIDE RECORDS SUMMARY | 2024-01-09 01:28 | XMS_ITS | Encounter Summary ---
Author Organization [facility] [place] [address] Care Team Providers Care Emergency Services Professional Name Role Phone Michael Franco MD Primary Care Provider [phone] Reason for Visit * Reason Comments Radiation Treatment Encounter Details Date Type Department Care Team (Late st Contact Info) Description 06/05/2011 9:30 AM EST Follow-Up Radiation Oncology at [address] [phone] Michael Olson MD [facility] [place] [address] Prostate ca (Primary Dx) Discharge Disposition: Home Social History [...] Sign Reading Time Taken Comments Blood Pressure 143/90 06/05/2011 10:01 AM EST Pulse 86 06/05/2011 10:01 AM EST Temperature 36.8 ??C (98.2 ??F) 06/05/2011 10:[address] Respiratory Rate 16 06/05/2011 10:01 AM EST Oxygen Saturation 97% 06/05/2011 10:01 AM EST Inhaled Oxygen Concentration - - Weight 113.9 kg (251 lb) 06/05/2011 10:01 AM EST Height - - Body Mass Index 33.12 10/31/2010 9:00 AM EDT documented in this encounter Progress Notes * Michael Olson MD - 06/05/2011 11:24 AM EST ON TREATMENT VISIT: DATE:06/05/2011 PATIENT STATUS: Prostate;Post LRP 2006: GS=7/10, no ISAAK. St [id number] . TREATMENT PLAN: RADIATION --on hormones Site Technique Dose/ Fraction Fraction Number MeV p e TOTAL DOSE Treatment Dates PTV 1 Bed+LN I IMRT 180 25 p 4500 05/14 to DOSE to DATE:3060 cGy in 17 FX RADIATION TREATMENT IMAGING: matches original approved [...] AM EDT Office Visit Hematology/Oncology at [address] [phone] Miguelina Lucia APRN [facility] [place] [address] 02/27/2024 2:15 PM EDT Office Visit Dermatology at [place] [address] [place] [address] Eliel Vanessa MD [address], [place] [address] documented as of this encounter Visit Diagnoses Diagnosis Prostate CA- Primary Malignant neoplasm of prostate documented in this encounter Care Teams Emergency Services Professional Relationship Specialty Start Date End Date Michael Franco MD [address] [place] [address] PCP - General 04/03/10 05/15/21 documented as of this encounter
[2024-01-09 12:24] LABS: Abs Immature Grans 0.02 10^3/uL (0.0-0.06); Absolute Basophil Count 0.05 10^3/uL (0.0-0.2); Absolute Eosinophil Count 0.25 10^3/uL (0.0-0.7); Absolute Lymphocyte Count 1.53 10^3/uL (1.2-3.4); Absolute Monocyte Count 0.46 10^3/uL (0.1-0.8); Absolute Neutrophil Count 3.83 10^3/uL (1.2-6.7); Basophils % 0.8 %; Eosinophils % 4.1 %; HCT 42.3 % (40.0-50.0); HGB 14.5 g/dL (13.5-17.5); Immature Grans % 0.3 %; Lymphocytes % 24.9 %; MCH 33.9 pg (27.0-33.0); MCHC 34.3 % (32.0-36.0); MCV 99 fL (80-95); MPV 10.4 fL (8.0-11.0); Monocytes % 7.5 %; Neutrophils % 62.4 %; Platelet Count 137 10^3/uL (130-400); RBC 4.28 10^6/uL (4.36-5.78); RDW 12.9 % (11.8-14.1); RDW-SD 46.3 fL; WBC 6.14 10^3/uL (4.4-10.8)
[2024-01-09 12:45] LABS: ALT 26 U/L (16-63); AST 18 U/L (15-37); Albumin 3.7 g/dL (3.4-5.0); Alkaline Phosphatase 59 U/L (46-116); Anion Gap 9.3 mmol/L (3-11); BUN 21 mg/dL (7-18); Bilirubin, Total 0.86 mg/dL (0.2-1.0); CO2 26.7 mmol/L (21.0-32.0); CREATININE 0.9 mg/dL (0.70-1.30); Calcium 9.2 mg/dL (8.5-10.1); Chloride 107 mmol/L (98-107); Estimated GFR 85.27 (mL/min/1.73m2); Glucose 107 mg/dL (74-106); Potassium 3.9 mmol/L (3.5-5.1); Sodium 143 mmol/L (136-145); Total Protein 6.9 g/dL (6.4-8.2)
[2024-01-15 15:08] LABS: Testosterone, Total 354 ng/dL (240-950)
== END 2024-01-09 01:23 | disposition home or self-care (01) ==
LOC: LOS 01:23
PROVIDERS: PCP Nurse Practitioner Family; Visit Provider Internal Medicine
DX: C61 Malignant neoplasm of prostate (principal)
CPT/HCPCS: 36415; 80053; 84153; 84403; 85025

== ENCOUNTER → 2024-03-01 13:26 | Outpatient (BNVA) | payer MEDICARE, SELFPAY | PROVIDERS: PCP Nurse Practitioner Family; Visit Provider Internal Medicine Cardiovascular Disease | DX: I35.0 Nonrheumatic aortic (valve) stenosis (principal) | CPT/HCPCS: 99213 ==

== ENCOUNTER 2024-04-13 02:30 | Outpatient (CLI) | payer MEDICARE, SELFPAY ==
[2024-04-13 12:33] LABS: Abs Immature Grans 0.02 10^3/uL (0.0-0.06); Absolute Basophil Count 0.06 10^3/uL (0.0-0.2); Absolute Eosinophil Count 0.12 10^3/uL (0.0-0.7); Absolute Lymphocyte Count 1.85 10^3/uL (1.2-3.4); Absolute Neutrophil Count 4.33 10^3/uL (1.2-6.7); Basophils % 0.9 %; Eosinophils % 1.7 %; HCT 44.7 % (40.0-50.0); HGB 15.4 g/dL (13.5-17.5); Immature Grans % 0.3 %; Lymphocytes % 26.9 %; MCH 33.6 pg (27.0-33.0); MCHC 34.5 % (32.0-36.0); MCV 97 fL (80-95); MPV 10.4 fL (8.0-11.0); Monocytes % 7.3 %; Neutrophils % 62.9 %; Platelet Count 142 10^3/uL (130-400); RBC 4.59 10^6/uL (4.36-5.78); RDW 12.8 % (11.8-14.1); RDW-SD 46.4 fL; WBC 6.88 10^3/uL (4.4-10.8)
[2024-04-13 12:47] LABS: ALT 27 U/L (16-63); AST 19 U/L (15-37); Albumin 3.9 g/dL (3.4-5.0); Alkaline Phosphatase 73 U/L (46-116); Anion Gap 8.4 mmol/L (3-11); BUN 17 mg/dL (7-18); Bilirubin, Total 0.77 mg/dL (0.2-1.0); CO2 30.6 mmol/L (21.0-32.0); Calcium 9.6 mg/dL (8.5-10.1); Chloride 105 mmol/L (98-107); Estimated GFR 75.14 (mL/min/1.73m2); Glucose 108 mg/dL (74-106); Potassium 4.3 mmol/L (3.5-5.1); Sodium 144 mmol/L (136-145); Total Protein 7.5 g/dL (6.4-8.2)
[2024-04-14 18:19] LABS: PSA, Ultrasensitive 0.76 ng/mL (<= 7.2)
[2024-04-18 15:11] LABS: Testosterone, Total 551 ng/dL (240-950)
== END 2024-04-13 02:31 | disposition home or self-care (01) ==
LOC: LOS 02:31
PROVIDERS: PCP Nurse Practitioner Family; Visit Provider Internal Medicine
DX: C61 Malignant neoplasm of prostate (principal)
CPT/HCPCS: 36415; 80053; 84153; 84403; 85025

== ENCOUNTER 2024-06-22 13:59 | Outpatient (CLI) | payer MEDICARE, SELFPAY ==
--- NOTE | 2024-06-22 13:30 | DI.US_ITS ---
Exam(s) US LOWER EXTREMITY VENOUS RT EXAM: US LOWER EXTREMITY VENOUS RT CLINICAL HISTORY: right leg swelling, M79.89 TECHNIQUE: Grayscale, color, and doppler imaging of the deep venous system of the right lower extrem ity was performed. COMPARISON: US US ECHOCARDIOGRAM from 07/18/2023 FINDINGS: There is no evidence of intraluminal thrombus and there is normal compression and augmentation demons trated within the common femoral vein, femoral vein, and popliteal vein. In the ipsilateral calf the interrogated veins also exhibit normal compression/ augmentation properti es. The ipsilateral saphenofemoral junction is patent. IMPRESSION: 1. No evidence of DVT in the right lower extremity. DATA REPOSITORY:
--- NOTE | 2024-06-22 13:41 | DI.RAD_ITS ---
Exam(s) XR FOOT RT COMPLETE EXAM: XR FOOT RT COMPLETE CLINICAL HISTORY: right foot pain, M79.89. TECHNIQUE: 2D digital imaging was performed. COMPARISON: No exams were available for comparison FINDINGS: 3 views No evidence of fracture or diastasis of the Lisfranc joint. Bone density normal. No osseous lesions . No pes planus. No significant degenerative changes in the metatarsophalangeal joints and the tars ometatarsal joints also appear unremarkable. Small enthesophyte noted on the posterior calcaneus. T here is no inferior calcaneal spur. IMPRESSION: No significant radiograph findings in the right foot. DATA REPOSITORY: RADIATION DOSE DELIVERED:
--- NOTE | 2024-06-22 13:41 | DI.RAD_ITS ---
Exam(s) XR ANKLE RT COMPLETE EXAM: XR ANKLE RT COMPLETE CLINICAL HISTORY: Rt ankle pain, M25.571. TECHNIQUE: 2D digital imaging was performed. COMPARISON: No exams were available for comparison FINDINGS: 3 views No evidence of fracture or widening the ankle mortise. Talar dome unremarkable. No significant soft tissue swelling. Bone density normal. No significant degenerative changes. No inferior calcaneal spur. Small enthesophyte noted on the posterior calcaneus Achilles insertion site. IMPRESSION: No acute osseous findings in the right ankle. DATA REPOSITORY: RADIATION DOSE DELIVERED:
== END 2024-06-22 14:19 ==
LOC: DI 14:00
PROVIDERS: PCP Nurse Practitioner Family; Visit Provider Nurse Practitioner Family
DX: M25.571 Pain in right ankle and joints of right foot (principal); M79.89 Other specified soft tissue disorders
CPT/HCPCS: 73610; 73630; 93971

== ENCOUNTER 2024-08-05 09:06 | Outpatient (CLI) | payer MEDICARE, SELFPAY ==
--- NOTE | 2024-08-05 09:00 | RT.EKG_ITS ---
APPROVED REPORT Exam: Resting ECG Reason for Exam: palpitations Patient Location: O HR:55 bpm ECG Measurements Heart Rate 55 AXIS NC 194 P -32 QRSd 160 QRS -51 QT 441 T -2 QTc 422 Conclusion Sinus rhythm...normal P axis, V-rate 50- 99 Ventricular premature complex...V complex w/ short R-R interval RBBB and LAFB...QRSd >120mS, axis(-40,240) Left ventricular hypertrophy...multiple voltage criteria
== END 2024-08-05 09:07 | disposition home or self-care (01) ==
LOC: DI.CARD 09:07
PROVIDERS: PCP Nurse Practitioner Family; Visit Provider Internal Medicine Cardiovascular Disease
DX: R00.2 Palpitations (principal)
CPT/HCPCS: 93010

== ENCOUNTER → 2024-08-05 13:47 | Outpatient (BNVA) | payer MEDICARE, SELFPAY | PROVIDERS: PCP Nurse Practitioner Family; Visit Provider Internal Medicine Cardiovascular Disease | DX: I35.0 Nonrheumatic aortic (valve) stenosis (principal) | CPT/HCPCS: 93005; 99213 ==

== ENCOUNTER 2024-08-26 09:43 | Observation (INO) | payer MEDICARE, SELFPAY ==
[2024-08-26] VITALS (49 sets, daily range): BP systolic 96–173; BP diastolic 41–100; PULSE 69–92; RESP 16–30; TEMP 36.9–37.5; O2SAT 94–98
--- NOTE | 2024-08-26 10:15 | RT.EKG_ITS ---
APPROVED REPORT Exam: Resting ECG Reason for Exam: dizzy,weak Patient Location: E HR:79 bpm ECG Measurements Heart Rate 79 AXIS MT 170 P -34 QRSd 172 QRS -49 QT 438 T 4 QTc 504 Conclusion Sinus rhythm...normal P axis, V-rate 60- 99 RBBB and LAFB...QRSd >120mS, axis(-40,240) Probable left ventricular hypertrophy...(RaVL+SV3)xQRSd >280
[2024-08-26 10:16] LABS: Abs Immature Grans 0.04 10^3/uL (0.0-0.06); Absolute Basophil Count 0.04 10^3/uL (0.0-0.2); Absolute Eosinophil Count 0.12 10^3/uL (0.0-0.7); Absolute Neutrophil Count 3.64 10^3/uL (1.2-6.7); Basophils % 0.7 %; HCT 46.1 % (40.0-50.0); HGB 15.6 g/dL (13.5-17.5); Immature Grans % 0.7 %; Lymphocytes % 21.5 %; MCH 32.8 pg (27.0-33.0); MCHC 33.8 % (32.0-36.0); MCV 97 fL (80-95); MPV 10.1 fL (8.0-11.0); Monocytes % 14.9 %; Neutrophils % 60.2 %; Platelet Count 110 10^3/uL (130-400); RBC 4.75 10^6/uL (4.36-5.78); RDW 12.7 % (11.8-14.1); RDW-SD 45.3 fL; WBC 6.04 10^3/uL (4.4-10.8)
--- NOTE | 2024-08-26 10:42 | DI.CT_ITS ---
Exam(s) CT HEAD WO EXAM: CT HEAD WO CLINICAL HISTORY: confusion, ams. TECHNIQUE: Imaging Protocol: Axial computed tomography images with coronal and sagittal reformatted images were created and reviewed COMPARISON: No exams were available for comparison FINDINGS: There are no skull fractures. There is no fluid in the visualized paranasal sinuses. There is no evidence of intracranial hemorrhage, mass effect, or shift of midline structures. There are no extra-axial fluid collections. The ventricles are not enlarged or shifted and there is no blo od within the ventricular system nor within the basal cisterns. Small nonhemorrhagic lacunar infarct is noted in the left external capsule. No large territorial inf arct. IMPRESSION: No evidence of intracranial hemorrhage. There is a small 4 mm nonhemorrhagic lacunar infarct in the left external capsule, age indeterminate. If clinically indicated follow-up MRI with diffusion imaging can be performed. Report called by myself to ER provider 08/26/2024 at 11:38 a.m. RADIATION DOSE DELIVERED: 968.79mGy.cm Total DLP DATA REPOSITORY: All CT scans at this facility are submitted to the National Radiology Data Registry (NRDR) Dose Index Registry (DIR) with the [employer] (ACR). RADIATION OPTIMIZATION: All CT scans at this facility use at least one of these dose optimization te chniques: automated exposure control; mA and/or kV adjustment per patient size (includes targeted exa ms where dose is matched to clinical indication); or iterative reconstruction.
[2024-08-26 10:49] LABS: ALT 28 U/L (16-63); AST 41 U/L (15-37); Albumin 4.1 g/dL (3.4-5.0); Alkaline Phosphatase 74 U/L (46-116); Anion Gap 9.2 mmol/L (3-11); BUN 19 mg/dL (7-18); CO2 27.8 mmol/L (21.0-32.0); Calcium 9.4 mg/dL (8.5-10.1); Chloride 104 mmol/L (98-107); Estimated GFR 75.14 (mL/min/1.73m2); Glucose 115 mg/dL (74-106); Potassium 4.1 mmol/L (3.5-5.1); Sodium 141 mmol/L (136-145); Total Protein 7.8 g/dL (6.4-8.2); Troponin I 46 ng/L (<or=76)
[2024-08-26 11:03] LABS: COVID-19 PCR Negative (Negative); Influenza A PCR Positive (Negative); Influenza B PCR Negative (Negative); RSV PCR Negative (Negative)
[2024-08-26 11:06] LABS: Source Nasopharynx
[2024-08-26] MEDS: Normal Saline 1,000 ML 1000 ML IV (11:30)
[2024-08-26 11:33] LABS: Troponin I 45 ng/L (<or=76)
[2024-08-26 12:09] LABS: Bilirubin Small (Negative); Blood Negative (Negative); Clarity Clear (Clear); Glucose Negative (Negative); Ketones 40 mg/dL (Negative); Leukocyte Esterase Negative (Negative); Nitrite Negative (Negative); Specific Gravity >= 1.030 (1.005-1.025); pH 5.5 (5-8)
--- NOTE | 2024-08-26 12:15 | DI.MRI_ITS ---
Exam(s) MR BRAIN WO EXAM: MR BRAIN WO CLINICAL HISTORY: left lacunar infarct on ct TECHNIQUE: Multiplanar multisequence MRI of the brain was performed. COMPARISON: CT CT HEAD WO from 08/26/2024 FINDINGS: Exam is mildly limited by motion. VENTRICLES AND EXTRA AXIAL SPACES: Normal in size and morphology for the patient's age. MIDLINE SHIFT: None. CEREBRAL PARENCHYMA: No focus of restricted diffusion to suggest acute infarct. No space-occupying le brian identified. Mild atrophy consistent with the patient's age. Mild scattered foci of high signal in the white matter consistent with sequela of chronic microvascular disease. There is a small area of CSF signal in the left basal ganglia which could represent old lacunar infarct versus prominent pe rivascular space. BRAINSTEM/CEREBELLUM: Normal. VISUALIZED PARANASAL SINUSES: Mucosal thickening of the ethmoid sinuses. MASTOIDS:Clear. Vasculature: Normal flow void. PITUITARY GLAND: Unremarkable. ORBITS: Unremarkable. IMPRESSION: No evidence of acute infarct. Old lacunar infarct versus prominent perivascular space in the left ba bijal ganglia region. DATA REPOSITORY:
[2024-08-26 12:16] LABS: Bacteria Negative HPF (Negative); C & S Indicated? No; Casts 0-2 Hyaline LPF (Negative); Crystals Negative HPF (Negative); Epithelial Cells Rare HPF (Negative); Mucus Negative (Negative); RBC 0-2 HPF (0-2); WBC Negative HPF (0-5)
--- NOTE | 2024-08-26 15:01 | ED.GENADUL_ITS ---
Discharge Plan Disposition Patient Disposition: Admit to [facility] Discharge Details Clinical Impression: Influenza A, CVA (cerebral vascular accident) Admit Date/Time: 08/26/24 16:36 Admit Provider: Lupillo Lujan Attending Provider: Lupillo Lujan Primary Care Provider: [facility] ED Provider: Aminta Mccormick Discharge Data Discharge Date/Time-TO BE ENTERED AT DEPARTURE: 08/26/24 20:04 HPI General Date/Time Provider Initiated Documentation: 08/26/24 09:57 . HPI Narrative: The patient is an 83-year-old male presenting with weakness and lightheadedness. He had to lower himself to the floor today and could not stand back up. For the past 2 days, he has been weak at home, with waxing and waning symptoms. His family is concerned about his safety and difficulty with ambulation. No chest pain, shortness of breath, cough, or trauma associated with the fall. He felt exhausted after driving to [place] on Friday. His family members have upper respiratory symptoms, but he has not exhibited these. His family reports intermittent nocturnal hallucinations. Neurology appointment for possible dementia screening is scheduled for October 2024. Related Data Home Medications ?Medication ?Instructions ?Recorded ?Confirmed [facility] Senior Tablet 1 ea PO DAILY 03/22/13 08/26/24 flaxseed 1,000 mg capsule 1,000 mg PO DAILY 03/22/13 08/26/24 [id number] C-Mn 750 1 ea PO DAILY 03/22/13 08/26/24 mg-600 mg-55 mg-5 mg tablet ibuprofen 400 mg tablet 400 mg PO PRN 10/31/15 08/26/24 amoxicillin 500 mg tablet 2 g PO ONCE #4 tab-caps 11/24/15 08/26/24 coenzyme Q10 100 mg capsule (Co 100 mg PO DAILY 04/08/17 08/26/24 Q-10) fluorouracil 5 % topical cream 1 applic topical DAILY #40 grams 06/16/23 08/26/24 (Efudex) mecobalamin (vitamin B12) 1,000 1,000 mcg PO DAILY 06/16/23 08/26/24 mcg lozenges metoprolol succinate 25 mg 25 mg PO DAILY #90 tabs 10/28/23 08/26/24 tablet,extended release 24 hr oxybutynin chloride 5 mg tablet 5 mg PO BID PRN bladder spasms #20 08/16/24 08/26/24 tabs rosuvastatin 10 mg tablet 10 mg PO DAILY #90 tabs 08/16/24 08/26/24 tamsulosin 0.4 mg capsule 0.4 mg PO DAILY PRN Kidney stones 08/16/24 08/26/24 #30 caps Previous Rx's ?Medication ?Instructions ?Recorded fluorouracil 5 % topical cream 1 applic topical DAILY #40 grams 06/16/23 (Efudex) metoprolol succinate 25 mg 25 mg PO DAILY #90 tabs 10/28/23 tablet,extended release 24 hr oxybutynin chloride 5 mg tablet 5 mg PO BID PRN bladder spasms #20 08/16/24 tabs rosuvastatin 10 mg tablet 10 mg PO DAILY #90 tabs 08/16/24 tamsulosin 0.4 mg capsule 0.4 mg PO DAILY PRN Kidney stones 08/16/24 #30 caps Allergies Allergy/AdvReac Type Severity Reaction Status Date / Time No Known Allergies Allergy Verified 08/26/24 09:56 General Stated Complaint: Dizzy/Sync JORJE: 3 Exam Narrative Exam Narrative: General Appearance: Alert and oriented x2. Vital signs: Within normal limits. HEENT: Pupils equal, round, reactive to light and accommodation. Respiratory: Within normal limits. Cardiovascular: Gastrointestinal: Genitourinary: Lymphatic: Back, Musculoskeletal: Extremities: Skin: Warm and dry, no rash. Neurological: Speaking in complete coherent sentences. Psychiatric: Other observations: No signs of trauma. Course Vital Signs Vital signs: Vital Signs Temperature 36.9 C 08/26/24 09:44 Pulse 83 08/26/24 09:44 Respiratory Rate 16 08/26/24 09:44 Blood Pressure 173/100 H 08/26/24 09:44 Pulse Oximetry 96 08/26/24 09:44 Temperature 36.9 C 08/26/24 09:44 Pulse 75 08/26/24 14:01 Pulse 74 08/26/24 14:01 Respiratory Rate 18 08/26/24 14:01 Blood Pressure 96/78 L 08/26/24 14:01 Blood Pressure Mean 83 08/26/24 14:01 Pulse Oximetry 98 08/26/24 11:30 Oxygen Delivery Method Room Air 08/26/24 09:44 Oxygen Flow Rate 0 08/26/24 09:44 Pain Level 0 08/26/24 09:44 Lab/Test Results Lab/Test Results: Laboratory Tests Range/Units 08/26/24 08/26/24 08/26/24 10:04 10:20 11:07 WBC (4.4-10.8) 10^3/uL 6.04 RBC (4.36-5.78) 10^6/uL 4.75 Hgb (13.5-17.5) g/dL 15.6 Hct (40.0-50.0) % 46.1 MCV (80-95) fL 97 H MCH (27.0-33.0) pg 32.8 MCHC (32.0-36.0) % 33.8 RDW (11.8-14.1) % 12.7 Plt Count (130-400) 10^3/uL 110 L MPV (8.0-11.0) fL 10.1 Immature Gran % % 0.7 Neutrophils % % 60.2 Lymphocytes % % 21.5 Monocytes % % 14.9 Eosinophils % % 2.0 Basophils % % 0.7 Nucleated RBC % (0.0-0.3) % 0.0 Absolute Neutrophils (1.2-6.7) 10^3/uL 3.64 Absolute Lymphocytes (1.2-3.4) 10^3/uL 1.30 Absolute Monocytes (0.1-0.8) 10^3/uL 0.90 H Absolute Eosinophils (0.0-0.7) 10^3/uL 0.12 Absolute Basophils (0.0-0.2) 10^3/uL 0.04 Sodium (136-145) mmol/L 141 Potassium (3.5-5.1) mmol/L 4.1 Chloride (98-107) mmol/L 104 Carbon Dioxide (21.0-32.0) mmol/L 27.8 Anion Gap (3-11) mmol/L 9.2 BUN (7-18) mg/dL 19 H Creatinine (0.70-1.30) mg/dL 1.0 Est GFR (CKD-EPI 2020) (mL/min/1.73m2) 75.14 Glucose (74-106) mg/dL 115 H Calcium (8.5-10.1) mg/dL 9.4 Magnesium (1.8-2.4) mg/dL 2.0 Total Bilirubin (0.2-1.0) mg/dL 1.0 AST (15-37) U/L 41 H ALT (16-63) U/L 28 Alkaline Phosphatase (46-116) U/L 74 Troponin I (<or=76) ng/L 46 45 Total Protein (6.4-8.2) g/dL 7.8 Albumin (3.4-5.0) g/dL 4.1 Urine Color (Yellow) Urine Clarity (Clear) Urine pH (5-8) Ur Specific [place] (1.005-1.025) Urine Protein (Neg-Trace) mg/dL Urine Ketones (Negative) mg/dL Urine Blood (Negative) Urine Nitrite (Negative) Urine Bilirubin (Negative) Urine Urobilinogen (Up to 0.2) mg/dL Ur Leukocyte Esterase (Negative) Urine RBC (0-2) HPF Urine WBC (0-5) HPF Ur Epithelial Cells (Negative) HPF Urine Crystals (Negative) HPF Urine Bacteria (Negative) HPF Urine Casts (Negative) LPF Urine Mucus (Negative) Ur Culture Indicated? Urine Glucose (Negative) mg/dL COVID-19 Source Nasopharynx SARS-CoV-2 (PCR) (Negative) Negative Influenza Type A (PCR) (Negative) Positive A Influenza Type B (PCR) (Negative) Negative RSV (PCR) (Negative) Negative Range/Units 08/26/24 08/26/24 11:34 12:59 WBC (4.4-10.8) 10^3/uL RBC (4.36-5.78) 10^6/uL Hgb (13.5-17.5) g/dL Hct (40.0-50.0) % MCV (80-95) fL MCH (27.0-33.0) pg MCHC (32.0-36.0) % RDW (11.8-14.1) % Plt Count (130-400) 10^3/uL MPV (8.0-11.0) fL Immature Gran % % Neutrophils % % Lymphocytes % % Monocytes % % Eosinophils % % Basophils % % Nucleated RBC % (0.0-0.3) % Absolute Neutrophils (1.2-6.7) 10^3/uL Absolute Lymphocytes (1.2-3.4) 10^3/uL Absolute Monocytes (0.1-0.8) 10^3/uL Absolute Eosinophils (0.0-0.7) 10^3/uL Absolute Basophils (0.0-0.2) 10^3/uL Sodium (136-145) mmol/L Potassium (3.5-5.1) mmol/L Chloride (98-107) mmol/L Carbon Dioxide (21.0-32.0) mmol/L Anion Gap (3-11) mmol/L BUN (7-18) mg/dL Creatinine (0.70-1.30) mg/dL Est GFR (CKD-EPI 2020) (mL/min/1.73m2) Glucose (74-106) mg/dL Calcium (8.5-10.1) mg/dL Magnesium (1.8-2.4) mg/dL Total Bilirubin (0.2-1.0) mg/dL AST (15-37) U/L ALT (16-63) U/L Alkaline Phosphatase (46-116) U/L Troponin I (<or=76) ng/L Cancelled Total Protein (6.4-8.2) g/dL Albumin (3.4-5.0) g/dL Urine Color (Yellow) Dark Yellow Urine Clarity (Clear) Clear Urine pH (5-8) 5.5 Ur Specific [place] (1.005-1.025) >= 1.030 H Urine Protein (Neg-Trace) mg/dL 100 H Urine Ketones (Negative) mg/dL 40 H Urine Blood (Negative) Negative Urine Nitrite (Negative) Negative Urine Bilirubin (Negative) Small H Urine Urobilinogen (Up to 0.2) mg/dL 1.0 H Ur Leukocyte Esterase (Negative) Negative Urine RBC (0-2) HPF 0-2 Urine WBC (0-5) HPF Negative Ur Epithelial Cells (Negative) HPF Rare Urine Crystals (Negative) HPF Negative Urine Bacteria (Negative) HPF Negative Urine Casts (Negative) LPF 0-2 Hyaline Urine Mucus (Negative) Negative Ur Culture Indicated? No Urine Glucose (Negative) mg/dL Negative COVID-19 Source SARS-CoV-2 (PCR) (Negative) Influenza Type A (PCR) (Negative) Influenza Type B (PCR) (Negative) RSV (PCR) (Negative) Medical Decision Making Urinalysis does not indicate infection. Influenza A+. CT scan shows possible left-sided basilar infarct. Initial Assessment: 83-year-old male presents with weakness and lightheadedness, significant episode today, no associated chest pain, shortness of breath, or cough. Family reports waxing and waning symptoms and difficulty with ambulation. Differential Diagnosis: - Weakness and lightheadedness: No associated chest pain, shortness of breath, or cough. Urinalysis negative for infection. Influenza A+. CT scan shows possible left-sided basilar infarct. MRI of the brain will be ordered to evaluate the infarct. Hospital admission may be necessary based on MRI results. Teleneurology consultation recommended. - Intermittent confusion and hallucinations: Experiencing nocturnal hallucinations. Neurology appointment scheduled for October for dementia screening. CT scan shows possible left-sided basilar infarct, potentially contributing to symptoms. MRI of the brain will be ordered to evaluate the infarct. Hospital admission may be necessary based on MRI results. ED Course: - Urinalysis negative for infection - Influenza A+ - CT scan shows possible left-sided basilar infarct - MRI of the brain will be ordered - Teleneurology consultation recommended Final Assessment: Patient presents with weakness, lightheadedness, and intermittent confusion and hallucinations. CT scan shows possible left-sided basilar infarct. MRI of the brain will be ordered to evaluate the infarct. Hospital admission may be necessary based on MRI results. Teleneurology consultation recommended. Clinical Impression: - Weakness and lightheadedness - Intermittent confusion and hallucinations Disposition: - Admission: Hospital admission may be necessary based on MRI results MDM Components Evaluation: - Number of Differential Diagnoses or Management Options: Weakness and lightheadedness, Intermittent confusion and hallucinations - Amount and Complexity of Data Reviewed: Urinalysis, Influenza test, CT scan, MRI order, Teleneurology consultation - Risk of Complication and Morbidity or Mortality: Possible left-sided basilar infarct, potential hospital admission Quality:SDOH Health Related Social Needs: No Data to Display PFSH All Active Problems Hip pain, bilateral (Acute) CVA (cerebral vascular accident) (Chronic) Weakness (Acute) Influenza A (Acute) Neck pain (Acute) Balance problem (Acute) COVID-19 (Acute) Onset-02/04/22 Vaccinated (Moderna) Palpitations (Acute) Ulcerative colitis (Chronic 03/23/13) Found on colonoscopy biopsy by Dr Starks 01/28/11. Asymptomatic, not present on colonoscopy 2016 Overactive bladder (Chronic 03/30/15) Obstructive sleep apnea (Chronic 03/30/15) CPAP Malignant tumor of prostate (Chronic) S/P Prostatectomy 2007 radiation 2012 Idiopathic peripheral neuropathy (Chronic 01/27/17) Hyperlipidemia (Chronic) Essential hypertension (Chronic) Aortic valve stenosis (Chronic) Porcine valve replacement 2011 Medical History Recurrent kidney stones Solar keratosis Diverticulosis of colon without diverticulitis Kidney stone Surgical History Tonsillectomy and adenoidectomy Prostatectomy (~11/2006) lap. Michelle VII Colonoscopy - MAC (06/04/16) Appendectomy Family History Mother , AGE 62 Breast cancer Father , AGE 74 Heart disease Brother , AGE 74 No problems noted. Brother Heart disease Maternal Grandfather , in 80s Prostate cancer Paternal Grandfather , in 70s No problems noted. Maternal Grandmother , in 70s Hypertension Paternal Grandmother , in 70s No problems noted. Brother , age 80 Heart disease Peripheral neuropathy Son No problems noted. Son No problems noted. Social History Smoking/Tobacco Use Status: Former Tobacco Use tobacco type: pipe and cigars Quit Date: 05/12/09 Pack-years: 50 Tobacco: How many years used: 10 Second Hand Exposure: Yes Smoking risk assessment performed?: Yes Alcohol Intake: current Alcohol Intake frequency: 0-2 drinks per day Alcohol type: beer, wine and hard liquor Details: 1oz about 4pm ea. day Drug use: Never Substance use type: does not use Adopted: No Caregiver/Support person: No Foster care: No Household members: spouse Housing: house Number of Children: 2 number of grandchildren: 3 Communication Needs: Hard of Hearing and Corrective Lenses Education Level: college Details: some Do you need help understanding health information?: Often current occupation: retired Pets and animals: Yes Pets and animals: dog(s) Sexually active: No Do you think of yourself as: straight/heterosexual Current gender identity: male What is your relationship status?: How often do you talk on the phone with friends or family?: three or more times per week How often do you get together with friends or relatives?: three or more times per week How often do you attend christianity or episcopalian services?: decline to answer Do you belong to any clubs or organized social groups?: no Panel score (0-1 are the most socially isolated patients): 2 What type of physical activity do you participate in: walking Duration: 15-30 minutes/day Frequency: 3-4 times per week Steff/Orthodoxy: Non latter day Special steff needs: No Agree to transfusion: Yes (when required or needed) Seatbelt use: always Helmet use: No (No longer needed) Drive intox or ride w/intox substitute bus driver: No Working smoke detector in home: Yes Carbon monox detector in home: Yes Firearms in home: Yes Firearms unloaded and locked: No Do you feel safe at home: Yes Do you feel safe in your relationship?: Yes Victim of physical abuse: No Victim of emotional abuse: No Victim of sexual abuse: No Would you like helpful sources: No
--- NOTE | 2024-08-26 16:00 | DI.CT_ITS ---
Exam(s) CT BRAIN NECK CTA EXAM: CT BRAIN NECK CTA CLINICAL HISTORY: lacunar infarct. TECHNIQUE: Imaging Protocol: Axial CT angiography was performed with multi-slice acquisition and mu lti-planar and MIP reconstructions. CONTRAST MATERIAL: Intravenous: Omnipaque 350 Contrast volume:70 ml COMPARISON: CT CT HEAD WO from 08/26/2024 MR MR BRAIN WO from 08/26/2024 FINDINGS: CT Head W/O and W contrast: Ventricles and Extra axial spaces: Normal in size and morphology for the patient's age. Hemorrhage: None. Cerebral parenchyma: No evidence of acute infarct or mass. Midline shift: None. Brainstem/Cerebellum: No acute findings.. Calvarium: Normal. Visualized Paranasal sinuses/Mastoids: Mild mucosal thickening of the ethmoid sinuses. Soft Tissues: Unremarkable. Enhancement: Normal. CTA Brain W: Internal Carotid Arteries: Petrous: Normal. Cavernous: Normal. Cerebral: Normal. Middle Cerebral Arteries: Right: No aneurysm, occlusion or significant stenosis. Left: No aneurysm, occlusion or significant stenosis. Anterior Cerebral Arteries: Right: No aneurysm, occlusion or significant stenosis. Left: No aneurysm, occlusion or significant stenosis. Posterior cerebral Arteries: Right: No aneurysm, occlusion or significant stenosis. Left: No aneurysm, occlusion or significant stenosis. Vertebral Arteries: Right: No aneurysm, occlusion or significant stenosis. Left: No aneurysm, occlusion or significant stenosis. Basilar Artery: No aneurysm, occlusion or significant stenosis. CTA Neck W: Common Carotid: Calcific plaque at both common carotid bulbs without significant stenosis. Right: No dissection, occlusion or significant stenosis. Left: No dissection, occlusion or significant stenosis. External Carotid: Right: No dissection, occlusion or significant stenosis. Left: No dissection, occlusion or significant stenosis. Internal Carotid: Right: No dissection, occlusion or significant stenosis. Left: No dissection, occlusion or significant stenosis. Vertebral Artery: Right: No dissection, occlusion or significant stenosis. Left: No dissection, occlusion or significant stenosis. Lung Apices: No acute findings. Bones: No acute abnormality. Degenerative changes of the cervical spine. Soft Tissues: Normal. IMPRESSION: 1. CTA brain: Normal CTA examination of the [place]. 2. Head CT: Tiny focus of low attenuation left basal ganglia again noted. Old lacunar infarct versus prominent perivascular space. 3. CTA neck: Calcification at both carotid common carotid bulbs without significant stenosis. RADIATION DOSE DELIVERED: Total DLP DATA REPOSITORY: All CT scans at this facility are submitted to the National Radiology Data Registry (NRDR) Dose Index Registry (DIR) with the [employer] (ACR). RADIATION OPTIMIZATION: All CT scans at this facility use at least one of these dose optimization te chniques: automated exposure control; mA and/or kV adjustment per patient size (includes targeted exa ms where dose is matched to clinical indication); or iterative reconstruction.
--- NOTE | 2024-08-26 16:03 | W.ED.FU ---
Follow Up Plan: Report received from MANA Kirkpatrick, daytime TOS[facility]. Please see her note for full HPI, ROS, PE, and diagnostics/lab evaluation. Ayad is an 83-year-old male who presented to the emergency department for weakness/dizziness; family also endorsed hallucinations. He was diagnosed with flu A, MRI was significant for old lacunar infarct. Discussed case with teleneurologist Dr Caballero and reviewed teleneuro report, no evidence of acute stroke, however he recommends CTA of head and neck, and echo in case this might be related to TIA ([facility] 3 days ago, pt outside of window for thrombolytics or mechanical thrombectomy), though undiagnosed neurodegenerative disease with superimposed flu is suspected. Recommends baby aspirin and Tamiflu. Pt does have appt with neurologist coming up. Discussed case with Dr. Lujan, hospitalist. Pt to be admitted for further evaluation.
[2024-08-26] MEDS: Oseltamivir 75 MG CAP PO ×2 (16:37→21:12)
[2024-08-26] MEDS: Aspirin 81 MG CHEW CH (16:37)
--- NOTE | 2024-08-26 16:43 | HPE_ITS ---
Date of service: 08/26/24 Time of Service: 16:43 Assessment and Plan Assessment and plan (1) Aortic valve stenosis: Status: Chronic Assessment and plan: Pt followed by Dr Schmidt. Recommend repeat echo in one year (2) Essential hypertension: Status: Chronic Assessment and plan: currentlyBP is 131/70. Will need optimization in the outpatient setting (3) Hyperlipidemia: Status: Chronic Assessment and plan: stable. CW statin (rosuvastatin 10mg daily) (4) Obstructive sleep apnea: Status: Chronic Assessment and plan: stable (5) Influenza A: Status: Acute Assessment and plan: c/w tamiflu (6) Weakness: Status: Acute Assessment and plan: PT to see and evaluate for placement. Multifactorial including flu/possible parkinsons/possible worsening dementia/other occult disease process. History of Present Illness History of Present Illness Chief Complaint: weakness Narrative: This is a 83-year-old gentleman who has known medical history of aortic stenosis with valve replacement with a bovine valve approximately 10 years [address] followed [address] Schmidt Presents to the ED with worsening weakness over the last 72 hours. While he was in the ED workup was done which was indicative of influenza A and the patient was started on Tamiflu. Patient's other workup included laboratory work which showed an elevated MCV thrombocytopenia with his platelet at 110 and elevated BUN to creatinine ratio of 19/1.0 as well as mild hyperglycemia. Brain MRI and CT of the head was also done which were essentially benign. Per report from son as well as his the patient was found down and was approximately down for 15 minutes this a.m. was brought into the ED for further evaluation and was noted to have significant problems ambulating. Patient was subsequently admitted to the hospitalist service for further evaluation and treatment including PT evaluation a.m. Per the family, the patient does have a appointment with Dr Cutler for evaluations of dementia as well as concerns for Parkinson's. This is supposed to be done next month. Review of Systems All systems reviewed & are unremarkable except as noted in HPI and below PFSH All Active Problems (Updated 08/26/24 @ 16:54 by Lupillo Lujan MD) Weakness (Acute) Influenza A (Acute) Neck pain (Acute) Balance problem (Acute) COVID-19 (Acute) Onset-02/04/22 Vaccinated (Moderna) Palpitations (Acute) Ulcerative colitis (Chronic 03/23/13) Found on colonoscopy biopsy by Dr Starks 01/28/11. Asymptomatic, not present on colonoscopy 2016 Overactive bladder (Chronic 03/30/15) Obstructive sleep apnea (Chronic 03/30/15) CPAP Malignant tumor of prostate (Chronic) S/P Prostatectomy 2007 radiation 2012 Idiopathic peripheral neuropathy (Chronic 01/27/17) Hyperlipidemia (Chronic) Essential hypertension (Chronic) Aortic valve stenosis (Chronic) Porcine valve replacement 2011 Medical History Recurrent kidney stones Solar keratosis Diverticulosis of colon without diverticulitis Kidney stone Surgical History Tonsillectomy and adenoidectomy Prostatectomy (~11/2006) lap. [place] VII Colonoscopy - MAC (06/04/16) Appendectomy Family History (Updated 08/17/24 @ 08:38 by Liliana Rangel) Mother , AGE 62 Breast cancer Father , AGE 74 Heart disease Brother , AGE 74 No problems noted. Brother Heart disease Maternal Grandfather , in 80s Prostate cancer Paternal Grandfather , in 70s No problems noted. Maternal Grandmother , in 70s Hypertension Paternal Grandmother , in 70s No problems noted. Brother , age 80 Heart disease Peripheral neuropathy Son No problems noted. Son No problems noted. Social History (Updated 08/17/24 @ 08:35 by Liliana Rangel) Smoking/Tobacco Use Status: Former Tobacco Use tobacco type: pipe and cigars Quit Date: 05/12/09 Pack-years: 50 Tobacco: How many years used: 10 Second Hand Exposure: Yes Smoking risk assessment performed?: Yes Alcohol Intake: current Alcohol Intake frequency: 0-2 drinks per day Alcohol type: beer, wine and hard liquor Details: 1oz about 4pm ea. day Drug use: Never Substance use type: does not use Adopted: No Caregiver/Support person: No Foster care: No Household members: spouse Housing: house Number of Children: 2 number of grandchildren: 3 Communication Needs: Hard of Hearing and Corrective Lenses Education Level: college Details: some Do you need help understanding health information?: Often current occupation: retired Pets and animals: Yes Pets and animals: dog(s) Sexually active: No Do you think of yourself as: straight/heterosexual Current gender identity: male What is your relationship status?: How often do you talk on the phone with friends or family?: three or more times per week How often do you get together with friends or relatives?: three or more times per week How often do you attend mormonism or congregational services?: decline to answer Do you belong to any clubs or organized social groups?: no Panel score (0-1 are the most socially isolated patients): 2 What type of physical activity do you participate in: walking Duration: 15-30 minutes/day Frequency: 3-4 times per week Steff/Amish: Non orthodox Special steff needs: No Agree to transfusion: Yes (when required or needed) Seatbelt use: always Helmet use: No (No longer needed) Drive intox or ride w/intox milk pickup driver: No Working smoke detector in home: Yes Carbon monox detector in home: Yes Firearms in home: Yes Firearms unloaded and locked: No Do you feel safe at home: Yes Do you feel safe in your relationship?: Yes Victim of physical abuse: No Victim of emotional abuse: No Victim of sexual abuse: No Would you like helpful sources: No Meds Allergies and Home Medications Allergies Allergy/AdvReac Type Severity Reaction Status Date / Time No Known Allergies Allergy Verified 08/26/24 09:56 Home Medications ?Medication ?Instructions ?Recorded ?Confirmed ?Type [facility] Tablet 1 ea PO DAILY 03/22/13 08/26/24 History flaxseed 1,000 mg capsule 1,000 mg PO DAILY 03/22/13 08/26/24 History [id number] C-Mn 750 1 ea PO DAILY 03/22/13 08/26/24 History mg-600 mg-55 mg-5 mg tablet ibuprofen 400 mg tablet 400 mg PO PRN 10/31/15 08/26/24 History amoxicillin 500 mg tablet 2 g PO ONCE #4 tab-caps 11/24/15 08/26/24 History coenzyme Q10 100 mg capsule (Co 100 mg PO DAILY 04/08/17 08/26/24 History Q-10) fluorouracil 5 % topical cream 1 applic topical DAILY #40 grams 06/16/23 08/26/24 Rx (Efudex) mecobalamin (vitamin B12) 1,000 1,000 mcg PO DAILY 06/16/23 08/26/24 History mcg lozenges metoprolol succinate 25 mg 25 mg PO DAILY #90 tabs 10/28/23 08/26/24 Rx tablet,extended release 24 hr oxybutynin chloride 5 mg tablet 5 mg PO BID PRN bladder spasms #20 08/16/24 08/26/24 Rx tabs rosuvastatin 10 mg tablet 10 mg PO DAILY #90 tabs 08/16/24 08/26/24 Rx tamsulosin 0.4 mg capsule 0.4 mg PO DAILY PRN Kidney stones 08/16/24 08/26/24 Rx #30 caps Exam Narrative Exam Narrative: HEENT: NCAT MMM EOMI PERRLA NECK: NO LAD NO JVD NO THYROIDMEGALY CV: RRR NO MRG PULM: CTAB NO AMU ABD:SNTNDBSA EXT: NO CCE NEURO: BILAT PASS POINTING CN 2-12 intact reflexes wnl, no cogwheeling UE bilat psych: aaox3 nad, can give linear history con: 83 y/o appears his stated age Results Labs 08/26/24 10:04 08/26/24 10:04 Labs: Laboratory Results - last 24 hr 08/26/24 08/26/24 08/26/24 10:04 10:20 11:07 WBC 6.04 RBC 4.75 Hgb 15.6 Hct 46.1 MCV 97 H MCH 32.8 MCHC 33.8 RDW 12.7 Plt Count 110 L MPV 10.1 Immature Gran % 0.7 Neutrophils % 60.2 Lymphocytes % 21.5 Monocytes % 14.9 Eosinophils % 2.0 Basophils % 0.7 Nucleated RBC % 0.0 Absolute Neutrophils 3.64 Absolute Lymphocytes 1.30 Absolute Monocytes 0.90 H Absolute Eosinophils 0.12 Absolute Basophils 0.04 Sodium 141 Potassium 4.1 Chloride 104 Carbon Dioxide 27.8 Anion Gap 9.2 BUN 19 H Creatinine 1.0 Est GFR (CKD-EPI 2020) 75.14 Glucose 115 H Calcium 9.4 Magnesium 2.0 Total Bilirubin 1.0 AST 41 H ALT 28 Alkaline Phosphatase 74 Troponin I 46 45 Total Protein 7.8 Albumin 4.1 Urine Color Urine Clarity Urine pH Ur Specific [place] Urine Protein Urine Ketones Urine Blood Urine Nitrite Urine Bilirubin Urine Urobilinogen Ur Leukocyte Esterase Urine RBC Urine WBC Ur Epithelial Cells Urine Crystals Urine Bacteria Urine Casts Urine Mucus Ur Culture Indicated? Urine Glucose COVID-19 Source Nasopharynx SARS-CoV-2 (PCR) Negative Influenza Type A (PCR) Positive A Influenza Type B (PCR) Negative RSV (PCR) Negative 08/26/24 08/26/24 11:34 12:59 WBC RBC Hgb Hct MCV MCH MCHC RDW Plt Count MPV Immature Gran % Neutrophils % Lymphocytes % Monocytes % Eosinophils % Basophils % Nucleated RBC % Absolute Neutrophils Absolute Lymphocytes Absolute Monocytes Absolute Eosinophils Absolute Basophils Sodium Potassium Chloride Carbon Dioxide Anion Gap BUN Creatinine Est GFR (CKD-EPI 2020) Glucose Calcium Magnesium Total Bilirubin AST ALT Alkaline Phosphatase Troponin I Cancelled Total Protein Albumin Urine Color Dark Yellow Urine Clarity Clear Urine pH 5.5 Ur Specific [place] >= 1.030 H Urine Protein 100 H Urine Ketones 40 H Urine Blood Negative Urine Nitrite Negative Urine Bilirubin Small H Urine Urobilinogen 1.0 H Ur Leukocyte Esterase Negative Urine RBC 0-2 Urine WBC Negative Ur Epithelial Cells Rare Urine Crystals Negative Urine Bacteria Negative Urine Casts 0-2 Hyaline Urine Mucus Negative Ur Culture Indicated? No Urine Glucose Negative COVID-19 Source SARS-CoV-2 (PCR) Influenza Type A (PCR) Influenza Type B (PCR) RSV (PCR) Last Vital Signs Temp 36.9 C 08/26/24 09:44 Pulse 76 08/26/24 16:16 Resp 19 08/26/24 16:16 BP 131/70 08/26/24 16:16 Pulse Ox 97 08/26/24 15:30 Time Spent Time spent with Patient: <40 minutes Time was spent: preparing to see the patient(eg.review tests), obtaining and/or reviewing separately otained hiistory, ordering medications,tests, procedures, referring, communicating with other health small animal caretaker, indepentently interpreting results, counseling the patient and care coordination
--- NOTE | 2024-08-26 17:14 | W.PC.ACHO ---
Registration Status: Primary Language: Preferred Language: ED Information & Data Chief Complaint Dizzy/Sync 08/26/24 15:06 Triage Note increased weakness and 08/26/24 09:44 dizziness. lowered self to floor this am and couldnt get back up. family has been sick, has a cough. Medical / Surgical History (Last Reviewed 08/05/24 @ 14:00 by Keira Schmidt MD) Recurrent kidney stones Solar keratosis Diverticulosis of colon without diverticulitis Kidney stone (Last Reviewed 08/05/24 @ 14:00 by Keira Schmidt MD) Tonsillectomy and adenoidectomy Prostatectomy (~11/2006) Colonoscopy - MAC (06/04/16) Appendectomy Most Recent Vital Signs Temperature 36.9 C 08/26/24 09:44 Pulse 76 08/26/24 16:16 Pulse 76 08/26/24 16:16 Respiratory Rate 19 08/26/24 16:16 Respiratory Effort Normal, Non-Labored 08/26/24 15:37 Respiratory Depth Normal 08/26/24 15:37 Respiratory Pattern Normal 08/26/24 15:37 Blood Pressure 131/70 08/26/24 16:16 Blood Pressure Mean 91 08/26/24 16:16 Pulse Oximetry 97 08/26/24 15:30 Oxygen Delivery Method Room Air 08/26/24 09:44 Oxygen Flow Rate 0 08/26/24 09:44 Pain Level 0 08/26/24 09:44 Allergies No Known Allergies Allergy (Verified 08/26/24 09:56) IV IV Catheter Type [Left Saline Lock Antecubital] IV Catheter Gauge [Left 20 Antecubital] Diet Orders Category Date Time Status Regular/Normal [DIET] Nutrition 08/26/24 Dinner Active Diagnostics 08/26/24 08/26/24 08/26/24 Range/Units 12:59 11:34 11:07 WBC (4.4-10.8) 10^3/uL RBC (4.36-5.78) 10^6/uL Hgb (13.5-17.5) g/dL Hct (40.0-50.0) % MCV (80-95) fL MCH (27.0-33.0) pg MCHC (32.0-36.0) % RDW (11.8-14.1) % Plt Count (130-400) 10^3/uL MPV (8.0-11.0) fL Immature Gran % % Neutrophils % % Lymphocytes % % Monocytes % % Eosinophils % % Basophils % % Nucleated RBC % (0.0-0.3) % Absolute Neutrophils (1.2-6.7) 10^3/uL Absolute Lymphocytes (1.2-3.4) 10^3/uL Absolute Monocytes (0.1-0.8) 10^3/uL Absolute Eosinophils (0.0-0.7) 10^3/uL Absolute Basophils (0.0-0.2) 10^3/uL Sodium (136-145) mmol/L Potassium (3.5-5.1) mmol/L Chloride (98-107) mmol/L Carbon Dioxide (21.0-32.0) mmol/L Anion Gap (3-11) mmol/L BUN (7-18) mg/dL Creatinine (0.70-1.30) mg/dL Est GFR (CKD-EPI 2020) (mL/min/1.73m2) Glucose (74-106) mg/dL Calcium (8.5-10.1) mg/dL Magnesium (1.8-2.4) mg/dL Total Bilirubin (0.2-1.0) mg/dL AST (15-37) U/L ALT (16-63) U/L Alkaline Phosphatase (46-116) U/L Troponin I Cancelled 45 (<or=76) ng/L Total Protein (6.4-8.2) g/dL Albumin (3.4-5.0) g/dL Urine Color Dark Yellow (Yellow) Urine Clarity Clear (Clear) Urine pH 5.5 (5-8) Ur Specific [place] >= 1.030 H (1.005-1.025) Urine Protein 100 H (Neg-Trace) mg/dL Urine Ketones 40 H (Negative) mg/dL Urine Blood Negative (Negative) Urine Nitrite Negative (Negative) Urine Bilirubin Small H (Negative) Urine Urobilinogen 1.0 H (Up to 0.2) mg/dL Ur Leukocyte Esterase Negative (Negative) Urine RBC 0-2 (0-2) HPF Urine WBC Negative (0-5) HPF Ur Epithelial Cells Rare (Negative) HPF Urine Crystals Negative (Negative) HPF Urine Bacteria Negative (Negative) HPF Urine Casts 0-2 Hyaline (Negative) LPF Urine Mucus Negative (Negative) Ur Culture Indicated? No Urine Glucose Negative (Negative) mg/dL COVID-19 Source SARS-CoV-2 (PCR) (Negative) Influenza Type A (PCR) (Negative) Influenza Type B (PCR) (Negative) RSV (PCR) (Negative) 08/26/24 08/26/24 Range/Units 10:20 10:04 WBC 6.04 (4.4-10.8) 10^3/uL RBC 4.75 (4.36-5.78) 10^6/uL Hgb 15.6 (13.5-17.5) g/dL Hct 46.1 (40.0-50.0) % MCV 97 H (80-95) fL MCH 32.8 (27.0-33.0) pg MCHC 33.8 (32.0-36.0) % RDW 12.7 (11.8-14.1) % Plt Count 110 L (130-400) 10^3/uL MPV 10.1 (8.0-11.0) fL Immature Gran % 0.7 % Neutrophils % 60.2 % Lymphocytes % 21.5 % Monocytes % 14.9 % Eosinophils % 2.0 % Basophils % 0.7 % Nucleated RBC % 0.0 (0.0-0.3) % Absolute Neutrophils 3.64 (1.2-6.7) 10^3/uL Absolute Lymphocytes 1.30 (1.2-3.4) 10^3/uL Absolute Monocytes 0.90 H (0.1-0.8) 10^3/uL Absolute Eosinophils 0.12 (0.0-0.7) 10^3/uL Absolute Basophils 0.04 (0.0-0.2) 10^3/uL Sodium 141 (136-145) mmol/L Potassium 4.1 (3.5-5.1) mmol/L Chloride 104 (98-107) mmol/L Carbon Dioxide 27.8 (21.0-32.0) mmol/L Anion Gap 9.2 (3-11) mmol/L BUN 19 H (7-18) mg/dL Creatinine 1.0 (0.70-1.30) mg/dL Est GFR (CKD-EPI 2020) 75.14 (mL/min/1.73m2) Glucose 115 H (74-106) mg/dL Calcium 9.4 (8.5-10.1) mg/dL Magnesium 2.0 (1.8-2.4) mg/dL Total Bilirubin 1.0 (0.2-1.0) mg/dL AST 41 H (15-37) U/L ALT 28 (16-63) U/L Alkaline Phosphatase 74 (46-116) U/L Troponin I 46 (<or=76) ng/L Total Protein 7.8 (6.4-8.2) g/dL Albumin 4.1 (3.4-5.0) g/dL Urine Color (Yellow) Urine Clarity (Clear) Urine pH (5-8) Ur Specific [place] (1.005-1.025) Urine Protein (Neg-Trace) mg/dL Urine Ketones (Negative) mg/dL Urine Blood (Negative) Urine Nitrite (Negative) Urine Bilirubin (Negative) Urine Urobilinogen (Up to 0.2) mg/dL Ur Leukocyte Esterase (Negative) Urine RBC (0-2) HPF Urine WBC (0-5) HPF Ur Epithelial Cells (Negative) HPF Urine Crystals (Negative) HPF Urine Bacteria (Negative) HPF Urine Casts (Negative) LPF Urine Mucus (Negative) Ur Culture Indicated? Urine Glucose (Negative) mg/dL COVID-19 Source Nasopharynx SARS-CoV-2 (PCR) Negative (Negative) Influenza Type A (PCR) Positive A (Negative) Influenza Type B (PCR) Negative (Negative) RSV (PCR) Negative (Negative) Intake and Output - 24 Hour Total 08/26/24 09:37 thru 08/26/24 16:46 Intake Total 1010 Balance 1010 Weight 86.183 kg Intake: IV 1010 Falls Risk Assessment History of Falls Admit Due to Fall 08/26/24 10:30 Contributing Factors Unstable,Impairments 08/26/24 10:30 Ambulatory Aids Uses ambulatory device + 08/26/24 10:30 Tubes/Lines With any additional score 08/26/24 10:30 Gait Evaluation W/any additional score 08/26/24 10:30 Cognition No cognitive impairment 08/26/24 10:30 Fall Total Score 101 08/26/24 10:30 Level of Risk Maximum Risk 08/26/24 10:30 Problems (Last Reviewed 08/05/24 @ 14:00 by Keira Schmidt MD) Weakness (Acute) Influenza A (Acute) Obstructive sleep apnea (Chronic 03/30/15) Hyperlipidemia (Chronic) Essential hypertension (Chronic) Aortic valve stenosis (Chronic) v v v v v v v v v Sending and/or Receiving Nurses: Please use comment section below to note any information pertinent to the patient hand-off not included above. Information / Comments: Report received from: raquel in ed
[2024-08-26] MEDS: Normal Saline - Diluent 50 ML VIAL IJ (18:20)
[2024-08-26] MEDS: Omnipaque 350 MG/ML 100 ML BTL IJ (18:20)
[2024-08-26] MEDS: Ibuprofen 400 MG TAB PO (21:12)
[2024-08-26] MEDS: Enoxaparin 40 MG/0.4 ML SYR SC (21:14)
[2024-08-26] MEDS: Normal Saline Flush 10 ML SYR (21:41)
[2024-08-26] MEDS: Melatonin 3 MG TAB PO (23:40)
--- NOTE | 2024-08-27 | DI.CT_ITS ---
Exam(s) CT PELVIC WO EXAM: CT PELVIC WO CLINICAL HISTORY: bilateral hip pain. TECHNIQUE: Imaging Protocol: Axial computed tomography images with coronal and sagittal reformatted images were created and reviewed. CONTRAST MATERIAL: Oral: / no COMPARISON: No exams were available for comparison FINDINGS: Bladder: Symmetric distention, no gross wall thickening. Contrast related to prior CT. Bowel: No obstruction or bowel wall thickening. Increased quantity of stool noted in the descending colon through rectum Peritoneal cavity: No ascites, collection or mesenteric inflammatory response. Reproductive: Unremarkable. Bones: No fracture. The hip joint spaces are maintained. There is mild acetabular spurring. SI douglas ints and pubic symphysis are unremarkable. There are degenerative disc changes at L4-5 and L5-S1. Soft tissues: Small bilateral fat containing inguinal hernias. Air bubbles in the anterior subcuta neous fat consistent with injection site . IMPRESSION: No acute abnormality. RADIATION DOSE DELIVERED: Total DLP DATA REPOSITORY: All CT scans at this facility are submitted to the National Radiology Data Registry (NRDR) Dose Index Registry (DIR) with the [employer] (ACR). RADIATION OPTIMIZATION: All CT scans at this facility use at least one of these dose optimization te chniques: automated exposure control; mA and/or kV adjustment per patient size (includes targeted exa ms where dose is matched to clinical indication); or iterative reconstruction.
[2024-08-27 07:02] LABS: Abs Immature Grans 0.02 10^3/uL (0.0-0.06); HCT 42.2 % (40.0-50.0); HGB 14.2 g/dL (13.5-17.5); MCH 32.8 pg (27.0-33.0); MCHC 33.6 % (32.0-36.0); MCV 98 fL (80-95); MPV 10.5 fL (8.0-11.0); Platelet Count 100 10^3/uL (130-400); RBC 4.33 10^6/uL (4.36-5.78); RDW 12.7 % (11.8-14.1); RDW-SD 45.8 fL; WBC 4.48 10^3/uL (4.4-10.8)
[2024-08-27 07:26] LABS: ALT 27 U/L (16-63); AST 33 U/L (15-37); Albumin 3.4 g/dL (3.4-5.0); Alkaline Phosphatase 65 U/L (46-116); Anion Gap 11.2 mmol/L (3-11); BUN 22 mg/dL (7-18); Bilirubin, Total 0.7 mg/dL (0.2-1.0); CO2 25.8 mmol/L (21.0-32.0); CREATININE 0.9 mg/dL (0.70-1.30); Calcium 8.9 mg/dL (8.5-10.1); Chloride 106 mmol/L (98-107); Creatine Kinase 499 U/L (39-308); Estimated GFR 85.27 (mL/min/1.73m2); Glucose 94 mg/dL (74-106); Potassium 3.3 mmol/L (3.5-5.1); Sodium 143 mmol/L (136-145); TSH (W/Ref FT4) 1.13 uIU/mL (0.36-3.74); Total Protein 6.5 g/dL (6.4-8.2)
[2024-08-27 07:35] LABS: Absolute Basophil Count 0.04 10^3/uL (0.0-0.2); Absolute Eosinophil Count 0.09 10^3/uL (0.0-0.7); Absolute Lymphocyte Count 1.88 10^3/uL (1.2-3.4); Absolute Monocyte Count 1.03 10^3/uL (0.1-0.8); Absolute Neutrophil Count 1.43 10^3/uL (1.2-6.7); Atypical Lymphocytes % 2 %; Diff Comment Manual Differential; RBC Morphology Normal
[2024-08-27 07:39] VITALS: BP 132/83; PULSE 80; RESP 15; TEMP 36.9; O2SAT 96
[2024-08-27 07:45] LABS: Vitamin B12 593 pg/mL (193-986)
[2024-08-27 07:50] LABS: Folate > 20.0 ng/mL (8.6-20.0)
[2024-08-27] MEDS: Metoprolol CR 25 MG TABCR PO (07:58)
[2024-08-27] MEDS: Rosuvastatin 10 MG TAB PO (07:58)
[2024-08-27] MEDS: Oseltamivir 75 MG CAP PO ×2 (07:58→20:03)
--- NOTE | 2024-08-27 10:57 | IN_ITS ---
PT Notes Visit Reasons: Weakness Physical Therapy Inpatient Initial Evaluation Date: 08/27/2024 Referring Doctor: Dr Lupillo Lujan PT Orders: PT CONSULT: PT Evaluation and treatment Precautions: Fall risk, FLU A Precautions Patient Profile/Admitting Diagnosis: Ayad is an 83 yo male presented to ED with 3 day increase in weakness and intermittent nocturnal hallucinations. 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 Neck CTA revealed B common Carotid significant stenosis. Pt (+) FLU A. Pt also noted to have urinary retention requiring straight catherization. Pt admitted for observation , monitoring and medical management. PMHX: Neck pain (Acute) Balance problem (Acute) COVID-19 (Acute) Onset-02/04/22 -Vaccinated (Moderna) Palpitations (Acute) Ulcerative colitis (Chronic 03/23/13) Found on colonoscopy biopsy by Dr Starks 01/28/11. Asymptomatic, not present on colonoscopy 2016 Overactive bladder (Chronic 03/30/15) Obstructive sleep apnea (Chronic 03/30/15) CPAP Malignant tumor of prostate (Chronic) S/P Prostatectomy 2006 radiation 2011 Idiopathic peripheral neuropathy (Chronic 01/27/17) Hyperlipidemia (Chronic) Essential hypertension (Chronic) Aortic valve stenosis (Chronic) Porcine valve replacement 2011 Medical History Recurrent kidney stones Solar keratosis Diverticulosis of colon without diverticulitis Kidney stone Surgical History Tonsillectomy and adenoidectomy Prostatectomy (~11/2006) lap. [place] VII Colonoscopy - MAC (06/04/16) Appendectomy Social History/Home Situation: Pt resides with his ( who also has the FLU) in a 2 story home with 2 steps with rail to enter. His bedroom and bath are on the first floor. He walks with a cane. His prepares meals and has been helping with his care over the past week. Pt reports he has a walk in shower with built in bench and hand held shower head. Equipment Owned/DME: cane Subjective: pt reports he has Prickly feeling at the ball of his feet. He reports his family has moved his office down to the first floor. He reports his son lives next door. He reports he does go upstairs occasionally but he does not have to. Son reports pt has a Neurology appointment in October 2024 d/t forgetfulness and nocturnal hallucinations. Objective: [] General Observation: male semireclined in bed. Son arrived during evaluation Mental Status: Alert and Ox4, cooperative, able to follow instructions. agreeable to participate in evaluation Pain: denies Vitals: monitored via telemetry throughout ROM: BUE: WFL Right Lower Extremity: WFL except DF neutral Left Lower Extremity:WFL except DF neutral Strength: [] Right Upper Extremity: grossly 4/5 Left Upper Extremity: grossly 4/5 Right Lower Extremity: Hip flexion: 3 /5; hip abduction: 3- /5; hip extension: 3- /5; knee extension: 3+ /5; knee flexion: 3- /5 ankle DF: 3 /5 ; ankle PF: 3 /5 Left Lower Extremity: Hip flexion: 3+/5; hip abduction: 3- /5; hip extension: 3- /5; knee extension: 3+ /5; knee flexion: 3- /5 ankle DF: 3/5 ; ankle PF: 3 /5 Sensation:intact coordination: Decreased speed with BOZENA, reduced accuracy RLE Bed Mobility/Transfers: [] Supine to sit mod A for trunk Sit to stand CGA and cues for hand placement unable to rise without use of BUE Stand to sit CGA and cues for hand placement requires use of BUE to lower to surface Bed to chair CGA with FWW Gait: amb 40 feet with FWW CGA x1 with chair follow reduced step length, reduced step height, narrow ABRAHAM, Balance: Static Sitting: Normal Dynamic Sitting: Fair + Static Standing: Fair + with UE support Dynamic Standing: Fair with UE support Special Tests: [] Mobility Limitations Standardized Measure [] [facility] AM-PAC 6 clicks Basic Mobility Inpatient Short Form: [] Raw Score: 16 CMS Score: 54.16% Informed Consent/Education: Patient instructed in purpose of PT consult. Assessment: Pt is 83 yo male presenting with urinary retention and Flu A. Patient presents with clinical signs and symptoms consistent with current/admitting diagnoses that have resulted to mobility limitations, gait instability, generalized weakness, and impairment of motor control as demonstrated by the following impairment level findings: 1. Decreased strength to BUE/ BLE major muscle groups 2. Impaired standing balance 3. impaired functional activity tolerance 4. impaired safety Impairments are contributing to the following functional limitations: 1. Inability to safely ambulate without assistive device 2. Increase completion time for mobility ADL performance 3. Increased fall risk 4. decline in bed mobility skills 5. decline in transfer skills 6. difficulty performing stairs safely Patient is assessed as a moderate complexity based on the following: History: 83-year-old male with impairment level findings, functional limitations, and past medical history as indicated above Examination: Demonstrable impairment in strength, balance, and mobility level with underlying impairments and functional limitations as documented above Presentation: evolving/ stable Decision Making: moderate Goals: 1. independent bed mobility 2. modified independent with FWW transfers 3. ambulate with FWW Modified independent 150 feet level surfaces including turns 4. Supervision 2 steps with rail to safely enter and exit home 5. supervision with [facility] BLE strengthening Plan of Care/Treatment Plan: 1-2x/day, 7 days/week x 1 week. Plan of care has been reviewed with the DELIVERY MERCHANDISER providing the service under Physical Therapy direction. Initiate Physical Therapy intervention for strengthening, bed mobility, transfers, gait, stairs, balance training, use of assistive device. DISCHARGE RECOMMENDATIONS: Home with FWW and HHPT TREATMENT CODE/TIME: 02075, [id number] Thank you for the opportunity to participate in the care of this patient. Savana Mann, PT [facility]
[2024-08-27] MEDS: Tamsulosin 0.4 MG CAPCR PO ×2 (11:08→20:04)
[2024-08-27 11:27] VITALS: BP 114/64; PULSE 70; RESP 14; TEMP 36.8; O2SAT 94
--- NOTE | 2024-08-27 13:29 | PGE_ITS ---
Date of Service Date of service: 08/27/24 Time of Service: 13:29 Assessment and Plan Assessment and plan (1) Aortic valve stenosis: Status: Chronic Assessment and plan: Pt followed by Dr Schmidt. Recommend repeat echo in one year (2) Essential hypertension: Status: Chronic Assessment and plan: currentlyBP is 131/70. Will need optimization in the outpatient setting (3) Hyperlipidemia: Status: Chronic Assessment and plan: stable. CW statin (rosuvastatin 10mg daily) (4) Obstructive sleep apnea: Status: Chronic Assessment and plan: stable (5) Influenza A: Status: Acute Assessment and plan: c/w tamiflu (6) Weakness: Status: Acute Assessment and plan: PT to see and evaluate for placement. Multifactorial including flu/possible parkinsons/possible worsening dementia/other occult disease process. (7) Hip pain, bilateral: Status: Acute Assessment and plan: Pt complains of bilateral hip pain. CT bilateral hip w/o contrast ordered Subjective Subjective Interval history since last seen: Pt seen and examined this afternoon. Pt does complain of bilateral hip pain but worse on the right. Pt denies any recent trauma. Exam Narrative Exam Narrative: HEENT: NCAT MMM EOMI PERRLA NECK: NO LAD NO JVD NO THYROIDMEGALY CV: RRR NO MRG PULM: CTAB NO AMU ABD:SNTNDBSA EXT: NO CCE NEURO: BILAT PASS POINTING CN 2-12 intact reflexes wnl, no cogwheeling UE bilat psych: aaox3 nad, can give linear history con: 83 y/o appears his stated age r hip- TTP in anterior aspect of right hip joint. Worse with frog leg position and abduction Objective Last Vital Signs Temp 36.8 C 08/27/24 11:27 Pulse 70 08/27/24 11:27 Resp 14 08/27/24 11:27 BP 114/64 08/27/24 11:27 Pulse Ox 94 08/27/24 11:27 Laboratory Results - last 24 hr 08/26/24 08/27/24 08/27/24 12:59 05:58 06:00 WBC 4.48 RBC 4.33 L Hgb 14.2 Hct 42.2 MCV 98 H MCH 32.8 MCHC 33.6 RDW 12.7 Plt Count 100 L MPV 10.5 Immature Gran % See Differential Neutrophils % 32.0 Lymphocytes % 40.0 Atypical Lymphs % 2 Monocytes % 23.0 Eosinophils % 2.0 Basophils % 1.0 Nucleated RBC % 0.0 Absolute Neutrophils 1.43 Absolute Lymphocytes 1.88 Absolute Monocytes 1.03 H Absolute Eosinophils 0.09 Absolute Basophils 0.04 RBC Morphology Normal Sodium 143 Potassium 3.3 L Chloride 106 Carbon Dioxide 25.8 Anion Gap 11.2 H BUN 22 H Creatinine 0.9 Est GFR (CKD-EPI 2020) 85.27 Glucose 94 Calcium 8.9 Total Bilirubin 0.7 AST 33 ALT 27 Alkaline Phosphatase 65 Creatine Kinase 499 H Troponin I Cancelled Total Protein 6.5 Albumin 3.4 Vitamin B12 593 Cancelled Folate > 20.0 H TSH 1.13 PAWSS Have you Been Recently Intoxicated or Drunk Within the Last 30 days?: No Have you Ever Experienced Previous Episodes of Alcohol Withdrawal?: No Have you ever Experienced Withdrawal Seizures?: No Have you ever Experienced Delirium Tremens(DT)s?: No Have you ever undergone Alcohol Rehabilitation Treatment (i.e, inpt ot outpatient treatment programs)?: No Have you ever Experienced Blackouts?: No Have you ever Combined Alcohol with other Downers within the last 90 days?: No Have you ever Combined Alcohol with any other Substance of Abuse during the last 90 days?: No Positive Blood Alcohol level on Presentation? [PCS.BAL]: No Evidence of Increased Autonomic Activity (i.e. HR>120, tremor, sweating, agitation, nausea)?: No Result: 0 Time Spent with Patient Time Spent with Patient: 25-34 minutes Time was spent: preparing to see the patient(eg.review tests), obtaining and/or reviewing separately otained hiistory, ordering medications,tests, procedures, referring, communicating with other health career professional, indepentently interpreting results, counseling the patient and care coordination
--- NOTE | 2024-08-27 15:34 | PCNE_ITS ---
Date of service: 08/27/24 Time of Service: 15:34 History of Present Illness Narrative: Marco Antonio was seen in his room at the hospital with his son, Mychal present. He is currently admitted for Influenza A with weakness and falls. He was seen for initial palliative visit to establish care. He lives at home with his , Lauren and their son, Mychal lives close to them. Mychal reports that their goal is to keep Marco Antonio and Lauren home. They are trying to age at home. Mychal is committed to helping them as much as he can. They are interested in community resources that might help with this. Reviewed what palliative can offer. They are interested in having palliative care visits at home. He has AD that were done with an supervising broker. He named his , Lauren to be HCA, then Hany then Ayad. He also listed his granddaughter and [id number] to help make decisions. Reviewed CODE status. He prefers to have Lauren present for this discussion. Mychal helped explain the meaning of CODE status. He took notes during the visit. He is hoping that Marco Antonio will get connected with HH upon discharge. Marco Antonio and Mychal agree that Lauren has been managing everything for them and she seems overwhelmed. Shonda also have a son, Ayad (Marco Antonio) that lives near [place], [place]. Marco Antonio does not really recall coming in to the ED. He is feeling fairly well. He thinks he is working with PT. His answers are vague. Assessment and Plan Assessment and plan (1) Influenza A: Status: Acute Assessment and plan: On tamiflu (2) Weakness: Status: Acute Assessment and plan: PT to see and evaluate for placement. Multifactorial including flu/possible parkinsons/possible worsening dementia/other occult disease process. (3) Aortic valve stenosis: Status: Chronic Assessment and plan: Pt followed by Dr Schmidt. Recommend repeat echo in one year (4) Essential hypertension: Status: Chronic Assessment and plan: currentlyBP is 131/70. Will need optimization in the outpatient setting (5) Hyperlipidemia: Status: Chronic Assessment and plan: stable. On Rosuvastatin 10mg daily (6) Obstructive sleep apnea: Status: Chronic Assessment and plan: stable (7) Hip pain, bilateral: Status: Acute Assessment and plan: Pt complains of bilateral hip pain. CT bilateral hip w/o contrast ordered (8) Palliative care encounter: Status: Acute Assessment and plan: Marco Antonio was seen in his room at the hospital with his son, Mychal present. He is currently admitted for Influenza A with weakness and falls. He was seen for initial palliative visit to establish care. He lives at home with his , Lauren and their son, Mychal lives close to them. The goal is to age at home. Mychal is committed to helping them as much as he can. They are interested in community resources that might help with this. They are interested in having palliative as part of the care team. He has AD. He named his , Lauren to be HCA, then Hany then Ayad. He also listed his granddaughter and [id number] to help make decisions. Reviewed CODE status. He prefers to have Lauren present for this discussion. Reviewed that he is a FULL CODE at present and he is okay with this. Mychal is hoping that Marco Antonio will get connected with HH upon discharge. Will ask the Palliative office to contact Marco Antonio and Lauren after discharge to set up a joint visit at home. They would benefit from discussing CODE status further and considering community resources that may be helpful to them. Review of Systems Narrative: Denies concerns, feeling better, Per HPI PFSH All Active Problems (Updated 08/27/24 @ 16:40 by Carmen Estrada NP) Palliative care encounter (Acute) Hip pain, bilateral (Acute) CVA (cerebral vascular accident) (Chronic) Weakness (Acute) Influenza A (Acute) Neck pain (Acute) Balance problem (Acute) COVID-19 (Acute) Onset-02/04/22 Vaccinated (Moderna) Palpitations (Acute) Ulcerative colitis (Chronic 03/23/13) Found on colonoscopy biopsy by Dr Starks 01/28/11. Asymptomatic, not present on colonoscopy 2016 Overactive bladder (Chronic 03/30/15) Obstructive sleep apnea (Chronic 03/30/15) CPAP Malignant tumor of prostate (Chronic) S/P Prostatectomy 2007 radiation 2012 Idiopathic peripheral neuropathy (Chronic 01/27/17) Hyperlipidemia (Chronic) Essential hypertension (Chronic) Aortic valve stenosis (Chronic) Porcine valve replacement 2011 Medical History Recurrent kidney stones Solar keratosis Diverticulosis of colon without diverticulitis Kidney stone Surgical History Tonsillectomy and adenoidectomy Prostatectomy (~11/2006) lap. Michelle VII Colonoscopy - MAC (06/04/16) Appendectomy Family History Mother , AGE 62 Breast cancer Father , AGE 74 Heart disease Brother , AGE 74 No problems noted. Brother Heart disease Maternal Grandfather , in 80s Prostate cancer Paternal Grandfather , in 70s No problems noted. Maternal Grandmother , in 70s Hypertension Paternal Grandmother , in 70s No problems noted. Brother , age 80 Heart disease Peripheral neuropathy Son No problems noted. Son No problems noted. Social History Smoking/Tobacco Use Status: Former Tobacco Use tobacco type: pipe and cigars Quit Date: 05/12/09 Pack-years: 50 Tobacco: How many years used: 10 Second Hand Exposure: Yes Smoking risk assessment performed?: Yes Alcohol Intake: current Alcohol Intake frequency: 0-2 drinks per day Alcohol type: beer, wine and hard liquor Details: 1oz about 4pm ea. day Drug use: Never Substance use type: does not use Adopted: No Caregiver/Support person: No Foster care: No Household members: spouse Housing: house Number of Children: 2 number of grandchildren: 3 Communication Needs: Hard of Hearing and Corrective Lenses Education Level: college Details: some Do you need help understanding health information?: Often current occupation: retired Pets and animals: Yes Pets and animals: dog(s) Sexually active: No Do you think of yourself as: straight/heterosexual Current gender identity: male What is your relationship status?: How often do you talk on the phone with friends or family?: three or more times per week How often do you get together with friends or relatives?: three or more times per week How often do you attend advent or scientologist services?: decline to answer Do you belong to any clubs or organized social groups?: no Panel score (0-1 are the most socially isolated patients): 2 What type of physical activity do you participate in: walking Duration: 15-30 minutes/day Frequency: 3-4 times per week Steff/Gnosticism: Non gnosticism Special steff needs: No Agree to transfusion: Yes (when required or needed) Seatbelt use: always Helmet use: No (No longer needed) Drive intox or ride w/intox regional intermodal truck driver: No Working smoke detector in home: Yes Carbon monox detector in home: Yes Firearms in home: Yes Firearms unloaded and locked: No Do you feel safe at home: Yes Do you feel safe in your relationship?: Yes Victim of physical abuse: No Victim of emotional abuse: No Victim of sexual abuse: No Would you like helpful sources: No Exam Narrative Exam Narrative: General: elderly man, lying in hospital bed with HOB elevated. He is awake and alert. He is oriented to person, place, situation. He answers questions appropriately. Answers are vague at times. HEENT: normocephalic, atraumatic, EOMI, mmm neck: supple Respiratory: respirations appear unlabored, no coughing during the visit, on room air. Ext: moves all 4 extremities freely. Results Last Vital Signs Temp 36.8 C 08/27/24 11:27 Pulse 70 08/27/24 11:27 Resp 14 08/27/24 11:27 BP 114/64 08/27/24 11:27 Pulse Ox 94 08/27/24 11:27 Labs 08/27/24 05:58 08/27/24 05:58 Labs: Laboratory Results - last 24 hr 08/27/24 08/27/24 05:58 06:00 WBC 4.48 RBC 4.33 L Hgb 14.2 Hct 42.2 MCV 98 H MCH 32.8 MCHC 33.6 RDW 12.7 Plt Count 100 L MPV 10.5 Immature Gran % See Differential Neutrophils % 32.0 Lymphocytes % 40.0 Atypical Lymphs % 2 Monocytes % 23.0 Eosinophils % 2.0 Basophils % 1.0 Nucleated RBC % 0.0 Absolute Neutrophils 1.43 Absolute Lymphocytes 1.88 Absolute Monocytes 1.03 H Absolute Eosinophils 0.09 Absolute Basophils 0.04 RBC Morphology Normal Sodium 143 Potassium 3.3 L Chloride 106 Carbon Dioxide 25.8 Anion Gap 11.2 H BUN 22 H Creatinine 0.9 Est GFR (CKD-EPI 2020) 85.27 Glucose 94 Calcium 8.9 Total Bilirubin 0.7 AST 33 ALT 27 Alkaline Phosphatase 65 Creatine Kinase 499 H Total Protein 6.5 Albumin 3.4 Vitamin B12 593 Cancelled Folate > 20.0 H TSH 1.13 Time Spent Time Spent with Patient Time Spent(min): 77
--- NOTE | 2024-08-27 15:40 | INITIAL_ITS ---
Date of service: 08/27/24 Time of Service: 15:40 Care Management Initial Assmt Initial Assessment Reason for Hospitalization: Influenza A with weakness Functional Status/Living Situation Patient Presentation: Marco Antonio is awake and lying in bed when CM met with him, his son Hany is present; both are polite and easy to engage in conversation. Marco Antonio has influenza A and is becoming increasingly weak. He was evaluated by PT during this admission and they recommend [facility] PT (when medically ready for discharge), pt is agreeable. Marco Antonio lives in [place] with his Lauren. He has 2 sons, Hany lives next door and Marco Antonio lives in [place]. Hany (and ) are supportive and would like help with medical terminologist planning, CM provided resources. They are not interested in LTM at this time. Patient may benefit from OUTSIDE PARTS SALESMAN and CCC at PCP office after discharge. Town of Residence: [place] Resides with: Spouse (Lauren) Significant Other/Family: Local (Son Hany) Natural Supports: and sons Employment Status: Retired ([employer] in [place]) Instrumental Activities of Daily Living (ADLs): Independent Medications Medication Management: No Issues/Barriers identified Physical Functioning/Mobility Assistive Device: Walker Advance Directives Advance Directives: Do you have an Advance Directive: Y 05/02/15 13:37 AD On File at [facility]: Y 03/19/13 09:17 Date Asked 08/26/24 08/26/24 09:50 AD Date Reviewed 08/26/24 08/26/24 09:48 COLST On File at [facility] COLST Date Scanned Code Status Resuscitation Status Full Code Insurance Coverage/Financial Issues Insurance: Medicare Part A & B - [id number] [facility] - [id number] Financial Issues: None identified Care Team Visit Care Team Role Provider Type Desire Fountain NP Primary Care Provider NURSE PRACTITIONER Nicole Hill Other Providers SEAFOOD AND SERVICE MEAT MANAGER Sadaf Ascencio Other Providers SEAFOOD AND SERVICE MEAT MANAGER Vikki Santos Other Providers SEAFOOD AND SERVICE MEAT MANAGER Margoth Mckeon Other Providers OTHER Latasha Shah RN Other Providers SEAFOOD AND SERVICE MEAT MANAGER Mary Lujan Other Providers SEAFOOD AND SERVICE MEAT MANAGER Aminta Rosario Emergency Provider NURSE PRACTITIONER Lupillo Lujan MD Admit Provider [facility] STAFF PHYSICIAN Attending Provider Discharge Potential Discharge Needs: Consult Consult Services Needed: Palliative and PCP F/U Appt Anticipated Barriers to Discharge: None Identified Patient/Family Education Needs: Review discharge instructions, discuss Ask Me Three Transportation: Private vehicle Plan: Anticipate, Marco Antonio will discharge home with [facility] RN, PT, OT and OUTSIDE PARTS SALESMAN. OUTSIDE PARTS SALESMAN would be beneficial to support long range planning needs. Marco Antonio will follow up with community providers and discharge plan of care as directed. Palliative will also follow after discharge. Social Determinants of Health Screening Social Determinants of health last assessed in clinic: 08/27/24 Will the Patient Participate in the Screening?: Yes Do you worry about having a steady place to live?: no Problems where you live: no known problems In the past 12 months, have you had to go without electric, gas, oil or water in your home?: no 1. Within the past 12 months, we worried whether our food would run out before we got money to buy more.: Never true 2. Within the past 12 months, the food we bought just didn't last and we didn't have money to get more.: Never true Has lack of transportation kept you from medical appointments or from doing things needed for daily living?: no Has anyone in your life made you feel unsafe or unsupported?: no How hard is it for you to pay for the very basics like food, housing, medical care, and heating? Would you say it is:: Not hard at all Do you want help finding or keeping work or a job?: I do not need or want help If for any reason you need help with day-to-day activities such as bathing, preparing meals, shopping, managing finances, etc., do you get the help you need?: I don?t need any help How often do you feel lonely or isolated from those around you?: Never Do you speak a language other than Paraguayan at home?: No PFSH All Active Problems (Updated 08/27/24 @ 13:36 by Lupillo Lujan MD) Hip pain, bilateral (Acute) CVA (cerebral vascular accident) (Chronic) Weakness (Acute) Influenza A (Acute) Neck pain (Acute) Balance problem (Acute) COVID-19 (Acute) Onset-02/04/22 Vaccinated (Moderna) Palpitations (Acute) Ulcerative colitis (Chronic 03/23/13) Found on colonoscopy biopsy by Dr Starks 01/28/11. Asymptomatic, not present on colonoscopy 2016 Overactive bladder (Chronic 03/30/15) Obstructive sleep apnea (Chronic 03/30/15) CPAP Malignant tumor of prostate (Chronic) S/P Prostatectomy 2007 radiation 2012 Idiopathic peripheral neuropathy (Chronic 01/27/17) Hyperlipidemia (Chronic) Essential hypertension (Chronic) Aortic valve stenosis (Chronic) Porcine valve replacement 2011 Medical History Recurrent kidney stones Solar keratosis Diverticulosis of colon without diverticulitis Kidney stone Surgical History Tonsillectomy and adenoidectomy Prostatectomy (~11/2006) lap. [place] VII Colonoscopy - MAC (06/04/16) Appendectomy Family History (Updated 08/17/24 @ 08:38 by Liliana Rangel) Mother , AGE 62 Breast cancer Father , AGE 74 Heart disease Brother , AGE 74 No problems noted. Brother Heart disease Maternal Grandfather , in 80s Prostate cancer Paternal Grandfather , in 70s No problems noted. Maternal Grandmother , in 70s Hypertension Paternal Grandmother , in 70s No problems noted. Brother , age 80 Heart disease Peripheral neuropathy Son No problems noted. Son No problems noted. Social History (Updated 08/17/24 @ 08:35 by Liliana Ranegl) Smoking/Tobacco Use Status: Former Tobacco Use tobacco type: pipe and cigars Quit Date: 05/12/09 Pack-years: 50 Tobacco: How many years used: 10 Second Hand Exposure: Yes Smoking risk assessment performed?: Yes Alcohol Intake: current Alcohol Intake frequency: 0-2 drinks per day Alcohol type: beer, wine and hard liquor Details: 1oz about 4pm ea. day Drug use: Never Substance use type: does not use Adopted: No Caregiver/Support person: No Foster care: No Household members: spouse Housing: house Number of Children: 2 number of grandchildren: 3 Communication Needs: Hard of Hearing and Corrective Lenses Education Level: college Details: some Do you need help understanding health information?: Often current occupation: retired Pets and animals: Yes Pets and animals: dog(s) Sexually active: No Do you think of yourself as: straight/heterosexual Current gender identity: male What is your relationship status?: How often do you talk on the phone with friends or family?: three or more times per week How often do you get together with friends or relatives?: three or more times per week How often do you attend caodaism or samaritan services?: decline to answer Do you belong to any clubs or organized social groups?: no Panel score (0-1 are the most socially isolated patients): 2 What type of physical activity do you participate in: walking Duration: 15-30 minutes/day Frequency: 3-4 times per week Steff/Church: Non adventism Special steff needs: No Agree to transfusion: Yes (when required or needed) Seatbelt use: always Helmet use: No (No longer needed) Drive intox or ride w/intox charter and tour bus driver: No Working smoke detector in home: Yes Carbon monox detector in home: Yes Firearms in home: Yes Firearms unloaded and locked: No Do you feel safe at home: Yes Do you feel safe in your relationship?: Yes Victim of physical abuse: No Victim of emotional abuse: No Victim of sexual abuse: No Would you like helpful sources: No
--- NOTE | 2024-08-27 17:24 | PT.INTREAT ---
PT Notes Visit Reasons: Weakness Date: 08/27/2024 PRECAUTIONS: Fall risk, FLU A Precautions SUBJECTIVE: Pt in bed visiting with son when approached for therapy this afternoon. pt agreed to participating with therapy session OBJECTIVE: ? PAIN: none reported VITALS: Closely monitored via telemetry? Therapeutic Activities 49189: Direct one-on-one instruction in dynamic activities to improve functional performance. ?? BED MOBILITY/TRANSFERS? Rolling L/R: independent Supine-sit: ? supervision? Sit-supine: ? supervision? Sit-stand: ? SBA ? Stand-sit: ?SBA? Bed-Chair:? SBA? Chair-bed: SBA Provided skilled cues and instruction on performance and technique throughout. Gait Training 42535: Direct one-on-one instruction and skilled instruction in: Employing an assistive device Modified weight-bearing status Movement sequencing Turning and movement with proper form Provided verbal cues for equipment management and technique Provided instruction in gait pattern Patient education regarding pacing and breathing techniques to maximize activity tolerance? GAIT? Assistive Device: ?? ?FWW ? Weight bearing: FWB Assist: ?SBA ? Distance:?? 120' inside pt room? Deviation: ? slow cherie, WBOS, stoop forward posture, low step height and short step length? STAIRS:? 6 step up/down L/R bilateral handrail using step stool? Therapeutic Exercises 83129: Direct one-on-one instruction in therapeutic exercises to develop strength, endurance, range of motion and flexibility. Exercises Sit to stand [id number] cues for hand placement and body positioning for safety and ease with transition Seated marching [id number] Seated Hip abd/add [id number] Seated SAQ [id number] Seated LAQ [id number] Seated hip external rotation [id number] Seated ankle dorsi/plantar flexion [id number] Provided skilled instruction in proper exercise performance Provided skilled manual cues to facilitate proper muscle recruitment and/or form: Neuromuscular Re-education 36725: Activities that facilitate re-education of movement balance, posture, coordination, and proprioception or kinesthetic sense, requiring skilled tactile and verbal cues Exercises/techniques: Static standing NBOS,WBOS, tandem, EC/ head turns?? ASSESSMENT:?pt tolerated activity well, pt showing carry over with safety during transfers from bed to recliner vice versa. pt was also able to go in and out of toilet to urinate/BM during session and was use for practice transfer training. PLAN: Continue with balance training, global strengthening and general conditioning for improved safety, mobility and activity tolerance until pt is ready for DC. TREATMENT CODE/TIME: [id number], [id number], 57860y1, 60635t0 60mins (1:30-2:30pm)
[2024-08-27] MEDS: Enoxaparin 40 MG/0.4 ML SYR SC (17:25)
[2024-08-27 19:30] VITALS: BP 146/72; PULSE 80; RESP 20; TEMP 37.1; O2SAT 96
[2024-08-27] MEDS: Melatonin 3 MG TAB PO (20:03)
[2024-08-27 23:15] VITALS: BP 146/89; PULSE 73; RESP 20; TEMP 37.2; O2SAT 97
[2024-08-28 03:00] VITALS: BP 116/77; PULSE 79; RESP 16; TEMP 36.8; O2SAT 95
[2024-08-28 06:49] LABS: Abs Immature Grans 0.02 10^3/uL (0.0-0.06); Absolute Basophil Count 0.03 10^3/uL (0.0-0.2); Absolute Eosinophil Count 0.08 10^3/uL (0.0-0.7); Absolute Lymphocyte Count 1.48 10^3/uL (1.2-3.4); Absolute Monocyte Count 0.51 10^3/uL (0.1-0.8); Absolute Neutrophil Count 2.36 10^3/uL (1.2-6.7); Basophils % 0.7 %; Eosinophils % 1.8 %; HCT 38.6 % (40.0-50.0); HGB 13.8 g/dL (13.5-17.5); Immature Grans % 0.4 %; MCH 33.8 pg (27.0-33.0); MCV 95 fL (80-95); MPV 10.5 fL (8.0-11.0); Monocytes % 11.4 %; Neutrophils % 52.7 %; Platelet Count 115 10^3/uL (130-400); RBC 4.08 10^6/uL (4.36-5.78); RDW 12.6 % (11.8-14.1); RDW-SD 43.8 fL; WBC 4.48 10^3/uL (4.4-10.8)
[2024-08-28 07:02] LABS: MCHC 35.8 % (32.0-36.0)
[2024-08-28 07:14] LABS: ALT 29 U/L (16-63); AST 32 U/L (15-37); Albumin 3.1 g/dL (3.4-5.0); Alkaline Phosphatase 65 U/L (46-116); Anion Gap 9.7 mmol/L (3-11); BUN 18 mg/dL (7-18); Bilirubin, Total 0.5 mg/dL (0.2-1.0); CO2 25.3 mmol/L (21.0-32.0); Calcium 8.7 mg/dL (8.5-10.1); Chloride 106 mmol/L (98-107); Estimated GFR 75.14 (mL/min/1.73m2); Glucose 105 mg/dL (74-106); Potassium 3.4 mmol/L (3.5-5.1); Sodium 141 mmol/L (136-145); Total Protein 6.3 g/dL (6.4-8.2)
[2024-08-28 07:21] VITALS: BP 137/82; PULSE 93; RESP 14; TEMP 36.7; O2SAT 93
[2024-08-28] MEDS: Oseltamivir 75 MG CAP PO (09:19)
[2024-08-28] MEDS: Tamsulosin 0.4 MG CAPCR PO (09:19)
[2024-08-28] MEDS: Metoprolol CR 25 MG TABCR PO (09:19)
--- NOTE | 2024-08-28 11:11 | PT.INTREAT ---
Date of service: 08/28/24 Time of Service: 10:40 PT Notes Visit Reasons: Weakness Inpatient Physical Therapy Treatment Note [facility] Date: August 28, 2024 PRECAUTIONS: Fall risk, FLU A Precautions SUBJECTIVE: Pt up in bedside chair at time of PT session. Pt agreed to participating with therapy session today and is in hopes of going home soon. OBJECTIVE: ? PAIN: none reported VITALS: Closely monitored via telemetry? Therapeutic Activities 42430: Direct one-on-one instruction in dynamic activities to improve functional performance. ?? BED MOBILITY/TRANSFERS? Rolling L/R: independent Supine-sit: ? supervision? Sit-supine: ? supervision? Sit-stand: ? SBA ? Stand-sit: ?SBA? Bed-Chair:? SBA?with FWW ? Chair-bed: SBA with FWW Provided skilled cues and instruction on performance and technique throughout. ? GAIT:? Assistive Device: ?? ?FWW ? Weight bearing: FWB Assist: ?SBA ? Distance:?? 120' inside pt room. Cueing to just push FWW vs lifting to turn.? Deviation: ? slow cherie, WBOS, stoop forward posture, low step height and short step length? Therapeutic Exercises 27911: Direct one-on-one instruction in therapeutic exercises to develop strength, endurance, range of motion and flexibility. Exercises Sit to stand [id number] cues for hand placement and body positioning for safety and ease with transition Seated marching [id number] Standing March with FWW 10x1 set Seated Hip abd/add [id number] Seated LAQ [id number] Standing Knee flexion (SSH) 10x1 set Seated hip external rotation [id number] Seated ankle dorsi/plantar flexion [id number] Standing HR [id number] Provided skilled instruction in proper exercise performance Provided skilled manual cues to facilitate proper muscle recruitment and/or form: ASSESSMENT:Tolerated activity well, showing carry over with safety during transfers from chair to toilet vice versa. Pt was also able to go in and out of toilet to urinate/BM during session and was use for practice transfer training. Able to stand safely to wipe as well as wash hands post toileting. PLAN: Continue with balance training, global strengthening and general conditioning for improved safety, mobility and activity tolerance until pt is ready for DC. TREATMENT CODE/TIME: 95541g6, 42819n1 30mins (10:40-11:10 am) ? ? ? DISCHARGE RECOMMENDATIONS: Home with FWW and HHPT ? Disclaimer: This note was created using [employer] voice recognition software. It was reviewed for major content. However, there may be multiple small discrepancies and errors due to the voice recognition aspects of the software.
--- NOTE | 2024-08-28 11:11 | W.PM.DS.N ---
Date of service: 08/28/24 Time of Service: 11:11 DS: Diagnosis Discharge Diagnosis (1) Influenza A: Status: Acute (2) Weakness: Status: Acute (3) Aortic valve stenosis: Status: Chronic (4) Essential hypertension: Status: Chronic (5) Hyperlipidemia: Status: Chronic (6) Obstructive sleep apnea: Status: Chronic (7) Hip pain, bilateral: Status: Acute (8) Palliative care encounter: Status: Acute Discharge Plan Disposition Patient Disposition: Home W/Home Health Services Condition: Stable Discharge Details Reason For Visit: Weakness Admit Date/Time: 08/26/24 16:36 Admit Provider: Lupillo Lujan Attending Provider: Lupillo Lujan [facility] Course: This is an 83 y/o male who was admitted on 08/26/24 with generalized weakness as well as Influenza a. Pt was started on tamiflu and a PT consult was placed. PT consult as below. PT did improve in regards to his symptoms and was anxious to be discharged on the . PT recommendations are for [facility] with PT. Will place consult. Of note, pt did have an elevation in his CK as well as weakness. I will plan to hold his statin and this can be resumed at the discretion of his PCP. This is a 83-year-old gentleman who has known medical history of aortic stenosis with valve replacement with a bovine valve approximately 10 years [address] followed by Dr. Schmidt Presents to the ED with worsening weakness over the last 72 hours. While he was in the ED workup was done which was indicative of influenza A and the patient was started on Tamiflu. Patient's other workup included laboratory work which showed an elevated MCV thrombocytopenia with his platelet at 110 and elevated BUN to creatinine ratio of 19/1.0 as well as mild hyperglycemia. Brain MRI and CT of the head was also done which were essentially benign. Per report from son as well as his the patient was found down and was approximately down for 15 minutes this a.m. was brought into the ED for further evaluation and was noted to have significant problems ambulating. Patient was subsequently admitted to the hospitalist service for further evaluation and treatment including PT evaluation a.m. Per the family, the patient does have a appointment with Dr Cutler for evaluations of dementia as well as concerns for Parkinson's. This is supposed to be done next month. PT Notes Visit Reasons: Weakness Physical Therapy Inpatient Initial Evaluation Date: 08/27/2024 Referring Doctor: Dr Lupillo Lujan PT Orders: PT CONSULT: PT Evaluation and treatment Precautions: Fall risk, FLU A Precautions Patient Profile/Admitting Diagnosis: Ayad is an 83 yo male presented to ED with 3 day increase in weakness and intermittent nocturnal hallucinations. 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 Neck CTA revealed B common Carotid significant stenosis. Pt (+) FLU A. Pt also noted to have urinary retention requiring straight catherization. Pt admitted for observation , monitoring and medical management. PMHX: Neck pain (Acute) Balance problem (Acute) COVID-19 (Acute) Onset-02/04/22 -Vaccinated (Moderna) Palpitations (Acute) Ulcerative colitis (Chronic 03/23/13) Found on colonoscopy biopsy by Dr Starks 01/28/11. Asymptomatic, not present on colonoscopy 2016 Overactive bladder (Chronic 03/30/15) Obstructive sleep apnea (Chronic 03/30/15) CPAP Malignant tumor of prostate (Chronic) S/P Prostatectomy 2006 radiation 2011 Idiopathic peripheral neuropathy (Chronic 01/27/17) Hyperlipidemia (Chronic) Essential hypertension (Chronic) Aortic valve stenosis (Chronic) Porcine valve replacement 2011 Medical History Recurrent kidney stones Solar keratosis Diverticulosis of colon without diverticulitis Kidney stone Surgical History Tonsillectomy and adenoidectomy Prostatectomy (~11/2006) lap. Atkins VII Colonoscopy - MAC (06/04/16) Appendectomy Social History/Home Situation: Pt resides with his ( who also has the FLU) in a 2 story home with 2 steps with rail to enter. His bedroom and bath are on the first floor. He walks with a cane. His prepares meals and has been helping with his care over the past week. Pt reports he has a walk in shower with built in bench and hand held shower head. Equipment Owned/DME: cane Subjective: pt reports he has Prickly feeling at the ball of his feet. He reports his family has moved his office down to the first floor. He reports his son lives next door. He reports he does go upstairs occasionally but he does not have to. Son reports pt has a Neurology appointment in October 2024 d/t forgetfulness and nocturnal hallucinations. Objective: [] General Observation: male semireclined in bed. Son arrived during evaluation Mental Status: Alert and Ox4, cooperative, able to follow instructions. agreeable to participate in evaluation Pain: denies Vitals: monitored via telemetry throughout ROM: BUE: WFL Right Lower Extremity: WFL except DF neutral Left Lower Extremity:WFL except DF neutral Strength: [] Right Upper Extremity: grossly 4/5 Left Upper Extremity: grossly 4/5 Right Lower Extremity: Hip flexion: 3 /5; hip abduction: 3- /5; hip extension: 3- /5; knee extension: 3+ /5; knee flexion: 3- /5 ankle DF: 3 /5 ; ankle PF: 3 /5 Left Lower Extremity: Hip flexion: 3+/5; hip abduction: 3- /5; hip extension: 3- /5; knee extension: 3+ /5; knee flexion: 3- /5 ankle DF: 3/5 ; ankle PF: 3 /5 Sensation:intact coordination: Decreased speed with BOZENA, reduced accuracy RLE Bed Mobility/Transfers: [] Supine to sit mod A for trunk Sit to stand CGA and cues for hand placement unable to rise without use of BUE Stand to sit CGA and cues for hand placement requires use of BUE to lower to surface Bed to chair CGA with FWW Gait: amb 40 feet with FWW CGA x1 with chair follow reduced step length, reduced step height, narrow ABRAHAM, Balance: Static Sitting: Normal Dynamic Sitting: Fair + Static Standing: Fair + with UE support Dynamic Standing: Fair with UE support Special Tests: [] Mobility Limitations Standardized Measure [] [facility] AM-PAC 6 clicks Basic Mobility Inpatient Short Form: [] Raw Score: 16 CMS Score: 54.16% Informed Consent/Education: Patient instructed in purpose of PT consult. Assessment: Pt is 83 yo male presenting with urinary retention and Flu A. Patient presents with clinical signs and symptoms consistent with current/admitting diagnoses that have resulted to mobility limitations, gait instability, generalized weakness, and impairment of motor control as demonstrated by the following impairment level findings: 1. Decreased strength to BUE/ BLE major muscle groups 2. Impaired standing balance 3. impaired functional activity tolerance 4. impaired safety Impairments are contributing to the following functional limitations: 1. Inability to safely ambulate without assistive device 2. Increase completion time for mobility ADL performance 3. Increased fall risk 4. decline in bed mobility skills 5. decline in transfer skills 6. difficulty performing stairs safely Patient is assessed as a moderate complexity based on the following: History: 83-year-old male with impairment level findings, functional limitations, and past medical history as indicated above Examination: Demonstrable impairment in strength, balance, and mobility level with underlying impairments and functional limitations as documented above Presentation: evolving/ stable Decision Making: moderate Goals: 1. independent bed mobility 2. modified independent with FWW transfers 3. ambulate with FWW Modified independent 150 feet level surfaces including turns 4. Supervision 2 steps with rail to safely enter and exit home 5. supervision with HEP BLE strengthening Plan of Care/Treatment Plan: 1-2x/day, 7 days/week x 1 week. Plan of care has been reviewed with the HOURLY SALES STAFF providing the service under Physical Therapy direction. Initiate Physical Therapy intervention for strengthening, bed mobility, transfers, gait, stairs, balance training, use of assistive device. DISCHARGE RECOMMENDATIONS: Home with FWW and HHPT TREATMENT CODE/TIME: 68442, [id number] Thank you for the opportunity to participate in the care of this patient. Savana Mann, PT Home Meds and New Rx's Prescriptions: New melatonin 3 mg Tablet 3 mg PO HS 30 Days Qty: 30 0RF Oseltamivir [Tamiflu] 75 mg PO BID 4 Days 0RF Continued oxybutynin chloride 5 mg tablet 5 mg PO BID PRN (Reason: bladder spasms) Qty: 20 4RF tamsulosin 0.4 mg capsule 0.4 mg PO DAILY PRN (Reason: Kidney stones) Qty: 30 2RF mecobalamin (vitamin B12) 1,000 mcg lozenge 1,000 mcg PO DAILY Rx Instructions: allow to dissolve in mouth OR may chew lightly before swallowing fluorouracil [Efudex] 5 % cream 1 applic TP DAILY Qty: 40 2RF Rx Instructions: apply sufficient amount to cover all lesions [id number] C-Mn 1 EACH tablet 1 ea PO DAILY flaxseed 1,000 MG capsule 1,000 mg PO DAILY [facility] TABLET 1 EACH tablet 1 ea PO DAILY ibuprofen 400 MG tablet 400 mg PO PRN amoxicillin 500 MG tablet 2 g PO ONCE Qty: 4 Rx Instructions: TAKE 4 TABS 1 HOUR BEFORE DENTAL PROCEDURES coenzyme Q10 [Co Q-10] 100 MG capsule 100 mg PO DAILY metoprolol succinate 25 mg tablet extended release 24 hr 25 mg PO DAILY Qty: 90 4RF Discontinued rosuvastatin 10 mg tablet 10 mg PO DAILY Qty: 90 3RF Discharge Instructions Referrals: Desire Fountain FILL TECHNICIAN [Primary Care Provider] - (Would recommend follow up with PCP in 5-7 days. Would also recommend follow up with Neurology [facility].) Activity:: Activity as Tolerated Equipment/Supplies:: No Equipment Needed Diet:: As Tolerated Discharge Orders Discharge Orders: Discharge Order (Routine); Ordered 08/28/24 Ordered By: Lupillo Lujan DS: Summary Time Spent with Patient providing and/or coordinating discharge services: Greater than 30 minutes Status at Discharge Functional status at discharge: independent ambulation Overall status at discharge: patient is progressing back to baseline Mental Status: mental status grossly normal Speech and Movement: speech and movement normal Mood: congruent mood Affect: normal affect Quality:SDOH Health Related Social Needs: No Data to Display Exam Psych Mental Status: mental status grossly normal Speech and Movement: speech and movement normal Mood: congruent mood Affect: normal affect DS: Data Vitals/I&O Vitals and I&O: Vital Signs Temperature 36.7 C 08/28/24 07:21 Temperature Source Temporal Artery Scan 08/28/24 07:21 Pulse 93 H 08/28/24 07:21 Pulse Rhythm Regular 08/26/24 18:19 Pulse 77 08/26/24 17:01 Respiratory Rate 14 08/28/24 07:21 Respiratory Effort Normal 08/26/24 18:19 Respiratory Depth Normal 08/26/24 18:19 Respiratory Pattern Normal 08/26/24 18:19 Blood Pressure 137/82 08/28/24 07:21 Blood Pressure Mean 96 08/26/24 17:01 Pulse Oximetry 93 08/28/24 07:21 Oxygen Delivery Method Room Air 08/28/24 07:21 Oxygen Flow Rate 0 08/28/24 07:21 Pain Level 0 08/26/24 22:30 Comment fresh dink provided, bed alarm on, trashes cleaned. 08/28/24 03:00 Intake & Output 08/27/24 08/27/24 08/28/24 11:59 23:59 11:59 Intake Total 510 / 510 220 / 220 Output Total 500 / 1500 1000 / 1500 50 / 50 Balance -500 / -990 -490 / -990 170 / 170 Weight 93 kg 93.04 kg Intake: IV 10 / 10 Oral 500 / 500 220 / 220 Output: Urine 250 / 900 650 / 900 50 / 50 Post Void Residual 250 / 600 350 / 600 Other: Urine Color Straw Straw Pale Urine Appearance Cloudy Clear Clear Urine Odor Foul None Normal Comment RN present - RN Bladder scanned pt [address] cath[address] no issues post residual Data Completed and Pending Labs on day of discharge: Labs from last 24 hours 08/28/24 06:00 WBC 4.48 RBC 4.08 L Hgb 13.8 Hct 38.6 L MCV 95 MCH 33.8 H MCHC 35.8 D RDW 12.6 Plt Count 115 L MPV 10.5 Immature Gran % 0.4 Neutrophils % 52.7 Lymphocytes % 33.0 Monocytes % 11.4 Eosinophils % 1.8 Basophils % 0.7 Nucleated RBC % 0.0 Absolute Neutrophils 2.36 Absolute Lymphocytes 1.48 Absolute Monocytes 0.51 Absolute Eosinophils 0.08 Absolute Basophils 0.03 Sodium 141 Potassium 3.4 L Chloride 106 Carbon Dioxide 25.3 Anion Gap 9.7 BUN 18 Creatinine 1.0 Est GFR (CKD-EPI 2020) 75.14 Glucose 105 Calcium 8.7 Total Bilirubin 0.5 AST 32 ALT 29 Alkaline Phosphatase 65 Total Protein 6.3 L Albumin 3.1 L PFSH All Active Problems (Updated 08/27/24 @ 16:40 by Carmen Estrada NP) Palliative care encounter (Acute) Hip pain, bilateral (Acute) CVA (cerebral vascular accident) (Chronic) Weakness (Acute) Influenza A (Acute) Neck pain (Acute) Balance problem (Acute) COVID-19 (Acute) Onset-02/04/22 Vaccinated (Moderna) Palpitations (Acute) Ulcerative colitis (Chronic 03/23/13) Found on colonoscopy biopsy by Dr Starks 01/28/11. Asymptomatic, not present on colonoscopy 2016 Overactive bladder (Chronic 03/30/15) Obstructive sleep apnea (Chronic 03/30/15) CPAP Malignant tumor of prostate (Chronic) S/P Prostatectomy 2007 radiation 2011 Idiopathic peripheral neuropathy (Chronic 01/27/17) Hyperlipidemia (Chronic) Essential hypertension (Chronic) Aortic valve stenosis (Chronic) Porcine valve replacement 2011 Medical History Recurrent kidney stones Solar keratosis Diverticulosis of colon without diverticulitis Kidney stone Surgical History Tonsillectomy and adenoidectomy Prostatectomy (~11/2006) lap. Michelle VII Colonoscopy - MAC (06/04/16) Appendectomy Family History Mother , AGE 62 Breast cancer Father , AGE 74 Heart disease Brother , AGE 74 No problems noted. Brother Heart disease Maternal Grandfather , in 80s Prostate cancer Paternal Grandfather , in 70s No problems noted. Maternal Grandmother , in 70s Hypertension Paternal Grandmother , in 70s No problems noted. Brother , age 80 Heart disease Peripheral neuropathy Son No problems noted. Son No problems noted. Social History Smoking/Tobacco Use Status: Former Tobacco Use tobacco type: pipe and cigars Quit Date: 05/12/09 Pack-years: 50 Tobacco: How many years used: 10 Second Hand Exposure: Yes Smoking risk assessment performed?: Yes Alcohol Intake: current Alcohol Intake frequency: 0-2 drinks per day Alcohol type: beer, wine and hard liquor Details: 1oz about 4pm ea. day Drug use: Never Substance use type: does not use Adopted: No Caregiver/Support person: No Foster care: No Household members: spouse Housing: house Number of Children: 2 number of grandchildren: 3 Communication Needs: Hard of Hearing and Corrective Lenses Education Level: college Details: some Do you need help understanding health information?: Often current occupation: retired Pets and animals: Yes Pets and animals: dog(s) Sexually active: No Do you think of yourself as: straight/heterosexual Current gender identity: male What is your relationship status?: How often do you talk on the phone with friends or family?: three or more times per week How often do you get together with friends or relatives?: three or more times per week How often do you attend mu-ism or islam services?: decline to answer Do you belong to any clubs or organized social groups?: no Panel score (0-1 are the most socially isolated patients): 2 What type of physical activity do you participate in: walking Duration: 15-30 minutes/day Frequency: 3-4 times per week Steff/Episcopal: Non adventist Special steff needs: No Agree to transfusion: Yes (when required or needed) Seatbelt use: always Helmet use: No (No longer needed) Drive intox or ride w/intox local company refrigerated truck driver: No Working smoke detector in home: Yes Carbon monox detector in home: Yes Firearms in home: Yes Firearms unloaded and locked: No Do you feel safe at home: Yes Do you feel safe in your relationship?: Yes Victim of physical abuse: No Victim of emotional abuse: No Victim of sexual abuse: No Would you like helpful sources: No Time Spent with Patient Time Spent with Patient: 45-69 minutes Time was spent: preparing to see the patient(eg.review tests), obtaining and/or reviewing separately otained hiistory, ordering medications,tests, procedures, referring, communicating with other health respiratory care technician, indepentently interpreting results, counseling the patient and care coordination
[2024-08-28 11:29] VITALS: O2SAT 95
--- NOTE | 2024-08-28 13:23 | PDOC.HHF2F_ITS ---
Home Health Referral Home Health Orders Clinical synopsis of why skilled professionals are needed: weakness/dementia/FTT Medical diagnosis necessitation home health referral: weakness/dementia/FTT Physical Therapist: Check all that apply Increase strength & endurance for safe mobility at home: Ordered To design/establish home maintenance program: Ordered Fall reduction therapy program for patient with history of frequent falls: Ordered Home safety evaluation and teaching/gait training including stair management (if applicable): Ordered Occupational Therapist: Evaluate and treat for patient unable to perform ADL/IADL/self-care: Ordered Upper extremity strengthening, range and motion: Ordered [employer]: Assist with community resources: Ordered Assist with senior living care planning: Ordered Home Bound Status Assistance of another person (Describe assistance and medical necessity): per Physical therapy evaluation Patient has a condition such that leaving home is medically contraindicated (Describe): dementia Describe why leaving home would require a considerable and taxing effort: Confusion Encounter Date and Reason: I certify that a FTF encounter for this patient was performed on August 28, 2024 and that such encounter was related to the primary reason the patient requires home health services. The encounter was conducted in the following manner: * By me as the certifying physician, SEALING AND CANCELING MACHINE OPERATOR, PA or * By an inpatient physician, SEALING AND CANCELING MACHINE OPERATOR or PA during an inpatient stay who communicated findings to me, Certification And Authentication I certify that I composed the above information based on my clinical judgment relating to this patient's medical condition and, if applicable, clinical findings communicated to me by the NPP or inpatient physician who performed the FTF encounter. Name of Provider that will be monitoring home health services: Desire Fountain
--- NOTE | 2024-08-28 14:21 | CMDISCH_ITS ---
Date of service: 08/28/24 Time of Service: 14:21 LACE Index Scoring Tool Questions: Length of Stay (in days): 2 Was the patient admitted via the E.D.?: Yes Comorbidities: Cerebrovascular Disease, Chronic Pulmonary Disease and Any Tumor E.D. Visits: 1 Answers: Total Score: 11 Risk of Readmission: High Risk Care Management Discharge Plan Reason for Hospitalization: weakness and Influenza Discharge Plan: Marco Antonio will be discharged home with new home health orders for PT, OT and AIRPLANE AND ENGINE INSPECTOR. Patient/Family Education Needs: Review discharge instructions, limitations, follow up plan, discuss Ask Me Three Services Needed at Discharge: Home Health Care Services SDOH Health Related Social Needs: No Data to Display
== END 2024-08-28 14:03 | disposition home health service (06) ==
LOC: ER 16:46 → MS 17:18
PROVIDERS: Physician Assistant; Admitting Provider Hospitalist; Emergency Provider Nurse Practitioner Family; PCP Nurse Practitioner Family; Responsible Provider Hospitalist; Visit Provider Hospitalist
DX: J10.1 Influenza due to other identified influenza virus with other respiratory manifestations (principal); I10 Essential (primary) hypertension; E78.5 Hyperlipidemia, unspecified; G47.33 Obstructive sleep apnea (adult) (pediatric); R53.1 Weakness; M25.551 Pain in right hip; M25.552 Pain in left hip; Z95.3 Presence of xenogenic heart valve; D69.6 Thrombocytopenia, unspecified; R73.9 Hyperglycemia, unspecified; R26.2 Difficulty in walking, not elsewhere classified; M54.2 Cervicalgia; N32.81 Overactive bladder
CPT/HCPCS: 00123; 36415; 70496; 70498; 80053; 82550; 87637; 93005; 96360; 96372; 97110; 97112; 97116; 97162; 97530; 99285; J1650; 70450; 70551; 72192; 81003; 81015; 82607; 82746; 83735; 84443; 84484; 85025; 93010; 99222; 99232; 99239; G0378; J3490

== ENCOUNTER → 2024-10-12 13:42 | Outpatient (BNVA) | payer MEDICARE, SELFPAY | PROVIDERS: PCP Nurse Practitioner Family; Referring Provider Nurse Practitioner Family; Visit Provider Psychiatry & Neurology Neurology | DX: R41.89 Other symptoms and signs involving cognitive functions and awareness (principal); Z13.858 Encounter for screening for other nervous system disorders | CPT/HCPCS: 99215; G2212 ==

== ENCOUNTER → 2024-10-14 10:31 | Outpatient (BNVA) | payer MEDICARE, SELFPAY | PROVIDERS: PCP Nurse Practitioner Family; Referring Provider Nurse Practitioner Family; Visit Provider Nurse Practitioner Adult Health | DX: Z13.858 Encounter for screening for other nervous system disorders (principal); R41.89 Other symptoms and signs involving cognitive functions and awareness | CPT/HCPCS: 99214 ==

== ENCOUNTER 2024-10-19 02:29 | Outpatient (CLI) | payer MEDICARE, SELFPAY ==
[2024-10-19 09:00] LABS: ALT 47 U/L (16-63); AST 22 U/L (15-37); Alkaline Phosphatase 82 U/L (46-116); Anion Gap 8.3 mmol/L (3-11); BUN 24 mg/dL (7-18); Bilirubin, Total 0.8 mg/dL (0.2-1.0); CO2 29.7 mmol/L (21.0-32.0); CREATININE 0.9 mg/dL (0.70-1.30); Calcium 9.6 mg/dL (8.5-10.1); Chloride 106 mmol/L (98-107); Estimated GFR 85.27 (mL/min/1.73m2); Glucose 78 mg/dL (74-106); Potassium 3.9 mmol/L (3.5-5.1); Sodium 144 mmol/L (136-145); Total Protein 7.6 g/dL (6.4-8.2)
[2024-10-22 12:47] LABS: PSA, Ultrasensitive 0.85 ng/mL (<= 7.2)
[2024-10-24 16:56] LABS: Testosterone, Total 566 ng/dL (240-950)
== END 2024-10-19 02:30 | disposition home or self-care (01) ==
LOC: LBO 02:29
PROVIDERS: PCP Nurse Practitioner Family; Visit Provider Internal Medicine
DX: C61 Malignant neoplasm of prostate (principal)
CPT/HCPCS: 36415; 80053; 84153; 84403

== ENCOUNTER → 2025-01-24 11:04 | Outpatient (BNVA) | payer MEDICARE, SELFPAY | PROVIDERS: PCP Nurse Practitioner Family; Referring Provider Nurse Practitioner Family; Visit Provider Psychiatry & Neurology Neurology | DX: R26.89 Other abnormalities of gait and mobility (principal); G60.9 Hereditary and idiopathic neuropathy, unspecified; R41.3 Other amnesia; R44.3 Hallucinations, unspecified; F03.90 Unspecified dementia, unspecified severity, without behavioral disturbance, psychotic disturbance, mood disturbance, and anxiety; I10 Essential (primary) hypertension | CPT/HCPCS: 99214 ==

== ENCOUNTER 2025-01-25 10:12 | Emergency (ER) | payer MEDICARE, SELFPAY ==
[2025-01-25 10:14] VITALS: BP 113/75; PULSE 86; RESP 16; TEMP 36.9; O2SAT 96
[2025-01-25 10:17] VITALS: BP 113/75; PULSE 86; RESP 16; TEMP 36.9; O2SAT 96
--- NOTE | 2025-01-25 10:43 | W.ED.GENAD ---
Discharge Plan Disposition Patient Disposition: Home Condition: Stable Discharge Details Clinical Impression: Subconjunctival hemorrhage Primary Care Provider: Desire Fountain ED Provider: Miki Witt Home Meds and New Rx's Prescriptions: New erythromycin 5 mg/gram (0.5 %) ointment 0.5 inch ophthalmic (eye) QID 5 Days Qty: 3.5 0RF Continued oxybutynin chloride 5 mg tablet 5 mg PO BID PRN (Reason: bladder spasms) Qty: 20 4RF tamsulosin 0.4 mg capsule 0.4 mg PO DAILY PRN (Reason: Kidney stones) Qty: 30 2RF mecobalamin (vitamin B12) 1,000 mcg lozenge 1,000 mcg PO DAILY Rx Instructions: allow to dissolve in mouth OR may chew lightly before swallowing fluorouracil [Efudex] 5 % cream 1 applic TP DAILY Qty: 40 2RF Rx Instructions: apply sufficient amount to cover all lesions quetiapine 25 mg tablet See Rx Instructions PO .COMPLEX Qty: 135 3RF Rx Instructions: orally; Take 25mg HS one hour prior to bedtime. Can take an extra 12.5mg once daily prn in the day for hallucinations/irritation. memantine [Namenda] 5 mg tablet 5 mg PO BID Qty: 60 5RF [id number] C-Mn 1 EACH tablet 1 ea PO DAILY flaxseed 1,000 MG capsule 1,000 mg PO DAILY [facility] TABLET 1 EACH tablet 1 ea PO DAILY ibuprofen 400 MG tablet 400 mg PO PRN amoxicillin 500 MG tablet 2 g PO ONCE Qty: 4 Rx Instructions: TAKE 4 TABS 1 HOUR BEFORE DENTAL PROCEDURES coenzyme Q10 [Co Q-10] 100 MG capsule 100 mg PO DAILY Discharge Instructions Instructions: Erythromycin (Topical), Subconjunctival hemorrhage Additional Instructions: You received in the emergency department for your subconjunctival hemorrhage of the right eye, prescribing erythromycin ophthalmic ointment and any infection from possibly getting a corneal abrasion while roughhousing with your dog, you should see some settling of the bruising to your lower eyelid, please return to the emergency department for any emergent concerns Referrals: Desire Fountain NP [Primary Care Provider, Medicine] Discharge Data Discharge Date/Time-TO BE ENTERED AT DEPARTURE: 01/25/25 11:17 HPI General Date/Time Provider Initiated Documentation: 01/25/25 10:21. HPI Narrative: 84 year-old male presents to ED today by POV/ambulating with his with a chief complaint of injury to R eye while playing with his dog, was struck in the eye, not by claw or teeth, was fine but then woke up with a completely reddened eye, dark red around the iris. Quality described as not painful, no radiation to visual changes, vision loss, itching, foreign body sensation, endorses mild bruising settling to R lateral lower eyelid. Severity is described as 0/10. Palliating factors include nothing specific attempted. Provoking factors include nothing specific. Patient not anticoagulated. Related Data Home Medications ?Medication ?Instructions ?Recorded ?Confirmed [facility] Tablet 1 ea PO DAILY 03/22/13 01/25/25 flaxseed 1,000 mg capsule 1,000 mg PO DAILY 03/22/13 01/25/25 [id number] C-Mn 750 1 ea PO DAILY 03/22/13 01/25/25 mg-600 mg-55 mg-5 mg tablet ibuprofen 400 mg tablet 400 mg PO PRN 10/31/15 01/24/25 amoxicillin 500 mg tablet 2 g PO ONCE #4 tab-caps 11/24/15 01/25/25 coenzyme Q10 100 mg capsule (Co 100 mg PO DAILY 04/08/17 01/25/25 Q-10) fluorouracil 5 % topical cream 1 applic topical DAILY #40 grams 06/16/23 01/25/25 (Efudex) mecobalamin (vitamin B12) 1,000 1,000 mcg PO DAILY 06/16/23 01/25/25 mcg lozenges oxybutynin chloride 5 mg tablet 5 mg PO BID PRN bladder spasms #20 08/16/24 01/25/25 tabs tamsulosin 0.4 mg capsule 0.4 mg PO DAILY PRN Kidney stones 08/16/24 01/25/25 #30 caps memantine 5 mg tablet (Namenda) 5 mg PO BID #60 tabs 01/24/25 01/25/25 quetiapine 25 mg tablet See Rx Instructions PO .COMPLEX 01/24/25 01/25/25 #135 tabs erythromycin 5 mg/gram (0.5 %) eye 0.5 inch ophthalmic (eye) QID 5 01/25/25 ointment days #3.5 grams Previous Rx's ?Medication ?Instructions ?Recorded fluorouracil 5 % topical cream 1 applic topical DAILY #40 grams 06/16/23 (Efudex) oxybutynin chloride 5 mg tablet 5 mg PO BID PRN bladder spasms #20 08/16/24 tabs tamsulosin 0.4 mg capsule 0.4 mg PO DAILY PRN Kidney stones 08/16/24 #30 caps memantine 5 mg tablet (Namenda) 5 mg PO BID #60 tabs 01/24/25 quetiapine 25 mg tablet See Rx Instructions PO .COMPLEX 01/24/25 #135 tabs erythromycin 5 mg/gram (0.5 %) eye 0.5 inch ophthalmic (eye) QID 5 01/25/25 ointment days #3.5 grams Allergies Allergy/AdvReac Type Severity Reaction Status Date / Time No Known Allergies Allergy Verified 01/25/25 10:19 General Stated Complaint: EyeProblem JORJE: 4 Review of Systems All systems reviewed & are unremarkable except as noted in HPI and below Exam Narrative Exam Narrative: GENERAL APPEARANCE: Well-nourished, non-toxic, awake and alert, atraumatic, no acute distress. SKIN: Warm, pink, dry, intact, without rashes/lesions/ulcerations. HEAD: Normocephalic, atraumatic, normal hair distribution for gender/age. EYES: No exudates on lids/lashes, R eye subconjunctival hemorrhage, no visual changes, EOMs intact, mild ecchymosis R lateral lower eyelid, no pain with EOM movement, no foreign body sensation, orbits stable ENT: Nares patent, no circumoral cyanosis, no facial swelling NECK: Supple, trachea midline, painless cervical ROM. LUNGS/CHEST: Non-labored respirations, normal A/P diameter, symmetrical expansion, no chest wall deformity HEART (CV/PV): No peripheral edema, no JVD. ABDOMEN: Soft, non-distended, no guarding. MSK: Normal ROM, no swelling/deformity to bilateral UEs or LEs, moving all extremities without weakness, no cyanosis, spine midline without tenderness, normal curvature. NEURO: Mental Status AAOx4 - alert to person, place, time, events No facial droop, no forehead involvement. Motor: No focal weakness - strength 5/5 in bilateral UEs and LEs, proximal and distal, symmetric. Sensory: sensation intact to light touch globally. Gait normal: patient ambulated without ataxia into ED room. PSYCH: euthymic, cooperative, pleasant, appropriate speech Course Vital Signs Vital signs: Vital Signs Temperature 36.9 C 01/25/25 10:14 Pulse 86 01/25/25 10:14 Respiratory Rate 16 01/25/25 10:14 Blood Pressure 113/75 01/25/25 10:14 Pulse Oximetry 96 01/25/25 10:14 Temperature 36.9 C 01/25/25 10:17 Pulse 86 01/25/25 10:17 Respiratory Rate 16 01/25/25 10:17 Blood Pressure 113/75 01/25/25 10:17 Pulse Oximetry 96 01/25/25 10:17 Pain Level 0 01/25/25 10:17 Medical Decision Making This dictation utilizes [id number] dictation software and may contain unedited grammatical errors. 84 year-old male presents to ED today by POV/ambulating with his with a chief complaint of injury to R eye while playing with his dog, was struck in the eye, not by claw or teeth, was fine but then woke up with a completely reddened eye, dark red around the iris. Quality described as not painful, no radiation to visual changes, vision loss, itching, foreign body sensation, endorses mild bruising settling to R lateral lower eyelid. Severity is described as 0/10. Palliating factors include nothing specific attempted. Provoking factors include nothing specific. Patients' medical history: dementia, peripheral neuropathy, aortic stenosis, balance problems, history CVA. Family and social history: noncontributory. Pertinent exam findings / vital signs include R eye subconjunctival hemorrhage, no visual changes, EOMs intact, mild ecchymosis R lateral lower eyelid, no pain with EOM movement, no foreign body sensation, orbits stable. Differential / pathologies of concern include subconjunctival hemorrhage, corneal abrasion. Diagnostic studies of: -None. Interventions of: -Rx for erythromycin ointment to prevent infection. ED Course/Assessment/Plan: 84-year-old male was playing with his dog who was somewhat rambunctious yesterday when he got bumped in the right eye, had some mild bruising to right lateral lower eyelid as well as subconjunctival hemorrhage without irritation, vision and EOMs intact, patient has no pain, I plan to prophylax him with erythromycin ointment and have him follow-up with his primary care provider or coil tester should the subconjunctival hemorrhage not improve, strict return to emergency facility for any loss of vision, worsening irritation to the eye, pain with eye movement. Findings not consistent with corneal ulceration, globe rupture, vision changes, infection, orbital fracture. Disposition of subconjunctival hemorrhage. Patient verbalized understanding of the plan and return to ED criteria and engaged in shared decision making. Medical Records Medical records reviewed: Yes I reviewed the patient's medical records. [facility] All Active Problems (Updated 01/25/25 @ 10:46 by MANA Gan) Subconjunctival hemorrhage (Acute) Dementia (Chronic) Advanced care planning/counseling discussion (Acute) Hallucination, visual (Acute) Frequent falls (Acute) Dementia with behavioral disturbance (Acute) Cognitive changes (Acute) Squamous cell carcinoma in situ (Acute) Mohs surgery to scalp and forearm in 2003. Following with Dermatology Dr. Vanessa Hip pain, bilateral (Acute) CVA (cerebral vascular accident) (Chronic) Influenza A (Acute) Neck pain (Acute) Balance problem (Acute) COVID-19 (Acute) Onset-02/04/22 Vaccinated (Moderna) Palpitations (Acute) Ulcerative colitis (Chronic 03/23/13) Found on colonoscopy biopsy by Dr Starks 01/28/11. Asymptomatic, not present on colonoscopy 2016 Overactive bladder (Chronic 03/30/15) Obstructive sleep apnea (Chronic 03/30/15) CPAP Malignant tumor of prostate (Chronic) S/P Prostatectomy 2006 radiation 2012 Idiopathic peripheral neuropathy (Chronic 01/27/17) Essential hypertension (Chronic) Aortic valve stenosis (Chronic) Porcine valve replacement 2011 Medical History History of basal cell carcinoma 08/2022: Right upper forearm. Palliative care encounter Recurrent kidney stones Solar keratosis Diverticulosis of colon without diverticulitis Kidney stone Surgical History Tonsillectomy and adenoidectomy Prostatectomy (~11/2006) lap. Idalia VII Colonoscopy - MAC (06/04/16) Appendectomy Family History Mother , AGE 62 Breast cancer Father , AGE 74 Heart disease Brother , AGE 74 No problems noted. Brother Heart disease Maternal Grandfather , in 80s Prostate cancer Paternal Grandfather , in 70s No problems noted. Maternal Grandmother , in 70s Hypertension Paternal Grandmother , in 70s No problems noted. Brother , age 80 Heart disease Peripheral neuropathy Son No problems noted. Son No problems noted. Social History Smoking/Tobacco Use Status: Former Tobacco Use tobacco type: pipe and cigars Quit Date: 05/12/09 Pack-years: 50 Tobacco: How many years used: 10 Second Hand Exposure: Yes Smoking risk assessment performed?: Yes Alcohol Intake: current Alcohol Intake frequency: 0-2 drinks per day Alcohol type: beer, wine and hard liquor Details: 1oz about 4pm ea. day Drug use: Never Substance use type: does not use Adopted: No Caregiver/Support person: No Foster care: No Household members: spouse Housing: house Number of Children: 2 number of grandchildren: 3 Communication Needs: Hard of Hearing and Corrective Lenses Education Level: college Details: some Do you need help understanding health information?: Often current occupation: retired Pets and animals: Yes Pets and animals: dog(s) Sexually active: No Do you think of yourself as: straight/heterosexual Current gender identity: male What is your relationship status?: How often do you talk on the phone with friends or family?: three or more times per week How often do you get together with friends or relatives?: three or more times per week How often do you attend sabianism or mu-ism services?: decline to answer Do you belong to any clubs or organized social groups?: no Panel score (0-1 are the most socially isolated patients): 2 What type of physical activity do you participate in: walking Duration: 15-30 minutes/day Frequency: 3-4 times per week Steff/Jehovah'S Witness: Non advent Special steff needs: No Agree to transfusion: Yes (when required or needed) Seatbelt use: always Helmet use: No (No longer needed) Drive intox or ride w/intox driver engineer: No Working smoke detector in home: Yes Carbon monox detector in home: Yes Firearms in home: Yes Firearms unloaded and locked: No Do you feel safe at home: Yes Do you feel safe in your relationship?: Yes Victim of physical abuse: No Victim of emotional abuse: No Victim of sexual abuse: No Would you like helpful sources: No
[2025-01-25 11:05] VITALS: BP 114/74; PULSE 58; RESP 20; TEMP 36.7; O2SAT 98
== END 2025-01-25 11:17 | disposition home or self-care (01) ==
PROVIDERS: Emergency Provider Physician Assistant; PCP Nurse Practitioner Family
DX: H11.31 Conjunctival hemorrhage, right eye (principal)
CPT/HCPCS: 99283

== ENCOUNTER 2025-04-18 01:33 | Outpatient (CLI) | payer MEDICARE, SELFPAY ==
[2025-04-18 14:42] LABS: ALT 35 U/L (10-49); AST 28 U/L (<34); Albumin 4.3 g/dL (3.2-5.0); Alkaline Phosphatase 126 U/L (46-116); Anion Gap 8.7 mmol/L (3-11); BUN 20 mg/dL (9-23); Bilirubin, Total 1.00 mg/dL (0.2-1.2); CO2 30.3 mmol/L (20.0-31.0); Calcium 9.6 mg/dL (8.3-10.6); Chloride 106 mmol/L (98-107); Glucose 90 mg/dL (74-106); Potassium 3.7 mmol/L (3.5-5.1); Sodium 145 mmol/L (136-145); Total Protein 7.3 g/dL (5.7-8.2)
== END 2025-04-18 01:34 | disposition home or self-care (01) ==
PROVIDERS: PCP Nurse Practitioner Family; Visit Provider Internal Medicine
DX: C61 Malignant neoplasm of prostate (principal)
CPT/HCPCS: 36415; 80053; 84153; 84403